=== PATIENT | female | born 1960 | race Caucasian/White ===

== ENCOUNTER 2020-07-05 08:21 | Outpatient (REF) | payer OTHER, SELFPAY | END 2020-07-05 08:22 | disposition home or self-care (01) | LOC: HO.LAB 08:21 | PROVIDERS: PCP Internal Medicine; Referring Provider Internal Medicine; Visit Provider Internal Medicine | DX: Z20.822 Contact with and (suspected) exposure to COVID-19 (principal) | CPT/HCPCS: 36415; C9803; U0003 ==

== ENCOUNTER 2021-08-27 16:41 | Inpatient (IN) | payer OTHER, SELFPAY ==
--- NOTE | ~2021-08-27 | XR_ITS ---
EXAMINATION: XR CHEST CLINICAL INFORMATION: Shortness of breath. COMPARISON: Chest radiograph done earlier today at 1:57 PM. TECHNIQUE: AP view of the chest was obtained. FINDINGS: Patient's rotation limits assessment of the left lower lobe where there are some questionable new patchy airspace opacities with a small left pleural effusion. There is also increased interstitial thickening in the right lower lobe. No pneumothorax. No acute osseous abnormalities. Unchanged cardiomegaly. XR/XR chest 1V IMPRESSION: Limited examination as above. However, accounting for these limitations, there appears to be increased interstitial thickening in the lower lungs with some questionable more focal patchy airspace opacities in the left lower lobe where there is also suggestion of a small left pleural effusion. Findings could be related with aspiration or developing infiltrates.
--- NOTE | ~2021-08-27 | CT_ITS ---
EXAMINATION: CT HEAD WITHOUT CONTRAST CLINICAL INFORMATION: Dizziness. Horizontal nystagmus. COMPARISON: None TECHNIQUE: Contiguous axial imaging was performed from the skull base to vertex without intravenous administration of contrast. This CT examination was performed using dose optimization techniques as appropriate, variously including the following: *Automated exposure control. *Adjustment of mA and/or kV according to patient size (this includes techniques or standardized protocols for targeted exams where dose is matched to indication/reason for exam; i.e. extremities or head). *Use of iterative reconstruction technique. DLP: 930 mGy-cm FINDINGS: There is no evidence of acute intracranial hemorrhage or territorial infarction. No abnormal mass effect or midline shift is seen. [id number] matter differentiation is well preserved. No extra-axial fluid collections are identified. The ventricles are normal in size. There is no abnormal attenuation within the brain parenchyma. The osseous structures and soft tissues are normal. Diffuse mucoperiosteal thickening throughout the maxillary sinuses and ethmoid air cells. CT/CT head/brain wo con IMPRESSION: No acute intracranial hemorrhage or mass effect.
--- NOTE | ~2021-08-27 | CT_ITS ---
EXAMINATION: CTA OF THE HEAD/NECK CLINICAL INFORMATION: Headache. Dizziness. Double vision. Hypertensive urgency. COMPARISON: Head CT from earlier today. TECHNIQUE: A routine non contrast head CT was performed earlier in the evening. This is followed by a 70 mL bolus of Omnipaque 350. Subsequent multidetector helical imaging was performed of the head and neck. Delayed post contrast imaging was also performed through the head. Multiplanar reformats and MIP were also obtained. Internal carotid artery stenoses are assessed in accordance with NASCET criteria unless otherwise indicated. This CT examination was performed using dose optimization techniques as appropriate, variously including the following: *Automated exposure control *Adjustment of mA and/or kV according to patient size (this includes techniques or standardized protocols for targeted exams where dose is matched to indication/reason for exam; i.e. extremities or head) *Use of iterative reconstruction technique DLP: 1770 mGy-cm. FINDINGS: CT HEAD: There is no evidence of acute intracranial hemorrhage or territorial infarction. No abnormal mass effect or midline shift is seen. Rodriguez to white matter differentiation is well preserved. No extra-axial fluid collections are identified. No suspicious leptomeningeal or parenchymal enhancement on the post-contrast images. No hydrocephalus. No significant volume loss. Patchy periventricular and deep white matter hypoattenuation is consistent with mild small vessel ischemic changes. Chronic appearing right periventricular frontal infarct. The osseous structures and soft tissues are normal. The mastoid air cells are well aerated. Moderate mucoperiosteal thickening throughout the paranasal sinuses. CTA NECK: The aortic arch is of normal caliber and the origins of the great vessels are patent without evidence of significant stenosis. The cervical portion of the vertebral arteries are patent bilaterally. No luminal irregularities in the common carotid arteries and the carotid bifurcations are patent bilaterally. The cervical portion of the internal carotid arteries are of normal caliber. The laryngeal structures and pharyngeal mucosal spaces are unremarkable. The oral cavity appears normal. The parotid and submandibular glands are normal. No pathologically enlarged lymph nodes. The thyroid gland is unremarkable. The lung apices are clear without evidence of pneumothorax. Spinal alignment is maintained. Mild cervical spondylosis is noted. CTA HEAD: The intradural portion of the vertebral arteries are of normal caliber. The basilar, superior cerebellar, and posterior communicating arteries are patent. The posterior, middle, and anterior cerebral arteries are of normal caliber without evidence of significant luminal irregularity. The left posterior cerebral artery is essentially supplied through the anterior circulation via the posterior communicating artery. No definite intracranial aneurysms. CT/CT angio head neck IMPRESSION: 1. No acute vascular abnormality. No large vessel occlusion or flow-limiting stenosis. 2. No acute intracranial finding.
--- NOTE | ~2021-08-27 | XR_ITS ---
EXAMINATION: XR CHEST CLINICAL INFORMATION: Aspiration COMPARISON: None TECHNIQUE: Frontal view of the chest was obtained. FINDINGS: The cardiac silhouette is enlarged. This appears increased in size from November 2008 exam. There is bilateral subsegmental atelectasis. No evidence of pneumonia is seen. There is no pleural effusion or pneumothorax. There are degenerative changes of the spine. XR/XR chest 1V IMPRESSION: Enlarged cardiac silhouette. This may be increased from prior chest x-ray. Bilateral subsegmental atelectasis. No evidence of pneumonia.
--- NOTE | ~2021-08-27 | XR_ITS ---
EXAMINATION: XR CHEST CLINICAL INFORMATION: Shortness of breath COMPARISON: Previous chest x-ray most recent from yesterday TECHNIQUE: Frontal view of the chest was obtained. FINDINGS: The cardiac silhouette is enlarged but stable. There may be pulmonary venous redistribution. The lungs are otherwise clear. There is no pleural effusion or pneumothorax. Bony structures are unremarkable. XR/XR chest 1V IMPRESSION: Stable enlargement of the cardiac silhouette. Question pulmonary venous redistribution.
--- NOTE | ~2021-08-27 | MR_ITS ---
EXAMINATION: MR BRAIN WITHOUT CONTRAST CLINICAL INFORMATION: Nystagmus, vertigo, and dysphagia. Rule out posterior CVA. COMPARISON: Head CT 08/27/2021. TECHNIQUE: Multiplanar, multisequence imaging of the brain was performed without intravenous contrast. FINDINGS: A small acute infarct is seen within the left lateral medulla best defined on diffusion series 3 image 6 and 01/07. No large or territorial infarction is seen. There is no hemorrhage, mass, or extra-axial fluid collection. Moderate T2/FLAIR hyperintensity is seen within the cerebral white matter and central velma compatible with chronic microangiopathy. The ventricles are normal in size without hydrocephalus. The major arterial flow voids are grossly preserved at the skull base. There is paranasal sinus mucosal thickening. MR/MR head/brain wo con IMPRESSION: Motion degraded exam. Small focus of acute infarction the left lateral medulla compatible with posterior inferior cerebellar artery territory ischemia. Background changes of moderate chronic microangiopathy.
--- NOTE | ~2021-08-27 | XR_ITS ---
EXAMINATION: XR CHEST CLINICAL INFORMATION: SOB COMPARISON: Chest 01/29/2022 TECHNIQUE: Frontal view of the chest was obtained. FINDINGS: The lungs are hypoexpanded with patchy opacity seen in the left upper lobe slightly more prominent than 08/29/2021 suspicious of delivery. There is left lower lobe retrocardiac consolidation as well. The right lung is relatively clear. Heart size is borderline enlarged. Pulmonary vascularity is normal. No gross bony abnormality seen XR/XR chest 1V IMPRESSION: New left upper lobe patchy opacity in left lower lobe consolidation consistent with infiltrates
--- NOTE | 2021-08-27 16:55 | ED.DIZZY ---
HPI - Dizziness General Chief Complaint: Dizziness Stated Complaint: dizzy Time Seen by Provider: 08/27/21 16:55 Source: patient, EMS and interpreter and translator Mode of arrival: EMS Limitations: no limitations History of Present Illness HPI Narrative: 61 y/o female with history of DM, HTN, obesity, asthma who presents to the ER with acute onset of dizziness that started about 4-5 hours ago when she got up out of bed to go use the bathroom. It has been constant since and she feels like the room is spinning. She felt like she was going to fall down when she tried to stand up. She denies history of similar episodes. She denies any chest pain, SOB, any numbness, weakness, difficultly speaking or confusion. She has been drinking less water lately. She does not check her glucose at home and is on metformin for her diabetes. She recently stopped taking her verapamil in the last month because the pharmacy will not fill it for her. She has been taking her lisinopril and HCTZ daily. She denies a headache at this time. MD elicited complaint: dizziness Onset (ago): hour(s) (4) Timing: sudden onset Severity: severe Description: room spinning Context: change in body position History of similar symptoms: No Exacerbating factors: movement/ambulation and change in body position Relieving factors: nothing Associated symptoms: denies other symptoms Related Data Home Medications Medication Instructions Recorded Confirmed albuterol sulfate 1 amp INHALATION Q4H PRN 08/27/21 albuterol sulfate 90 mcg/actuation 2 puff PO Q6H PRN 08/27/21 breath activated powder inhaler (ProAir RespiClick) Previous Rx's Medication Instructions Recorded acetaminophen 650 mg 650 mg PO Q8H PRN 30 Days #90 tab 08/07/21 tablet,extended release (Tylenol 8 Hour) aspirin 81 mg tablet,delayed 81 mg PO DAILY 90 Days #90 tab 08/07/21 release (Adult Aspirin Regimen) budesonide 0.5 mg/2 mL suspension 0.25 mg INHALATION BID 30 Days #60 08/07/21 for nebulization (Pulmicort) ml fluticasone propionate 50 1 spray INTRANASAL DAILY 30 Days 08/07/21 mcg/actuation nasal #16 g spray,suspension (Flonase Allergy Relief) hydrochlorothiazide 25 mg tablet 25 mg PO DAILY 90 Days #90 tab 08/07/21 lisinopril 10 mg tablet 10 mg PO DAILY 90 Days #90 tab 08/07/21 metformin 500 mg tablet 500 mg PO BID 90 Days #180 tab 08/07/21 verapamil 240 mg 24 hr 240 mg PO DAILY 90 Days #90 cap 08/07/21 capsule,extended release Allergies Allergy/AdvReac Type Severity Reaction Status Date / Time No Known Allergies Allergy Verified 08/07/21 16:33 Review of Systems Review of Systems: Constitutional: No Fever, No Chills ENT/Mouth: No sore throat, No Rhinorrhea, No Swallowing Difficulty Eyes: No Eye Pain, No Swelling, No Redness, No vision changes Cardiovascular: No Chest Pain, No SOB, No Orthopnea, No Edema Respiratory: No Cough, No Sputum, No Wheezing, No dyspnea Gastrointestinal: No Nausea, No Vomiting, No Diarrhea, No abdominal Pain, No Hematochezia, No Melena Genitourinary: No Dysuria, No Urinary Frequency, No Hematuria Musculoskeletal: No joint pain, No Myalgias Skin: No Skin Lesions, No rash Neuro: No Weakness, No Numbness, + Dizziness, No Headache Psych: + Anxiety/Panic, No Depression Heme/Lymph: No Bruising, No Lymphadenopathy Endocrine: No Polyuria, No Polydipsia PMFSH Past Medical History Medical History Diabetes mellitus Essential hypertension Moderate asthma Surgical History History of cholecystectomy History of cholecystectomy History of open reduction and internal fixation (ORIF) procedure History of open reduction and internal fixation (ORIF) procedure History of tubal ligation History of tubal ligation Family History Family History Father Medical history unknown Mother Diabetes Hypertension Father Medical history unknown Mother Hypertension Diabetes Social History Social History Housing: Unknown / Unable to assess Alcohol intake: never Patient Tobacco Use Status: Current everyday Tobacco user Tobacco use type: Cigarette Cigarettes Per Day: 2 Years Smoked: 31 years e-Cigarette/Vaping Use: Never Used Second Hand Smoke Exposure: Yes Advance Directives: No Advance Directives Information Provided: No service: No Current occupational status: other Physical Exam Vital Signs: Vital Signs: Last Vital Signs Temp 98.1 F 08/27/21 18:27 Pulse 74 08/27/21 18:27 Resp 16 08/27/21 18:27 BP 191/102 H 08/27/21 18:27 Pulse Ox 91 L 08/27/21 18:27 BMI result Body Mass Index 47.0 Appearance: Alert. Oriented X3. No acute distress. Eyes: Pupils equal, round and reactive to light. EOMI, +horizontal nystagmus ENT: Pharynx normal. Right TM with effusion, no erythema or bulging. Normal left TM. Neck: Normal inspection. Neck supple. CVS: Normal heart rate and rhythm. Pulses normal. Respiratory: No respiratory distress. Breath sounds normal. Abdomen: Obese, Soft and nontender. +BS x4 Skin: Skin warm and dry. Normal skin color. Normal skin turgor. No rashes. Extremities: No lower extremity edema. Neuro: Oriented X 3. No motor deficit. No sensory deficit. Strength equal and symmetrical throughout. normal speech. Nonfocal. CN II-XII intact. NIH Stroke Scale Internal: Initial- Upon Arrival Level of Consciousness: Alert Level of Consciousness Questions: Answers both questions correctly Level of Consciousness Commands: Performs both tasks correctly Best Gaze: Normal Visual: No visual loss Facial Palsy: Normal Motor Arm (Right): No drift Motor Arm (Left): No drift Motor Leg (Right): No drift Motor Leg (Left): No drift Limb Ataxia: Absent Sensory: Normal Best Language: No aphasia Dysarthia: Normal Extinction and Inattention: No abnormality Score: 0 Course Course Course Narrative: 61-year-old female presents to the ER with acute onset of dizziness this happened about 4-5 hours ago when she stood up quickly. On arrival she reports that she feels like the room is spinning. Initial BP 238/125. On examination hortizontal nystagmus which could be indicative of BPPV. Her neuro exam is otherwise non-focal. NIH 0. Not a tPA candidate at this time, BP significantly elevated, timeline somewhere between 4-5 hours unknown for sure. Will give dose of meclizine and re-evaluate. Will also give dose of IV Labetalol for HTN urgency. Will get CT head, EKG, orthostatics, and lab workup as well. Reevaluation(s) Reevaluation #1: BP improved to 180-190s systolic after IV labetalol. Utox + cocaine. She denies drugs or ETOH on arrival. She now admits to using cocaine yesterday. Prior to that it was about 1 month ago. She reports her dizziness persists, although might be a little bit better after meclizine. Reevaluation #2: CT head is negative. She reports dizziness persists and she now has a generalized headache. No vision changes or chest pain. BP 210/100 shortly after labetalol. Repeat 179/96 with larger BP cuff- po verapamil ordered. Asking for food, has not eaten all day. Reevaluation #3: Now c/o double vision and continued room spinning sensation. Horizontal nystagmus still present. Concern for possible posterior CVA. Will plan for admission for further workup and management. Will need MRI of the brain. Spoke with hospitalist who is requesting CTA head/neck, will admit. Patient and updated on plan of care. Consultations Consultation #1: hospitalist Dr. Alex [facility] - Dizziness Medical Records Attestation: I reviewed the patient's medical records. Lab Data Attestation: I reviewed the patient's lab results. Result diagrams: 08/27/21 17:20 08/27/21 17:20 Labs: Lab Results 08/27/21 08/27/21 08/27/21 Range/Units 17:20 17:20 17:20 WBC 8.6 (4.8-10.8) X10*3/uL RBC 4.81 (4.20-5.50) X10*6/uL Hgb 14.0 (12.0-16.0) g/dl Hct 42.7 (37.0-47.0) % MCV 88.8 (80.0-98.0) fL MCH 29.1 (27.0-33.0) pg MCHC 32.8 (31.0-35.0) g/dl RDW 12.9 (11.0-16.0) % Plt Count 396 (160-400) X10*3/uL MPV 9.0 L (9.4-12.3) fL Immature Gran % (Auto) 0.2 (0.0-0.4) % Neut % (Auto) 79.4 H (45-73) % Lymph % (Auto) 15.4 L (20-40) % [place] % (Auto) 3.9 (2-11) % Eos % (Auto) 0.9 (0-4) % Baso % (Auto) 0.2 (0-2) % Lymph # (Auto) 1.3 (1.2-4.9) X10*3/uL [place] # (Auto) 0.3 (0.1-1.2) X10*3/uL Eos # (Auto) 0.1 (0.0-0.4) X10*3/uL Baso # (Auto) 0.0 (0.0-0.2) X10*3/uL Abs Immat Gran (auto) 0.02 (0.00-0.03) X10*3/uL Absolute Neuts (auto) 6.8 (2.0-8.3) x10*3/uL Absolute Nucleated RBC 0.000 (0.0-0.012) X10*3/uL Nucleated RBC % (auto) 0.0 (0.0-0.2) /100WBC Sodium 138 (135-145) mmol/L Potassium 3.9 (3.3-5.1) mmol/L Chloride 98 (96-108) mmol/L Carbon Dioxide 29 (22-29) mmol/L Anion Gap 15 (12-20) BUN 8 L (9-16) mg/dL Creatinine 0.77 (0.5-1.4) mg/dL Estim Creat Clear Calc 90.6 Estimated GFR > 60 Random Glucose 179 H (60-115) mg/dL Calcium 9.2 (8.4-10.2) mg/dL Magnesium 1.8 (1.6-2.6) mg/dL Total Bilirubin 0.4 (0.0-1.0) mg/dL Direct Bilirubin 0.2 (0.0-0.5) mg/dL AST 13 (5-31) U/L ALT 12 (0-31) U/L Alkaline Phosphatase 73 (39-117) U/L Troponin I High Sens 7.9 (<3.5-17.0) ng/L Total Protein 7.1 (6.5-8.0) g/dL Albumin 4.1 (3.5-5.0) g/dL Urine Color Urine Appearance Urine pH (5.0-8.0) Ur Specific [place] (1.005-1.025) Urine Protein (NEG-TRACE) MG/DL Urine Glucose (UA) (NEG) MG/DL Urine Ketones (NEG) MG/DL Urine Blood (NEG) Urine Nitrite (NEG) Ur Leukocyte Esterase (NEG) Urine Opiates Screen (Not Detect) Urine Fentanyl Screen (Not Detect) Ur Barbiturates Screen (Not Detect) Ur Phencyclidine Scrn (Not Detect) Ur Amphetamines Screen (Not Detect) U Benzodiazepines Scrn (Not Detect) Urine Cocaine Screen (Not Detect) U Marijuana (THC) Screen (Not Detect) COVID-19 (MICHEL) (Negative) COVID-19 Clin Com 08/27/21 08/27/21 08/27/21 Range/Units 17:35 17:48 17:49 WBC (4.8-10.8) X10*3/uL RBC (4.20-5.50) X10*6/uL Hgb (12.0-16.0) g/dl Hct (37.0-47.0) % MCV (80.0-98.0) fL MCH (27.0-33.0) pg MCHC (31.0-35.0) g/dl RDW (11.0-16.0) % Plt Count (160-400) X10*3/uL MPV (9.4-12.3) fL Immature Gran % (Auto) (0.0-0.4) % Neut % (Auto) (45-73) % Lymph % (Auto) (20-40) % [place] % (Auto) (2-11) % Eos % (Auto) (0-4) % Baso % (Auto) (0-2) % Lymph # (Auto) (1.2-4.9) X10*3/uL [place] # (Auto) (0.1-1.2) X10*3/uL Eos # (Auto) (0.0-0.4) X10*3/uL Baso # (Auto) (0.0-0.2) X10*3/uL Abs Immat Gran (auto) (0.00-0.03) X10*3/uL Absolute Neuts (auto) (2.0-8.3) x10*3/uL Absolute Nucleated RBC (0.0-0.012) X10*3/uL Nucleated RBC % (auto) (0.0-0.2) /100WBC Sodium (135-145) mmol/L Potassium (3.3-5.1) mmol/L Chloride (96-108) mmol/L Carbon Dioxide (22-29) mmol/L Anion Gap (12-20) BUN (9-16) mg/dL Creatinine (0.5-1.4) mg/dL Estim Creat Clear Calc Estimated GFR Random Glucose (60-115) mg/dL Calcium (8.4-10.2) mg/dL Magnesium (1.6-2.6) mg/dL Total Bilirubin (0.0-1.0) mg/dL Direct Bilirubin (0.0-0.5) mg/dL AST (5-31) U/L ALT (0-31) U/L Alkaline Phosphatase (39-117) U/L Troponin I High Sens (<3.5-17.0) ng/L Total Protein (6.5-8.0) g/dL Albumin (3.5-5.0) g/dL Urine Color STRAW Urine Appearance CLEAR Urine pH 8.0 (5.0-8.0) Ur Specific [place] 1.015 (1.005-1.025) Urine Protein NEG (NEG-TRACE) MG/DL Urine Glucose (UA) NEG (NEG) MG/DL Urine Ketones NEG (NEG) MG/DL Urine Blood NEG (NEG) Urine Nitrite NEG (NEG) Ur Leukocyte Esterase NEG (NEG) Urine Opiates Screen Not Detected (Not Detect) Urine Fentanyl Screen Not Detected (Not Detect) Ur Barbiturates Screen Not Detected (Not Detect) Ur Phencyclidine Scrn Not Detected (Not Detect) Ur Amphetamines Screen Not Detected (Not Detect) U Benzodiazepines Scrn Not Detected (Not Detect) Urine Cocaine Screen POSITIVE H (Not Detect) U Marijuana (THC) Screen Not Detected (Not Detect) COVID-19 (MICHEL) Negative (Negative) COVID-19 Clin Com See Note ECG Data Attestation: I personally reviewed and interpreted this ECG as follows: ECG interpretation date: 08/27/21 Prior ECG tracings: not available for review Interpretation: Normal sinus rhythm with premature atrial complexes, heart rate 73 beats per minute, normal NC interval, no ST segment elevations or depressions. Critical Care Time Critical Care Time Critical Care Time: Yes Total Critical Care Time: 46 Attestation: I have personally provided critical care time exclusive of time spent on separately billable procedures. Time includes review of lab data, radiology results, frequent bedside reasessments, discussion with consultants, and monitoring for potential decompensation. Intervention performed as documented. Discharge Plan Discharge Clinical Impression: Hypertensive urgency, Dizziness Patient Disposition: Admitted As Inpatient
--- NOTE | 2021-08-27 16:56 | ECG_ITS ---
Test Reason : dizzyness Blood Pressure : / mmHG Vent. Rate : 073 BPM Atrial Rate : 073 BPM P-R Int : 114 ms QRS Dur : 086 ms QT Int : 434 ms P-R-T Axes : 057 011 056 degrees QTc Int : 478 ms Sinus rhythm with Premature atrial complexes Otherwise normal ECG When compared to the previous EKG of No significant changes seen Referred By: Estefany Kelley Electronically Signed By:Pawel Tasng
[2021-08-27 17:01] VITALS: BP 238/125; PULSE 80; RESP 18; TEMP 36.8; O2SAT 96; BMI 47.0
[2021-08-27] MEDS: Meclizine HCl 25 MG TABLET 50 MG PO (17:10)
[2021-08-27 17:36] LABS: MANUAL DIFF FLAG NO
[2021-08-27] MEDS: Labetalol HCL 100 MG/20 ML VIAL 20 MG IVPUSH (17:36)
[2021-08-27 17:38] LABS: Basophils Percent Auto 0.2 % (0-2); Eosinophils Absolute Auto 0.1 X10*3/uL (0.0-0.4); Eosinophils Percent Auto 0.9 % (0-4); Hematocrit 42.7 % (37.0-47.0); Imm Gran Abs Auto 0.02 X10*3/uL (0.00-0.03); Imm Gran Pct Auto 0.2 % (0.0-0.4); Lymphocytes Absolute Auto 1.3 X10*3/uL (1.2-4.9); Lymphocytes Percent Auto 15.4 % (20-40); Mean Corpuscular HGB Conc 32.8 g/dl (31.0-35.0); Mean Corpuscular Hemoglobin 29.1 pg (27.0-33.0); Mean Corpuscular Volume 88.8 fL (80.0-98.0); Monocytes Absolute Auto 0.3 X10*3/uL (0.1-1.2); Monocytes Percent Auto 3.9 % (2-11); Neutrophils Absolute Auto 6.8 x10*3/uL (2.0-8.3); Neutrophils Percent Auto 79.4 % (45-73); Platelet Count 396 X10*3/uL (160-400); Red Blood Count 4.81 X10*6/uL (4.20-5.50); Red Cell Distribution Width 12.9 % (11.0-16.0); White Blood Count 8.6 X10*3/uL (4.8-10.8)
[2021-08-27 17:55] LABS: Appearance Urine CLEAR; Color Urine STRAW; Glucose Urine UA NEG (NEG); Leukocyte Esterase Urine NEG (NEG); Nitrite Urine NEG (NEG); Specific Gravity - Urine 1.015 (1.005-1.025); Urine Blood NEG (NEG); Urine Ketones NEG (NEG); Urine Protein NEG (NEG-TRACE)
[2021-08-27 17:59] VITALS: BP 187/110; PULSE 79; RESP 17; TEMP 37.1; O2SAT 95
[2021-08-27 18:05] LABS: Alanine Aminotransferase 12 U/L (0-31); Albumin Level 4.1 g/dL (3.5-5.0); Alkaline Phosphatase 73 U/L (39-117); Anion Gap 15 (12-20); Aspartate Amino Transferase 13 U/L (5-31); Bilirubin Direct 0.2 mg/dL (0.0-0.5); Bilirubin Total 0.4 mg/dL (0.0-1.0); Blood Urea Nitrogen 8 mg/dL (9-16); Calcium 9.2 mg/dL (8.4-10.2); Carbon Dioxide 29 mmol/L (22-29); Chloride 98 mmol/L (96-108); Creatinine Clr Calc Pharmacy 90.6; Estimated Glomerular Filt Rate > 60; Glucose Random 179 mg/dL (60-115); Magnesium 1.8 mg/dL (1.6-2.6); Potassium 3.9 mmol/L (3.3-5.1); Sodium 138 mmol/L (135-145); Total Protein 7.1 g/dL (6.5-8.0); Troponin-I High Sensitivity 7.9 ng/L (<3.5-17.0)
[2021-08-27 18:08] LABS: Amphetamine Screen Urine Not Detected (Not Detect); Barbiturates, Urine Not Detected (Not Detect); Benzodiazepines Screen Urine Not Detected (Not Detect); Cannabinoid Screen Urine Not Detected (Not Detect); Cocaine Screen Urine POSITIVE (Not Detect); Fentanyl, urine Not Detected (Not Detect); Opiate Screen Urine Not Detected (Not Detect); Phencyclidine Screen Urine Not Detected (Not Detect)
[2021-08-27 18:18] LABS: IDNOW Serial# 55D5AD1C
[2021-08-27 18:19] LABS: COVID-19 Test Negative (Negative)
[2021-08-27 18:27] VITALS: BP 191/102; PULSE 74; RESP 16; TEMP 36.7; O2SAT 91
[2021-08-27 21:07] VITALS: BP 172/92; PULSE 68
--- NOTE | 2021-08-27 21:10 | PC.NURSE ---
Attempted Orthostatics at 21:10 - pt too unstable to sit or stand at this time.
--- NOTE | 2021-08-27 21:16 | PHA.MEDREC ---
Pharmacy Consult ? Medication Reconciliation Pharmacy has completed the medication reconciliation. No remarkable issues. Ana Espinoza, FantasmaD
[2021-08-27] MEDS: Acetaminophen 325 MG TABLET 975 MG PO (22:21)
[2021-08-27] MEDS: VerapamiL HCL SR 240 MG TABLET.ER PO (22:22)
[2021-08-27] MEDS: iohexoL 350 MG/ML 100 ML INFUS..BTL IV (22:43)
--- NOTE | 2021-08-27 22:53 | P.HPHOSP_ITS ---
History of Present Illness Date of Service: 08/27/21 Chief Complaint: dizziness 61-year-old female with a past medical history of hypertension, hyperlipidemia, diabetes, substance abuse presented to the hospital with a chief complaint of dizziness. patient reported that at 06:30 in the morning she went to the bed and she woke up around 03:00 o'clock; when she woke up she felt dizzy, felt like room spinning associated nausea; denied any chest pain or palpitations. mentioned that she was not able to get up; felt tired; denies any fever chills cough. denies any headaches or blurry visions. patient mentions that she has not been taking her verapamil; only taking lisinopril hydrochlorothiazide. denies any gi gu symptoms. review of all other systems is negative except mentioned above er course: per er team patient on presentation noted to have systolic blood pressure in 230s; ct head was done which showed no acute findings; exam was grossly nonfocal except for mild nystagmus horizontally; no focal deficits; patient was given iv labetalol; u tox was positive for cocaine; ct angio head and neck was done which showed no acute findings; patient continued to have dizziness/ room spinning; given dose of meclizine with no significant improvement. admitted to the hospital for further management [facility] Medical History Diabetes mellitus Essential hypertension Moderate asthma Family History Father Medical history unknown Mother Diabetes Hypertension Father Medical history unknown Mother Hypertension Diabetes Surgical History History of cholecystectomy History of cholecystectomy History of open reduction and internal fixation (ORIF) procedure History of open reduction and internal fixation (ORIF) procedure History of tubal ligation History of tubal ligation Social History Housing: Unknown / Unable to assess Alcohol intake: never Patient Tobacco Use Status: Current everyday Tobacco user Tobacco use type: Cigarette Cigarettes Per Day: 2 Years Smoked: 31 years e-Cigarette/Vaping Use: Never Used Second Hand Smoke Exposure: Yes Advance Directives: No Advance Directives Information Provided: No service: No Current occupational status: other Meds Allergies Allergy/AdvReac Type Severity Reaction Status Date / Time No Known Allergies Allergy Verified 08/07/21 16:33 Active Medications: Current Medications Acetaminophen (Acetaminophen 325 Mg Tablet) 650 mg PO Q6H PRN PRN Reason: Pain, Mild (Pain Scale 1-3) Dextrose (Dextrose 50 % 25 Gm/50 Ml Vial) 25 gm IVPUSH Q15M PRN; Protocol PRN Reason: per Hypoglycemia Standing Ord. Glucose (Glucose Gel 15 Gm Gel..Gram.) 15 gm PO Q15M PRN; Protocol PRN Reason: per Hypoglycemia Standing Ord. Heparin Sodium (Porcine) (Heparin Sodium,Porcine 5,000 Unit/Ml Vial) 5,000 unit SUBCUT Q8H EUGENIO Hydromorphone HCl (Hydromorphone Hcl 1 Mg/Ml Syringe) 0.5 mg IVPUSH Q4H PRN; Protocol PRN Reason: Pain, Severe (Pain Scale 7-10) Insulin Human Lispro (Insulin Lispro 100 Unit/Ml 3 Ml Vial) 0 unit SUBCUT QIDACHS [facility]; Protocol Melatonin (Melatonin 3 Mg Tablet) 6 mg PO BEDTIME PRN PRN Reason: Insomnia Pharmacy Consult (Consult Rx Perform Med Rec) 1 each MISCELLANE ONCE PRN PRN Reason: Consult order Senna (Sennosides 8.6 Mg Tablet) 17.2 mg PO BEDTIME PRN PRN Reason: Constipation Sodium Chloride (0.9 % Sodium Chloride Flush 3 Ml Syringe) [address] [facility] Home Medications Medication Instructions Recorded Confirmed Last Taken Type albuterol sulfate 1 amp INHALATION Q4H PRN 08/27/21 08/27/21 Unknown History albuterol sulfate 90 mcg/actuation 2 puff PO Q6H PRN 08/27/21 08/27/21 Unknown History breath activated powder inhaler (ProAir RespiClick) Physical Exam Vital Signs and Narrative: Vital Signs: Last Vital Signs Temp 98.1 F 08/27/21 18:27 Pulse 68 08/27/21 21:07 Resp 16 08/27/21 18:27 BP 172/92 H 08/27/21 21:07 Pulse Ox 91 L 08/27/21 18:27 BMI result Body Mass Index 47.0 GEN: APPEARS BE IN NO ACUTE DISTRESS HEENT: NCAT, MOIST [place]. PULMONARY: VESICULAR BREATH SOUNDS, FAIR AIR ENTRY CVS: NORMAL S1-S2 ABDOMEN: BS+, SOFT, NONTENDER EXTREMITIES: WARM WELL PERFUSED NEURO: ALERT AND AWAKE. grossly nonfocal Results Labs CBC and Chem 7: 08/27/21 17:20 08/27/21 17:20 Labs: Laboratory Results - last 24 hr 08/27/21 08/27/21 08/27/21 17:20 17:20 17:35 MCV 88.8 MCH 29.1 MCHC 32.8 RDW 12.9 Plt Count 396 MPV 9.0 L Immature Gran % (Auto) 0.2 Neut % (Auto) 79.4 H Lymph % (Auto) 15.4 L [place] % (Auto) 3.9 Eos % (Auto) 0.9 Baso % (Auto) 0.2 Lymph # (Auto) 1.3 [place] # (Auto) 0.3 Eos # (Auto) 0.1 Baso # (Auto) 0.0 Abs Immat Gran (auto) 0.02 Absolute Neuts (auto) 6.8 Absolute Nucleated RBC 0.000 Nucleated RBC % (auto) 0.0 Anion Gap 15 Estim Creat Clear Calc 90.6 Estimated GFR > 60 Random Glucose 179 H Calcium 9.2 Magnesium 1.8 Total Bilirubin 0.4 Direct Bilirubin 0.2 AST 13 ALT 12 Alkaline Phosphatase 73 Total Protein 7.1 Albumin 4.1 Urine Color Urine Appearance Urine pH Ur Specific [place] Urine Protein Urine Glucose (UA) Urine Ketones Urine Blood Urine Nitrite Ur Leukocyte Esterase Urine Opiates Screen Urine Fentanyl Screen Ur Barbiturates Screen Ur Phencyclidine Scrn Ur Amphetamines Screen U Benzodiazepines Scrn Urine Cocaine Screen U Marijuana (THC) Screen COVID-19 (MICHEL) Negative COVID-19 Clin Com See Note 08/27/21 08/27/21 17:48 17:49 MCV MCH MCHC RDW Plt Count MPV Immature Gran % (Auto) Neut % (Auto) Lymph % (Auto) [place] % (Auto) Eos % (Auto) Baso % (Auto) Lymph # (Auto) [place] # (Auto) Eos # (Auto) Baso # (Auto) Abs Immat Gran (auto) Absolute Neuts (auto) Absolute Nucleated RBC Nucleated RBC % (auto) Anion Gap Estim Creat Clear Calc Estimated GFR Random Glucose Calcium Magnesium Total Bilirubin Direct Bilirubin AST ALT Alkaline Phosphatase Total Protein Albumin Urine Color STRAW Urine Appearance CLEAR Urine pH 8.0 Ur Specific [place] 1.015 Urine Protein NEG Urine Glucose (UA) NEG Urine Ketones NEG Urine Blood NEG Urine Nitrite NEG Ur Leukocyte Esterase NEG Urine Opiates Screen Not Detected Urine Fentanyl Screen Not Detected Ur Barbiturates Screen Not Detected Ur Phencyclidine Scrn Not Detected Ur Amphetamines Screen Not Detected U Benzodiazepines Scrn Not Detected Urine Cocaine Screen POSITIVE H U Marijuana (THC) Screen Not Detected COVID-19 (MICHEL) COVID-19 Clin Com Imaging Radiologist's Impressions: Impressions Head CT 08/27/21 18:34 IMPRESSION: No acute intracranial hemorrhage or mass effect. Assessment and Plan (1) Hypertensive urgency: Status: Acute (2) Dizziness: Status: Acute Plan 61-year-old female with a past medical history of hypertension, hyperlipidemia, diabetes, substance abuse presented to the hospital with a chief complaint of dizziness. admitted for following hypertensive urgency: patient reported that she used cocaine the night before; denies any headaches or blurry visions. reports she has not been taking verapamil. continue patient on lisinopril, hydrochlorothiazide. will defer to the day hospitalist to confirm with the pcp if verapamil has been discontinued labetalol p.r.n. dizziness: patient reports dizziness as room spinning. ct head and ct angio head and neck showed no acute findings. ekg nonischemic troponin negative telemetry fall precautions pt/ot eventually neurology consult meclizine p.r.n. diabetes: insulin sliding scale dvt prophylaxis: subcu heparin code status: full code Quality Stroke Does the patient have a stroke diagnosis?: No VTE Prior VTE?: No VTE Risk Level:: Medical - moderate - high VTE Device Contraindication: Treatment Not Indicated VTE Drug Contraindication: N/A - Med Ordered
--- NOTE | 2021-08-27 23:07 | PC.NURSE ---
Pt repositioned, placed on bed side commode. may care completed and pt repositoined.
[2021-08-27 23:45] VITALS: BP 189/89; PULSE 84; RESP 16; O2SAT 95
[2021-08-28] VITALS (7 sets, daily range): BP systolic 135–203; BP diastolic 64–140; PULSE 75–97; RESP 13–20; TEMP 36.6; O2SAT 91–98
[2021-08-28] MEDS: Heparin Sodium,Porcine 5,000 UNIT/ML VIAL 5000 UNIT SUBCUT ×2 (01:13→07:46)
--- NOTE | 2021-08-28 01:28 | PC.NURSE ---
pt is able to speak in full sentence and responds to questions appropriately. pt continue to complain about dizziness provider into assess pt.
[2021-08-28] MEDS: Labetalol HCL 100 MG/20 ML VIAL 10 MG IVPUSH (03:51)
[2021-08-28 06:30] LABS: MANUAL DIFF FLAG NO
[2021-08-28 06:52] LABS: Basophils Percent Auto 0.2 % (0-2); Eosinophils Absolute Auto 0.1 X10*3/uL (0.0-0.4); Eosinophils Percent Auto 0.6 % (0-4); Hematocrit 43.4 % (37.0-47.0); Hemoglobin 14.2 g/dl (12.0-16.0); Imm Gran Abs Auto 0.11 X10*3/uL (0.00-0.03); Lymphocytes Absolute Auto 1.6 X10*3/uL (1.2-4.9); Lymphocytes Percent Auto 14.5 % (20-40); Mean Corpuscular HGB Conc 32.7 g/dl (31.0-35.0); Mean Corpuscular Hemoglobin 29.1 pg (27.0-33.0); Mean Corpuscular Volume 88.9 fL (80.0-98.0); Mean Platelet Volume 9.2 fL (9.4-12.3); Monocytes Absolute Auto 0.5 X10*3/uL (0.1-1.2); Monocytes Percent Auto 4.6 % (2-11); Neutrophils Absolute Auto 8.4 x10*3/uL (2.0-8.3); Neutrophils Percent Auto 79.1 % (45-73); Platelet Count 395 X10*3/uL (160-400); Red Blood Count 4.88 X10*6/uL (4.20-5.50); White Blood Count 10.7 X10*3/uL (4.8-10.8)
[2021-08-28 06:58] LABS: Troponin-I High Sensitivity 15.2 ng/L (<3.5-17.0)
[2021-08-28 06:59] LABS: Anion Gap 13 (12-20); Blood Urea Nitrogen 8 mg/dL (9-16); Carbon Dioxide 29 mmol/L (22-29); Chloride 98 mmol/L (96-108); Creatinine Clr Calc Pharmacy 89.4; Estimated Glomerular Filt Rate > 60; Glucose Random 141 mg/dL (60-115); Potassium 3.6 mmol/L (3.3-5.1); Sodium 136 mmol/L (135-145)
[2021-08-28] MEDS: 0.9 % Sodium Chloride Flush 3 ML SYRINGE IVFLUSH ×2 (07:46→17:04)
[2021-08-28] MEDS: Meclizine HCl 25 MG TABLET PO (07:53)
--- NOTE | 2021-08-28 07:55 | PC.NURSE ---
pt medicated with meclazine for dizziness, pt took one sip of water and started to coughing and spitting up,
--- NOTE | 2021-08-28 08:03 | PC.NURSE ---
pt sleepy but easily arousable, respirations even unlabored, pt reports feeling dizzy, denies pain at this time
--- NOTE | 2021-08-28 10:30 | P.CNNE_ITS ---
History of Present Illness Data of Consult Service Date: 08/28/21 Primary Care Provider: Unknown Physician HPI Reason for consult: Dizziness 61 years old woman with hypertension who woke up in the middle of night and felt severe dizziness like things were moving. When she tried to walk she was unsteady. When I saw her she was still feeling dizzy. There was no recent cold or flu-like illness or headache. There was no change in her speech or language pattern or any focal weakness. Review of Systems Review of Systems: No recent cold or flu-like illness per [facility] Past Medical History Medical History Diabetes mellitus Essential hypertension Moderate asthma Family History Family History Father Medical history unknown Mother Diabetes Hypertension Father Medical history unknown Mother Hypertension Diabetes Surgical History Surgical History History of cholecystectomy History of cholecystectomy History of open reduction and internal fixation (ORIF) procedure History of open reduction and internal fixation (ORIF) procedure History of tubal ligation History of tubal ligation Social History Social History Housing: Unknown / Unable to assess Alcohol intake: never Patient Tobacco Use Status: Current everyday Tobacco user Tobacco use type: Cigarette Cigarettes Per Day: 2 Years Smoked: 31 years e-Cigarette/Vaping Use: Never Used Second Hand Smoke Exposure: Yes Advance Directives: No Advance Directives Information Provided: No service: No Current occupational status: other Meds Allergies Allergy/AdvReac Type Severity Reaction Status Date / Time No Known Allergies Allergy Verified 08/07/21 16:33 Active Medications: Current Medications Acetaminophen (Acetaminophen 325 Mg Tablet) 650 mg PO Q6H PRN PRN Reason: Pain, Mild (Pain Scale 1-3) Albuterol Sulfate (Albuterol Sulfate (0.083%) 2.5 Mg/3 Ml Vial.Neb) 2.5 mg INHALE Q4H PRN PRN Reason: wheezing Aspirin (Aspirin Enteric Coated 81 Mg Tablet.) 81 mg PO DAILY EUGENIO Dextrose (Dextrose 50 % 25 Gm/50 Ml Vial) 25 gm IVPUSH Q15M PRN; Protocol PRN Reason: per Hypoglycemia Standing Ord. Fluticasone Propionate (Fluticasone Propionate Nasal 16 Gm [place]) 1 spray NOSTRIL-B DAILY [facility] Glucose (Glucose Gel 15 Gm Gel..Gram.) 15 gm PO Q15M PRN; Protocol PRN Reason: per Hypoglycemia Standing Ord. Heparin Sodium (Porcine) (Heparin Sodium,Porcine 5,000 Unit/Ml Vial) 5,000 unit SUBCUT Q8H [facility] Last Admin: 08/28/21 07:46 Dose: 5,000 unit Documented by: Hydrochlorothiazide (Hydrochlorothiazide 25 Mg Tablet) 25 mg PO DAILY [facility]; Protocol Hydromorphone HCl (Hydromorphone Hcl 1 Mg/Ml Syringe) 0.5 mg IVPUSH Q4H PRN; Protocol PRN Reason: Pain, Severe (Pain Scale 7-10) Insulin Human Lispro (Insulin Lispro 100 Unit/Ml 3 Ml Vial) 0 unit SUBCUT QIDACHS [facility]; Protocol Last Admin: 08/28/21 07:47 Dose: Not Given Documented by: Labetalol HCl (Labetalol Hcl 100 Mg/20 Ml Vial) 10 mg IVPUSH Q4H PRN PRN Reason: BP>160/90 Last Admin: 08/28/21 03:51 Dose: 10 mg Documented by: Lisinopril (Lisinopril 10 Mg Tablet) 10 mg PO DAILY [facility]; Protocol Meclizine HCl (Meclizine Hcl 25 Mg Tablet) 25 mg PO Q8H PRN PRN Reason: dizziness Last Admin: 08/28/21 07:53 Dose: 25 mg Documented by: Melatonin (Melatonin 3 Mg Tablet) 6 mg PO BEDTIME PRN PRN Reason: Insomnia Non-Formulary Medication (Budesonide [Pulmicort]) 0.25 mg INHALE BID [facility] Pharmacy Consult (Consult Rx Perform Med Rec) 1 each MISCELLANE ONCE PRN PRN Reason: Consult order Senna (Sennosides 8.6 Mg Tablet) 17.2 mg PO BEDTIME PRN PRN Reason: Constipation Sodium Chloride (0.9 % Sodium Chloride Flush 3 Ml Syringe) 3 ml IVFLUSH QSHIFT [facility] Last Admin: 08/28/21 07:46 Dose: 3 ml Documented by: Home Medications Medication Instructions Recorded Confirmed Last Taken Type albuterol sulfate 1 amp INHALATION Q4H PRN 08/27/21 08/27/21 Unknown History albuterol sulfate 90 mcg/actuation 2 puff PO Q6H PRN 08/27/21 08/27/21 Unknown History breath activated powder inhaler (ProAir RespiClick) Physical Exam Vital Signs: Vital Signs: Last Vital Signs Temp 97.8 F 08/28/21 04:09 Pulse 88 08/28/21 07:42 Resp 20 08/28/21 07:42 BP 168/94 H 08/28/21 07:42 Pulse Ox 97 08/28/21 07:42 BMI result Body Mass Index 47.0 Neuro: Other: She was alert and awake with normal spontaneity of speech fluency comprehension and affect. Into was performed with the help of an quantitative software engineer. Face was symmetrical. Tongue was midline. Pupils were equal and reactive to light. Extraocular muscles were intact. Visual claire are full to threat. There was mild left-sided drift. There was mild left [id number] ataxia and mild left- sided leg weakness. Plantars were flexors. Deep tendon reflexes were absent. Her initial blood pressure was 238/125. Results Labs CBC & Chem 7: 08/28/21 06:24 08/28/21 06:24 Labs: Short CBC 08/27/21 08/28/21 Range/Units 17:20 06:24 WBC 8.6 10.7 (4.8-10.8) X10*3/uL Hgb 14.0 14.2 (12.0-16.0) g/dl Hct 42.7 43.4 (37.0-47.0) % Plt Count 396 395 (160-400) X10*3/uL BMP 08/27/21 08/28/21 17:20 06:24 Sodium 138 136 Potassium 3.9 3.6 Chloride 98 98 Carbon Dioxide 29 29 BUN 8 L 8 L Creatinine 0.77 0.78 Calcium 9.2 9.0 Liver Function 08/27/21 Range/Units 17:20 Total Bilirubin 0.4 (0.0-1.0) mg/dL Direct Bilirubin 0.2 (0.0-0.5) mg/dL AST 13 (5-31) U/L ALT 12 (0-31) U/L Alkaline Phosphatase 73 (39-117) U/L Albumin 4.1 (3.5-5.0) g/dL Urine 08/27/21 Range/Units 17:49 Urine Color STRAW Urine Appearance CLEAR Urine pH 8.0 (5.0-8.0) Ur Specific [place] 1.015 (1.005-1.025) Urine Protein NEG (NEG-TRACE) MG/DL Urine Glucose (UA) NEG (NEG) MG/DL Noncontrast head CT did not reveal any acute abnormality though moderate microvascular ischemic changes were noted. CTA did not reveal any vascular lesion. Assessment and Plan (1) Dizziness: Status: Acute 61 years old woman with severe hypertension presented with acute onset of dizziness and unsteadiness. Her examination revealed mild left hemiparesis and imaging chronic microvascular ischemic changes. There is fair possibility of ischemic lesion or hypertension related encephalopathy. Blood pressure control and a noncontrast MRI of brain is recommended. Procedures Date of Service Date of Service: 08/28/21
[2021-08-28 11:27] LABS: HBc Num1 0.07 S/CO (0.00-0.79); HIV AB/AG Nonreactive (Nonreactive); HIV Num 1 0.03 S/CO (0.00-0.99); Hepatitis B Core Antibody Nonreactive (Nonreactive); Hepatitis B Surface Antigen Negative (Negative); ~HepC Num1 0.06 S/CO (0.00-0.79); ~Hepatitis B Surface Antibody NONREACTIVE (Nonreactive); ~Hepatitis C Antibody Nonreactive (Nonreactive)
--- NOTE | 2021-08-28 12:16 | PC.NURSE ---
report obtained from zan rubin being held npo due to swallow issues, [facility]- screening form done by staff prior to arrival of this nurse
--- NOTE | 2021-08-28 12:19 | MHC.CM.PN ---
CM MET WITH PT WITH THE ASSISTANCE OF A [facility] SPECIALIST PT REPORTS SHE LIVES AT HOME WITH HER AND IS INDEPENDENT WITH CARE PT DENIES USING HOME SERVICES AND STATES SHE HAS HOME OXYGEN THROUGH [facility] PT REPORTS ALFREDO MACKAY IS HER PCP PT COMPLETED A HCP TODAY NAMING HER S/O KASSY REYNOSO AND DAUGHTER, KAYLA PHILIP, HER PRIMARY AND ALTERNATE AGENTS RESPECTIVELY PT REPORTS HE RECEIVED THE M-Factor VACCINE AGAINST COVID-19, BUT NOT THE BOOSTER OBSERVATION NOTICE DELIVERED, COPY SENT TO [facility] CURRENT DC PLAN IS HOME VS HOME WITH [facility] FAMILY TO TRANSPORT
--- NOTE | 2021-08-28 12:25 | PC.NURSE ---
patient to MRI
--- NOTE | 2021-08-28 13:04 | MHC.SL.SWA ---
Speech Pathologist Impression: Oropharyngeal dysphagia Risk of Aspiration Due to: Lethargy Dysphasia Diet Status: Upgrade Liquid Consistency and Strategies for Safe Swallow: Liquid Intake Recommendation: [place] Thick Liquid Intake Strategies: Small Sips Solid Food Consistency: Dietary Recommendations: Regular Additional Modifications to Solid Foods: Patient displays overt s/s of aspiration when drinking thin liquid. Recommend REGULAR solids and NECTAR THICK liquid, pills WHOLE in PUREE. Patient is able to feed herself, but may require assistance with tray and would benefit from intermittent supervision to monitor tolerance and ensure aspiration precautions. Message sent to MD, RN, RD. BREAKFAST BAR ATTENDANT will continue to follow. Oral Medication Intake: Whole with Puree Please contact the pharmacy regarding appropriate crushable or liquid drug formulations that are available whenever modified delivery is recommended. Compensatory Strategies and Precautions to be Taken for Safe Swallow: Sitting Upright (90 deg) Small Bites and Sips Alternate Liquids/Solids Rate of Ingestion Change Supervision While Eating and Drinking for Safe Swallow: Intermittent Supervision Swallowing Recommended Treatments: Compens. Strategy Educat. Recommendation for Speech: Inpatient Speech Therapy Comment: BREAKFAST BAR ATTENDANT will f/u M-F Lever Operator Clinican/Clinical Fellow: No Supervisory Statement: I have reviewed and agree with the student/clinical fellow's documentation: N/A Speech Language Pathologist: Zelda De Santiago M.A., [facility]AK[facility]ST [facility] ATTENDANT
--- NOTE | 2021-08-28 13:27 | PC.NURSE ---
pt returned from mri
--- NOTE | 2021-08-28 13:54 | P.PNIM_ITS ---
Subjective Subjective Date of Service: 08/28/21 Interval History: This history was taken in Swedish from the patient. Pt c/o vertigo onset yesterday at 13:00. Last known well 6:30 yesterday. Having difficulty swallowing liquids- coughed this AM. Review of Systems Review of Systems: Yes all other systems are reviewed and are negative Physical Exam Vital Signs: Vital Signs: Last Vital Signs Temp 97.8 F 08/28/21 04:09 Pulse 91 08/28/21 10:47 Resp 20 08/28/21 10:47 BP 135/87 08/28/21 10:47 Pulse Ox 94 08/28/21 10:47 BMI result Body Mass Index 47.0 Gen: in no acute distress HEENT: sclera anicteric, moist mucus membranes Neck: supple Lungs: clear to auscultation bilaterally Heart: regular rate and rhythm, no murmurs Abd: soft, non-tender, non-distended, morbid obesity Ext: no edema Skin: warm/well-perfused Neuro: alert and oriented x3, horizontal nystagmus present, no pronator drift, no extremity weakness, no facial droop, L dysmetria present Psych: appropriate affect Objective Data Active Medications Acetaminophen (Acetaminophen 325 Mg Tablet) 650 mg PO Q6H PRN PRN Reason: Pain, Mild (Pain Scale 1-3) Albuterol Sulfate (Albuterol Sulfate (0.083%) 2.5 Mg/3 Ml Vial.Neb) 2.5 mg INHALE Q4H PRN PRN Reason: wheezing Aspirin (Aspirin Enteric Coated 81 Mg Tablet.) 81 mg PO DAILY [facility] Last Admin: 08/28/21 12:16 Dose: Not Given Documented by: DERRICK Non-Admin Reason: NPO Atorvastatin Calcium (Atorvastatin Calcium 80 Mg Tablet) 80 mg PO DAILY [facility] Dextrose (Dextrose 50 % 25 Gm/50 Ml Vial) 25 gm IVPUSH Q15M PRN; Protocol PRN Reason: per Hypoglycemia Standing Ord. Fluticasone Propionate (Fluticasone Propionate Nasal 16 Gm [place]) 1 spray NOSTRIL-B DAILY [facility] Last Admin: 08/28/21 12:17 Dose: Not Given Documented by: DERRICK Non-Admin Reason: See Note Glucose (Glucose Gel 15 Gm Gel..Gram.) 15 gm PO Q15M PRN; Protocol PRN Reason: per Hypoglycemia Standing Ord. Heparin Sodium (Porcine) (Heparin Sodium,Porcine 5,000 Unit/Ml Vial) 5,000 unit SUBCUT Q8H [facility] Last Admin: 08/28/21 07:46 Dose: 5,000 unit Documented by: WANDER Hydromorphone HCl (Hydromorphone Hcl 1 Mg/Ml Syringe) 0.5 mg IVPUSH Q4H PRN; Protocol PRN Reason: Pain, Severe (Pain Scale 7-10) Insulin Human Lispro (Insulin Lispro 100 Unit/Ml 3 Ml Vial) 0 unit SUBCUT QIDACHS [facility]; Protocol Last Admin: 08/28/21 13:42 Dose: Not Given Documented by: DERRICK Non-Admin Reason: No Insulin Coverage Meclizine HCl (Meclizine Hcl 25 Mg Tablet) 25 mg PO Q8H PRN PRN Reason: dizziness Last Admin: 08/28/21 07:53 Dose: 25 mg Documented by: WANDER Melatonin (Melatonin 3 Mg Tablet) 6 mg PO BEDTIME PRN PRN Reason: Insomnia Non-Formulary Medication (Budesonide [Pulmicort]) 0.25 mg INHALE BID [facility] Pharmacy Consult (Consult Rx Perform Med Rec) 1 each MISCELLANE ONCE PRN PRN Reason: Consult order Senna (Sennosides 8.6 Mg Tablet) 17.2 mg PO BEDTIME PRN PRN Reason: Constipation Sodium Chloride (0.9 % Sodium Chloride Flush 3 Ml Syringe) 3 ml IVFLUSH QSHIFT [facility] Last Admin: 08/28/21 07:46 Dose: 3 ml Documented by: WANDER Labs CBC & Chem 7: 08/28/21 06:24 08/28/21 06:24 Labs: Laboratory Results - last 24 hr 08/27/21 08/27/21 08/27/21 17:20 17:20 17:35 MCV 88.8 MCH 29.1 MCHC 32.8 RDW 12.9 Plt Count 396 MPV 9.0 L Immature Gran % (Auto) 0.2 Neut % (Auto) 79.4 H Lymph % (Auto) 15.4 L Canyon % (Auto) 3.9 Eos % (Auto) 0.9 Baso % (Auto) 0.2 Lymph # (Auto) 1.3 Canyon # (Auto) 0.3 Eos # (Auto) 0.1 Baso # (Auto) 0.0 Abs Immat Gran (auto) 0.02 Absolute Neuts (auto) 6.8 Absolute Nucleated RBC 0.000 Nucleated RBC % (auto) 0.0 Anion Gap 15 Estim Creat Clear Calc 90.6 Estimated GFR > 60 Random Glucose 179 H Calcium 9.2 Magnesium 1.8 Total Bilirubin 0.4 Direct Bilirubin 0.2 AST 13 ALT 12 Alkaline Phosphatase 73 Total Protein 7.1 Albumin 4.1 Urine Color Urine Appearance Urine pH Ur Specific Cameron Urine Protein Urine Glucose (UA) Urine Ketones Urine Blood Urine Nitrite Ur Leukocyte Esterase Urine Opiates Screen Urine Fentanyl Screen Ur Barbiturates Screen Ur Phencyclidine Scrn Ur Amphetamines Screen U Benzodiazepines Scrn Urine Cocaine Screen U Marijuana (THC) Screen COVID-19 (MICHEL) Negative COVID-19 Clin Com See Note Hep Bs Antigen Hep Bs Antibody Hep B Core Total Ab Hepatitis C Ab (EIA) HIV 1&2 Ab/P24 Ag 4thGn 08/27/21 08/27/21 08/28/21 17:48 17:49 06:24 MCV 88.9 MCH 29.1 MCHC 32.7 RDW 13.0 Plt Count 395 MPV 9.2 L Immature Gran % (Auto) 1.0 H Neut % (Auto) 79.1 H Lymph % (Auto) 14.5 L Canyon % (Auto) 4.6 Eos % (Auto) 0.6 Baso % (Auto) 0.2 Lymph # (Auto) 1.6 Canyon # (Auto) 0.5 Eos # (Auto) 0.1 Baso # (Auto) 0.0 Abs Immat Gran (auto) 0.11 H Absolute Neuts (auto) 8.4 H Absolute Nucleated RBC 0.000 Nucleated RBC % (auto) 0.0 Anion Gap Estim Creat Clear Calc Estimated GFR Random Glucose Calcium Magnesium Total Bilirubin Direct Bilirubin AST ALT Alkaline Phosphatase Total Protein Albumin Urine Color STRAW Urine Appearance CLEAR Urine pH 8.0 Ur Specific Cameron 1.015 Urine Protein NEG Urine Glucose (UA) NEG Urine Ketones NEG Urine Blood NEG Urine Nitrite NEG Ur Leukocyte Esterase NEG Urine Opiates Screen Not Detected Urine Fentanyl Screen Not Detected Ur Barbiturates Screen Not Detected Ur Phencyclidine Scrn Not Detected Ur Amphetamines Screen Not Detected U Benzodiazepines Scrn Not Detected Urine Cocaine Screen POSITIVE H U Marijuana (THC) Screen Not Detected COVID-19 (MICHEL) COVID-19 Clin Com Hep Bs Antigen Hep Bs Antibody Hep B Core Total Ab Hepatitis C Ab (EIA) HIV 1&2 Ab/P24 Ag 4thGn 08/28/21 08/28/21 08/28/21 06:24 06:24 Unknown MCV MCH MCHC RDW Plt Count MPV Immature Gran % (Auto) Neut % (Auto) Lymph % (Auto) Canyon % (Auto) Eos % (Auto) Baso % (Auto) Lymph # (Auto) Canyon # (Auto) Eos # (Auto) Baso # (Auto) Abs Immat Gran (auto) Absolute Neuts (auto) Absolute Nucleated RBC Nucleated RBC % (auto) Anion Gap 13 Estim Creat Clear Calc 89.4 Estimated GFR > 60 Random Glucose 141 H Calcium 9.0 Magnesium 2.0 Total Bilirubin Direct Bilirubin AST ALT Alkaline Phosphatase Total Protein Albumin Urine Color Urine Appearance Urine pH Ur Specific Cameron Urine Protein Urine Glucose (UA) Urine Ketones Urine Blood Urine Nitrite Ur Leukocyte Esterase Urine Opiates Screen Urine Fentanyl Screen Ur Barbiturates Screen Ur Phencyclidine Scrn Ur Amphetamines Screen U Benzodiazepines Scrn Urine Cocaine Screen U Marijuana (THC) Screen COVID-19 (MICHEL) COVID-19 Clin Com Hep Bs Antigen Negative Hep Bs Antibody NONREACTIVE Hep B Core Total Ab Nonreactive Hepatitis C Ab (EIA) Nonreactive HIV 1&2 Ab/P24 Ag 4thGn Nonreactive ITS Impressions Head CT 08/27/21 18:34 IMPRESSION: No acute intracranial hemorrhage or mass effect. Head/Neck CTA 08/27/21 22:20 IMPRESSION: 1. No acute vascular abnormality. No large vessel occlusion or flow-limiting stenosis. 2. No acute intracranial finding. Brain MRI 08/28/21 13:14 IMPRESSION: Motion degraded exam. Small focus of acute infarction the left lateral medulla compatible with posterior inferior cerebellar artery territory ischemia. Background changes of moderate chronic microangiopathy. Chest X-Ray 08/28/21 13:34 IMPRESSION: Enlarged cardiac silhouette. This may be increased from prior chest x-ray. Bilateral subsegmental atelectasis. No evidence of pneumonia. 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 ASA + statin. # cocaine abuse - CARE Team consult. counseled on adverse vascular effects of cocaine including CVA. HBV/HCV/HIV screen negative. # VTE ppx - LMWH # dispo - STR recommended Quality Stroke Does the patient have a stroke diagnosis?: No VTE Prior VTE?: No VTE Risk Level:: Medical - moderate - high VTE Device Contraindication: Treatment Not Indicated VTE Drug Contraindication: N/A - Med Ordered
--- NOTE | 2021-08-28 13:57 | PC.NURSE ---
pt a&ox3, vss - bp remains elevated, p on 2L O2, at bedside, drinking thickened liquids, cont'd thickened cough.
--- NOTE | 2021-08-28 14:54 | MHC.STROKE ---
Addendum entered by Donna Sherman RN 08/30/21 12:36: I DISCUSSED DYSPHAGIA WORSENING WITH DR PORTER. HE DID MENTION THAT SHE MAY NOT BE ABLE TO SWALLOW ADEQUATELY FOR ANOTHER WEEK AND IT MAY EVEN TAKE LONGER UNTIL SHE SEES IMPROVEMENT. IT MAY BE LONG A YEAR BEFORE HER BALANCE IS BETTER WELL. WE ARE STRESSING ASPIRATION PRECAUTIONS, SEE THE SPEECH NOTE, SHE IS NPO, SHE MAY NEED ADDITIONAL NUTRITIONAL SUPPORT. I WILL ALSO NOTIFY THE THERMAL CUTTER HELPER. I MET WITH THE PATIENT'S DAUGHTER AND SON TODAY AND REVIEWED THE PATIENT'S DIAGNOSIS AND LOCATION OF THE STROKE. I EXPLAINED THE PROGNOSIS WILL BE SLOW, I ANSWERED THEIR QUESTIONS AND I WILL CONTINUE TO FOLLOW HER. Addendum entered by Donna Sherman RN 08/28/21 15:48: SEEM BY SPEECH FOR SOME DELAY IN SWALLOWING, SEE HER RECOMMENDATIONS. THE ASPIRIN WAS NOT GIVEN, I SPOKE TO THE NURSE AND SHE WILL GET THE ASPIRIN ORDERED THAT CAN BE CRUSHED OR GET IT ORDERED NM. Original Note: 08/26/21 1633 EMS PRE-NOTIFIED FOR SOB, NO STROKE ALERT . ARRIVED AT 1641. OTHER THAN SOB, PATIENT C/O FEELING DIZZY. INITIAL NIHSS = 0, LAST KNOWN WELL FOR THIS EVENT08/26/21 AT 0630, SHE WENT BACK TO BED AND DISCOVERED SYMPTOMS AT 1300, THEREFORE OUT OF THE WINDOW FOR TPA-ALTEPLASE. I DID VERIFY THAT SHE PASSED THE SWALLOW SCREEN AT 1700. CTH AND CTA H/N DONE. SHE IS VERY HYPERTENSIVE, + FOR COCAINE ALSO. MRI DONE TODAY AND SHE IS + FOR ACUTE LEFT LATERAL MEDULLA INFARCT. DR. PORTER AND DR. OAKLEY NOTIFIED. SHE HAD A SWALLOW EVALUATION BY SPEECH AND SHE WILL REQUIRE A THICKENED DIET. MONITOR FOR ASPIRATION. KEEP HOB ELEVATED. I MET WITH THE PATIENT AND UTILIZED AN SWITCHBOARD CLERK. I REVIEWED HER DIAGNOSIS, THE PLAN OF CARE AND HER INDIVIDUAL RISK FACTORS. SHE ADMITS TO COCAINE USE, AND SAID I'M NOT GOING TO USE COCAINE AGAIN . I DID EXPLAIN WHAT COCAINE DOES TO THE BLOOD VESSELS. T2 FLAIR DOES REVEAL SIGNIFICANT MICROVASCULAR DISEASE. A CARE TEAM CONSULT HAS BEEN ENTERED. I ALSO REVIEWED THIS INFORMATION WITH HARRY. . SHE ALSO ADMITS TO SMOKING 1-2 CIGARETTES A WEEK, I ADVISED STOPPING COMPLETELY AND SHE DOES NOT WANT A PATCH AT THIS TIME. STROKE EDUCATION PROVIDED IN ROMANIAN AND ROMANIAN BOOKLET GIVEN. DR PORTER MENTIONED THAT SOME OF HER SYMPTOMS MAY WORSEN OVER THE NEXT FEW DAYS. HER OBESITY, HTN, DM, DRUG USE, SMOKING, ETC. WERE COVERED IN THE EDUCATION. A LIPID PANEL AND ECHO (NO BUBBLE NEEDED) WAS ADDED TO THE STROKE ORDERS. I WILL FOLLOW UP WITH HER TOMORROW.
[2021-08-28 15:06] LABS: Estimated Average Glucose 126 mg/dL; Hemoglobin A1C 148.7465 umol/L
[2021-08-28 15:20] LABS: Troponin-I High Sensitivity 11.4 ng/L (<3.5-17.0)
[2021-08-28] MEDS: Aspirin 81 MG TAB.CHEW PO (17:03)
[2021-08-28] MEDS: Enoxaparin Sodium 40 MG/0.4 ML SYRINGE SUBCUT (17:03)
--- NOTE | 2021-08-28 17:06 | PC.NURSE ---
pt a&o, color television console monitor intact, nsr 80s with pvcs, vss, pt medicated per order, poc obtained, call dumont within reach, will continue to monitor.
[2021-08-28 18:19] LABS: Glucose, Whole Blood 112 mg/dL (60-115)
[2021-08-28 18:19] LABS: Glucose, Whole Blood 131 mg/dL (60-115)
[2021-08-28 18:19] LABS: Glucose, Whole Blood 125 mg/dL (60-115)
[2021-08-28 18:38] LABS: Glucose, Whole Blood 133 mg/dL (60-115)
[2021-08-28 22:12] LABS: Glucose, Whole Blood 153 mg/dL (60-115)
[2021-08-28] MEDS: Insulin Lispro 100 UNIT/ML 3 ML VIAL SUBCUT (23:08)
[2021-08-28] MEDS: Atorvastatin Calcium 80 MG TABLET PO (23:08)
[2021-08-29] VITALS (13 sets, daily range): BP systolic 125–213; BP diastolic 75–142; PULSE 89–135; RESP 11–35; TEMP 37.1–37.5; O2SAT 74–100
--- NOTE | 2021-08-29 | ECG_ITS ---
Test Reason : CHEST PAIN Blood Pressure : / mmHG Vent. Rate : 082 BPM Atrial Rate : 082 BPM P-R Int : 116 ms QRS Dur : 084 ms QT Int : 380 ms P-R-T Axes : 050 004 102 degrees QTc Int : 443 ms Sinus rhythm with Premature atrial complexes Nonspecific ST and T wave abnormality Abnormal ECG When compared with ECG of 27-AUG-2021 17:10, Nonspecific T wave abnormality, worse in Anterolateral leads Referred By: Lukas Hackett Electronically Signed By:Pawel Tsang
[2021-08-29] MEDS: 0.9 % Sodium Chloride Flush 3 ML SYRINGE IVFLUSH ×3 (00:05→16:30)
[2021-08-29] MEDS: Labetalol HCL 100 MG/20 ML VIAL 10 MG IVPUSH (00:06)
--- NOTE | 2021-08-29 00:17 | PC.NURSE ---
UPON ARRIVAL TO ED OVERFLOW, PATIENT IS ALERT, ORIENTED, PERRLA, EOMI, HAS PHLEGMY VOICE, APPROPRIATE MENTATION, FOLLOWS COMMANDS, MOVES ALL EXTREMITIES, BUT HAS DYSMETRIA OF LEFT UPPER EXTREMITY AND HAS A LEFT-SIDED GAZE PREFERENCE, WELL SOME RESIDUAL DIZZINESS. MD NOTIFIED TO CURRENT STATUS. PATIENT ABLE TO PROTECT AIRWAY. PUREED DIET WITH NECTAR THICK LIQUIDS WELL TOLERATED. PATIENT DID HAVE ELEVATED BP AFTER 23:00, MD NOTIFIED, NEW ORDER FOR PRN LABETOLOL.
--- NOTE | 2021-08-29 01:03 | PC.NURSE ---
Addendum entered by Ghanshyam Cespedes RN 08/29/21 02:57: previous note written by this engineering writer...bp re-elevated 178/117...dr vazquez updated...labetolol previously d/c'd by ...per md richmond to notify md if sbp>200 and/or dbp> 120..current bp 189/114..asymptomatic..md ordered hctz po for am Original Note: CARE ASSUMED 23:15..AWAKE...ALERT..STATES DIZZYNESS IMPROVED FROM 24 HOURS AGO...REYES...STATES ONLY MILD DIZZYNESS...BP 203/140...RECHECKED 198/122..DR VAZQUEZ UPDATED...PRN LABETOLOL ORDERED/GIVEN....BP DECREASED TO 179/77...NSR OCASSIONAL PAC'S...RESTFUL..DOZING AT PRESENT
[2021-08-29] MEDS: HYDROmorphone HCl 1 MG/ML SYRINGE 0.5 MG IVPUSH (03:23)
[2021-08-29 07:40] LABS: Cholesterol 225 mg/dL; HDL Cholesterol 63 mg/dL; LDL Cholesterol Calculated 139 mg/dl; Triglycerides 117 mg/dL
--- NOTE | 2021-08-29 08:00 | CA_ITS ---
Transthoracic Echocardiogram Patient (Last, First, Middle): Ashleigh Keenan, Gender: Female Date of : 1960 Age: 61 Procedure Date: 08/29/2021 Procedure Type: Transthoracic Echocardiogram Location: ER Height: 154.94 cm Weight: 112.95 kg BSA: 2.07 m2 Heart Rate: bpm BP: 150 / 94 mmHg Account Manager B2B: VH/OT Referring MD: Lillian Kent MD Symptoms: posterior CVA< troponin eelevation Study Quality: Fair ECG Rhythm: Sinus with extra beats Conclusions: - Normal left ventricular size and systolic function. There is moderately increased left ventricular wall thickness. The visually estimated ejection fraction is between 55-60%. - Normal right ventricular cavity size and systolic function. Findings Left Ventricle Normal left ventricular size and systolic function. There is moderately increased left ventricular wall thickness. The visually estimated ejection fraction is between 55-60%. Abnormal diastolic function is noted. Spectral Doppler is indicative of an impaired relaxation filling pattern. E/E prime ratio is between 8 and 15 consistent with indeterminate filling pressures. Right Ventricle Normal right ventricular cavity size and systolic function. Atria The left atrium is mildly dilated. There is no evidence of interatrial shunt by contrast. Aortic Valve Normal aortic valve structure and function. There is no aortic valve stenosis. There is trace (trivial) aortic valve regurgitation. Mitral Valve Normal mitral valve structure and function. There is no mitral valve regurgitation. There is no mitral valve stenosis. Pulmonic Valve The pulmonic valve is likely normal. Tricuspid Valve Normal tricuspid valve structure. There is trace tricuspid valve regurgitation. Normal right atrial pressure. There is no evidence of pulmonary hypertension. Great Vessels There is mild dilatation of the ascending aorta measuring 3.40 cm. The visualized portions of the pulmonary artery and branches are normal. Venous The inferior vena cava is normal in size and collapses greater than 50% with inspiration. Pericardium/Pleural There is no evidence of pericardial effusion. Prior Study Comparison No prior study available for comparison. Measurements 2D Linear Measurements IVSd: 1.38 0.6-0.9/0.6-1.0 cm LVIDd: 4.71 3.9-5.3/4.2-5.9 cm LVIDd Index: 2.28 2.4-3.2/2.2-3.1 cm/m2 LVIDs: 3.34 2.0-3.6 cm LVPWd: 1.22 0.7-1.1 cm LA Diam: 4.10 2.7-3.8/3.0-4.0 cm LAIDs Index: 1.98 1.5-2.3 cm/m2 LV Mass: 297.58 67-162/88-224 g LV Mass Index: 143.76 43-95/49-115 g/m2 LVOT Diam: 2.10 3.0+(-)1.3 cm Mitral Valve MV Pk E: 0.81 MV PK A: 0.96 MV Decel Time: 223.00 E/A: 0.80 E'Lateral: 8.81 E'Medial: 6.31 E/E' Med: 12.90 E/E' Lat: 9.20 PHT: 65.00 MVA PHT: 3.38 Decel Cherry: 3.65 Aortic Valve AoV Pk Ruiz: 1.51 AoV Mn Ruiz: 1.06 AoV VTI: 0.28 AoV Pk Grad: 9.00 Aov Mn Grad: 5.00 KARINA Cont.VTI: 2.86 LVOT LVOT Pk Ruiz: 1.27 LVOT Mn Ruiz: 0.85 LVOT VTI: 0.23 LVOT Pk Grad: 6.00 LVOT Mn Grad: 3.00 LVOT Diam: 2.10 LVOT Area: 3.46 Diastolic Function MV Pk E: 0.81 MV Pk A: 0.96 E/A: 0.80 E'Medial: 6.31 E/E' Med: 12.90 E' Laterial: 8.81 E/E' Lat: 9.20 Tricuspid Valve TR Pk Ruiz: 1.55 TR Pk Grad: 10.00 RA Press: 3.00 RVSP: 15.00 Great Vessels Aorta Ao Asc: 3.40 2.1-3.4 cm Pulmonary Valve PV Pk Ruiz: 1.11 Peak PV Grad: 5.00 Updated in Other Vendor System with Status of Final Pawel Tsang MD electronically signed on 08/30/2021 2:43:41 PM with status of Final
[2021-08-29] MEDS: hydroCHLOROthiazide 25 MG TABLET PO (08:01)
[2021-08-29] MEDS: Aspirin 81 MG TAB.CHEW PO (08:02)
[2021-08-29 08:10] LABS: Glucose, Whole Blood 109 mg/dL (60-115)
[2021-08-29] MEDS: Budesonide 180 MCG AER.POW.BA 1 PUFF INHALE (09:35)
--- NOTE | 2021-08-29 10:54 | P.CDIC_ITS ---
CDI Concurrent Query Documentation Clarification: PHYSICIAN'S DOCUMENTATION REQUEST Date of Query: 08/29/21 1054 Patient Name: Ashleigh Keenan Admit Date: 08/27/21 Dear Doctor, A review of the medical record indicates additional documentation may be needed. Please review below and update the documentation accordingly. Clinical Indicators: Risk Factors/Clinical Indicators/Treatments BMI 47.2 5' 1 in height If possible, please provide an associated diagnosis related to the abnormal BMI, such as: For a BMI >= 40: * Overweight * Obesity * Due to excess calories * Drug induced * Due to other cause * Severe or Morbid Obesity * With alveolar hypoventilation * Without alveolar hypoventilation Or: * BMI is not significant * Other (please specify) * Unable to determine Use of terms such as suspected, likely, concern for, or probable (associated with a specific diagnosis that is being evaluated, monitored, or treated as if it exists) are acceptable and can be coded in the inpatient setting, when documented at the time of discharge. Thank you, Ashley Cabrera [facility], CDIS Extension: [phone] Please use your independent medical judgment in providing your response. THIS QUERY IS PART OF THE PERMANENT MEDICAL RECORD Provider Response: Other Other Diagnosis: Morbid obesity with alveolar hypoventilation
--- NOTE | 2021-08-29 10:54 | MHC.CDI.CONC ---
CDI Concurrent Query Documentation Clarification: PHYSICIAN'S DOCUMENTATION REQUEST Date of Query: 08/29/21 1054 Patient Name: Ashleigh Keenan Admit Date: 08/27/21 Dear Doctor, A review of the medical record indicates additional documentation may be needed. Please review below and update the documentation accordingly. Clinical Indicators: Risk Factors/Clinical Indicators/Treatments BMI 47.2 5' 1 in height If possible, please provide an associated diagnosis related to the abnormal BMI, such as: For a BMI >= 40: Overweight Obesity Due to excess calories Drug induced Due to other cause Severe or Morbid Obesity With alveolar hypoventilation Without alveolar hypoventilation Or: BMI is not significant Other (please specify) Unable to determine Use of terms such as suspected, likely, concern for, or probable (associated with a specific diagnosis that is being evaluated, monitored, or treated as if it exists) are acceptable and can be coded in the inpatient setting, when documented at the time of discharge. Thank you, Ashley Cabrera [facility], CDIS Extension: [phone] Please use your independent medical judgment in providing your response. THIS QUERY IS PART OF THE PERMANENT MEDICAL RECORD Provider Response: Other Other Diagnosis: Morbid obesity with alveolar hypoventilation
--- NOTE | 2021-08-29 11:03 | PC.NURSE ---
PT A&O WALLISIAN SPEAKING. DENIES PAIN. TOLERATING DIET WITH NECTAR THICK LIQUIDS. NO SIGN OF ASPIRATION. WORKED WITH PT AND OT. C/O WEAKNESS AND DIZZINESS WITH STANDING. LUNGS DIMINISHED. VOIDING WITHOUT DIFFICULTY. DECLINED OOB TO CHAIR.
[2021-08-29 13:11] LABS: Glucose, Whole Blood 113 mg/dL (60-115)
[2021-08-29] MEDS: Furosemide 20 MG/2 ML VIAL IVPUSH (14:05)
[2021-08-29] MEDS: hydrALAZINE HCl 20 MG/ML VIAL 10 MG IVPUSH (14:06)
[2021-08-29] MEDS: Morphine Sulfate 4 MG/ML CARTRIDGE IVPUSH ×2 (14:21→23:11)
--- NOTE | 2021-08-29 14:38 | MHC.SLORD ---
Speech Language Pathology Order Status: Attempted to see PT this p.m. Pt in the middle of procedure re: cardiac issue. Will re-attempt tomorrow.
[2021-08-29 15:08] LABS: B Type Natriuretic Peptide 217 pg/mL (<100); Troponin-I High Sensitivity 9.6 ng/L (<3.5-17.0)
--- NOTE | 2021-08-29 15:54 | PC.NURSE ---
AT APPROX 1400 PT C/O SEVERE HEADACHE. WITH DIFFICULTY BREATHING. DR MANCINI IN TO EVAL PT. BP WAS ELEVATED. (SEE VITAL SIGNS.) LUNGS FINE CRACKLES WET UPPER AIRWAY. PT GIVEN IV LASIX, IV HYDRALAZINE AND MORPHINE. REYES CATH PLACED. DRAINED 550. AT 1600 PT STILL C/O HEADACHE. .
--- NOTE | 2021-08-29 15:58 | MHC.CM.PN ---
Patient remains in ER overflow. Patient +CVA. Physical therapy and occupational therapy are recommending rehab. Acute rehab referrals made to facilities contracted with [facility]'s insurance: [facility] Both are following. Facility choice will have to be discussed with patient. Continue to monitor for d/c needs.
--- NOTE | 2021-08-29 16:11 | HO.PM.IMPN ---
Subjective Subjective Date of Service: 08/29/21 Interval History: episode of hypertension accompanied by shortness of breath this afternoon with pressures 220s over 120s. Responded to hydralazine, Lasix, morphine Review of Systems admits to chest pain Admit shortness of breath Denies nausea vomiting diarrhea Denies fever chills Physical Exam Vital Signs: Vital Signs: Last Vital Signs Temp 99.5 F 08/29/21 07:09 Pulse 120 H 08/29/21 14:35 Resp 18 08/29/21 09:35 BP 157/75 H 08/29/21 14:45 Pulse Ox 81 L 08/29/21 14:09 BMI result Body Mass Index 47.0 Const: Other: no acute distress Resp: Other: diminished bilaterally with faint crackles at both bases Cardio: Other: no S4; positive S1-S2; no S3 murmurs of gallops GI: Other: soft nontender nondistended with normoactive bowel sounds Extrem: Other: no edema Objective Data Active Medications Acetaminophen (Acetaminophen 325 Mg Tablet) 650 mg PO Q6H PRN PRN Reason: Pain, Mild (Pain Scale 1-3) Albuterol Sulfate (Albuterol Sulfate (0.083%) 2.5 Mg/3 Ml Vial.Neb) 2.5 mg INHALE Q4H PRN PRN Reason: wheezing Aspirin (Aspirin 81 Mg Tab.Chew) 81 mg PO DAILY [facility] Last Admin: 08/29/21 08:02 Dose: 81 mg Documented by: RODRIGUEZ Atorvastatin Calcium (Atorvastatin Calcium 80 Mg Tablet) 80 mg PO BEDTIME [facility] Last Admin: 08/28/21 23:08 Dose: 80 mg Documented by: MERLE Budesonide (Budesonide 180 Mcg Aer.Pow.Ba) 1 puff INHALE RBID [facility] Last Admin: 08/29/21 09:35 Dose: 1 puff Documented by: RUBA Dextrose (Dextrose 50 % 25 Gm/50 Ml Vial) 25 gm IVPUSH Q15M PRN; Protocol PRN Reason: per Hypoglycemia Standing Ord. Enoxaparin Sodium (Enoxaparin Sodium 40 Mg/0.4 Ml Syringe) 40 mg SUBCUT Q24H [facility] Last Admin: 08/28/21 17:03 Dose: 40 mg Documented by: DERRICK Fluticasone Propionate (Fluticasone Propionate Nasal 16 Gm [place]) 1 spray NOSTRIL-B DAILY [facility] Last Admin: 08/29/21 08:05 Dose: Not Given Documented by: RODRIGUEZ Non-Admin Reason: Med Not Available Glucose (Glucose Gel 15 Gm Gel..Gram.) 15 gm PO Q15M PRN; Protocol PRN Reason: per Hypoglycemia Standing Ord. Hydrochlorothiazide (Hydrochlorothiazide 25 Mg Tablet) 25 mg PO DAILY [facility]; Protocol Last Admin: 08/29/21 08:01 Dose: 25 mg Documented by: RODRIGUEZ Insulin Human Lispro (Insulin Lispro 100 Unit/Ml 3 Ml Vial) 0 unit SUBCUT QIDACHS [facility]; Protocol Last Admin: 08/29/21 13:49 Dose: Not Given Documented by: RODRIGUEZ Non-Admin Reason: No Insulin Coverage Meclizine HCl (Meclizine Hcl 25 Mg Tablet) 25 mg PO Q8H PRN PRN Reason: dizziness Last Admin: 08/28/21 07:53 Dose: 25 mg Documented by: WANDER Melatonin (Melatonin 3 Mg Tablet) 6 mg PO BEDTIME PRN PRN Reason: Insomnia Morphine Sulfate (Morphine Sulfate 4 Mg/Ml Cartridge) 4 mg IVPUSH ONCE PRN; Protocol PRN Reason: sob Last Admin: 08/29/21 14:21 Dose: 4 mg Documented by: RODRIGUEZ Pharmacy Consult (Consult Rx Perform Med Rec) 1 each MISCELLANE ONCE PRN PRN Reason: Consult order Senna (Sennosides 8.6 Mg Tablet) 17.2 mg PO BEDTIME PRN PRN Reason: Constipation Sodium Chloride (0.9 % Sodium Chloride Flush 3 Ml Syringe) 3 ml IVFLUSH QSHIFT [facility] Last Admin: 08/29/21 08:04 Dose: 3 ml Documented by: RODRIGUEZ Labs CBC & Chem 7: 08/28/21 06:24 08/28/21 06:24 Labs: Laboratory Results - last 24 hr 08/28/21 08/28/21 08/28/21 07:28 13:36 17:03 POC Glucose 131 H 125 H 112 B-Natriuretic Peptide Triglycerides Cholesterol LDL Cholesterol, Calc HDL Cholesterol 08/28/21 08/28/21 08/29/21 18:32 21:56 06:58 POC Glucose 133 H 153 H B-Natriuretic Peptide Triglycerides 117 Cholesterol 225 LDL Cholesterol, Calc 139 HDL Cholesterol 63 08/29/21 08/29/21 08/29/21 07:11 12:58 14:30 POC Glucose 109 113 B-Natriuretic Peptide 217 H Triglycerides Cholesterol LDL Cholesterol, Calc HDL Cholesterol Assessment and Plan (1) Cerebrovascular accident involving posterior circulation: Status: Acute (2) Cocaine abuse: Status: Acute (3) Hypertensive urgency: Status: Acute Plan 61yo with HTN, HLD, DM2 presenting with acute vertigo + nystagmus admitted for HTN urgency but 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 HTN w/?Acute systolic CHF -acceptable control - allow permissive hypertension up to 220/120 during acute phase of CVA, gradual reduction by resuming antihypertensives in stepwise fashion - good response to Lasix/hydralazine/morphine - troponin /BNP unremarkable 3.DM2 -acceptable control -correction-dose lispro LMWH Full Code will likely need 1-2 midnights going forward for stabilization of blood pressure and placement Quality Stroke Does the patient have a stroke diagnosis?: No VTE Prior VTE?: No VTE Risk Level:: Medical - moderate - high VTE Device Contraindication: Treatment Not Indicated VTE Drug Contraindication: N/A - Med Ordered
[2021-08-29] MEDS: Enoxaparin Sodium 40 MG/0.4 ML SYRINGE SUBCUT (16:29)
[2021-08-29 17:40] LABS: Glucose, Whole Blood 215 mg/dL (60-115)
[2021-08-29 19:48] LABS: Glucose, Whole Blood 241 mg/dL (60-115)
[2021-08-29] MEDS: Atorvastatin Calcium 80 MG TABLET PO (21:41)
[2021-08-29] MEDS: Insulin Lispro 100 UNIT/ML 3 ML VIAL SUBCUT (21:41)
[2021-08-29] MEDS: Furosemide 40 MG/4 ML VIAL IVPUSH (23:15)
[2021-08-30] VITALS (14 sets, daily range): BP systolic 93–200; BP diastolic 54–112; PULSE 78–142; RESP 12–22; TEMP 36.6–39.2; O2SAT 88–100
--- NOTE | 2021-08-30 | ECG_ITS ---
Test Reason : cp Blood Pressure : / mmHG Vent. Rate : 136 BPM Atrial Rate : 136 BPM P-R Int : 122 ms QRS Dur : 082 ms QT Int : 296 ms P-R-T Axes : 069 007 157 degrees QTc Int : 445 ms Sinus tachycardia with frequent Premature ventricular complexes ST & T wave abnormality, consider lateral ischemia Abnormal ECG When compared with ECG of 29-AUG-2021 15:03, Premature ventricular complexes are now Present Vent. rate has increased BY 54 BPM Nonspecific T wave abnormality no longer evident in Anterior leads Referred By: Sheron Correia Electronically Signed By:Pawel Tsang
--- NOTE | 2021-08-30 00:06 | PC.NURSE ---
Respratory distress, oxygen saturation 74% on 7 l oximask, rr35 , HR 135, BP 195/142, lungs congested crackles ,. Nonrebreather mask placed on pt, medicated with Morphine 4 mg Iv ,Lasix 40 mg IV, Cxray done : all orders from DR Chapa
[2021-08-30] MEDS: 0.9 % Sodium Chloride Flush 3 ML SYRINGE IVFLUSH ×4 (00:17→19:48)
--- NOTE | 2021-08-30 01:00 | MHC.PIE ---
P.CONGESTION,TACHYCARDIA I.PT REMAINS CONGESTED.HR 125-135,SINUS TACH,BP 164/92. NOTIFIED AND UPDATED REGARDING PREVIOUS CXR TAKEN AT 2300 AND RECTAL TEMP OF 102.6.ORDERS FOR STAT BLOOD CULTURES,LACTIC AND START IV ZOSYN.ALSO TO GIVE PO TYLENOL. E,CONT TO ASSESS
--- NOTE | 2021-08-30 01:22 | PM.EVENT ---
Event Note Date of Service: 08/30/21 Event Note: Patient developed significant hypoxia, tachycardia, and was febrile overnight. Chest x-ray showed possible infiltrate, versus volume overload, patient given Lasix x2 with significant urinary output, as well as started on IV antibiotics, blood cultures and lactic acid were drawn. Troponin slightly elevated but not significantly, BNP improved. Likely sepsis secondary to pneumonia Tachycardia appears to be sinus tachycardia secondary to fever Tylenol
[2021-08-30] MEDS: Acetaminophen 325 MG TABLET 650 MG PO (01:48)
[2021-08-30] MEDS: Piperacillin Sodium/Tazobactam 3.375 GM in 0.9 % Sodium Chloride 50 ML IV ×4 (01:53→19:47)
[2021-08-30 02:06] LABS: Lactic Acid 0.8 mmol/L (0.5-2.0)
--- NOTE | 2021-08-30 02:40 | MHC.PIE ---
P.REMAINS TACHY,DESAT I.PT REMAINS WITH ESHA COUGH,TACHYCARDIC,BP 200/112.PLACED ON HI HERLINDA 55L/95% BY RESP.DR SHANE NOTIFIED AND UP TO SEE PATIENT.ORDERS FOR STAT EKG,TROP,BNP AND TO GIVE LASIX 40 IV. E.LABS DRAWN,EKG DONE AND SENT TO .STAT LASIX GIVEN
[2021-08-30] MEDS: Furosemide 40 MG/4 ML VIAL IVPUSH (03:06)
[2021-08-30 03:21] LABS: Troponin-I High Sensitivity 21.8 ng/L (<3.5-17.0)
[2021-08-30 03:30] LABS: B Type Natriuretic Peptide 196 pg/mL (<100)
[2021-08-30] MEDS: Acetaminophen Supp 650 MG SUPP.RECT PR (03:46)
--- NOTE | 2021-08-30 05:00 | PC.NURSE ---
PT RESTING QUIETLY.PLACED ON 100% NRB BY RESP TO MAINT SATS PT MOUTH BREATHES.SATS 98%.REMAINS TACHYCARDIC BUT HR IMPROVED TO 110'S,BP REMAINS ELEVATED 184/110.OUTPUT FROM LASIX 300CC.TEMP DOWN TO 100.[address] SHANE UPDATED ON ALL.NEW ORDER FOR REPEAT TROPONIN STAT.
[2021-08-30 06:53] LABS: Basophils Percent Auto 0.1 % (0-2); Hematocrit 46.8 % (37.0-47.0); Hemoglobin 14.7 g/dl (12.0-16.0); Imm Gran Abs Auto 0.07 X10*3/uL (0.00-0.03); Imm Gran Pct Auto 0.4 % (0.0-0.4); Lymphocytes Absolute Auto 0.3 X10*3/uL (1.2-4.9); Lymphocytes Percent Auto 1.7 % (20-40); MANUAL DIFF FLAG SCAN; Mean Corpuscular HGB Conc 31.4 g/dl (31.0-35.0); Mean Corpuscular Hemoglobin 28.9 pg (27.0-33.0); Mean Corpuscular Volume 91.9 fL (80.0-98.0); Mean Platelet Volume 9.3 fL (9.4-12.3); Monocytes Absolute Auto 0.8 X10*3/uL (0.1-1.2); Monocytes Percent Auto 4.6 % (2-11); Neutrophils Absolute Auto 16.4 x10*3/uL (2.0-8.3); Neutrophils Percent Auto 93.2 % (45-73); Platelet Count 355 X10*3/uL (160-400); Red Blood Count 5.09 X10*6/uL (4.20-5.50); Red Cell Distribution Width 12.8 % (11.0-16.0); SCAN SMEAR FLAG 1; White Blood Count 17.6 X10*3/uL (4.8-10.8)
[2021-08-30 06:57] LABS: B Type Natriuretic Peptide 263 pg/mL (<100)
[2021-08-30 07:01] LABS: Alanine Aminotransferase 174 U/L (0-31); Alkaline Phosphatase 128 U/L (39-117); Anion Gap 14 (12-20); Aspartate Amino Transferase 118 U/L (5-31); Bilirubin Total 0.7 mg/dL (0.0-1.0); Blood Urea Nitrogen 21 mg/dL (9-16); Calcium 9.4 mg/dL (8.4-10.2); Carbon Dioxide 38 mmol/L (22-29); Chloride 94 mmol/L (96-108); Creatinine Clr Calc Pharmacy 55.3; Estimated Glomerular Filt Rate 43; Glucose Fasting 164 mg/dL (60-99); Potassium 3.7 mmol/L (3.3-5.1); Sodium 142 mmol/L (135-145); Total Protein 7.1 g/dL (6.5-8.0)
[2021-08-30 07:12] LABS: SLIDE REVIEW VERIFIED
[2021-08-30] MEDS: Budesonide 180 MCG AER.POW.BA 1 PUFF INHALE (07:15)
[2021-08-30 07:19] LABS: Troponin-I High Sensitivity 95.8 ng/L (<3.5-17.0)
[2021-08-30 07:37] LABS: Glucose, Whole Blood 167 mg/dL (60-115)
[2021-08-30] MEDS: Fluticasone Propionate Nasal 16 GM SPRAY 1 SPRAY NOSTRIL-B (08:27)
[2021-08-30 11:01] LABS: ABG Base Excess 12.5 mmol/L; ABG HCO3 42 mmol/L (22-26); ABG pCO2 80 mmHg (32-45); ABG pH 7.33 (7.35-7.45); ABG pO2 56 mmHg (83-108)
--- NOTE | 2021-08-30 11:12 | PM.CCN ---
Critical Care Event Note Summary Date of Service: 08/30/21 Code activated: No Narrative: On my evaluation, lethargic, but arousable to voice and follows commands. Blood pressure stable. Normoxemia on 4 L via nasal cannula. Nasotracheal suctioning performed with suctioning of moderate amount of secretions and gastric fluid. Patient with vigorous cough and able to protect airway at this time. Suggest rechecking toxicology screen. Consider discontinuation of opioids. Please notify for re-evaluation, if patient's condition changes. Critical Care Time (minutes): 0
[2021-08-30 11:14] LABS: Glucose, Whole Blood 169 mg/dL (60-115)
--- NOTE | 2021-08-30 11:26 | MHC.CM.PN ---
Per ROUNDS discussion, Patient is not yet medically cleared for dc (IV Zosyn, 100% NRB to maintain sats, Tachy, elevated BP); PT is recommending STR and CM will continue to follow.
[2021-08-30 11:55] LABS: ABG Refer to POC result
--- NOTE | 2021-08-30 12:05 | MHC.SL.SWA ---
Speech Pathologist Impression: Oropharyngeal dysphagia Risk of Aspiration Due to: Lethargy Dysphasia Diet Status: Patient displayed OVERT S/S OF ASPIRATION. Recommend DOWNGRADE to NPO. Notified MD, RN, RD via [facility] Message. Liquid Consistency and Strategies for Safe Swallow: Liquid Intake Recommendation: NPO Solid Food Consistency: Dietary Recommendations: NPO Oral Medication Intake: NPO Please contact the pharmacy regarding appropriate crushable or liquid drug formulations that are available whenever modified delivery is recommended. Supervision While Eating and Drinking for Safe Swallow: PO with OWNER PROFESSIONAL ENGINEER Swallowing Recommended Treatments: Compens. Strategy Educat. Recommendation for Speech: Inpatient Speech Therapy Plan to re-evaluate tomorrow. Machinery Mechanic Clinican/Clinical Fellow: No Supervisory Statement: I have reviewed and agree with the student/clinical fellow's documentation: N/A Speech Language Pathologist: Zelda De Santiago M.A., [facility]-OWNER PROFESSIONAL ENGINEER
[2021-08-30] MEDS: Insulin Lispro 100 UNIT/ML 3 ML VIAL SUBCUT (12:22)
[2021-08-30 12:55] LABS: ABG pH 7.33 (7.35-7.45)
[2021-08-30 12:56] LABS: ABG Base Excess 12.5 mmol/L; ABG HCO3 42 mmol/L (22-26); ABG pCO2 80 mmHg (32-45); ABG pO2 56 mmHg (83-108)
[2021-08-30 13:00] LABS: ABG Base Excess 12.5 mmol/L; ABG HCO3 42 mmol/L (22-26); ABG pCO2 80 mmHg (32-45); ABG pH 7.33 (7.35-7.45); ABG pO2 56 mmHg (83-108)
--- NOTE | 2021-08-30 15:27 | HO.PM.IMPN ---
Subjective Subjective Date of Service: 08/30/21 Interval History: Overnight events noted. Fever spike to 102 started on Zosyn. This a.m.. Of unresponsiveness question aspiration. Seen by planisher deep suction with good results. ABGs done demonstrate acute on chronic hypercapnia. Seen by speech; failed swallow. Will need PEG tube placement Review of Systems Unable secondary to unresponsiveness Physical Exam Vital Signs: Vital Signs: Last Vital Signs Temp 98.7 F 08/30/21 11:46 Pulse 82 08/30/21 11:46 Resp 16 08/30/21 11:46 BP 96/63 08/30/21 11:46 Pulse Ox 92 08/30/21 11:46 BMI result Body Mass Index 47.0 Const: Other: Somnolent but arousable Resp: Other: diminished bilaterally with scattered coarse rhonchi throughout Cardio: Other: no S4; positive S1-S2; no S3 murmurs of gallops GI: Other: soft nontender nondistended with normoactive bowel sounds Extrem: Other: no edema Objective Data Active Medications Acetaminophen (Acetaminophen 325 Mg Tablet) 650 mg PO Q6H PRN PRN Reason: Pain, Mild (Pain Scale 1-3) Last Admin: 08/30/21 01:48 Dose: 650 mg Documented by: SOMMER Albuterol Sulfate (Albuterol Sulfate (0.083%) 2.5 Mg/3 Ml Vial.Neb) 2.5 mg INHALE Q4H PRN PRN Reason: wheezing Aspirin (Aspirin 81 Mg Tab.Chew) 81 mg PO DAILY [facility] Last Admin: 08/30/21 10:12 Dose: Not Given Documented by: YNES Non-Admin Reason: Patient Condition Contraindication Atorvastatin Calcium (Atorvastatin Calcium 80 Mg Tablet) 80 mg PO BEDTIME [facility] Last Admin: 08/29/21 21:41 Dose: 80 mg Documented by: MERLE Budesonide (Budesonide 180 Mcg Aer.Pow.Ba) 1 puff INHALE RBID [facility] Last Admin: 08/30/21 07:15 Dose: 1 puff Documented by: MARGARET Dextrose (Dextrose 50 % 25 Gm/50 Ml Vial) 25 gm IVPUSH Q15M PRN; Protocol PRN Reason: per Hypoglycemia Standing Ord. Enoxaparin Sodium (Enoxaparin Sodium 40 Mg/0.4 Ml Syringe) 40 mg SUBCUT Q24H [facility] Last Admin: 08/29/21 16:29 Dose: 40 mg Documented by: HEIKE Fluticasone Propionate (Fluticasone Propionate Nasal 16 Gm [place]) 1 spray NOSTRIL-B DAILY [facility] Last Admin: 08/30/21 08:27 Dose: 1 spray Documented by: YNES Glucose (Glucose Gel 15 Gm Gel..Gram.) 15 gm PO Q15M PRN; Protocol PRN Reason: per Hypoglycemia Standing Ord. Hydrochlorothiazide (Hydrochlorothiazide 25 Mg Tablet) 25 mg PO DAILY [facility]; Protocol Last Admin: 08/30/21 10:12 Dose: Not Given Documented by: YNES Non-Admin Reason: Patient Condition Contraindication Piperacillin Sod/Tazobactam (Sod 3.375 gm/ Sodium Chloride) 50 mls @ 100 mls/hr IV Q6H [facility] Last Infusion: 08/30/21 13:12 Dose: 0 mls/hr Documented by: ADELA Insulin Human Lispro (Insulin Lispro 100 Unit/Ml 3 Ml Vial) 0 unit SUBCUT QIDACHS [facility]; Protocol Last Admin: 08/30/21 12:22 Dose: 2 unit Documented by: YNES Meclizine HCl (Meclizine Hcl 25 Mg Tablet) 25 mg PO Q8H PRN PRN Reason: dizziness Last Admin: 08/28/21 07:53 Dose: 25 mg Documented by: WANDER Melatonin (Melatonin 3 Mg Tablet) 6 mg PO BEDTIME PRN PRN Reason: Insomnia Morphine Sulfate (Morphine Sulfate 4 Mg/Ml Cartridge) 4 mg IVPUSH ONCE PRN; Protocol PRN Reason: sob Last Admin: 08/29/21 23:11 Dose: 4 mg Documented by: MERLE Oxycodone HCl (Oxycodone Hcl Immed Release 5 Mg Tablet) 10 mg PO Q4H PRN PRN Reason: Pain, Moderate (Pain Scale 4-6 Pharmacy Consult (Consult Rx Perform Med Rec) 1 each MISCELLANE ONCE PRN PRN Reason: Consult order Senna (Sennosides 8.6 Mg Tablet) 17.2 mg PO BEDTIME PRN PRN Reason: Constipation Sodium Chloride (0.9 % Sodium Chloride Flush 3 Ml Syringe) 3 ml IVFLUSH QSHIFT [facility] Last Admin: 08/30/21 08:26 Dose: 3 ml Documented by: YNES Labs CBC & Chem 7: 08/30/21 05:58 08/30/21 05:58 Labs: Laboratory Results - last 24 hr 08/29/21 08/29/21 08/30/21 17:33 19:15 01:45 MCV MCH MCHC RDW Plt Count MPV Immature Gran % (Auto) Neut % (Auto) Lymph % (Auto) Tillman % (Auto) Eos % (Auto) Baso % (Auto) Lymph # (Auto) Tillman # (Auto) Eos # (Auto) Baso # (Auto) Abs Immat Gran (auto) Absolute Neuts (auto) Absolute Nucleated RBC Nucleated RBC % (auto) Smear Tech's Comments O2 Saturation ABG pH at Pt Temp ABG pCO2 at Pt Temp ABG pO2 at Pt Temp ABG HCO3 ABG Base Excess (Actual) Anion Gap Estim Creat Clear Calc Estimated GFR POC Glucose 215 H 241 H Fasting Glucose Lactic Acid 0.8 Calcium Total Bilirubin AST ALT Alkaline Phosphatase B-Natriuretic Peptide Total Protein Albumin 08/30/21 08/30/21 08/30/21 02:53 05:58 05:58 MCV 91.9 MCH 28.9 MCHC 31.4 RDW 12.8 Plt Count 355 MPV 9.3 L Immature Gran % (Auto) 0.4 Neut % (Auto) 93.2 H Lymph % (Auto) 1.7 L Tillman % (Auto) 4.6 Eos % (Auto) 0.0 Baso % (Auto) 0.1 Lymph # (Auto) 0.3 L Tillman # (Auto) 0.8 Eos # (Auto) 0.0 Baso # (Auto) 0.0 Abs Immat Gran (auto) 0.07 H Absolute Neuts (auto) 16.4 H Absolute Nucleated RBC 0.000 Nucleated RBC % (auto) 0.0 Smear Tech's Comments VERIFIED O2 Saturation ABG pH at Pt Temp ABG pCO2 at Pt Temp ABG pO2 at Pt Temp ABG HCO3 ABG Base Excess (Actual) Anion Gap 14 Estim Creat Clear Calc 55.3 Estimated GFR 43 POC Glucose Fasting Glucose 164 H Lactic Acid Calcium 9.4 Total Bilirubin 0.7 AST 118 H ALT 174 H Alkaline Phosphatase 128 H D B-Natriuretic Peptide 196 H Total Protein 7.1 Albumin 4.0 08/30/21 08/30/21 08/30/21 05:58 07:08 10:54 MCV MCH MCHC RDW Plt Count MPV Immature Gran % (Auto) Neut % (Auto) Lymph % (Auto) Tillman % (Auto) Eos % (Auto) Baso % (Auto) Lymph # (Auto) Tillman # (Auto) Eos # (Auto) Baso # (Auto) Abs Immat Gran (auto) Absolute Neuts (auto) Absolute Nucleated RBC Nucleated RBC % (auto) Smear Tech's Comments O2 Saturation 83.0 ABG pH at Pt Temp 7.33 L ABG pCO2 at Pt Temp 80 H* ABG pO2 at Pt Temp 56 L ABG HCO3 42 H ABG Base Excess (Actual) 12.5 Anion Gap Estim Creat Clear Calc Estimated GFR POC Glucose 167 H Fasting Glucose Lactic Acid Calcium Total Bilirubin AST ALT Alkaline Phosphatase B-Natriuretic Peptide 263 H Total Protein Albumin 08/30/21 08/30/21 08/30/21 10:54 10:54 11:05 MCV MCH MCHC RDW Plt Count MPV Immature Gran % (Auto) Neut % (Auto) Lymph % (Auto) Tillman % (Auto) Eos % (Auto) Baso % (Auto) Lymph # (Auto) Tillman # (Auto) Eos # (Auto) Baso # (Auto) Abs Immat Gran (auto) Absolute Neuts (auto) Absolute Nucleated RBC Nucleated RBC % (auto) Smear Tech's Comments O2 Saturation 83.0 83.0 ABG pH at Pt Temp 7.33 L 7.33 L ABG pCO2 at Pt Temp 80 H* 80 H* ABG pO2 at Pt Temp 56 L 56 L ABG HCO3 42 H 42 H ABG Base Excess (Actual) 12.5 12.5 Anion Gap Estim Creat Clear Calc Estimated GFR POC Glucose 169 H Fasting Glucose Lactic Acid Calcium Total Bilirubin AST ALT Alkaline Phosphatase B-Natriuretic Peptide Total Protein Albumin Assessment and Plan (1) Cerebrovascular accident involving posterior circulation: Status: Acute (2) Essential hypertension: Status: Acute (3) Diabetes mellitus: Status: Acute Plan 61yo with HTN, HLD, DM2 presenting with acute vertigo + nystagmus admitted for HTN urgency but 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 Episode of unresponsiveness and choking overnight: Question aspiration. 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 HTN w/?Acute systolic CHF -acceptable control - good response to Lasix/hydralazine/morphine - troponin /BNP unremarkable 3.DM2 -acceptable control -correction-dose lispro LMWH Full Code will likely need 1-2 midnights going forward for stabilization of blood pressure and placement Quality Stroke Does the patient have a stroke diagnosis?: No VTE Prior VTE?: No VTE Risk Level:: Medical - moderate - high VTE Device Contraindication: Treatment Not Indicated VTE Drug Contraindication: N/A - Med Ordered
[2021-08-30 16:06] LABS: Glucose, Whole Blood 169 mg/dL (60-115)
--- NOTE | 2021-08-30 16:55 | PM.EVENT ---
Event Note Date of Service: 08/30/21 Event Note: GI Consult dictated Dysphagia s/p CVA Currently quite somnolent. Discussed EGD/PEG with daughter Haley She will discuss with family. It will be tentatively scheduled for tomorrow, pending consent and clinical course. The procedure could also be technically difficult due to body habitus.
--- NOTE | 2021-08-30 18:58 | MHC.RECOVSUP ---
Attempt to interview patient but patient was sleeping and did not wake up.
[2021-08-30 19:12] LABS: Amphetamine Screen Urine Not Detected (Not Detect); Barbiturates, Urine Not Detected (Not Detect); Benzodiazepines Screen Urine Not Detected (Not Detect); Cannabinoid Screen Urine Not Detected (Not Detect); Cocaine Screen Urine POSITIVE (Not Detect); Fentanyl, urine Not Detected (Not Detect); Opiate Screen Urine POSITIVE (Not Detect); Phencyclidine Screen Urine Not Detected (Not Detect)
--- NOTE | 2021-08-30 19:20 | PC.NURSE ---
Patient condition was contraindicated for PO meds. Pt was very lethargic and disoriented throughout the morning. Her family reported that she was slightly less disoriented when they arrived. Lovenox was not given per Dr. Asher due to possible PEG tube placement tomorrow.
[2021-08-30 20:18] LABS: Glucose, Whole Blood 121 mg/dL (60-115)
--- NOTE | 2021-08-30 22:18 | MHC.SHP ---
Pre-Procedural Eval Section A Date of Service: 08/30/21 The patient is an INPATIENT: Yes Changes since office visit: No Cold of Flu in the past 2 weeks, No New Medical Problems, No Changes in Medication and No Patient answered all questions The History & Physical has been completed within 30 days and I have reviewed it.: Yes Section B Chief Complaint: HTN urgency Allergies: Allergies Allergy/AdvReac Type Severity Reaction Status Date / Time No Known Allergies Allergy Verified 08/07/21 16:33 Plan I have reviewed the history and physical and performed a pertinent physical examination on my patient. No changes have occurred unless specified.
--- NOTE | 2021-08-31 | ECG_ITS ---
Test Reason : elevated trop Blood Pressure : / mmHG Vent. Rate : 114 BPM Atrial Rate : 114 BPM P-R Int : 120 ms QRS Dur : 082 ms QT Int : 318 ms P-R-T Axes : 064 000 210 degrees QTc Int : 438 ms Sinus tachycardia with Premature atrial complexes ST & T wave abnormality, consider lateral ischemia Abnormal ECG When compared with ECG of 30-AUG-2021 02:54, Premature ventricular complexes are no longer Present Premature atrial complexes are now Present Referred By: Lukas Hackett Electronically Signed By:VNO MARTINEZ MD
[2021-08-31] MEDS: Piperacillin Sodium/Tazobactam 3.375 GM in 0.9 % Sodium Chloride 50 ML IV ×4 (01:24→20:45)
--- NOTE | 2021-08-31 03:18 | CONS_ITS ---
DATE OF SERVICE: 08/30/2021 REFERRING PHYSICIAN: Lukas Hackett DO REASON FOR CONSULTATION: Dysphagia status post CVA. HISTORY OF PRESENT ILLNESS: The patient is a 61-year-old female who was admitted to the hospital on August 27 with dizziness and spinning sensation. She was found to have a posterior CVA and failed swallowing evaluation today with a question of aspiration. EGD with PEG tube placement has been requested. The patient is somnolent and provides no history. Her daughter is present, who indicates she has had no problems with swallowing prior to this acute event. PAST MEDICAL HISTORY: 1. Hypertension. 2. Hyperlipidemia. 3. Substance abuse. 4. Diabetes. 5. CVA as above. 6. Asthma. CURRENT MEDICATIONS: Her current medication list is reviewed in the chart. ALLERGIES: THERE ARE NONE REPORTED. FAMILY HISTORY: This is reviewed in the electronic medical record. SOCIAL HISTORY: There is history of substance abuse and tobacco use. PAST SURGICAL HISTORY: Includes cholecystectomy, tubal ligation, and an unnamed ORIF procedure. REVIEW OF SYSTEMS: This is not obtainable. PHYSICAL EXAMINATION: GENERAL: Shows an elderly female appearing older than her stated age. VITAL SIGNS: Reviewed in electronic medical record and are stable. T-max was 102.6 at 1:30 a.m. SKIN: Anicteric. HEENT: Shows no scleral icterus. NECK: Shows no lymphadenopathy. LUNGS: Clear. HEART: Shows a regular rate and rhythm. S1, S2. No murmur. ABDOMEN: Obese, soft, and does not appear to exhibit any tenderness. She does open her eyes to the examiner, but does not speak. EXTREMITIES: Without edema. LABORATORY DATA: Shows a white blood cell count of 17.6. Chemistries are reviewed. She does have an elevated troponin. IMPRESSION: Dysphagia, status post cerebrovascular accident. I have discussed upper endoscopy and PEG tube placement with the patient's daughter, Haley. She understands risks and benefits and will discuss this with the family. This can be arranged for tomorrow tentatively if they agree to proceed pending her clinical course as she is quite somnolent today. The procedure may be technically difficult due to her overall body habitus. Also, the daughter was unsure if she had any type of gastric surgery. Her abdominal exam does show an open cholecystectomy scar in the right upper quadrant, but no midline incision. Thanks for asking me to see her. I will follow her in the hospital with you. MD JANINE Fraga/STEVE / [phone]
[2021-08-31 03:22] VITALS: BP 125/75; PULSE 119; RESP 20; TEMP 37.3; O2SAT 97
[2021-08-31 06:48] LABS: MANUAL DIFF FLAG NO
[2021-08-31 06:56] LABS: Basophils Percent Auto 0.1 % (0-2); Eosinophils Percent Auto 0.1 % (0-4); Hematocrit 44.4 % (37.0-47.0); Hemoglobin 13.8 g/dl (12.0-16.0); Imm Gran Abs Auto 0.12 X10*3/uL (0.00-0.03); Imm Gran Pct Auto 0.6 % (0.0-0.4); Lymphocytes Absolute Auto 1.5 X10*3/uL (1.2-4.9); Lymphocytes Percent Auto 7.3 % (20-40); Mean Corpuscular HGB Conc 31.1 g/dl (31.0-35.0); Mean Corpuscular Hemoglobin 28.9 pg (27.0-33.0); Mean Corpuscular Volume 92.9 fL (80.0-98.0); Mean Platelet Volume 9.5 fL (9.4-12.3); Monocytes Absolute Auto 1.1 X10*3/uL (0.1-1.2); Monocytes Percent Auto 5.3 % (2-11); Neutrophils Absolute Auto 17.4 x10*3/uL (2.0-8.3); Neutrophils Percent Auto 86.6 % (45-73); Platelet Count 348 X10*3/uL (160-400); Red Blood Count 4.78 X10*6/uL (4.20-5.50); White Blood Count 20.1 X10*3/uL (4.8-10.8)
[2021-08-31 07:00] LABS: INTERNATIONAL NORM RATIO 1.2 (0.9-1.1); Prothrombin Time 13.5 SEC (9.9-13.0)
[2021-08-31 07:12] VITALS: BP 140/76; PULSE 90; RESP 18; TEMP 36.7; O2SAT 93
[2021-08-31 07:24] LABS: Glucose, Whole Blood 87 mg/dL (60-115)
[2021-08-31 07:57] LABS: Troponin-I High Sensitivity 918.5 ng/L (<3.5-17.0)
--- NOTE | 2021-08-31 09:13 | P.CDIC_ITS ---
CDI Concurrent Query Documentation Clarification: PHYSICIAN'S DOCUMENTATION REQUEST Date of Query: 08/31/21 0913 Patient Name: Ashleigh Keenan Admit Date: 08/27/21 Dear Doctor, A review of the medical record indicates additional documentation may be needed. Please review below and update the documentation accordingly. Clinical Indicators: Risk Factors/Clinical Indicators/Treatments Event note 08/30 - Hypoxia, tachycardia, febrile overnight. CXR possible infiltrate. ICU - Nasotracheal suctioning performed with moderate amount of secretions and gastric fluid - 4 liters oxygen NC. RR 35 HR 135 pulse ox 81 L Oxygen therapy/ABG's performed. ABG's done demonstrating acute on chronic hypercapnia. If possible, please further clarify the type and acuity of respiratory failure: Type: * Acute respiratory failure with hypoxia * Acute respiratory failure with hypercapnia * Acute on chronic respiratory failure with hypoxia and hypercapnia * Other (please specify) * Unable to determine Use of terms such as suspected, likely, concern for, or probable (associated with a specific diagnosis that is being evaluated, monitored, or treated as if it exists) are acceptable and can be coded in the inpatient setting, when documented at the time of discharge. Thank you, Ashley Cabrera [facility], CDIS Extension: [phone] Please use your independent medical judgment in providing your response. THIS QUERY IS PART OF THE PERMANENT MEDICAL RECORD Provider Response: Other Other Diagnosis: Acute on chronic respiratory failure with hypoxia and hypercapnia
[2021-08-31] MEDS: 0.9 % Sodium Chloride Flush 3 ML SYRINGE IVFLUSH ×3 (09:19→23:17)
[2021-08-31] MEDS: Fluticasone Propionate Nasal 16 GM SPRAY 1 SPRAY NOSTRIL-B (09:20)
[2021-08-31 10:02] LABS: Alanine Aminotransferase 96 U/L (0-31); Albumin Level 3.7 g/dL (3.5-5.0); Alkaline Phosphatase 101 U/L (39-117); Anion Gap 14 (12-20); Aspartate Amino Transferase 35 U/L (5-31); Bilirubin Total 0.6 mg/dL (0.0-1.0); Blood Urea Nitrogen 37 mg/dL (9-16); Calcium 9.2 mg/dL (8.4-10.2); Carbon Dioxide 40 mmol/L (22-29); Chloride 95 mmol/L (96-108); Creatinine Clr Calc Pharmacy 56.3; Estimated Glomerular Filt Rate 44; Glucose Fasting 94 mg/dL (60-99); Potassium 3.6 mmol/L (3.3-5.1); Sodium 145 mmol/L (135-145); Total Protein 6.6 g/dL (6.5-8.0)
[2021-08-31 11:09] VITALS: BP 133/83; PULSE 83; RESP 17; TEMP 36.4; O2SAT 94
[2021-08-31 11:14] LABS: Glucose, Whole Blood 161 mg/dL (60-115)
--- NOTE | 2021-08-31 11:32 | MHC.SL.SWA ---
Speech Pathologist Impression: Risk of Aspiration Due to: HX CVA (08/30/21) Dysphasia Diet Status: GROUND/MECH/ADV (NDD2) w/ HONEY THICK liquids to start, pills CRUSHED in PUREE. Liquid Consistency and Strategies for Safe Swallow: Liquid Intake Recommendation: Honey Thick Liquid Intake Strategies: Liquids by Teaspoon Only Solid Food Consistency: Dietary Recommendations: Grnd/Mech Altered (NDD2) Additional Modifications to Solid Foods: Oral Medication Intake: Crushed with Puree Please contact the pharmacy regarding appropriate crushable or liquid drug formulations that are available whenever modified delivery is recommended. Compensatory Strategies and Precautions to be Taken for Safe Swallow: Sitting Upright (90 deg) No Straw Liquids from Spoon Alternate Liquids/Solids Supervision While Eating and Drinking for Safe Swallow: Total Supervision (1:1) Foods to Avoid: Difficult to chew solids and mixed consistencies. Swallowing Recommended Treatments: Compens. Strategy Educat. Recommendation for Speech: Pt on nasal cannula, communicative and responsive this a.m. (when spoken to in Sinhala) and showing sense of humor. Two family members present (Brother and Sister in Law). Pt was respositioned toward head of bed w/ assist, was seated at 90 Degrees. On oral motor assessment, labial and lingual ROM and strength mildly reduced, able to follow all directions and make all movements. Pt given 1/4 tsp. of thin liquid (water), w/good oral transit, swallow trigger present, good elevation on swallow, but wet vocal quality, wet cough after presentations (X2). On juice @ Honey Thick by tsp, Pt had good oral containment, oral transit, swallow trigger, mildly reduced laryngeal elevation, no clinical s/s of aspiration. Pt given full container at this consistency by tsp presentation, no clinical s/s aspiration on repeat presentations, O2 Sats checked and @ 97 w/ no decrease. Pt given Puree consistency, Oral transit wnl, w/swallow trigger present, laryngeal transit mildly reduced, no clinical s/s aspiration on multiple tsp. presentations. Pt given ozzie cracker softened in puree, prolonged period of mastication during oral phase/ w good containment and transition to pharyngeal phase, +swallow trigger, and laryngeal elevation, no clinical s/s aspiration. Conservatively recommend UPGRADE diet to GROUND/MECH/ADV (NDD2) w/ HONEY THICK liquids to start, pills CRUSHED in PUREE. TEST DRILLER will continue to follow, re-assess, advance diet consistencies as warranted. Diet recommendations sent to [facility] by secure text, discussed w/ nursing in person. Inpatient Speech Therapy Comment: TEST DRILLER to continue to follow for toleration of diet, re-assessment, and uprgade if warranted. Frequency/Duration: Date Range for Service Req: Timeline to reassess: Bone Cooking Operator Clinican/Clinical Fellow: No Supervisory Statement: I have reviewed and agree with the student/clinical fellow's documentation: N/A Speech Language Pathologist: Oksana Wills M.A., [facility]-TEST DRILLER
[2021-08-31] MEDS: Insulin Lispro 100 UNIT/ML 3 ML VIAL SUBCUT ×2 (12:19→17:39)
--- NOTE | 2021-08-31 12:45 | HO.PM.IMPN ---
Subjective Subjective Date of Service: 08/31/21 Interval History: More alert this a.m.. Troponin reina to almost 1000 over night. Seen by speech and p.o. status upgraded to ground meat. Peg canceled Review of Systems Unable secondary to unresponsiveness Physical Exam Vital Signs: Vital Signs: Last Vital Signs Temp 97.6 F 08/31/21 11:09 Pulse 83 08/31/21 11:09 Resp 17 08/31/21 11:09 BP 133/83 08/31/21 11:09 Pulse Ox 94 08/31/21 11:09 BMI result Body Mass Index 47.0 Const: Other: Somnolent but arousable Resp: Other: diminished bilaterally with scattered coarse rhonchi throughout Cardio: Other: no S4; positive S1-S2; no S3 murmurs of gallops GI: Other: soft nontender nondistended with normoactive bowel sounds Extrem: Other: no edema Objective Data Active Medications Acetaminophen (Acetaminophen 325 Mg Tablet) 650 mg PO Q6H PRN PRN Reason: Pain, Mild (Pain Scale 1-3) Last Admin: 08/30/21 01:48 Dose: 650 mg Documented by: SOMMER Albuterol Sulfate (Albuterol Sulfate (0.083%) 2.5 Mg/3 Ml Vial.Neb) 2.5 mg INHALE Q4H PRN PRN Reason: wheezing Aspirin (Aspirin 81 Mg Tab.Chew) 81 mg PO DAILY [facility] Last Admin: 08/31/21 09:20 Dose: Not Given Documented by: ADELA Non-Admin Reason: NPO Atorvastatin Calcium (Atorvastatin Calcium 80 Mg Tablet) 80 mg PO BEDTIME [facility] Last Admin: 08/30/21 20:47 Dose: Not Given Documented by: KAMARI Non-Admin Reason: NPO Budesonide (Budesonide 180 Mcg Aer.Pow.Ba) 1 puff INHALE RBID [facility] Last Admin: 08/31/21 07:29 Dose: Not Given Documented by: MARGARET Non-Admin Reason: Med Not Available Dextrose (Dextrose 50 % 25 Gm/50 Ml Vial) 25 gm IVPUSH Q15M PRN; Protocol PRN Reason: per Hypoglycemia Standing Ord. Enoxaparin Sodium (Enoxaparin Sodium 40 Mg/0.4 Ml Syringe) 40 mg SUBCUT Q24H [facility] Last Admin: 08/30/21 16:59 Dose: Not Given Documented by: YNES Non-Admin Reason: Per Dr. Asher Fluticasone Propionate (Fluticasone Propionate Nasal 16 [place]) 1 spray NOSTRIL-B DAILY [facility] Last Admin: 08/31/21 09:20 Dose: 1 spray Documented by: ADELA Glucose (Glucose Gel 15 Gm Gel..Gram.) 15 gm PO Q15M PRN; Protocol PRN Reason: per Hypoglycemia Standing Ord. Hydrochlorothiazide (Hydrochlorothiazide 25 Mg Tablet) 25 mg PO DAILY [facility]; Protocol Last Admin: 08/31/21 09:20 Dose: Not Given Documented by: ADELA Non-Admin Reason: NPO Piperacillin Sod/Tazobactam (Sod 3.375 gm/ Sodium Chloride) 50 mls @ 100 mls/hr IV Q6H [facility] Last Infusion: 08/31/21 08:15 Dose: 0 mls/hr Documented by: ADELA Insulin Human Lispro (Insulin Lispro 100 Unit/Ml 3 Ml Vial) 0 unit SUBCUT QIDACHS [facility]; Protocol Last Admin: 08/31/21 12:19 Dose: 2 unit Documented by: ADELA Meclizine HCl (Meclizine Hcl 25 Mg Tablet) 25 mg PO Q8H PRN PRN Reason: dizziness Last Admin: 08/28/21 07:53 Dose: 25 mg Documented by: WANDER Melatonin (Melatonin 3 Mg Tablet) 6 mg PO BEDTIME PRN PRN Reason: Insomnia Morphine Sulfate (Morphine Sulfate 4 Mg/Ml Cartridge) 4 mg IVPUSH ONCE PRN; Protocol PRN Reason: sob Last Admin: 08/29/21 23:11 Dose: 4 mg Documented by: MERLE Oxycodone HCl (Oxycodone Hcl Immed Release 5 Mg Tablet) 10 mg PO Q4H PRN PRN Reason: Pain, Moderate (Pain Scale 4-6 Pharmacy Consult (Consult Rx Perform Med Rec) 1 each MISCELLANE ONCE PRN PRN Reason: Consult order Senna (Sennosides 8.6 Mg Tablet) 17.2 mg PO BEDTIME PRN PRN Reason: Constipation Sodium Chloride (0.9 % Sodium Chloride Flush 3 Ml Syringe) 3 ml IVFLUSH QSHIFT [facility] Last Admin: 08/31/21 09:19 Dose: 3 ml Documented by: ADELA Labs CBC & Chem 7: 08/31/21 06:20 08/31/21 06:20 Labs: Laboratory Results - last 24 hr 08/30/21 08/30/21 08/30/21 10:54 10:54 15:23 MCV MCH MCHC RDW Plt Count MPV Immature Gran % (Auto) Neut % (Auto) Lymph % (Auto) [place] % (Auto) Eos % (Auto) Baso % (Auto) Lymph # (Auto) [place] # (Auto) Eos # (Auto) Baso # (Auto) Abs Immat Gran (auto) Absolute Neuts (auto) Absolute Nucleated RBC Nucleated RBC % (auto) PT INR O2 Saturation 83.0 83.0 ABG pH at Pt Temp 7.33 L 7.33 L ABG pCO2 at Pt Temp 80 H* 80 H* ABG pO2 at Pt Temp 56 L 56 L ABG HCO3 42 H 42 H ABG Base Excess (Actual) 12.5 12.5 Anion Gap Estim Creat Clear Calc Estimated GFR POC Glucose 169 H Fasting Glucose Calcium Total Bilirubin AST ALT Alkaline Phosphatase Total Protein Albumin Urine Opiates Screen Urine Fentanyl Screen Ur Barbiturates Screen Ur Phencyclidine Scrn Ur Amphetamines Screen U Benzodiazepines Scrn Urine Cocaine Screen U Marijuana (THC) Screen 08/30/21 08/30/21 08/31/21 18:38 20:14 06:20 MCV 92.9 MCH 28.9 MCHC 31.1 RDW 13.0 Plt Count 348 MPV 9.5 Immature Gran % (Auto) 0.6 H Neut % (Auto) 86.6 H Lymph % (Auto) 7.3 L [place] % (Auto) 5.3 Eos % (Auto) 0.1 Baso % (Auto) 0.1 Lymph # (Auto) 1.5 [place] # (Auto) 1.1 Eos # (Auto) 0.0 Baso # (Auto) 0.0 Abs Immat Gran (auto) 0.12 H Absolute Neuts (auto) 17.4 H Absolute Nucleated RBC 0.000 Nucleated RBC % (auto) 0.0 PT INR O2 Saturation ABG pH at Pt Temp ABG pCO2 at Pt Temp ABG pO2 at Pt Temp ABG HCO3 ABG Base Excess (Actual) Anion Gap Estim Creat Clear Calc Estimated GFR POC Glucose 121 H Fasting Glucose Calcium Total Bilirubin AST ALT Alkaline Phosphatase Total Protein Albumin Urine Opiates Screen POSITIVE H Urine Fentanyl Screen Not Detected Ur Barbiturates Screen Not Detected Ur Phencyclidine Scrn Not Detected Ur Amphetamines Screen Not Detected U Benzodiazepines Scrn Not Detected Urine Cocaine Screen POSITIVE H U Marijuana (THC) Screen Not Detected 08/31/21 08/31/21 08/31/21 06:20 06:20 07:13 MCV MCH MCHC RDW Plt Count MPV Immature Gran % (Auto) Neut % (Auto) Lymph % (Auto) [place] % (Auto) Eos % (Auto) Baso % (Auto) Lymph # (Auto) [place] # (Auto) Eos # (Auto) Baso # (Auto) Abs Immat Gran (auto) Absolute Neuts (auto) Absolute Nucleated RBC Nucleated RBC % (auto) PT 13.5 H INR 1.2 H O2 Saturation ABG pH at Pt Temp ABG pCO2 at Pt Temp ABG pO2 at Pt Temp ABG HCO3 ABG Base Excess (Actual) Anion Gap 14 Estim Creat Clear Calc 56.3 Estimated GFR 44 POC Glucose 87 Fasting Glucose 94 Calcium 9.2 Total Bilirubin 0.6 AST 35 H D ALT 96 H Alkaline Phosphatase 101 D Total Protein 6.6 Albumin 3.7 Urine Opiates Screen Urine Fentanyl Screen Ur Barbiturates Screen Ur Phencyclidine Scrn Ur Amphetamines Screen U Benzodiazepines Scrn Urine Cocaine Screen U Marijuana (THC) Screen 08/31/21 11:10 MCV MCH MCHC RDW Plt Count MPV Immature Gran % (Auto) Neut % (Auto) Lymph % (Auto) [place] % (Auto) Eos % (Auto) Baso % (Auto) Lymph # (Auto) [place] # (Auto) Eos # (Auto) Baso # (Auto) Abs Immat Gran (auto) Absolute Neuts (auto) Absolute Nucleated RBC Nucleated RBC % (auto) PT INR O2 Saturation ABG pH at Pt Temp ABG pCO2 at Pt Temp ABG pO2 at Pt Temp ABG HCO3 ABG Base Excess (Actual) Anion Gap Estim Creat Clear Calc Estimated GFR POC Glucose 161 H Fasting Glucose Calcium Total Bilirubin AST ALT Alkaline Phosphatase Total Protein Albumin Urine Opiates Screen Urine Fentanyl Screen Ur Barbiturates Screen Ur Phencyclidine Scrn Ur Amphetamines Screen U Benzodiazepines Scrn Urine Cocaine Screen U Marijuana (THC) Screen Microbiology Microbiology Results: Microbiology 08/30/21 01:35 Blood Culture - Preliminary Blood - Venous No growth after 24 hours. 08/30/21 01:45 Blood Culture - Preliminary Blood - Venous No growth after 24 hours. 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 Episode of unresponsiveness and choking overnight: Question aspiration. 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 HTN w/?Acute systolic CHF -acceptable control - good response to Lasix/hydralazine/morphine - troponin /BNP elevated; EKG without acute ST-T changes -cardiology consult 3.DM2 -acceptable control -correction-dose lispro LMWH Full Code will likely need 1-2 midnights going forward for stabilization of blood pressure and placement Quality Stroke Does the patient have a stroke diagnosis?: No VTE Prior VTE?: No VTE Risk Level:: Medical - moderate - high VTE Device Contraindication: Treatment Not Indicated VTE Drug Contraindication: N/A - Med Ordered
[2021-08-31 14:58] VITALS: BP 134/61; PULSE 88; RESP 17; TEMP 36.2; O2SAT 96
[2021-08-31 17:08] LABS: Glucose, Whole Blood 163 mg/dL (60-115)
--- NOTE | 2021-08-31 19:31 | PC.NURSE ---
Pt gorman catheter removed at 1600. Pt dtv around [id number] Oncoming nurse made aware.
[2021-08-31 20:00] VITALS: BP 145/69; PULSE 89; RESP 20; TEMP 35.8; O2SAT 97
[2021-08-31] MEDS: Atorvastatin Calcium 80 MG TABLET PO (20:59)
--- NOTE | 2021-08-31 21:16 | PM.CNCAR ---
History of Present Illness History of Present Illness Date of Service: 08/31/21 Chief complaint: HTN urgency Narrative: 61-year-old here presenting with dizziness and hypertensive emergency in the setting of cocaine use. Some background of tobacco abuse and has lung disease. Also has hypertension and diabetes. She was noted to have elevated troponin levels. On discussing with her she is denying chest pain or shortness of breath right now. She is on supplemental oxygen. Blood pressure control is better now. [facility] Past Medical History Medical History Diabetes mellitus Essential hypertension Moderate asthma Family History Family History Father Medical history unknown Mother Diabetes Hypertension Father Medical history unknown Mother Hypertension Diabetes Surgical History Surgical History History of cholecystectomy History of cholecystectomy History of open reduction and internal fixation (ORIF) procedure History of open reduction and internal fixation (ORIF) procedure History of tubal ligation History of tubal ligation Social History Social History Household Members: Spouse Housing: Apartment Do you presently have visiting nurse or other home services: No Alcohol intake: never Patient Tobacco Use Status: Current everyday Tobacco user Tobacco use type: Cigarette Cigarette Packs Per Day: 0.75 Cigarettes Per Day: 15.0 Years Smoked: 31 years e-Cigarette/Vaping Use: Never Used Second Hand Smoke Exposure: Yes Advance Directives Date on File: 08/28/21 service: No Current occupational status: other Meds Allergies Allergy/AdvReac Type Severity Reaction Status Date / Time No Known Allergies Allergy Verified 08/07/21 16:33 Active Medications: Current Medications Acetaminophen (Acetaminophen 325 Mg Tablet) 650 mg PO Q6H PRN PRN Reason: Pain, Mild (Pain Scale 1-3) Last Admin: 08/30/21 01:48 Dose: 650 mg Documented by: Albuterol Sulfate (Albuterol Sulfate (0.083%) 2.5 Mg/3 Ml Vial.Neb) 2.5 mg INHALE Q4H PRN PRN Reason: wheezing Aspirin (Aspirin 81 Mg Tab.Chew) 81 mg PO DAILY [facility] Last Admin: 08/31/21 09:20 Dose: Not Given Documented by: Atorvastatin Calcium (Atorvastatin Calcium 80 Mg Tablet) 80 mg PO BEDTIME [facility] Last Admin: 08/31/21 20:59 Dose: 80 mg Documented by: Budesonide (Budesonide 180 Mcg Aer.Pow.Ba) 1 puff INHALE RBID [facility] Last Admin: 08/31/21 20:05 Dose: Not Given Documented by: Dextrose (Dextrose 50 % 25 Gm/50 Ml Vial) 25 gm IVPUSH Q15M PRN; Protocol PRN Reason: per Hypoglycemia Standing Ord. Enoxaparin Sodium (Enoxaparin Sodium 40 Mg/0.4 Ml Syringe) 40 mg SUBCUT Q24H [facility] Last Admin: 08/30/21 16:59 Dose: Not Given Documented by: Fluticasone Propionate (Fluticasone Propionate Nasal 16 Gm [place]) 1 spray NOSTRIL-B DAILY [facility] Last Admin: 08/31/21 09:20 Dose: 1 spray Documented by: Glucose (Glucose Gel 15 Gm Gel..Gram.) 15 gm PO Q15M PRN; Protocol PRN Reason: per Hypoglycemia Standing Ord. Hydrochlorothiazide (Hydrochlorothiazide 25 Mg Tablet) 25 mg PO DAILY [facility]; Protocol Last Admin: 08/31/21 09:20 Dose: Not Given Documented by: Piperacillin Sod/Tazobactam (Sod 3.375 gm/ Sodium Chloride) 50 mls @ 100 mls/hr IV Q6H [facility] Last Admin: 08/31/21 20:45 Dose: 100 mls/hr Documented by: Insulin Human Lispro (Insulin Lispro 100 Unit/Ml 3 Ml Vial) 0 unit SUBCUT QIDACHS [facility]; Protocol Last Admin: 08/31/21 17:39 Dose: 2 unit Documented by: Meclizine HCl (Meclizine Hcl 25 Mg Tablet) 25 mg PO Q8H PRN PRN Reason: dizziness Last Admin: 08/28/21 07:53 Dose: 25 mg Documented by: Melatonin (Melatonin 3 Mg Tablet) 6 mg PO BEDTIME PRN PRN Reason: Insomnia Morphine Sulfate (Morphine Sulfate 4 Mg/Ml Cartridge) 4 mg IVPUSH ONCE PRN; Protocol PRN Reason: sob Last Admin: 08/29/21 23:11 Dose: 4 mg Documented by: Oxycodone HCl (Oxycodone Hcl Immed Release 5 Mg Tablet) 10 mg PO Q4H PRN PRN Reason: Pain, Moderate (Pain Scale 4-6 Pharmacy Consult (Consult Rx Perform Med Rec) 1 each MISCELLANE ONCE PRN PRN Reason: Consult order Senna (Sennosides 8.6 Mg Tablet) 17.2 mg PO BEDTIME PRN PRN Reason: Constipation Sodium Chloride (0.9 % Sodium Chloride Flush 3 Ml Syringe) 3 ml IVFLUSH QSHIFT [facility] Last Admin: 08/31/21 17:49 Dose: 3 ml Documented by: Home Medications Medication Instructions Recorded Confirmed Last Taken Type albuterol sulfate 1 amp INHALATION Q4H PRN 08/27/21 08/27/21 Unknown History albuterol sulfate 90 mcg/actuation 2 puff PO Q6H PRN 08/27/21 08/27/21 Unknown History breath activated powder inhaler (ProAir RespiClick) Physical Exam Vital Signs: Vital Signs: Last Vital Signs Temp 97.2 F 08/31/21 14:58 Pulse 88 08/31/21 14:58 Resp 17 08/31/21 14:58 BP 134/61 08/31/21 14:58 Pulse Ox 96 08/31/21 14:58 BMI result Body Mass Index 47.0 GENERAL APPEARANCE: in no acute distress, pleasant. NECK: no carotid bruit, no jugular venous distention. SKIN: no suspicious lesions, warm and dry. HEART: no murmurs, regular rate and rhythm. LUNGS: clear to auscultation bilaterally. ABDOMEN: soft, nontender. EXTREMITIES: no edema. PERIPHERAL PULSES: equal. NEUROLOGIC: No gross deficits, AAO X 3 Objective Labs and Meds Result diagrams: 08/31/21 06:20 08/31/21 06:20 Lab results: Laboratory Results - last 24 hr 08/31/21 08/31/21 08/31/21 06:20 06:20 06:20 WBC 20.1 H RBC 4.78 Hgb 13.8 Hct 44.4 MCV 92.9 MCH 28.9 MCHC 31.1 RDW 13.0 Plt Count 348 MPV 9.5 Immature Gran % (Auto) 0.6 H Neut % (Auto) 86.6 H Lymph % (Auto) 7.3 L [place] % (Auto) 5.3 Eos % (Auto) 0.1 Baso % (Auto) 0.1 Lymph # (Auto) 1.5 [place] # (Auto) 1.1 Eos # (Auto) 0.0 Baso # (Auto) 0.0 Abs Immat Gran (auto) 0.12 H Absolute Neuts (auto) 17.4 H Absolute Nucleated RBC 0.000 Nucleated RBC % (auto) 0.0 PT INR Sodium 145 Potassium 3.6 Chloride 95 L Carbon Dioxide 40 H* Anion Gap 14 BUN 37 H D Creatinine 1.24 Estim Creat Clear Calc 56.3 Estimated GFR 44 POC Glucose Fasting Glucose 94 Calcium 9.2 Total Bilirubin 0.6 AST 35 H D ALT 96 H Alkaline Phosphatase 101 D Troponin I High Sens 918.5 H* D Total Protein 6.6 Albumin 3.7 08/31/21 08/31/21 08/31/21 06:20 07:13 11:10 WBC RBC Hgb Hct MCV MCH MCHC RDW Plt Count MPV Immature Gran % (Auto) Neut % (Auto) Lymph % (Auto) [place] % (Auto) Eos % (Auto) Baso % (Auto) Lymph # (Auto) [place] # (Auto) Eos # (Auto) Baso # (Auto) Abs Immat Gran (auto) Absolute Neuts (auto) Absolute Nucleated RBC Nucleated RBC % (auto) PT 13.5 H INR 1.2 H Sodium Potassium Chloride Carbon Dioxide Anion Gap BUN Creatinine Estim Creat Clear Calc Estimated GFR POC Glucose 87 161 H Fasting Glucose Calcium Total Bilirubin AST ALT Alkaline Phosphatase Troponin I High Sens Total Protein Albumin 08/31/21 16:25 WBC RBC Hgb Hct MCV MCH MCHC RDW Plt Count MPV Immature Gran % (Auto) Neut % (Auto) Lymph % (Auto) [place] % (Auto) Eos % (Auto) Baso % (Auto) Lymph # (Auto) [place] # (Auto) Eos # (Auto) Baso # (Auto) Abs Immat Gran (auto) Absolute Neuts (auto) Absolute Nucleated RBC Nucleated RBC % (auto) PT INR Sodium Potassium Chloride Carbon Dioxide Anion Gap BUN Creatinine Estim Creat Clear Calc Estimated GFR POC Glucose 163 H Fasting Glucose Calcium Total Bilirubin AST ALT Alkaline Phosphatase Troponin I High Sens Total Protein Albumin Assessment and Plan (1) Cocaine abuse: Status: Acute (2) Hypertensive urgency: Status: Acute (3) Elevated troponin I level: Status: Acute Plan 61-year-old female with cocaine abuse and hypertensive urgency. She has elevated troponin levels. These are likely due to elevated blood pressure and cocaine use. Type 2 CO. No further workup required. She should not be using drugs. Blood pressure control improved. Recommend her being on baby aspirin. Echocardiography has shown no wall motion abnormality. Thank you for allowing me to participate in the care of your patient. Please feel free to contact me if you have any questions. Procedures Date of Service Date of Service: 08/31/21
[2021-08-31 22:50] LABS: Glucose, Whole Blood 130 mg/dL (60-115)
[2021-09-01] VITALS (10 sets, daily range): BP systolic 138–160; BP diastolic 48–98; PULSE 50–154; RESP 16–20; TEMP 35.7–37; O2SAT 92–99
[2021-09-01] MEDS: Piperacillin Sodium/Tazobactam 3.375 GM in 0.9 % Sodium Chloride 50 ML IV ×2 (01:40→07:47)
[2021-09-01 07:18] LABS: Glucose, Whole Blood 164 mg/dL (60-115)
[2021-09-01 07:23] LABS: MANUAL DIFF FLAG NO
[2021-09-01 07:29] LABS: Basophils Percent Auto 0.2 % (0-2); Eosinophils Absolute Auto 0.1 X10*3/uL (0.0-0.4); Eosinophils Percent Auto 0.8 % (0-4); Hematocrit 45.9 % (37.0-47.0); Hemoglobin 14.2 g/dl (12.0-16.0); Imm Gran Abs Auto 0.07 X10*3/uL (0.00-0.03); Imm Gran Pct Auto 0.5 % (0.0-0.4); Lymphocytes Absolute Auto 1.8 X10*3/uL (1.2-4.9); Lymphocytes Percent Auto 11.8 % (20-40); Mean Corpuscular HGB Conc 30.9 g/dl (31.0-35.0); Mean Corpuscular Hemoglobin 29.3 pg (27.0-33.0); Mean Corpuscular Volume 94.6 fL (80.0-98.0); Mean Platelet Volume 10.1 fL (9.4-12.3); Monocytes Absolute Auto 1.1 X10*3/uL (0.1-1.2); Monocytes Percent Auto 7.4 % (2-11); Neutrophils Absolute Auto 11.9 x10*3/uL (2.0-8.3); Neutrophils Percent Auto 79.3 % (45-73); Platelet Count 421 X10*3/uL (160-400); Red Blood Count 4.85 X10*6/uL (4.20-5.50)
[2021-09-01] MEDS: hydroCHLOROthiazide 25 MG TABLET PO (07:46)
[2021-09-01] MEDS: Aspirin 81 MG TAB.CHEW PO (07:47)
[2021-09-01] MEDS: 0.9 % Sodium Chloride Flush 3 ML SYRINGE IVFLUSH ×3 (07:47→20:53)
[2021-09-01] MEDS: Insulin Lispro 100 UNIT/ML 3 ML VIAL SUBCUT ×3 (07:47→20:52)
[2021-09-01] MEDS: Fluticasone Propionate Nasal 16 GM SPRAY 1 SPRAY NOSTRIL-B (07:49)
[2021-09-01 07:58] LABS: Alanine Aminotransferase 64 U/L (0-31); Albumin Level 3.5 g/dL (3.5-5.0); Alkaline Phosphatase 89 U/L (39-117); Anion Gap 12 (12-20); Aspartate Amino Transferase 21 U/L (5-31); Bilirubin Total 0.6 mg/dL (0.0-1.0); Blood Urea Nitrogen 37 mg/dL (9-16); Calcium 9.4 mg/dL (8.4-10.2); Carbon Dioxide 42 mmol/L (22-29); Chloride 94 mmol/L (96-108); Estimated Glomerular Filt Rate > 60; Glucose Fasting 170 mg/dL (60-99); Sodium 144 mmol/L (135-145); Total Protein 6.5 g/dL (6.5-8.0)
[2021-09-01] MEDS: Budesonide 180 MCG AER.POW.BA 1 PUFF INHALE ×2 (08:58→19:21)
--- NOTE | 2021-09-01 11:13 | MHC.SL.SWA ---
Speech Pathologist Impression: Oropharyngeal dysphagia Risk of Aspiration Due to: Lethargy CVA Dysphasia Diet Status: Continue GROUND/MECH/ADV (NDD2) solids w/ HONEY THICK liquids, pills CRUSHED in PUREE. Recommend STRICT ASPIRATION PRECAUTIONS, close monitoring for any overt s/s of aspiration, 1:1 assistance. HOT CELL TECHNICIAN will continue to follow. Liquid Consistency and Strategies for Safe Swallow: Liquid Intake Recommendation: Honey Thick Liquid Intake Strategies: Liquids by Teaspoon Only Solid Food Consistency: Dietary Recommendations: Grnd/Mech Altered (NDD2) Oral Medication Intake: Crushed with Puree Please contact the pharmacy regarding appropriate crushable or liquid drug formulations that are available whenever modified delivery is recommended. Compensatory Strategies and Precautions to be Taken for Safe Swallow: Sitting Upright (90 deg) No Straw Liquids from Spoon Alternate Liquids/Solids Rate of Ingestion Change Oral Check Supervision While Eating and Drinking for Safe Swallow: Total Assistance (1:1) Foods to Avoid: Difficult to chew solids and mixed consistencies. Swallowing Recommended Treatments: Compens. Strategy Educat. Recommendation for Speech: Inpatient Speech Therapy HOT CELL TECHNICIAN will continue to follow, re-assess, advance diet consistencies as appropriate. Screw Supervisor Clinican/Clinical Fellow: No Supervisory Statement: I have reviewed and agree with the student/clinical fellow's documentation: N/A Speech Language Pathologist: Zelda De Santiago M.A., [facility]-HOT CELL TECHNICIAN
[2021-09-01 11:34] LABS: Glucose, Whole Blood 184 mg/dL (60-115)
--- NOTE | 2021-09-01 13:08 | MHC.CM.PN ---
willie got ins auth for pt dr guadarrama wants cardiology to see pt prior to dc dc not expected to happen today
--- NOTE | 2021-09-01 13:19 | MHC.CM.PN ---
new hcp completred with interpertaor pt accepted at [place] ins auth obtained wants cardiology to see pt prior to dc family aware
--- NOTE | 2021-09-01 14:03 | HO.PM.IMPN ---
Subjective Subjective Date of Service: 09/01/21 Interval History: More alert this a.m.. No acute issues overnight Review of Systems Unable secondary to unresponsiveness Physical Exam Vital Signs: Vital Signs: Last Vital Signs Temp 97.6 F 09/01/21 12:01 Pulse 96 09/01/21 12:01 Resp 16 09/01/21 12:01 BP 140/48 H 09/01/21 12:01 Pulse Ox 99 09/01/21 12:01 BMI result Body Mass Index 47.0 Const: Other: Somnolent but arousable Resp: Other: diminished bilaterally with scattered coarse rhonchi throughout Cardio: Other: no S4; positive S1-S2; no S3 murmurs of gallops GI: Other: soft nontender nondistended with normoactive bowel sounds Extrem: Other: no edema Objective Data Active Medications Acetaminophen (Acetaminophen 325 Mg Tablet) 650 mg PO Q6H PRN PRN Reason: Pain, Mild (Pain Scale 1-3) Last Admin: 08/30/21 01:48 Dose: 650 mg Documented by: SOMMER Albuterol Sulfate (Albuterol Sulfate (0.083%) 2.5 Mg/3 Ml Vial.Neb) 2.5 mg INHALE Q4H PRN PRN Reason: wheezing Aspirin (Aspirin 81 Mg Tab.Chew) 81 mg PO DAILY [facility] Last Admin: 09/01/21 07:47 Dose: 81 mg Documented by: ANITHA Atorvastatin Calcium (Atorvastatin Calcium 80 Mg Tablet) 80 mg PO BEDTIME [facility] Last Admin: 08/31/21 20:59 Dose: 80 mg Documented by: SUNNY Budesonide (Budesonide 180 Mcg Aer.Pow.Ba) 1 puff INHALE RBID [facility] Last Admin: 09/01/21 08:58 Dose: 1 puff Documented by: ELISEO Dextrose (Dextrose 50 % 25 Gm/50 Ml Vial) 25 gm IVPUSH Q15M PRN; Protocol PRN Reason: per Hypoglycemia Standing Ord. Enoxaparin Sodium (Enoxaparin Sodium 40 Mg/0.4 Ml Syringe) 40 mg SUBCUT Q24H [facility] Last Admin: 08/30/21 16:59 Dose: Not Given Documented by: YNES Non-Admin Reason: Per Dr. Asher Fluticasone Propionate (Fluticasone Propionate Nasal 16 Gm [place]) 1 spray NOSTRIL-B DAILY [facility] Last Admin: 09/01/21 07:49 Dose: 1 spray Documented by: ANITHA Glucose (Glucose Gel 15 Gm Gel..Gram.) 15 gm PO Q15M PRN; Protocol PRN Reason: per Hypoglycemia Standing Ord. Hydrochlorothiazide (Hydrochlorothiazide 25 Mg Tablet) 25 mg PO DAILY [facility]; Protocol Last Admin: 09/01/21 07:46 Dose: 25 mg Documented by: ANITHA Ampicillin Sodium/Sulbactam (Sodium 1.5 gm/ Sodium Chloride) 100 mls @ 200 mls/hr IV Q6H [facility] Insulin Human Lispro (Insulin Lispro 100 Unit/Ml 3 Ml Vial) 0 unit SUBCUT QIDACHS [facility]; Protocol Last Admin: 09/01/21 12:08 Dose: 2 unit Documented by: ANITHA Meclizine HCl (Meclizine Hcl 25 Mg Tablet) 25 mg PO Q8H PRN PRN Reason: dizziness Last Admin: 08/28/21 07:53 Dose: 25 mg Documented by: WANDER Melatonin (Melatonin 3 Mg Tablet) 6 mg PO BEDTIME PRN PRN Reason: Insomnia Morphine Sulfate (Morphine Sulfate 4 Mg/Ml Cartridge) 4 mg IVPUSH ONCE PRN; Protocol PRN Reason: sob Last Admin: 08/29/21 23:11 Dose: 4 mg Documented by: MERLE Oxycodone HCl (Oxycodone Hcl Immed Release 5 Mg Tablet) 10 mg PO Q4H PRN PRN Reason: Pain, Moderate (Pain Scale 4-6 Pharmacy Consult (Consult Rx Perform Med Rec) 1 each MISCELLANE ONCE PRN PRN Reason: Consult order Senna (Sennosides 8.6 Mg Tablet) 17.2 mg PO BEDTIME PRN PRN Reason: Constipation Sodium Chloride (0.9 % Sodium Chloride Flush 3 Ml Syringe) 3 ml IVFLUSH QSHIFT [facility] Last Admin: 09/01/21 07:47 Dose: 3 ml Documented by: ANITHA Labs CBC & Chem 7: 09/01/21 06:58 09/01/21 06:58 Labs: Laboratory Results - last 24 hr 08/31/21 08/31/21 09/01/21 16:25 21:33 06:58 MCV 94.6 MCH 29.3 MCHC 30.9 L RDW 13.0 Plt Count 421 H MPV 10.1 Immature Gran % (Auto) 0.5 H Neut % (Auto) 79.3 H Lymph % (Auto) 11.8 L [place] % (Auto) 7.4 Eos % (Auto) 0.8 Baso % (Auto) 0.2 Lymph # (Auto) 1.8 [place] # (Auto) 1.1 Eos # (Auto) 0.1 Baso # (Auto) 0.0 Abs Immat Gran (auto) 0.07 H Absolute Neuts (auto) 11.9 H Absolute Nucleated RBC 0.000 Nucleated RBC % (auto) 0.0 Anion Gap Estim Creat Clear Calc Estimated GFR POC Glucose 163 H 130 H Fasting Glucose Calcium Total Bilirubin AST ALT Alkaline Phosphatase Total Protein Albumin 09/01/21 09/01/21 09/01/21 06:58 07:11 11:30 MCV MCH MCHC RDW Plt Count MPV Immature Gran % (Auto) Neut % (Auto) Lymph % (Auto) [place] % (Auto) Eos % (Auto) Baso % (Auto) Lymph # (Auto) [place] # (Auto) Eos # (Auto) Baso # (Auto) Abs Immat Gran (auto) Absolute Neuts (auto) Absolute Nucleated RBC Nucleated RBC % (auto) Anion Gap 12 Estim Creat Clear Calc 83.0 Estimated GFR > 60 POC Glucose 164 H 184 H Fasting Glucose 170 H Calcium 9.4 Total Bilirubin 0.6 AST 21 ALT 64 H Alkaline Phosphatase 89 Total Protein 6.5 Albumin 3.5 Microbiology Microbiology Results: Microbiology 08/30/21 01:35 Blood Culture - Preliminary Blood - Venous No growth after 48 hours. 08/30/21 01:45 Blood Culture - Preliminary Blood - Venous No growth after 48 hours. 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 Episode of unresponsiveness and choking overnight: Question aspiration. Seen by speech recommend NPO status 1. Metabolic acidosis(mixed) -serum Bicarb 42 -discussed with Pulmonary; will try Diamox overnight -reassess labs in a.m. -will need outpatient study question BiPAP at night 2.Posterior CVA (PICA territory) - ASA, high-intensity statin - PT/OT/BENEFITS CONSULTING ANALYST -diet upgraded; peg canceled 3. HTN w/?Acute systolic CHF -acceptable control 4.DM2 -acceptable control -correction-dose lispro LMWH Full Code will likely need 1-2 midnights going forward for stabilization of blood pressure and placement Quality Stroke Does the patient have a stroke diagnosis?: No VTE Prior VTE?: No VTE Risk Level:: Medical - moderate - high VTE Device Contraindication: Treatment Not Indicated VTE Drug Contraindication: N/A - Med Ordered
--- NOTE | 2021-09-01 14:52 | MHC.CM.PN ---
per rounds pt will not be ready for dc this weekend
[2021-09-01] MEDS: Ampicillin Sodium/Sulbactam Na 1.5 GM in 0.9 % Sodium Chloride 100 ML IV ×2 (15:18→20:53)
[2021-09-01 16:24] LABS: Glucose, Whole Blood 107 mg/dL (60-115)
[2021-09-01] MEDS: Enoxaparin Sodium 40 MG/0.4 ML SYRINGE SUBCUT (16:52)
[2021-09-01 20:09] LABS: Glucose, Whole Blood 221 mg/dL (60-115)
[2021-09-01] MEDS: Atorvastatin Calcium 80 MG TABLET PO (20:52)
[2021-09-02] VITALS (7 sets, daily range): BP systolic 128–160; BP diastolic 73–95; PULSE 52–95; RESP 18–20; TEMP 36.3–37.2; O2SAT 93–100
[2021-09-02] MEDS: Ampicillin Sodium/Sulbactam Na 1.5 GM in 0.9 % Sodium Chloride 100 ML IV ×4 (02:55→22:09)
[2021-09-02] MEDS: oxyCODONE HCl Immed Release 5 MG TABLET 10 MG PO (03:04)
[2021-09-02 06:29] LABS: Troponin-I High Sensitivity 248.1 ng/L (<3.5-17.0)
[2021-09-02 07:29] LABS: Glucose, Whole Blood 145 mg/dL (60-115)
[2021-09-02] MEDS: Budesonide 180 MCG AER.POW.BA 1 PUFF INHALE (07:40)
[2021-09-02] MEDS: acetaZOLAMIDE sodium 500 MG VIAL 250 MG IVPUSH (09:32)
[2021-09-02] MEDS: Aspirin 81 MG TAB.CHEW PO (09:32)
[2021-09-02] MEDS: 0.9 % Sodium Chloride Flush 3 ML SYRINGE IVFLUSH ×3 (09:32→22:23)
[2021-09-02] MEDS: hydroCHLOROthiazide 25 MG TABLET PO (09:32)
[2021-09-02] MEDS: Fluticasone Propionate Nasal 16 GM SPRAY 1 SPRAY NOSTRIL-B (09:32)
[2021-09-02 09:36] LABS: Anion Gap 11 (12-20); Blood Urea Nitrogen 22 mg/dL (9-16); Carbon Dioxide 46 mmol/L (22-29); Chloride 91 mmol/L (96-108); Estimated Glomerular Filt Rate > 60; Glucose Random 172 mg/dL (60-115); Potassium 3.8 mmol/L (3.3-5.1); Sodium 144 mmol/L (135-145)
--- NOTE | 2021-09-02 09:53 | PM.PNCARD ---
Subjective Subjective Date of Service: 09/02/21 Interval history: Denying any chest pain. Blood pressure is elevated. Physical Exam Vital Signs: Last Vital Signs Temp 97.9 F 09/02/21 07:13 Pulse 86 09/02/21 07:41 Resp 18 09/02/21 07:41 BP 160/90 H 09/02/21 07:13 Pulse Ox 94 09/02/21 07:13 BMI result Body Mass Index 47.0 GENERAL APPEARANCE: in no acute distress, pleasant. NECK: no carotid bruit, no jugular venous distention. SKIN: no suspicious lesions, warm and dry. HEART: no murmurs, regular rate and rhythm. LUNGS: clear to auscultation bilaterally. ABDOMEN: soft, nontender. EXTREMITIES: no edema. PERIPHERAL PULSES: equal. NEUROLOGIC: No gross deficits, AAO X 3 Objective Labs and Meds Result diagrams: 09/01/21 06:58 09/02/21 05:46 Lab results: Laboratory Results - last 24 hr 09/01/21 09/01/21 09/01/21 11:30 16:20 19:59 Sodium Potassium Chloride Carbon Dioxide Anion Gap BUN Creatinine Estim Creat Clear Calc Estimated GFR POC Glucose 184 H 107 221 H Random Glucose Calcium Troponin I High Sens 09/02/21 09/02/21 09/02/21 05:46 05:46 07:15 Sodium 144 Potassium 3.8 Chloride 91 L Carbon Dioxide 46 H* Anion Gap 11 L BUN 22 H Creatinine 0.75 Estim Creat Clear Calc 93.0 Estimated GFR > 60 POC Glucose 145 H Random Glucose 172 H Calcium 9.0 Troponin I High Sens 248.1 H* D Progress Note: A&P Assessment and plan (1) Elevated troponin I level: Status: Acute (2) Cocaine abuse: Status: Acute (3) Essential hypertension: Status: Acute Plan 61-year-old female with hypertensive urgency visiting a cocaine use. She had elevated troponin levels. No chest pain or shortness of breath. Troponins likely secondary due to high blood pressure and cocaine use. Blood pressure continues to be elevated. Adding amlodipine 5 mg once a day. Closely monitor blood pressure. Thank you for allowing me to participate in the care of your patient. Please feel free to contact me if you have any questions. Fall Risk Details Current Medications: Current Medications Acetaminophen (Acetaminophen 325 Mg Tablet) 650 mg PO Q6H PRN PRN Reason: Pain, Mild (Pain Scale 1-3) Last Admin: 08/30/21 01:48 Dose: 650 mg Documented by: Albuterol Sulfate (Albuterol Sulfate (0.083%) 2.5 Mg/3 Ml Vial.Neb) 2.5 mg INHALE Q4H PRN PRN Reason: wheezing Aspirin (Aspirin 81 Mg Tab.Chew) 81 mg PO DAILY [facility] Last Admin: 09/02/21 09:32 Dose: 81 mg Documented by: Atorvastatin Calcium (Atorvastatin Calcium 80 Mg Tablet) 80 mg PO BEDTIME [facility] Last Admin: 09/01/21 20:52 Dose: 80 mg Documented by: Budesonide (Budesonide 180 Mcg Aer.Pow.Ba) 1 puff INHALE RBID [facility] Last Admin: 09/02/21 07:40 Dose: 1 puff Documented by: Dextrose (Dextrose 50 % 25 Gm/50 Ml Vial) 25 gm IVPUSH Q15M PRN; Protocol PRN Reason: per Hypoglycemia Standing Ord. Enoxaparin Sodium (Enoxaparin Sodium 40 Mg/0.4 Ml Syringe) 40 mg SUBCUT Q24H [facility] Last Admin: 09/01/21 16:52 Dose: 40 mg Documented by: Fluticasone Propionate (Fluticasone Propionate Nasal 16 Gm [place]) 1 spray NOSTRIL-B DAILY [facility] Last Admin: 09/02/21 09:32 Dose: 1 spray Documented by: Glucose (Glucose Gel 15 Gm Gel..Gram.) 15 gm PO Q15M PRN; Protocol PRN Reason: per Hypoglycemia Standing Ord. Hydrochlorothiazide (Hydrochlorothiazide 25 Mg Tablet) 25 mg PO DAILY [facility]; Protocol Last Admin: 09/02/21 09:32 Dose: 25 mg Documented by: Ampicillin Sodium/Sulbactam (Sodium 1.5 gm/ Sodium Chloride) 100 mls @ 200 mls/hr IV Q6H [facility] Last Infusion: 09/02/21 09:45 Dose: Infused Documented by: Insulin Human Lispro (Insulin Lispro 100 Unit/Ml 3 Ml Vial) 0 unit SUBCUT QIDACHS [facility]; Protocol Last Admin: 09/02/21 07:55 Dose: Not Given Documented by: Meclizine HCl (Meclizine Hcl 25 Mg Tablet) 25 mg PO Q8H PRN PRN Reason: dizziness Last Admin: 08/28/21 07:53 Dose: 25 mg Documented by: Melatonin (Melatonin 3 Mg Tablet) 6 mg PO BEDTIME PRN PRN Reason: Insomnia Morphine Sulfate (Morphine Sulfate 4 Mg/Ml Cartridge) 4 mg IVPUSH ONCE PRN; Protocol PRN Reason: sob Last Admin: 08/29/21 23:11 Dose: 4 mg Documented by: Oxycodone HCl (Oxycodone Hcl Immed Release 5 Mg Tablet) 10 mg PO Q4H PRN PRN Reason: Pain, Moderate (Pain Scale 4-6 Last Admin: 09/02/21 03:04 Dose: 10 mg Documented by: Pharmacy Consult (Consult Rx Perform Med Rec) 1 each MISCELLANE ONCE PRN PRN Reason: Consult order Senna (Sennosides 8.6 Mg Tablet) 17.2 mg PO BEDTIME PRN PRN Reason: Constipation Sodium Chloride (0.9 % Sodium Chloride Flush 3 Ml Syringe) 3 ml IVFLUSH QSHIFT [facility] Last Admin: 09/02/21 09:32 Dose: 3 ml Documented by: Time Spent With Patient Time: Total time spent is greater than 50% in coordination of care (as documented) at patient's floor/unit and/or counseling patient: Progress Note: Quality Stroke Does the patient have a stroke diagnosis?: No Procedures Date of Service Date of Service: 09/02/21
[2021-09-02 11:28] LABS: Glucose, Whole Blood 198 mg/dL (60-115)
--- NOTE | 2021-09-02 11:54 | P.PNIM_ITS ---
Subjective Subjective Date of Service: 09/02/21 Interval History: More alert this a.m.. No acute issues overnight Review of Systems Denies chest pain Denies shortness of breath Denies nausea vomiting diarrhea Physical Exam Vital Signs: Vital Signs: Last Vital Signs Temp 97.4 F 09/02/21 11:00 Pulse 95 09/02/21 11:00 Resp 18 09/02/21 11:00 BP 128/87 09/02/21 11:00 Pulse Ox 100 09/02/21 11:00 BMI result Body Mass Index 47.0 Const: Other: Somnolent but arousable Resp: Other: diminished bilaterally with scattered coarse rhonchi throughout Cardio: Other: no S4; positive S1-S2; no S3 murmurs of gallops GI: Other: soft nontender nondistended with normoactive bowel sounds Extrem: Other: no edema Objective Data Active Medications Acetaminophen (Acetaminophen 325 Mg Tablet) 650 mg PO Q6H PRN PRN Reason: Pain, Mild (Pain Scale 1-3) Last Admin: 08/30/21 01:48 Dose: 650 mg Documented by: SOMMER Albuterol Sulfate (Albuterol Sulfate (0.083%) 2.5 Mg/3 Ml Vial.Neb) 2.5 mg INHALE Q4H PRN PRN Reason: wheezing Amlodipine Besylate (Amlodipine Besylate 5 Mg Tablet) 5 mg PO DAILY [facility]; Protocol Aspirin (Aspirin 81 Mg Tab.Chew) 81 mg PO DAILY [facility] Last Admin: 09/02/21 09:32 Dose: 81 mg Documented by: ADELA Atorvastatin Calcium (Atorvastatin Calcium 80 Mg Tablet) 80 mg PO BEDTIME [facility] Last Admin: 09/01/21 20:52 Dose: 80 mg Documented by: BIRDIE Budesonide (Budesonide 180 Mcg Aer.Pow.Ba) 1 puff INHALE RBID [facility] Last Admin: 09/02/21 07:40 Dose: 1 puff Documented by: ELISEO Dextrose (Dextrose 50 % 25 Gm/50 Ml Vial) 25 gm IVPUSH Q15M PRN; Protocol PRN Reason: per Hypoglycemia Standing Ord. Enoxaparin Sodium (Enoxaparin Sodium 40 Mg/0.4 Ml Syringe) 40 mg SUBCUT Q24H [facility] Last Admin: 09/01/21 16:52 Dose: 40 mg Documented by: ANITHA Fluticasone Propionate (Fluticasone Propionate Nasal 16 Gm [place]) 1 spray NOSTRIL-B DAILY [facility] Last Admin: 09/02/21 09:32 Dose: 1 spray Documented by: ADELA Glucose (Glucose Gel 15 Gm Gel..Gram.) 15 gm PO Q15M PRN; Protocol PRN Reason: per Hypoglycemia Standing Ord. Hydrochlorothiazide (Hydrochlorothiazide 25 Mg Tablet) 25 mg PO DAILY [facility]; Protocol Last Admin: 09/02/21 09:32 Dose: 25 mg Documented by: ADELA Ampicillin Sodium/Sulbactam (Sodium 1.5 gm/ Sodium Chloride) 100 mls @ 200 mls/hr IV Q6H [facility] Last Infusion: 09/02/21 09:45 Dose: 0 mls/hr Documented by: ADELA Insulin Human Lispro (Insulin Lispro 100 Unit/Ml 3 Ml Vial) 0 unit SUBCUT QIDACHS [facility]; Protocol Last Admin: 09/02/21 07:55 Dose: Not Given Documented by: ADELA Non-Admin Reason: No Insulin Coverage Meclizine HCl (Meclizine Hcl 25 Mg Tablet) 25 mg PO Q8H PRN PRN Reason: dizziness Last Admin: 08/28/21 07:53 Dose: 25 mg Documented by: WANDER Melatonin (Melatonin 3 Mg Tablet) 6 mg PO BEDTIME PRN PRN Reason: Insomnia Morphine Sulfate (Morphine Sulfate 4 Mg/Ml Cartridge) 4 mg IVPUSH ONCE PRN; Protocol PRN Reason: sob Last Admin: 08/29/21 23:11 Dose: 4 mg Documented by: MERLE Oxycodone HCl (Oxycodone Hcl Immed Release 5 Mg Tablet) 10 mg PO Q4H PRN PRN Reason: Pain, Moderate (Pain Scale 4-6 Last Admin: 09/02/21 03:04 Dose: 10 mg Documented by: BIRDIE Pharmacy Consult (Consult Rx Perform Med Rec) 1 each MISCELLANE ONCE PRN PRN Reason: Consult order Senna (Sennosides 8.6 Mg Tablet) 17.2 mg PO BEDTIME PRN PRN Reason: Constipation Sodium Chloride (0.9 % Sodium Chloride Flush 3 Ml Syringe) 3 ml IVFLUSH QSHIFT [facility] Last Admin: 09/02/21 09:32 Dose: 3 ml Documented by: ADELA Labs CBC & Chem 7: 09/01/21 06:58 09/02/21 05:46 Labs: Laboratory Results - last 24 hr 08/27/21 08/28/21 08/30/21 17:20 06:24 05:58 Carbon Dioxide 29 29 38 H Anion Gap Estim Creat Clear Calc Estimated GFR POC Glucose Random Glucose Calcium 08/31/21 09/01/21 09/01/21 06:20 06:58 16:20 Carbon Dioxide 40 H* 42 H* Anion Gap Estim Creat Clear Calc Estimated GFR POC Glucose 107 Random Glucose Calcium 09/01/21 09/02/21 09/02/21 19:59 05:46 07:15 Carbon Dioxide 46 H* Anion Gap 11 L Estim Creat Clear Calc 93.0 Estimated GFR > 60 POC Glucose 221 H 145 H Random Glucose 172 H Calcium 9.0 09/02/21 11:02 Carbon Dioxide Anion Gap Estim Creat Clear Calc Estimated GFR POC Glucose 198 H Random Glucose Calcium Assessment and Plan (1) Metabolic acidosis: Status: Acute (2) Cerebrovascular accident involving posterior circulation: Status: Acute (3) Essential hypertension: Status: Acute (4) Diabetes mellitus: Status: Acute Plan 61yo with HTN, HLD, DM2 presenting with acute vertigo + nystagmus admitted for HTN urgency but 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 Episode of unresponsiveness and choking overnight: Question aspiration. Seen by speech recommend NPO status 1. Metabolic acidosis(mixed) -serum Bicarb 46 -Diamox 250 IV this a.m.; Diamox 500 at 18:00 tonight -reassess labs in a.m. -will need outpatient study question BiPAP at night 2.Posterior CVA (PICA territory) - ASA, high-intensity statin - PT/OT/[employer] -diet upgraded; peg canceled 3. HTN w/?Acute systolic CHF -acceptable control 4.DM2 -acceptable control -correction-dose lispro LMWH Full Code will likely need 1-2 midnights going forward for stabilization of blood pressure and placement Quality Stroke Does the patient have a stroke diagnosis?: No VTE Prior VTE?: No VTE Risk Level:: Medical - moderate - high VTE Device Contraindication: Treatment Not Indicated VTE Drug Contraindication: N/A - Med Ordered
[2021-09-02] MEDS: Insulin Lispro 100 UNIT/ML 3 ML VIAL SUBCUT ×2 (12:19→22:09)
[2021-09-02] MEDS: amLODIPine Besylate 5 MG TABLET PO (12:20)
[2021-09-02] MEDS: Enoxaparin Sodium 40 MG/0.4 ML SYRINGE SUBCUT (15:44)
[2021-09-02 15:50] LABS: Glucose, Whole Blood 112 mg/dL (60-115)
[2021-09-02] MEDS: acetaZOLAMIDE sodium 500 MG VIAL IVPUSH (18:29)
[2021-09-02 21:00] LABS: Glucose, Whole Blood 174 mg/dL (60-115)
[2021-09-02] MEDS: Atorvastatin Calcium 80 MG TABLET PO (22:09)
[2021-09-03] VITALS (8 sets, daily range): BP systolic 126–158; BP diastolic 71–92; PULSE 70–91; RESP 18–20; TEMP 35.5–36.7; O2SAT 90–100
[2021-09-03] MEDS: Ampicillin Sodium/Sulbactam Na 1.5 GM in 0.9 % Sodium Chloride 100 ML IV ×4 (03:22→21:59)
[2021-09-03] MEDS: Acetaminophen 325 MG TABLET 650 MG PO ×2 (03:34→17:37)
[2021-09-03] MEDS: Budesonide 180 MCG AER.POW.BA 1 PUFF INHALE ×2 (07:32→20:34)
[2021-09-03 07:35] LABS: Glucose, Whole Blood 146 mg/dL (60-115)
[2021-09-03] MEDS: hydroCHLOROthiazide 25 MG TABLET PO (08:00)
[2021-09-03] MEDS: Aspirin 81 MG TAB.CHEW PO (08:00)
[2021-09-03] MEDS: amLODIPine Besylate 5 MG TABLET PO (08:01)
[2021-09-03] MEDS: Fluticasone Propionate Nasal 16 GM SPRAY 1 SPRAY NOSTRIL-B (08:01)
[2021-09-03] MEDS: 0.9 % Sodium Chloride Flush 3 ML SYRINGE IVFLUSH ×3 (08:05→21:59)
[2021-09-03 08:32] LABS: MANUAL DIFF FLAG NO
[2021-09-03 08:37] LABS: Basophils Percent Auto 0.4 % (0-2); Eosinophils Absolute Auto 0.2 X10*3/uL (0.0-0.4); Eosinophils Percent Auto 1.9 % (0-4); Hematocrit 47.3 % (37.0-47.0); Hemoglobin 14.6 g/dl (12.0-16.0); Imm Gran Abs Auto 0.09 X10*3/uL (0.00-0.03); Imm Gran Pct Auto 0.8 % (0.0-0.4); Lymphocytes Absolute Auto 2.5 X10*3/uL (1.2-4.9); Lymphocytes Percent Auto 22.6 % (20-40); Mean Corpuscular HGB Conc 30.9 g/dl (31.0-35.0); Mean Platelet Volume 9.7 fL (9.4-12.3); Monocytes Percent Auto 9.2 % (2-11); Neutrophils Absolute Auto 7.3 x10*3/uL (2.0-8.3); Neutrophils Percent Auto 65.1 % (45-73); Platelet Count 404 X10*3/uL (160-400); Red Blood Count 5.03 X10*6/uL (4.20-5.50); Red Cell Distribution Width 12.5 % (11.0-16.0); White Blood Count 11.2 X10*3/uL (4.8-10.8)
[2021-09-03 08:52] LABS: Alanine Aminotransferase 49 U/L (0-31); Albumin Level 3.6 g/dL (3.5-5.0); Alkaline Phosphatase 84 U/L (39-117); Anion Gap 14 (12-20); Aspartate Amino Transferase 18 U/L (5-31); Bilirubin Total 0.5 mg/dL (0.0-1.0); Blood Urea Nitrogen 16 mg/dL (9-16); Calcium 9.3 mg/dL (8.4-10.2); Carbon Dioxide 36 mmol/L (22-29); Chloride 97 mmol/L (96-108); Creatinine Clr Calc Pharmacy 99.6; Estimated Glomerular Filt Rate > 60; Glucose Fasting 125 mg/dL (60-99); Potassium 4.5 mmol/L (3.3-5.1); Sodium 142 mmol/L (135-145); Total Protein 6.8 g/dL (6.5-8.0)
--- NOTE | 2021-09-03 11:06 | P.PNIM_ITS ---
Subjective Subjective Date of Service: 09/03/21 Interval History: More alert this a.m.. No acute issues overnight Review of Systems Denies chest pain Denies shortness of breath Denies nausea vomiting diarrhea Physical Exam Vital Signs: Vital Signs: Last Vital Signs Temp 96.9 F 09/03/21 07:34 Pulse 83 09/03/21 07:34 Resp 20 09/03/21 07:34 BP 138/92 H 09/03/21 07:34 Pulse Ox 100 09/03/21 07:34 BMI result Body Mass Index 47.0 Const: Other: Somnolent but arousable Resp: Other: diminished bilaterally with scattered coarse rhonchi throughout Cardio: Other: no S4; positive S1-S2; no S3 murmurs of gallops GI: Other: soft nontender nondistended with normoactive bowel sounds Extrem: Other: no edema Objective Data Active Medications Acetaminophen (Acetaminophen 325 Mg Tablet) 650 mg PO Q6H PRN PRN Reason: Pain, Mild (Pain Scale 1-3) Last Admin: 09/03/21 03:34 Dose: 650 mg Documented by: BIRDIE Acetazolamide (Acetazolamide 250 Mg Tablet) 250 mg PO BID [facility]PL[facility] BY [facility] Albuterol Sulfate (Albuterol Sulfate (0.083%) 2.5 Mg/3 Ml Vial.Neb) 2.5 mg INHALE Q4H PRN PRN Reason: wheezing Amlodipine Besylate (Amlodipine Besylate 5 Mg Tablet) 5 mg PO DAILY [facility]; Protocol Last Admin: 09/03/21 08:01 Dose: 5 mg Documented by: ADELA Aspirin (Aspirin 81 Mg Tab.Chew) 81 mg PO DAILY [facility] BY [facility] Last Admin: 09/03/21 08:00 Dose: 81 mg Documented by: ADELA Atorvastatin Calcium (Atorvastatin Calcium 80 Mg Tablet) 80 mg PO BEDTIME REPLACED BY [facility] Last Admin: 09/02/21 22:09 Dose: 80 mg Documented by: BIRDIE Budesonide (Budesonide 180 Mcg Aer.Pow.Ba) 1 puff INHALE RBID REPLACED BY [facility] Last Admin: 09/03/21 07:32 Dose: 1 puff Documented by: ELISEO Dextrose (Dextrose 50 % 25 Gm/50 Ml Vial) 25 gm IVPUSH Q15M PRN; Protocol PRN Reason: per Hypoglycemia Standing Ord. Enoxaparin Sodium (Enoxaparin Sodium 40 Mg/0.4 Ml Syringe) 40 mg SUBCUT Q24H [facility]PL[facility] BY [facility] Last Admin: 09/02/21 15:44 Dose: 40 mg Documented by: ADELA Fluticasone Propionate (Fluticasone Propionate Nasal 16 Gm [place]) 1 spray NOSTRIL-B DAILY [facility] Last Admin: 09/03/21 08:01 Dose: 1 spray Documented by: ADELA Glucose (Glucose Gel 15 Gm Gel..Gram.) 15 gm PO Q15M PRN; Protocol PRN Reason: per Hypoglycemia Standing Ord. Hydrochlorothiazide (Hydrochlorothiazide 25 Mg Tablet) 25 mg PO DAILY [facility]; Protocol Last Admin: 09/03/21 08:00 Dose: 25 mg Documented by: ADELA Ampicillin Sodium/Sulbactam (Sodium 1.5 gm/ Sodium Chloride) 100 mls @ 200 mls/ hr IV Q6H REPLACED BY [facility] Last Admin: 09/03/21 08:00 Dose: 200 mls/hr Documented by: ADELA Insulin Human Lispro (Insulin Lispro 100 Unit/Ml 3 Ml Vial) 0 unit SUBCUT QIDACHS REPLACED BY [facility]; Protocol Last Admin: 09/03/21 07:54 Dose: Not Given Documented by: ADELA Non-Admin Reason: No Insulin Coverage Meclizine HCl (Meclizine Hcl 25 Mg Tablet) 25 mg PO Q8H PRN PRN Reason: dizziness Last Admin: 08/28/21 07:53 Dose: 25 mg Documented by: WANDER Melatonin (Melatonin 3 Mg Tablet) 6 mg PO BEDTIME PRN PRN Reason: Insomnia Morphine Sulfate (Morphine Sulfate 4 Mg/Ml Cartridge) 4 mg IVPUSH ONCE PRN; Protocol PRN Reason: sob Last Admin: 08/29/21 23:11 Dose: 4 mg Documented by: MERLE Oxycodone HCl (Oxycodone Hcl Immed Release 5 Mg Tablet) 10 mg PO Q4H PRN PRN Reason: Pain, Moderate (Pain Scale 4-6 Last Admin: 09/02/21 03:04 Dose: 10 mg Documented by: BIRDIE Pharmacy Consult (Consult Rx Perform Med Rec) 1 each MISCELLANE ONCE PRN PRN Reason: Consult order Senna (Sennosides 8.6 Mg Tablet) 17.2 mg PO BEDTIME PRN PRN Reason: Constipation Sodium Chloride (0.9 % Sodium Chloride Flush 3 Ml Syringe) 3 ml IVFLUSH QSHIFT REPLACED BY [facility] Last Admin: 09/03/21 08:05 Dose: 3 ml Documented by: ADELA Labs CBC & Chem 7: 09/03/21 08:23 09/03/21 08:23 Labs: Laboratory Results - last 24 hr 09/02/21 09/02/21 09/02/21 11:02 15:45 20:56 MCV MCH MCHC RDW Plt Count MPV Immature Gran % (Auto) Neut % (Auto) Lymph % (Auto) [place] % (Auto) Eos % (Auto) Baso % (Auto) Lymph # (Auto) [place] # (Auto) Eos # (Auto) Baso # (Auto) Abs Immat Gran (auto) Absolute Neuts (auto) Absolute Nucleated RBC Nucleated RBC % (auto) Anion Gap Estim Creat Clear Calc Estimated GFR POC Glucose 198 H 112 174 H Fasting Glucose Calcium Total Bilirubin AST ALT Alkaline Phosphatase Total Protein Albumin 09/03/21 09/03/21 09/03/21 07:32 08:23 08:23 MCV 94.0 MCH 29.0 MCHC 30.9 L RDW 12.5 Plt Count 404 H MPV 9.7 Immature Gran % (Auto) 0.8 H Neut % (Auto) 65.1 Lymph % (Auto) 22.6 [place] % (Auto) 9.2 Eos % (Auto) 1.9 Baso % (Auto) 0.4 Lymph # (Auto) 2.5 [place] # (Auto) 1.0 Eos # (Auto) 0.2 Baso # (Auto) 0.0 Abs Immat Gran (auto) 0.09 H Absolute Neuts (auto) 7.3 Absolute Nucleated RBC 0.000 Nucleated RBC % (auto) 0.0 Anion Gap 14 Estim Creat Clear Calc 99.6 Estimated GFR > 60 POC Glucose 146 H Fasting Glucose 125 H Calcium 9.3 Total Bilirubin 0.5 AST 18 ALT 49 H Alkaline Phosphatase 84 Total Protein 6.8 Albumin 3.6 Assessment and Plan (1) Metabolic acidosis: Status: Acute (2) Cerebrovascular accident involving posterior circulation: Status: Acute (3) Essential hypertension: Status: Acute Plan 61yo with HTN, HLD, DM2 presenting with acute vertigo + nystagmus admitted for HTN urgency but 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 Episode of unresponsiveness and choking overnight: Question aspiration. Seen by speech recommend NPO status 1. Metabolic acidosis(mixed) -serum Bicarb 36 -Diamox 250 BID -reassess labs in a.m. 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 HTN w/?Acute systolic CHF -acceptable control 4.DM2 -acceptable control -correction-dose lispro LMWH Full Code will likely need 1-2 midnights going forward for stabilization of blood pressure and placement Quality Stroke Does the patient have a stroke diagnosis?: No VTE Prior VTE?: No VTE Risk Level:: Medical - moderate - high VTE Device Contraindication: Treatment Not Indicated VTE Drug Contraindication: N/A - Med Ordered
[2021-09-03 11:37] LABS: Glucose, Whole Blood 213 mg/dL (60-115)
[2021-09-03] MEDS: Insulin Lispro 100 UNIT/ML 3 ML VIAL SUBCUT (12:24)
[2021-09-03] MEDS: acetaZOLAMIDE 250 MG TABLET PO ×2 (12:24→21:59)
[2021-09-03 15:56] LABS: Glucose, Whole Blood 149 mg/dL (60-115)
[2021-09-03] MEDS: Enoxaparin Sodium 40 MG/0.4 ML SYRINGE SUBCUT (16:54)
--- NOTE | 2021-09-03 17:25 | MHC.RECOVSUP ---
? Reason for consult Recovery Support o Current location: 445 o Identified substance use concern: Cocaine / Opiate <del>-</del> <del>Overdose</del> <del>-</del> <del>Withdrawal</del> <del>-</del> <del>Seeking</del> <del>ATS</del> <del>(detox)</del> <del>-</del> <del>Support</del> <del>?</del> <del>Intervention:</del> <del>o</del> <del>ATS</del> <del>bed</del> <del>search</del> <del>started/completed/in</del> <del>process</del> <del>o</del> <del>MAT</del> <del>started</del> <del>or</del> <del>to</del> <del>be</del> <del>started</del> <del>o</del> <del>Community</del> <del>resources</del> <del>provided</del> <del>o</del> <del>Harm</del> <del>reduction</del> <del>discussion</del> <del>?</del> <del>Plan:</del> <del>o</del> <del>Referral</del> <del>to</del> <del>[facility]</del> <del>o</del> <del>Bed</del> <del>search</del> <del>in</del> <del>progress</del> <del>to</del> <del>o</del> <del>Follow</del> <del>up</del> <del>tomorrow</del> <del>o</del> <del>Patient</del> <del>awaiting</del> <del>crisis</del> <del>evaluation</del> <del>o</del> <del>Patient</del> <del>to</del> <del>follow</del> <del>up</del> <del>with</del> <del>[facility]</del> <del>after</del> <del>discharge</del> ? Additional information: Met with Patient and patient was confuse as of why I wanted to talk with her.. She stated that was fine..
[2021-09-03 19:54] LABS: Glucose, Whole Blood 143 mg/dL (60-115)
[2021-09-03] MEDS: Atorvastatin Calcium 80 MG TABLET PO (21:59)
[2021-09-04] VITALS (7 sets, daily range): BP systolic 123–166; BP diastolic 64–79; PULSE 59–95; RESP 17–20; TEMP 36.1–36.9; O2SAT 94–99
[2021-09-04] MEDS: Ampicillin Sodium/Sulbactam Na 1.5 GM in 0.9 % Sodium Chloride 100 ML IV ×3 (02:14→14:02)
[2021-09-04] MEDS: Acetaminophen 325 MG TABLET 650 MG PO (06:45)
[2021-09-04 07:23] LABS: Glucose, Whole Blood 128 mg/dL (60-115)
[2021-09-04] MEDS: Budesonide 180 MCG AER.POW.BA 1 PUFF INHALE (07:26)
[2021-09-04 07:59] LABS: MANUAL DIFF FLAG NO
[2021-09-04 08:08] LABS: Basophils Percent Auto 0.3 % (0-2); Eosinophils Absolute Auto 0.2 X10*3/uL (0.0-0.4); Eosinophils Percent Auto 1.7 % (0-4); Hematocrit 45.6 % (37.0-47.0); Hemoglobin 14.2 g/dl (12.0-16.0); Imm Gran Pct Auto 1.5 % (0.0-0.4); Lymphocytes Absolute Auto 2.8 X10*3/uL (1.2-4.9); Lymphocytes Percent Auto 20.9 % (20-40); Mean Corpuscular HGB Conc 31.1 g/dl (31.0-35.0); Mean Corpuscular Volume 93.1 fL (80.0-98.0); Mean Platelet Volume 9.8 fL (9.4-12.3); Monocytes Absolute Auto 0.9 X10*3/uL (0.1-1.2); Monocytes Percent Auto 6.6 % (2-11); Neutrophils Absolute Auto 9.2 x10*3/uL (2.0-8.3); Platelet Count 454 X10*3/uL (160-400); Red Cell Distribution Width 12.3 % (11.0-16.0); White Blood Count 13.3 X10*3/uL (4.8-10.8)
[2021-09-04 08:19] LABS: Alanine Aminotransferase 41 U/L (0-31); Albumin Level 3.6 g/dL (3.5-5.0); Alkaline Phosphatase 81 U/L (39-117); Anion Gap 11 (12-20); Aspartate Amino Transferase 14 U/L (5-31); Bilirubin Total 0.4 mg/dL (0.0-1.0); Blood Urea Nitrogen 17 mg/dL (9-16); Calcium 9.4 mg/dL (8.4-10.2); Carbon Dioxide 36 mmol/L (22-29); Chloride 99 mmol/L (96-108); Creatinine Clr Calc Pharmacy 99.6; Estimated Glomerular Filt Rate > 60; Glucose Fasting 126 mg/dL (60-99); Potassium 3.9 mmol/L (3.3-5.1); Sodium 142 mmol/L (135-145); Total Protein 6.6 g/dL (6.5-8.0)
[2021-09-04] MEDS: amLODIPine Besylate 5 MG TABLET PO (08:24)
[2021-09-04] MEDS: 0.9 % Sodium Chloride Flush 3 ML SYRINGE IVFLUSH ×2 (08:24→15:48)
[2021-09-04] MEDS: acetaZOLAMIDE 250 MG TABLET PO (08:24)
[2021-09-04] MEDS: hydroCHLOROthiazide 25 MG TABLET PO (08:24)
[2021-09-04] MEDS: Fluticasone Propionate Nasal 16 GM SPRAY 1 SPRAY NOSTRIL-B (08:25)
[2021-09-04] MEDS: Aspirin 81 MG TAB.CHEW PO (08:25)
[2021-09-04 11:39] LABS: Glucose, Whole Blood 148 mg/dL (60-115)
--- NOTE | 2021-09-04 12:08 | PM.DS ---
DS: Providers Provider Date of Service: 09/04/21 Date of admission: 08/27/21 22:50 Date of discharge: 09/04/21 Primary care physician: Dolores Dubois MD Consults: 08/27/21 22:50 Consult to Neurology Routine Consulting Provider: [facility] Reason for consultation: dizziness 08/28/21 08:04 Consult to Care Team Routine Comment: Reason for consultation: cocaine abuse 08/28/21 10:34 Consult to Care Team Routine Comment: Reason for consultation: cocaine 08/31/21 07:44 Consult to Gastroenterology Stat Consulting Provider: Juan Asher Reason for consultation: PEG Tube Has provider been notified: No 08/31/21 07:57 Consult to Cardiology Routine Consulting Provider: Pawel Tsang Reason for consultation: Abn Trop Has provider been notified: No DS: Diagnosis Discharge Diagnosis (1) Cerebrovascular accident involving posterior circulation: Status: Acute (2) Essential hypertension: Status: Acute (3) Diabetes mellitus: Status: Acute DS: Summary Hospital Course Hospital Course: 61-year-old female with a past medical history of hypertension, hyperlipidemia, diabetes, substance abuse presented to the hospital with a chief complaint of dizziness.? patient reported that at 06:30 in the morning she went to the bed and she woke up around 03:00 o'clock; when she woke up she felt dizzy, felt like room spinning associated nausea; denied any chest pain or palpitations.? mentioned that she was not able to get up; felt tired; denies any fever chills cough.? denies any headaches or blurry visions.? patient mentions that she has not been taking her? verapamil; only taking lisinopril hydrochlorothiazide. denies any gi gu symptoms.? Hospital Course Admitted to telemetry; seen by Neurology;MRI brain was reviewed.? There was faint area of hyper intensity on DWI left-side of medulla.? MRI was of poor quality because of motion and corresponding FLAIR imaging was not of good quality.? FLAIR imaging did reveal significant chronic microvascular disease including in basis pontis.? This type of pathology can come from hypertension but can also come from drug abuse especially cocaine and binge alcohol drinking.? Mainstay of management is staying away from drugs, blood pressure control, sugar control, and anti-platelet agents. Meds were adjusted and blood pressure was controlled. Aspirin and statin were added. Patient had 1 episode of uncontrolled hypertension and subsequently had a troponin spike greater than 900. Seen by Cardiology in consultation; echo without acute abnormalities thought to be related to hypertension. During the initial episode of uncontrolled hypertension while in house, is likely the patient aspirated. Subsequent chest x-ray demonstrated an infiltrate for which she was treated with Zosyn, she will be discharged to complete course of Augmentin. At this point in time she is medically acceptable for acute rehab Time Spent with Patient Time attestation: Total time spent providing and/or coordinating discharge services: Discharge coordination time: Greater than 30 minutes Quality: Stroke Does the patient have a stroke diagnosis?: Yes Reason for No Anti-thrombotic at DC: N/A - Med Ordered Reason for No Anticoagulant at DC: Drug treatment not indicated Reason Not Initiating IV-Tpa: Drug treatment not indicated Reason for No Anti-thrombotic by Day Two: Drug treatment not indicated Reason for No Statin at DC: N/A - Med Ordered Physical Exam Vital Signs: Vital Signs: Last Vital Signs Temp 97.8 F 09/04/21 11:15 Pulse 63 09/04/21 11:15 Resp 20 09/04/21 11:15 BP 123/64 09/04/21 11:15 Pulse Ox 96 09/04/21 11:15 BMI result Body Mass Index 47.0 Const: Other: Somnolent but arousable Resp: Other: diminished bilaterally with scattered coarse rhonchi throughout Cardio: Other: no S4; positive S1-S2; no S3 murmurs of gallops GI: Other: soft nontender nondistended with normoactive bowel sounds Neuro: Other: alert and awake with normal spontaneity of speech fluency comprehension and affect.? Into was performed with the help of an freelance interpreter/translator.? Face was symmetrical.? Tongue was midline.? Pupils were equal and reactive to light.? Extraocular muscles were intact.? Visual claire are full to threat.? There was mild left-sided drift.? There was mild left [id number] ataxia and mild left-sided leg weakness.? Plantars were flexors.? Deep tendon reflexes were absent. Extrem: Other: no edema DS: Data Data Completed and Pending Labs on day of discharge: Laboratory Results - last 24 hr 09/03/21 09/03/21 09/04/21 15:51 19:49 07:13 WBC RBC Hgb Hct MCV MCH MCHC RDW Plt Count MPV Immature Gran % (Auto) Neut % (Auto) Lymph % (Auto) [place] % (Auto) Eos % (Auto) Baso % (Auto) Lymph # (Auto) [place] # (Auto) Eos # (Auto) Baso # (Auto) Abs Immat Gran (auto) Absolute Neuts (auto) Absolute Nucleated RBC Nucleated RBC % (auto) Sodium Potassium Chloride Carbon Dioxide Anion Gap BUN Creatinine Estim Creat Clear Calc Estimated GFR POC Glucose 149 H 143 H 128 H Fasting Glucose Calcium Total Bilirubin AST ALT Alkaline Phosphatase Total Protein Albumin 09/04/21 09/04/21 09/04/21 07:45 07:45 11:13 WBC 13.3 H RBC 4.90 Hgb 14.2 Hct 45.6 MCV 93.1 MCH 29.0 MCHC 31.1 RDW 12.3 Plt Count 454 H MPV 9.8 Immature Gran % (Auto) 1.5 H Neut % (Auto) 69.0 Lymph % (Auto) 20.9 [place] % (Auto) 6.6 Eos % (Auto) 1.7 Baso % (Auto) 0.3 Lymph # (Auto) 2.8 [place] # (Auto) 0.9 Eos # (Auto) 0.2 Baso # (Auto) 0.0 Abs Immat Gran (auto) 0.20 H Absolute Neuts (auto) 9.2 H Absolute Nucleated RBC 0.000 Nucleated RBC % (auto) 0.0 Sodium 142 Potassium 3.9 Chloride 99 Carbon Dioxide 36 H Anion Gap 11 L BUN 17 H Creatinine 0.70 Estim Creat Clear Calc 99.6 Estimated GFR > 60 POC Glucose 148 H Fasting Glucose 126 H Calcium 9.4 Total Bilirubin 0.4 AST 14 ALT 41 H Alkaline Phosphatase 81 Total Protein 6.6 Albumin 3.6 Discharge Plan Discharge Patient Disposition: Xfer Inpatient Rehab Fac Discharge Diagnosis: CVA involving posterior circulation Referrals: Dolores Renteria MD [Primary Care Provider] - 1 Week Discharge Medications: New atorvastatin 80 mg Tablet 80 mg PO BEDTIME Qty: 30 0RF acetazolamide 250 mg Tablet 250 mg PO BID Qty: 60 0RF amlodipine 5 mg Tablet 5 mg PO DAILY Qty: 30 0RF Protocol: Hold for SBP< HOLD for SBP < : 90 aspirin 81 mg Tablet,Chewable 81 mg PO DAILY Qty: 30 0RF amoxicillin-pot clavulanate 875-125 mg tablet 1 tab PO BID Qty: 20 0RF Continued albuterol sulfate 2.5 mg /3 mL (0.083 %) solution for nebulization 1 amp inhalation Q4H PRN (Reason: wheezing) 0RF ProAir RespiClick 90 mcg/actuation aerosol powdr breath activated 2 puff PO Q6H PRN (Reason: dyspnea) 0RF verapamil 240 mg capsule,ext rel. pellets 24 hr 240 mg PO DAILY 90 Days Qty: 90 3RF metformin 500 mg tablet 500 mg PO BID 90 Days Qty: 180 3RF lisinopril 10 mg tablet 10 mg PO DAILY 90 Days Qty: 90 3RF hydrochlorothiazide 25 mg tablet 25 mg PO DAILY 90 Days Qty: 90 3RF fluticasone propionate [Flonase Allergy Relief] 50 mcg/actuation spray,suspension 1 spray intranasal DAILY 30 Days Qty: 16 6RF Rx Instructions: administer into each nostril budesonide [Pulmicort] 0.5 mg/2 mL suspension for nebulization 0.25 mg inhalation BID 30 Days Qty: 60 6RF aspirin [Adult Aspirin Regimen] 81 mg tablet,delayed release (DR/EC) 81 mg PO DAILY 90 Days Qty: 90 3RF acetaminophen [Tylenol 8 Hour] 650 mg tablet extended release 650 mg PO Q8H PRN (Reason: pain) 30 Days Qty: 90 11RF Discharge Orders: Discharge Order (Routine); Ordered 09/04/21 Ordered By: Lukas Hackett Diet: advance to usual diet Activity on Discharge: As tolerated Stand Alone Forms: Patient Portal Discharge page Care Plan Goals: Complete course of Augmentin Health Concerns: Avoid cocaine at all costs Plan of Treatment: Acute rehab Assessment: As per discharge summary
--- NOTE | 2021-09-04 12:41 | MHC.CM.PN ---
PT DCD TODAY TO [facility] AT 3;30 BY AMB
--- NOTE | 2021-09-04 12:48 | MHC.CM.PN ---
PTS DGTER /HCP NOTIFIED OF DC
[2021-09-04 14:06] LABS: COVID-19 Test Negative (Negative)
[2021-09-04 15:30] LABS: Glucose, Whole Blood 163 mg/dL (60-115)
[2021-09-04] MEDS: Enoxaparin Sodium 40 MG/0.4 ML SYRINGE SUBCUT (15:47)
--- NOTE | 2021-09-04 16:20 | MHC.SL.SWA ---
Speech Pathologist Impression: Oropharyngeal dysphagia Risk of Aspiration Due to: Lethargy Dysphasia Diet Status: No Change- Continue GROUND/MECH/ADV (NDD2) solids w/ HONEY THICK liquids, pills CRUSHED in PUREE. Recommend STRICT ASPIRATION PRECAUTIONS, close monitoring for any overt s/s of aspiration, 1:1 assistance. GREETER will continue to follow. Liquid Consistency and Strategies for Safe Swallow: Liquid Intake Recommendation: Honey Thick Liquid Intake Strategies: Liquids by Teaspoon Only Solid Food Consistency: Dietary Recommendations: Grnd/Mech Altered (NDD2) Oral Medication Intake: Crushed with Puree Please contact the pharmacy regarding appropriate crushable or liquid drug formulations that are available whenever modified delivery is recommended. Compensatory Strategies and Precautions to be Taken for Safe Swallow: Sitting Upright (90 deg) No Straw Liquids from Spoon Alternate Liquids/Solids Rate of Ingestion Change Oral Check Supervision While Eating and Drinking for Safe Swallow: Total Assistance (1:1) Foods to Avoid: Difficult to chew solids and mixed consistencies. Swallowing Recommended Treatments: Compens. Strategy Educat. Recommendation for Speech: Inpatient Speech Therapy Payroll Assistant Clinican/Clinical Fellow: No Supervisory Statement: I have reviewed and agree with the student/clinical fellow's documentation: N/A Speech Language Pathologist: Zelda De Santiago M.A., CCC-GREETER
== END 2021-09-04 16:50 | DRG 45 ==
LOC: HO.ED 20:48 → HO.EDOVER 08-28 07:07 → HO.IMC 08-29 16:22
PROVIDERS: Family Medicine; Internal Medicine; Internal Medicine Gastroenterology; Physician Assistant; Admitting Provider Hospitalist; Emergency Provider Emergency Medicine; PCP Internal Medicine; Visit Provider Hospitalist
DX: I63.89 Other cerebral infarction (principal); J96.21 Acute and chronic respiratory failure with hypoxia; I21.A1 Myocardial infarction type 2; I50.21 Acute systolic (congestive) heart failure; I67.4 Hypertensive encephalopathy; G81.94 Hemiplegia, unspecified affecting left nondominant side; I11.0 Hypertensive heart disease with heart failure; E11.9 Type 2 diabetes mellitus without complications; E78.5 Hyperlipidemia, unspecified; F17.210 Nicotine dependence, cigarettes, uncomplicated; R29.700 NIHSS score 0; I16.0 Hypertensive urgency; E66.3 Overweight; Z68.42 Body mass index [BMI] 45.0-49.9, adult; J96.22 Acute and chronic respiratory failure with hypercapnia; F14.10 Cocaine abuse, uncomplicated; E87.4 Mixed disorder of acid-base balance; R13.10 Dysphagia, unspecified; H55.00 Unspecified nystagmus; Z20.822 Contact with and (suspected) exposure to COVID-19; Z71.6 Tobacco abuse counseling; Z79.82 Long term (current) use of aspirin; Z79.84 Long term (current) use of oral hypoglycemic drugs; Z79.899 Other long term (current) drug therapy
CPT/HCPCS: 36415; 36600; 70450; 70496; 70498; 70551; 71045; 80048; 80053; 80061; 80076; 80307; 81003; 82803; 82947; 83036; 83605; 83735; 83880; 84484; 85025; 85610; 86704; 86706; 86803; 87040; 87340; 87389; 87635; 90686; 92526; 92610; 93005; 93306; 94640; 96374; 97110; 97162; 97165; 97530; 97535; 99285; 99291; J0295; J1170; J1650; J1940; J2270; J2543; Q9967

== ENCOUNTER 2021-10-11 07:10 | Inpatient (IN) | payer OTHER, SELFPAY ==
[2021-10-11] VITALS (13 sets, daily range): BP systolic 118–216; BP diastolic 70–150; PULSE 87–121; RESP 15–22; TEMP 36.3–38.1; O2SAT 80–96; BMI 48.6
--- NOTE | ~2021-10-11 | XR_ITS ---
EXAMINATION: XR CHEST CLINICAL INFORMATION: Dyspnea COMPARISON: October 30, 2021 and studies dating back to November 28, 2008 TECHNIQUE: AP portable view of the chest was obtained. FINDINGS: The cardiopericardial silhouette appears mildly enlarged. No definite airspace edema is appreciated. There is a region of discoid disease within the mid right lung as well as hazy density at the lung base and obscured medial aspect of the right hemidiaphragm. Findings may be related to atelectatic change and right pleural effusion. No pneumothorax. XR/XR chest 1V IMPRESSION: Right lung disease with probable pleural effusion.
--- NOTE | ~2021-10-11 | XR_ITS ---
EXAMINATION: XR FOOT, LEFT CLINICAL INFORMATION: Pain COMPARISON: None TECHNIQUE: AP, lateral, and oblique views of the left foot. FINDINGS: The bones and soft tissues are normal. No fracture. Alignment is anatomic. Joint spaces are maintained. There are small posterior and inferior calcaneal spurs. XR/XR foot LT 2V IMPRESSION: Small posterior and inferior calcaneal spurs. Exam otherwise normal, no fracture or dislocation.
--- NOTE | 2021-10-11 07:20 | ED_ITS ---
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 Family found her with blue lips this morning - EMS did not report she was on oxygen and the patient states she took it off around 6am this morning becasue I only wear it at night. EMS notes her O2 sats were in the 70s and put on NRB here she is low 90s on 6L with a very coarse junky cough. MD elicited complaint: shortness of breath and cough Pertinent past history: asthma and pneumonia Onset (ago): day(s) (3) Context: other (hx of asthma, O2 dependence, aspiration pneumonia) Timing: constant Severity: severe Exacerbating factors: lying flat, exertion and coughing Relieving factors: oxygen, rest and upright position Known history of: asthma and recurrent pneumonia Associated symptoms: cough and sputum production Treatment prior to arrival: oxygen Related Data Home Medications Medication Instructions Recorded Confirmed albuterol sulfate 1 amp INHALATION Q4H PRN 08/27/21 08/27/21 fluticasone propionate 44 2 puff INHALATION BID 09/28/21 mcg/actuation HFA aerosol inhaler (Flovent HFA) lidocaine 5 % topical patch 1 patch TOPICAL DAILY 09/28/21 sennosides 8.6 mg tablet (senna) 17.2 mg PO DAILY tab 09/28/21 thiamine HCl (vitamin B1) 100 mg 50 mg PO DAILY 09/28/21 tablet albuterol sulfate 90 mcg/actuation 2 puff PO Q6H PRN 10/11/21 aerosol inhaler (ProAir HFA) ipratropium 20 mcg-albuterol 100 1 puff INHALATION QID 10/11/21 mcg/actuation mist for inhalation (Combivent Respimat) lisinopril 10 mg tablet 1 tab PO DAILY 10/11/21 lisinopril 20 mg tablet 1 tab PO DAILY 10/11/21 Previous Rx's Medication Instructions Recorded acetaminophen 650 mg 650 mg PO Q8H PRN 30 Days #90 tab 08/07/21 tablet,extended release (Tylenol 8 Hour) budesonide 0.5 mg/2 mL suspension 0.25 mg INHALATION BID 30 Days #60 08/07/21 for nebulization (Pulmicort) ml fluticasone propionate 50 1 spray INTRANASAL DAILY 30 Days 08/07/21 mcg/actuation nasal #16 g spray,suspension (Flonase Allergy Relief) hydrochlorothiazide 25 mg tablet 25 mg PO DAILY 90 Days #90 tab 08/07/21 metformin 500 mg tablet 500 mg PO BID 90 Days #180 tab 08/07/21 verapamil 240 mg 24 hr 240 mg PO DAILY 90 Days #90 cap 08/07/21 capsule,extended release amoxicillin 875 mg-potassium 1 tab PO BID #20 tab 09/04/21 clavulanate 125 mg tablet atorvastatin 80 mg tablet 80 mg PO BEDTIME #30 tab 09/04/21 polymyxin B sulfate 10,000 1 drp OPHTHALMIC-LEFT QID 7 Days 09/28/21 unit-trimethoprim 1 mg/mL eye drops #10 ml Allergies Allergy/AdvReac Type Severity Reaction Status Date / Time No Known Allergies Allergy Verified 09/28/21 13:34 Review of Systems Review of Systems: Constitutional : No Fever, No Chills ENT/Mouth : No sore throat, No Rhinorrhea, No Swallowing Difficulty Eyes: No Eye Pain, No Swelling, No Redness Cardiovascular : No Chest Pain, positive SOB, No Orthopnea, no Edema Respiratory : pos Cough, pos Sputum, No Wheezing, positive dyspnea Gastrointestinal : No Nausea, No Vomiting, No Diarrhea, No abdominal Pain, No Hematochezia, No Melena Genitourinary : No Dysuria, No Urinary Frequency, No Hematuria Musculoskeletal : No joint pain, No Myalgias Skin : No Skin Lesions, No rash Neuro : No Weakness, No Numbness, No Dizziness, No Headache Psych : No Anxiety/Panic, No Depression Heme/Lymph: No Bruising, No Lymphadenopathy Endocrine : No Polyuria, No Polydipsia All other systems reviewed and are negative [facility] Past Medical History Attestation statement: The following information was validated with the patient. Medical History Diabetes mellitus Essential hypertension Moderate asthma Oxygen dependent Surgical History History of cholecystectomy History of cholecystectomy History of open reduction and internal fixation (ORIF) procedure History of open reduction and internal fixation (ORIF) procedure History of tubal ligation History of tubal ligation Family History Family History (Updated 09/28/21 @ 13:25 by NIA Dodson) Father Medical history unknown Mother Diabetes Hypertension Father Medical history unknown Mother Hypertension Diabetes Other Substance use disorder Social History Social History Household Members: Spouse Housing: Apartment Do you presently have visiting nurse or other home services: No Alcohol intake: never Patient Tobacco Use Status: Former Tobacco user Tobacco use type: Cigarette Cigarette Packs Per Day: 0.75 Cigarettes Per Day: 15.0 Years Smoked: 31 years e-Cigarette/Vaping Use: Never Used Second Hand Smoke Exposure: Yes Advance Directives: No Advance Directives Information Provided: No Advance Directives Date on File: 08/28/21 Patient : No service: No Current occupational status: other Cognitive needs: Yes (walker/wheelchair/cane) Hearing needs: No Vision needs: Yes Physical Exam Vital Signs: Vital Signs: Last Vital Signs Temp 99.6 F 10/11/21 08:00 Pulse 108 H 10/11/21 09:52 Resp 15 10/11/21 09:52 BP 147/107 H 10/11/21 09:52 Pulse Ox 94 10/11/21 09:52 Oxygen Flow Rate 6 10/11/21 07:27 BMI result Body Mass Index 48.6 Appearance: Alert. Oriented X3. Mild acute distress. Eyes: Pupils equal, round and reactive to light. ENT: Pharynx normal. mucous sounds heard Neck: Normal inspection. Neck supple. CVS: tachycardic heart rate and rhythm. Pulses normal. Respiratory: No respiratory distress. Breath sounds very diminished. Abdomen: Soft and nontender. Skin: Skin warm and dry. Normal skin color. Normal skin turgor. Extremities: No lower extremity edema. No calf ttp Neuro: Oriented X 3. L eye droop. L sided mild weakness Course Course Course Narrative: compensated ABG IV lasix ordered mentating well, Vs improved, responded to hydralazine, will admit for further care zosyn for suspected aspiration MDM - SOB/Dyspnea MDM Narrative Medical decision making narrative: 61 yo female with recent posterior stroke, HTN, asthma O2 dependent but doesn't know how much she is on, hx of aspiration pneumonia, DM who presents with hypoxia and very coarse junky cough. At this time will need labs, CXR, duoneb, O2 supplementation, IV steroids, cultures/lactic acid. Anticipate admission given she is requiring higher O2 levels suspect pneumonia vs asthma exacerbation. Lab Data Result diagrams: 10/11/21 07:51 10/11/21 07:51 Labs: Lab Results 10/11/21 10/11/21 10/11/21 Range/Units 07:50 07:50 07:51 WBC 10.2 (4.8-10.8) X10*3/uL RBC 4.05 L (4.20-5.50) X10*6/uL Hgb 11.6 L (12.0-16.0) g/dl Hct 38.7 (37.0-47.0) % MCV 95.6 (80.0-98.0) fL MCH 28.6 (27.0-33.0) pg MCHC 30.0 L (31.0-35.0) g/dl RDW 14.2 (11.0-16.0) % Plt Count 477 H (160-400) X10*3/uL MPV 9.2 L (9.4-12.3) fL Immature Gran % (Auto) 0.6 H (0.0-0.4) % Neut % (Auto) 77.2 H (45-73) % Lymph % (Auto) 14.2 L (20-40) % Hubbard % (Auto) 7.4 (2-11) % Eos % (Auto) 0.3 (0-4) % Baso % (Auto) 0.3 (0-2) % Lymph # (Auto) 1.4 (1.2-4.9) X10*3/uL Hubbard # (Auto) 0.8 (0.1-1.2) X10*3/uL Eos # (Auto) 0.0 (0.0-0.4) X10*3/uL Baso # (Auto) 0.0 (0.0-0.2) X10*3/uL Abs Immat Gran (auto) 0.06 H (0.00-0.03) X10*3/uL Absolute Neuts (auto) 7.9 (2.0-8.3) x10*3/uL Absolute Nucleated RBC 0.020 H (0.0-0.012) X10*3/uL Nucleated RBC % (auto) 0.2 (0.0-0.2) /100WBC PT 14.2 H (9.9-13.0) SEC INR 1.2 H (0.9-1.1) O2 Saturation % ABG pH at Pt Temp (7.35-7.45) ABG pCO2 at Pt Temp (32-45) mmHg ABG pO2 at Pt Temp (83-108) mmHg ABG HCO3 (22-26) mmol/L ABG Base Excess (Actual) mmol/L VBG pH (7.32-7.43) VBG pCO2 mmHg VBG pO2 mmHg VBG HCO3 (22-26) mmol/L VBG O2 Saturation % VBG Base Excess mmol/L Sodium (135-145) mmol/L Potassium (3.3-5.1) mmol/L Chloride (96-108) mmol/L Carbon Dioxide (22-29) mmol/L Anion Gap (12-20) BUN (9-16) mg/dL Creatinine (0.5-1.4) mg/dL Estim Creat Clear Calc Estimated GFR Random Glucose (60-115) mg/dL Lactic Acid (0.5-2.0) mmol/L Calcium (8.4-10.2) mg/dL Magnesium (1.6-2.6) mg/dL Total Bilirubin (0.0-1.0) mg/dL Direct Bilirubin (0.0-0.5) mg/dL AST (5-31) U/L ALT (0-31) U/L Alkaline Phosphatase (39-117) U/L Troponin I High Sens 39.7 H D (<3.5-17.0) ng/L B-Natriuretic Peptide 1054 H (<100) pg/mL Total Protein (6.5-8.0) g/dL Albumin (3.5-5.0) g/dL Lipase (8-78) U/L COVID-19 (MICHEL) (Negative) COVID-19 Clin Com Influenza Type A (ALISHA) (Negative) Influenza Type B (ALISHA) (Negative) Influenza A & B Note 10/11/21 10/11/21 10/11/21 Range/Units 07:51 07:51 07:51 WBC (4.8-10.8) X10*3/uL RBC (4.20-5.50) X10*6/uL Hgb (12.0-16.0) g/dl Hct (37.0-47.0) % MCV (80.0-98.0) fL MCH (27.0-33.0) pg MCHC (31.0-35.0) g/dl RDW (11.0-16.0) % Plt Count (160-400) X10*3/uL MPV (9.4-12.3) fL Immature Gran % (Auto) (0.0-0.4) % Neut % (Auto) (45-73) % Lymph % (Auto) (20-40) % Hubbard % (Auto) (2-11) % Eos % (Auto) (0-4) % Baso % (Auto) (0-2) % Lymph # (Auto) (1.2-4.9) X10*3/uL Hubbard # (Auto) (0.1-1.2) X10*3/uL Eos # (Auto) (0.0-0.4) X10*3/uL Baso # (Auto) (0.0-0.2) X10*3/uL Abs Immat Gran (auto) (0.00-0.03) X10*3/uL Absolute Neuts (auto) (2.0-8.3) x10*3/uL Absolute Nucleated RBC (0.0-0.012) X10*3/uL Nucleated RBC % (auto) (0.0-0.2) /100WBC PT (9.9-13.0) SEC INR (0.9-1.1) O2 Saturation % ABG pH at Pt Temp (7.35-7.45) ABG pCO2 at Pt Temp (32-45) mmHg ABG pO2 at Pt Temp (83-108) mmHg ABG HCO3 (22-26) mmol/L ABG Base Excess (Actual) mmol/L VBG pH (7.32-7.43) VBG pCO2 mmHg VBG pO2 mmHg VBG HCO3 (22-26) mmol/L VBG O2 Saturation % VBG Base Excess mmol/L Sodium 144 (135-145) mmol/L Potassium 4.8 D (3.3-5.1) mmol/L Chloride 97 (96-108) mmol/L Carbon Dioxide 41 H* (22-29) mmol/L Anion Gap 11 L (12-20) BUN 19 H (9-16) mg/dL Creatinine 0.69 (0.5-1.4) mg/dL Estim Creat Clear Calc 95.7 Estimated GFR > 60 Random Glucose 121 H (60-115) mg/dL Lactic Acid 0.6 (0.5-2.0) mmol/L Calcium 9.0 (8.4-10.2) mg/dL Magnesium 2.0 (1.6-2.6) mg/dL Total Bilirubin 0.4 (0.0-1.0) mg/dL Direct Bilirubin 0.2 (0.0-0.5) mg/dL AST 35 H D (5-31) U/L ALT 55 H (0-31) U/L Alkaline Phosphatase 114 D (39-117) U/L Troponin I High Sens (<3.5-17.0) ng/L B-Natriuretic Peptide Cancelled (<100) pg/mL Total Protein 7.1 (6.5-8.0) g/dL Albumin 3.8 (3.5-5.0) g/dL Lipase 51 (8-78) U/L COVID-19 (MICHEL) (Negative) COVID-19 Clin Com Influenza Type A (ALISHA) (Negative) Influenza Type B (ALISHA) (Negative) Influenza A & B Note 10/11/21 10/11/21 10/11/21 Range/Units 07:51 07:54 08:18 WBC (4.8-10.8) X10*3/uL RBC (4.20-5.50) X10*6/uL Hgb (12.0-16.0) g/dl Hct (37.0-47.0) % MCV (80.0-98.0) fL MCH (27.0-33.0) pg MCHC (31.0-35.0) g/dl RDW (11.0-16.0) % Plt Count (160-400) X10*3/uL MPV (9.4-12.3) fL Immature Gran % (Auto) (0.0-0.4) % Neut % (Auto) (45-73) % Lymph % (Auto) (20-40) % Hubbard % (Auto) (2-11) % Eos % (Auto) (0-4) % Baso % (Auto) (0-2) % Lymph # (Auto) (1.2-4.9) X10*3/uL Hubbard # (Auto) (0.1-1.2) X10*3/uL Eos # (Auto) (0.0-0.4) X10*3/uL Baso # (Auto) (0.0-0.2) X10*3/uL Abs Immat Gran (auto) (0.00-0.03) X10*3/uL Absolute Neuts (auto) (2.0-8.3) x10*3/uL Absolute Nucleated RBC (0.0-0.012) X10*3/uL Nucleated RBC % (auto) (0.0-0.2) /100WBC PT (9.9-13.0) SEC INR (0.9-1.1) O2 Saturation 89.0 % ABG pH at Pt Temp 7.36 (7.35-7.45) ABG pCO2 at Pt Temp 85 H* (32-45) mmHg ABG pO2 at Pt Temp 68 L (83-108) mmHg ABG HCO3 48 H (22-26) mmol/L ABG Base Excess (Actual) 19.1 mmol/L VBG pH 7.32 (7.32-7.43) VBG pCO2 86 mmHg VBG pO2 77 mmHg VBG HCO3 45 H (22-26) mmol/L VBG O2 Saturation 92.0 % VBG Base Excess 15.2 mmol/L Sodium (135-145) mmol/L Potassium (3.3-5.1) mmol/L Chloride (96-108) mmol/L Carbon Dioxide (22-29) mmol/L Anion Gap (12-20) BUN (9-16) mg/dL Creatinine (0.5-1.4) mg/dL Estim Creat Clear Calc Estimated GFR Random Glucose (60-115) mg/dL Lactic Acid (0.5-2.0) mmol/L Calcium (8.4-10.2) mg/dL Magnesium (1.6-2.6) mg/dL Total Bilirubin (0.0-1.0) mg/dL Direct Bilirubin (0.0-0.5) mg/dL AST (5-31) U/L ALT (0-31) U/L Alkaline Phosphatase (39-117) U/L Troponin I High Sens (<3.5-17.0) ng/L B-Natriuretic Peptide (<100) pg/mL Total Protein (6.5-8.0) g/dL Albumin (3.5-5.0) g/dL Lipase (8-78) U/L COVID-19 (MICHEL) Negative (Negative) COVID-19 Clin Com See Note Influenza Type A (ALISHA) (Negative) Influenza Type B (ALISHA) (Negative) Influenza A & B Note 10/11/21 Range/Units 09:24 WBC (4.8-10.8) X10*3/uL RBC (4.20-5.50) X10*6/uL Hgb (12.0-16.0) g/dl Hct (37.0-47.0) % MCV (80.0-98.0) fL MCH (27.0-33.0) pg MCHC (31.0-35.0) g/dl RDW (11.0-16.0) % Plt Count (160-400) X10*3/uL MPV (9.4-12.3) fL Immature Gran % (Auto) (0.0-0.4) % Neut % (Auto) (45-73) % Lymph % (Auto) (20-40) % Hubbard % (Auto) (2-11) % Eos % (Auto) (0-4) % Baso % (Auto) (0-2) % Lymph # (Auto) (1.2-4.9) X10*3/uL Hubbard # (Auto) (0.1-1.2) X10*3/uL Eos # (Auto) (0.0-0.4) X10*3/uL Baso # (Auto) (0.0-0.2) X10*3/uL Abs Immat Gran (auto) (0.00-0.03) X10*3/uL Absolute Neuts (auto) (2.0-8.3) x10*3/uL Absolute Nucleated RBC (0.0-0.012) X10*3/uL Nucleated RBC % (auto) (0.0-0.2) /100WBC PT (9.9-13.0) SEC INR (0.9-1.1) O2 Saturation % ABG pH at Pt Temp (7.35-7.45) ABG pCO2 at Pt Temp (32-45) mmHg ABG pO2 at Pt Temp (83-108) mmHg ABG HCO3 (22-26) mmol/L ABG Base Excess (Actual) mmol/L VBG pH (7.32-7.43) VBG pCO2 mmHg VBG pO2 mmHg VBG HCO3 (22-26) mmol/L VBG O2 Saturation % VBG Base Excess mmol/L Sodium (135-145) mmol/L Potassium (3.3-5.1) mmol/L Chloride (96-108) mmol/L Carbon Dioxide (22-29) mmol/L Anion Gap (12-20) BUN (9-16) mg/dL Creatinine (0.5-1.4) mg/dL Estim Creat Clear Calc Estimated GFR Random Glucose (60-115) mg/dL Lactic Acid (0.5-2.0) mmol/L Calcium (8.4-10.2) mg/dL Magnesium (1.6-2.6) mg/dL Total Bilirubin (0.0-1.0) mg/dL Direct Bilirubin (0.0-0.5) mg/dL AST (5-31) U/L ALT (0-31) U/L Alkaline Phosphatase (39-117) U/L Troponin I High Sens (<3.5-17.0) ng/L B-Natriuretic Peptide (<100) pg/mL Total Protein (6.5-8.0) g/dL Albumin (3.5-5.0) g/dL Lipase (8-78) U/L COVID-19 (MICHEL) (Negative) COVID-19 Clin Com Influenza Type A (ALISHA) Negative (Negative) Influenza Type B (ALISHA) Negative (Negative) Influenza A & B Note See Note ECG Data Attestation: I personally reviewed and interpreted this ECG as follows: ECG interpretation date: 10/11/21 ECG interpretation time: 07:42 Interpretation: Rate: 117 Rhythm: sinus tachycardia with PACs [place]: normal Normal P waves. Normal NOAH. Normal QRS complex. ST T wave : nonspecific, no ALLISON qTC: normal prior studies: no acute ischemia The study has been interpreted contemporaneously by me. Critical Care Time Critical Care Time Critical Care Time: Yes Total Critical Care Time: 60 Attestation: nebs, IV lasix, IV BP medications, treatment of hypoxia, repeat assessments, review of records I attest to this time spent taking care of the patient Discharge Plan Discharge Clinical Impression: Hypoxia, Aspiration pneumonia, Moderate asthma, Fever, Chronic hypercapnic respiratory failure, Congestive heart failure Patient Disposition: Admitted As Inpatient Prescriptions: No Action albuterol sulfate 2.5 mg /3 mL (0.083 %) solution for nebulization 1 amp inhalation Q4H PRN (Reason: wheezing) 0RF atorvastatin 80 mg Tablet 80 mg PO BEDTIME Qty: 30 0RF amoxicillin-pot clavulanate 875-125 mg tablet 1 tab PO BID Qty: 20 0RF lisinopril 20 mg tablet 1 tab PO DAILY 0RF lisinopril 10 mg tablet 1 tab PO DAILY 0RF albuterol sulfate [ProAir HFA] 90 mcg/actuation HFA aerosol inhaler 2 puff PO Q6H PRN (Reason: wheezing) 0RF Combivent Respimat 20-100 mcg/actuation mist 1 puff INHALATION QID 0RF verapamil 240 mg capsule,ext rel. pellets 24 hr 240 mg PO DAILY 90 Days Qty: 90 3RF metformin 500 mg tablet 500 mg PO BID 90 Days Qty: 180 3RF hydrochlorothiazide 25 mg tablet 25 mg PO DAILY 90 Days Qty: 90 3RF fluticasone propionate [Flonase Allergy Relief] 50 mcg/actuation spray,suspension 1 spray intranasal DAILY 30 Days Qty: 16 6RF Rx Instructions: administer into each nostril budesonide [Pulmicort] 0.5 mg/2 mL suspension for nebulization 0.25 mg inhalation BID 30 Days Qty: 60 6RF acetaminophen [Tylenol 8 Hour] 650 mg tablet extended release 650 mg PO Q8H PRN (Reason: pain) 30 Days Qty: 90 11RF polymyxin B sulf-trimethoprim 10,000 unit- 1 mg/mL drops 1 drp ophthalmic-Left QID 7 Days Qty: 10 0RF Flovent HFA 44 mcg/actuation HFA aerosol inhaler 2 puff inhalation BID 0RF Rx Instructions: administer with spacer lidocaine 5 % adhesive patch,medicated 1 patch topical DAILY 0RF Rx Instructions: leave on most painful area for up to 12 hrs thiamine HCl (vitamin B1) 100 mg tablet 50 mg PO DAILY 0RF sennosides [senna] 8.6 mg tablet 17.2 mg PO DAILY 0RF
--- NOTE | 2021-10-11 07:27 | ECG_ITS ---
Test Reason : sob Blood Pressure : / mmHG Vent. Rate : 117 BPM Atrial Rate : 117 BPM P-R Int : 130 ms QRS Dur : 072 ms QT Int : 314 ms P-R-T Axes : 063 000 029 degrees QTc Int : 438 ms Sinus tachycardia with Premature atrial complexes Nonspecific ST and T wave abnormality Abnormal ECG When compared with ECG of 31-AUG-2021 08:17, T wave inversion no longer evident in Lateral leads Referred By: Stephanie Clarke Electronically Signed By:VON MARTINEZ MD
[2021-10-11] MEDS: Albuterol/Iprat 2.5/0.5MG 3 ML AMPUL.NEB INHALE (07:43)
[2021-10-11] MEDS: Albuterol Sulfate (0.083%) 2.5 MG/3 ML VIAL.NEB INHALE (07:43)
[2021-10-11] MEDS: methylPREDNISolone Sod Succ 125 MG/2 ML VIAL IVPUSH (07:56)
[2021-10-11 07:59] LABS: MANUAL DIFF FLAG NO
[2021-10-11 08:01] LABS: VBG Base Excess 15.2 mmol/L; VBG HCO3 45 mmol/L (22-26); VBG pCO2 86 mmHg; VBG pH 7.32 (7.32-7.43); VBG pO2 77 mmHg
[2021-10-11 08:02] LABS: Venous Blood Gas Refer to POC result
[2021-10-11 08:04] LABS: INTERNATIONAL NORM RATIO 1.2 (0.9-1.1); Prothrombin Time 14.2 SEC (9.9-13.0)
[2021-10-11 08:05] LABS: Basophils Percent Auto 0.3 % (0-2); Eosinophils Percent Auto 0.3 % (0-4); Hematocrit 38.7 % (37.0-47.0); Hemoglobin 11.6 g/dl (12.0-16.0); Imm Gran Abs Auto 0.06 X10*3/uL (0.00-0.03); Imm Gran Pct Auto 0.6 % (0.0-0.4); Lymphocytes Absolute Auto 1.4 X10*3/uL (1.2-4.9); Lymphocytes Percent Auto 14.2 % (20-40); Mean Corpuscular Hemoglobin 28.6 pg (27.0-33.0); Mean Corpuscular Volume 95.6 fL (80.0-98.0); Mean Platelet Volume 9.2 fL (9.4-12.3); Monocytes Absolute Auto 0.8 X10*3/uL (0.1-1.2); Monocytes Percent Auto 7.4 % (2-11); NRBC Pct Auto 0.2 /100WBC (0.0-0.2); Neutrophils Absolute Auto 7.9 x10*3/uL (2.0-8.3); Neutrophils Percent Auto 77.2 % (45-73); Platelet Count 477 X10*3/uL (160-400); Red Blood Count 4.05 X10*6/uL (4.20-5.50); Red Cell Distribution Width 14.2 % (11.0-16.0); White Blood Count 10.2 X10*3/uL (4.8-10.8)
[2021-10-11 08:09] LABS: Lactic Acid 0.6 mmol/L (0.5-2.0)
[2021-10-11 08:21] LABS: Alanine Aminotransferase 55 U/L (0-31); Albumin Level 3.8 g/dL (3.5-5.0); Alkaline Phosphatase 114 U/L (39-117); Anion Gap 11 (12-20); Aspartate Amino Transferase 35 U/L (5-31); Bilirubin Direct 0.2 mg/dL (0.0-0.5); Bilirubin Total 0.4 mg/dL (0.0-1.0); Blood Urea Nitrogen 19 mg/dL (9-16); Carbon Dioxide 41 mmol/L (22-29); Chloride 97 mmol/L (96-108); Creatinine Clr Calc Pharmacy 95.7; Estimated Glomerular Filt Rate > 60; Glucose Random 121 mg/dL (60-115); Lipase 51 U/L (8-78); Potassium 4.8 mmol/L (3.3-5.1); Sodium 144 mmol/L (135-145); Total Protein 7.1 g/dL (6.5-8.0)
[2021-10-11 08:24] LABS: B Type Natriuretic Peptide 1054 pg/mL (<100); Troponin-I High Sensitivity 39.7 ng/L (<3.5-17.0)
[2021-10-11 08:27] LABS: ABG Base Excess 19.1 mmol/L; ABG HCO3 48 mmol/L (22-26); ABG pCO2 85 mmHg (32-45); ABG pH 7.36 (7.35-7.45); ABG pO2 68 mmHg (83-108)
[2021-10-11 08:39] LABS: COVID-19 Test Negative (Negative)
[2021-10-11] MEDS: Furosemide 40 MG/4 ML VIAL IVPUSH (08:42)
[2021-10-11] MEDS: Piperacillin Sodium/Tazobactam 3.375 GM in 0.9 % Sodium Chloride 50 ML IV (09:36)
[2021-10-11 09:37] LABS: ABG Refer to POC result
[2021-10-11] MEDS: hydrALAZINE HCl 20 MG/ML VIAL 10 MG IVPUSH (09:37)
[2021-10-11 09:43] LABS: Influenza A Negative (Negative); Influenza B2 Negative (Negative)
[2021-10-11] MEDS: Acetaminophen 325 MG TABLET 650 MG PO (09:52)
--- NOTE | 2021-10-11 11:04 | PHA.MEDREC ---
Pharmacy Consult ? Medication Reconciliation Pharmacy has completed the medication reconciliation. Pt very poor historian. Unsure of most medications I named, at bedside also unsure. She states she takes HCTZ 25mg BID but has not filled since April 2021. Unsure of which dose of lisinopril, pt just stated it's a tiny pill when I tried to clarify 10mg vs 20mg. Recent claim history suggests that she should have been taking 20mg as of September 2021, but she had leftovers from a 90 day supply earlier this year so I believe she may still be taking the 10mg. Updated medications based on most recent claim hsitory. Ana Espinoza, PharmD
[2021-10-11 14:56] LABS: Glucose, Whole Blood 169 mg/dL (60-115)
[2021-10-11] MEDS: Enoxaparin Sodium 40 MG/0.4 ML SYRINGE SUBCUT (15:28)
[2021-10-11] MEDS: Piperacillin Sodium/Tazobactam 4.5 GM in 0.9 % Sodium Chloride 100 ML IV ×2 (15:28→21:29)
--- NOTE | 2021-10-11 16:11 | PM.IMHP ---
History of Present Illness Date of Service: 10/11/21 Chief Complaint: Hypoxia respiratory failure 61 yo female with recent posterior stroke, HTN, asthma O2 dependent but doesn't know how much she is on, hx of aspiration pneumonia, DM, reports she has had a cough for a few days. Family found her with blue lips this morning - EMS did not report she was on oxygen and the patient states she took it off around 6am this morning becasue I only wear it at night. EMS notes her O2 sats were in the 70s and put on NRB here she is low 90s on 6L with a very coarse junky cough. MD elicited complaint: shortness of breath and cough ER [facility] Supplemental O2 with improvement in O2 saturation. Chronic CO2 retainer. Exam consistent with aspiration pneumonia. Will admit for treatment of same Review of Systems Review of Systems: Denies chest pain Admits to shortness of breath Denies nausea vomiting diarrhea Denies fever chills PMFSH Medical History Diabetes mellitus Essential hypertension Moderate asthma Oxygen dependent Family History Father Medical history unknown Mother Diabetes Hypertension Father Medical history unknown Mother Hypertension Diabetes Other Substance use disorder Surgical History History of cholecystectomy History of cholecystectomy History of open reduction and internal fixation (ORIF) procedure History of open reduction and internal fixation (ORIF) procedure History of tubal ligation History of tubal ligation Social History Household Members: Spouse Housing: Apartment Do you presently have visiting nurse or other home services: No Alcohol intake: former Patient Tobacco Use Status: Former Tobacco user Tobacco use type: Cigarette Cigarette Packs Per Day: 0.75 Cigarettes Per Day: 15.0 Years Smoked: 31 years e-Cigarette/Vaping Use: Never Used Second Hand Smoke Exposure: Yes Use of substances other than those prescribed or required for medical reasons: No Advance Directives: No Advance Directives Information Provided: No Advance Directives Date on File: 08/28/21 Patient : No service: No Current occupational status: other Cognitive needs: Yes (walker/wheelchair/cane) Hearing needs: No Vision needs: Yes Meds Allergies Allergy/AdvReac Type Severity Reaction Status Date / Time No Known Allergies Allergy Verified 09/28/21 13:34 Active Medications: Current Medications Acetaminophen (Acetaminophen 325 Mg Tablet) 650 mg PO Q8H PRN PRN Reason: pain Acetaminophen (Acetaminophen 325 Mg Tablet) 650 mg PO Q6H PRN PRN Reason: Pain, Mild (Pain Scale 1-3) Acetaminophen/Butalbital/Caffeine (Butalb/Acetamin/Caff 50/325/40 Tablet) 1 tab PO Q4H PRN PRN Reason: Headache Albuterol Sulfate (Albuterol Sulfate (0.083%) 2.5 Mg/3 Ml Vial.Neb) 2.5 mg INHALE Q4H PRN PRN Reason: wheezing Albuterol Sulfate (Albuterol Sulfate 90 Mcg 8 Gm Inhaler) 2 puff INHALE Q6H PRN PRN Reason: wheezing Aspirin (Aspirin Enteric Coated 81 Mg Tablet.) 81 mg PO DAILY [facility] Atorvastatin Calcium (Atorvastatin Calcium 80 Mg Tablet) 80 mg PO BEDTIME [facility] Enoxaparin Sodium (Enoxaparin Sodium 40 Mg/0.4 Ml Syringe) 40 mg SUBCUT Q24H [facility] Last Admin: 10/11/21 15:28 Dose: 40 mg Documented by: Fluticasone Propionate (Fluticasone Propionate Nasal 16 Gm [place]) 1 spray NOSTRIL-B DAILY [facility] Hydralazine HCl (Hydralazine Hcl 10 Mg Tablet) 10 mg PO TID [facility]; Protocol Piperacillin Sod/Tazobactam (Sod 4.5 gm/ Sodium Chloride) 100 mls @ 200 mls/hr IV Q6H [facility] Last Admin: 10/11/21 15:28 Dose: 200 mls/hr Documented by: Lidocaine (Lidocaine 4 % Patch Adh..Patch) 1 patch TRANSDERMA DAILY [facility] Lisinopril (Lisinopril 10 Mg Tablet) 10 mg PO DAILY [facility]; Protocol Metformin HCl (Metformin Hcl 500 Mg Tablet) 500 mg PO BID [facility] Patient Own Medication (Flovent 44mcg) 2 each INHALE BID [facility] Patient Own Medication ( Combivent 20mcg/100mcg) 1 each INHALE QID [facility] Patient Own Medication ( Polymixin B/Trimethoprim Opthalmic) 1 each EYE-LEFT QID [facility] Pharmacy Consult (Consult Rx Perform Med Rec) 1 each MISCELLANE ONCE PRN PRN Reason: Consult order Senna (Sennosides 8.6 Mg Tablet) 17.2 mg PO DAILY [facility] Sodium Chloride (0.9 % Sodium Chloride Flush 3 Ml Syringe) 3 ml IVFLUSH QSHIFT [facility] Thiamine HCl (Thiamine Hcl 100 Mg Tablet) 50 mg PO DAILY [facility] Verapamil HCl (Verapamil Hcl Sr 240 Mg Tablet.Er) 240 mg PO DAILY [facility]; Protocol Home Medications Medication Instructions Recorded Confirmed Last Taken Type albuterol sulfate 1 amp INHALATION Q4H PRN 08/27/21 10/11/21 Unknown History fluticasone propionate 44 2 puff INHALATION BID 09/28/21 10/11/21 10/10/21 History mcg/actuation HFA aerosol inhaler (Flovent HFA) lidocaine 5 % topical patch 1 patch TOPICAL DAILY 09/28/21 10/11/21 10/10/21 History sennosides 8.6 mg tablet (senna) 17.2 mg PO DAILY tab 09/28/21 10/11/21 10/10/21 History thiamine HCl (vitamin B1) 100 mg 50 mg PO DAILY 09/28/21 10/11/21 10/10/21 History tablet albuterol sulfate 90 mcg/actuation 2 puff PO Q6H PRN 10/11/21 10/11/21 Unknown History aerosol inhaler (ProAir HFA) aspirin 81 mg tablet,delayed 81 mg PO DAILY 10/11/21 10/11/21 10/10/21 History release ipratropium 20 mcg-albuterol 100 1 puff INHALATION QID 10/11/21 10/11/21 10/10/21 History mcg/actuation mist for inhalation (Combivent Respimat) lisinopril 10 mg tablet 1 tab PO DAILY 10/11/21 10/11/21 10/10/21 History Physical Exam Vital Signs and Narrative: Vital Signs: Last Vital Signs Temp 99.6 F 10/11/21 08:00 Pulse 97 10/11/21 14:53 Resp 16 10/11/21 14:53 BP 163/100 H 10/11/21 14:53 Pulse Ox 93 10/11/21 14:53 Oxygen Flow Rate 6 10/11/21 07:27 BMI result Body Mass Index 48.6 Const: Other: Awake alert no acute distress Resp: Other: Coarse rhonchi throughout with scattered wheezes Cardio: Other: No S4; positive S1-S2; no S3 murmurs rubs or gallops GI: Other: Soft nontender nondistended with normoactive bowel sounds Extrem: Other: No edema bilaterally Results Labs CBC and Chem 7: 10/11/21 07:51 10/11/21 07:51 Labs: Laboratory Results - last 24 hr 10/11/21 10/11/21 10/11/21 07:50 07:50 07:51 MCV 95.6 MCH 28.6 MCHC 30.0 L RDW 14.2 Plt Count 477 H MPV 9.2 L Immature Gran % (Auto) 0.6 H Neut % (Auto) 77.2 H Lymph % (Auto) 14.2 L [place] % (Auto) 7.4 Eos % (Auto) 0.3 Baso % (Auto) 0.3 Lymph # (Auto) 1.4 [place] # (Auto) 0.8 Eos # (Auto) 0.0 Baso # (Auto) 0.0 Abs Immat Gran (auto) 0.06 H Absolute Neuts (auto) 7.9 Absolute Nucleated RBC 0.020 H Nucleated RBC % (auto) 0.2 PT 14.2 H INR 1.2 H O2 Saturation ABG pH at Pt Temp ABG pCO2 at Pt Temp ABG pO2 at Pt Temp ABG HCO3 ABG Base Excess (Actual) VBG pH VBG pCO2 VBG pO2 VBG HCO3 VBG O2 Saturation VBG Base Excess Anion Gap Estim Creat Clear Calc Estimated GFR POC Glucose Random Glucose Lactic Acid Calcium Magnesium Total Bilirubin Direct Bilirubin AST ALT Alkaline Phosphatase Troponin I High Sens 39.7 H D B-Natriuretic Peptide 1054 H Total Protein Albumin Lipase COVID-19 (MICHEL) COVID-19 Clin Com Influenza Type A (ALISHA) Influenza Type B (ALISHA) Influenza A & B Note 10/11/21 10/11/21 10/11/21 07:51 07:51 07:51 MCV MCH MCHC RDW Plt Count MPV Immature Gran % (Auto) Neut % (Auto) Lymph % (Auto) [place] % (Auto) Eos % (Auto) Baso % (Auto) Lymph # (Auto) [place] # (Auto) Eos # (Auto) Baso # (Auto) Abs Immat Gran (auto) Absolute Neuts (auto) Absolute Nucleated RBC Nucleated RBC % (auto) PT INR O2 Saturation ABG pH at Pt Temp ABG pCO2 at Pt Temp ABG pO2 at Pt Temp ABG HCO3 ABG Base Excess (Actual) VBG pH VBG pCO2 VBG pO2 VBG HCO3 VBG O2 Saturation VBG Base Excess Anion Gap 11 L Estim Creat Clear Calc 95.7 Estimated GFR > 60 POC Glucose Random Glucose 121 H Lactic Acid 0.6 Calcium 9.0 Magnesium 2.0 Total Bilirubin 0.4 Direct Bilirubin 0.2 AST 35 H D ALT 55 H Alkaline Phosphatase 114 D Troponin I High Sens B-Natriuretic Peptide Cancelled Total Protein 7.1 Albumin 3.8 Lipase 51 COVID-19 (MICHEL) COVID-19 Clin Com Influenza Type A (ALISHA) Influenza Type B (ALISHA) Influenza A & B Note 10/11/21 10/11/21 10/11/21 07:51 07:54 08:18 MCV MCH MCHC RDW Plt Count MPV Immature Gran % (Auto) Neut % (Auto) Lymph % (Auto) [place] % (Auto) Eos % (Auto) Baso % (Auto) Lymph # (Auto) [place] # (Auto) Eos # (Auto) Baso # (Auto) Abs Immat Gran (auto) Absolute Neuts (auto) Absolute Nucleated RBC Nucleated RBC % (auto) PT INR O2 Saturation 89.0 ABG pH at Pt Temp 7.36 ABG pCO2 at Pt Temp 85 H* ABG pO2 at Pt Temp 68 L ABG HCO3 48 H ABG Base Excess (Actual) 19.1 VBG pH 7.32 VBG pCO2 86 VBG pO2 77 VBG HCO3 45 H VBG O2 Saturation 92.0 VBG Base Excess 15.2 Anion Gap Estim Creat Clear Calc Estimated GFR POC Glucose Random Glucose Lactic Acid Calcium Magnesium Total Bilirubin Direct Bilirubin AST ALT Alkaline Phosphatase Troponin I High Sens B-Natriuretic Peptide Total Protein Albumin Lipase COVID-19 (MICHEL) Negative COVID-19 Clin Com See Note Influenza Type A (ALISHA) Influenza Type B (ALISHA) Influenza A & B Note 10/11/21 10/11/21 09:24 14:53 MCV MCH MCHC RDW Plt Count MPV Immature Gran % (Auto) Neut % (Auto) Lymph % (Auto) [place] % (Auto) Eos % (Auto) Baso % (Auto) Lymph # (Auto) [place] # (Auto) Eos # (Auto) Baso # (Auto) Abs Immat Gran (auto) Absolute Neuts (auto) Absolute Nucleated RBC Nucleated RBC % (auto) PT INR O2 Saturation ABG pH at Pt Temp ABG pCO2 at Pt Temp ABG pO2 at Pt Temp ABG HCO3 ABG Base Excess (Actual) VBG pH VBG pCO2 VBG pO2 VBG HCO3 VBG O2 Saturation VBG Base Excess Anion Gap Estim Creat Clear Calc Estimated GFR POC Glucose 169 H Random Glucose Lactic Acid Calcium Magnesium Total Bilirubin Direct Bilirubin AST ALT Alkaline Phosphatase Troponin I High Sens B-Natriuretic Peptide Total Protein Albumin Lipase COVID-19 (MICHEL) COVID-19 Clin Com Influenza Type A (ALISHA) Negative Influenza Type B (ALISHA) Negative Influenza A & B Note See Note Imaging Radiologist's Impressions: Impressions Chest X-Ray 10/11/21 08:42 IMPRESSION: Right lung disease with probable pleural effusion. Assessment and Plan (1) Chronic hypercapnic respiratory failure: Status: Acute (2) Aspiration pneumonia: Qualifiers: Aspiration pneumonia type: unspecified Laterality: right Lung location: lower lobe of lung Qualified Code(s): J69.0 - Pneumonitis due to inhalation of food and vomit Status: Acute (3) Moderate asthma: Qualifiers: Asthma complication type: with acute exacerbation Asthma persistence: persistent Qualified Code(s): J45.41 - Moderate persistent asthma with (acute) exacerbation Status: Acute (4) Essential hypertension: Status: Acute (5) Diabetes mellitus: Qualifiers: Diabetes mellitus type: type 2 Diabetes mellitus broadcast operations manager insulin use: without broadcast operations manager use Diabetes mellitus complication status: without complication Qualified Code(s): E11.9 - Type 2 diabetes mellitus without complications Status: Acute Plan 61.-year-old female with known history of chronic hypercapnic respiratory failure and nocturnal hypoxemia presents today with respiratory failure and worsening of her hypercapnia. Patient's mentation improved with supplemental O2. Upon discharge last admission, patient was sent on nocturnal oxygen however sleep study was strongly recommended for utilization of BiPAP. Patient said she was discharged home and did fine for approximately 1 week and then started to become somnolent and weak. 1. Hypercapnic respiratory failure -BiPAP 10/5 overnight -VBGs and a.m. -add Diamox 250 b.i.d 2. Aspiration pneumonia and backdrop of mild persistent asthma -Zosyn -pulse dose steroids -DuoNebs q.4 hours while awake -supplemental O2 to maintain O2 sat greater than 88% 3. Essential hypertension -poorly control -add hydralazine 10 mg t.i.d.. . . Adjust as indicated -next step would be to increase lisinopril 4. Diabetes type 2 -continue outpatient therapies -lispro correctional scale -ADA diet Who require 1-2 midnights going forward for treatment of hypercapnic respiratory failure and aspiration pneumonia with IV antibiotics. This cannot be achieved in the lesser acute setting Quality Stroke Does the patient have a stroke diagnosis?: No VTE Prior VTE?: No VTE Risk Level:: Medical - moderate - high VTE Device Contraindication: Treatment Not Indicated VTE Drug Contraindication: N/A - Med Ordered
--- NOTE | 2021-10-11 17:00 | PC.NURSE ---
zosyn was finished being infused when this RN started his shift
[2021-10-11] MEDS: hydrALAZINE HCl 10 MG TABLET PO ×2 (17:30→21:25)
[2021-10-11] MEDS: 0.9 % Sodium Chloride Flush 3 ML SYRINGE IVFLUSH (19:02)
--- NOTE | 2021-10-11 20:09 | PC.NURSE ---
pharmacy contacted regarding meds that were verified but are not present in the ER. Rx states that the meds are still upstairs, and they were waiting until pt went to the floor, Rx informed pt is admitted down here and we need the meds as they are ordered. Rx will send meds down
--- NOTE | 2021-10-11 20:40 | MHC.CM.PN ---
Attempted to meet with patient for d/c planning with [employer] developer. Pt sleeping. Unable to wake. Record review completed. [place] [facility] [place] CVA. Discharged to [facility] for PT. Lives with . HCP/son Jesus Chowdhury ([phone]). HCP is on file. Pt is Oxygen dependent at home. Uses [facility]. Unsure of home services at this time. Pt has Pfizer, but no booster per records. Pt is admitted with aspiration pneumonia. No IMM necessary. CM will need to meet with patient when she is awake. CM to follow for d/c needs.
[2021-10-11 21:00] LABS: Glucose, Whole Blood 140 mg/dL (60-115)
[2021-10-11] MEDS: metFORMIN HCl 500 MG TABLET PO (21:24)
[2021-10-11] MEDS: Atorvastatin Calcium 80 MG TABLET PO (21:25)
--- NOTE | 2021-10-11 21:57 | PC.NURSE ---
pt compliant with med administration. pt able to swallow pills whole with water but after had a gurgly voice. pt upright at this time, SPO2 decreased to 90% on 3lpm, O2 increased to 4 lpm where pt is 93%
[2021-10-11 22:17] LABS: Venous Blood Gas Refer to POC result
[2021-10-11 22:17] LABS: VBG Base Excess 20.3 mmol/L; VBG HCO3 51 mmol/L (22-26); VBG pCO2 89 mmHg; VBG pH 7.36 (7.32-7.43); VBG pO2 112 mmHg
[2021-10-11] MEDS: acetaZOLAMIDE 250 MG TABLET PO (22:24)
[2021-10-12] VITALS (9 sets, daily range): BP systolic 102–126; BP diastolic 60–91; PULSE 74–106; RESP 10–21; TEMP 36.2–37.1; O2SAT 92–98
[2021-10-12] MEDS: 0.9 % Sodium Chloride Flush 3 ML SYRINGE IVFLUSH ×3 (00:45→22:04)
[2021-10-12] MEDS: Piperacillin Sodium/Tazobactam 4.5 GM in 0.9 % Sodium Chloride 100 ML IV ×4 (03:39→21:37)
[2021-10-12 06:55] LABS: MANUAL DIFF FLAG NO
[2021-10-12 06:59] LABS: Basophils Percent Auto 0.2 % (0-2); Eosinophils Percent Auto 0.1 % (0-4); Hematocrit 36.7 % (37.0-47.0); Imm Gran Abs Auto 0.08 X10*3/uL (0.00-0.03); Imm Gran Pct Auto 0.7 % (0.0-0.4); Lymphocytes Percent Auto 16.4 % (20-40); Mean Corpuscular Hemoglobin 28.7 pg (27.0-33.0); Mean Corpuscular Volume 95.8 fL (80.0-98.0); Mean Platelet Volume 9.5 fL (9.4-12.3); Monocytes Absolute Auto 1.1 X10*3/uL (0.1-1.2); Monocytes Percent Auto 8.9 % (2-11); NRBC Pct Auto 0.2 /100WBC (0.0-0.2); Neutrophils Percent Auto 73.7 % (45-73); Platelet Count 423 X10*3/uL (160-400); Red Blood Count 3.83 X10*6/uL (4.20-5.50); Red Cell Distribution Width 14.4 % (11.0-16.0); White Blood Count 12.2 X10*3/uL (4.8-10.8)
[2021-10-12 07:01] LABS: VBG Base Excess 21.3 mmol/L; VBG HCO3 51 mmol/L (22-26); VBG pCO2 88 mmHg; VBG pH 7.37 (7.32-7.43); VBG pO2 75 mmHg
[2021-10-12 07:04] LABS: Venous Blood Gas Refer to POC result
[2021-10-12 07:19] LABS: Alanine Aminotransferase 40 U/L (0-31); Albumin Level 3.5 g/dL (3.5-5.0); Alkaline Phosphatase 90 U/L (39-117); Anion Gap 10 (12-20); Aspartate Amino Transferase 17 U/L (5-31); Bilirubin Total 0.5 mg/dL (0.0-1.0); Blood Urea Nitrogen 22 mg/dL (9-16); Calcium 8.8 mg/dL (8.4-10.2); Carbon Dioxide 42 mmol/L (22-29); Chloride 96 mmol/L (96-108); Creatinine Clr Calc Pharmacy 87.7; Estimated Glomerular Filt Rate > 60; Glucose Fasting 88 mg/dL (60-99); Potassium 4.3 mmol/L (3.3-5.1); Sodium 144 mmol/L (135-145); Total Protein 6.4 g/dL (6.5-8.0)
[2021-10-12 07:21] LABS: Glucose, Whole Blood 92 mg/dL (60-115)
[2021-10-12] MEDS: VerapamiL HCL SR 240 MG TABLET.ER PO (09:35)
[2021-10-12] MEDS: acetaZOLAMIDE 250 MG TABLET PO ×2 (09:35→21:37)
[2021-10-12] MEDS: Thiamine HCL 100 MG TABLET 50 MG PO (09:35)
[2021-10-12] MEDS: lisinopriL 10 MG TABLET PO (09:35)
[2021-10-12] MEDS: hydrALAZINE HCl 10 MG TABLET PO ×2 (09:35→21:37)
[2021-10-12] MEDS: Sennosides 8.6 MG TABLET 17.2 MG PO (09:35)
[2021-10-12] MEDS: metFORMIN HCl 500 MG TABLET PO ×2 (09:35→21:37)
[2021-10-12] MEDS: Aspirin Enteric Coated 81 MG TABLET.DR PO (09:36)
--- NOTE | 2021-10-12 11:03 | PC.NURSE ---
Pt resting in hospital bed. VSS. Medicated per AUG. family at bedside. pt with no complaints of pain at this time. No chest pain or SOB. Pt on 4L NC. O2 sats 94%. Belongings and callbell within reach.
--- NOTE | 2021-10-12 12:44 | P.CDIC_ITS ---
CDI Concurrent Query Documentation Clarification: PHYSICIAN'S DOCUMENTATION REQUEST Date of Query: 10/12/21 1245 Patient Name: Ashleigh Keenan Admit Date: 10/11/21 Dear Doctor, A review of the medical record indicates additional documentation may be needed. Please review below and update the documentation accordingly. Clinical Indicators: Risk Factors/Clinical Indicators/Treatments H&P: chronic hypercapnic respiratory failure patient presents with respiratory failure with RR 21 pulse ox 88%/91% placed on 4 l nc. Supplemental O2 with improvement - O2 dependent at home. Nocturnal hypoxemia. Chronic Co2 retention. If possible, please further clarify the acuity of respiratory failure: Type: * Respiratory failure with hypoxia * Respiratory failure with hypercapnia * Respiratory failure with hypoxia and hypercapnia * Other (please specify) * Unable to determine Acuity: * Acute * Chronic * Acute on chronic * Unable to determine Use of terms such as suspected, likely, concern for, or probable (associated with a specific diagnosis that is being evaluated, monitored, or treated as if it exists) are acceptable and can be coded in the inpatient setting, when documented at the time of discharge. Thank you, Ashley Cabrera [facility], CDIS Extension: [phone] Please use your independent medical judgment in providing your response. THIS QUERY IS PART OF THE PERMANENT MEDICAL RECORD Provider Response: Other Other Diagnosis: Hypercapnic respiratory failure
--- NOTE | 2021-10-12 12:52 | P.CDIC_ITS ---
CDI Concurrent Query Documentation Clarification: PHYSICIAN'S DOCUMENTATION REQUEST Date of Query: 10/12/21 1252 Patient Name: Ashleigh Keenan Admit Date: 10/11/21 Dear Doctor, A review of the medical record indicates additional documentation may be needed. Please review below and update the documentation accordingly. Risk Factors/Clinical Indicators/Treatments Body mass index: 48.7 5' in height If possible, please provide an associated diagnosis related to the abnormal BMI, such as: For a BMI >= 40: * Overweight * Obesity * Due to excess calories * Drug induced * Due to other cause * Severe or Morbid Obesity * With alveolar hypoventilation * Without alveolar hypoventilation Or: * BMI is not significant * Other (please specify) * Unable to determine Use of terms such as suspected, likely, concern for, or probable (associated with a specific diagnosis that is being evaluated, monitored, or treated as if it exists) are acceptable and can be coded in the inpatient setting, when documented at the time of discharge. Thank you, Ashley Cabrera [facility], CDIS Extension: [phone] Please use your independent medical judgment in providing your response. THIS QUERY IS PART OF THE PERMANENT MEDICAL RECORD Provider Response: Other Other Diagnosis: Severe morbid obesity with alveolar hypoventilation
--- NOTE | 2021-10-12 12:52 | MHC.CDI.CONC ---
CDI Concurrent Query Documentation Clarification: PHYSICIAN'S DOCUMENTATION REQUEST Date of Query: 10/12/21 1252 Patient Name: Ashleigh Keenan Admit Date: 10/11/21 Dear Doctor, A review of the medical record indicates additional documentation may be needed. Please review below and update the documentation accordingly. Risk Factors/Clinical Indicators/Treatments Body mass index: 48.7 5' in height If possible, please provide an associated diagnosis related to the abnormal BMI, such as: For a BMI >= 40: Overweight Obesity Due to excess calories Drug induced Due to other cause Severe or Morbid Obesity With alveolar hypoventilation Without alveolar hypoventilation Or: BMI is not significant Other (please specify) Unable to determine Use of terms such as suspected, likely, concern for, or probable (associated with a specific diagnosis that is being evaluated, monitored, or treated as if it exists) are acceptable and can be coded in the inpatient setting, when documented at the time of discharge. Thank you, Ashley Cabrera [facility], CDIS Extension: [phone] Please use your independent medical judgment in providing your response. THIS QUERY IS PART OF THE PERMANENT MEDICAL RECORD Provider Response: Other Other Diagnosis: Severe morbid obesity with alveolar hypoventilation
[2021-10-12 12:57] LABS: Glucose, Whole Blood 113 mg/dL (60-115)
--- NOTE | 2021-10-12 13:40 | HO.PM.IMPN ---
Subjective Subjective Date of Service: 10/12/21 Interval History: Markedly improved overnight with BiPAP. More alert and interactive with family Review of Systems Denies chest pain Admits to shortness of breath Denies nausea vomiting diarrhea Denies fever chills Physical Exam Vital Signs: Vital Signs: Last Vital Signs Temp 97.3 F 10/11/21 22:32 Pulse 106 H 10/12/21 09:27 Resp 16 10/12/21 09:27 BP 102/73 10/12/21 09:27 Pulse Ox 94 10/12/21 09:27 Oxygen Flow Rate 6 10/11/21 07:27 BMI result Body Mass Index 48.6 Const: Other: Awake alert no acute distress Resp: Other: Coarse rhonchi throughout with scattered wheezes Cardio: Other: No S4; positive S1-S2; no S3 murmurs rubs or gallops GI: Other: Soft nontender nondistended with normoactive bowel sounds Extrem: Other: No edema bilaterally Objective Data Active Medications Acetaminophen (Acetaminophen 325 Mg Tablet) 650 mg PO Q8H PRN PRN Reason: pain Acetaminophen (Acetaminophen 325 Mg Tablet) 650 mg PO Q6H PRN PRN Reason: Pain, Mild (Pain Scale 1-3) Acetaminophen/Butalbital/Caffeine (Butalb/Acetamin/Caff 50/325/40 Tablet) 1 tab PO Q4H PRN PRN Reason: Headache Acetazolamide (Acetazolamide 250 Mg Tablet) 250 mg PO BID [facility] Last Admin: 10/12/21 09:35 Dose: 250 mg Documented by: ANUJ Albuterol Sulfate (Albuterol Sulfate (0.083%) 2.5 Mg/3 Ml Vial.Maryjane) 2.5 mg INHALE Q4H PRN PRN Reason: wheezing Albuterol Sulfate (Albuterol Sulfate 90 Mcg 8 Gm Inhaler) 2 puff INHALE Q6H PRN PRN Reason: wheezing Aspirin (Aspirin Enteric Coated 81 Mg Tablet.) 81 mg PO DAILY [facility] Last Admin: 10/12/21 09:36 Dose: 81 mg Documented by: ANUJ Atorvastatin Calcium (Atorvastatin Calcium 80 Mg Tablet) 80 mg PO BEDTIME [facility] Last Admin: 10/11/21 21:25 Dose: 80 mg Documented by: CHRIS Enoxaparin Sodium (Enoxaparin Sodium 40 Mg/0.4 Ml Syringe) 40 mg SUBCUT Q24H [facility] Last Admin: 10/11/21 15:28 Dose: 40 mg Documented by: TREY Fluticasone Propionate (Fluticasone Propionate Nasal 16 Gm [place]) 1 spray NOSTRIL-B DAILY [facility] Last Admin: 10/12/21 10:25 Dose: Not Given Documented by: ANUJ Non-Admin Reason: Med Not Available Hydralazine HCl (Hydralazine Hcl 10 Mg Tablet) 10 mg PO TID [facility]; Protocol Last Admin: 10/12/21 09:35 Dose: 10 mg Documented by: ANUJ Piperacillin Sod/Tazobactam (Sod 4.5 gm/ Sodium Chloride) 100 mls @ 200 mls/hr IV Q6H [facility] Last Infusion: 10/12/21 10:53 Dose: 0 mls/hr Documented by: ANUJ Lidocaine (Lidocaine 4 % Patch Adh..Patch) 1 patch TRANSDERMA DAILY [facility] Last Admin: 10/12/21 09:52 Dose: Not Given Documented by: ANUJ Non-Admin Reason: Med Not Available Lisinopril (Lisinopril 10 Mg Tablet) 10 mg PO DAILY [facility]; Protocol Last Admin: 10/12/21 09:35 Dose: 10 mg Documented by: ANUJ Metformin HCl (Metformin Hcl 500 Mg Tablet) 500 mg PO BID [facility] Last Admin: 10/12/21 09:35 Dose: 500 mg Documented by: ANUJ Patient Own Medication (Flovent 44mcg) 2 each INHALE BID [facility] Last Admin: 10/12/21 09:34 Dose: 2 each Documented by: ANUJ Patient Own Medication ( Combivent 20mcg/100mcg) 1 each INHALE QID [facility] Last Admin: 10/12/21 09:34 Dose: 1 each Documented by: ANUJ Patient Own Medication ( Polymixin B/Trimethoprim Opthalmic) 1 each EYE-LEFT QID [facility] Last Admin: 10/12/21 09:34 Dose: 1 each Documented by: ANUJ Pharmacy Consult (Consult Rx Perform Med Rec) 1 each MISCELLANE ONCE PRN PRN Reason: Consult order Senna (Sennosides 8.6 Mg Tablet) 17.2 mg PO DAILY [facility] Last Admin: 10/12/21 09:35 Dose: 17.2 mg Documented by: ANUJ Sodium Chloride (0.9 % Sodium Chloride Flush 3 Ml Syringe) 3 ml IVFLUSH QSHIFT [facility] Last Admin: 10/12/21 09:36 Dose: Not Given Documented by: ANUJ Non-Admin Reason: Med Not Available Thiamine HCl (Thiamine Hcl 100 Mg Tablet) 50 mg PO DAILY [facility] Last Admin: 10/12/21 09:35 Dose: 50 mg Documented by: ANUJ Verapamil HCl (Verapamil Hcl Sr 240 Mg Tablet.Er) 240 mg PO DAILY [facility]; Protocol Last Admin: 10/12/21 09:35 Dose: 240 mg Documented by: ANUJ Labs CBC & Chem 7: 10/12/21 06:50 10/12/21 06:49 Labs: Laboratory Results - last 24 hr 10/11/21 10/11/21 10/11/21 14:53 20:56 22:09 MCV MCH MCHC RDW Plt Count MPV Immature Gran % (Auto) Neut % (Auto) Lymph % (Auto) Henry % (Auto) Eos % (Auto) Baso % (Auto) Lymph # (Auto) Henry # (Auto) Eos # (Auto) Baso # (Auto) Abs Immat Gran (auto) Absolute Neuts (auto) Absolute Nucleated RBC Nucleated RBC % (auto) VBG pH Cancelled VBG pCO2 Cancelled VBG pO2 Cancelled VBG HCO3 Cancelled VBG O2 Saturation Cancelled VBG Base Excess Cancelled Anion Gap Estim Creat Clear Calc Estimated GFR POC Glucose 169 H 140 H Fasting Glucose Calcium Total Bilirubin AST ALT Alkaline Phosphatase Total Protein Albumin 10/11/21 10/12/21 10/12/21 22:10 06:49 06:50 MCV 95.8 MCH 28.7 MCHC 30.0 L RDW 14.4 Plt Count 423 H MPV 9.5 Immature Gran % (Auto) 0.7 H Neut % (Auto) 73.7 H Lymph % (Auto) 16.4 L Henry % (Auto) 8.9 Eos % (Auto) 0.1 Baso % (Auto) 0.2 Lymph # (Auto) 2.0 Henry # (Auto) 1.1 Eos # (Auto) 0.0 Baso # (Auto) 0.0 Abs Immat Gran (auto) 0.08 H Absolute Neuts (auto) 9.0 H Absolute Nucleated RBC 0.020 H Nucleated RBC % (auto) 0.2 VBG pH 7.36 VBG pCO2 89 VBG pO2 112 VBG HCO3 51 H VBG O2 Saturation 98.0 VBG Base Excess 20.3 Anion Gap 10 L Estim Creat Clear Calc 87.7 Estimated GFR > 60 POC Glucose Fasting Glucose 88 Calcium 8.8 Total Bilirubin 0.5 AST 17 D ALT 40 H Alkaline Phosphatase 90 D Total Protein 6.4 L Albumin 3.5 10/12/21 10/12/21 10/12/21 06:55 07:02 12:40 MCV MCH MCHC RDW Plt Count MPV Immature Gran % (Auto) Neut % (Auto) Lymph % (Auto) Henry % (Auto) Eos % (Auto) Baso % (Auto) Lymph # (Auto) Henry # (Auto) Eos # (Auto) Baso # (Auto) Abs Immat Gran (auto) Absolute Neuts (auto) Absolute Nucleated RBC Nucleated RBC % (auto) VBG pH 7.37 VBG pCO2 88 VBG pO2 75 VBG HCO3 51 H VBG O2 Saturation 93.0 VBG Base Excess 21.3 Anion Gap Estim Creat Clear Calc Estimated GFR POC Glucose 92 113 Fasting Glucose Calcium Total Bilirubin AST ALT Alkaline Phosphatase Total Protein Albumin Microbiology Microbiology Results: Microbiology 10/11/21 09:27 Blood Culture - Preliminary Blood - Venous No growth after 24 hours. 10/11/21 07:50 Blood Culture - Preliminary Blood - Venous No growth after 24 hours. Assessment and Plan (1) Chronic hypercapnic respiratory failure: Status: Acute (2) Aspiration pneumonia: Status: Acute (3) Moderate asthma: Status: Acute Plan 61.-year-old female with known history of chronic hypercapnic respiratory failure and nocturnal hypoxemia presents today with respiratory failure and worsening of her hypercapnia. Patient's mentation improved with supplemental O2. Upon discharge last admission, patient was sent on nocturnal oxygen however sleep study was strongly recommended for utilization of BiPAP. Patient said she was discharged home and did fine for approximately 1 week and then started to become somnolent and weak. 1. Hypercapnic respiratory failure -BiPAP 10/5 overnight.... Excellent results; clinically improved -VBGs this a.m.; well-compensated respiratory acidosis - Diamox 250 b.i.d... Bicarb stable -clinically benefits by BiPAP; both laboratory and clinical improvement indicate need for BiPAP 2. Aspiration pneumonia and backdrop of mild persistent asthma -Zosyn -pulse dose steroids -DuoNebs q.4 hours while awake -supplemental O2 to maintain O2 sat greater than 88% 3. Essential hypertension -acceptable control with hydralazine -next step would be to increase lisinopril 4. Diabetes type 2 -continue outpatient therapies -lispro correctional scale -ADA diet Will require ongoing hospitalization to fully document stabilization of mental status with BiPAP; Quality Stroke Does the patient have a stroke diagnosis?: No VTE Prior VTE?: No VTE Risk Level:: Medical - moderate - high VTE Device Contraindication: Treatment Not Indicated VTE Drug Contraindication: N/A - Med Ordered
[2021-10-12] MEDS: Enoxaparin Sodium 40 MG/0.4 ML SYRINGE SUBCUT (16:01)
[2021-10-12 16:16] LABS: Glucose, Whole Blood 115 mg/dL (60-115)
[2021-10-12 21:29] LABS: Glucose, Whole Blood 124 mg/dL (60-115)
[2021-10-12] MEDS: Atorvastatin Calcium 80 MG TABLET PO (21:37)
[2021-10-13] VITALS (13 sets, daily range): BP systolic 96–144; BP diastolic 64–87; PULSE 63–95; RESP 15–20; TEMP 36–37.5; O2SAT 84–98
[2021-10-13] MEDS: Piperacillin Sodium/Tazobactam 4.5 GM in 0.9 % Sodium Chloride 100 ML IV ×4 (03:21→21:24)
[2021-10-13 06:17] LABS: MANUAL DIFF FLAG NO
[2021-10-13 06:19] LABS: Basophils Percent Auto 0.3 % (0-2); Eosinophils Absolute Auto 0.1 X10*3/uL (0.0-0.4); Eosinophils Percent Auto 0.9 % (0-4); Imm Gran Abs Auto 0.06 X10*3/uL (0.00-0.03); Imm Gran Pct Auto 0.7 % (0.0-0.4); Lymphocytes Absolute Auto 1.9 X10*3/uL (1.2-4.9); Lymphocytes Percent Auto 21.1 % (20-40); Mean Corpuscular HGB Conc 28.9 g/dl (31.0-35.0); Mean Corpuscular Hemoglobin 28.4 pg (27.0-33.0); Mean Corpuscular Volume 98.2 fL (80.0-98.0); Mean Platelet Volume 9.2 fL (9.4-12.3); Monocytes Absolute Auto 0.8 X10*3/uL (0.1-1.2); Monocytes Percent Auto 8.5 % (2-11); Neutrophils Absolute Auto 6.3 x10*3/uL (2.0-8.3); Neutrophils Percent Auto 68.5 % (45-73); Platelet Count 417 X10*3/uL (160-400); Red Blood Count 3.87 X10*6/uL (4.20-5.50); Red Cell Distribution Width 14.6 % (11.0-16.0); White Blood Count 9.1 X10*3/uL (4.8-10.8)
[2021-10-13 06:51] LABS: Alanine Aminotransferase 33 U/L (0-31); Albumin Level 3.4 g/dL (3.5-5.0); Alkaline Phosphatase 83 U/L (39-117); Anion Gap 10 (12-20); Aspartate Amino Transferase 12 U/L (5-31); Bilirubin Total 0.4 mg/dL (0.0-1.0); Blood Urea Nitrogen 26 mg/dL (9-16); Calcium 8.8 mg/dL (8.4-10.2); Carbon Dioxide 38 mmol/L (22-29); Chloride 99 mmol/L (96-108); Creatinine Clr Calc Pharmacy 80.5; Estimated Glomerular Filt Rate > 60; Glucose Fasting 89 mg/dL (60-99); Potassium 4.4 mmol/L (3.3-5.1); Sodium 143 mmol/L (135-145); Total Protein 6.2 g/dL (6.5-8.0)
[2021-10-13 07:36] LABS: Glucose, Whole Blood 90 mg/dL (60-115)
[2021-10-13 10:20] LABS: ABG Base Excess 13.2 mmol/L; ABG HCO3 43 mmol/L (22-26); ABG pCO2 88 mmHg (32-45); ABG pH 7.29 (7.35-7.45); ABG pO2 120 mmHg (83-108)
[2021-10-13] MEDS: Thiamine HCL 100 MG TABLET 50 MG PO (10:33)
[2021-10-13] MEDS: acetaZOLAMIDE 250 MG TABLET PO ×2 (10:33→21:24)
[2021-10-13] MEDS: VerapamiL HCL SR 240 MG TABLET.ER PO (10:33)
[2021-10-13] MEDS: lisinopriL 10 MG TABLET PO (10:34)
[2021-10-13] MEDS: Sennosides 8.6 MG TABLET 17.2 MG PO (10:34)
[2021-10-13] MEDS: Aspirin Enteric Coated 81 MG TABLET.DR PO (10:34)
[2021-10-13] MEDS: hydrALAZINE HCl 10 MG TABLET PO ×3 (10:34→21:24)
[2021-10-13] MEDS: 0.9 % Sodium Chloride Flush 3 ML SYRINGE IVFLUSH ×3 (10:35→21:24)
[2021-10-13] MEDS: metFORMIN HCl 500 MG TABLET PO ×2 (10:36→21:24)
[2021-10-13 11:05] LABS: Glucose, Whole Blood 143 mg/dL (60-115)
--- NOTE | 2021-10-13 11:28 | P.PNIM_ITS ---
Subjective Subjective Date of Service: 10/13/21 Interval History: Markedly improved overnight with NIV. More alert and interactive with family Review of Systems Denies chest pain Admits to shortness of breath Denies nausea vomiting diarrhea Denies fever chills Physical Exam Vital Signs: Vital Signs: Last Vital Signs Temp 96.8 F 10/13/21 07:13 Pulse 77 10/13/21 07:13 Resp 20 10/13/21 07:42 BP 106/68 10/13/21 07:13 Pulse Ox 95 10/13/21 08:00 Oxygen Flow Rate 5 10/13/21 08:00 BMI result Body Mass Index 48.6 Const: Other: Awake alert no acute distress Resp: Other: Coarse rhonchi throughout with scattered wheezes Cardio: Other: No S4; positive S1-S2; no S3 murmurs rubs or gallops GI: Other: Soft nontender nondistended with normoactive bowel sounds Extrem: Other: No edema bilaterally Objective Data Active Medications Acetaminophen (Acetaminophen 325 Mg Tablet) 650 mg PO Q8H PRN PRN Reason: pain Acetaminophen (Acetaminophen 325 Mg Tablet) 650 mg PO Q6H PRN PRN Reason: Pain, Mild (Pain Scale 1-3) Acetaminophen/Butalbital/Caffeine (Butalb/Acetamin/Caff 50/325/40 Tablet) 1 tab PO Q4H PRN PRN Reason: Headache Acetazolamide (Acetazolamide 250 Mg Tablet) 250 mg PO BID [facility] Last Admin: 10/13/21 10:33 Dose: 250 mg Documented by: DANNI Albuterol Sulfate (Albuterol Sulfate (0.083%) 2.5 Mg/3 Ml Vial.Neb) 2.5 mg INHALE Q4H PRN PRN Reason: wheezing Albuterol Sulfate (Albuterol Sulfate 90 Mcg 8 Gm Inhaler) 2 puff INHALE Q6H PRN PRN Reason: wheezing Aspirin (Aspirin Enteric Coated 81 Mg Tablet.) 81 mg PO DAILY [facility] Last Admin: 10/13/21 10:34 Dose: 81 mg Documented by: DANNI Atorvastatin Calcium (Atorvastatin Calcium 80 Mg Tablet) 80 mg PO BEDTIME [facility] Last Admin: 10/12/21 21:37 Dose: 80 mg Documented by: JOHN Enoxaparin Sodium (Enoxaparin Sodium 40 Mg/0.4 Ml Syringe) 40 mg SUBCUT Q24H [facility] Last Admin: 10/12/21 16:01 Dose: 40 mg Documented by: DANNI Fluticasone Propionate (Fluticasone Propionate Nasal 16 Gm [place]) 1 spray NOSTRIL-B DAILY [facility] Last Admin: 10/13/21 10:41 Dose: Not Given Documented by: DANNI Non-Admin Reason: not available,will call pharmacy Hydralazine HCl (Hydralazine Hcl 10 Mg Tablet) 10 mg PO TID [facility]; Protocol Last Admin: 10/13/21 10:34 Dose: 10 mg Documented by: DANNI Piperacillin Sod/Tazobactam (Sod 4.5 gm/ Sodium Chloride) 100 mls @ 200 mls/hr IV Q6H [facility] Last Infusion: 10/13/21 11:11 Dose: 0 mls/hr Documented by: DANNI Insulin Human Lispro (Insulin Lispro 100 Unit/Ml 3 Ml Vial) 0 unit SUBCUT QIDACHS [facility]; Protocol Last Admin: 10/13/21 07:38 Dose: Not Given Documented by: DANNI Non-Admin Reason: No Insulin Coverage Lidocaine (Lidocaine 4 % Patch Adh..Patch) 1 patch TRANSDERMA DAILY [facility] Last Admin: 10/13/21 10:36 Dose: Not Given Documented by: DANNI Non-Admin Reason: Patient Refused Lisinopril (Lisinopril 10 Mg Tablet) 10 mg PO DAILY [facility]; Protocol Last Admin: 10/13/21 10:34 Dose: 10 mg Documented by: DANNI Metformin HCl (Metformin Hcl 500 Mg Tablet) 500 mg PO BID [facility] Last Admin: 10/13/21 10:36 Dose: 500 mg Documented by: DANNI Patient Own Medication (Flovent 44mcg) 2 each INHALE BID [facility] Last Admin: 10/13/21 10:37 Dose: 2 each Documented by: DANNI Patient Own Medication ( Combivent 20mcg/100mcg) 1 each INHALE QID [facility] Last Admin: 10/13/21 10:37 Dose: 1 each Documented by: DANNI Patient Own Medication ( Polymixin B/Trimethoprim Opthalmic) 1 each EYE-LEFT QID [facility] Last Admin: 10/13/21 10:37 Dose: 1 each Documented by: DANNI Pharmacy Consult (Consult Rx Perform Med Rec) 1 each MISCELLANE ONCE PRN PRN Reason: Consult order Senna (Sennosides 8.6 Mg Tablet) 17.2 mg PO DAILY [facility] Last Admin: 10/13/21 10:34 Dose: 17.2 mg Documented by: DANNI Sodium Chloride (0.9 % Sodium Chloride Flush 3 Ml Syringe) 3 ml IVFLUSH QSHIFT [facility] Last Admin: 10/13/21 10:35 Dose: 3 ml Documented by: DANNI Thiamine HCl (Thiamine Hcl 100 Mg Tablet) 50 mg PO DAILY [facility] Last Admin: 10/13/21 10:33 Dose: 50 mg Documented by: DANNI Verapamil HCl (Verapamil Hcl Sr 240 Mg Tablet.Er) 240 mg PO DAILY [facility]; Protocol Last Admin: 10/13/21 10:33 Dose: 240 mg Documented by: DANNI Labs CBC & Chem 7: 10/13/21 06:11 10/13/21 06:11 Labs: Laboratory Results - last 24 hr 10/12/21 10/12/21 10/12/21 12:40 16:05 21:09 MCV MCH MCHC RDW Plt Count MPV Immature Gran % (Auto) Neut % (Auto) Lymph % (Auto) [place] % (Auto) Eos % (Auto) Baso % (Auto) Lymph # (Auto) [place] # (Auto) Eos # (Auto) Baso # (Auto) Abs Immat Gran (auto) Absolute Neuts (auto) Absolute Nucleated RBC Nucleated RBC % (auto) O2 Saturation ABG pH at Pt Temp ABG pCO2 at Pt Temp ABG pO2 at Pt Temp ABG HCO3 ABG Base Excess (Actual) Anion Gap Estim Creat Clear Calc Estimated GFR POC Glucose 113 115 124 H Fasting Glucose Calcium Total Bilirubin AST ALT Alkaline Phosphatase Total Protein Albumin 10/13/21 10/13/21 10/13/21 06:11 06:11 07:11 MCV 98.2 H MCH 28.4 MCHC 28.9 L RDW 14.6 Plt Count 417 H MPV 9.2 L Immature Gran % (Auto) 0.7 H Neut % (Auto) 68.5 Lymph % (Auto) 21.1 [place] % (Auto) 8.5 Eos % (Auto) 0.9 Baso % (Auto) 0.3 Lymph # (Auto) 1.9 [place] # (Auto) 0.8 Eos # (Auto) 0.1 Baso # (Auto) 0.0 Abs Immat Gran (auto) 0.06 H Absolute Neuts (auto) 6.3 Absolute Nucleated RBC 0.000 Nucleated RBC % (auto) 0.0 O2 Saturation ABG pH at Pt Temp ABG pCO2 at Pt Temp ABG pO2 at Pt Temp ABG HCO3 ABG Base Excess (Actual) Anion Gap 10 L Estim Creat Clear Calc 80.5 Estimated GFR > 60 POC Glucose 90 Fasting Glucose 89 Calcium 8.8 Total Bilirubin 0.4 AST 12 ALT 33 H Alkaline Phosphatase 83 Total Protein 6.2 L Albumin 3.4 L 10/13/21 10/13/21 10:11 11:01 MCV MCH MCHC RDW Plt Count MPV Immature Gran % (Auto) Neut % (Auto) Lymph % (Auto) [place] % (Auto) Eos % (Auto) Baso % (Auto) Lymph # (Auto) [place] # (Auto) Eos # (Auto) Baso # (Auto) Abs Immat Gran (auto) Absolute Neuts (auto) Absolute Nucleated RBC Nucleated RBC % (auto) O2 Saturation 98.0 ABG pH at Pt Temp 7.29 L ABG pCO2 at Pt Temp 88 H* ABG pO2 at Pt Temp 120 H ABG HCO3 43 H ABG Base Excess (Actual) 13.2 Anion Gap Estim Creat Clear Calc Estimated GFR POC Glucose 143 H Fasting Glucose Calcium Total Bilirubin AST ALT Alkaline Phosphatase Total Protein Albumin Microbiology Microbiology Results: Microbiology 10/11/21 07:50 Blood Culture - Preliminary Blood - Venous No growth after 48 hours. 10/11/21 09:27 Blood Culture - Preliminary Blood - Venous No growth after 24 hours. Assessment and Plan (1) Acute and chronic respiratory failure with hypercapnia: Status: Acute (2) Hypoxia: Status: Acute (3) COPD (chronic obstructive pulmonary disease): Status: Acute (4) Aspiration pneumonia: Status: Acute (5) Essential hypertension: Status: Acute (6) Diabetes mellitus: Status: Acute Plan 61.-year-old female with known history of chronic hypercapnic respiratory failu re and nocturnal hypoxemia presents today with respiratory failure and worsening of her hypercapnia. Patient's mentation improved with supplemental O2. Upon discharge last admission, patient was sent on nocturnal oxygen however sleep study was strongly recommended for utilization of BiPAP. Patient said she was discharged home and did fine for approximately 1 week and then started to become somnolent and weak. 1.Acute on chronic Hypercapnic respiratory failure with hypoxia in backdrop of COPD -excellent results with noninvasive ventilator -Diamox 250 b.i.d... Bicarb stable -clinically benefits by NIV; both laboratory and clinical improvement indicate need for NIV as outpatient 2. Aspiration pneumonia and backdrop of mild persistent asthma -Zosyn -pulse dose steroids -DuoNebs q.4 hours while awake -supplemental O2 to maintain O2 sat greater than 88% 3. Essential hypertension -acceptable control with hydralazine -next step would be to increase lisinopril 4. Diabetes type 2 -continue outpatient therapies -lispro correctional scale -ADA diet Patient will require noninvasive ventilator at home to assist with gas exchange and thereby decreasing admissions with an improved quality of life. Quality Stroke Does the patient have a stroke diagnosis?: No VTE Prior VTE?: No VTE Risk Level:: Medical - moderate - high VTE Device Contraindication: Treatment Not Indicated VTE Drug Contraindication: N/A - Med Ordered
--- NOTE | 2021-10-13 13:38 | MHC.CM.PN ---
Addendum entered by Charla Kong 10/13/21 13:56: WITH FURTHER INVESTIGATION PATIENT S HCP KASSY PRIETO ON HCP PHONE LISTED [phone] AND ON EXPAMNSE CONTACT NUMBER LISTED [phone] AND HOME Addendum entered by Charla Kong 10/13/21 13:52: HCP found from last admission and uploaded to [employer] noting kassy prieto [phone] as her hcp and summer hong as her second agent [phone] Original Note: nurse behavioral health case manager note electronic medicl record reviewed case discussed [facility] staff nurse and hospitlaist and respirtory therapist supervisor policy change clerks , (he informed me they are working with then hospitlaist line care and her [facility] ins to get her qualified for home bipap and anticipate she bee here through the weekend, i wnet to see her with [facility] interperter she reported she had a stroke in the past was discharged to [facility] and than home she now lives with her hisband in first floor she has vna and battery filler but does nto recall the name , 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 but does not recal from where , she reported her hcp is a deyvi pulido and should be on file, she also confirmed pcp dr rand toro and she had 2 pfzier covid vacinations, she also has linecare for hoem continuous oxygen , she uses a walker and wheelchair for outside or convience she has weaknes on one side of her body and also has a commode , she gave me permission to call her daughter which i did she will try to get me the name of the vna agency or nurse and the battery filler agency and also obtaine copy of her hcp, she reported she will call me back later , discharge plan retunr back home with her identify what vna agency identify what battery filler services and frquency and hours linecare for her home o2 - [facility] resp therpist and [facility] working on getting her qualifie for home bipp pcp dr rand toro transportation to be further determined
[2021-10-13] MEDS: Enoxaparin Sodium 40 MG/0.4 ML SYRINGE SUBCUT (15:55)
[2021-10-13 16:33] LABS: Glucose, Whole Blood 142 mg/dL (60-115)
[2021-10-13] MEDS: Lidocaine 4 % Patch ADH..PATCH 1 PATCH TRANSDERMA (18:11)
[2021-10-13] MEDS: Acetaminophen 325 MG TABLET 650 MG PO (18:15)
[2021-10-13 19:19] LABS: ABG Refer to POC result
[2021-10-13 20:21] LABS: Glucose, Whole Blood 129 mg/dL (60-115)
[2021-10-13] MEDS: Atorvastatin Calcium 80 MG TABLET PO (21:24)
[2021-10-14] MEDS: Piperacillin Sodium/Tazobactam 4.5 GM in 0.9 % Sodium Chloride 100 ML IV ×2 (03:13→09:08)
[2021-10-14 03:52] VITALS: BP 117/59; PULSE 67; RESP 18; TEMP 36.4; O2SAT 93
[2021-10-14 06:06] LABS: MANUAL DIFF FLAG NO
[2021-10-14 06:08] LABS: Basophils Percent Auto 0.3 % (0-2); Eosinophils Absolute Auto 0.1 X10*3/uL (0.0-0.4); Eosinophils Percent Auto 1.4 % (0-4); Hematocrit 38.2 % (37.0-47.0); Hemoglobin 11.2 g/dl (12.0-16.0); Imm Gran Abs Auto 0.06 X10*3/uL (0.00-0.03); Imm Gran Pct Auto 0.6 % (0.0-0.4); Lymphocytes Absolute Auto 1.7 X10*3/uL (1.2-4.9); Lymphocytes Percent Auto 16.7 % (20-40); Mean Corpuscular HGB Conc 29.3 g/dl (31.0-35.0); Mean Corpuscular Hemoglobin 28.1 pg (27.0-33.0); Mean Corpuscular Volume 95.7 fL (80.0-98.0); Mean Platelet Volume 9.2 fL (9.4-12.3); Monocytes Absolute Auto 0.9 X10*3/uL (0.1-1.2); Monocytes Percent Auto 9.1 % (2-11); Neutrophils Absolute Auto 7.4 x10*3/uL (2.0-8.3); Neutrophils Percent Auto 71.9 % (45-73); Platelet Count 384 X10*3/uL (160-400); Red Blood Count 3.99 X10*6/uL (4.20-5.50); Red Cell Distribution Width 14.5 % (11.0-16.0); White Blood Count 10.3 X10*3/uL (4.8-10.8)
[2021-10-14 06:28] LABS: Alanine Aminotransferase 28 U/L (0-31); Albumin Level 3.3 g/dL (3.5-5.0); Alkaline Phosphatase 74 U/L (39-117); Anion Gap 9 (12-20); Aspartate Amino Transferase 13 U/L (5-31); Bilirubin Total 0.6 mg/dL (0.0-1.0); Blood Urea Nitrogen 21 mg/dL (9-16); Calcium 8.9 mg/dL (8.4-10.2); Carbon Dioxide 35 mmol/L (22-29); Chloride 102 mmol/L (96-108); Creatinine Clr Calc Pharmacy 88.9; Estimated Glomerular Filt Rate > 60; Glucose Fasting 91 mg/dL (60-99); Potassium 4.2 mmol/L (3.3-5.1); Sodium 142 mmol/L (135-145); Total Protein 6.1 g/dL (6.5-8.0)
[2021-10-14 07:13] VITALS: BP 116/69; PULSE 75; RESP 20; TEMP 36.7; O2SAT 94
[2021-10-14 07:26] LABS: Glucose, Whole Blood 83 mg/dL (60-115)
[2021-10-14 07:49] VITALS: PULSE 80; RESP 18; O2SAT 94
[2021-10-14 08:00] VITALS: O2SAT 96
[2021-10-14] MEDS: Aspirin Enteric Coated 81 MG TABLET.DR PO (09:03)
[2021-10-14] MEDS: Sennosides 8.6 MG TABLET 17.2 MG PO (09:03)
[2021-10-14] MEDS: 0.9 % Sodium Chloride Flush 3 ML SYRINGE IVFLUSH (09:03)
[2021-10-14] MEDS: lisinopriL 10 MG TABLET PO (09:03)
[2021-10-14] MEDS: metFORMIN HCl 500 MG TABLET PO (09:03)
[2021-10-14] MEDS: Thiamine HCL 100 MG TABLET 50 MG PO (09:04)
[2021-10-14] MEDS: VerapamiL HCL SR 240 MG TABLET.ER PO (09:04)
[2021-10-14] MEDS: hydrALAZINE HCl 10 MG TABLET PO ×2 (09:04→14:41)
[2021-10-14] MEDS: acetaZOLAMIDE 250 MG TABLET PO (09:04)
[2021-10-14] MEDS: Lidocaine 4 % Patch ADH..PATCH 1 PATCH TRANSDERMA (09:05)
[2021-10-14 11:33] VITALS: BP 114/79; PULSE 87; RESP 18; TEMP 36.4; O2SAT 93
[2021-10-14 11:54] LABS: Glucose, Whole Blood 139 mg/dL (60-115)
--- NOTE | 2021-10-14 13:38 | PM.DS ---
DS: Providers Provider Date of Service: 10/14/21 Date of admission: 10/11/21 13:26 Date of discharge: 10/14/21 Primary care physician: Dolores Dubois MD DS: Diagnosis Discharge Diagnosis (1) Acute and chronic respiratory failure with hypercapnia: Status: Acute (2) Hypoxia: Status: Acute (3) COPD (chronic obstructive pulmonary disease): Status: Acute (4) Aspiration pneumonia: Status: Acute (5) Essential hypertension: Status: Acute (6) Diabetes mellitus: Status: Acute DS: Summary Hospital Course Hospital Course: 61 yo female with recent posterior stroke, HTN, asthma O2 dependent but doesn't know how much she is on, hx of aspiration pneumonia, DM, reports she has had a cough for a few days. Family found her with blue lips this morning - EMS did not report she was on oxygen and the patient states she took it off around 6am this morning becasue I only wear it at night. EMS notes her O2 sats were in the 70s and put on NRB here she is low 90s on 6L with a very coarse junky cough. MD elicited complaint: shortness of breath and cough Hospital course Patient admitted to hospital and treated for aspiration pneumonia with Zosyn. Maintained on BiPAP at night with stabilization of electrolyte imbalance. Diamox added with appropriate response. Hydralazine added again with good response. Data submitted to pulmonary care company and home BiPAP machine obtained. Patient will be discharged home on nightly BiPAP in hopes that this will improve her quality of life and diminish or eliminate hospitalizations. She will follow-up with PCP in 1-2 weeks Time Spent with Patient Time attestation: Total time spent providing and/or coordinating discharge services: Discharge coordination time: Greater than 30 minutes Quality: Safe Use of Opioids Does Pt have an Active Cancer Diagnosis on the Problem List?: No Quality: Stroke Does the patient have a stroke diagnosis?: No Physical Exam Vital Signs: Vital Signs: Last Vital Signs Temp 97.6 F 10/14/21 11:33 Pulse 87 10/14/21 11:33 Resp 18 10/14/21 11:33 BP 114/79 10/14/21 11:33 Pulse Ox 93 10/14/21 11:33 Oxygen Flow Rate 1 10/13/21 16:00 BMI result Body Mass Index 48.6 Const: Other: Awake alert no acute distress Resp: Other: Coarse rhonchi throughout with scattered wheezes Cardio: Other: No S4; positive S1-S2; no S3 murmurs rubs or gallops GI: Other: Soft nontender nondistended with normoactive bowel sounds Extrem: Other: No edema bilaterally DS: Data Data Completed and Pending Labs on day of discharge: Laboratory Results - last 24 hr 10/13/21 10/13/21 10/14/21 16:30 19:40 05:57 WBC 10.3 RBC 3.99 L Hgb 11.2 L Hct 38.2 MCV 95.7 MCH 28.1 MCHC 29.3 L RDW 14.5 Plt Count 384 MPV 9.2 L Immature Gran % (Auto) 0.6 H Neut % (Auto) 71.9 Lymph % (Auto) 16.7 L [place] % (Auto) 9.1 Eos % (Auto) 1.4 Baso % (Auto) 0.3 Lymph # (Auto) 1.7 [place] # (Auto) 0.9 Eos # (Auto) 0.1 Baso # (Auto) 0.0 Abs Immat Gran (auto) 0.06 H Absolute Neuts (auto) 7.4 Absolute Nucleated RBC 0.000 Nucleated RBC % (auto) 0.0 Sodium Potassium Chloride Carbon Dioxide Anion Gap BUN Creatinine Estim Creat Clear Calc Estimated GFR POC Glucose 142 H 129 H Fasting Glucose Calcium Total Bilirubin AST ALT Alkaline Phosphatase Total Protein Albumin 10/14/21 10/14/21 10/14/21 05:57 07:17 11:36 WBC RBC Hgb Hct MCV MCH MCHC RDW Plt Count MPV Immature Gran % (Auto) Neut % (Auto) Lymph % (Auto) [place] % (Auto) Eos % (Auto) Baso % (Auto) Lymph # (Auto) [place] # (Auto) Eos # (Auto) Baso # (Auto) Abs Immat Gran (auto) Absolute Neuts (auto) Absolute Nucleated RBC Nucleated RBC % (auto) Sodium 142 Potassium 4.2 Chloride 102 Carbon Dioxide 35 H Anion Gap 9 L BUN 21 H Creatinine 0.77 Estim Creat Clear Calc 88.9 Estimated GFR > 60 POC Glucose 83 139 H Fasting Glucose 91 Calcium 8.9 Total Bilirubin 0.6 AST 13 ALT 28 Alkaline Phosphatase 74 Total Protein 6.1 L Albumin 3.3 L Preliminary micro results at discharge 10/11/21 09:27 Blood Culture - Preliminary Blood - Venous No growth after 48 hours. 10/11/21 07:50 Blood Culture - Preliminary Blood - Venous No growth after 48 hours. Discharge Plan Discharge Patient Disposition: Home Health Service Discharge Diagnosis: Acute on chronic hypercapnic respiratory failure Referrals: Dolores Renteria MD [Primary Care Provider] - 1 Week Discharge Medications: New hydralazine 10 mg Tablet 10 mg PO TID Qty: 90 0RF Protocol: Hold for SBP< HOLD for SBP < : 90 amoxicillin-pot clavulanate 875-125 mg tablet 1 tab PO BID Qty: 14 0RF acetazolamide 250 mg tablet 250 mg PO BID Qty: 60 0RF Continued albuterol sulfate 2.5 mg /3 mL (0.083 %) solution for nebulization 1 amp inhalation Q4H PRN (Reason: wheezing) 0RF atorvastatin 80 mg Tablet 80 mg PO BEDTIME Qty: 30 0RF lisinopril 10 mg tablet 1 tab PO DAILY 0RF albuterol sulfate [ProAir HFA] 90 mcg/actuation HFA aerosol inhaler 2 puff PO Q6H PRN (Reason: wheezing) 0RF Combivent Respimat 20-100 mcg/actuation mist 1 puff INHALATION QID 0RF aspirin 81 mg Tablet,Delayed Release (Dr/Ec) 81 mg PO DAILY 0RF verapamil 240 mg capsule,ext rel. pellets 24 hr 240 mg PO DAILY 90 Days Qty: 90 3RF metformin 500 mg tablet 500 mg PO BID 90 Days Qty: 180 3RF fluticasone propionate [Flonase Allergy Relief] 50 mcg/actuation spray,suspension 1 spray intranasal DAILY 30 Days Qty: 16 6RF Rx Instructions: administer into each nostril budesonide [Pulmicort] 0.5 mg/2 mL suspension for nebulization 0.25 mg inhalation BID 30 Days Qty: 60 6RF acetaminophen [Tylenol 8 Hour] 650 mg tablet extended release 650 mg PO Q8H PRN (Reason: pain) 30 Days Qty: 90 11RF polymyxin B sulf-trimethoprim 10,000 unit- 1 mg/mL drops 1 drp ophthalmic-Left QID 7 Days Qty: 10 0RF Flovent HFA 44 mcg/actuation HFA aerosol inhaler 2 puff inhalation BID 0RF Rx Instructions: administer with spacer lidocaine 5 % adhesive patch,medicated 1 patch topical DAILY 0RF Rx Instructions: leave on most painful area for up to 12 hrs thiamine HCl (vitamin B1) 100 mg tablet 50 mg PO DAILY 0RF sennosides [senna] 8.6 mg tablet 17.2 mg PO DAILY 0RF Discharge Orders: Discharge Order (Routine); Ordered 10/14/21 Ordered By: Lukas Hackett Diet: advance to usual diet Activity on Discharge: As tolerated Stand Alone Forms: Patient Portal Discharge page Care Plan Goals: For utilize BiPAP machine every night as instructed by respiratory therapy Health Concerns: Continue to take Augmentin until complete Plan of Treatment: Hydralazine 10 mg 3 times a day and Diamox 250 2 times a day until seen by your physician Assessment: As per discharge summary
--- NOTE | 2021-10-14 13:41 | P.F2F_ITS ---
Service Date Service Date: 10/14/21 Encounter Date of encounter: 10/14/21 Encounter: Hospitalization Reasons for Services Signs and symptoms assessed: Patient with acute on chronic hypercapnic respiratory failure with hypoxia. Excellent results with overnight BiPAP Reason for usp: medication treatment, teach disease management and other ([facility] to monitor response to nightly BiPAP use) Homebound: Leaving the home is medically contraindicated at this time without the asist of a device and/or another person due th the listed conditions above and below. Reason homebound: unsteady gait / fall risk, shortness of breath with minimal effort and shortness of breath at rest Certification: Based on the above findings, I certify that this patient is confined to the home and needs intermittent usp care, physical therapy and/or speech therapy, or continues to need occupational therapy. The patient is under my care, and I have initiated the establishment of the plan of care. The patient will be followed by a physician who will periodically review the plan of care.
--- NOTE | 2021-10-14 14:18 | MHC.CM.PN ---
PT MEDICALLY CLEARED FOR D/C HOME W/NEW VNA FOR ASSISTED, PT HAS NEW BIPAP AT BEDSIDE AND WILL TRANSPORT PT HOME AT 4PM.
[2021-10-14] MEDS: Enoxaparin Sodium 40 MG/0.4 ML SYRINGE SUBCUT (14:42)
[2021-10-14 16:00] VITALS: BP 119/64; PULSE 17; RESP 18; TEMP 36.4; O2SAT 96
[2021-10-14 16:32] LABS: Glucose, Whole Blood 112 mg/dL (60-115)
[2021-10-14 20:25] LABS: Glucose, Whole Blood 109 mg/dL (60-115)
--- NOTE | 2021-10-14 20:38 | PC.NURSE ---
Patient was unable to perform transfers, stated her left foot hurt so much she could not bear weight. Family was tired of waiting for ambulance transport that was supposed to arrive at 1730 and had not arrived. lifted patient to w/c and patient left.
--- NOTE | 2021-10-15 16:13 | MHC.CM.PN ---
POST D/C NOTE, CM HAS STILL NOT OBTAINED A VNA FOR PT, CM CONTACTED [facility], ONCALL NURSE ANSWERED PHONE AND VERIFIED THEY TAKE PT'S INSURANCE AND WILL PROCESS REFERRAL TOMORROW, THEY DID REPORT THEY ONLY HAVE INTAKE [facility], THIS CM CONTACT NUMBER PROVIDED FOR ANY QUESTIONS THAT MAY COME UP.
== END 2021-10-14 20:41 | disposition home health service (06) | DRG 137 ==
LOC: HO.ED 10:09 → HO.EDOVER 13:41 → HO.S3 10-12 13:03
PROVIDERS: Admitting Provider Hospitalist; Emergency Provider Emergency Medicine; PCP Internal Medicine; Visit Provider Hospitalist
DX: J69.0 Pneumonitis due to inhalation of food and vomit (principal); J96.21 Acute and chronic respiratory failure with hypoxia; I11.0 Hypertensive heart disease with heart failure; J96.22 Acute and chronic respiratory failure with hypercapnia; Z99.81 Dependence on supplemental oxygen; E66.2 Morbid (severe) obesity with alveolar hypoventilation; J45.41 Moderate persistent asthma with (acute) exacerbation; Z68.42 Body mass index [BMI] 45.0-49.9, adult; E11.9 Type 2 diabetes mellitus without complications; Z20.822 Contact with and (suspected) exposure to COVID-19; Z79.51 Long term (current) use of inhaled steroids; Z79.82 Long term (current) use of aspirin; Z87.891 Personal history of nicotine dependence; Z79.84 Long term (current) use of oral hypoglycemic drugs; Z79.899 Other long term (current) drug therapy
CPT/HCPCS: 36415; 36600; 71045; 73620; 80048; 80053; 80076; 82803; 82947; 83605; 83690; 83735; 83880; 84484; 85025; 85610; 87040; 87502; 87635; 93005; 94640; 94644; 94660; 96365; 96375; 99285; 99291; J1650; J1940; J2543; J2930

== ENCOUNTER 2021-11-18 10:28 | Inpatient (IN) | payer OTHER, SELFPAY ==
[2021-11-18] VITALS (20 sets, daily range): BP systolic 113–188; BP diastolic 71–149; PULSE 104–130; RESP 11–28; TEMP 37.3; O2SAT 88–97; BMI 41.4
--- NOTE | ~2021-11-18 | CT_ITS ---
EXAMINATION: CT HEAD WITHOUT CONTRAST (STROKE PROTOCOL) CLINICAL INFORMATION: Stroke protocol. Acute mental status change COMPARISON: Previous head CT and brain MRI August 2021 TECHNIQUE: Contiguous axial imaging was performed from the skull base to vertex without intravenous administration of contrast. This CT examination was performed using dose optimization techniques as appropriate, variously including the following: *Automated exposure control *Adjustment of mA and/or kV according to patient size (this includes techniques or standardized protocols for targeted exams where dose is matched to indication/reason for exam; i.e. extremities or head) *Use of iterative reconstruction technique DLP: 85 mGy-cm FINDINGS: There is no evidence of an extra-axial collection. There is no evidence of intra-axial or extra-axial hemorrhage. The ventricles and extra-axial CSF spaces are appropriate. There is nonspecific periventricular white matter disease that appears unchanged. No mass mass effect or infarct is seen. Review of bone windows is normal. No inflammatory changes in the left frontal and ethmoid sinuses. CT/CT head for stroke IMPRESSION: No acute findings. Nonspecific periventricular white matter disease similar to previous exam. This critical result was discussed with Dr. Borrero at 1108 hours on 11/18/2021. It was ascertained that the content and urgency of the report was understood at the time of direct communication.
--- NOTE | ~2021-11-18 | XR_ITS ---
EXAMINATION: XR CHEST CLINICAL INFORMATION: Shortness of breath COMPARISON: Previous chest x-ray most recent October 2021 TECHNIQUE: Frontal view of the chest was obtained. FINDINGS: The cardiac silhouette is enlarged but stable. Hilar and mediastinal contours are unremarkable. The lungs are clear. There is no pleural effusion or pneumothorax. No acute bone abnormality. XR/XR chest 1V IMPRESSION: Stable enlargement of the cardiac silhouette.
--- NOTE | 2021-11-18 10:36 | ECG_ITS ---
Test Reason : CODE/DIFF BREATHING Blood Pressure : / mmHG Vent. Rate : 124 BPM Atrial Rate : 124 BPM P-R Int : 124 ms QRS Dur : 082 ms QT Int : 312 ms P-R-T Axes : 063 025 073 degrees QTc Int : 448 ms Sinus tachycardia with Premature atrial complexes Otherwise normal ECG When compared with ECG of 11-OCT-2021 07:28, No significant change was found Referred By: Bessie Borrero Electronically Signed By:STEPHANIE HERRERA
[2021-11-18 10:55] LABS: ABG Base Excess 9.3 mmol/L; ABG HCO3 40 mmol/L (22-26); ABG pCO2 88 mmHg (32-45); ABG pH 7.26 (7.35-7.45); ABG pO2 64 mmHg (83-108)
[2021-11-18 11:05] LABS: Prothrombin Time Whole Bld POC 12.8 sec (11.1-13.5); ~PT, ~INR - Anti Coag Clinic 1.1 (0.9-1.1)
--- NOTE | 2021-11-18 11:12 | ED_ITS ---
HPI - Altered Mental Status General Chief Complaint: Altered Mental Status Stated Complaint: resp distress Time Seen by Provider: 11/18/21 10:34 Source: patient, family (( Sean Chowdhury) and daughter Clive Leone over the phone), EMS, old records reviewed and freelance interpreter/translator Mode of arrival: EMS Limitations: altered mental status History of Present Illness HPI narrative: 61 years old female came in for evaluation for change mental status. A 61-year-old female with history of COPD and chronic hypercarbic respiratory failure came in by EMS for change mental status and hypoxia of 66% on room air. Patient was transported by EMS with BMV patient showed improvement in route patient now is more awake but still disoriented incoherent, patient was very poor historian and disoriented and coherent noted to have asymmetric face with weakness on the left side and weakness on the left side of her body due to pat ient mental status unable to determine if patient having speech problems, and daughter both confirm that patient had stroke left her with left- sided weakness and difficulty ambulating and face asymmetry hold for 3 months since her last stroke. Old record showed patient was positive for opiate and cocaine in the past. Related Data Home Medications Medication Instructions Recorded Confirmed albuterol sulfate 1 amp inhalation Q4H PRN wheezing 08/27/21 11/02/21 sennosides 8.6 mg tablet (senna) 17.2 mg PO DAILY 09/28/21 11/02/21 thiamine HCl (vitamin B1) 100 mg 50 mg PO DAILY 09/28/21 11/02/21 tablet Previous Rx's Medication Instructions Recorded acetaminophen 650 mg 650 mg PO Q8H PRN pain 30 days #90 08/07/21 tablet,extended release (Tylenol 8 tabs Hour) budesonide 0.5 mg/2 mL suspension 0.25 mg inhalation BID 30 days #60 08/07/21 for nebulization (Pulmicort) mL fluticasone propionate 50 1 spray intranasal DAILY 30 days 08/07/21 mcg/actuation nasal #16 grams spray,suspension (Flonase Allergy Relief) verapamil 240 mg 24 hr 240 mg PO DAILY 90 days #90 caps 08/07/21 capsule,extended release acetazolamide 250 mg tablet 250 mg PO BID #60 tabs 11/01/21 atorvastatin 80 mg tablet 80 mg PO BEDTIME #30 tabs 11/01/21 hydralazine 10 mg tablet 10 mg PO TID #90 tabs 11/01/21 lisinopril 10 mg tablet 10 mg PO DAILY #30 tabs 11/01/21 metformin 500 mg tablet 500 mg PO BID 90 days #180 tabs 11/01/21 albuterol sulfate 90 mcg/actuation 2 puff PO Q6H PRN wheezing #8.5 11/03/21 aerosol inhaler (ProAir HFA) grams aspirin 81 mg tablet,delayed 81 mg PO DAILY 90 days #90 tabs 11/03/21 release fluticasone propionate 44 2 puff inhalation BID #10.6 grams 11/03/21 mcg/actuation HFA aerosol inhaler (Flovent HFA) ipratropium 20 mcg-albuterol 100 1 puff inhalation QID #4 grams 11/03/21 mcg/actuation mist for inhalation (Combivent Respimat) lidocaine 5 % topical patch 1 patch topical DAILY 30 days #30 11/03/21 ea Allergies Allergy/AdvReac Type Severity Reaction Status Date / Time No Known Allergies Allergy Verified 11/02/21 13:24 Review of Systems Review of Systems: Yes Unobtainable due to mental status [facility] Past Medical History Medical History (Updated 11/18/21 @ 12:56 by Bessie Borrero MD) Congestive heart failure Diabetes mellitus Essential hypertension Moderate asthma Oxygen dependent Surgical History History of cholecystectomy History of cholecystectomy History of open reduction and internal fixation (ORIF) procedure History of open reduction and internal fixation (ORIF) procedure History of tubal ligation History of tubal ligation Family History Family History Father Medical history unknown Mother Diabetes Hypertension Father Medical history unknown Mother Hypertension Diabetes Other Substance use disorder Social History Social History Household Members: Spouse Housing: Apartment Do you presently have visiting nurse or other home services: Yes Alcohol intake: former Patient Tobacco Use Status: Former Tobacco user Tobacco use type: Cigarette Cigarette Packs Per Day: 0.75 Cigarettes Per Day: 15.0 Years Smoked: 31 years e-Cigarette/Vaping Use: Never Used Second Hand Smoke Exposure: Yes Advance Directives: Yes Advance Directives on File: Yes Advance Directives Date on File: 08/28/21 service: No Current occupational status: other Cognitive needs: Yes (walker/wheelchair/cane) Hearing needs: No Vision needs: Yes Physical Exam ED Vital Signs: Vital Signs - 24 hr 11/18/21 11:05 11/18/21 11:23 11/18/21 11:49 Pulse Rate 122 H 116 H Respiratory Rate 28 H 20 16 Blood Pressure 173/116 H 179/100 H Pulse Oximetry 97 89 L Oxygen Delivery Method Nasal Cannula BiPAP BMI result Body Mass Index 41.4 Vital signs have been reviewed as appeared to be correct. Blood pressure normal. Heart rate normal. Respiration rate normal. Temperature normal. Oxygen saturation normal. Appearance: Alert. Oriented to person, overall patient is somnolent regarding examiner, answer some question via freelance interpreter/translator incoherently. Head: Normal external exam. Normocephalic. Atraumatic. No Street signs noted. No raccoon eyes noted Eyes: PERRLA. EOMI. Conjunctiva and sclera normal. Eyelids normal. ENT: TM's Normal. Pharynx normal. Uvula midline. Moist mucous membranes. No trismus noted. No drooling noted. No muffled voice noted. Neck: Normal inspection. Neck supple. FROM. No adenopathy. Thyroid Normal. No meningeal signs. No neck mass noted. CVS: Normal heart rate and rhythm. Heart sound normal. No murmurs noted. Pulses normal throughout. Respiratory: Acute respiratory distress, prolonged expiration with diffuse bilateral expiratory wheezing, crackles bilateral lung claire, basilar rales bilateral lungs. Abdomen: Soft and nontender. Bowel sounds normal in all 4 quadrants. No distention noted. No organomegaly noted. No visible injury noted. Back: No CVA tenderness. Full range of motion noted. Skin: Skin warm and dry. Normal skin color. Normal skin turgor. No ra shes/lesions/lacerations noted. Extremities: No lower extremity edema. Extremities exhibit normal range of motion. Extremities nontender. Neuro: Disoriented to time and place and event Cranial nerve exam: Mild left facial weakness Mild left hemiparesis with left upper extremities pronator drift able to hold it against gravity for 10 seconds, No sensory deficit. Reflexes normal. Course Course Course Narrative: Assessment and plan. 1. Acute on chronic respiratory failure with hypercarbia, patient showed excellent response to BiPAP machine in the ED will admit to ICU continue with BiPAP machine. 2. Questionable stroke initially patient had difficult exam due to be changed mental status secondary to hypercarbia, now at the bedside confirmed that patient look the same and able to answer most of his question patient is more coherent now able to move [address] is unremarkable. 3. Consider empirical treatment of antibiotic patient do not meet severe sepsis criteria for septic shock. MDM - Altered Mental Status Medical Records Attestation: I reviewed the patient's medical records. Lab Data Attestation: I reviewed the patient's lab results. Result diagrams: 11/18/21 11:54 11/18/21 11:54 Labs: Lab Results 11/18/21 11/18/21 11/18/21 Range/Units 10:46 10:51 11:04 WBC (4.8-10.8) X10*3/uL RBC (4.20-5.50) X10*6/uL Hgb (12.0-16.0) g/dl Hct (37.0-47.0) % MCV (80.0-98.0) fL MCH (27.0-33.0) pg MCHC (31.0-35.0) g/dl RDW (11.0-16.0) % Plt Count (160-400) X10*3/uL MPV (9.4-12.3) fL Immature Gran % (Auto) (0.0-0.4) % Neut % (Auto) (45-73) % Lymph % (Auto) (20-40) % [place] % (Auto) (2-11) % Eos % (Auto) (0-4) % Baso % (Auto) (0-2) % Lymph # (Auto) (1.2-4.9) X10*3/uL [place] # (Auto) (0.1-1.2) X10*3/uL Eos # (Auto) (0.0-0.4) X10*3/uL Baso # (Auto) (0.0-0.2) X10*3/uL Abs Immat Gran (auto) (0.00-0.03) X10*3/uL Absolute Neuts (auto) (2.0-8.3) x10*3/uL Absolute Nucleated RBC (0.0-0.012) X10*3/uL Nucleated RBC % (auto) (0.0-0.2) /100WBC Whole Blood PT 12.8 (11.1-13.5) sec Whole Blood INR 1.1 (0.9-1.1) O2 Saturation 86.0 % ABG pH at Pt Temp 7.26 L (7.35-7.45) ABG pCO2 at Pt Temp 88 H* (32-45) mmHg ABG pO2 at Pt Temp 64 L (83-108) mmHg ABG HCO3 40 H (22-26) mmol/L ABG Base Excess (Actual) 9.3 mmol/L Sodium (135-145) mmol/L Potassium (3.3-5.1) mmol/L Chloride (96-108) mmol/L Carbon Dioxide (22-29) mmol/L Anion Gap (12-20) BUN (9-16) mg/dL Creatinine (0.5-1.4) mg/dL Estim Creat Clear Calc Estimated GFR Random Glucose (60-115) mg/dL Lactic Acid 1.0 (0.5-2.0) mmol/L Calcium (8.4-10.2) mg/dL Total Bilirubin (0.0-1.0) mg/dL Direct Bilirubin (0.0-0.5) mg/dL AST (5-31) U/L ALT (0-31) U/L Alkaline Phosphatase (39-117) U/L Troponin I High Sens (<3.5-17.0) ng/L B-Natriuretic Peptide (<100) pg/mL Total Protein (6.5-8.0) g/dL Albumin (3.5-5.0) g/dL Lipase (8-78) U/L Urine Color Urine Appearance Urine pH (5.0-8.0) Ur Specific [place] (1.005-1.025) Urine Protein (NEG-TRACE) MG/DL Urine Glucose (UA) (NEG) MG/DL Urine Ketones (NEG) MG/DL Urine Blood (NEG) Urine Nitrite (NEG) Ur Leukocyte Esterase (NEG) Urine RBC (0) /HPF Urine WBC (0-4) /HPF Ur Squamous Epith Cells /LPF Calcium Oxalate Crystal /LPF Urine Bacteria /LPF Urine Opiates Screen (Not Detect) Urine Fentanyl Screen (Not Detect) Ur Barbiturates Screen (Not Detect) Ur Phencyclidine Scrn (Not Detect) Ur Amphetamines Screen (Not Detect) U Benzodiazepines Scrn (Not Detect) Urine Cocaine Screen (Not Detect) U Marijuana (THC) Screen (Not Detect) 11/18/21 11/18/21 11/18/21 Range/Units 11:27 11:27 11:54 WBC 11.0 H (4.8-10.8) X10*3/uL RBC 4.19 L (4.20-5.50) X10*6/uL Hgb 11.7 L (12.0-16.0) g/dl Hct 39.8 (37.0-47.0) % MCV 95.0 (80.0-98.0) fL MCH 27.9 (27.0-33.0) pg MCHC 29.4 L (31.0-35.0) g/dl RDW 15.7 (11.0-16.0) % Plt Count 300 (160-400) X10*3/uL MPV 10.0 (9.4-12.3) fL Immature Gran % (Auto) 0.5 H (0.0-0.4) % Neut % (Auto) 84.2 H (45-73) % Lymph % (Auto) 9.6 L (20-40) % [place] % (Auto) 5.4 (2-11) % Eos % (Auto) 0.1 (0-4) % Baso % (Auto) 0.2 (0-2) % Lymph # (Auto) 1.1 L (1.2-4.9) X10*3/uL [place] # (Auto) 0.6 (0.1-1.2) X10*3/uL Eos # (Auto) 0.0 (0.0-0.4) X10*3/uL Baso # (Auto) 0.0 (0.0-0.2) X10*3/uL Abs Immat Gran (auto) 0.05 H (0.00-0.03) X10*3/uL Absolute Neuts (auto) 9.3 H (2.0-8.3) x10*3/uL Absolute Nucleated RBC 0.000 (0.0-0.012) X10*3/uL Nucleated RBC % (auto) 0.0 (0.0-0.2) /100WBC Whole Blood PT (11.1-13.5) sec Whole Blood INR (0.9-1.1) O2 Saturation % ABG pH at Pt Temp (7.35-7.45) ABG pCO2 at Pt Temp (32-45) mmHg ABG pO2 at Pt Temp (83-108) mmHg ABG HCO3 (22-26) mmol/L ABG Base Excess (Actual) mmol/L Sodium (135-145) mmol/L Potassium (3.3-5.1) mmol/L Chloride (96-108) mmol/L Carbon Dioxide (22-29) mmol/L Anion Gap (12-20) BUN (9-16) mg/dL Creatinine (0.5-1.4) mg/dL Estim Creat Clear Calc Estimated GFR Random Glucose (60-115) mg/dL Lactic Acid (0.5-2.0) mmol/L Calcium (8.4-10.2) mg/dL Total Bilirubin (0.0-1.0) mg/dL Direct Bilirubin (0.0-0.5) mg/dL AST (5-31) U/L ALT (0-31) U/L Alkaline Phosphatase (39-117) U/L Troponin I High Sens (<3.5-17.0) ng/L B-Natriuretic Peptide (<100) pg/mL Total Protein (6.5-8.0) g/dL Albumin (3.5-5.0) g/dL Lipase (8-78) U/L Urine Color YELLOW Urine Appearance HAZY Urine pH 6.0 (5.0-8.0) Ur Specific [place] >= 1.030 H (1.005-1.025) Urine Protein 1+ H (NEG-TRACE) MG/DL Urine Glucose (UA) NEG (NEG) MG/DL Urine Ketones NEG (NEG) MG/DL Urine Blood NEG (NEG) Urine Nitrite NEG (NEG) Ur Leukocyte Esterase NEG (NEG) Urine RBC 0-2 (0) /HPF Urine WBC 1-4 (0-4) /HPF Ur Squamous Epith Cells 4+ /LPF Calcium Oxalate Crystal TRACE /LPF Urine Bacteria TRACE /LPF Urine Opiates Screen Not Detected (Not Detect) Urine Fentanyl Screen Not Detected (Not Detect) Ur Barbiturates Screen Not Detected (Not Detect) Ur Phencyclidine Scrn Not Detected (Not Detect) Ur Amphetamines Screen Not Detected (Not Detect) U Benzodiazepines Scrn Not Detected (Not Detect) Urine Cocaine Screen Not Detected (Not Detect) U Marijuana (THC) Screen Not Detected (Not Detect) 11/18/21 11/18/21 11/18/21 Range/Units 11:54 11:54 11:54 WBC (4.8-10.8) X10*3/uL RBC (4.20-5.50) X10*6/uL Hgb (12.0-16.0) g/dl Hct (37.0-47.0) % MCV (80.0-98.0) fL MCH (27.0-33.0) pg MCHC (31.0-35.0) g/dl RDW (11.0-16.0) % Plt Count (160-400) X10*3/uL MPV (9.4-12.3) fL Immature Gran % (Auto) (0.0-0.4) % Neut % (Auto) (45-73) % Lymph % (Auto) (20-40) % [place] % (Auto) (2-11) % Eos % (Auto) (0-4) % Baso % (Auto) (0-2) % Lymph # (Auto) (1.2-4.9) X10*3/uL [place] # (Auto) (0.1-1.2) X10*3/uL Eos # (Auto) (0.0-0.4) X10*3/uL Baso # (Auto) (0.0-0.2) X10*3/uL Abs Immat Gran (auto) (0.00-0.03) X10*3/uL Absolute Neuts (auto) (2.0-8.3) x10*3/uL Absolute Nucleated RBC (0.0-0.012) X10*3/uL Nucleated RBC % (auto) (0.0-0.2) /100WBC Whole Blood PT (11.1-13.5) sec Whole Blood INR (0.9-1.1) O2 Saturation % ABG pH at Pt Temp (7.35-7.45) ABG pCO2 at Pt Temp (32-45) mmHg ABG pO2 at Pt Temp (83-108) mmHg ABG HCO3 (22-26) mmol/L ABG Base Excess (Actual) mmol/L Sodium 145 (135-145) mmol/L Potassium 4.7 (3.3-5.1) mmol/L Chloride 102 (96-108) mmol/L Carbon Dioxide 36 H (22-29) mmol/L Anion Gap 12 (12-20) BUN 16 (9-16) mg/dL Creatinine 0.69 (0.5-1.4) mg/dL Estim Creat Clear Calc 112.4 Estimated GFR > 60 Random Glucose 135 H (60-115) mg/dL Lactic Acid (0.5-2.0) mmol/L Calcium 8.8 (8.4-10.2) mg/dL Total Bilirubin 0.3 (0.0-1.0) mg/dL Direct Bilirubin 0.2 (0.0-0.5) mg/dL AST 34 H D (5-31) U/L ALT 46 H (0-31) U/L Alkaline Phosphatase 121 H D (39-117) U/L Troponin I High Sens 59.9 H* D (<3.5-17.0) ng/L B-Natriuretic Peptide 1028 H (<100) pg/mL Total Protein 7.1 (6.5-8.0) g/dL Albumin 4.0 D (3.5-5.0) g/dL Lipase 10 (8-78) U/L Urine Color Urine Appearance Urine pH (5.0-8.0) Ur Specific [place] (1.005-1.025) Urine Protein (NEG-TRACE) MG/DL Urine Glucose (UA) (NEG) MG/DL Urine Ketones (NEG) MG/DL Urine Blood (NEG) Urine Nitrite (NEG) Ur Leukocyte Esterase (NEG) Urine RBC (0) /HPF Urine WBC (0-4) /HPF Ur Squamous Epith Cells /LPF Calcium Oxalate Crystal /LPF Urine Bacteria /LPF Urine Opiates Screen (Not Detect) Urine Fentanyl Screen (Not Detect) Ur Barbiturates Screen (Not Detect) Ur Phencyclidine Scrn (Not Detect) Ur Amphetamines Screen (Not Detect) U Benzodiazepines Scrn (Not Detect) Urine Cocaine Screen (Not Detect) U Marijuana (THC) Screen (Not Detect) Imaging Data Chest x-ray: Attestation: I personally reviewed and interpreted this imaging study as follows: Radiologist's impression: Stable enlargement of cardiac silhouette. Head CT: Attestation: I personally reviewed and interpreted this imaging study as follows: Radiologist's impression: No acute findings. Nonspecific periventricular white matter disease similar to previous exam. ECG Data ECG #1: Attestation: I personally reviewed and interpreted this ECG as follows: Interpretation: Sinus tachycardia with PACs, rate of 124, normal intervals, nonspecific ST-T changes. Critical Care Time Critical Care Time Critical Care Time: Yes Total Critical Care Time: 60 Attestation: I spent 60 minutes providing critical care service to the patient, this i ncluding time spent at the bedside to evaluate the patient, reassess the patient, monitoring vital signs, review labs, and radiographic studies, counseling the patient/family, discussing the case with consultants, disposition the patient. Discharge Plan Discharge Clinical Impression: Acute and chronic respiratory failure with hypercapnia Patient Disposition: Admitted As Inpatient
[2021-11-18 11:42] LABS: Appearance Urine HAZY; Color Urine YELLOW; Glucose Urine UA NEG (NEG); Leukocyte Esterase Urine NEG (NEG); Nitrite Urine NEG (NEG); Specific Gravity - Urine >= 1.030 (1.005-1.025); UACC Culture Trigger NO; Urine Blood NEG (NEG); Urine Ketones NEG (NEG); Urine Protein 1+ MG/DL (NEG-TRACE)
--- NOTE | 2021-11-18 11:48 | PC.NURSE ---
Sabinean held until urine results are back per Dr. Borrero.
[2021-11-18 11:50] LABS: ABG Refer to POC result
[2021-11-18 11:51] LABS: Amphetamine Screen Urine Not Detected (Not Detect); Barbiturates, Urine Not Detected (Not Detect); Benzodiazepines Screen Urine Not Detected (Not Detect); Cannabinoid Screen Urine Not Detected (Not Detect); Cocaine Screen Urine Not Detected (Not Detect); Fentanyl, urine Not Detected (Not Detect); Opiate Screen Urine Not Detected (Not Detect); Phencyclidine Screen Urine Not Detected (Not Detect)
--- NOTE | 2021-11-18 11:59 | PC.NURSE ---
Kiersten held due to no substances being detected in patient.
[2021-11-18 12:00] LABS: MANUAL DIFF FLAG NO
[2021-11-18 12:02] LABS: Basophils Percent Auto 0.2 % (0-2); Eosinophils Percent Auto 0.1 % (0-4); Hematocrit 39.8 % (37.0-47.0); Hemoglobin 11.7 g/dl (12.0-16.0); Imm Gran Abs Auto 0.05 X10*3/uL (0.00-0.03); Imm Gran Pct Auto 0.5 % (0.0-0.4); Lymphocytes Absolute Auto 1.1 X10*3/uL (1.2-4.9); Lymphocytes Percent Auto 9.6 % (20-40); Mean Corpuscular HGB Conc 29.4 g/dl (31.0-35.0); Mean Corpuscular Hemoglobin 27.9 pg (27.0-33.0); Monocytes Absolute Auto 0.6 X10*3/uL (0.1-1.2); Monocytes Percent Auto 5.4 % (2-11); Neutrophils Absolute Auto 9.3 x10*3/uL (2.0-8.3); Neutrophils Percent Auto 84.2 % (45-73); Platelet Count 300 X10*3/uL (160-400); Red Blood Count 4.19 X10*6/uL (4.20-5.50); Red Cell Distribution Width 15.7 % (11.0-16.0)
[2021-11-18 12:17] LABS: Bacteria Urine TRACE /LPF; Calcium Oxalate Crystals Urine TRACE /LPF; RBC Urine 0-2 /HPF (0); Squamous Epithelial Cell Urine 4+ /LPF
[2021-11-18 12:21] LABS: B Type Natriuretic Peptide 1028 pg/mL (<100)
[2021-11-18 12:29] LABS: Alanine Aminotransferase 46 U/L (0-31); Alkaline Phosphatase 121 U/L (39-117); Anion Gap 12 (12-20); Aspartate Amino Transferase 34 U/L (5-31); Bilirubin Direct 0.2 mg/dL (0.0-0.5); Bilirubin Total 0.3 mg/dL (0.0-1.0); Blood Urea Nitrogen 16 mg/dL (9-16); Calcium 8.8 mg/dL (8.4-10.2); Carbon Dioxide 36 mmol/L (22-29); Chloride 102 mmol/L (96-108); Creatinine Clr Calc Pharmacy 112.4; Estimated Glomerular Filt Rate > 60; Glucose Random 135 mg/dL (60-115); Lipase 10 U/L (8-78); Potassium 4.7 mmol/L (3.3-5.1); Sodium 145 mmol/L (135-145); Total Protein 7.1 g/dL (6.5-8.0)
--- NOTE | 2021-11-18 12:30 | PM.CCHP ---
History of Present Illness Date of Service: 11/18/21 Chief Complaint: Alteration of mental status and shortness of breath 61-year-old lady with underlying history of substance abuse prior CVA with residual left-sided deficits, obesity with obesity hyperventilation syndrome, COPD on supplemental oxygen admitted on 11/18/2021 with worsening shortness of breath over several days and confusion. On ER evaluation patient noted to be in acute hypercapnic and hypoxic respiratory failure requiring initiation of BiPAP support with significant improvement. Patient has been started on acetazolamide and admitted to the intensive care unit. Review of Systems Review of Systems: Yes Unobtainable due to mental status PMFSH Past Medical History Medical History (Updated 11/18/21 @ 12:34 by Tadeo Orantes MD) Congestive heart failure Diabetes mellitus Essential hypertension Moderate asthma Oxygen dependent Family History Family History Father Medical history unknown Mother Diabetes Hypertension Father Medical history unknown Mother Hypertension Diabetes Other Substance use disorder Surgical History Surgical History History of cholecystectomy History of cholecystectomy History of open reduction and internal fixation (ORIF) procedure History of open reduction and internal fixation (ORIF) procedure History of tubal ligation History of tubal ligation Social History Social History Household Members: Spouse Housing: Apartment Do you presently have visiting nurse or other home services: Yes Alcohol intake: former Patient Tobacco Use Status: Former Tobacco user Tobacco use type: Cigarette Cigarette Packs Per Day: 0.75 Cigarettes Per Day: 15.0 Years Smoked: 31 years e-Cigarette/Vaping Use: Never Used Second Hand Smoke Exposure: Yes Advance Directives: Yes Advance Directives on File: Yes Advance Directives Date on File: 08/28/21 service: No Current occupational status: other Cognitive needs: Yes (walker/wheelchair/cane) Hearing needs: No Vision needs: Yes Meds Allergies Allergy/AdvReac Type Severity Reaction Status Date / Time No Known Allergies Allergy Verified 11/02/21 13:24 Active Medications: Current Medications Acetazolamide (Acetazolamide Sodium 500 Mg Vial) 250 mg IVPUSH Q8H EUGENIO Heparin Sodium (Porcine) (Heparin Sodium,Porcine 5,000 Unit/Ml Vial) 5,000 unit SUBCUT Q8H EUGENIO Insulin Human Lispro (Insulin Lispro 100 Unit/Ml 3 Ml Vial) 0 unit SUBCUT Q6H EUGENIO; Protocol Pharmacy Consult (Consult Rx Perform Med Rec) 1 each MISCELLANE ONCE PRN PRN Reason: Consult order Home Medications Medication Instructions Recorded Confirmed Last Taken Type albuterol sulfate 1 amp inhalation Q4H PRN wheezing 08/27/21 11/02/21 Unknown History sennosides 8.6 mg tablet (senna) 17.2 mg PO DAILY 09/28/21 11/02/21 10/10/21 History thiamine HCl (vitamin B1) 100 mg 50 mg PO DAILY 09/28/21 11/02/21 10/10/21 History tablet Physical Exam Vital Signs: Vital Signs: Last Vital Signs Pulse 116 H 11/18/21 11:49 Resp 16 11/18/21 11:49 BP 179/100 H 11/18/21 11:49 Pulse Ox 89 L 11/18/21 11:49 O2 Del Method 11/18/21 11:49 Oxygen Flow Rate 10 11/18/21 11:05 BMI result Body Mass Index 41.4 Const: General: no acute distress and lethargic (Arousable, confused) Nutritional Appearance: obese Orientation/consciousness: lethargic (Arousable, confused) Eyes: Sclerae: sclerae normal EOM: EOMs intact bilaterally Neck: Neck: Yes no lymphadenopathy, Yes trachea midline and Yes supple Resp: Effort & Inspection: normal respiratory effort (On BiPAP) and no respiratory distress Auscultation: crackles (Diffuse bilateral) Cardio: Rate: tachycardic Rhythm: regular rhythm Heart sounds: no gallops, no murmurs and no rubs GI: Palpation (GI): Soft to palpation and Other GI palpation findings present ( Nontender) Auscultation: normal bowel sounds Extrem: General: No clubbing, No cyanosis and Yes edema (1+ bilateral) Results Labs CBC and Chem 7: 11/18/21 11:54 11/18/21 11:54 Labs: Laboratory Results - last 24 hr 11/18/21 11/18/21 11/18/21 10:46 10:51 11:04 MCV MCH MCHC RDW Plt Count MPV Immature Gran % (Auto) Neut % (Auto) Lymph % (Auto) [place] % (Auto) Eos % (Auto) Baso % (Auto) Lymph # (Auto) [place] # (Auto) Eos # (Auto) Baso # (Auto) Abs Immat Gran (auto) Absolute Neuts (auto) Absolute Nucleated RBC Nucleated RBC % (auto) Whole Blood PT 12.8 Whole Blood INR 1.1 O2 Saturation 86.0 ABG pH at Pt Temp 7.26 L ABG pCO2 at Pt Temp 88 H* ABG pO2 at Pt Temp 64 L ABG HCO3 40 H ABG Base Excess (Actual) 9.3 Anion Gap Estim Creat Clear Calc Estimated GFR Random Glucose Lactic Acid 1.0 Calcium Total Bilirubin Direct Bilirubin AST ALT Alkaline Phosphatase B-Natriuretic Peptide Total Protein Albumin Lipase Urine Color Urine Appearance Urine pH Ur Specific [place] Urine Protein Urine Glucose (UA) Urine Ketones Urine Blood Urine Nitrite Ur Leukocyte Esterase Urine RBC Urine WBC Ur Squamous Epith Cells Calcium Oxalate Crystal Urine Bacteria Urine Opiates Screen Urine Fentanyl Screen Ur Barbiturates Screen Ur Phencyclidine Scrn Ur Amphetamines Screen U Benzodiazepines Scrn Urine Cocaine Screen U Marijuana (THC) Screen 11/18/21 11/18/21 11/18/21 11:27 11:27 11:54 MCV 95.0 MCH 27.9 MCHC 29.4 L RDW 15.7 Plt Count 300 MPV 10.0 Immature Gran % (Auto) 0.5 H Neut % (Auto) 84.2 H Lymph % (Auto) 9.6 L [place] % (Auto) 5.4 Eos % (Auto) 0.1 Baso % (Auto) 0.2 Lymph # (Auto) 1.1 L [place] # (Auto) 0.6 Eos # (Auto) 0.0 Baso # (Auto) 0.0 Abs Immat Gran (auto) 0.05 H Absolute Neuts (auto) 9.3 H Absolute Nucleated RBC 0.000 Nucleated RBC % (auto) 0.0 Whole Blood PT Whole Blood INR O2 Saturation ABG pH at Pt Temp ABG pCO2 at Pt Temp ABG pO2 at Pt Temp ABG HCO3 ABG Base Excess (Actual) Anion Gap Estim Creat Clear Calc Estimated GFR Random Glucose Lactic Acid Calcium Total Bilirubin Direct Bilirubin AST ALT Alkaline Phosphatase B-Natriuretic Peptide Total Protein Albumin Lipase Urine Color YELLOW Urine Appearance HAZY Urine pH 6.0 Ur Specific [place] >= 1.030 H Urine Protein 1+ H Urine Glucose (UA) NEG Urine Ketones NEG Urine Blood NEG Urine Nitrite NEG Ur Leukocyte Esterase NEG Urine RBC 0-2 Urine WBC 1-4 Ur Squamous Epith Cells 4+ Calcium Oxalate Crystal TRACE Urine Bacteria TRACE Urine Opiates Screen Not Detected Urine Fentanyl Screen Not Detected Ur Barbiturates Screen Not Detected Ur Phencyclidine Scrn Not Detected Ur Amphetamines Screen Not Detected U Benzodiazepines Scrn Not Detected Urine Cocaine Screen Not Detected U Marijuana (THC) Screen Not Detected 11/18/21 11/18/21 11:54 11:54 MCV MCH MCHC RDW Plt Count MPV Immature Gran % (Auto) Neut % (Auto) Lymph % (Auto) [place] % (Auto) Eos % (Auto) Baso % (Auto) Lymph # (Auto) [place] # (Auto) Eos # (Auto) Baso # (Auto) Abs Immat Gran (auto) Absolute Neuts (auto) Absolute Nucleated RBC Nucleated RBC % (auto) Whole Blood PT Whole Blood INR O2 Saturation ABG pH at Pt Temp ABG pCO2 at Pt Temp ABG pO2 at Pt Temp ABG HCO3 ABG Base Excess (Actual) Anion Gap 12 Estim Creat Clear Calc 112.4 Estimated GFR > 60 Random Glucose 135 H Lactic Acid Calcium 8.8 Total Bilirubin 0.3 Direct Bilirubin 0.2 AST 34 H D ALT 46 H Alkaline Phosphatase 121 H D B-Natriuretic Peptide 1028 H Total Protein 7.1 Albumin 4.0 D Lipase 10 Urine Color Urine Appearance Urine pH Ur Specific [place] Urine Protein Urine Glucose (UA) Urine Ketones Urine Blood Urine Nitrite Ur Leukocyte Esterase Urine RBC Urine WBC Ur Squamous Epith Cells Calcium Oxalate Crystal Urine Bacteria Urine Opiates Screen Urine Fentanyl Screen Ur Barbiturates Screen Ur Phencyclidine Scrn Ur Amphetamines Screen U Benzodiazepines Scrn Urine Cocaine Screen U Marijuana (THC) Screen Imaging Radiologist's Impressions: Impressions Head CT 11/18/21 11:01 IMPRESSION: No acute findings. Nonspecific periventricular white matter disease similar to previous exam. This critical result was discussed with Dr. Borrero at 1108 hours on 11/18/2021. It was ascertained that the content and urgency of the report was understood at the time of direct communication. Chest X-Ray 11/18/21 11:30 IMPRESSION: Stable enlargement of the cardiac silhouette. Assessment and Plan (1) Acute and chronic respiratory failure with hypercapnia: Status: Acute (2) COPD (chronic obstructive pulmonary disease): Status: Acute (3) Left-sided sensory deficit present: Status: Acute (4) Congestive heart failure: Qualifiers: Heart failure chronicity: acute on chronic Heart failure type: unspecified Qualified Code(s): I50.9 - Heart failure, unspecified Status: Acute (5) Diabetes mellitus: Qualifiers: Diabetes mellitus type: type 2 Diabetes mellitus custodial insulin use: without extermination inspector use Diabetes mellitus complication status: without complication Qualified Code(s): E11.9 - Type 2 diabetes mellitus without complications Status: Acute (6) Obesity: Status: Acute (7) Obesity hypoventilation syndrome: Status: Acute Plan Assessment: 61-year-old lady with underlying history of substance abuse, obesity/obesity hypoventilation syndrome, COPD, diabetes mellitus, and congestive heart failure admitted with worsening dyspnea and acute on chronic hypoxic and hypercapnic respiratory failure secondary to exacerbation of her underlying congestive heart failure. Plan: Neuro: No acute issues. Cardiac: Exacerbation of underlying congestive heart failure. 2D echocardiogram is ordered. Continue with diuresis. Pulmonary: Acute on chronic hypoxic and hypercapnic respiratory failure now requiring BiPAP support, continue to titrate off as tolerated. Renal: No acute issues. Endo: No acute issues. Underlying diabetes mellitus. GI: No acute issues. ID: No acute issues Heme/Onc: No acute issues. Psych: No acute issues. Miscellaneous: No acute issues. Prophylaxis: Heparin Diet: NPO while on BiPAP Critical care time spent: 45 minutes
[2021-11-18 12:33] LABS: Troponin-I High Sensitivity 59.9 ng/L (<3.5-17.0)
--- NOTE | 2021-11-18 12:48 | PC.NURSE ---
DR. Borrero aware of patient blood pressure.
[2021-11-18 12:59] LABS: Influenza A PCR NEGATIVE (Negative); Influenza B PCR NEGATIVE (Negative); Resp Syncy Virus RNA Qual PCR NEGATIVE (Negative); SARS COV2 PCR INHOUSE NEGATIVE (Negative)
[2021-11-18 13:11] LABS: ABG Base Excess 10.5 mmol/L; ABG HCO3 40 mmol/L (22-26); ABG pCO2 82 mmHg (32-45); ABG pO2 56 mmHg (83-108)
[2021-11-18] MEDS: Heparin Sodium,Porcine 5,000 UNIT/ML VIAL 5000 UNIT SUBCUT ×2 (13:20→22:09)
[2021-11-18] MEDS: acetaZOLAMIDE sodium 500 MG VIAL 250 MG IVPUSH ×2 (13:20→22:09)
[2021-11-18] MEDS: levoFLOXacin/D5W 750 MG/150 ML PIGGYBACK 100 MG IV (13:20)
[2021-11-18 13:28] LABS: ABG Refer to POC result
--- NOTE | 2021-11-18 14:03 | PHA.MEDREC ---
Pharmacy Consult ? Medication Reconciliation Pharmacy has completed the medication reconciliation. Pt's daughter at bedside, tried to contact vulcanized fiber unit operator for med list who is also in the hospital. Later, pt's significant other came in with bag of home medications, cross checked with claim history.
[2021-11-18 14:54] LABS: Glucose, Whole Blood 113 mg/dL (60-115)
[2021-11-18 17:15] LABS: Glucose, Whole Blood 93 mg/dL (60-115)
[2021-11-18 17:57] LABS: VBG Base Excess 5.3 mmol/L; VBG HCO3 31 mmol/L (22-26); VBG pCO2 51 mmHg; VBG pH 7.39 (7.32-7.43); VBG pO2 53 mmHg
[2021-11-18 17:58] LABS: Venous Blood Gas Refer to POC result
[2021-11-18 18:07] LABS: Anion Gap 10 (12-20); Blood Urea Nitrogen 16 mg/dL (9-16); Calcium 8.7 mg/dL (8.4-10.2); Carbon Dioxide 37 mmol/L (22-29); Chloride 102 mmol/L (96-108); Creatinine Clr Calc Pharmacy 119.3; Estimated Glomerular Filt Rate > 60; Glucose Random 97 mg/dL (60-115); Potassium 4.3 mmol/L (3.3-5.1); Sodium 145 mmol/L (135-145)
[2021-11-18] MEDS: Furosemide 40 MG/4 ML VIAL IVPUSH (18:53)
[2021-11-19] VITALS (20 sets, daily range): BP systolic 121–165; BP diastolic 81–109; PULSE 81–124; RESP 9–22; TEMP 36.4–37.1; O2SAT 90–99; BMI 40.1
[2021-11-19 00:03] LABS: Glucose, Whole Blood 96 mg/dL (60-115)
[2021-11-19 05:35] LABS: VBG Base Excess 14.2 mmol/L; VBG HCO3 41 mmol/L (22-26); VBG pCO2 62 mmHg; VBG pH 7.42 (7.32-7.43); VBG pO2 47 mmHg
[2021-11-19 05:39] LABS: MANUAL DIFF FLAG NO
[2021-11-19 05:43] LABS: Venous Blood Gas Refer to POC result
[2021-11-19 05:44] LABS: Basophils Percent Auto 0.3 % (0-2); Eosinophils Absolute Auto 0.1 X10*3/uL (0.0-0.4); Eosinophils Percent Auto 0.9 % (0-4); Hematocrit 39.4 % (37.0-47.0); Hemoglobin 11.6 g/dl (12.0-16.0); Imm Gran Abs Auto 0.02 X10*3/uL (0.00-0.03); Imm Gran Pct Auto 0.3 % (0.0-0.4); Mean Corpuscular HGB Conc 29.4 g/dl (31.0-35.0); Mean Corpuscular Hemoglobin 27.2 pg (27.0-33.0); Mean Corpuscular Volume 92.5 fL (80.0-98.0); Mean Platelet Volume 9.9 fL (9.4-12.3); Monocytes Absolute Auto 0.7 X10*3/uL (0.1-1.2); Monocytes Percent Auto 8.5 % (2-11); Neutrophils Absolute Auto 5.1 x10*3/uL (2.0-8.3); Platelet Count 298 X10*3/uL (160-400); Red Blood Count 4.26 X10*6/uL (4.20-5.50); Red Cell Distribution Width 15.5 % (11.0-16.0); White Blood Count 7.8 X10*3/uL (4.8-10.8)
[2021-11-19 05:58] LABS: Glucose, Whole Blood 87 mg/dL (60-115)
[2021-11-19] MEDS: acetaZOLAMIDE sodium 500 MG VIAL 250 MG IVPUSH ×3 (05:58→19:43)
[2021-11-19] MEDS: Heparin Sodium,Porcine 5,000 UNIT/ML VIAL 5000 UNIT SUBCUT ×3 (05:58→19:43)
[2021-11-19 06:03] LABS: Albumin Level 3.8 g/dL (3.5-5.0); Anion Gap 12 (12-20); Blood Urea Nitrogen 18 mg/dL (9-16); Calcium 8.9 mg/dL (8.4-10.2); Carbon Dioxide 38 mmol/L (22-29); Chloride 100 mmol/L (96-108); Estimated Glomerular Filt Rate > 60; Glucose Random 91 mg/dL (60-115); Magnesium 1.8 mg/dL (1.6-2.6); Phosphorus 3.1 mg/dL (2.7-4.5); Potassium 4.1 mmol/L (3.3-5.1); Sodium 146 mmol/L (135-145)
[2021-11-19] MEDS: Acetaminophen 325 MG TABLET 650 MG PO ×2 (08:42→19:42)
[2021-11-19] MEDS: Metoprolol Succinate ER 50 MG TAB.ER.24H PO (08:42)
--- NOTE | 2021-11-19 09:50 | PC.NURSE ---
diplomatic interpreter/translator at bedside for assessment and medp ass. pt informed that she is to be transferred out of the ICU. md spoke with pt and family member at bedside. pt bathed this shift. pt taken off of bipap this am by RT, on n/c tolerating well. pt c/o headache and req food. md informed, tyl administered as ordered and food was ordered for pt post md placing diet order. safety and fall precautions in place. call [facility]ont within reach. pt repo'ed q2. purewick in place.
--- NOTE | 2021-11-19 10:48 | P.PNCC_ITS ---
Subjective Subjective Date of Service: 11/19/21 Interval History: 61-year-old lady with underlying history of substance abuse prior CVA with residual left-sided deficits, obesity with obesity hyperventilation syndrome, COPD on supplemental oxygen admitted on 11/18/2021 with worsening shortness of breath over several days and confusion. On ER evaluation patient noted to be in acute hypercapnic and hypoxic respiratory failure requiring initiation of BiPAP support with significant improvement. Patient has been started on acetazolamide and admitted to the intensive care unit. No events overnight. Titrated off BiPAP. Critical Care Time (minutes): 0 Physical Exam Vital Signs: Vital Signs: Last Vital Signs Temp 98.2 F 11/19/21 08:00 Pulse 102 H 11/19/21 10:00 Resp 12 11/19/21 10:00 BP 143/89 H 11/19/21 10:00 Pulse Ox 94 11/19/21 10:00 O2 Del Method 11/19/21 10:00 O2 Flow Rate 2 11/19/21 10:00 FiO2 24 11/19/21 07:00 Oxygen Flow Rate 10 11/18/21 11:05 BMI result Body Mass Index 40.1 Const: General: no acute distress, alert and awake Nutritional Appearance: obese Eyes: Sclerae: sclerae normal EOM: EOMs intact bilaterally Neck: Neck: Yes no lymphadenopathy, Yes trachea midline and Yes supple Resp: Effort & Inspection: normal respiratory effort and no respiratory distress Auscultation: clear to auscultation bilaterally Cardio: Rate: tachycardic Rhythm: regular rhythm Heart sounds: no gallops, no murmurs and no rubs GI: Palpation (GI): Soft to palpation and Other GI palpation findings present ( Nontender) Auscultation: normal bowel sounds Extrem: General: No clubbing, No cyanosis and Yes edema ( Trace bilateral) Objective Data Labs CBC & Chem 7: 11/19/21 05:30 11/19/21 05:30 Labs: Laboratory Results - last 24 hr 11/18/21 11/18/21 11/18/21 10:46 10:51 11:04 WBC RBC Hgb Hct MCV MCH MCHC RDW Plt Count MPV Immature Gran % (Auto) Neut % (Auto) Lymph % (Auto) [place] % (Auto) Eos % (Auto) Baso % (Auto) Lymph # (Auto) [place] # (Auto) Eos # (Auto) Baso # (Auto) Abs Immat Gran (auto) Absolute Neuts (auto) Absolute Nucleated RBC Nucleated RBC % (auto) Whole Blood PT 12.8 Whole Blood INR 1.1 O2 Saturation 86.0 ABG pH at Pt Temp 7.26 L ABG pCO2 at Pt Temp 88 H* ABG pO2 at Pt Temp 64 L ABG HCO3 40 H ABG Base Excess (Actual) 9.3 VBG pH VBG pCO2 VBG pO2 VBG HCO3 VBG O2 Saturation VBG Base Excess Sodium Potassium Chloride Carbon Dioxide Anion Gap BUN Creatinine Estim Creat Clear Calc Estimated GFR POC Glucose Random Glucose Lactic Acid 1.0 Calcium Phosphorus Magnesium Total Bilirubin Direct Bilirubin AST ALT Alkaline Phosphatase Troponin I High Sens B-Natriuretic Peptide Total Protein Albumin Lipase Urine Color Urine Appearance Urine pH Ur Specific [place] Urine Protein Urine Glucose (UA) Urine Ketones Urine Blood Urine Nitrite Ur Leukocyte Esterase Urine RBC Urine WBC Ur Squamous Epith Cells Calcium Oxalate Crystal Urine Bacteria Urine Opiates Screen Urine Fentanyl Screen Ur Barbiturates Screen Ur Phencyclidine Scrn Ur Amphetamines Screen U Benzodiazepines Scrn Urine Cocaine Screen U Marijuana (THC) Screen Influenza Type A (PCR) Influenza Type B (PCR) RSV RNA Qual (PCR) SARS-CoV-2 RNA (RT-PCR) 11/18/21 11/18/21 11/18/21 11:27 11:27 11:54 WBC 11.0 H RBC 4.19 L Hgb 11.7 L Hct 39.8 MCV 95.0 MCH 27.9 MCHC 29.4 L RDW 15.7 Plt Count 300 MPV 10.0 Immature Gran % (Auto) 0.5 H Neut % (Auto) 84.2 H Lymph % (Auto) 9.6 L [place] % (Auto) 5.4 Eos % (Auto) 0.1 Baso % (Auto) 0.2 Lymph # (Auto) 1.1 L [place] # (Auto) 0.6 Eos # (Auto) 0.0 Baso # (Auto) 0.0 Abs Immat Gran (auto) 0.05 H Absolute Neuts (auto) 9.3 H Absolute Nucleated RBC 0.000 Nucleated RBC % (auto) 0.0 Whole Blood PT Whole Blood INR O2 Saturation ABG pH at Pt Temp ABG pCO2 at Pt Temp ABG pO2 at Pt Temp ABG HCO3 ABG Base Excess (Actual) VBG pH VBG pCO2 VBG pO2 VBG HCO3 VBG O2 Saturation VBG Base Excess Sodium Potassium Chloride Carbon Dioxide Anion Gap BUN Creatinine Estim Creat Clear Calc Estimated GFR POC Glucose Random Glucose Lactic Acid Calcium Phosphorus Magnesium Total Bilirubin Direct Bilirubin AST ALT Alkaline Phosphatase Troponin I High Sens B-Natriuretic Peptide Total Protein Albumin Lipase Urine Color YELLOW Urine Appearance HAZY Urine pH 6.0 Ur Specific [place] >= 1.030 H Urine Protein 1+ H Urine Glucose (UA) NEG Urine Ketones NEG Urine Blood NEG Urine Nitrite NEG Ur Leukocyte Esterase NEG Urine RBC 0-2 Urine WBC 1-4 Ur Squamous Epith Cells 4+ Calcium Oxalate Crystal TRACE Urine Bacteria TRACE Urine Opiates Screen Not Detected Urine Fentanyl Screen Not Detected Ur Barbiturates Screen Not Detected Ur Phencyclidine Scrn Not Detected Ur Amphetamines Screen Not Detected U Benzodiazepines Scrn Not Detected Urine Cocaine Screen Not Detected U Marijuana (THC) Screen Not Detected Influenza Type A (PCR) Influenza Type B (PCR) RSV RNA Qual (PCR) SARS-CoV-2 RNA (RT-PCR) 11/18/21 11/18/21 11/18/21 11:54 11:54 11:54 WBC RBC Hgb Hct MCV MCH MCHC RDW Plt Count MPV Immature Gran % (Auto) Neut % (Auto) Lymph % (Auto) [place] % (Auto) Eos % (Auto) Baso % (Auto) Lymph # (Auto) [place] # (Auto) Eos # (Auto) Baso # (Auto) Abs Immat Gran (auto) Absolute Neuts (auto) Absolute Nucleated RBC Nucleated RBC % (auto) Whole Blood PT Whole Blood INR O2 Saturation ABG pH at Pt Temp ABG pCO2 at Pt Temp ABG pO2 at Pt Temp ABG HCO3 ABG Base Excess (Actual) VBG pH VBG pCO2 VBG pO2 VBG HCO3 VBG O2 Saturation VBG Base Excess Sodium 145 Potassium 4.7 Chloride 102 Carbon Dioxide 36 H Anion Gap 12 BUN 16 Creatinine 0.69 Estim Creat Clear Calc 112.4 Estimated GFR > 60 POC Glucose Random Glucose 135 H Lactic Acid Calcium 8.8 Phosphorus Magnesium Total Bilirubin 0.3 Direct Bilirubin 0.2 AST 34 H D ALT 46 H Alkaline Phosphatase 121 H D Troponin I High Sens 59.9 H* D B-Natriuretic Peptide 1028 H Total Protein 7.1 Albumin 4.0 D Lipase 10 Urine Color Urine Appearance Urine pH Ur Specific [place] Urine Protein Urine Glucose (UA) Urine Ketones Urine Blood Urine Nitrite Ur Leukocyte Esterase Urine RBC Urine WBC Ur Squamous Epith Cells Calcium Oxalate Crystal Urine Bacteria Urine Opiates Screen Urine Fentanyl Screen Ur Barbiturates Screen Ur Phencyclidine Scrn Ur Amphetamines Screen U Benzodiazepines Scrn Urine Cocaine Screen U Marijuana (THC) Screen Influenza Type A (PCR) Influenza Type B (PCR) RSV RNA Qual (PCR) SARS-CoV-2 RNA (RT-PCR) 11/18/21 11/18/21 11/18/21 11:54 12:58 13:03 WBC RBC Hgb Hct MCV MCH MCHC RDW Plt Count MPV Immature Gran % (Auto) Neut % (Auto) Lymph % (Auto) [place] % (Auto) Eos % (Auto) Baso % (Auto) Lymph # (Auto) [place] # (Auto) Eos # (Auto) Baso # (Auto) Abs Immat Gran (auto) Absolute Neuts (auto) Absolute Nucleated RBC Nucleated RBC % (auto) Whole Blood PT Whole Blood INR O2 Saturation 81.0 ABG pH at Pt Temp 7.30 L ABG pCO2 at Pt Temp 82 H* ABG pO2 at Pt Temp 56 L ABG HCO3 40 H ABG Base Excess (Actual) 10.5 VBG pH VBG pCO2 VBG pO2 VBG HCO3 VBG O2 Saturation VBG Base Excess Sodium Potassium Chloride Carbon Dioxide Anion Gap BUN Creatinine Estim Creat Clear Calc Estimated GFR POC Glucose 113 Random Glucose Lactic Acid Calcium Phosphorus Magnesium Total Bilirubin Direct Bilirubin AST ALT Alkaline Phosphatase Troponin I High Sens B-Natriuretic Peptide Total Protein Albumin Lipase Urine Color Urine Appearance Urine pH Ur Specific [place] Urine Protein Urine Glucose (UA) Urine Ketones Urine Blood Urine Nitrite Ur Leukocyte Esterase Urine RBC Urine WBC Ur Squamous Epith Cells Calcium Oxalate Crystal Urine Bacteria Urine Opiates Screen Urine Fentanyl Screen Ur Barbiturates Screen Ur Phencyclidine Scrn Ur Amphetamines Screen U Benzodiazepines Scrn Urine Cocaine Screen U Marijuana (THC) Screen Influenza Type A (PCR) NEGATIVE Influenza Type B (PCR) NEGATIVE RSV RNA Qual (PCR) NEGATIVE SARS-CoV-2 RNA (RT-PCR) NEGATIVE 11/18/21 11/18/21 11/18/21 17:11 17:44 17:52 WBC RBC Hgb Hct MCV MCH MCHC RDW Plt Count MPV Immature Gran % (Auto) Neut % (Auto) Lymph % (Auto) [place] % (Auto) Eos % (Auto) Baso % (Auto) Lymph # (Auto) [place] # (Auto) Eos # (Auto) Baso # (Auto) Abs Immat Gran (auto) Absolute Neuts (auto) Absolute Nucleated RBC Nucleated RBC % (auto) Whole Blood PT Whole Blood INR O2 Saturation ABG pH at Pt Temp ABG pCO2 at Pt Temp ABG pO2 at Pt Temp ABG HCO3 ABG Base Excess (Actual) VBG pH 7.39 VBG pCO2 51 VBG pO2 53 VBG HCO3 31 H VBG O2 Saturation 83.0 VBG Base Excess 5.3 Sodium 145 Potassium 4.3 Chloride 102 Carbon Dioxide 37 H Anion Gap 10 L BUN 16 Creatinine 0.65 Estim Creat Clear Calc 119.3 Estimated GFR > 60 POC Glucose 93 Random Glucose 97 Lactic Acid Calcium 8.7 Phosphorus Magnesium Total Bilirubin Direct Bilirubin AST ALT Alkaline Phosphatase Troponin I High Sens B-Natriuretic Peptide Total Protein Albumin Lipase Urine Color Urine Appearance Urine pH Ur Specific [place] Urine Protein Urine Glucose (UA) Urine Ketones Urine Blood Urine Nitrite Ur Leukocyte Esterase Urine RBC Urine WBC Ur Squamous Epith Cells Calcium Oxalate Crystal Urine Bacteria Urine Opiates Screen Urine Fentanyl Screen Ur Barbiturates Screen Ur Phencyclidine Scrn Ur Amphetamines Screen U Benzodiazepines Scrn Urine Cocaine Screen U Marijuana (THC) Screen Influenza Type A (PCR) Influenza Type B (PCR) RSV RNA Qual (PCR) SARS-CoV-2 RNA (RT-PCR) 11/18/21 11/19/21 11/19/21 23:53 05:30 05:30 WBC 7.8 RBC 4.26 Hgb 11.6 L Hct 39.4 MCV 92.5 MCH 27.2 MCHC 29.4 L RDW 15.5 Plt Count 298 MPV 9.9 Immature Gran % (Auto) 0.3 Neut % (Auto) 65.0 Lymph % (Auto) 25.0 [place] % (Auto) 8.5 Eos % (Auto) 0.9 Baso % (Auto) 0.3 Lymph # (Auto) 2.0 [place] # (Auto) 0.7 Eos # (Auto) 0.1 Baso # (Auto) 0.0 Abs Immat Gran (auto) 0.02 Absolute Neuts (auto) 5.1 Absolute Nucleated RBC 0.000 Nucleated RBC % (auto) 0.0 Whole Blood PT Whole Blood INR O2 Saturation ABG pH at Pt Temp ABG pCO2 at Pt Temp ABG pO2 at Pt Temp ABG HCO3 ABG Base Excess (Actual) VBG pH VBG pCO2 VBG pO2 VBG HCO3 VBG O2 Saturation VBG Base Excess Sodium 146 H Potassium 4.1 Chloride 100 Carbon Dioxide 38 H Anion Gap 12 BUN 18 H Creatinine 0.76 Estim Creat Clear Calc 102.0 Estimated GFR > 60 POC Glucose 96 Random Glucose 91 Lactic Acid Calcium 8.9 Phosphorus 3.1 Magnesium 1.8 Total Bilirubin Direct Bilirubin AST ALT Alkaline Phosphatase Troponin I High Sens B-Natriuretic Peptide Total Protein Albumin 3.8 Lipase Urine Color Urine Appearance Urine pH Ur Specific [place] Urine Protein Urine Glucose (UA) Urine Ketones Urine Blood Urine Nitrite Ur Leukocyte Esterase Urine RBC Urine WBC Ur Squamous Epith Cells Calcium Oxalate Crystal Urine Bacteria Urine Opiates Screen Urine Fentanyl Screen Ur Barbiturates Screen Ur Phencyclidine Scrn Ur Amphetamines Screen U Benzodiazepines Scrn Urine Cocaine Screen U Marijuana (THC) Screen Influenza Type A (PCR) Influenza Type B (PCR) RSV RNA Qual (PCR) SARS-CoV-2 RNA (RT-PCR) 11/19/21 11/19/21 05:31 05:55 WBC RBC Hgb Hct MCV MCH MCHC RDW Plt Count MPV Immature Gran % (Auto) Neut % (Auto) Lymph % (Auto) [place] % (Auto) Eos % (Auto) Baso % (Auto) Lymph # (Auto) [place] # (Auto) Eos # (Auto) Baso # (Auto) Abs Immat Gran (auto) Absolute Neuts (auto) Absolute Nucleated RBC Nucleated RBC % (auto) Whole Blood PT Whole Blood INR O2 Saturation ABG pH at Pt Temp ABG pCO2 at Pt Temp ABG pO2 at Pt Temp ABG HCO3 ABG Base Excess (Actual) VBG pH 7.42 VBG pCO2 62 VBG pO2 47 VBG HCO3 41 H VBG O2 Saturation 77.0 VBG Base Excess 14.2 Sodium Potassium Chloride Carbon Dioxide Anion Gap BUN Creatinine Estim Creat Clear Calc Estimated GFR POC Glucose 87 Random Glucose Lactic Acid Calcium Phosphorus Magnesium Total Bilirubin Direct Bilirubin AST ALT Alkaline Phosphatase Troponin I High Sens B-Natriuretic Peptide Total Protein Albumin Lipase Urine Color Urine Appearance Urine pH Ur Specific [place] Urine Protein Urine Glucose (UA) Urine Ketones Urine Blood Urine Nitrite Ur Leukocyte Esterase Urine RBC Urine WBC Ur Squamous Epith Cells Calcium Oxalate Crystal Urine Bacteria Urine Opiates Screen Urine Fentanyl Screen Ur Barbiturates Screen Ur Phencyclidine Scrn Ur Amphetamines Screen U Benzodiazepines Scrn Urine Cocaine Screen U Marijuana (THC) Screen Influenza Type A (PCR) Influenza Type B (PCR) RSV RNA Qual (PCR) SARS-CoV-2 RNA (RT-PCR) Progress Note: A&P Assessment and plan (1) Obesity hypoventilation syndrome: Status: Acute (2) Obesity: Status: Acute (3) Congestive heart failure: Status: Acute (4) Diabetes mellitus: Status: Acute (5) Acute and chronic respiratory failure with hypercapnia: Status: Acute (6) Oxygen dependent: Status: Acute (7) Left-sided sensory deficit present: Status: Acute Plan Assessment: 61-year-old lady with underlying history of substance abuse, obesity/obesity hypoventilation syndrome, COPD, diabetes mellitus, and congestive heart failure admitted with worsening dyspnea and acute on chronic hypoxic and hypercapnic respiratory failure secondary to exacerbation of her underlying congestive heart failure. Plan: Neuro: No acute issues. Cardiac: Exacerbation of underlying congestive heart failure. 2D echocardiogram is ordered. Continue with diuresis. Pulmonary: Acute on chronic hypoxic and hypercapnic respiratory failure initially requiring BiPAP support, now titrated off. supplemental oxygen dependent at baseline. Renal: No acute issues. Endo: No acute issues. Underlying diabetes mellitus. GI: No acute issues. ID: No acute issues Heme/Onc: No acute issues. Psych: No acute issues. Miscellaneous: No acute issues. Prophylaxis: Heparin Diet: diabetic Quality Stroke Does the patient have a stroke diagnosis?: No Reason for No Anti-thrombotic by Day Two: N/A - Med Ordered VTE Prior VTE?: No VTE Risk Level:: Medical - moderate - high VTE Device Contraindication: Treatment Not Indicated VTE Drug Contraindication: N/A - Med Ordered
[2021-11-19 11:45] LABS: Glucose, Whole Blood 94 mg/dL (60-115)
[2021-11-19 19:32] LABS: Glucose, Whole Blood 109 mg/dL (60-115)
[2021-11-20 03:29] VITALS: BP 131/92; PULSE 93; RESP 18; TEMP 36.8; O2SAT 91
[2021-11-20] MEDS: acetaZOLAMIDE sodium 500 MG VIAL 250 MG IVPUSH (05:34)
[2021-11-20] MEDS: Heparin Sodium,Porcine 5,000 UNIT/ML VIAL 5000 UNIT SUBCUT (05:36)
[2021-11-20 05:43] VITALS: BMI 40.1
[2021-11-20 06:22] LABS: MANUAL DIFF FLAG NO
[2021-11-20 06:28] LABS: VBG Base Excess 0.2 mmol/L; VBG HCO3 24 mmol/L (22-26); VBG pCO2 37 mmHg; VBG pH 7.41 (7.32-7.43); VBG pO2 70 mmHg
[2021-11-20 06:29] LABS: Basophils Percent Auto 0.3 % (0-2); Eosinophils Absolute Auto 0.3 X10*3/uL (0.0-0.4); Eosinophils Percent Auto 3.4 % (0-4); Hematocrit 38.9 % (37.0-47.0); Imm Gran Abs Auto 0.01 X10*3/uL (0.00-0.03); Imm Gran Pct Auto 0.1 % (0.0-0.4); Lymphocytes Absolute Auto 1.8 X10*3/uL (1.2-4.9); Lymphocytes Percent Auto 24.1 % (20-40); Mean Corpuscular HGB Conc 30.8 g/dl (31.0-35.0); Mean Corpuscular Hemoglobin 28.4 pg (27.0-33.0); Mean Platelet Volume 9.9 fL (9.4-12.3); Monocytes Absolute Auto 0.6 X10*3/uL (0.1-1.2); Monocytes Percent Auto 8.3 % (2-11); Neutrophils Absolute Auto 4.9 x10*3/uL (2.0-8.3); Neutrophils Percent Auto 63.8 % (45-73); Platelet Count 307 X10*3/uL (160-400); Red Blood Count 4.23 X10*6/uL (4.20-5.50); Red Cell Distribution Width 15.4 % (11.0-16.0); White Blood Count 7.6 X10*3/uL (4.8-10.8)
[2021-11-20 06:33] LABS: Venous Blood Gas Refer to POC result
[2021-11-20 06:47] LABS: Albumin Level 3.6 g/dL (3.5-5.0); Anion Gap 10 (12-20); Blood Urea Nitrogen 21 mg/dL (9-16); Carbon Dioxide 37 mmol/L (22-29); Chloride 101 mmol/L (96-108); Estimated Glomerular Filt Rate > 60; Glucose Random 123 mg/dL (60-115); Magnesium 1.9 mg/dL (1.6-2.6); Phosphorus 3.7 mg/dL (2.7-4.5); Potassium 3.8 mmol/L (3.3-5.1); Sodium 144 mmol/L (135-145)
[2021-11-20 07:36] VITALS: BP 143/94; PULSE 88; RESP 20; TEMP 36.8; O2SAT 95
[2021-11-20] MEDS: Metoprolol Succinate ER 50 MG TAB.ER.24H PO (07:48)
[2021-11-20 08:06] LABS: Glucose, Whole Blood 106 mg/dL (60-115)
--- NOTE | 2021-11-20 08:53 | MHC.CM.PN ---
CM met with Patient and her at bedside. Patient lives in an apartment with her and uses a walker to assist with mobility. Patient has received a [facility] 2 1/2 hours/day in the past but is now only active with PT (unsure from which agency). A referral has been made to [facility] and home with services is the goal. CM has initiated an will follow for dc planning. Patient has received [facility] vax X2 and her PCP is Dr. Mandy Guy.
--- NOTE | 2021-11-20 11:15 | PM.DS ---
DS: Providers Provider Date of Service: 11/20/21 Date of admission: 11/18/21 12:22 Date of discharge: 11/20/21 Primary care physician: Dolores Dubois MD DS: Diagnosis Discharge Diagnosis (1) Acute and chronic respiratory failure with hypercapnia: Status: Acute (2) Obesity hypoventilation syndrome: Status: Acute (3) Obesity: Status: Acute (4) Congestive heart failure: Status: Acute (5) Diabetes mellitus: Status: Acute (6) Oxygen dependent: Status: Acute (7) Left-sided sensory deficit present: Status: Acute DS: Summary Hospital Course Hospital Course: 61-year-old female presents to [facility] with hypercapnic hypoxic respiratory failure similar to last episodes. She states she got conflicting advice from caregivers that she should using oxygen more than her BiPAP so over the last several days prior to admission she became more confused and lethargic as previous episodes. Patient has BiPAP at home however night utilizing. in emergency room she responded extremely well to BiPAP was admitted to ICU overnight without issue. On the day of discharge she had normal venous blood gas and she will be discharged home and encouraged to use her BiPAP any time she sleeps. Time Spent with Patient Time attestation: Total time spent providing and/or coordinating discharge services: Discharge coordination time: Greater than 30 minutes Quality: Safe Use of Opioids Does Pt have an Active Cancer Diagnosis on the Problem List?: No Quality: Stroke Does the patient have a stroke diagnosis?: No Physical Exam Vital Signs: Vital Signs: Last Vital Signs Temp 98.2 F 11/20/21 07:36 Pulse 88 11/20/21 07:36 Resp 20 11/20/21 07:36 BP 143/94 H 11/20/21 07:36 Pulse Ox 95 11/20/21 07:36 O2 Del Method 11/20/21 07:36 O2 Flow Rate 2 11/20/21 07:36 FiO2 24 11/19/21 07:00 Oxygen Flow Rate 10 11/18/21 11:05 BMI result Body Mass Index 40.1 Const: Other: Awake alert oriented x3 no acute distress Resp: Other: clear to auscultation bilaterally no rales rhonchi or wheezes Cardio: Other: no S4; positive S1-S2; no S3 murmurs rubs gallops Neuro: Other: cranial nerves 2-12 grossly intact as tested. Motor 5/5 all extremities sensation intact. Cognition appropriate via interprete Extrem: Other: no edema bilaterally DS: Data Data Completed and Pending Completed studies during hospitalization [Text1]: Procedures Assistance with Respiratory Ventilation, Less than 24 Consecutive Hours, Continuous Positive Airway Pressure (10/11/21) Labs on day of discharge: Laboratory Results - last 24 hr 11/19/21 11/19/21 11/20/21 11:41 19:25 06:17 WBC 7.6 RBC 4.23 Hgb 12.0 Hct 38.9 MCV 92.0 MCH 28.4 MCHC 30.8 L RDW 15.4 Plt Count 307 MPV 9.9 Immature Gran % (Auto) 0.1 Neut % (Auto) 63.8 Lymph % (Auto) 24.1 [place] % (Auto) 8.3 Eos % (Auto) 3.4 Baso % (Auto) 0.3 Lymph # (Auto) 1.8 [place] # (Auto) 0.6 Eos # (Auto) 0.3 Baso # (Auto) 0.0 Abs Immat Gran (auto) 0.01 Absolute Neuts (auto) 4.9 Absolute Nucleated RBC 0.000 Nucleated RBC % (auto) 0.0 VBG pH VBG pCO2 VBG pO2 VBG HCO3 VBG O2 Saturation VBG Base Excess Sodium Potassium Chloride Carbon Dioxide Anion Gap BUN Creatinine Estim Creat Clear Calc Estimated GFR POC Glucose 94 109 Random Glucose Calcium Phosphorus Magnesium Albumin 11/20/21 11/20/21 11/20/21 06:17 06:23 07:15 WBC RBC Hgb Hct MCV MCH MCHC RDW Plt Count MPV Immature Gran % (Auto) Neut % (Auto) Lymph % (Auto) [place] % (Auto) Eos % (Auto) Baso % (Auto) Lymph # (Auto) [place] # (Auto) Eos # (Auto) Baso # (Auto) Abs Immat Gran (auto) Absolute Neuts (auto) Absolute Nucleated RBC Nucleated RBC % (auto) VBG pH 7.41 VBG pCO2 37 VBG pO2 70 VBG HCO3 24 VBG O2 Saturation 93.0 VBG Base Excess 0.2 Sodium 144 Potassium 3.8 Chloride 101 Carbon Dioxide 37 H Anion Gap 10 L BUN 21 H Creatinine 0.74 Estim Creat Clear Calc 103.0 Estimated GFR > 60 POC Glucose 106 Random Glucose 123 H Calcium 9.0 Phosphorus 3.7 Magnesium 1.9 Albumin 3.6 Preliminary micro results at discharge 11/18/21 11:54 Blood Culture - Preliminary Blood - Venous No growth after 24 hours. 11/18/21 11:54 Blood Culture - Preliminary Blood - Venous No growth after 24 hours. Discharge Plan Discharge Patient Disposition: Home Health Service Discharge Diagnosis: acute on chronic respiratory failure with hypercapnia Referrals: Dolores Renteria MD [Primary Care Provider] - 1 Week Discharge Medications: No Action acetazolamide 250 mg tablet 250 mg PO BID Qty: 60 0RF atorvastatin 80 mg tablet 80 mg PO BEDTIME Qty: 30 0RF hydralazine 10 mg tablet 10 mg PO TID Qty: 90 0RF Protocol: Hold for SBP< HOLD for SBP < : 90 lisinopril 10 mg tablet 10 mg PO DAILY Qty: 30 0RF metformin 500 mg tablet 500 mg PO BID 90 Days Qty: 180 3RF albuterol sulfate [ProAir HFA] 90 mcg/actuation HFA aerosol inhaler 2 puff PO Q6H PRN (Reason: wheezing) Qty: 8.5 1RF aspirin 81 mg tablet,delayed release (DR/EC) 81 mg PO DAILY 90 Days Qty: 90 0RF Combivent Respimat 20-100 mcg/actuation mist 1 puff INHALATION QID Qty: 4 1RF lidocaine 5 % adhesive patch,medicated 1 patch topical DAILY 30 Days Qty: 30 0RF Rx Instructions: leave on most painful area for up to 12 hrs albuterol sulfate 2.5 mg /3 mL (0.083 %) solution for nebulization 1 amp inhalation Q4H PRN (Reason: wheezing) fluticasone propionate [Flovent] 110 mcg/actuation Hfa Aerosol Inhaler 1 puff INHALATION BID budesonide [Pulmicort] 0.5 mg/2 mL suspension for nebulization 0.25 mg inhalation BID 30 Days Qty: 60 6RF acetaminophen [Tylenol 8 Hour] 650 mg tablet extended release 650 mg PO Q8H PRN (Reason: pain) 30 Days Qty: 90 11RF Discharge Orders: Discharge Order (Routine); Ordered 11/20/21 Ordered By: Lukas Hackett Diet: advance to usual diet Activity on Discharge: As tolerated Stand Alone Forms: Patient Portal Discharge page Care Plan Goals: resume all pre-hospital medicine Health Concerns: continue BiPAP at bedti Plan of Treatment: continue to use BiPAP at night or any time you sleep. Do not substitute oxygen for BiPAP Assessment: see discharge summary
--- NOTE | 2021-11-20 11:25 | MHC.CM.PN ---
Patient has been medically cleared for dc to home today, with services. Patient is active with a [facility], who has been notified of today's dc.
[2021-11-20 11:37] LABS: Glucose, Whole Blood 124 mg/dL (60-115)
== END 2021-11-20 13:59 | disposition home health service (06) | DRG 194 ==
LOC: HO.ED 11:04 → HO.EDOVER 12:31 → HO.ICU 14:07 → HO.IMC 11-19 15:03
PROVIDERS: Admitting Provider Internal Medicine Pulmonary Disease; Emergency Provider Emergency Medicine; PCP Internal Medicine; Visit Provider Hospitalist
DX: I11.0 Hypertensive heart disease with heart failure (principal); J96.22 Acute and chronic respiratory failure with hypercapnia; E66.2 Morbid (severe) obesity with alveolar hypoventilation; E11.9 Type 2 diabetes mellitus without complications; I50.9 Heart failure, unspecified; Z68.41 Body mass index [BMI] 40.0-44.9, adult; I69.854 Hemiplegia and hemiparesis following other cerebrovascular disease affecting left non-dominant side; Z20.822 Contact with and (suspected) exposure to COVID-19; Z79.51 Long term (current) use of inhaled steroids; Z79.84 Long term (current) use of oral hypoglycemic drugs; Z79.82 Long term (current) use of aspirin; Z79.899 Other long term (current) drug therapy
CPT/HCPCS: 0241U; 36415; 36600; 70450; 71045; 80048; 80076; 80307; 81001; 82040; 82803; 82947; 83605; 83690; 83735; 83880; 84100; 84484; 85025; 85610; 87040; 93005; 94660; 96365; 96375; 99285; J1940; J1956

== ENCOUNTER 2021-12-27 08:24 | Outpatient (REF) | payer OTHER, SELFPAY ==
[2021-12-27 08:38] LABS: MANUAL DIFF FLAG NO
[2021-12-27 08:54] LABS: Basophils Percent Auto 0.4 % (0-2); Eosinophils Absolute Auto 0.1 X10*3/uL (0.0-0.4); Eosinophils Percent Auto 1.7 % (0-4); Hematocrit 38.9 % (37.0-47.0); Hemoglobin 12.1 g/dl (12.0-16.0); Imm Gran Abs Auto 0.04 X10*3/uL (0.00-0.03); Imm Gran Pct Auto 0.6 % (0.0-0.4); Lymphocytes Percent Auto 27.9 % (20-40); Mean Corpuscular HGB Conc 31.1 g/dl (31.0-35.0); Mean Corpuscular Hemoglobin 27.6 pg (27.0-33.0); Mean Corpuscular Volume 88.6 fL (80.0-98.0); Mean Platelet Volume 9.5 fL (9.4-12.3); Monocytes Absolute Auto 0.4 X10*3/uL (0.1-1.2); Monocytes Percent Auto 5.1 % (2-11); Neutrophils Absolute Auto 4.6 x10*3/uL (2.0-8.3); Neutrophils Percent Auto 64.3 % (45-73); Platelet Count 340 X10*3/uL (160-400); Red Blood Count 4.39 X10*6/uL (4.20-5.50); Red Cell Distribution Width 14.8 % (11.0-16.0); White Blood Count 7.2 X10*3/uL (4.8-10.8)
[2021-12-27 09:25] LABS: Alanine Aminotransferase 22 U/L (0-31); Alkaline Phosphatase 93 U/L (39-117); Anion Gap 13 (12-20); Aspartate Amino Transferase 13 U/L (5-31); Bilirubin Total 0.3 mg/dL (0.0-1.0); Blood Urea Nitrogen 21 mg/dL (9-16); Calcium 9.3 mg/dL (8.4-10.2); Carbon Dioxide 28 mmol/L (22-29); Chloride 104 mmol/L (96-108); Cholesterol 238 mg/dL; Estimated Glomerular Filt Rate > 60; Glucose Fasting 129 mg/dL (60-99); HDL Cholesterol 71 mg/dL; LDL Cholesterol Calculated 136 mg/dl; Potassium 4.4 mmol/L (3.3-5.1); Sodium 141 mmol/L (135-145); Triglycerides 155 mg/dL
[2021-12-27 09:44] LABS: Creatinine Urine 45.79 mg/dL; Microalbum/Creatinine Ratio Ur 15.2 ug/mg cr
[2022-01-01 11:32] LABS: NT-proBNP 121 pg/mL
[2022-01-02 13:51] LABS: Vitamin D 25-OH, D2 <4 ng/mL; Vitamin D 25-OH, D3 11 ng/mL; Vitamin D 25-OH, Total 11 ng/mL (30-100)
== END 2021-12-27 08:25 | disposition home or self-care (01) ==
LOC: HO.LAB 08:24
PROVIDERS: PCP Internal Medicine; Visit Provider Internal Medicine
DX: E11.9 Type 2 diabetes mellitus without complications (principal); E78.5 Hyperlipidemia, unspecified; E55.9 Vitamin D deficiency, unspecified; R06.09 Other forms of dyspnea; J45.909 Unspecified asthma, uncomplicated; I50.9 Heart failure, unspecified; G47.33 Obstructive sleep apnea (adult) (pediatric)
CPT/HCPCS: 36415; 80053; 80061; 82043; 82306; 83880; 85025; 99212

== ENCOUNTER 2022-01-29 09:39 | Outpatient (REF) | payer OTHER, SELFPAY ==
--- NOTE | 2022-01-29 15:26 | PFT_ITS ---
Forced vital capacity 44%, FEV1 36%, FEV1/FVC ratio is 64. [id number] 20% and MVV 32%. Postbronchodilator therapy, minimal but significant improvement is noted in FEV1 and [id number]. Total lung capacity 64%. Residual volume 84%. Diffusion capacity is 46% CONCLUSION: Severe obstructive airway disorder. There may be a mild restrictive pulmonary component as well. There is minimal improvement after bronchodilator therapy. Clinical correlation is recommended. Compared to the results of PFT on 07/21/2018, there is further decline in the lung volumes and in flow volumes as well as in diffusion capacity. MD MELLISA Swanson/MODL / [id number]
== END 2022-01-29 09:40 | disposition home or self-care (01) ==
LOC: HO.RESP 09:39
PROVIDERS: PCP Internal Medicine; Visit Provider Internal Medicine Pulmonary Disease
DX: R06.09 Other forms of dyspnea (principal)
CPT/HCPCS: 94060; 94727; 94729

== ENCOUNTER 2022-04-06 13:29 | Inpatient (IN) | payer OTHER, SELFPAY ==
[2022-04-06] VITALS (24 sets, daily range): BP systolic 108–198; BP diastolic 57–104; PULSE 90–122; RESP 11–28; TEMP 32–36.8; O2SAT 82–118; BMI 43.4; BMI 57.9
--- NOTE | ~2022-04-06 | XR_ITS ---
EXAMINATION: XR CHEST CLINICAL INFORMATION: Endotracheal tube. COMPARISON: 04/06/2022 TECHNIQUE: Frontal view of the chest was obtained. FINDINGS: The endotracheal tube terminates approximately 3 cm above the fernando. The enteric tube extends into the stomach. Right internal jugular central venous catheter terminates near the cavoatrial junction. Lung volumes are low. No dense consolidation. No edema or effusion. No pneumothorax. The cardiomediastinal silhouette is unchanged. XR/XR chest 1V IMPRESSION: 1. Endotracheal tube terminating 3 cm above the fernando. 2. Low lung volumes. No acute pulmonary finding.
--- NOTE | ~2022-04-06 | CT_ITS ---
EXAMINATION: CT CHEST WITHOUT CONTRAST CLINICAL INFORMATION: Difficulty breathing. Status asthmaticus COMPARISON: Chest radiograph 02/05/2022 TECHNIQUE: Multidetector volumetric CT imaging of the chest was done. Axial MIP volume rendering provided. Sagittal and coronal reformatted images were obtained. This CT examination was performed using dose optimization techniques as appropriate, variously including the following: *Automated exposure control *Adjustment of mA and/or kV according to patient size (this includes techniques or standardized protocols for targeted exams where dose is matched to indication/reason for exam; i.e. extremities or head) *Use of iterative reconstruction technique DLP: 370 mGy-cm FINDINGS: TELECOMMUNICATIONS SWITCH TECHNICIAN: Unremarkable LUNGS: Linear atelectatic change and scarring at the lung bases with the mild consolidative process, medial left lower lobe and medial posterior left upper lung adjacent to the left hilum and aortic arch. Bilateral bronchiectatic change observed. Underlying COPD. MEDIASTINUM: Study is performed without contrast. Heart mildly enlarged. Thoracic inlet unremarkable. No significant adenopathy. Right-sided central line observed with its tip at the cavoatrial junction. No pericardial effusion. CORONARY ARTERY CALCIFICATION: None visualized on this study. PLEURA: Minimal bibasilar pleural thickening. AXILLA: No lymphadenopathy. UPPER ABDOMEN: Hepatic steatosis. Surgical clips in the gallbladder fossa. Scarring left kidney. OSSEOUS STRUCTURES: There is multilevel spondylitic change and kyphosis in the thoracic spine. No fracture. CT/CT chest wo IV con IMPRESSION: Bibasilar atelectatic change. Medial left lower lung and posterior left upper lung consolidative process could reflect pneumonia.
--- NOTE | ~2022-04-06 | XR_ITS ---
EXAMINATION: XR CHEST CLINICAL INFORMATION: Shortness of breath COMPARISON: Previous chest x-ray most recent November 2021 TECHNIQUE: Frontal view of the chest was obtained. FINDINGS: The cardiac silhouette is enlarged but stable. Hilar and mediastinal contours are unremarkable. There may be peribronchial cuffing. The lungs are otherwise clear. There is no pleural effusion or pneumothorax. There are degenerative changes of the spine and shoulders. XR/XR chest 1V IMPRESSION: Stable enlargement of the cardiac silhouette. Question peribronchial cuffing. This could be related to pulmonary venous redistribution or airways disease.
--- NOTE | 2022-04-06 13:34 | ECG_ITS ---
Test Reason : SOB Blood Pressure : / mmHG Vent. Rate : 118 BPM Atrial Rate : 118 BPM P-R Int : 120 ms QRS Dur : 080 ms QT Int : 322 ms P-R-T Axes : 051 012 072 degrees QTc Int : 451 ms Sinus tachycardia Nonspecific ST abnormality Inferior leads Abnormal ECG When compared with ECG of 18-NOV-2021 10:30, Premature atrial complexes are no longer Present Referred By: Billie Post Electronically Signed By:MCKAYLA BAIRD MD
[2022-04-06 13:53] LABS: MANUAL DIFF FLAG NO
[2022-04-06 13:55] LABS: Basophils Absolute Auto 0.1 X10*3/uL (0.0-0.2); Basophils Percent Auto 0.3 % (0-2); Eosinophils Absolute Auto 0.6 X10*3/uL (0.0-0.4); Eosinophils Percent Auto 3.8 % (0-4); Hematocrit 43.5 % (37.0-47.0); Hemoglobin 12.8 g/dl (12.0-16.0); Imm Gran Abs Auto 0.09 X10*3/uL (0.00-0.03); Imm Gran Pct Auto 0.6 % (0.0-0.4); Lymphocytes Absolute Auto 2.9 X10*3/uL (1.2-4.9); Lymphocytes Percent Auto 19.4 % (20-40); Mean Corpuscular HGB Conc 29.4 g/dl (31.0-35.0); Mean Corpuscular Hemoglobin 26.9 pg (27.0-33.0); Mean Corpuscular Volume 91.4 fL (80.0-98.0); Mean Platelet Volume 9.8 fL (9.4-12.3); Monocytes Absolute Auto 0.9 X10*3/uL (0.1-1.2); Neutrophils Absolute Auto 10.4 x10*3/uL (2.0-8.3); Neutrophils Percent Auto 69.9 % (45-73); Platelet Count 376 X10*3/uL (160-400); Red Blood Count 4.76 X10*6/uL (4.20-5.50); Red Cell Distribution Width 14.6 % (11.0-16.0); White Blood Count 14.9 X10*3/uL (4.8-10.8)
[2022-04-06 13:59] LABS: Prothrombin Time 10.9 SEC (10.0-13.1)
--- NOTE | 2022-04-06 14:03 | ED.SOB ---
HPI - SOB/Dyspnea General Chief Complaint: Dyspnea Stated Complaint: RESP DISTRESS Time Seen by Provider: 04/06/22 13:33 Source: patient and EMS Mode of arrival: EMS Limitations: other (respiratory distress) History of Present Illness HPI Narrative: 61 yo female with hx of TAURUS on home cpap, CHF, COPD, DM, obesity, prior posterior stroke, prior cocaine abuse reports no recent illness but asthma exacerbation this AM that didn't resolve to INH. EMS was called for resp distress placed patient on CPAP and noted sats in 50s. Patient was diaphoretic denies fevers denies chest pain. Finger probe with nail central african was 60s - moved to ear and sats were 94% unsure what true level was given nailpolish. MD elicited complaint: shortness of breath Pertinent past history: COPD, asthma, congestive heart failure and diabetes Onset (ago): day(s) (this AM) Context: other (denies any exposures or causes to me) Timing: constant Severity: moderate Exacerbating factors: exertion, movement and coughing Relieving factors: oxygen, rest and bronchodilators Known history of: COPD, asthma, congestive heart failure and diabetes Associated symptoms: cough and wheezing Treatment prior to arrival: oxygen and bronchodilator Related Data Home Medications Medication Instructions Recorded Confirmed hydralazine 10 mg tablet 10 mg PO BID 12/27/21 04/06/22 albuterol sulfate 2.5 mg/3 mL 1 amp inhalation Q4-6H PRN wheezing 04/06/22 04/06/22 (0.083 %) solution for nebulization amlodipine 10 mg tablet 1 tab PO DAILY 04/06/22 04/06/22 fluticasone 500 mcg-salmeterol 50 1 puff inhalation BID 04/06/22 04/06/22 mcg/dose blistr powdr for inhalation (Advair Diskus) furosemide 20 mg tablet (Lasix) 20 mg PO DAILY 04/06/22 04/06/22 hydrochlorothiazide 25 mg tablet 1 tab PO DAILY 04/06/22 04/06/22 Previous Rx's Medication Instructions Recorded acetaminophen 650 mg 650 mg PO Q8H PRN pain 30 days #90 08/07/21 tablet,extended release (Tylenol 8 tabs Hour) lidocaine 5 % topical patch 1 patch topical DAILY 30 days #30 11/20/21 ea lisinopril 20 mg tablet 20 mg PO DAILY for blood pressure 11/20/21 90 days #90 tabs metformin 500 mg tablet 500 mg PO BID 90 days #180 tabs 11/20/21 sennosides 8.6 mg tablet (Senna 8.6 mg PO BID PRN constipation 90 11/20/21 Lax) days #180 tabs thiamine HCl (vitamin B1) 100 mg 100 mg PO DAILY 90 days #90 tabs 11/20/21 tablet cholecalciferol (vitamin D3) 50 50 mcg PO DAILY 90 days #90 caps 01/02/22 mcg (2,000 unit) capsule ipratropium 20 mcg-albuterol 100 1 puff inhalation QID #4 grams 01/02/22 mcg/actuation mist for inhalation (Combivent Respimat) atorvastatin 80 mg tablet 80 mg PO BEDTIME #30 tabs 01/12/22 adult diapers pull-ups #200 ea 01/23/22 underpads (Bed Underpads) #40 ea 01/23/22 wipes #200 ea 01/23/22 aspirin 81 mg tablet,delayed 81 mg PO DAILY 90 days #90 tabs 01/30/22 release nebulizers (AeroEclipse II #1 ea 02/01/22 Nebulizer) fluticasone propionate 50 1 spray intranasal DAILY 30 days 02/21/22 mcg/actuation nasal #16 grams spray,suspension (Flonase Allergy Relief) verapamil 240 mg 24 hr 240 mg PO DAILY 90 days #90 caps 03/04/22 capsule,extended release albuterol sulfate 90 mcg/actuation 2 puff PO Q6H PRN wheezing #8.5 03/05/22 aerosol inhaler (ProAir HFA) grams Allergies Allergy/AdvReac Type Severity Reaction Status Date / Time No Known Allergies Allergy Verified 12/27/21 14:13 Review of Systems Review of Systems: Constitutional : No Fever, No Chills ENT/Mouth : No Hoarseness, No sore throat, No Rhinorrhea Eyes: No Redness, No Discharge, No Vision Changes Cardiovascular : No Chest Pain, positive SOB, positive Dyspnea on Exertion, No Edema Respiratory : positive Cough, No Sputum, positive Wheezing, Gastrointestinal : No Nausea, No Vomiting, No Diarrhea, No abdominal Pain Genitourinary : No Dysuria, No Hematuria Musculoskeletal : No joint pain, No Myalgias Skin : No rash Neuro : No Weakness, No Numbness, No Headache Psych : No anxiety, depression Heme/Lymph: No Bruising, No Bleeding Endocrine : No Polyuria, No Polydipsia All other systems reviewed and are negative [facility] Past Medical History Attestation statement: The following information was validated with the patient. Medical History Cerebrovascular accident involving posterior circulation Cocaine use disorder, mild, in sustained remission COPD (chronic obstructive pulmonary disease) Diabetes mellitus Essential hypertension Moderate asthma Obesity TAURUS (obstructive sleep apnea) Oxygen dependent Surgical History History of cholecystectomy History of cholecystectomy History of open reduction and internal fixation (ORIF) procedure History of open reduction and internal fixation (ORIF) procedure History of tubal ligation History of tubal ligation Family History Family History Father Medical history unknown Mother Diabetes Hypertension Father Medical history unknown Mother Hypertension Diabetes Other Substance use disorder Social History Social History Household Members: Spouse Housing: Apartment Do you presently have visiting nurse or other home services: No Alcohol intake: former Patient Tobacco Use Status: Former Tobacco user Tobacco use type: Cigarette Cigarette Packs Per Day: 0.75 Cigarettes Per Day: 15.0 Years Smoked: 31 years e-Cigarette/Vaping Use: Never Used Second Hand Smoke Exposure: Yes Substance Use Type: Crack/Cocaine Advance Directives: Yes Advance Directives on File: Yes Advance Directives Date on File: 08/28/21 service: No Current occupational status: disabled Cognitive needs: Yes (walker/wheelchair/cane) Hearing needs: No Vision needs: Yes Physical Exam Vital Signs: Vital Signs: Last Vital Signs Pulse 116 H 04/06/22 15:56 Resp 28 H 04/06/22 15:57 BMI result Body Mass Index 43.4 Appearance: Alert. Oriented X3. Moderate acute distress. Eyes: Pupils equal, round and reactive to light. ENT: Pharynx normal. Neck: Normal inspection. Neck supple. CVS: tachycardic heart rate and rhythm. Pulses normal. Respiratory: moderate respiratory distress - single words, retractions, tachypnea. Breath sounds very diminished throughout, wheezes faintly heard Abdomen: Soft and nontender. Skin: Skin warm and diaphoretic Normal skin color. Normal skin turgor. Extremities: No lower extremity edema. No calf ttp Neuro: Oriented X 3. No motor deficit. No sensory deficit. Course Course Course Narrative: lactic acidosis due to nebs, hypoxia and not infection or severe sepsis fluids held at this time patient is retaining alert and oriented x 3, mentating on bipap will continue to keep on bipap and attempt to wean off - repeat ABG at 4pm repeat neb ordered doubt patient will come off bipap - repeat ABG ordered ABG improved but patient still requires Bipap - ICU to admit Dr. Cadena MDM - SOB/Dyspnea MDM Narrative Medical decision making narrative: 61 yo female with hx of TAURUS on home cpap, CHF, COPD, DM, obesity, prior posterior stroke, prior cocaine abuse here with respiratory distress requiring NIPPV at this time will obtain labs, cultures, hour long 10mg neb, IV steroids, IV magnesium, ABG, drug screen. Likely admit - dispo per results and whether or not patient can come off of bipap ICU vs floor. Lab Data Result diagrams: 04/06/22 13:44 04/06/22 13:44 Labs: Lab Results 04/06/22 04/06/22 04/06/22 Range/Units 13:44 13:44 13:44 WBC 14.9 H (4.8-10.8) X10*3/uL RBC 4.76 (4.20-5.50) X10*6/uL Hgb 12.8 (12.0-16.0) g/dl Hct 43.5 (37.0-47.0) % MCV 91.4 (80.0-98.0) fL MCH 26.9 L (27.0-33.0) pg MCHC 29.4 L (31.0-35.0) g/dl RDW 14.6 (11.0-16.0) % Plt Count 376 (160-400) X10*3/uL MPV 9.8 (9.4-12.3) fL Immature Gran % (Auto) 0.6 H (0.0-0.4) % Neut % (Auto) 69.9 (45-73) % Lymph % (Auto) 19.4 L (20-40) % [place] % (Auto) 6.0 (2-11) % Eos % (Auto) 3.8 (0-4) % Baso % (Auto) 0.3 (0-2) % Lymph # (Auto) 2.9 (1.2-4.9) X10*3/uL [place] # (Auto) 0.9 (0.1-1.2) X10*3/uL Eos # (Auto) 0.6 H (0.0-0.4) X10*3/uL Baso # (Auto) 0.1 (0.0-0.2) X10*3/uL Abs Immat Gran (auto) 0.09 H (0.00-0.03) X10*3/uL Absolute Neuts (auto) 10.4 H (2.0-8.3) x10*3/uL Absolute Nucleated RBC 0.000 (0.0-0.012) X10*3/uL Nucleated RBC % (auto) 0.0 (0.0-0.2) /100WBC PT 10.9 (10.0-13.1) SEC INR 1.0 (0.9-1.1) O2 Saturation % ABG pH at Pt Temp (7.35-7.45) ABG pCO2 at Pt Temp (32-45) mmHg ABG pO2 at Pt Temp (83-108) mmHg ABG HCO3 (22-26) mmol/L ABG Base Excess (Actual) mmol/L VBG pH (7.32-7.43) VBG pCO2 mmHg VBG pO2 mmHg VBG HCO3 (22-26) mmol/L VBG O2 Saturation % VBG Base Excess mmol/L Sodium 140 (135-145) mmol/L Potassium 5.0 (3.3-5.1) mmol/L Chloride 90 L (96-108) mmol/L Carbon Dioxide 33 H (22-29) mmol/L Anion Gap 22 H (12-20) BUN 19 H (9-16) mg/dL Creatinine 0.77 (0.5-1.4) mg/dL Estim Creat Clear Calc TNP Estimated GFR > 60 Random Glucose 270 H (60-115) mg/dL Lactic Acid (0.5-2.0) mmol/L Calcium 8.9 (8.4-10.2) mg/dL Magnesium 2.0 (1.6-2.6) mg/dL Total Bilirubin 0.3 (0.0-1.0) mg/dL Direct Bilirubin < 0.2 (0.0-0.5) mg/dL AST 26 D (5-31) U/L ALT 22 (0-31) U/L Alkaline Phosphatase 110 (39-117) U/L Troponin I High Sens (<3.5-17.0) ng/L B-Natriuretic Peptide (<100) pg/mL Total Protein 8.2 H (6.5-8.0) g/dL Albumin 4.4 (3.5-5.0) g/dL Influenza Type A (PCR) (Negative) Influenza Type B (PCR) (Negative) RSV RNA Qual (PCR) (Negative) SARS-CoV-2 RNA (RT-PCR) (Negative) 04/06/22 04/06/22 04/06/22 Range/Units 13:44 13:44 14:15 WBC (4.8-10.8) X10*3/uL RBC (4.20-5.50) X10*6/uL Hgb (12.0-16.0) g/dl Hct (37.0-47.0) % MCV (80.0-98.0) fL MCH (27.0-33.0) pg MCHC (31.0-35.0) g/dl RDW (11.0-16.0) % Plt Count (160-400) X10*3/uL MPV (9.4-12.3) fL Immature Gran % (Auto) (0.0-0.4) % Neut % (Auto) (45-73) % Lymph % (Auto) (20-40) % [place] % (Auto) (2-11) % Eos % (Auto) (0-4) % Baso % (Auto) (0-2) % Lymph # (Auto) (1.2-4.9) X10*3/uL [place] # (Auto) (0.1-1.2) X10*3/uL Eos # (Auto) (0.0-0.4) X10*3/uL Baso # (Auto) (0.0-0.2) X10*3/uL Abs Immat Gran (auto) (0.00-0.03) X10*3/uL Absolute Neuts (auto) (2.0-8.3) x10*3/uL Absolute Nucleated RBC (0.0-0.012) X10*3/uL Nucleated RBC % (auto) (0.0-0.2) /100WBC PT (10.0-13.1) SEC INR (0.9-1.1) O2 Saturation % ABG pH at Pt Temp (7.35-7.45) ABG pCO2 at Pt Temp (32-45) mmHg ABG pO2 at Pt Temp (83-108) mmHg ABG HCO3 (22-26) mmol/L ABG Base Excess (Actual) mmol/L VBG pH 7.29 L (7.32-7.43) VBG pCO2 85 mmHg VBG pO2 115 mmHg VBG HCO3 41 H (22-26) mmol/L VBG O2 Saturation 99.0 % VBG Base Excess 11.3 mmol/L Sodium (135-145) mmol/L Potassium (3.3-5.1) mmol/L Chloride (96-108) mmol/L Carbon Dioxide (22-29) mmol/L Anion Gap (12-20) BUN (9-16) mg/dL Creatinine (0.5-1.4) mg/dL Estim Creat Clear Calc Estimated GFR Random Glucose (60-115) mg/dL Lactic Acid 3.0 H* (0.5-2.0) mmol/L Calcium (8.4-10.2) mg/dL Magnesium (1.6-2.6) mg/dL Total Bilirubin (0.0-1.0) mg/dL Direct Bilirubin (0.0-0.5) mg/dL AST (5-31) U/L ALT (0-31) U/L Alkaline Phosphatase (39-117) U/L Troponin I High Sens 7.1 D (<3.5-17.0) ng/L B-Natriuretic Peptide 65 (<100) pg/mL Total Protein (6.5-8.0) g/dL Albumin (3.5-5.0) g/dL Influenza Type A (PCR) (Negative) Influenza Type B (PCR) (Negative) RSV RNA Qual (PCR) (Negative) SARS-CoV-2 RNA (RT-PCR) (Negative) 04/06/22 04/06/22 04/06/22 Range/Units 14:16 14:16 16:12 WBC (4.8-10.8) X10*3/uL RBC (4.20-5.50) X10*6/uL Hgb (12.0-16.0) g/dl Hct (37.0-47.0) % MCV (80.0-98.0) fL MCH (27.0-33.0) pg MCHC (31.0-35.0) g/dl RDW (11.0-16.0) % Plt Count (160-400) X10*3/uL MPV (9.4-12.3) fL Immature Gran % (Auto) (0.0-0.4) % Neut % (Auto) (45-73) % Lymph % (Auto) (20-40) % [place] % (Auto) (2-11) % Eos % (Auto) (0-4) % Baso % (Auto) (0-2) % Lymph # (Auto) (1.2-4.9) X10*3/uL [place] # (Auto) (0.1-1.2) X10*3/uL Eos # (Auto) (0.0-0.4) X10*3/uL Baso # (Auto) (0.0-0.2) X10*3/uL Abs Immat Gran (auto) (0.00-0.03) X10*3/uL Absolute Neuts (auto) (2.0-8.3) x10*3/uL Absolute Nucleated RBC (0.0-0.012) X10*3/uL Nucleated RBC % (auto) (0.0-0.2) /100WBC PT (10.0-13.1) SEC INR (0.9-1.1) O2 Saturation 86.0 87.0 % ABG pH at Pt Temp 7.25 L 7.29 L (7.35-7.45) ABG pCO2 at Pt Temp 106 H* 91 H* (32-45) mmHg ABG pO2 at Pt Temp 69 L 63 L (83-108) mmHg ABG HCO3 47 H 44 H (22-26) mmol/L ABG Base Excess (Actual) 15.1 13.2 mmol/L VBG pH (7.32-7.43) VBG pCO2 mmHg VBG pO2 mmHg VBG HCO3 (22-26) mmol/L VBG O2 Saturation % VBG Base Excess mmol/L Sodium (135-145) mmol/L Potassium (3.3-5.1) mmol/L Chloride (96-108) mmol/L Carbon Dioxide (22-29) mmol/L Anion Gap (12-20) BUN (9-16) mg/dL Creatinine (0.5-1.4) mg/dL Estim Creat Clear Calc Estimated GFR Random Glucose (60-115) mg/dL Lactic Acid (0.5-2.0) mmol/L Calcium (8.4-10.2) mg/dL Magnesium (1.6-2.6) mg/dL Total Bilirubin (0.0-1.0) mg/dL Direct Bilirubin (0.0-0.5) mg/dL AST (5-31) U/L ALT (0-31) U/L Alkaline Phosphatase (39-117) U/L Troponin I High Sens (<3.5-17.0) ng/L B-Natriuretic Peptide (<100) pg/mL Total Protein (6.5-8.0) g/dL Albumin (3.5-5.0) g/dL Influenza Type A (PCR) NEGATIVE (Negative) Influenza Type B (PCR) NEGATIVE (Negative) RSV RNA Qual (PCR) NEGATIVE (Negative) SARS-CoV-2 RNA (RT-PCR) NEGATIVE (Negative) ECG Data Attestation: I personally reviewed and interpreted this ECG as follows: ECG interpretation date: 04/06/22 ECG interpretation time: 14:12 Interpretation: Rate: 118 Rhythm: sinus tachycardia [place]: normal Normal P waves. Normal NOAH. Normal QRS complex. ST T wave : nonspecific I and aVL, no ALLISON qTC: normal prior studies: no acute ischemia The study has been interpreted contemporaneously by me. . Critical Care Time Critical Care Time Critical Care Time: Yes Total Critical Care Time: 60 Attestation: NIPPV, repeat nebs, admission, review of records Discharge Plan Discharge Clinical Impression: Respiratory failure, Acidosis, lactic, Leukocytosis, Hypoxia Patient Disposition: Admitted As Inpatient
[2022-04-06 14:14] LABS: Alanine Aminotransferase 22 U/L (0-31); Albumin Level 4.4 g/dL (3.5-5.0); Alkaline Phosphatase 110 U/L (39-117); Anion Gap 22 (12-20); Aspartate Amino Transferase 26 U/L (5-31); Bilirubin Direct < 0.2 mg/dL (0.0-0.5); Bilirubin Total 0.3 mg/dL (0.0-1.0); Blood Urea Nitrogen 19 mg/dL (9-16); Calcium 8.9 mg/dL (8.4-10.2); Carbon Dioxide 33 mmol/L (22-29); Chloride 90 mmol/L (96-108); Estimated Glomerular Filt Rate > 60; Glucose Random 270 mg/dL (60-115); Sodium 140 mmol/L (135-145); Total Protein 8.2 g/dL (6.5-8.0)
[2022-04-06 14:19] LABS: B Type Natriuretic Peptide 65 pg/mL (<100); Troponin-I High Sensitivity 7.1 ng/L (<3.5-17.0)
[2022-04-06 14:19] LABS: ABG Refer to POC result
[2022-04-06 14:21] LABS: VBG Base Excess 11.3 mmol/L; VBG HCO3 41 mmol/L (22-26); VBG pCO2 85 mmHg; VBG pH 7.29 (7.32-7.43); VBG pO2 115 mmHg
[2022-04-06 14:21] LABS: Venous Blood Gas Refer to POC result
[2022-04-06] MEDS: Magnesium Sulfate/H2O 2 GM/50 ML PIGGYBACK IV (14:23)
[2022-04-06] MEDS: methylPREDNISolone Sod Succ 125 MG/2 ML VIAL 60 MG IVPUSH ×2 (14:23→22:42)
[2022-04-06 14:24] LABS: ABG Base Excess 15.1 mmol/L; ABG HCO3 47 mmol/L (22-26); ABG pCO2 106 mmHg (32-45); ABG pH 7.25 (7.35-7.45); ABG pO2 69 mmHg (83-108)
[2022-04-06] MEDS: Furosemide 40 MG/4 ML VIAL IVPUSH (14:51)
[2022-04-06 15:00] LABS: Influenza A PCR NEGATIVE (Negative); Influenza B PCR NEGATIVE (Negative); Resp Syncy Virus RNA Qual PCR NEGATIVE (Negative); SARS COV2 PCR INHOUSE NEGATIVE (Negative)
[2022-04-06] MEDS: cefTRIAXone sodium 1 GM in 0.9 % Sodium Chloride 50 ML IV (15:20)
[2022-04-06 15:51] LABS: Reflex Lactate? Lactic Acid Added
[2022-04-06] MEDS: Albuterol Sulfate 2.5 MG, Albuterol Sulfate (0.083%) 2.5 MG 5 MG INHALE (15:55)
--- NOTE | 2022-04-06 16:02 | PHA.MEDREC ---
Pharmacy Consult ? Medication Reconciliation Pharmacy has completed the medication reconciliation. 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 Patient was unsure of medications she takes. She has not filled hydralazine and amlodipine since november.
[2022-04-06 16:18] LABS: ABG Refer to POC result
[2022-04-06 16:19] LABS: ABG Base Excess 13.2 mmol/L; ABG HCO3 44 mmol/L (22-26); ABG pCO2 91 mmHg (32-45); ABG pH 7.29 (7.35-7.45); ABG pO2 63 mmHg (83-108)
[2022-04-06] MEDS: Doxycycline Hyclate 100 MG in 0.9 % Sodium Chloride 250 ML 166.67 MG IV (16:38)
[2022-04-06 17:34] LABS: ~Lactic Acid-LAB USE ONLY 2.3 mmol/L (0.5-2.0)
[2022-04-06 17:54] LABS: Cancel Lactic Acid Canceled
[2022-04-06] MEDS: 0.9 % Sodium Chloride 500 ML 250 ML IVCONT (19:00)
[2022-04-06 19:15] LABS: Amphetamine Screen Urine Not Detected (Not Detect); Barbiturates, Urine Not Detected (Not Detect); Benzodiazepines Screen Urine Not Detected (Not Detect); Cannabinoid Screen Urine Not Detected (Not Detect); Cocaine Screen Urine Not Detected (Not Detect); Fentanyl, urine Not Detected (Not Detect); Opiate Screen Urine Not Detected (Not Detect); Phencyclidine Screen Urine Not Detected (Not Detect)
[2022-04-06] MEDS: HYDROmorphone HCl 0.5 MG/0.5 ML SYRINGE IVPUSH ×2 (19:35→21:13)
[2022-04-06] MEDS: Metoprolol Tartrate 5 MG/5 ML VIAL IVPUSH (19:45)
[2022-04-06] MEDS: fentaNYL citrate/PF 100 MCG/2 ML VIAL 50 MCG IVPUSH (21:15)
--- NOTE | 2022-04-06 21:28 | PM.CCHP ---
History of Present Illness Date of Service: 04/06/22 Attending physician on admission: Kiet Cadena Chief Complaint: Hypoxic respiratory failure with hypercapnia HPI: ?61-year-old female who speaks Faroese only, who has underlying history of obstructive sleep apnea on CPAP, CHF, COPD not O2 dependent, diabetes, obesity, prior stroke with residual left lower extremity hemiparesis and slight left eye visual deficits, ex-smoker with a 100-120 pack-year history who quit 6 months ago, prior cocaine abuse, recent diagnosis of asthma among others presented to emergency room via ambulance with complaints of having difficulty breathing.? Reportedly EMS noted the patient was on CPAP and noted her sats in the 50s, patient was diaphoretic, however upon checking her O2 sat on her earlobe it was 94%, it was believed that the initial O2 sat was wrong due to the nail Peruvian present.? The patient did get bronchodilators in the ER. ? Her workup reveal white count 14.9, H&H of 12.8 in 43.5 respectively, platelets 376 with a left shift. ?Sodium 140, potassium 5.0, chloride 90, carbon dioxide 33, anion gap 22, BUN 19, creatinine 0.77, random glucose 270, lactic acid 3.0 which went down to 2.3.? COVID negative.? U tox negative. ?Initial chest x-ray showed stable enlargement of the cardiac silhouette.? Question peribronchial cuffing.? This could be related to pulmonary venous redistribution or airway disease.? Her initial ABG showed pH of 7.25, pCO2 of 1 6, PO2 of 69, HC03 of 40.? Patient was placed on BiPAP and we were asked to admit the patient to the ICU. ? There my evaluation, the patient did admit to me that she had some minor cough without sputum production, has had some chills but no actual fever, has posterior of breath for the past 24 hours, she does have a history of asthma has been using her albuterol nebulizers.? She has no trouble recently, there is no history of PE or DVT.? She has not be intubated in past. ? ROS:? Unable to obtain patient respiratory distress on BiPAP ? Past Medical History:? As above ? Past Surgical History: Cholecystectomy Bilateral ankle ORIF Tubal ligation ? Family history: ?Mother was a diabetic and had hypertension. ? Social History: ?Lives at home with her , uses a walker.? Used to smoke 3 packs per day for over 40 years, quit about a month ago.? Does have a history of cocaine abuse but quit several years ago, denies alcohol intake. ? CODE STATUS: FULL CODE ? Allergies: NKDA ? Home Medications: See Med Rec ? PHYSICAL EXAM: VS: ?Blood pressure 193/97, 118, 17, 94% on BiPAP at 22 over 5 with FiO2 of 60% General:? Alert oriented , following commands, appears to be in respiratory distress, using accessory muscles. ?Speaking full sentences.? Skin: ?All surgical scar in the bilateral ankles, otherwise intact.? Is slightly diaphoretic HEENT:? Head is normocephalic, atraumatic, pupils equal round reactive to light accommodation bilaterally.? Extraocular movements appear intact.? Buccal mucosa is moist, Neck is supple without lymphadenopathy. Cardiac:? Clear S1-S2, no murmurs rubs or gallops. Pulmonary:? Diminished lung sounds bilaterally with minimal expiratory wheezing particularly in the left anterior lobe.? No crackles or rales, no rhonchi. Abdomen:? Protuberant, positive bowel sounds in all 4 quadrants.? Soft, nontender, no rebound or guarding.? Musculoskeletal:? Moving all 4 extremities upon request a major joints, there is no crepitus or tenderness.? The strength is 5/5 bilaterally and throughout all 4 extremities.? There is no leg edema , no calf tenderness , no leg asymmetry.? Neurologic:? As above, cranial nerves 2-12 are grossly intact.? No focal deficits noted. Motor strength as above.? Vascular:? 2+ pulses upper and lower extremities distally. ? SIGNIFICANT LABORATORY DATA:? As above ? REVIEW OF IMAGES: ?As above ? EKG REVIEW: ?To my view this shows sinus tachycardia ventricular rate 118 beats per minute.? No ST elevations, there is questionable ST abnormalities in the inferior leads although this appears to be partial change in the ER early process of the lead. ?QTC 322. ? ASSESSMENT : 1. Acute hypoxic/hypercapnic respiratory failure 2. COPD/asthma exacerbation (mild) 3. Reactive leukocytosis 4. Acute kidney injury with BUN to creatinine ratio greater than 20 5. Clinical dehydration likely insensible losses in the setting of respiratory distress 6. Reactive lactic acidosis without evidence of infection 7. Uncontrolled History of diabetes mellitus type 2 8. Uncontrolled hypertension but likely due to respiratory distress; however I do not see any evidence of flash pulmonary edema. ? PLAN OF CARE: Admit to ICU, monitor vital signs, I's and O's, rescue BiPAP and monitor her closely, I am concerned about her work of breathing for which opiate will be given, will repeat blood gas.? Insulin sliding scale, repeat labs later on and discontinue any type of nephrotoxins. I do believe she will benefit from Solu-Medrol which will be started along DuoNebs scheduled and albuterol p.r.n..? Will order sputum culture and Gram stain.? Empirically I will start her on Zithromax IV.? Given that she is also quite hypertensive and tachycardic I will give her a single dose of Lopressor hoping that this will not cause any further bronchoconstriction. ? 1045 pm on 04/06/2022 Patient appears to be worse, I repeated a blood gas and this shows pH of 7.24, pCO2 113, PO2 74, HC03 of 48.? Clinically speaking although the patient appears to be responsive, she appears more fatigue, using more accessory muscles am concerned that she will quickly deteriorate.? While she understands me I indicated the possibility that she may need to be intubated and she agrees.? I also talked to the patient's daughter over the phone to my informed of all the above and she also agrees that we should do everything that needs to be done, the same time I obtained a verbal consent over the phone for the possibility of placing a central line if this was the case. ? 1100 as suspected, the patient quickly deteriorated, all the equipment has been ready for intubation and we will proceed with RSI given the significant decline, the patient will be intubated will place a central line.? Please see separate notes about the above-mentioned procedures.? This was successful without complications. ? ? Clinical update at 02:05 on 04/07/2022, repeat ABG on the following vent settings AC VC plus 28, 300, 10, FiO2 50% reveal a new pH of 7.49, pCO2 57, PO2 80, HC03 43, base excess 17.2. Overall the patient appears much better, will decrease her rate to 22 breaths per minute, increase the tidal volume to 350, titrate the FiO2 to goal of 92%.? Will discuss with Dr. Vaughn the possibility of administering Diamox although if anything I believe the patient needs some IV fluids at this point, will start her on lactated Ringer's at 100 cc an hour due to ELIZABETH, dehydration in the setting of insensible losses. ? GI PROPHYLAXIS: ?IV ppi DVT PROPHYLAXIS: ?SubQ Lovenox ? Critical care time used for critical evaluation of this patient, diagnosis, treatment and coordination of care, review her records and documentation TOTAL CRITICAL CARE TIME? 120? MIN . discussion and coordination with consultants, completely separate from any procedures performed. Patient's care was discussed in detail with Dr. Cadena.? He is aware of all the above as well as the plan of care for this patient. [facility] Past Medical History Medical History Cerebrovascular accident involving posterior circulation Cocaine use disorder, mild, in sustained remission COPD (chronic obstructive pulmonary disease) Diabetes mellitus Essential hypertension Moderate asthma Obesity TAURUS (obstructive sleep apnea) Oxygen dependent Family History Family History Father Medical history unknown Mother Diabetes Hypertension Father Medical history unknown Mother Hypertension Diabetes Other Substance use disorder Surgical History Surgical History History of cholecystectomy History of cholecystectomy History of open reduction and internal fixation (ORIF) procedure History of open reduction and internal fixation (ORIF) procedure History of tubal ligation History of tubal ligation Social History Social History Household Members: Spouse Housing: Apartment Do you presently have visiting nurse or other home services: Yes Alcohol intake: former Patient Tobacco Use Status: Former Tobacco user Tobacco use type: Cigarette Cigarette Packs Per Day: 0.75 Cigarettes Per Day: 15.0 Years Smoked: 31 years e-Cigarette/Vaping Use: Never Used Second Hand Smoke Exposure: Yes Use of substances other than those prescribed or required for medical reasons: No Substance Use Type: Crack/Cocaine Currently Displaying Signs/Symptoms of Drug Intoxication Withdrawal: No Have you been hit, kicked, punched, or otherwise hurt by someone within the past year? If so, by whom?: No Do you feel safe in your current relationship?: Yes Is there a partner from a previous relationship who is making you feel unsafe now?: No Are you made to feel afraid or neglected: No Advance Directives: Yes Advance Directives on File: Yes Advance Directives Date on File: 08/28/21 Do you have thoughts of harming others: None Recently lost weight without trying: No Nutrition Risks: No Nutritional Risk Patient : No : No Poor oral hygiene: No service: No Current occupational status: disabled Cognitive needs: Yes (walker/wheelchair/cane) Hearing needs: No Vision needs: Yes Meds Allergies Allergy/AdvReac Type Severity Reaction Status Date / Time No Known Allergies Allergy Verified 12/27/21 14:13 Active Medications: Current Medications Albuterol Sulfate (Albuterol Sulfate (0.083%) 2.5 Mg/3 Ml Vial.Neb) 2.5 mg INHALE Q4H PRN PRN Reason: Wheezing Albuterol/Ipratropium (Albuterol/Iprat 2.5/0.5mg 3 Ml Ampul.Neb) 3 ml INHALE Q6H [facility] Hydromorphone HCl (Hydromorphone Hcl 0.5 Mg/0.5 Ml Syringe) 0.5 mg IVPUSH Q2H PRN; Protocol PRN Reason: WOB Last Admin: 04/06/22 21:13 Dose: 0.5 mg Methylprednisolone Sodium Succinate (Methylprednisolone Sod Succ 125 Mg/2 Ml Vial) 60 mg IVPUSH Q8H [facility] Pharmacy Consult (Consult Rx Perform Med Rec) 1 each MISCELLANE ONCE PRN PRN Reason: Consult order Home Medications Medication Instructions Recorded Confirmed Last Taken Type hydralazine 10 mg tablet 10 mg PO BID 12/27/21 04/06/22 Unknown History amlodipine 10 mg tablet 1 tab PO DAILY 04/06/22 04/06/22 Unknown History fluticasone 500 mcg-salmeterol 50 1 puff inhalation BID 04/06/22 04/06/22 04/06/22 History mcg/dose blistr powdr for inhalation (Advair Diskus) furosemide 20 mg tablet (Lasix) 20 mg PO DAILY 04/06/22 04/06/22 04/06/22 History hydrochlorothiazide 25 mg tablet 1 tab PO DAILY 04/06/22 04/06/22 04/06/22 History Physical Exam Vital Signs: Vital Signs: Last Vital Signs Temp 97.5 F 04/06/22 19:06 Pulse 114 H 04/06/22 21:00 Resp 22 H 04/06/22 21:13 BP 159/99 H 04/06/22 21:00 Pulse Ox 92 04/06/22 21:00 O2 Del Method 04/06/22 21:00 FiO2 40 04/06/22 21:00 BMI result Body Mass Index 57.9 Results Labs CBC and Chem 7: 04/07/22 05:30 04/07/22 05:30 Labs: Laboratory Results - last 24 hr 04/06/22 04/06/22 04/06/22 13:44 13:44 13:44 MCV 91.4 MCH 26.9 L MCHC 29.4 L RDW 14.6 Plt Count 376 MPV 9.8 Immature Gran % (Auto) 0.6 H Neut % (Auto) 69.9 Lymph % (Auto) 19.4 L [place] % (Auto) 6.0 Eos % (Auto) 3.8 Baso % (Auto) 0.3 Lymph # (Auto) 2.9 [place] # (Auto) 0.9 Eos # (Auto) 0.6 H Baso # (Auto) 0.1 Abs Immat Gran (auto) 0.09 H Absolute Neuts (auto) 10.4 H Absolute Nucleated RBC 0.000 Nucleated RBC % (auto) 0.0 PT 10.9 INR 1.0 O2 Saturation ABG pH at Pt Temp ABG pCO2 at Pt Temp ABG pO2 at Pt Temp ABG HCO3 ABG Base Excess (Actual) VBG pH VBG pCO2 VBG pO2 VBG HCO3 VBG O2 Saturation VBG Base Excess Anion Gap 22 H Estim Creat Clear Calc TNP Estimated GFR > 60 Random Glucose 270 H Lactic Acid Lactic Acid F/U @ 2Hr Calcium 8.9 Magnesium 2.0 Total Bilirubin 0.3 Direct Bilirubin < 0.2 AST 26 D ALT 22 Alkaline Phosphatase 110 Troponin I High Sens B-Natriuretic Peptide Total Protein 8.2 H Albumin 4.4 Urine Opiates Screen Urine Fentanyl Screen Ur Barbiturates Screen Ur Phencyclidine Scrn Ur Amphetamines Screen U Benzodiazepines Scrn Urine Cocaine Screen U Marijuana (THC) Screen Influenza Type A (PCR) Influenza Type B (PCR) RSV RNA Qual (PCR) SARS-CoV-2 RNA (RT-PCR) 04/06/22 04/06/22 04/06/22 13:44 13:44 14:15 MCV MCH MCHC RDW Plt Count MPV Immature Gran % (Auto) Neut % (Auto) Lymph % (Auto) [place] % (Auto) Eos % (Auto) Baso % (Auto) Lymph # (Auto) [place] # (Auto) Eos # (Auto) Baso # (Auto) Abs Immat Gran (auto) Absolute Neuts (auto) Absolute Nucleated RBC Nucleated RBC % (auto) PT INR O2 Saturation ABG pH at Pt Temp ABG pCO2 at Pt Temp ABG pO2 at Pt Temp ABG HCO3 ABG Base Excess (Actual) VBG pH 7.29 L VBG pCO2 85 VBG pO2 115 VBG HCO3 41 H VBG O2 Saturation 99.0 VBG Base Excess 11.3 Anion Gap Estim Creat Clear Calc Estimated GFR Random Glucose Lactic Acid 3.0 H* Lactic Acid F/U @ 2Hr Calcium Magnesium Total Bilirubin Direct Bilirubin AST ALT Alkaline Phosphatase Troponin I High Sens 7.1 D B-Natriuretic Peptide 65 Total Protein Albumin Urine Opiates Screen Urine Fentanyl Screen Ur Barbiturates Screen Ur Phencyclidine Scrn Ur Amphetamines Screen U Benzodiazepines Scrn Urine Cocaine Screen U Marijuana (THC) Screen Influenza Type A (PCR) Influenza Type B (PCR) RSV RNA Qual (PCR) SARS-CoV-2 RNA (RT-PCR) 04/06/22 04/06/22 04/06/22 14:16 14:16 16:12 MCV MCH MCHC RDW Plt Count MPV Immature Gran % (Auto) Neut % (Auto) Lymph % (Auto) [place] % (Auto) Eos % (Auto) Baso % (Auto) Lymph # (Auto) [place] # (Auto) Eos # (Auto) Baso # (Auto) Abs Immat Gran (auto) Absolute Neuts (auto) Absolute Nucleated RBC Nucleated RBC % (auto) PT INR O2 Saturation 86.0 87.0 ABG pH at Pt Temp 7.25 L 7.29 L ABG pCO2 at Pt Temp 106 H* 91 H* ABG pO2 at Pt Temp 69 L 63 L ABG HCO3 47 H 44 H ABG Base Excess (Actual) 15.1 13.2 VBG pH VBG pCO2 VBG pO2 VBG HCO3 VBG O2 Saturation VBG Base Excess Anion Gap Estim Creat Clear Calc Estimated GFR Random Glucose Lactic Acid Lactic Acid F/U @ 2Hr Calcium Magnesium Total Bilirubin Direct Bilirubin AST ALT Alkaline Phosphatase Troponin I High Sens B-Natriuretic Peptide Total Protein Albumin Urine Opiates Screen Urine Fentanyl Screen Ur Barbiturates Screen Ur Phencyclidine Scrn Ur Amphetamines Screen U Benzodiazepines Scrn Urine Cocaine Screen U Marijuana (THC) Screen Influenza Type A (PCR) NEGATIVE Influenza Type B (PCR) NEGATIVE RSV RNA Qual (PCR) NEGATIVE SARS-CoV-2 RNA (RT-PCR) NEGATIVE 04/06/22 04/06/22 17:05 18:35 MCV MCH MCHC RDW Plt Count MPV Immature Gran % (Auto) Neut % (Auto) Lymph % (Auto) [place] % (Auto) Eos % (Auto) Baso % (Auto) Lymph # (Auto) [place] # (Auto) Eos # (Auto) Baso # (Auto) Abs Immat Gran (auto) Absolute Neuts (auto) Absolute Nucleated RBC Nucleated RBC % (auto) PT INR O2 Saturation ABG pH at Pt Temp ABG pCO2 at Pt Temp ABG pO2 at Pt Temp ABG HCO3 ABG Base Excess (Actual) VBG pH VBG pCO2 VBG pO2 VBG HCO3 VBG O2 Saturation VBG Base Excess Anion Gap Estim Creat Clear Calc Estimated GFR Random Glucose Lactic Acid Lactic Acid F/U @ 2Hr 2.3 H* Calcium Magnesium Total Bilirubin Direct Bilirubin AST ALT Alkaline Phosphatase Troponin I High Sens B-Natriuretic Peptide Total Protein Albumin Urine Opiates Screen Not Detected Urine Fentanyl Screen Not Detected Ur Barbiturates Screen Not Detected Ur Phencyclidine Scrn Not Detected Ur Amphetamines Screen Not Detected U Benzodiazepines Scrn Not Detected Urine Cocaine Screen Not Detected U Marijuana (THC) Screen Not Detected Influenza Type A (PCR) Influenza Type B (PCR) RSV RNA Qual (PCR) SARS-CoV-2 RNA (RT-PCR) Imaging Radiologist's Impressions: Impressions Chest X-Ray 04/06/22 14:25 IMPRESSION: Stable enlargement of the cardiac silhouette. Question peribronchial cuffing. This could be related to pulmonary venous redistribution or airways disease.
[2022-04-06] MEDS: Albuterol/Iprat 2.5/0.5MG 3 ML AMPUL.NEB INHALE (21:31)
[2022-04-06 22:26] LABS: ABG Base Excess 15.6 mmol/L; ABG HCO3 48 mmol/L (22-26); ABG pCO2 113 mmHg (32-45); ABG pH 7.24 (7.35-7.45); ABG pO2 74 mmHg (83-108)
[2022-04-06] MEDS: HYDROmorphone HCl 1 MG/ML SYRINGE IVPUSH (22:40)
[2022-04-06] MEDS: Azithromycin 500 MG in 0.9 % Sodium Chloride 250 ML 125 MG IV (22:41)
[2022-04-06] MEDS: Enoxaparin Sodium 40 MG/0.4 ML SYRINGE SUBCUT (22:41)
--- NOTE | 2022-04-06 23:10 | P.PCNCC_ITS ---
Procedures Date of Service Date of Service: 04/06/22 Intubation Intubation Comments: Given that the patient developed progressive respiratory fatigue, somnolence and hypoxia despite BiPAP, RSI was followed, patient was preoxygenated, the above- mentioned medications were used for sedation and paralysis. Using the GlideScope, the close was identified and using a 4.0 Blade, an ETT tube 7.5 was inserted via direct vision in a nontraumatic way. Post intubation, breath sounds were equal and bilateral, CO2 test in show positive color change to yellow, SpO2 maintained. The tube was secured at 23 cm at the upper lip. Patient tolerated the procedure well without complications. Postop x-ray showed endotracheal tube approximately 3 cm above the fernando. Case was discussed in detail with Dr. Cadena. He is aware of all the above as well as the plan of care for this patient. Consent for Procedure: Elective - informed consent obtained (From the patient as well as the patient's daughter, the patient quickly deteriorated.) Time out performed: Yes Sedative: propofol Mg given: 100 Paralytic: rocuronium Mg given: 50 Laryngoscope: fiber optic video scope ET tube size: 7.5 ET tube uncuffed: Yes Tube secured depth (cm): 23 Tube secured location: lips Tube placement confirmation: visualized tube passing through cords Patient tolerated procedure: well and no complications Intubation complications: none
[2022-04-06] MEDS: propofoL 200 MG/20 ML VIAL 100 MG IVPUSH (23:11)
[2022-04-06] MEDS: Rocuronium Bromide 50 MG/5 ML VIAL IVPUSH (23:11)
[2022-04-06] MEDS: propofoL 1,000 MG/100 ML VIAL 24.23 MG IVCONT (23:12)
--- NOTE | 2022-04-06 23:48 | P.PCNCC_ITS ---
Procedures Date of Service Date of Service: 04/06/22 Central Line Placement A quick time-out was made for clarification and proper patient identification, patient was positioned, landmarks were identified, US used to locate a large compressible IJ. The right neck was widely prepped and draped in a full sterile fashion. Ultrasound was used to locate again the right IJ, the vein was cannulated on the 1st pass with an 18 gauge thin needle, dark nonpulsatile blood return was obtained. The wire was threaded, a small incision was made at its base and dilator inserted. A triple-lumen central venous catheter was advanced into the vein up to the hub without problems, wired was removed. Ports had good blood return and flushed x3. The catheter was secured with 3 sutures at 3 sites, a Biopatch and dry sterile dressing were applied.Post procedure chest x- ray showed the line to be in good position without pneumothorax. No bleeding or complications noted.: Time out performed: Yes Sterile Technique Used: Yes Patient placed on monitor/pulse ox: Yes MD prep: mask, gown and gloves Central line prep: Chlorhexidine scrub Ultrasound used for placement: Yes Central line lumen inserted: triple Post procedure: sutured in place, good blood return, all ports aspirated, flushed, capped and sterile dressing applied Post procedure x-ray: tip of catheter in good position and no pneumothorax seen Patient tolerated procedure: well, no complications and other Complications: none
[2022-04-07] VITALS (35 sets, daily range): BP systolic 105–167; BP diastolic 48–82; PULSE 82–126; RESP 16–28; TEMP 32–37.8; O2SAT 88–96; BMI 57.6
[2022-04-07] MEDS: propofoL 1,000 MG/100 ML VIAL 32.3 MG IVCONT ×2 (02:10→05:04)
[2022-04-07 02:15] LABS: ABG Base Excess 17.2 mmol/L; ABG HCO3 43 mmol/L (22-26); ABG pCO2 57 mmHg (32-45); ABG pH 7.49 (7.35-7.45); ABG pO2 80 mmHg (83-108)
--- NOTE | 2022-04-07 02:19 | PC.NURSE ---
assumed care of pt at 1900, pt on bipap , increased work of breathing noted, , S tach on tele 120s, bp 170's over 100's, sats 88-91%, pt very tearful and anxious, made aware new order Prn dilaudid 0.5mg q2hr admin with good effect, new order for lopressor 5mg IV given with good effect on bp and rate, pt pulling at bipap mask, anxious, tearful. provider Damián at bedside frequently to asses pt. ABGs drawn CO2 113. decision made to intubate. just prior to intubatation pt became unresponsive. 100 of propofol and 50 of selina given, ETT 7.5 23 at the lip, Ac/VC +25 300 peep 10 fio2 60%. OG tube placed. placement confirmed with chest xr. pt placed on prop drip at 20, bp dcreased, placed on levo drip see aug. Mo placed clear yellow urine. Repeat ABGs 2 hours after being on vent CO2 57.
[2022-04-07 02:28] LABS: ABG Refer to POC result
[2022-04-07 02:41] LABS: ABG Refer to POC result
[2022-04-07 02:53] LABS: Glucose, Whole Blood 255 mg/dL (60-115)
[2022-04-07] MEDS: Lactated Ringers 1,000 ML 100 ML IVCONT (03:08)
[2022-04-07] MEDS: Insulin Lispro 100 UNIT/ML 3 ML VIAL SUBCUT ×3 (03:08→17:41)
[2022-04-07] MEDS: Albuterol/Iprat 2.5/0.5MG 3 ML AMPUL.NEB INHALE ×4 (04:12→19:13)
[2022-04-07 05:42] LABS: Basophils Percent Auto 0.1 % (0-2); Hematocrit 37.4 % (37.0-47.0); Hemoglobin 11.1 g/dl (12.0-16.0); Imm Gran Abs Auto 0.06 X10*3/uL (0.00-0.03); Imm Gran Pct Auto 0.4 % (0.0-0.4); Lymphocytes Absolute Auto 0.7 X10*3/uL (1.2-4.9); Lymphocytes Percent Auto 4.9 % (20-40); MANUAL DIFF FLAG SCAN; Mean Corpuscular HGB Conc 29.7 g/dl (31.0-35.0); Mean Corpuscular Volume 87.6 fL (80.0-98.0); Mean Platelet Volume 9.8 fL (9.4-12.3); Monocytes Absolute Auto 0.1 X10*3/uL (0.1-1.2); Monocytes Percent Auto 0.8 % (2-11); Neutrophils Absolute Auto 13.4 x10*3/uL (2.0-8.3); Neutrophils Percent Auto 93.8 % (45-73); Platelet Count 320 X10*3/uL (160-400); Red Blood Count 4.27 X10*6/uL (4.20-5.50); Red Cell Distribution Width 14.7 % (11.0-16.0); SCAN SMEAR FLAG 1; White Blood Count 14.3 X10*3/uL (4.8-10.8)
[2022-04-07 05:43] LABS: VBG Base Excess 18.7 mmol/L; VBG HCO3 45 mmol/L (22-26); VBG pCO2 60 mmHg; VBG pH 7.48 (7.32-7.43); VBG pO2 51 mmHg
[2022-04-07 05:44] LABS: Venous Blood Gas Refer to POC result
[2022-04-07] MEDS: Pantoprazole Sodium 40 MG/10 ML VIAL IVPUSH (05:44)
[2022-04-07 05:45] LABS: Glucose, Whole Blood 291 mg/dL (60-115)
[2022-04-07] MEDS: methylPREDNISolone Sod Succ 125 MG/2 ML VIAL 60 MG IVPUSH ×3 (05:45→21:17)
[2022-04-07 05:46] LABS: SLIDE REVIEW VERIFIED
[2022-04-07 05:59] LABS: Alanine Aminotransferase 33 U/L (0-31); Albumin Level 3.9 g/dL (3.5-5.0); Alkaline Phosphatase 99 U/L (39-117); Anion Gap 17 (12-20); Aspartate Amino Transferase 22 U/L (5-31); Bilirubin Total 0.3 mg/dL (0.0-1.0); Blood Urea Nitrogen 25 mg/dL (9-16); Calcium 8.9 mg/dL (8.4-10.2); Carbon Dioxide 40 mmol/L (22-29); Chloride 89 mmol/L (96-108); Creatinine Clr Calc Pharmacy 94.6; Estimated Glomerular Filt Rate > 60; Glucose Random 307 mg/dL (60-115); Phosphorus 1.9 mg/dL (2.7-4.5); Potassium 4.3 mmol/L (3.3-5.1); Sodium 142 mmol/L (135-145)
[2022-04-07] MEDS: Potassium Phosphate/NS 15 MMOL/250 ML PLAST..BAG 62.5 MMOL IV (06:48)
[2022-04-07] MEDS: propofoL 1,000 MG/100 ML VIAL 40.38 MG IVCONT ×8 (07:30→22:40)
--- NOTE | 2022-04-07 12:51 | P.PNCC_ITS ---
Subjective Subjective Date of Service: 04/07/22 Interval History: Mrs. Keenan was admitted to ICU yesterday with acute respiratory failure 2? COPD exacerbation. The patient is a 61 yo F with PMHx of supermorbid obesity (5?, 134kg, BMI 58), TAURUS on CPAP, COPD 2? smoking quit 6mo ago, recent dx asthma, wears oxygen 31/12, DM, HTN, CHF, stroke this past August w resid LLE hemiparesis.? told me that the patient was hospitalized at [facility] 3-4 months ago for CO2 retention. She takes amlodipine, Lasix 20 mg, hydrochlorothiazide, verapamil 240 mg, hydralazine 10 mg bid, lisinopril 20 mg daily, aspirin, atorvastatin, and metformin 500 mg bid. The patient lives with her .? I spoke with him at length this morning.? She does not work.? Leaves their apartment only to go to doctors? appointments.? Ambulates with a walker.? Gets SOB walking 10 feet.? She does no cooking or cleaning.? Needs help with all her ADLs.? They have a CYBER DEFENSE INCIDENT RESPONDER for 3 hrs/day.? He works in maintenance at the [email or web address].? He told me that the patient has never been in the ICU before, never been intubated. The patient was BIBA to the ED yesterday b/o resp distress.? The patient reported some minor cough without sputum production and chills with no fever, and shortness of breath for the prior 24 hours. ?At the scene, the patient was on her CPAP, diaphoretic, w Sat 94%. On arrivl to the ED, she was mildly tachypneic and tachycardic and markedly hypertensive,? She was put on BiPAP right away.? On 40%, sat was 90%.? Breath sounds were very diminished, with faint wheezes. ?She was given bronchodilators and steroids.? Initial VBG showed 7.29/85/+11.? WBC was 14.9, bicarb 33, BUN/creat 19/0.7, lactic acid 3.0 which went down to 2.3.? COVID negative.? U tox negative.? CXR showed stable marked cardiac enlargement with mild chronic lung dz.? No gross infiltrates, small blunting at the right angle. The patient was admitted to ICU.? On BiPAP, it was difficult to get her tidal vol consistently > 300 cc.? Required Ipap of 22cm, Epap of 10cm.? She was given BDs and steroids, Zithromax, and Lopressor for her HTN.? Despite our best efforts, we could not keep her tidal vol up and her pCO2 reina and she became less responsive.? She required tracheal intubation before midnite.? A CVL was placed.? Repeat ABG on the ventilator showed her pCO2 down to 57, base excess 17. This morning?s CVBG showed 7.48/60/+18 on ACVC+ 20/300.? I dropped the rate to 16, incr VT to 360cc.? On ACVC+ 16/360/50%/+10, RR was 17, Vt 350cc Ve 5.9L, PIP 28cm, ETCO2 49, Sat 91%.? CVBG on that setting showed 7.46/63/+18.? HR is 109, SR w PACs.? BP 138/81.? She?s afebrile.? Lightly sedated on propofol 45ug.? No JVD at 30?.? Chest has a mild expiratory wheeze with minimally prolonged expiratory phase. ?Auto PEEP was 1.5 cm.? Soft heart tones, I heard no murmur or gallops.? The abdomen is obese and benign.? She has mild peripheral and possibly central edema. LABORATORY DATA:? Low.? Notably, BUN/creatinine up slightly to 25/0.8, bicarb 40, random glucose 307, phosphorus 1.9. My bedside ECHOCARDIOGRAM:? Image quality fair.? At least mild LVH. ?LV function looks normal, although inadequate endocardial definition precludes an exact number.? No RWMA noted.? RV looks normal sized.? AV not adequately visualized.? No MR.? Trace TR.? CWD envelope measured 1.8 m/s.? IVC measured 1.9 cm with minimal inspiratory collapse. IMPRESSION: 1. Underlying supermorbid obesity. 2. Obesity hypoventilation syndrome 3. Chronic hypoxemic and hypercapnic respiratory failure.? She?s a CO2 retainer. 4. COPD 5. Acute COPD exacerbation.? Rx BDs, steroids, Zithromax. 6. Acute hypoxemic and hypercarbic respiratory failure.? 2? above.? No gross evidence of CHF. 7. ELIZABETH. ?Prerenal numbers suggest hypovolemia vs cardiorenal syndrome.? At this point, I?ll hold further fluids, hold diuresis. 8. DM.? On SS Lispro.? I?ll add Lantus. 9. Metabolic alkalosis.? Diamox. 10. Nutrition.? She?s getting a lot of calories via propofol.? Add small dose Promote. 11. No evidence of sepsis. 12. DVT prophylaxis:? Lovenox 40mg bid. Critical care time:? 80+ min. Critical Care Time (minutes): 80 Physical Exam Vital Signs: Vital Signs: Last Vital Signs Temp 99.3 F 04/07/22 12:00 Pulse 108 H 04/07/22 12:00 Resp 16 04/07/22 12:00 BP 138/81 04/07/22 12:00 Pulse Ox 91 L 04/07/22 12:00 O2 Del Method 04/07/22 12:00 FiO2 50 04/07/22 12:00 BMI result Body Mass Index 57.6 Objective Data Labs CBC & Chem 7: 04/07/22 05:30 04/07/22 05:30 Labs: Laboratory Results - last 24 hr 04/06/22 04/06/22 04/06/22 13:44 13:44 13:44 WBC 14.9 H RBC 4.76 Hgb 12.8 Hct 43.5 MCV 91.4 MCH 26.9 L MCHC 29.4 L RDW 14.6 Plt Count 376 MPV 9.8 Immature Gran % (Auto) 0.6 H Neut % (Auto) 69.9 Lymph % (Auto) 19.4 L [place] % (Auto) 6.0 Eos % (Auto) 3.8 Baso % (Auto) 0.3 Lymph # (Auto) 2.9 [place] # (Auto) 0.9 Eos # (Auto) 0.6 H Baso # (Auto) 0.1 Abs Immat Gran (auto) 0.09 H Absolute Neuts (auto) 10.4 H Absolute Nucleated RBC 0.000 Nucleated RBC % (auto) 0.0 Smear Tech's Comments PT 10.9 INR 1.0 O2 Saturation ABG pH at Pt Temp ABG pCO2 at Pt Temp ABG pO2 at Pt Temp ABG HCO3 ABG Base Excess (Actual) VBG pH VBG pCO2 VBG pO2 VBG HCO3 VBG O2 Saturation VBG Base Excess Sodium 140 Potassium 5.0 Chloride 90 L Carbon Dioxide 33 H Anion Gap 22 H BUN 19 H Creatinine 0.77 Estim Creat Clear Calc TNP Estimated GFR > 60 POC Glucose Random Glucose 270 H Lactic Acid Lactic Acid F/U @ 2Hr Calcium 8.9 Phosphorus Magnesium 2.0 Total Bilirubin 0.3 Direct Bilirubin < 0.2 AST 26 D ALT 22 Alkaline Phosphatase 110 Troponin I High Sens B-Natriuretic Peptide Total Protein 8.2 H Albumin 4.4 Urine Opiates Screen Urine Fentanyl Screen Ur Barbiturates Screen Ur Phencyclidine Scrn Ur Amphetamines Screen U Benzodiazepines Scrn Urine Cocaine Screen U Marijuana (THC) Screen Influenza Type A (PCR) Influenza Type B (PCR) RSV RNA Qual (PCR) SARS-CoV-2 RNA (RT-PCR) 04/06/22 04/06/22 04/06/22 13:44 13:44 14:15 WBC RBC Hgb Hct MCV MCH MCHC RDW Plt Count MPV Immature Gran % (Auto) Neut % (Auto) Lymph % (Auto) [place] % (Auto) Eos % (Auto) Baso % (Auto) Lymph # (Auto) [place] # (Auto) Eos # (Auto) Baso # (Auto) Abs Immat Gran (auto) Absolute Neuts (auto) Absolute Nucleated RBC Nucleated RBC % (auto) Smear Tech's Comments PT INR O2 Saturation ABG pH at Pt Temp ABG pCO2 at Pt Temp ABG pO2 at Pt Temp ABG HCO3 ABG Base Excess (Actual) VBG pH 7.29 L VBG pCO2 85 VBG pO2 115 VBG HCO3 41 H VBG O2 Saturation 99.0 VBG Base Excess 11.3 Sodium Potassium Chloride Carbon Dioxide Anion Gap BUN Creatinine Estim Creat Clear Calc Estimated GFR POC Glucose Random Glucose Lactic Acid 3.0 H* Lactic Acid F/U @ 2Hr Calcium Phosphorus Magnesium Total Bilirubin Direct Bilirubin AST ALT Alkaline Phosphatase Troponin I High Sens 7.1 D B-Natriuretic Peptide 65 Total Protein Albumin Urine Opiates Screen Urine Fentanyl Screen Ur Barbiturates Screen Ur Phencyclidine Scrn Ur Amphetamines Screen U Benzodiazepines Scrn Urine Cocaine Screen U Marijuana (THC) Screen Influenza Type A (PCR) Influenza Type B (PCR) RSV RNA Qual (PCR) SARS-CoV-2 RNA (RT-PCR) 04/06/22 04/06/22 04/06/22 14:16 14:16 16:12 WBC RBC Hgb Hct MCV MCH MCHC RDW Plt Count MPV Immature Gran % (Auto) Neut % (Auto) Lymph % (Auto) [place] % (Auto) Eos % (Auto) Baso % (Auto) Lymph # (Auto) [place] # (Auto) Eos # (Auto) Baso # (Auto) Abs Immat Gran (auto) Absolute Neuts (auto) Absolute Nucleated RBC Nucleated RBC % (auto) Smear Tech's Comments PT INR O2 Saturation 86.0 87.0 ABG pH at Pt Temp 7.25 L 7.29 L ABG pCO2 at Pt Temp 106 H* 91 H* ABG pO2 at Pt Temp 69 L 63 L ABG HCO3 47 H 44 H ABG Base Excess (Actual) 15.1 13.2 VBG pH VBG pCO2 VBG pO2 VBG HCO3 VBG O2 Saturation VBG Base Excess Sodium Potassium Chloride Carbon Dioxide Anion Gap BUN Creatinine Estim Creat Clear Calc Estimated GFR POC Glucose Random Glucose Lactic Acid Lactic Acid F/U @ 2Hr Calcium Phosphorus Magnesium Total Bilirubin Direct Bilirubin AST ALT Alkaline Phosphatase Troponin I High Sens B-Natriuretic Peptide Total Protein Albumin Urine Opiates Screen Urine Fentanyl Screen Ur Barbiturates Screen Ur Phencyclidine Scrn Ur Amphetamines Screen U Benzodiazepines Scrn Urine Cocaine Screen U Marijuana (THC) Screen Influenza Type A (PCR) NEGATIVE Influenza Type B (PCR) NEGATIVE RSV RNA Qual (PCR) NEGATIVE SARS-CoV-2 RNA (RT-PCR) NEGATIVE 04/06/22 04/06/22 04/06/22 17:05 18:35 22:19 WBC RBC Hgb Hct MCV MCH MCHC RDW Plt Count MPV Immature Gran % (Auto) Neut % (Auto) Lymph % (Auto) [place] % (Auto) Eos % (Auto) Baso % (Auto) Lymph # (Auto) [place] # (Auto) Eos # (Auto) Baso # (Auto) Abs Immat Gran (auto) Absolute Neuts (auto) Absolute Nucleated RBC Nucleated RBC % (auto) Smear Tech's Comments PT INR O2 Saturation 90.0 ABG pH at Pt Temp 7.24 L ABG pCO2 at Pt Temp 113 H* ABG pO2 at Pt Temp 74 L ABG HCO3 48 H ABG Base Excess (Actual) 15.6 VBG pH VBG pCO2 VBG pO2 VBG HCO3 VBG O2 Saturation VBG Base Excess Sodium Potassium Chloride Carbon Dioxide Anion Gap BUN Creatinine Estim Creat Clear Calc Estimated GFR POC Glucose Random Glucose Lactic Acid Lactic Acid F/U @ 2Hr 2.3 H* Calcium Phosphorus Magnesium Total Bilirubin Direct Bilirubin AST ALT Alkaline Phosphatase Troponin I High Sens B-Natriuretic Peptide Total Protein Albumin Urine Opiates Screen Not Detected Urine Fentanyl Screen Not Detected Ur Barbiturates Screen Not Detected Ur Phencyclidine Scrn Not Detected Ur Amphetamines Screen Not Detected U Benzodiazepines Scrn Not Detected Urine Cocaine Screen Not Detected U Marijuana (THC) Screen Not Detected Influenza Type A (PCR) Influenza Type B (PCR) RSV RNA Qual (PCR) SARS-CoV-2 RNA (RT-PCR) 04/07/22 04/07/22 04/07/22 02:09 02:49 05:30 WBC 14.3 H RBC 4.27 Hgb 11.1 L Hct 37.4 MCV 87.6 MCH 26.0 L MCHC 29.7 L RDW 14.7 Plt Count 320 MPV 9.8 Immature Gran % (Auto) 0.4 Neut % (Auto) 93.8 H Lymph % (Auto) 4.9 L [place] % (Auto) 0.8 L Eos % (Auto) 0.0 Baso % (Auto) 0.1 Lymph # (Auto) 0.7 L [place] # (Auto) 0.1 Eos # (Auto) 0.0 Baso # (Auto) 0.0 Abs Immat Gran (auto) 0.06 H Absolute Neuts (auto) 13.4 H Absolute Nucleated RBC 0.000 Nucleated RBC % (auto) 0.0 Smear Tech's Comments VERIFIED PT INR O2 Saturation 97.0 ABG pH at Pt Temp 7.49 H ABG pCO2 at Pt Temp 57 H ABG pO2 at Pt Temp 80 L ABG HCO3 43 H ABG Base Excess (Actual) 17.2 VBG pH VBG pCO2 VBG pO2 VBG HCO3 VBG O2 Saturation VBG Base Excess Sodium Potassium Chloride Carbon Dioxide Anion Gap BUN Creatinine Estim Creat Clear Calc Estimated GFR POC Glucose 255 H Random Glucose Lactic Acid Lactic Acid F/U @ 2Hr Calcium Phosphorus Magnesium Total Bilirubin Direct Bilirubin AST ALT Alkaline Phosphatase Troponin I High Sens B-Natriuretic Peptide Total Protein Albumin Urine Opiates Screen Urine Fentanyl Screen Ur Barbiturates Screen Ur Phencyclidine Scrn Ur Amphetamines Screen U Benzodiazepines Scrn Urine Cocaine Screen U Marijuana (THC) Screen Influenza Type A (PCR) Influenza Type B (PCR) RSV RNA Qual (PCR) SARS-CoV-2 RNA (RT-PCR) 04/07/22 04/07/22 04/07/22 05:30 05:37 05:39 WBC RBC Hgb Hct MCV MCH MCHC RDW Plt Count MPV Immature Gran % (Auto) Neut % (Auto) Lymph % (Auto) [place] % (Auto) Eos % (Auto) Baso % (Auto) Lymph # (Auto) [place] # (Auto) Eos # (Auto) Baso # (Auto) Abs Immat Gran (auto) Absolute Neuts (auto) Absolute Nucleated RBC Nucleated RBC % (auto) Smear Tech's Comments PT INR O2 Saturation ABG pH at Pt Temp ABG pCO2 at Pt Temp ABG pO2 at Pt Temp ABG HCO3 ABG Base Excess (Actual) VBG pH 7.48 H VBG pCO2 60 VBG pO2 51 VBG HCO3 45 H VBG O2 Saturation 81.0 VBG Base Excess 18.7 Sodium 142 Potassium 4.3 Chloride 89 L Carbon Dioxide 40 H* D Anion Gap 17 BUN 25 H Creatinine 0.81 Estim Creat Clear Calc 94.6 Estimated GFR > 60 POC Glucose 291 H Random Glucose 307 H Lactic Acid Lactic Acid F/U @ 2Hr Calcium 8.9 Phosphorus 1.9 L Magnesium Total Bilirubin 0.3 Direct Bilirubin AST 22 ALT 33 H Alkaline Phosphatase 99 Troponin I High Sens B-Natriuretic Peptide Total Protein 7.0 Albumin 3.9 Urine Opiates Screen Urine Fentanyl Screen Ur Barbiturates Screen Ur Phencyclidine Scrn Ur Amphetamines Screen U Benzodiazepines Scrn Urine Cocaine Screen U Marijuana (THC) Screen Influenza Type A (PCR) Influenza Type B (PCR) RSV RNA Qual (PCR) SARS-CoV-2 RNA (RT-PCR) Microbiology Microbiology Results: Microbiology 04/06/22 14:07 Blood - Venous Blood Culture - Preliminary Prelim: GPC Gram Stain only Quality Stroke Does the patient have a stroke diagnosis?: No VTE Prior VTE?: No VTE Risk Level:: Medical - moderate - high VTE Device Contraindication: N/A - Device Ordered VTE Drug Contraindication: N/A - Med Ordered Critical Care Time Critical Care Time (minutes): 90
[2022-04-07 13:05] LABS: VBG Base Excess 18.5 mmol/L; VBG HCO3 45 mmol/L (22-26); VBG pCO2 63 mmHg; VBG pH 7.46 (7.32-7.43); VBG pO2 51 mmHg
[2022-04-07 13:18] LABS: Lactic Acid 1.1 mmol/L (0.5-2.0)
[2022-04-07 13:28] LABS: Venous Blood Gas Refer to POC result
[2022-04-07 14:15] LABS: Glucose, Whole Blood 241 mg/dL (60-115)
[2022-04-07] MEDS: VerapamiL HCL 120 MG TABLET G-TUBE ×2 (15:11→20:23)
[2022-04-07 17:31] LABS: Glucose, Whole Blood 261 mg/dL (60-115)
[2022-04-07] MEDS: acetaZOLAMIDE sodium 500 MG VIAL IVPUSH (17:41)
[2022-04-07] MEDS: Enoxaparin Sodium 40 MG/0.4 ML SYRINGE SUBCUT (20:22)
[2022-04-07] MEDS: Azithromycin 500 MG in 0.9 % Sodium Chloride 250 ML 125 MG IV (21:16)
[2022-04-08] VITALS (34 sets, daily range): BP systolic 114–145; BP diastolic 65–94; PULSE 89–116; RESP 10–95; TEMP 34.9–37.7; O2SAT 40–97; BMI 58.3
[2022-04-08] MEDS: propofoL 1,000 MG/100 ML VIAL 40.38 MG IVCONT ×3 (01:07→05:42)
[2022-04-08] MEDS: acetaZOLAMIDE sodium 500 MG VIAL IVPUSH ×3 (01:09→16:35)
[2022-04-08] MEDS: Insulin Lispro 100 UNIT/ML 3 ML VIAL SUBCUT ×5 (01:31→20:05)
[2022-04-08 01:32] LABS: Glucose, Whole Blood 290 mg/dL (60-115)
[2022-04-08] MEDS: Albuterol/Iprat 2.5/0.5MG 3 ML AMPUL.NEB INHALE ×4 (04:53→19:48)
[2022-04-08 05:19] LABS: VBG HCO3 35 mmol/L (22-26); VBG pCO2 52 mmHg; VBG pH 7.43 (7.32-7.43); VBG pO2 54 mmHg
[2022-04-08 05:20] LABS: MANUAL DIFF FLAG NO
[2022-04-08 05:21] LABS: Hematocrit 36.5 % (37.0-47.0); Hemoglobin 11.2 g/dl (12.0-16.0); Imm Gran Abs Auto 0.03 X10*3/uL (0.00-0.03); Imm Gran Pct Auto 0.3 % (0.0-0.4); Lymphocytes Absolute Auto 0.8 X10*3/uL (1.2-4.9); Lymphocytes Percent Auto 7.6 % (20-40); Mean Corpuscular HGB Conc 30.7 g/dl (31.0-35.0); Mean Corpuscular Hemoglobin 26.5 pg (27.0-33.0); Mean Corpuscular Volume 86.3 fL (80.0-98.0); Mean Platelet Volume 9.9 fL (9.4-12.3); Monocytes Absolute Auto 0.4 X10*3/uL (0.1-1.2); Monocytes Percent Auto 3.9 % (2-11); Neutrophils Absolute Auto 9.2 x10*3/uL (2.0-8.3); Neutrophils Percent Auto 88.2 % (45-73); Platelet Count 289 X10*3/uL (160-400); Red Blood Count 4.23 X10*6/uL (4.20-5.50); White Blood Count 10.5 X10*3/uL (4.8-10.8)
[2022-04-08] MEDS: methylPREDNISolone Sod Succ 125 MG/2 ML VIAL 60 MG IVPUSH ×3 (05:26→20:03)
[2022-04-08] MEDS: Pantoprazole Sodium 40 MG/10 ML VIAL IVPUSH (05:30)
[2022-04-08 05:40] LABS: Anion Gap 16 (12-20); Blood Urea Nitrogen 29 mg/dL (9-16); Calcium 8.8 mg/dL (8.4-10.2); Carbon Dioxide 33 mmol/L (22-29); Chloride 96 mmol/L (96-108); Creatinine Clr Calc Pharmacy 98.6; Estimated Glomerular Filt Rate > 60; Glucose Random 287 mg/dL (60-115); Magnesium 2.3 mg/dL (1.6-2.6); Phosphorus 3.9 mg/dL (2.7-4.5); Potassium 3.4 mmol/L (3.3-5.1); Sodium 142 mmol/L (135-145); Venous Blood Gas Refer to POC result
[2022-04-08 05:50] LABS: Glucose, Whole Blood 251 mg/dL (60-115)
[2022-04-08] MEDS: Chlorhexidine Gluc Oral Rinse 15 ML MOUTHWASH BUCCAL (07:07)
[2022-04-08] MEDS: Enoxaparin Sodium 40 MG/0.4 ML SYRINGE SUBCUT ×2 (07:08→20:05)
[2022-04-08] MEDS: VerapamiL HCL 120 MG TABLET G-TUBE (07:08)
[2022-04-08] MEDS: HYDROmorphone HCl 1 MG/ML SYRINGE IVPUSH (07:08)
[2022-04-08] MEDS: fentaNYL citrate/PF 100 MCG/2 ML VIAL IVPUSH (09:10)
[2022-04-08] MEDS: propofoL 1,000 MG/100 ML VIAL 8.08 MG IVCONT (09:22)
[2022-04-08 11:24] LABS: Glucose, Whole Blood 250 mg/dL (60-115)
--- NOTE | 2022-04-08 11:44 | PM.CCPN ---
Subjective Subjective Date of Service: 04/08/22 Interval History: Mrs. Keenan was admitted to ICU on Apr 06 with acute respiratory failure 2? COPD exacerbation. The patient is a 61 yo F with PMHx of supermorbid obesity (5?, 134kg, BMI 58), TAURUS on CPAP, COPD 2? smoking quit 6mo ago, recent dx asthma, wears oxygen 31/12, DM, HTN, CHF (BNP 1000 this past November), stroke this past August w resid LLE hemiparesis.? told me that the patient was hospitalized at [facility] 3-4 months ago for CO2 retention. She takes amlodipine, Lasix 20 mg, hydrochlorothiazide, verapamil 240 mg, hydralazine 10 mg bid, lisinopril 20 mg daily, aspirin, atorvastatin, and metformin 500 mg bid. The patient lives with her .? She does not work.? Leaves their apartment only to go to doctors? appointments.? Ambulates with a walker.? Gets SOB walking 10 feet.? She does no cooking or cleaning.? Needs help with all her ADLs.? They have a ASSOCIATE DENTIST for 3 hrs/day.? He works in maintenance at the [employer]? He told me that the patient has never been in the ICU before, never been intubated. The patient was BIBA to the ED on 04/06 b/o resp distress.? The patient reported some minor cough without sputum production and chills with no fever, and shortness of breath for the prior 24 hours.? At the scene, the patient was on her CPAP, diaphoretic, w Sat 94%. On arrivl to the ED, she was mildly tachypneic and tachycardic and markedly hypertensive,? She was put on BiPAP right away.? On 40%, sat was 90%.? Breath sounds were very diminished, with faint wheezes.? She was given bronchodilators and steroids.? Initial VBG showed 7.29/85/+11.? WBC was 14.9, bicarb 33, BUN/creat 19/0.7, lactic acid 3.0 which went down to 2.3.? COVID negative.? U tox negative.? CXR showed stable marked cardiac enlargement with mild chronic lung dz.? No gross infiltrates, small blunting at the right angle. The patient was admitted to ICU.? On BiPAP, it was difficult to get her tidal vols consistently > 300 cc.? Required Ipap of 22cm, Epap of 10cm.? She was given BDs and steroids, Zithromax, and Lopressor for her HTN.? Despite our best efforts, we could not keep her tidal vol up and her pCO2 reina and she became less responsive.? She required tracheal intubation before midnite.? A CVL was placed.? Repeat ABG on the ventilator showed her pCO2 down to 57, base excess 17.? She was put on Diamox Yest morning?s CVBG showed 7.48/60/+18.? She was easily arousable from propofol sedation.? She still had wheezes and a prolonged exp phase.? We continued BDs and steroids. This morning she easily awoke from sedation and easily went onto PSV.? She?s calm and appropriately responsive.? She?s afebrile.? On PSV 10/40%/+8, RR is 8, Vt 800cc, Ve 5.5L, PIP 18cm, ETCO2 55mm, Sat 94%.? CVBG on that showed 7.41/52/+8 (on Diamox).? HR is 99, SR w PACs.? BP 116/70.? No JVD at 30?.? Chest has a mild expiratory wheeze with minimally prolonged expiratory phase.? Auto PEEP was 0.9 cm.? Soft heart tones, I heard no murmur or gallops.? The abdomen is obese and benign.? She has mild peripheral and possibly central edema. Extubated onto CPAP without incident.? Fully awake and smiling.? On CPAP 10/40%, RR is 15, Vt 500-900s, Sat 95%.? Breathing easy, no access musc use. LABORATORY DATA:? Below.? Notably, BUN/creatinine up slightly to 29/0.7, bicarb down to 33, random glucose 287, phosphorus 3.9 after repletion yesterday. My bedside ECHOCARDIOGRAM yesterday:? Image quality fair.? At least mild LVH.? LV function looks normal, although inadequate endocardial definition precludes an exact EF number.? No RWMA noted.? RV looks normal sized.? AV not adequately visualized.? No MR.? Trace TR.? CWD envelope measured 1.8 m/s.? IVC measured 1.9 cm with minimal inspiratory collapse. IMPRESSION: 1. Underlying supermorbid obesity. 2. Obesity hypoventilation syndrome 3. Chronic hypoxemic and hypercapnic respiratory failure.? She?s a CO2 retainer. 4. COPD 5. Acute COPD exacerbation.? Rx BDs, steroids, Zithromax.? Still wheezing slightly, but much better air movement today. 6. Acute hypoxemic and hypercarbic respiratory failure.? 2? above.? No gross evidence of CHF. 7. ELIZABETH.? Prerenal numbers suggest hypovolemia vs cardiorenal syndrome.? At this point, I?m not giving her any fluids, nor diuresing her. ?Her urine in the Mo back is clear light yellow. 8. DM.? On SS Lispro.? I?ll add Lantus. 9. Metabolic alkalosis.? Diamox. 10. Hypophosphatemia.? Repleted. 11. DVT prophylaxis:? Lovenox 40mg bid. I spoke to the patient and her at some length, via halal butcher, about the importance of losing weight to prevent this from happening again.? Emphasized the importance of cutting out soda, fruit juices, other fruit drinks as half the fisher. Critical care time:? 70+ min. Critical Care Time (minutes): 70 Physical Exam Vital Signs: Vital Signs: Last Vital Signs Temp 99.7 F 04/08/22 11:00 Pulse 95 04/08/22 11:00 Resp 16 04/08/22 11:00 BP 114/65 04/08/22 11:00 Pulse Ox 90 L 04/08/22 11:00 O2 Del Method 04/08/22 11:00 FiO2 50 04/08/22 11:27 BMI result Body Mass Index 58.3 Objective Data Labs CBC & Chem 7: 04/08/22 05:13 04/08/22 05:13 Labs: Laboratory Results - last 24 hr 04/07/22 04/07/22 04/07/22 12:58 12:59 14:11 WBC RBC Hgb Hct MCV MCH MCHC RDW Plt Count MPV Immature Gran % (Auto) Neut % (Auto) Lymph % (Auto) [place] % (Auto) Eos % (Auto) Baso % (Auto) Lymph # (Auto) [place] # (Auto) Eos # (Auto) Baso # (Auto) Abs Immat Gran (auto) Absolute Neuts (auto) Absolute Nucleated RBC Nucleated RBC % (auto) VBG pH 7.46 H VBG pCO2 63 VBG pO2 51 VBG HCO3 45 H VBG O2 Saturation 80.0 VBG Base Excess 18.5 Sodium Potassium Chloride Carbon Dioxide Anion Gap BUN Creatinine Estim Creat Clear Calc Estimated GFR POC Glucose 241 H Random Glucose Lactic Acid 1.1 Calcium Phosphorus Magnesium 04/07/22 04/08/22 04/08/22 17:28 01:28 05:13 WBC RBC Hgb Hct MCV MCH MCHC RDW Plt Count MPV Immature Gran % (Auto) Neut % (Auto) Lymph % (Auto) [place] % (Auto) Eos % (Auto) Baso % (Auto) Lymph # (Auto) [place] # (Auto) Eos # (Auto) Baso # (Auto) Abs Immat Gran (auto) Absolute Neuts (auto) Absolute Nucleated RBC Nucleated RBC % (auto) VBG pH VBG pCO2 VBG pO2 VBG HCO3 VBG O2 Saturation VBG Base Excess Sodium 142 Potassium 3.4 D Chloride 96 Carbon Dioxide 33 H Anion Gap 16 BUN 29 H Creatinine 0.78 Estim Creat Clear Calc 98.6 Estimated GFR > 60 POC Glucose 261 H 290 H Random Glucose 287 H Lactic Acid Calcium 8.8 Phosphorus 3.9 Magnesium 2.3 04/08/22 04/08/22 04/08/22 05:13 05:13 05:38 WBC 10.5 RBC 4.23 Hgb 11.2 L Hct 36.5 L MCV 86.3 MCH 26.5 L MCHC 30.7 L RDW 15.0 Plt Count 289 MPV 9.9 Immature Gran % (Auto) 0.3 Neut % (Auto) 88.2 H Lymph % (Auto) 7.6 L [place] % (Auto) 3.9 Eos % (Auto) 0.0 Baso % (Auto) 0.0 Lymph # (Auto) 0.8 L [place] # (Auto) 0.4 Eos # (Auto) 0.0 Baso # (Auto) 0.0 Abs Immat Gran (auto) 0.03 Absolute Neuts (auto) 9.2 H Absolute Nucleated RBC 0.000 Nucleated RBC % (auto) 0.0 VBG pH 7.43 VBG pCO2 52 VBG pO2 54 VBG HCO3 35 H VBG O2 Saturation 81.0 VBG Base Excess 10.0 Sodium Potassium Chloride Carbon Dioxide Anion Gap BUN Creatinine Estim Creat Clear Calc Estimated GFR POC Glucose 251 H Random Glucose Lactic Acid Calcium Phosphorus Magnesium 04/08/22 11:20 WBC RBC Hgb Hct MCV MCH MCHC RDW Plt Count MPV Immature Gran % (Auto) Neut % (Auto) Lymph % (Auto) [place] % (Auto) Eos % (Auto) Baso % (Auto) Lymph # (Auto) [place] # (Auto) Eos # (Auto) Baso # (Auto) Abs Immat Gran (auto) Absolute Neuts (auto) Absolute Nucleated RBC Nucleated RBC % (auto) VBG pH VBG pCO2 VBG pO2 VBG HCO3 VBG O2 Saturation VBG Base Excess Sodium Potassium Chloride Carbon Dioxide Anion Gap BUN Creatinine Estim Creat Clear Calc Estimated GFR POC Glucose 250 H Random Glucose Lactic Acid Calcium Phosphorus Magnesium Microbiology Microbiology Results: Microbiology 04/06/22 14:07 Blood - Venous Blood Culture - Final Coag negative Staphylococcus 04/06/22 14:15 Blood - Venous Blood Culture - Preliminary No growth after 24 hours. 04/07/22 Unknown Sputum - Suctioned Gram Stain - Final Quality Stroke Does the patient have a stroke diagnosis?: No VTE Prior VTE?: No VTE Risk Level:: Medical - moderate - high VTE Device Contraindication: N/A - Device Ordered VTE Drug Contraindication: N/A - Med Ordered Critical Care Time Critical Care Time (minutes): 60
[2022-04-08 11:46] LABS: VBG Base Excess 8.1 mmol/L; VBG HCO3 34 mmol/L (22-26); VBG pCO2 53 mmHg; VBG pH 7.41 (7.32-7.43); VBG pO2 58 mmHg
[2022-04-08 12:24] LABS: Venous Blood Gas Refer to POC result
[2022-04-08 16:29] LABS: Glucose, Whole Blood 256 mg/dL (60-115)
[2022-04-08 19:57] LABS: Glucose, Whole Blood 249 mg/dL (60-115)
[2022-04-08] MEDS: VerapamiL HCL 120 MG TABLET PO (19:59)
[2022-04-08] MEDS: Azithromycin 500 MG in 0.9 % Sodium Chloride 250 ML 125 MG IV (20:02)
[2022-04-08] MEDS: Insulin Glargine,Hum.rec.anlog 100 UNIT/ML 10 ML VIAL 15 UNIT SUBCUT (20:05)
[2022-04-08 20:09] LABS: Venous Blood Gas Refer to POC result
[2022-04-08 20:10] LABS: VBG Base Excess 5.9 mmol/L; VBG HCO3 31 mmol/L (22-26); VBG pCO2 48 mmHg; VBG pH 7.41 (7.32-7.43); VBG pO2 65 mmHg
[2022-04-09] VITALS (31 sets, daily range): BP systolic 112–152; BP diastolic 69–98; PULSE 82–111; RESP 7–29; TEMP 36.1–37.4; O2SAT 91–98; BMI 58.1
[2022-04-09] MEDS: acetaZOLAMIDE sodium 500 MG VIAL IVPUSH ×2 (01:08→08:32)
[2022-04-09] MEDS: Albuterol/Iprat 2.5/0.5MG 3 ML AMPUL.NEB INHALE ×4 (01:37→20:44)
[2022-04-09] MEDS: methylPREDNISolone Sod Succ 125 MG/2 ML VIAL 60 MG IVPUSH (04:57)
[2022-04-09 04:59] LABS: Basophils Percent Auto 0.1 % (0-2); Hematocrit 36.3 % (37.0-47.0); Hemoglobin 11.3 g/dl (12.0-16.0); Imm Gran Abs Auto 0.05 X10*3/uL (0.00-0.03); Imm Gran Pct Auto 0.5 % (0.0-0.4); Lymphocytes Absolute Auto 0.4 X10*3/uL (1.2-4.9); Lymphocytes Percent Auto 3.9 % (20-40); MANUAL DIFF FLAG SCAN; Mean Corpuscular HGB Conc 31.1 g/dl (31.0-35.0); Mean Corpuscular Volume 86.6 fL (80.0-98.0); Mean Platelet Volume 9.7 fL (9.4-12.3); Monocytes Absolute Auto 0.4 X10*3/uL (0.1-1.2); Monocytes Percent Auto 3.5 % (2-11); Neutrophils Absolute Auto 9.3 x10*3/uL (2.0-8.3); Platelet Count 282 X10*3/uL (160-400); Red Blood Count 4.19 X10*6/uL (4.20-5.50); Red Cell Distribution Width 15.1 % (11.0-16.0); SCAN SMEAR FLAG 1; White Blood Count 10.1 X10*3/uL (4.8-10.8)
[2022-04-09 05:00] LABS: Venous Blood Gas Refer to POC result
[2022-04-09 05:01] LABS: VBG Base Excess 2.2 mmol/L; VBG HCO3 27 mmol/L (22-26); VBG pCO2 45 mmHg; VBG pH 7.38 (7.32-7.43); VBG pO2 70 mmHg
[2022-04-09 05:16] LABS: SLIDE REVIEW VERIFIED
[2022-04-09 05:23] LABS: Albumin Level 3.8 g/dL (3.5-5.0); Anion Gap 16 (12-20); Blood Urea Nitrogen 35 mg/dL (9-16); Calcium 8.7 mg/dL (8.4-10.2); Carbon Dioxide 27 mmol/L (22-29); Chloride 103 mmol/L (96-108); Estimated Glomerular Filt Rate > 60; Glucose Random 303 mg/dL (60-115); Magnesium 2.3 mg/dL (1.6-2.6); Potassium 3.8 mmol/L (3.3-5.1); Sodium 142 mmol/L (135-145)
[2022-04-09 07:32] LABS: Glucose, Whole Blood 252 mg/dL (60-115)
[2022-04-09] MEDS: Insulin Lispro 100 UNIT/ML 3 ML VIAL SUBCUT ×4 (08:31→20:18)
[2022-04-09] MEDS: Enoxaparin Sodium 40 MG/0.4 ML SYRINGE SUBCUT ×2 (08:32→20:18)
[2022-04-09] MEDS: VerapamiL HCL 120 MG TABLET PO ×2 (08:32→20:18)
[2022-04-09] MEDS: Insulin Glargine,Hum.rec.anlog 100 UNIT/ML 10 ML VIAL 15 UNIT SUBCUT ×2 (08:32→20:19)
[2022-04-09] MEDS: acetaZOLAMIDE 250 MG TABLET PO (09:34)
[2022-04-09] MEDS: metFORMIN HCl 500 MG TABLET PO ×2 (09:34→16:53)
[2022-04-09] MEDS: lisinopriL 10 MG TABLET PO (09:34)
[2022-04-09] MEDS: Spironolactone 25 MG TABLET PO (09:34)
[2022-04-09] MEDS: predniSONE 20 MG TABLET 40 MG PO (09:34)
[2022-04-09] MEDS: Docusate Sodium 100 MG CAPSULE PO ×2 (09:35→20:18)
[2022-04-09 11:37] LABS: Glucose, Whole Blood 345 mg/dL (60-115)
--- NOTE | 2022-04-09 12:35 | PM.CCPN ---
Subjective Subjective Date of Service: 04/09/22 Interval History: 61-year-old obese female with acute on chronic hypercapnic and hypoxic respiratory failure with underlying COPD as well as obesity / hypoventilation and obstructive sleep apnea in even here was noted upon falling asleep to become apneic with oxygen saturations dropping into the low 70s requiring p.r.n. use of BiPAP the no for sleep at least at this point and no longer a rescue issue as she has gotten over the status asthmaticus that she presented with because of aggressive bronchodilator and steroid therapy no apparent signs of infection but she has been empirically on Zithromax only and today we are really adding not just systemic steroid but inhaled steroid along with continued inhaler therapy and p.r.n. use of of BiPAP this time around as opposed to previous occasions she did not have a BNP or troponin rise previous occasion she had which could indicate that she might have underlying coronary disease but no manifestations of acute ischemia nor diastolic CHF on this occasion chest x-ray definitely shows no evidence of infiltrate nor in the interstitial edema and ECGs have been negative along with negative troponins for ischemia Critical Care Time (minutes): 35 Physical Exam Vital Signs: Vital Signs: Last Vital Signs Temp 97.9 F 04/09/22 08:00 Pulse 105 H 04/09/22 11:00 Resp 29 H 04/09/22 11:00 BP 150/92 H 04/09/22 11:00 Pulse Ox 96 04/09/22 11:00 O2 Del Method 04/09/22 11:00 O2 Flow Rate 2 04/09/22 09:00 FiO2 40 04/09/22 11:00 BMI result Body Mass Index 58.1 no acute distress and alert an oriented and nonfocal abdomen benign no again a megaly bedside echo with concentric left ventricular hypertrophy normal LV systolic function and no primary valve or pericardial disease lungs without accessory muscle use no adventitious sounds Objective Data Labs CBC & Chem 7: 04/09/22 04:50 04/09/22 04:51 Labs: Laboratory Results - last 24 hr 04/08/22 04/08/22 04/08/22 16:26 19:53 20:05 WBC RBC Hgb Hct MCV MCH MCHC RDW Plt Count MPV Immature Gran % (Auto) Neut % (Auto) Lymph % (Auto) [place] % (Auto) Eos % (Auto) Baso % (Auto) Lymph # (Auto) [place] # (Auto) Eos # (Auto) Baso # (Auto) Abs Immat Gran (auto) Absolute Neuts (auto) Absolute Nucleated RBC Nucleated RBC % (auto) Smear Tech's Comments VBG pH 7.41 VBG pCO2 48 VBG pO2 65 VBG HCO3 31 H VBG O2 Saturation 90.0 VBG Base Excess 5.9 Sodium Potassium Chloride Carbon Dioxide Anion Gap BUN Creatinine Estim Creat Clear Calc Estimated GFR POC Glucose 256 H 249 H Random Glucose Calcium Phosphorus Magnesium Albumin 04/09/22 04/09/22 04/09/22 04:50 04:51 04:56 WBC 10.1 RBC 4.19 L Hgb 11.3 L Hct 36.3 L MCV 86.6 MCH 27.0 MCHC 31.1 RDW 15.1 Plt Count 282 MPV 9.7 Immature Gran % (Auto) 0.5 H Neut % (Auto) 92.0 H Lymph % (Auto) 3.9 L [place] % (Auto) 3.5 Eos % (Auto) 0.0 Baso % (Auto) 0.1 Lymph # (Auto) 0.4 L [place] # (Auto) 0.4 Eos # (Auto) 0.0 Baso # (Auto) 0.0 Abs Immat Gran (auto) 0.05 H Absolute Neuts (auto) 9.3 H Absolute Nucleated RBC 0.000 Nucleated RBC % (auto) 0.0 Smear Tech's Comments VERIFIED VBG pH 7.38 VBG pCO2 45 VBG pO2 70 VBG HCO3 27 H VBG O2 Saturation 93.0 VBG Base Excess 2.2 Sodium 142 Potassium 3.8 Chloride 103 Carbon Dioxide 27 Anion Gap 16 BUN 35 H Creatinine 0.76 Estim Creat Clear Calc 101.0 Estimated GFR > 60 POC Glucose Random Glucose 303 H Calcium 8.7 Phosphorus 4.0 Magnesium 2.3 Albumin 3.8 04/09/22 04/09/22 07:21 11:33 WBC RBC Hgb Hct MCV MCH MCHC RDW Plt Count MPV Immature Gran % (Auto) Neut % (Auto) Lymph % (Auto) [place] % (Auto) Eos % (Auto) Baso % (Auto) Lymph # (Auto) [place] # (Auto) Eos # (Auto) Baso # (Auto) Abs Immat Gran (auto) Absolute Neuts (auto) Absolute Nucleated RBC Nucleated RBC % (auto) Smear Tech's Comments VBG pH VBG pCO2 VBG pO2 VBG HCO3 VBG O2 Saturation VBG Base Excess Sodium Potassium Chloride Carbon Dioxide Anion Gap BUN Creatinine Estim Creat Clear Calc Estimated GFR POC Glucose 252 H 345 H Random Glucose Calcium Phosphorus Magnesium Albumin Microbiology Microbiology Results: Microbiology 04/07/22 Unknown Sputum - Suctioned Gram Stain - Final 04/07/22 Unknown Sputum - Suctioned Sputum Culture - Final 04/06/22 14:15 Blood - Venous Blood Culture - Preliminary No growth after 48 hours. 04/06/22 14:07 Blood - Venous Blood Culture - Final Coag negative Staphylococcus Progress Note: A&P Assessment and plan (1) Respiratory failure: Status: Acute (2) Acidosis, lactic: Status: Acute (3) Leukocytosis: Status: Acute (4) Hypoxia: Status: Acute (5) Dyspnea on exertion: Status: Acute (6) Mixed incontinence urge and stress: Status: Acute (7) Morbid obesity: Status: Acute (8) Hospital discharge follow-up: Status: Acute (9) Congestive heart failure: Status: Acute (10) Obesity hypoventilation syndrome: Status: Acute (11) Hospital discharge follow-up: Status: Acute (12) Essential hypertension: Status: Acute (13) Chronic hypercapnic respiratory failure: Status: Acute (14) Oxygen dependent: Status: Acute (15) Redness of left eye: Status: Acute Plan 61-year-old obese female with obstructive sleep apnea and COPD and obesity hypoventilation now no longer requiring around the clock BiPAP as she is over the status asthmaticus and she is well compensated with comfortable end-tidal CO2 is which for her normally are in the mid 60s and utilizing the BiPAP went for sleep whether it is a nap during the day or or sleep at night and if this represents a stable issue will consider transfer to [facility] Quality Stroke Does the patient have a stroke diagnosis?: No VTE Prior VTE?: No VTE Risk Level:: Medical - moderate - high VTE Device Contraindication: N/A - Device Ordered VTE Drug Contraindication: N/A - Med Ordered
--- NOTE | 2022-04-09 14:16 | MHC.CM.PN ---
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 BARBADIAN SPEAKING. LIVES IN AN APARTMENT WITH HER SPOUSE. 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 USED TO HAVE VNA BUT NO LONGER, UNABLE TO RECALL AGENCY. USES 02 AND BI PAP AT HOME, [employer] IS THE VENDOR. USES A WALKER. NO HCP ON FILE, DECLINES TO DO ONE AT THIS TIME. COVID VAX X2 .PCP DR. ALFREDO MACKAY AT [facility] [place]. DP: SPOUSE WILL TRANSPORT AT DC. CM WILL CONTINUE TO FOLLOW FOR DC NEEDS.
[2022-04-09 16:42] LABS: Glucose, Whole Blood 298 mg/dL (60-115)
[2022-04-09 20:15] LABS: Glucose, Whole Blood 248 mg/dL (60-115)
[2022-04-09] MEDS: Azithromycin 500 MG in 0.9 % Sodium Chloride 250 ML 125 MG IV (20:19)
[2022-04-09] MEDS: Fluticasone Propionate 250 MCG BLST.W.DEV 1 PUFF INHALE (20:44)
[2022-04-10] VITALS (30 sets, daily range): BP systolic 110–141; BP diastolic 45–90; PULSE 82–105; RESP 10–22; TEMP 35.9–37.2; O2SAT 88–97; BMI 58.3
[2022-04-10] MEDS: Albuterol/Iprat 2.5/0.5MG 3 ML AMPUL.NEB INHALE (03:30)
[2022-04-10 05:29] LABS: VBG Base Excess 6.3 mmol/L; VBG HCO3 33 mmol/L (22-26); VBG pCO2 63 mmHg; VBG pH 7.33 (7.32-7.43); VBG pO2 50 mmHg
[2022-04-10 05:37] LABS: MANUAL DIFF FLAG NO
[2022-04-10 05:58] LABS: Basophils Percent Auto 0.1 % (0-2); Hemoglobin 11.1 g/dl (12.0-16.0); Imm Gran Abs Auto 0.03 X10*3/uL (0.00-0.03); Imm Gran Pct Auto 0.3 % (0.0-0.4); Lymphocytes Absolute Auto 1.4 X10*3/uL (1.2-4.9); Lymphocytes Percent Auto 14.5 % (20-40); Mean Corpuscular HGB Conc 30.8 g/dl (31.0-35.0); Mean Corpuscular Hemoglobin 27.1 pg (27.0-33.0); Mean Corpuscular Volume 87.8 fL (80.0-98.0); Mean Platelet Volume 10.3 fL (9.4-12.3); Monocytes Absolute Auto 0.9 X10*3/uL (0.1-1.2); Monocytes Percent Auto 9.7 % (2-11); Neutrophils Absolute Auto 7.3 x10*3/uL (2.0-8.3); Neutrophils Percent Auto 75.4 % (45-73); Platelet Count 288 X10*3/uL (160-400); Red Cell Distribution Width 14.8 % (11.0-16.0); White Blood Count 9.6 X10*3/uL (4.8-10.8)
[2022-04-10 05:59] LABS: Alanine Aminotransferase 29 U/L (0-31); Albumin Level 3.5 g/dL (3.5-5.0); Alkaline Phosphatase 61 U/L (39-117); Anion Gap 13 (12-20); Aspartate Amino Transferase 16 U/L (5-31); Bilirubin Total < 0.2 mg/dL (0.0-1.0); Blood Urea Nitrogen 36 mg/dL (9-16); Carbon Dioxide 31 mmol/L (22-29); Chloride 105 mmol/L (96-108); Creatinine Clr Calc Pharmacy 113.1; Estimated Glomerular Filt Rate > 60; Glucose Random 149 mg/dL (60-115); Magnesium 2.2 mg/dL (1.6-2.6); Phosphorus 3.2 mg/dL (2.7-4.5); Potassium 3.8 mmol/L (3.3-5.1); Sodium 145 mmol/L (135-145); Total Protein 6.2 g/dL (6.5-8.0)
[2022-04-10 07:26] LABS: Glucose, Whole Blood 127 mg/dL (60-115)
--- NOTE | 2022-04-10 08:21 | MHC.CDI.CONC ---
CDI Concurrent Query Documentation Clarification: PHYSICIAN'S DOCUMENTATION REQUEST Date of Query: 04/10/22 0821 Patient Name: Ashleigh Keenan Admit Date: 04/06/22 Dear Doctor, A review of the medical record indicates additional documentation may be needed. Please review below and update the documentation accordingly. Clinical Indicators: Risk Factors/Clinical Indicators/Treatments PN ICU 04/09 - She did not have a BNP or troponin rise previous occasion, which could indicate she might have coronary disease but no manifestations of acute ischemia nor diastolic CHF on this occasion. Please provide further specificity regarding the most likely type and acuity of CHF you are evaluating, treating, or monitoring. Examples include: Clarity of documentation within the medical record: Type: Systolic Diastolic Combined Systolic/Diastolic Other ? please specify Unable to determine Acuity: Chronic Acute on chronic Unable to determine Use of terms such as suspected, likely, concern for, or probable (associated with a specific diagnosis that is being evaluated, monitored, or treated as if it exists) are acceptable and can be coded in the inpatient setting, when documented at the time of discharge. Thank you, Ashley Cabrera [facility], CDIS Extension: [phone] Please use your independent medical judgment in providing your response. THIS QUERY IS PART OF THE PERMANENT MEDICAL RECORD Provider Response: Other Other Diagnosis: chronic diastolic chf
[2022-04-10] MEDS: Enoxaparin Sodium 40 MG/0.4 ML SYRINGE SUBCUT ×2 (08:23→20:16)
[2022-04-10] MEDS: Insulin Glargine,Hum.rec.anlog 100 UNIT/ML 10 ML VIAL 15 UNIT SUBCUT ×2 (08:23→20:16)
[2022-04-10] MEDS: Fluticasone Propionate 250 MCG BLST.W.DEV 1 PUFF INHALE ×2 (08:23→19:58)
[2022-04-10] MEDS: Docusate Sodium 100 MG CAPSULE PO ×2 (08:24→20:16)
[2022-04-10] MEDS: predniSONE 20 MG TABLET 40 MG PO (08:24)
[2022-04-10] MEDS: VerapamiL HCL 120 MG TABLET PO ×2 (08:24→20:16)
[2022-04-10] MEDS: metFORMIN HCl 500 MG TABLET PO ×2 (08:24→16:47)
[2022-04-10] MEDS: lisinopriL 10 MG TABLET PO (08:24)
[2022-04-10] MEDS: Spironolactone 25 MG TABLET PO (08:24)
[2022-04-10] MEDS: acetaZOLAMIDE 250 MG TABLET PO (08:25)
[2022-04-10 08:32] LABS: Venous Blood Gas Refer to POC result
[2022-04-10] MEDS: Albuterol Sulfate (0.083%) 2.5 MG/3 ML VIAL.NEB INHALE (09:36)
[2022-04-10 11:24] LABS: Glucose, Whole Blood 230 mg/dL (60-115)
[2022-04-10] MEDS: Insulin Lispro 100 UNIT/ML 3 ML VIAL SUBCUT ×3 (11:42→20:17)
[2022-04-10 12:21] LABS: Venous Blood Gas Refer to POC result
[2022-04-10 12:21] LABS: VBG Base Excess 3.2 mmol/L; VBG HCO3 32 mmol/L (22-26); VBG pCO2 68 mmHg; VBG pH 7.27 (7.32-7.43); VBG pO2 71 mmHg
[2022-04-10 16:32] LABS: Glucose, Whole Blood 293 mg/dL (60-115)
--- NOTE | 2022-04-10 18:22 | P.PNCC_ITS ---
Subjective Subjective Date of Service: 04/10/22 Interval History: 61-year-old obese female with COPD and clear-cut obstructive sleep apnea with marked oxygen desaturation and prolonged apneic periods when sleeping as well as obesity hypoventilation presenting with acute on chronic hypercarbic and hypoxic respiratory failure without infectious etiology not by physical exam lab work and not by CT scan which showed no evidence of infiltrate Content continued bronchospasm but no longer in status asthmaticus definitely much less respiratory effort without accessory muscle use and without diaphragmatic expiratory effort After several hours of nasal cannula today she only peak her pCO2 at 68 which is pretty much her chronic state of affairs but pH was 7.27 because her secondary metabolic alkalosis was washed out by CT Pramod might She remains just on symptomatic treatment with bronchodilators long and short- acting as well as inhaled steroids and systemic steroids Critical Care Time (minutes): 45 Physical Exam Vital Signs: Vital Signs: Last Vital Signs Temp 98.9 F 04/10/22 12:00 Pulse 103 H 04/10/22 18:18 Resp 10 L 04/10/22 18:18 BP 126/77 04/10/22 18:18 Pulse Ox 95 04/10/22 18:18 O2 Del Method 04/10/22 18:18 O2 Flow Rate 3 04/10/22 18:18 FiO2 28 04/10/22 08:00 BMI result Body Mass Index 58.3 Stable without accessory muscle use or respiratory distress Bedside echo with preserved LV function Abdomen benign with no again a megaly No peripheral edema Awake alert nonfocal neurologically Objective Data Labs CBC & Chem 7: 04/10/22 05:16 04/10/22 05:16 Labs: Laboratory Results - last 24 hr 04/09/22 04/10/22 04/10/22 20:12 05:16 05:16 WBC 9.6 RBC 4.10 L Hgb 11.1 L Hct 36.0 L MCV 87.8 MCH 27.1 MCHC 30.8 L RDW 14.8 Plt Count 288 MPV 10.3 Immature Gran % (Auto) 0.3 Neut % (Auto) 75.4 H Lymph % (Auto) 14.5 L [place] % (Auto) 9.7 Eos % (Auto) 0.0 Baso % (Auto) 0.1 Lymph # (Auto) 1.4 [place] # (Auto) 0.9 Eos # (Auto) 0.0 Baso # (Auto) 0.0 Abs Immat Gran (auto) 0.03 Absolute Neuts (auto) 7.3 Absolute Nucleated RBC 0.000 Nucleated RBC % (auto) 0.0 VBG pH VBG pCO2 VBG pO2 VBG HCO3 VBG O2 Saturation VBG Base Excess Sodium 145 Potassium 3.8 Chloride 105 Carbon Dioxide 31 H Anion Gap 13 BUN 36 H Creatinine 0.68 Estim Creat Clear Calc 113.1 Estimated GFR > 60 POC Glucose 248 H Random Glucose 149 H Calcium 9.0 Phosphorus 3.2 Magnesium 2.2 Total Bilirubin < 0.2 AST 16 ALT 29 Alkaline Phosphatase 61 D Total Protein 6.2 L Albumin 3.5 04/10/22 04/10/22 04/10/22 05:22 07:20 11:14 WBC RBC Hgb Hct MCV MCH MCHC RDW Plt Count MPV Immature Gran % (Auto) Neut % (Auto) Lymph % (Auto) [place] % (Auto) Eos % (Auto) Baso % (Auto) Lymph # (Auto) [place] # (Auto) Eos # (Auto) Baso # (Auto) Abs Immat Gran (auto) Absolute Neuts (auto) Absolute Nucleated RBC Nucleated RBC % (auto) VBG pH 7.33 VBG pCO2 63 VBG pO2 50 VBG HCO3 33 H VBG O2 Saturation 76.0 VBG Base Excess 6.3 Sodium Potassium Chloride Carbon Dioxide Anion Gap BUN Creatinine Estim Creat Clear Calc Estimated GFR POC Glucose 127 H 230 H Random Glucose Calcium Phosphorus Magnesium Total Bilirubin AST ALT Alkaline Phosphatase Total Protein Albumin 04/10/22 04/10/22 12:13 16:28 WBC RBC Hgb Hct MCV MCH MCHC RDW Plt Count MPV Immature Gran % (Auto) Neut % (Auto) Lymph % (Auto) [place] % (Auto) Eos % (Auto) Baso % (Auto) Lymph # (Auto) [place] # (Auto) Eos # (Auto) Baso # (Auto) Abs Immat Gran (auto) Absolute Neuts (auto) Absolute Nucleated RBC Nucleated RBC % (auto) VBG pH 7.27 L VBG pCO2 68 VBG pO2 71 VBG HCO3 32 H VBG O2 Saturation 90.0 VBG Base Excess 3.2 Sodium Potassium Chloride Carbon Dioxide Anion Gap BUN Creatinine Estim Creat Clear Calc Estimated GFR POC Glucose 293 H Random Glucose Calcium Phosphorus Magnesium Total Bilirubin AST ALT Alkaline Phosphatase Total Protein Albumin Microbiology Microbiology Results: Microbiology 04/07/22 Unknown Sputum - Suctioned Gram Stain - Final 04/07/22 Unknown Sputum - Suctioned Sputum Culture - Final 04/06/22 14:15 Blood - Venous Blood Culture - Preliminary No growth after 48 hours. 04/06/22 14:07 Blood - Venous Blood Culture - Final Coag negative Staphylococcus Progress Note: A&P Assessment and plan (1) Respiratory failure: Status: Acute (2) Acidosis, lactic: Status: Acute (3) Leukocytosis: Status: Acute (4) Hypoxia: Status: Acute (5) Mixed incontinence urge and stress: Status: Acute (6) Morbid obesity: Status: Acute (7) Congestive heart failure: Status: Acute (8) Obesity hypoventilation syndrome: Status: Acute (9) Oxygen dependent: Status: Acute (10) Chronic hypercapnic respiratory failure: Status: Acute (11) Essential hypertension: Status: Acute (12) Obstructive sleep apnea: Status: Acute Plan Continue BiPAP support when sleeping but daytime use of nasal cannula and would continue with both inhaled steroid and long-acting bronchodilator as well as p.r.n. short-acting bronchodilator and will assess for step-down qualification sin the morning Quality Stroke Does the patient have a stroke diagnosis?: No VTE Prior VTE?: No VTE Risk Level:: Medical - moderate - high VTE Device Contraindication: N/A - Device Ordered VTE Drug Contraindication: N/A - Med Ordered
[2022-04-10] MEDS: Salmeterol Xinafoate 50 MCG BLST.W.DEV 1 PUFF INHALE (19:58)
[2022-04-10 20:05] LABS: Glucose, Whole Blood 251 mg/dL (60-115)
[2022-04-10] MEDS: Azithromycin 500 MG in 0.9 % Sodium Chloride 250 ML 125 MG IV (21:09)
[2022-04-11] VITALS (31 sets, daily range): BP systolic 102–135; BP diastolic 61–93; PULSE 78–101; RESP 8–21; TEMP 36.2–37; O2SAT 89–99; BMI 58.0
[2022-04-11 04:08] LABS: VBG Base Excess 8.2 mmol/L; VBG HCO3 36 mmol/L (22-26); VBG pCO2 74 mmHg; VBG pO2 57 mmHg
[2022-04-11 04:11] LABS: MANUAL DIFF FLAG NO
[2022-04-11 04:19] LABS: Basophils Percent Auto 0.1 % (0-2); Eosinophils Percent Auto 0.1 % (0-4); Hematocrit 35.9 % (37.0-47.0); Hemoglobin 10.6 g/dl (12.0-16.0); Imm Gran Abs Auto 0.03 X10*3/uL (0.00-0.03); Imm Gran Pct Auto 0.3 % (0.0-0.4); Lymphocytes Absolute Auto 1.9 X10*3/uL (1.2-4.9); Mean Corpuscular HGB Conc 29.5 g/dl (31.0-35.0); Mean Corpuscular Hemoglobin 26.3 pg (27.0-33.0); Mean Corpuscular Volume 89.1 fL (80.0-98.0); Monocytes Absolute Auto 0.8 X10*3/uL (0.1-1.2); Monocytes Percent Auto 8.7 % (2-11); Neutrophils Absolute Auto 6.7 x10*3/uL (2.0-8.3); Neutrophils Percent Auto 70.8 % (45-73); Platelet Count 257 X10*3/uL (160-400); Red Blood Count 4.03 X10*6/uL (4.20-5.50); Red Cell Distribution Width 14.6 % (11.0-16.0); White Blood Count 9.4 X10*3/uL (4.8-10.8)
[2022-04-11 04:40] LABS: Alanine Aminotransferase 30 U/L (0-31); Albumin Level 3.3 g/dL (3.5-5.0); Alkaline Phosphatase 68 U/L (39-117); Anion Gap 13 (12-20); Aspartate Amino Transferase 14 U/L (5-31); Bilirubin Total < 0.2 mg/dL (0.0-1.0); Blood Urea Nitrogen 25 mg/dL (9-16); Calcium 8.6 mg/dL (8.4-10.2); Carbon Dioxide 32 mmol/L (22-29); Chloride 105 mmol/L (96-108); Estimated Glomerular Filt Rate > 60; Glucose Random 161 mg/dL (60-115); Potassium 3.9 mmol/L (3.3-5.1); Sodium 146 mmol/L (135-145); Total Protein 5.7 g/dL (6.5-8.0)
--- NOTE | 2022-04-11 06:03 | PC.NURSE ---
[id number]: PATIENT ON 3L NC AND TOLERATING WELL, PLACED ON BIPAP RATE 12 15/8 ON 28% AT 2100 AND CURRENTLY STILL ON IT WHILE SLEEPING INCONTINENT OF SMALL, PASTY BM THIS AM BATH GIVEN, BARRIER CREAM APPLIED, Q2HR REPO WITH PREVALON SYSTEM, PILLOWS, WEDGES AND TURNING BED UTILIZED
[2022-04-11 06:18] LABS: Venous Blood Gas Refer to POC result
[2022-04-11 07:18] LABS: Glucose, Whole Blood 109 mg/dL (60-115)
[2022-04-11] MEDS: predniSONE 20 MG TABLET 40 MG PO (07:47)
[2022-04-11] MEDS: Enoxaparin Sodium 40 MG/0.4 ML SYRINGE SUBCUT ×2 (07:47→21:11)
[2022-04-11] MEDS: Insulin Glargine,Hum.rec.anlog 100 UNIT/ML 10 ML VIAL 15 UNIT SUBCUT ×2 (07:47→21:10)
[2022-04-11] MEDS: metFORMIN HCl 500 MG TABLET PO ×2 (07:48→16:20)
[2022-04-11] MEDS: acetaZOLAMIDE 250 MG TABLET PO (07:48)
[2022-04-11] MEDS: lisinopriL 10 MG TABLET PO (07:48)
[2022-04-11] MEDS: Docusate Sodium 100 MG CAPSULE PO ×2 (07:48→21:12)
[2022-04-11] MEDS: Spironolactone 25 MG TABLET PO (07:48)
[2022-04-11] MEDS: VerapamiL HCL 120 MG TABLET PO ×2 (07:48→21:12)
[2022-04-11] MEDS: Fluticasone Propionate 250 MCG BLST.W.DEV 1 PUFF INHALE ×2 (08:11→19:17)
[2022-04-11] MEDS: Salmeterol Xinafoate 50 MCG BLST.W.DEV 1 PUFF INHALE ×2 (08:11→19:17)
[2022-04-11 10:08] LABS: VBG Base Excess 9.5 mmol/L; VBG HCO3 39 mmol/L (22-26); VBG pCO2 79 mmHg; VBG pH 7.29 (7.32-7.43); VBG pO2 61 mmHg
[2022-04-11 10:15] LABS: Venous Blood Gas Refer to POC result
[2022-04-11 11:20] LABS: Glucose, Whole Blood 206 mg/dL (60-115)
--- NOTE | 2022-04-11 12:00 | MHC.CM.PN ---
EMR REVIEWED, NO CHANGE TO CM PLAN AT THIS TIME. WILL CONTINUE TO FOLLOW FOR D/C PLANNING NEEDS APPROPRIATE.
[2022-04-11] MEDS: Insulin Lispro 100 UNIT/ML 3 ML VIAL SUBCUT ×2 (12:49→16:20)
[2022-04-11 13:11] LABS: Venous Blood Gas Refer to POC result
[2022-04-11 13:11] LABS: VBG Base Excess 9.3 mmol/L; VBG HCO3 38 mmol/L (22-26); VBG pCO2 76 mmHg; VBG pO2 74 mmHg
[2022-04-11 14:26] LABS: VBG Base Excess 6.2 mmol/L; VBG HCO3 34 mmol/L (22-26); VBG pCO2 66 mmHg; VBG pH 7.31 (7.32-7.43); VBG pO2 72 mmHg
[2022-04-11 14:26] LABS: Venous Blood Gas Refer to POC result
--- NOTE | 2022-04-11 14:48 | PM.CCPN ---
Subjective Subjective Date of Service: 04/11/22 Interval History: 61-year-old massively obese female with obesity/hypoventilation and obstructive sleep apnea witnessed periods of apnea while on nasal cannula oxygen with drops in oxygen saturation to the low 70s but currently utilizes BiPAP mechanism at modest pressures for in nocturnal use and p.r.n. but right now daytime maintenance has a good working mechanism with nasal high-flow at about 50 liters/minute currently and with that she has got respiratory comfort with no accessory muscle use B and pCO2 trended significantly downward from where she had been on the nasal cannula which was in the high end creeping higher 70s currently down to a pCO2 of 66 with significant comfort able to eat 3 meals a day with comfort talks with long sentences and paragraphs all day on the telephone when she is awake so this is much improved over her admission status when she had status asthmaticus related to asthmatic bronchitis She is a obese type 2 diabetic and hypertensive currently on oral prednisone at 40 mg probably a very slow taper over the next 2 weeks and never had evidence [address] scan of her chest of infiltrate or lower respiratory tract disease She may or may not have had an element of diastolic CHF very subtle issue but she is on maintenance diuretics consisting of small dose oral a seated Solu might with oral spironolactone with very well maintained electrolytes as well as even intake and output so clinically euvolemic Critical Care Time (minutes): 45 Physical Exam Vital Signs: Vital Signs: Last Vital Signs Temp 98.6 F 04/11/22 12:00 Pulse 96 04/11/22 14:00 Resp 12 04/11/22 14:00 BP 127/78 04/11/22 14:00 Pulse Ox 93 04/11/22 14:00 O2 Del Method 04/11/22 14:00 O2 Flow Rate 50 04/11/22 14:00 FiO2 30 04/11/22 14:00 Oxygen Flow Rate 28 04/11/22 08:00 BMI result Body Mass Index 58.0 No distress comfortable respiratory rate no accessory muscle or diaphragmatic effort Neurologically intact Cardiac exam by bedside echo with class 1 LV function Abdomen without organomegaly Chest with bilaterally diminished breath sounds no adventitious sounds Objective Data Labs CBC & Chem 7: 04/11/22 03:59 04/11/22 03:59 Labs: Laboratory Results - last 24 hr 04/10/22 04/10/22 04/11/22 16:28 20:03 03:59 WBC 9.4 RBC 4.03 L Hgb 10.6 L Hct 35.9 L MCV 89.1 MCH 26.3 L MCHC 29.5 L RDW 14.6 Plt Count 257 MPV 10.0 Immature Gran % (Auto) 0.3 Neut % (Auto) 70.8 Lymph % (Auto) 20.0 [place] % (Auto) 8.7 Eos % (Auto) 0.1 Baso % (Auto) 0.1 Lymph # (Auto) 1.9 [place] # (Auto) 0.8 Eos # (Auto) 0.0 Baso # (Auto) 0.0 Abs Immat Gran (auto) 0.03 Absolute Neuts (auto) 6.7 Absolute Nucleated RBC 0.000 Nucleated RBC % (auto) 0.0 VBG pH VBG pCO2 VBG pO2 VBG HCO3 VBG O2 Saturation VBG Base Excess Sodium Potassium Chloride Carbon Dioxide Anion Gap BUN Creatinine Estim Creat Clear Calc Estimated GFR POC Glucose 293 H 251 H Random Glucose Calcium Phosphorus Magnesium Total Bilirubin AST ALT Alkaline Phosphatase Total Protein Albumin 04/11/22 04/11/22 04/11/22 03:59 04:03 07:13 WBC RBC Hgb Hct MCV MCH MCHC RDW Plt Count MPV Immature Gran % (Auto) Neut % (Auto) Lymph % (Auto) [place] % (Auto) Eos % (Auto) Baso % (Auto) Lymph # (Auto) [place] # (Auto) Eos # (Auto) Baso # (Auto) Abs Immat Gran (auto) Absolute Neuts (auto) Absolute Nucleated RBC Nucleated RBC % (auto) VBG pH 7.30 L VBG pCO2 74 VBG pO2 57 VBG HCO3 36 H VBG O2 Saturation 83.0 VBG Base Excess 8.2 Sodium 146 H Potassium 3.9 Chloride 105 Carbon Dioxide 32 H Anion Gap 13 BUN 25 H Creatinine 0.62 Estim Creat Clear Calc 124.0 Estimated GFR > 60 POC Glucose 109 Random Glucose 161 H Calcium 8.6 Phosphorus 4.0 Magnesium 2.0 Total Bilirubin < 0.2 AST 14 ALT 30 Alkaline Phosphatase 68 Total Protein 5.7 L Albumin 3.3 L 04/11/22 04/11/22 04/11/22 10:02 11:14 13:04 WBC RBC Hgb Hct MCV MCH MCHC RDW Plt Count MPV Immature Gran % (Auto) Neut % (Auto) Lymph % (Auto) [place] % (Auto) Eos % (Auto) Baso % (Auto) Lymph # (Auto) [place] # (Auto) Eos # (Auto) Baso # (Auto) Abs Immat Gran (auto) Absolute Neuts (auto) Absolute Nucleated RBC Nucleated RBC % (auto) VBG pH 7.29 L 7.30 L VBG pCO2 79 76 VBG pO2 61 74 VBG HCO3 39 H 38 H VBG O2 Saturation 86.0 94.0 VBG Base Excess 9.5 9.3 Sodium Potassium Chloride Carbon Dioxide Anion Gap BUN Creatinine Estim Creat Clear Calc Estimated GFR POC Glucose 206 H Random Glucose Calcium Phosphorus Magnesium Total Bilirubin AST ALT Alkaline Phosphatase Total Protein Albumin 04/11/22 14:19 WBC RBC Hgb Hct MCV MCH MCHC RDW Plt Count MPV Immature Gran % (Auto) Neut % (Auto) Lymph % (Auto) [place] % (Auto) Eos % (Auto) Baso % (Auto) Lymph # (Auto) [place] # (Auto) Eos # (Auto) Baso # (Auto) Abs Immat Gran (auto) Absolute Neuts (auto) Absolute Nucleated RBC Nucleated RBC % (auto) VBG pH 7.31 L VBG pCO2 66 VBG pO2 72 VBG HCO3 34 H VBG O2 Saturation 93.0 VBG Base Excess 6.2 Sodium Potassium Chloride Carbon Dioxide Anion Gap BUN Creatinine Estim Creat Clear Calc Estimated GFR POC Glucose Random Glucose Calcium Phosphorus Magnesium Total Bilirubin AST ALT Alkaline Phosphatase Total Protein Albumin Microbiology Microbiology Results: Microbiology 04/07/22 Unknown Sputum - Suctioned Gram Stain - Final 04/07/22 Unknown Sputum - Suctioned Sputum Culture - Final 04/06/22 14:15 Blood - Venous Blood Culture - Preliminary No growth after 48 hours. 04/06/22 14:07 Blood - Venous Blood Culture - Final Coag negative Staphylococcus Progress Note: A&P Assessment and plan (1) Obstructive sleep apnea: Status: Acute (2) Respiratory failure: Status: Acute (3) Acidosis, lactic: Status: Acute (4) Leukocytosis: Status: Acute (5) Hypoxia: Status: Acute (6) Dyspnea on exertion: Status: Acute (7) Morbid obesity: Status: Acute (8) Diastolic CHF: Status: Acute (9) Oxygen dependent: Status: Acute (10) Chronic hypercapnic respiratory failure: Status: Acute (11) Essential hypertension: Status: Acute (12) Obesity hypoventilation syndrome: Status: Acute Plan So the plan is nasal high-flow beginning at 50 liters/minute for her daytime maintenance of she can eat her 3 meals with p.r.n. and nocturnal use of BiPAP at nominal settings very stable just needs slow weaning of a prednisone as well as potentially even slow weaning of the nasal high-flow probably needs arrangement for nocturnal device and possibly a pulmonary physician for a follow-up to help make outpatient arrangements for positive-pressure device Quality Stroke Does the patient have a stroke diagnosis?: No VTE Prior VTE?: No VTE Risk Level:: Medical - moderate - high VTE Device Contraindication: N/A - Device Ordered VTE Drug Contraindication: N/A - Med Ordered
--- NOTE | 2022-04-11 15:48 | PM.EVENT ---
Event Note Date of Service: 04/11/22 Event Note: Discussed with Dr. Day. Transfer from ICU from for acute on chronic hypoxic resp failure, asthmatic bronchitis steroids (should be 3 weeks taper), nebs, bipap at night and prn, high flow during the day (60% pco2) COPD TAURUS hypercapneic resp failure obesity hypoventilation
[2022-04-11 16:15] LABS: Glucose, Whole Blood 209 mg/dL (60-115)
[2022-04-11 20:52] LABS: Glucose, Whole Blood 117 mg/dL (60-115)
[2022-04-11] MEDS: Azithromycin 500 MG in 0.9 % Sodium Chloride 250 ML 125 MG IV (21:05)
[2022-04-12] VITALS (9 sets, daily range): BP systolic 116–181; BP diastolic 67–95; PULSE 79–98; RESP 14–20; TEMP 36.1–36.9; O2SAT 95–99; BMI 60.2; BMI 587.6
[2022-04-12 07:21] LABS: Glucose, Whole Blood 103 mg/dL (60-115)
[2022-04-12] MEDS: Enoxaparin Sodium 40 MG/0.4 ML SYRINGE SUBCUT ×2 (08:19→20:00)
[2022-04-12] MEDS: Insulin Glargine,Hum.rec.anlog 100 UNIT/ML 10 ML VIAL 15 UNIT SUBCUT ×2 (08:19→19:56)
[2022-04-12] MEDS: acetaZOLAMIDE 250 MG TABLET PO (08:21)
[2022-04-12] MEDS: Docusate Sodium 100 MG CAPSULE PO ×2 (08:21→19:55)
[2022-04-12] MEDS: metFORMIN HCl 500 MG TABLET PO ×2 (08:22→17:09)
[2022-04-12] MEDS: lisinopriL 10 MG TABLET PO (08:22)
[2022-04-12] MEDS: VerapamiL HCL 120 MG TABLET PO ×2 (08:22→19:55)
[2022-04-12] MEDS: Spironolactone 25 MG TABLET PO (08:22)
[2022-04-12] MEDS: predniSONE 20 MG TABLET 40 MG PO (08:22)
[2022-04-12] MEDS: Salmeterol Xinafoate 50 MCG BLST.W.DEV 1 PUFF INHALE ×2 (09:34→19:14)
[2022-04-12] MEDS: Fluticasone Propionate 250 MCG BLST.W.DEV 1 PUFF INHALE ×2 (09:34→19:14)
--- NOTE | 2022-04-12 09:56 | P.CONPL_ITS ---
History of Present Illness History of Present Illness Consult date: 04/12/22 Chief complaint: Acute Respiratory Failure Narrative: This is an inpatient pulmonary consultation. The patient is a 61-year-old female who speaks German only, who has underlying history of obstructive sleep apnea on CPAP, CHF, COPD not O2 dependent, diabetes, obesity, prior stroke with residual left lower extremity hemiparesis and slight left eye visual deficits, ex-smoker with a 100-120 pack-year history who quit 6 months ago, prior cocaine abuse, recent diagnosis of asthma among others presented to emergency room via ambulance with complaints of having difficulty breathing.? Reportedly EMS noted the patient was on CPAP and noted her sats in the 50s, patient was diaphoretic, however upon checking her O2 sat on her earlobe it was 94%, it was believed that the initial O2 sat was wrong due to the nail [place]ian present.? The patient did get bronchodilators in the ER. COVID negative.? U tox negative. ?Initial chest x-ray showed stable enlargement of the cardiac silhouette.? Question peribronchial cuffing.? This could be related to pulmonary venous redistribution or airway disease.? Her initial ABG showed pH of 7.25, pCO2 of 1 6, PO2 of 69, HC03 of 40.? Patient was placed on BiPAP and we were asked to admit the patient to the ICU. The patient was transferred to the floor. She is currently on HF 30% and BIPAP 15/8 at night. The patient pace that she does have a BiPAP at home. I did request that she can bring it in. The patient also is complaining about her Mo catheter. . She would like to taken out. She feels better she is on a chair and she states that her respiratory status is a lot better. The patient overall feels better although her repeat ABG still so is mild acute on chronic acidosis. Review of Systems Review of Systems: Constitutional : No Fever, No Chills ENT/Mouth : No Hoarseness, No sore throat, No Rhinorrhea Eyes: No Redness, No Discharge, No Vision Changes Cardiovascular : No Chest Pain, Respiratory : positive Cough, No Sputum, - Wheezing, Gastrointestinal : No Nausea, No Vomiting, No Diarrhea, No abdominal Pain Genitourinary : + a Dysuria, No Hematuria Musculoskeletal : No joint pain, No Myalgias Skin : No rash Neuro : No Weakness, No Numbness, No Headache Psych : No anxiety, depression Heme/Lymph: No Bruising, No Bleeding Endocrine : No Polyuria, No Polydipsia All other systems reviewed and are negative [facility] Past Medical History Medical History (Updated 04/12/22 @ 10:05 by Francisco Malone MD) Cerebrovascular accident involving posterior circulation Cocaine use disorder, mild, in sustained remission COPD (chronic obstructive pulmonary disease) Diabetes mellitus Diastolic CHF Essential hypertension Moderate asthma Obesity Obstructive sleep apnea TAURUS (obstructive sleep apnea) Oxygen dependent Family History Family History Father Medical history unknown Mother Diabetes Hypertension Father Medical history unknown Mother Hypertension Diabetes Other Substance use disorder Surgical History Surgical History History of cholecystectomy History of cholecystectomy History of open reduction and internal fixation (ORIF) procedure History of open reduction and internal fixation (ORIF) procedure History of tubal ligation History of tubal ligation Social History Social History Household Members: Spouse Housing: Apartment Do you presently have visiting nurse or other home services: Yes Alcohol intake: former Patient Tobacco Use Status: Former Tobacco user Tobacco use type: Cigarette Cigarette Packs Per Day: 0.75 Cigarettes Per Day: 15.0 Years Smoked: 31 years e-Cigarette/Vaping Use: Never Used Second Hand Smoke Exposure: Yes Use of substances other than those prescribed or required for medical reasons: No Substance Use Type: Crack/Cocaine Currently Displaying Signs/Symptoms of Drug Intoxication Withdrawal: No Have you been hit, kicked, punched, or otherwise hurt by someone within the past year? If so, by whom?: No Do you feel safe in your current relationship?: Yes Is there a partner from a previous relationship who is making you feel unsafe now?: No Are you made to feel afraid or neglected: No Advance Directives: Yes Advance Directives on File: Yes Advance Directives Date on File: 08/28/21 Do you have thoughts of harming others: None Recently lost weight without trying: No Nutrition Risks: No Nutritional Risk Patient : No : No Poor oral hygiene: No service: No Current occupational status: disabled Cognitive needs: Yes (walker/wheelchair/cane) Hearing needs: No Vision needs: Yes Meds Allergies Allergy/AdvReac Type Severity Reaction Status Date / Time No Known Allergies Allergy Verified 12/27/21 14:13 Active Medications: Current Medications Acetazolamide (Acetazolamide 250 Mg Tablet) 250 mg PO DAILY [facility] Last Admin: 04/12/22 08:21 Dose: 250 mg Albuterol Sulfate (Albuterol Sulfate (0.083%) 2.5 Mg/3 Ml Vial.Neb) 2.5 mg INHALE Q4H PRN PRN Reason: Wheezing Last Admin: 04/10/22 09:36 Dose: 2.5 mg Docusate Sodium (Docusate Sodium 100 Mg Capsule) 100 mg PO BID [facility] Last Admin: 04/12/22 08:21 Dose: 100 mg Enoxaparin Sodium (Enoxaparin Sodium 40 Mg/0.4 Ml Syringe) 40 mg SUBCUT BID [facility] Last Admin: 04/12/22 08:19 Dose: 40 mg Fluticasone Propionate (Fluticasone Propionate 250 Mcg Blst.W.Dev) 1 puff INHALE RBID [facility] Last Admin: 04/12/22 09:34 Dose: 1 puff Azithromycin 500 mg/ Sodium (Chloride) 250 mls @ 125 mls/hr IV Q24H [facility] Last Infusion: 04/11/22 23:07 Dose: Infused Insulin Glargine (Insulin Glargine,Hum.Rec.Anlog 100 Unit/Ml 10 Ml Vial) 15 unit SUBCUT BID [facility] Last Admin: 04/12/22 08:19 Dose: 15 unit Insulin Human Lispro (Insulin Lispro 100 Unit/Ml 3 Ml Vial) 0 unit SUBCUT QIDACHS [facility]; Protocol Last Admin: 04/12/22 07:46 Dose: Not Given Lisinopril (Lisinopril 10 Mg Tablet) 10 mg PO DAILY [facility]; Protocol Last Admin: 04/12/22 08:22 Dose: 10 mg Metformin HCl (Metformin Hcl 500 Mg Tablet) 500 mg PO BIDWM [facility] Last Admin: 04/12/22 08:22 Dose: 500 mg Pharmacy Consult (Consult Rx Perform Med Rec) 1 each MISCELLANE ONCE PRN PRN Reason: Consult order Prednisone (Prednisone 20 Mg Tablet) 40 mg PO DAILY [facility] Last Admin: 04/12/22 08:22 Dose: 40 mg Salmeterol Xinafoate (Salmeterol Xinafoate 50 Mcg Blst.W.Dev) 1 puff INHALE RBID [facility] Last Admin: 04/12/22 09:34 Dose: 1 puff Spironolactone (Spironolactone 25 Mg Tablet) 25 mg PO DAILY [facility]; Protocol Last Admin: 04/12/22 08:22 Dose: 25 mg Verapamil HCl (Verapamil Hcl 120 Mg Tablet) 120 mg PO BID [facility]; Protocol Last Admin: 04/12/22 08:22 Dose: 120 mg Home Medications Medication Instructions Recorded Confirmed Last Taken Type hydralazine 10 mg tablet 10 mg PO BID 12/27/21 04/06/22 Unknown History amlodipine 10 mg tablet 1 tab PO DAILY 04/06/22 04/06/22 Unknown History fluticasone 500 mcg-salmeterol 50 1 puff inhalation BID 04/06/22 04/06/22 04/06/22 History mcg/dose blistr powdr for inhalation (Advair Diskus) furosemide 20 mg tablet (Lasix) 20 mg PO DAILY 04/06/22 04/06/22 04/06/22 History hydrochlorothiazide 25 mg tablet 1 tab PO DAILY 04/06/22 04/06/22 04/06/22 History Physical Exam Vital Signs: Vital Signs: Last Vital Signs Temp 98.5 F 04/12/22 07:09 Pulse 89 04/12/22 09:34 Resp 16 04/12/22 09:34 BP 134/78 04/12/22 09:15 Pulse Ox 97 04/12/22 09:15 O2 Del Method 04/12/22 07:09 O2 Flow Rate 15 04/12/22 03:36 FiO2 28 04/12/22 04:00 Oxygen Flow Rate 28 04/11/22 08:00 BMI result Body Mass Index 587.6 Const: General: no acute distress and alert Nutritional Appearance: obese HEENT: Head: Yes atraumatic Mouth: no other ( thrush) Throat: No postnasal drainage Eyes: General: appearance normal, both eyes and all related structures Sclerae: sclerae normal EOM: EOMs intact bilaterally Neck: Neck: Yes supple Lymphatic: no lymphadenopathy noted Resp: Effort & Inspection: normal respiratory effort and no use of accessory muscles Auscultation: diminished lung sounds Cardio: Rate: regular rate Rhythm: regular rhythm Heart sounds: no gallops, no murmurs and no rubs GI: Palpation (GI): Soft to palpation and Other GI palpation findings present ( nontender) Skin: General skin exam: other ( warm) Rashes: no rashes Extrem: General: No clubbing, No cyanosis and Yes edema (2+ bilateral) Results Laboratory Findings CBC and BMP: 04/11/22 03:59 04/11/22 03:59 ABG, PT/INR, D-dimer: PT/INR, D-dimer PT 10.9 SEC (10.0-13.1) 04/06/22 13:44 INR 1.0 (0.9-1.1) 04/06/22 13:44 Abnormal lab findings: Abnormal Labs 04/06/22 04/06/22 04/06/22 13:44 13:44 13:44 WBC 14.9 H RBC Hgb Hct MCH 26.9 L MCHC 29.4 L Immature Gran % (Auto) 0.6 H Neut % (Auto) Lymph % (Auto) 19.4 L [place] % (Auto) Lymph # (Auto) Eos # (Auto) 0.6 H Abs Immat Gran (auto) 0.09 H Absolute Neuts (auto) 10.4 H ABG pH at Pt Temp ABG pCO2 at Pt Temp ABG pO2 at Pt Temp ABG HCO3 VBG pH VBG HCO3 Sodium Chloride 90 L Carbon Dioxide 33 H Anion Gap 22 H BUN 19 H POC Glucose Random Glucose 270 H Lactic Acid 3.0 H* Lactic Acid F/U @ 2Hr Phosphorus ALT Total Protein 8.2 H Albumin 04/06/22 04/06/22 04/06/22 14:15 14:16 16:12 WBC RBC Hgb Hct MCH MCHC Immature Gran % (Auto) Neut % (Auto) Lymph % (Auto) [place] % (Auto) Lymph # (Auto) Eos # (Auto) Abs Immat Gran (auto) Absolute Neuts (auto) ABG pH at Pt Temp 7.25 L 7.29 L ABG pCO2 at Pt Temp 106 H* 91 H* ABG pO2 at Pt Temp 69 L 63 L ABG HCO3 47 H 44 H VBG pH 7.29 L VBG HCO3 41 H Sodium Chloride Carbon Dioxide Anion Gap BUN POC Glucose Random Glucose Lactic Acid Lactic Acid F/U @ 2Hr Phosphorus ALT Total Protein Albumin 04/06/22 04/06/22 04/07/22 17:05 22:19 02:09 WBC RBC Hgb Hct MCH MCHC Immature Gran % (Auto) Neut % (Auto) Lymph % (Auto) [place] % (Auto) Lymph # (Auto) Eos # (Auto) Abs Immat Gran (auto) Absolute Neuts (auto) ABG pH at Pt Temp 7.24 L 7.49 H ABG pCO2 at Pt Temp 113 H* 57 H ABG pO2 at Pt Temp 74 L 80 L ABG HCO3 48 H 43 H VBG pH VBG HCO3 Sodium Chloride Carbon Dioxide Anion Gap BUN POC Glucose Random Glucose Lactic Acid Lactic Acid F/U @ 2Hr 2.3 H* Phosphorus ALT Total Protein Albumin 04/07/22 04/07/22 04/07/22 02:49 05:30 05:30 WBC 14.3 H RBC Hgb 11.1 L Hct MCH 26.0 L MCHC 29.7 L Immature Gran % (Auto) Neut % (Auto) 93.8 H Lymph % (Auto) 4.9 L [place] % (Auto) 0.8 L Lymph # (Auto) 0.7 L Eos # (Auto) Abs Immat Gran (auto) 0.06 H Absolute Neuts (auto) 13.4 H ABG pH at Pt Temp ABG pCO2 at Pt Temp ABG pO2 at Pt Temp ABG HCO3 VBG pH VBG HCO3 Sodium Chloride 89 L Carbon Dioxide 40 H* D Anion Gap BUN 25 H POC Glucose 255 H Random Glucose 307 H Lactic Acid Lactic Acid F/U @ 2Hr Phosphorus 1.9 L ALT 33 H Total Protein Albumin 04/07/22 04/07/22 04/07/22 05:37 05:39 12:59 WBC RBC Hgb Hct MCH MCHC Immature Gran % (Auto) Neut % (Auto) Lymph % (Auto) [place] % (Auto) Lymph # (Auto) Eos # (Auto) Abs Immat Gran (auto) Absolute Neuts (auto) ABG pH at Pt Temp ABG pCO2 at Pt Temp ABG pO2 at Pt Temp ABG HCO3 VBG pH 7.48 H 7.46 H VBG HCO3 45 H 45 H Sodium Chloride Carbon Dioxide Anion Gap BUN POC Glucose 291 H Random Glucose Lactic Acid Lactic Acid F/U @ 2Hr Phosphorus ALT Total Protein Albumin 04/07/22 04/07/22 04/08/22 14:11 17:28 01:28 WBC RBC Hgb Hct MCH MCHC Immature Gran % (Auto) Neut % (Auto) Lymph % (Auto) [place] % (Auto) Lymph # (Auto) Eos # (Auto) Abs Immat Gran (auto) Absolute Neuts (auto) ABG pH at Pt Temp ABG pCO2 at Pt Temp ABG pO2 at Pt Temp ABG HCO3 VBG pH VBG HCO3 Sodium Chloride Carbon Dioxide Anion Gap BUN POC Glucose 241 H 261 H 290 H Random Glucose Lactic Acid Lactic Acid F/U @ 2Hr Phosphorus ALT Total Protein Albumin 04/08/22 04/08/22 04/08/22 05:13 05:13 05:13 WBC RBC Hgb 11.2 L Hct 36.5 L MCH 26.5 L MCHC 30.7 L Immature Gran % (Auto) Neut % (Auto) 88.2 H Lymph % (Auto) 7.6 L [place] % (Auto) Lymph # (Auto) 0.8 L Eos # (Auto) Abs Immat Gran (auto) Absolute Neuts (auto) 9.2 H ABG pH at Pt Temp ABG pCO2 at Pt Temp ABG pO2 at Pt Temp ABG HCO3 VBG pH VBG HCO3 35 H Sodium Chloride Carbon Dioxide 33 H Anion Gap BUN 29 H POC Glucose Random Glucose 287 H Lactic Acid Lactic Acid F/U @ 2Hr Phosphorus ALT Total Protein Albumin 04/08/22 04/08/22 04/08/22 05:38 11:20 11:40 WBC RBC Hgb Hct MCH MCHC Immature Gran % (Auto) Neut % (Auto) Lymph % (Auto) [place] % (Auto) Lymph # (Auto) Eos # (Auto) Abs Immat Gran (auto) Absolute Neuts (auto) ABG pH at Pt Temp ABG pCO2 at Pt Temp ABG pO2 at Pt Temp ABG HCO3 VBG pH VBG HCO3 34 H Sodium Chloride Carbon Dioxide Anion Gap BUN POC Glucose 251 H 250 H Random Glucose Lactic Acid Lactic Acid F/U @ 2Hr Phosphorus ALT Total Protein Albumin 04/08/22 04/08/22 04/08/22 16:26 19:53 20:05 WBC RBC Hgb Hct MCH MCHC Immature Gran % (Auto) Neut % (Auto) Lymph % (Auto) [place] % (Auto) Lymph # (Auto) Eos # (Auto) Abs Immat Gran (auto) Absolute Neuts (auto) ABG pH at Pt Temp ABG pCO2 at Pt Temp ABG pO2 at Pt Temp ABG HCO3 VBG pH VBG HCO3 31 H Sodium Chloride Carbon Dioxide Anion Gap BUN POC Glucose 256 H 249 H Random Glucose Lactic Acid Lactic Acid F/U @ 2Hr Phosphorus ALT Total Protein Albumin 04/09/22 04/09/22 04/09/22 04:50 04:51 04:56 WBC RBC 4.19 L Hgb 11.3 L Hct 36.3 L MCH MCHC Immature Gran % (Auto) 0.5 H Neut % (Auto) 92.0 H Lymph % (Auto) 3.9 L [place] % (Auto) Lymph # (Auto) 0.4 L Eos # (Auto) Abs Immat Gran (auto) 0.05 H Absolute Neuts (auto) 9.3 H ABG pH at Pt Temp ABG pCO2 at Pt Temp ABG pO2 at Pt Temp ABG HCO3 VBG pH VBG HCO3 27 H Sodium Chloride Carbon Dioxide Anion Gap BUN 35 H POC Glucose Random Glucose 303 H Lactic Acid Lactic Acid F/U @ 2Hr Phosphorus ALT Total Protein Albumin 04/09/22 04/09/22 04/09/22 07:21 11:33 16:39 WBC RBC Hgb Hct MCH MCHC Immature Gran % (Auto) Neut % (Auto) Lymph % (Auto) [place] % (Auto) Lymph # (Auto) Eos # (Auto) Abs Immat Gran (auto) Absolute Neuts (auto) ABG pH at Pt Temp ABG pCO2 at Pt Temp ABG pO2 at Pt Temp ABG HCO3 VBG pH VBG HCO3 Sodium Chloride Carbon Dioxide Anion Gap BUN POC Glucose 252 H 345 H 298 H Random Glucose Lactic Acid Lactic Acid F/U @ 2Hr Phosphorus ALT Total Protein Albumin 04/09/22 04/10/22 04/10/22 20:12 05:16 05:16 WBC RBC 4.10 L Hgb 11.1 L Hct 36.0 L MCH MCHC 30.8 L Immature Gran % (Auto) Neut % (Auto) 75.4 H Lymph % (Auto) 14.5 L [place] % (Auto) Lymph # (Auto) Eos # (Auto) Abs Immat Gran (auto) Absolute Neuts (auto) ABG pH at Pt Temp ABG pCO2 at Pt Temp ABG pO2 at Pt Temp ABG HCO3 VBG pH VBG HCO3 Sodium Chloride Carbon Dioxide 31 H Anion Gap BUN 36 H POC Glucose 248 H Random Glucose 149 H Lactic Acid Lactic Acid F/U @ 2Hr Phosphorus ALT Total Protein 6.2 L Albumin 04/10/22 04/10/22 04/10/22 05:22 07:20 11:14 WBC RBC Hgb Hct MCH MCHC Immature Gran % (Auto) Neut % (Auto) Lymph % (Auto) [place] % (Auto) Lymph # (Auto) Eos # (Auto) Abs Immat Gran (auto) Absolute Neuts (auto) ABG pH at Pt Temp ABG pCO2 at Pt Temp ABG pO2 at Pt Temp ABG HCO3 VBG pH VBG HCO3 33 H Sodium Chloride Carbon Dioxide Anion Gap BUN POC Glucose 127 H 230 H Random Glucose Lactic Acid Lactic Acid F/U @ 2Hr Phosphorus ALT Total Protein Albumin 04/10/22 04/10/22 04/10/22 12:13 16:28 20:03 WBC RBC Hgb Hct MCH MCHC Immature Gran % (Auto) Neut % (Auto) Lymph % (Auto) [place] % (Auto) Lymph # (Auto) Eos # (Auto) Abs Immat Gran (auto) Absolute Neuts (auto) ABG pH at Pt Temp ABG pCO2 at Pt Temp ABG pO2 at Pt Temp ABG HCO3 VBG pH 7.27 L VBG HCO3 32 H Sodium Chloride Carbon Dioxide Anion Gap BUN POC Glucose 293 H 251 H Random Glucose Lactic Acid Lactic Acid F/U @ 2Hr Phosphorus ALT Total Protein Albumin 04/11/22 04/11/22 04/11/22 03:59 03:59 04:03 WBC RBC 4.03 L Hgb 10.6 L Hct 35.9 L MCH 26.3 L MCHC 29.5 L Immature Gran % (Auto) Neut % (Auto) Lymph % (Auto) [place] % (Auto) Lymph # (Auto) Eos # (Auto) Abs Immat Gran (auto) Absolute Neuts (auto) ABG pH at Pt Temp ABG pCO2 at Pt Temp ABG pO2 at Pt Temp ABG HCO3 VBG pH 7.30 L VBG HCO3 36 H Sodium 146 H Chloride Carbon Dioxide 32 H Anion Gap BUN 25 H POC Glucose Random Glucose 161 H Lactic Acid Lactic Acid F/U @ 2Hr Phosphorus ALT Total Protein 5.7 L Albumin 3.3 L 04/11/22 04/11/22 04/11/22 10:02 11:14 13:04 WBC RBC Hgb Hct MCH MCHC Immature Gran % (Auto) Neut % (Auto) Lymph % (Auto) [place] % (Auto) Lymph # (Auto) Eos # (Auto) Abs Immat Gran (auto) Absolute Neuts (auto) ABG pH at Pt Temp ABG pCO2 at Pt Temp ABG pO2 at Pt Temp ABG HCO3 VBG pH 7.29 L 7.30 L VBG HCO3 39 H 38 H Sodium Chloride Carbon Dioxide Anion Gap BUN POC Glucose 206 H Random Glucose Lactic Acid Lactic Acid F/U @ 2Hr Phosphorus ALT Total Protein Albumin 04/11/22 04/11/22 04/11/22 14:19 16:11 20:49 WBC RBC Hgb Hct MCH MCHC Immature Gran % (Auto) Neut % (Auto) Lymph % (Auto) [place] % (Auto) Lymph # (Auto) Eos # (Auto) Abs Immat Gran (auto) Absolute Neuts (auto) ABG pH at Pt Temp ABG pCO2 at Pt Temp ABG pO2 at Pt Temp ABG HCO3 VBG pH 7.31 L VBG HCO3 34 H Sodium Chloride Carbon Dioxide Anion Gap BUN POC Glucose 209 H 117 H Random Glucose Lactic Acid Lactic Acid F/U @ 2Hr Phosphorus ALT Total Protein Albumin Microbiology: Microbiology 04/06/22 14:15 Blood - Venous Blood Culture - Final No growth after 5 days. 04/07/22 Unknown Sputum - Suctioned Gram Stain - Final 04/07/22 Unknown Sputum - Suctioned Sputum Culture - Final 04/06/22 14:07 Blood - Venous Blood Culture - Final Coag negative Staphylococcus Assessment and Plan (1) Obstructive sleep apnea: Status: Acute (2) Acute on chronic respiratory failure with hypoxia and hypercapnia: Status: Acute (3) Asthma exacerbation: Status: Acute (4) Diastolic CHF: Status: Acute Plan Diuresis as tolerated wean off HF Increase BIPAP 25/01 continue prednisone taper continue azithromycin diuresis as tolerated Procedures Date of Service Date of Service: 04/12/22
[2022-04-12 11:47] LABS: Glucose, Whole Blood 179 mg/dL (60-115)
[2022-04-12] MEDS: Insulin Lispro 100 UNIT/ML 3 ML VIAL SUBCUT ×3 (12:10→19:56)
[2022-04-12 16:16] LABS: Glucose, Whole Blood 213 mg/dL (60-115)
--- NOTE | 2022-04-12 16:16 | HO.PM.IMPN ---
Subjective Subjective Date of Service: 04/12/22 Interval History: Seen and examined this morning Follow-up for respiratory failure History obtained with the use of a senior credit analyst Primary issue this morning is that her Mo catheter is bothering her and she is requesting to have it removed She reports improvement in her breathing. Review of Systems Review of Systems: Yes all other systems are reviewed and are negative Constitutional Constitutional: Denies chills and Denies fever(s) Cardiovascular Cardiovascular: Denies chest pain, Denies palpitations and Denies dyspnea Respiratory Respiratory: Denies cough and Denies dyspnea Gastrointestinal Gastrointestinal: Denies abdominal pain, Denies nausea and Denies vomiting Endocrine Endocrine: Denies palpitations Physical Exam Vital Signs: Vital Signs: Last Vital Signs Temp 96.9 F 04/12/22 15:28 Pulse 98 04/12/22 15:28 Resp 18 04/12/22 15:28 BP 181/95 H 04/12/22 15:28 Pulse Ox 96 04/12/22 15:28 O2 Del Method 04/12/22 15:28 O2 Flow Rate 3 04/12/22 15:28 FiO2 28 04/12/22 04:00 Oxygen Flow Rate 28 04/11/22 08:00 BMI result Body Mass Index 587.6 Const: General: comfortable, no acute distress, alert and awake Nutritional Appearance: obese Orientation/consciousness: patient oriented x3 Resp: Other: diminished breath sounds Effort & Inspection: normal respiratory effort Cardio: Rate: regular rate Heart sounds: S1 normal heart sound present and S2 normal heart sound present GI: Inspection: No distended Palpation (GI): Soft to palpation and nontender Neuro: General: patient oriented x3 and CN's II-XI intact bilaterally Extrem: Other: able to move all extremities spontaneously General: Yes no pedal edema Objective Data Active Medications Acetazolamide (Acetazolamide 250 Mg Tablet) 250 mg PO DAILY [facility] Last Admin: 04/12/22 08:21 Dose: 250 mg Documented By: RENETTA Albuterol Sulfate (Albuterol Sulfate (0.083%) 2.5 Mg/3 Ml Vial.Neb) 2.5 mg INHALE Q4H PRN PRN Reason: Wheezing Last Admin: 04/10/22 09:36 Dose: 2.5 mg Documented By: NATALI Docusate Sodium (Docusate Sodium 100 Mg Capsule) 100 mg PO BID [facility] Last Admin: 04/12/22 08:21 Dose: 100 mg Documented By: RENETTA Enoxaparin Sodium (Enoxaparin Sodium 40 Mg/0.4 Ml Syringe) 40 mg SUBCUT BID [facility] Last Admin: 04/12/22 08:19 Dose: 40 mg Documented By: RENETTA Fluticasone Propionate (Fluticasone Propionate 250 Mcg Blst.W.Dev) 1 puff INHALE RBID [facility] Last Admin: 04/12/22 09:34 Dose: 1 puff Documented By: ANYA Azithromycin 500 mg/ Sodium (Chloride) 250 mls @ 125 mls/hr IV Q24H [facility] Last Infusion: 04/11/22 23:07 Dose: 0 mls/hr Documented By: SUNNY Insulin Glargine (Insulin Glargine,Hum.Rec.Anlog 100 Unit/Ml 10 Ml Vial) 15 unit SUBCUT BID [facility] Last Admin: 04/12/22 08:19 Dose: 15 unit Documented By: RENETTA Insulin Human Lispro (Insulin Lispro 100 Unit/Ml 3 Ml Vial) 0 unit SUBCUT QIDACHS [facility]; Protocol Last Admin: 04/12/22 12:10 Dose: 2 unit Documented By: RENETTA Lisinopril (Lisinopril 10 Mg Tablet) 10 mg PO DAILY [facility]; Protocol Last Admin: 04/12/22 08:22 Dose: 10 mg Documented By: RENETTA Metformin HCl (Metformin Hcl 500 Mg Tablet) 500 mg PO BIDWM [facility] Last Admin: 04/12/22 08:22 Dose: 500 mg Documented By: RENETTA Pharmacy Consult (Consult Rx Perform Med Rec) 1 each MISCELLANE ONCE PRN PRN Reason: Consult order Prednisone (Prednisone 20 Mg Tablet) 40 mg PO DAILY [facility] Last Admin: 04/12/22 08:22 Dose: 40 mg Documented By: RENETTA Salmeterol Xinafoate (Salmeterol Xinafoate 50 Mcg Blst.W.Dev) 1 puff INHALE RBID [facility] Last Admin: 04/12/22 09:34 Dose: 1 puff Documented By: ANYA Spironolactone (Spironolactone 25 Mg Tablet) 25 mg PO DAILY [facility]; Protocol Last Admin: 04/12/22 08:22 Dose: 25 mg Documented By: RENETTA Verapamil HCl (Verapamil Hcl 120 Mg Tablet) 120 mg PO BID [facility]; Protocol Last Admin: 04/12/22 08:22 Dose: 120 mg Documented By: RENETTA Labs CBC & Chem 7: 04/11/22 03:59 04/11/22 03:59 Labs: Laboratory Results - last 24 hr 04/11/22 04/11/22 04/12/22 16:11 20:49 07:12 POC Glucose 209 H 117 H 103 04/12/22 11:35 POC Glucose 179 H Microbiology Microbiology Results: Microbiology 04/06/22 14:15 Blood Culture - Final Blood - Venous No growth after 5 days. Assessment and Plan (1) Acute on chronic respiratory failure with hypoxia and hypercapnia: Status: Acute Plan This is a 61-year-old Frisian-speaking female with history of chronic respiratory failure on 3 L of home O2 at baseline, morbid obesity, obstructive sleep apnea, asthma initially admitted to the ICU for hypercarbic/hypoxic respiratory failure initially requiring ICU level of care and intubation, extubated 04/08 and downgraded from the ICU on April 11 Acute on chronic respiratory failure with hypercarbia/hypoxia Multifactorial r/t CHF, TAURUS, asthma, obesity hypoventilation seen by pulmonology - adjust bipap settings per pulm rec Wean high-flow oxygen continue prednisone taper continue azithromycin acute on chronic diastolic CHF on lasix and HCTZ at baseline changed to aldactone in ICU Hypertension Continue verapamil, lisinopril, Aldactone -resume hydralazine -lisinopril dose decreased in ICU -verapamil dose decreased in ICU -dose of norvasc placed on hold in ICU -monitor blood pressure closely, may need to resume/up titrate meds if remains elevated TAURUS bipap as above DM continue metformin, Lantus (not on lantus at baseline) SSI, POCs check hba1c Morbid obesity BMI elevated, directly contributing to acute respiratory failure Weight loss encouraged HLD continue statin dvt ppx - lovenox code status - full code Attending-Dr. Lynne Requires ongoing inpatient hospitalization for management of acute respiratory failure requiring supplemental oxygen Quality Stroke Does the patient have a stroke diagnosis?: No VTE Prior VTE?: No VTE Risk Level:: Medical - moderate - high VTE Device Contraindication: N/A - Device Ordered VTE Drug Contraindication: N/A - Med Ordered
--- NOTE | 2022-04-12 19:29 | PC.NURSE ---
Mo cath removed today at 11:45am. Pt voided 800ml during the voiding trial period.
[2022-04-12 19:54] LABS: Glucose, Whole Blood 184 mg/dL (60-115)
[2022-04-12] MEDS: Atorvastatin Calcium 80 MG TABLET PO (19:55)
[2022-04-12] MEDS: hydrALAZINE HCl 10 MG TABLET PO (19:55)
[2022-04-12] MEDS: Azithromycin 500 MG in 0.9 % Sodium Chloride 250 ML 125 MG IV (21:13)
[2022-04-13] VITALS (8 sets, daily range): BP systolic 113–153; BP diastolic 60–86; PULSE 73–101; RESP 15–20; TEMP 36.6–37.1; O2SAT 93–99; BMI 57.9
[2022-04-13 07:31] LABS: Glucose, Whole Blood 87 mg/dL (60-115)
[2022-04-13 08:09] LABS: VBG Base Excess 18.8 mmol/L; VBG HCO3 48 mmol/L (22-26); VBG pCO2 83 mmHg; VBG pH 7.37 (7.32-7.43); VBG pO2 69 mmHg
[2022-04-13 08:09] LABS: Venous Blood Gas Refer to POC result
[2022-04-13] MEDS: Fluticasone Propionate 250 MCG BLST.W.DEV 1 PUFF INHALE ×2 (08:11→20:02)
[2022-04-13] MEDS: Salmeterol Xinafoate 50 MCG BLST.W.DEV 1 PUFF INHALE ×2 (08:11→20:02)
[2022-04-13 08:23] LABS: Anion Gap 15 (12-20); Blood Urea Nitrogen 22 mg/dL (9-16); Calcium 8.6 mg/dL (8.4-10.2); Carbon Dioxide 33 mmol/L (22-29); Chloride 101 mmol/L (96-108); Creatinine Clr Calc Pharmacy 902.4; Estimated Glomerular Filt Rate > 60; Glucose Random 88 mg/dL (60-115); Sodium 145 mmol/L (135-145)
[2022-04-13 08:28] LABS: Estimated Average Glucose 174 mg/dL; Hemoglobin A1c % 7.7 %
--- NOTE | 2022-04-13 09:23 | P.PNPL_ITS ---
Subjective Subjective Date of Service: 04/13/22 Interval history: The patient was seen and examined. The patient is doing better, ABG is overall better. She used her own ivap last night. but apperantly was infested with cockroaches. [employer] is disinfecting it. She needs the machine to be able to go home. Objective Data Labs CBC & Chem 7: 04/11/22 03:59 04/13/22 07:50 Labs: Laboratory Results - last 24 hr 04/12/22 04/12/22 04/12/22 11:35 15:57 19:47 VBG pH VBG pCO2 VBG pO2 VBG HCO3 VBG O2 Saturation VBG Base Excess Sodium Potassium Chloride Carbon Dioxide Anion Gap BUN Creatinine Estim Creat Clear Calc Estimated GFR POC Glucose 179 H 213 H 184 H Random Glucose Estimat Average Glucose Hemoglobin A1c % Calcium 04/13/22 04/13/22 04/13/22 07:15 07:50 07:50 VBG pH VBG pCO2 VBG pO2 VBG HCO3 VBG O2 Saturation VBG Base Excess Sodium 145 Potassium 4.0 Chloride 101 Carbon Dioxide 33 H Anion Gap 15 BUN 22 H Creatinine 0.60 Estim Creat Clear Calc 902.4 Estimated GFR > 60 POC Glucose 87 Random Glucose 88 Estimat Average Glucose 174 Hemoglobin A1c % 7.7 Calcium 8.6 04/13/22 07:59 VBG pH 7.37 VBG pCO2 83 VBG pO2 69 VBG HCO3 48 H VBG O2 Saturation 92.0 VBG Base Excess 18.8 Sodium Potassium Chloride Carbon Dioxide Anion Gap BUN Creatinine Estim Creat Clear Calc Estimated GFR POC Glucose Random Glucose Estimat Average Glucose Hemoglobin A1c % Calcium Microbiology Microbiology Results: Microbiology 04/06/22 14:15 Blood - Venous Blood Culture - Final No growth after 5 days. 04/07/22 Unknown Sputum - Suctioned Gram Stain - Final 04/07/22 Unknown Sputum - Suctioned Sputum Culture - Final 04/06/22 14:07 Blood - Venous Blood Culture - Final Coag negative Staphylococcus Review of Systems Review of Systems Constitutional : No Fever, No Chills ENT/Mouth : No Hoarseness, No sore throat, No Rhinorrhea Eyes: No Redness, No Discharge, No Vision Changes Cardiovascular : No Chest Pain, Respiratory : - Cough, No Sputum, - Wheezing, Gastrointestinal : No Nausea, No Vomiting, No Diarrhea, No abdominal Pain Genitourinary : No Hematuria Musculoskeletal : No joint pain, No Myalgias Skin : No rash Neuro : No Weakness, No Numbness, No Headache Psych : No anxiety, depression Heme/Lymph: No Bruising, No Bleeding Endocrine : No Polyuria, No Polydipsia All other systems reviewed and are negative Physical Exam Vital Signs: Vital Signs: Last Vital Signs Temp 97.8 F 04/13/22 03:05 Pulse 85 04/13/22 08:13 Resp 17 04/13/22 08:13 BP 153/86 H 04/13/22 03:05 Pulse Ox 93 04/13/22 03:05 O2 Del Method 04/13/22 03:05 O2 Flow Rate 3 04/12/22 19:20 FiO2 35 04/13/22 03:05 Oxygen Flow Rate 28 04/11/22 08:00 BMI result Body Mass Index 57.9 Const: General: comfortable, no acute distress, alert and awake Nutritional Appearance: obese Orientation/consciousness: patient oriented x3 Resp: Other: diminished breath sounds Effort & Inspection: normal respiratory effort Cardio: Rate: regular rate Heart sounds: S1 normal heart sound present and S2 normal heart sound present GI: Inspection: No distended Palpation (GI): Soft to palpation and nontender Neuro: General: patient oriented x3 and CN's II-XI intact bilaterally Extrem: Other: able to move all extremities spontaneously General: Yes no pedal edema Procedures Date of Service Date of Service: 04/13/22 Assessment and Plan Assessment and plan (1) Acute on chronic respiratory failure with hypoxia and hypercapnia: Status: Acute (2) Asthma exacerbation: Status: Acute (3) Diastolic CHF: Status: Acute Plan continue iVAPS (astral resmed) every night continue respiratory therapy prednisone taper for 14 days oxygen 3L to keep pox 90-96% Hospital f/u with her delivery helper Time Spent With Patient Time: Total time spent is greater than 50% in coordination of care (as documented) at patient's floor/unit and/or counseling patient: Progress Note: Quality Stroke Does the patient have a stroke diagnosis?: No
[2022-04-13] MEDS: Lidocaine 4 % Patch ADH..PATCH 1 PATCH TRANSDERMA (10:48)
[2022-04-13] MEDS: hydrALAZINE HCl 10 MG TABLET PO ×2 (10:49→20:53)
[2022-04-13] MEDS: Aspirin Enteric Coated 81 MG TABLET.DR PO (10:49)
[2022-04-13] MEDS: metFORMIN HCl 500 MG TABLET PO ×2 (10:49→16:40)
[2022-04-13] MEDS: predniSONE 20 MG TABLET 40 MG PO (10:50)
[2022-04-13] MEDS: lisinopriL 10 MG TABLET PO (10:50)
[2022-04-13] MEDS: acetaZOLAMIDE 250 MG TABLET PO (10:50)
[2022-04-13] MEDS: VerapamiL HCL 120 MG TABLET PO ×2 (10:50→20:52)
[2022-04-13] MEDS: Spironolactone 25 MG TABLET PO (10:50)
[2022-04-13] MEDS: Enoxaparin Sodium 40 MG/0.4 ML SYRINGE SUBCUT ×2 (10:51→20:54)
[2022-04-13] MEDS: Insulin Glargine,Hum.rec.anlog 100 UNIT/ML 10 ML VIAL 15 UNIT SUBCUT ×2 (10:51→20:54)
[2022-04-13 11:32] LABS: Glucose, Whole Blood 138 mg/dL (60-115)
--- NOTE | 2022-04-13 14:37 | MHC.CM.PN ---
EMR REVIEWED. PT WILL NEED A NEW BI PAP AND HOME FUMAGATED BEFORE RETURNING HOME. CM SPOKE WITH SON MELISSA ([phone]) HE IS SEEING TO THE CLEAN UP OF HER HOME. PT AND SON DECLINING REHAB. PT/SON AWARE CAN'T GO HOME UNTIL HAS A BIPAP MACHINE. ALL PARTIES AWARE OF THIS BARRIER. RESPIRATORY IS WORKING WITH [facility] TO OBTAIN ANOTHER MACHINE.
--- NOTE | 2022-04-13 15:05 | HO.PM.IMPN ---
Subjective Subjective Date of Service: 04/13/22 Interval History: seen and examined this morning. history obtained with assistance of ordnance officer Follow-up for respiratory failure Back down to baseline supplemental oxygen. Brought iVAPS machine from home but not able to use as it was noted to have bugs in it denies SOB, cough Review of Systems Review of Systems: Yes all other systems are reviewed and are negative Constitutional Constitutional: Denies chills and Denies fever(s) Cardiovascular Cardiovascular: Denies chest pain, Denies palpitations and Denies dyspnea Respiratory Respiratory: Denies cough and Denies dyspnea Gastrointestinal Gastrointestinal: Denies abdominal pain, Denies nausea and Denies vomiting Endocrine Endocrine: Denies palpitations Physical Exam Vital Signs: Vital Signs: Last Vital Signs Temp 97.8 F 04/13/22 03:05 Pulse 85 04/13/22 10:06 Resp 17 04/13/22 08:13 BP 153/86 H 04/13/22 03:05 Pulse Ox 93 04/13/22 03:05 O2 Del Method 04/13/22 03:05 O2 Flow Rate 3 04/12/22 19:20 FiO2 35 04/13/22 03:05 Oxygen Flow Rate 28 04/11/22 08:00 BMI result Body Mass Index 57.9 Const: General: cooperative, comfortable, alert and awake Nutritional Appearance: obese Orientation/consciousness: patient oriented x3 Resp: Effort & Inspection: normal respiratory effort and able to speak in complete sentences Auscultation: clear to auscultation bilaterally Cardio: Rate: regular rate Heart sounds: S1 normal heart sound present and S2 normal heart sound present GI: Inspection: No distended and Yes obesity Palpation (GI): Soft to palpation Neuro: General: patient oriented x3 and CN's II-XI intact bilaterally Extrem: Other: able to move all 4 extremities spontaneously General: Yes no pedal edema Objective Data Active Medications Acetazolamide (Acetazolamide 250 Mg Tablet) 250 mg PO DAILY [facility] Last Admin: 04/13/22 10:50 Dose: 250 mg Documented By: ANNABELLA Albuterol Sulfate (Albuterol Sulfate (0.083%) 2.5 Mg/3 Ml Vial.Neb) 2.5 mg INHALE Q4H PRN PRN Reason: Wheezing Last Admin: 04/10/22 09:36 Dose: 2.5 mg Documented By: NATALI Aspirin (Aspirin Enteric Coated 81 Mg Tablet.) 81 mg PO DAILY [facility] Last Admin: 04/13/22 10:49 Dose: 81 mg Documented By: ANNABELLA Atorvastatin Calcium (Atorvastatin Calcium 80 Mg Tablet) 80 mg PO BEDTIME [facility] Last Admin: 04/12/22 19:55 Dose: 80 mg Documented By: RADHA Docusate Sodium (Docusate Sodium 100 Mg Capsule) 100 mg PO BID [facility] Last Admin: 04/13/22 10:51 Dose: Not Given Documented By: ANNABELLA Non-Admin Reason: Patient Condition Contraindication Enoxaparin Sodium (Enoxaparin Sodium 40 Mg/0.4 Ml Syringe) 40 mg SUBCUT BID [facility] Last Admin: 04/13/22 10:51 Dose: 40 mg Documented By: ANNABELLA Fluticasone Propionate (Fluticasone Propionate 250 Mcg Blst.W.Dev) 1 puff INHALE RBID [facility] Last Admin: 04/13/22 08:11 Dose: 1 puff Documented By: ANYA Hydralazine HCl (Hydralazine Hcl 10 Mg Tablet) 10 mg PO BID [facility]; Protocol Last Admin: 04/13/22 10:49 Dose: 10 mg Documented By: ANNABELLA Azithromycin 500 mg/ Sodium (Chloride) 250 mls @ 125 mls/hr IV Q24H [facility] Last Infusion: 04/12/22 23:45 Dose: 0 mls/hr Documented By: RADHA Insulin Glargine (Insulin Glargine,Hum.Rec.Anlog 100 Unit/Ml 10 Ml Vial) 15 unit SUBCUT BID [facility] Last Admin: 04/13/22 10:51 Dose: 15 unit Documented By: ANNABELLA Insulin Human Lispro (Insulin Lispro 100 Unit/Ml 3 Ml Vial) 0 unit SUBCUT QIDACHS [facility]; Protocol Last Admin: 04/13/22 11:45 Dose: Not Given Documented By: ANNABELLA Non-Admin Reason: No Insulin Coverage Lidocaine (Lidocaine 4 % Patch Adh..Patch) 1 patch TRANSDERMA DAILY [facility] Last Admin: 04/13/22 10:48 Dose: 1 patch Documented By: ANNABELLA Lisinopril (Lisinopril 10 Mg Tablet) 10 mg PO DAILY [facility]; Protocol Last Admin: 04/13/22 10:50 Dose: 10 mg Documented By: ANNABELLA Metformin HCl (Metformin Hcl 500 Mg Tablet) 500 mg PO BIDWM [facility] Last Admin: 04/13/22 10:49 Dose: 500 mg Documented By: ANNABELLA Pharmacy Consult (Consult Rx Perform Med Rec) 1 each MISCELLANE ONCE PRN PRN Reason: Consult order Prednisone (Prednisone 20 Mg Tablet) 40 mg PO DAILY [facility] Last Admin: 04/13/22 10:50 Dose: 40 mg Documented By: ANNABELLA Salmeterol Xinafoate (Salmeterol Xinafoate 50 Mcg Blst.W.Dev) 1 puff INHALE RBID [facility] Last Admin: 04/13/22 08:11 Dose: 1 puff Documented By: ANYA Senna (Sennosides 8.6 Mg Tablet) 8.6 mg PO BID PRN PRN Reason: constipation Spironolactone (Spironolactone 25 Mg Tablet) 25 mg PO DAILY [facility]; Protocol Last Admin: 04/13/22 10:50 Dose: 25 mg Documented By: ANNABELLA Verapamil HCl (Verapamil Hcl 120 Mg Tablet) 120 mg PO BID [facility]; Protocol Last Admin: 04/13/22 10:50 Dose: 120 mg Documented By: ANNABELLA Labs CBC & Chem 7: 04/11/22 03:59 04/13/22 07:50 Labs: Laboratory Results - last 24 hr 04/12/22 04/12/22 04/13/22 15:57 19:47 07:15 VBG pH VBG pCO2 VBG pO2 VBG HCO3 VBG O2 Saturation VBG Base Excess Anion Gap Estim Creat Clear Calc Estimated GFR POC Glucose 213 H 184 H 87 Random Glucose Estimat Average Glucose Hemoglobin A1c % Calcium 04/13/22 04/13/22 04/13/22 07:50 07:50 07:59 VBG pH 7.37 VBG pCO2 83 VBG pO2 69 VBG HCO3 48 H VBG O2 Saturation 92.0 VBG Base Excess 18.8 Anion Gap 15 Estim Creat Clear Calc 902.4 Estimated GFR > 60 POC Glucose Random Glucose 88 Estimat Average Glucose 174 Hemoglobin A1c % 7.7 Calcium 8.6 04/13/22 11:13 VBG pH VBG pCO2 VBG pO2 VBG HCO3 VBG O2 Saturation VBG Base Excess Anion Gap Estim Creat Clear Calc Estimated GFR POC Glucose 138 H Random Glucose Estimat Average Glucose Hemoglobin A1c % Calcium Assessment and Plan (1) Acute on chronic respiratory failure with hypoxia and hypercapnia: Status: Acute Plan This is a 61-year-old Estonian-speaking female with history of chronic respiratory failure on 3 L of home O2 at baseline, morbid obesity, obstructive sleep apnea, asthma initially admitted to the ICU for hypercarbic/hypoxic respiratory failure initially requiring ICU level of care and intubation, extubated 04/08 and downgraded from the ICU on April 11 Acute on chronic respiratory failure with hypercarbia/hypoxia Multifactorial r/t CHF, TAURUS, asthma, obesity hypoventilation seen by pulmonology - adjust bipap settings per pulm rec Weaned off of high-flow oxygen, back on baseline 3L. Goal o2 90-96% continue prednisone taper - pulm rec 14 day taper completed 7 day course of abx *needs new/loaner ivaps machine before discharge acute on chronic diastolic CHF euvolemic on lasix and HCTZ at baseline on aldactone and Diamox in ICU -d/c diamox -resume low dose lasix Hypertension. BP controlled Continue verapamil, lisinopril, Aldactone -resume hydralazine -lisinopril dose decreased in ICU -verapamil dose decreased -dose of norvasc placed on hold -monitor blood pressure closely, may need to resume/up titrate meds if remains elevated TAURUS ivaps as above DM hba1c 7.7 continue metformin, Lantus (not on lantus at baseline) SSI, POCs Morbid obesity BMI elevated, directly contributing to acute respiratory failure Weight loss encouraged HLD continue statin dvt ppx - lovenox code status - full code Attending-Dr. Lynne dispo - pt rec STR, patient has declined and wishes to return home with services. apartment reportedly needs to be fumigated before returning home Requires ongoing inpatient hospitalization for management of acute respiratory failure requiring supplemental oxygen Quality Stroke Does the patient have a stroke diagnosis?: No VTE Prior VTE?: No VTE Risk Level:: Medical - moderate - high VTE Device Contraindication: N/A - Device Ordered VTE Drug Contraindication: N/A - Med Ordered
[2022-04-13 16:24] LABS: Glucose, Whole Blood 223 mg/dL (60-115)
[2022-04-13] MEDS: Insulin Lispro 100 UNIT/ML 3 ML VIAL SUBCUT ×2 (16:40→20:53)
[2022-04-13 19:55] LABS: Glucose, Whole Blood 249 mg/dL (60-115)
[2022-04-13] MEDS: Atorvastatin Calcium 80 MG TABLET PO (20:53)
[2022-04-13] MEDS: Docusate Sodium 100 MG CAPSULE PO (20:53)
[2022-04-14] VITALS (11 sets, daily range): BP systolic 116–164; BP diastolic 61–84; PULSE 76–96; RESP 13–20; TEMP 36.3–37.7; O2SAT 98–100
[2022-04-14 06:29] LABS: Anion Gap 13 (12-20); Blood Urea Nitrogen 20 mg/dL (9-16); Calcium 8.8 mg/dL (8.4-10.2); Carbon Dioxide 33 mmol/L (22-29); Chloride 102 mmol/L (96-108); Creatinine Clr Calc Pharmacy 131.9; Estimated Glomerular Filt Rate > 60; Glucose Random 101 mg/dL (60-115); Potassium 4.2 mmol/L (3.3-5.1); Sodium 144 mmol/L (135-145)
[2022-04-14 07:47] LABS: Glucose, Whole Blood 96 mg/dL (60-115)
[2022-04-14] MEDS: Salmeterol Xinafoate 50 MCG BLST.W.DEV 1 PUFF INHALE ×2 (08:23→19:58)
[2022-04-14] MEDS: Fluticasone Propionate 250 MCG BLST.W.DEV 1 PUFF INHALE ×2 (08:23→19:58)
[2022-04-14] MEDS: Lidocaine 4 % Patch ADH..PATCH 1 PATCH TRANSDERMA (09:35)
[2022-04-14] MEDS: metFORMIN HCl 500 MG TABLET PO ×2 (09:36→17:32)
[2022-04-14] MEDS: Furosemide 20 MG TABLET PO (09:36)
[2022-04-14] MEDS: Enoxaparin Sodium 40 MG/0.4 ML SYRINGE SUBCUT ×2 (09:36→21:42)
[2022-04-14] MEDS: lisinopriL 10 MG TABLET PO (09:36)
[2022-04-14] MEDS: Aspirin Enteric Coated 81 MG TABLET.DR PO (09:36)
[2022-04-14] MEDS: predniSONE 20 MG TABLET 40 MG PO (09:36)
[2022-04-14] MEDS: hydrALAZINE HCl 10 MG TABLET PO ×2 (09:36→21:43)
[2022-04-14] MEDS: Docusate Sodium 100 MG CAPSULE PO ×2 (09:36→21:43)
[2022-04-14] MEDS: Spironolactone 25 MG TABLET PO (09:36)
[2022-04-14] MEDS: VerapamiL HCL 120 MG TABLET PO ×2 (09:36→21:43)
[2022-04-14 11:34] LABS: Glucose, Whole Blood 146 mg/dL (60-115)
--- NOTE | 2022-04-14 12:18 | MHC.CM.PN ---
Per PA, Patient prefers to go home but is willing to consider STR. At this time, [facility] is the only SNF even considering. KIRAN has asked [facility] [place] to initiate insurance auth on Saturday, if they are able to offer a bed. CM will follow.
--- NOTE | 2022-04-14 12:37 | P.PNIM_ITS ---
Subjective Subjective Date of Service: 04/14/22 Interval History: seen and examined this morning history obtained with assistance of floor coverings installer denies sob, cough reports apartment is being cleaned/fumigated Review of Systems Review of Systems: Yes all other systems are reviewed and are negative Constitutional Constitutional: Denies chills and Denies fever(s) Cardiovascular Cardiovascular: Denies chest pain, Denies palpitations and Denies dyspnea Respiratory Respiratory: Denies cough and Denies dyspnea Gastrointestinal Gastrointestinal: Denies abdominal pain, Denies nausea and Denies vomiting Endocrine Endocrine: Denies palpitations Physical Exam Vital Signs: Vital Signs: Last Vital Signs Temp 97.6 F 04/14/22 09:00 Pulse 89 04/14/22 09:00 Resp 16 04/14/22 09:00 BP 116/69 04/14/22 09:00 Pulse Ox 99 04/14/22 09:00 O2 Del Method 04/14/22 09:00 O2 Flow Rate 3 04/14/22 09:00 FiO2 35 04/13/22 03:05 Oxygen Flow Rate 28 04/11/22 08:00 BMI result Body Mass Index 57.9 Const: General: cooperative, comfortable, no acute distress, alert and awake Nutritional Appearance: obese Orientation/consciousness: patient oriented x3 Resp: Other: diminished breath sounds Effort & Inspection: normal respiratory effort and ab le to speak in complete sentences Auscultation: clear to auscultation gianni aterally Cardio: Rate: regular rate Heart sounds: S1 normal heart sound present and S2 normal heart sound present GI: Inspection: No distended and Yes obesity Palpation (GI): Soft to palpation and nontender Neuro: General: patient oriented x3 and CN's II-XI intact bilaterally Extrem: Other: able to move all 4 extremities spontaneously General: Yes no pedal edema Objective Data Active Medications Albuterol Sulfate (Albuterol Sulfate (0.083%) 2.5 Mg/3 Ml Vial.Neb) 2.5 mg INHALE Q4H PRN PRN Reason: Wheezing Last Admin: 04/10/22 09:36 Dose: 2.5 mg Documented By: NATALI Aspirin (Aspirin Enteric Coated 81 Mg Tablet.) 81 mg PO DAILY [facility] Last Admin: 04/14/22 09:36 Dose: 81 mg Documented By: ADAMS Atorvastatin Calcium (Atorvastatin Calcium 80 Mg Tablet) 80 mg PO BEDTIME [facility] Last Admin: 04/13/22 20:53 Dose: 80 mg Documented By: IDALIA Docusate Sodium (Docusate Sodium 100 Mg Capsule) 100 mg PO BID [facility] Last Admin: 04/14/22 09:36 Dose: 100 mg Documented By: ADAMS Enoxaparin Sodium (Enoxaparin Sodium 40 Mg/0.4 Ml Syringe) 40 mg SUBCUT BID [facility] Last Admin: 04/14/22 09:36 Dose: 40 mg Documented By: ADAMS Fluticasone Propionate (Fluticasone Propionate 250 Mcg Blst.W.Dev) 1 puff INHALE RBID [facility] Last Admin: 04/14/22 08:23 Dose: 1 puff Documented By: NATALI Furosemide (Furosemide 20 Mg Tablet) 20 mg PO DAILY [facility]; Protocol Last Admin: 04/14/22 09:36 Dose: 20 mg Documented By: ADAMS Hydralazine HCl (Hydralazine Hcl 10 Mg Tablet) 10 mg PO BID [facility]; Protocol Last Admin: 04/14/22 09:36 Dose: 10 mg Documented By: ADAMS Insulin Glargine (Insulin Glargine,Hum.Rec.Anlog 100 Unit/Ml 10 Ml Vial) 15 unit SUBCUT BID [facility] Last Admin: 04/14/22 09:37 Dose: Not Given Documented By: ADAMS Non-Admin Reason: decrease blood glucose Insulin Human Lispro (Insulin Lispro 100 Unit/Ml 3 Ml Vial) 0 unit SUBCUT QIDACHS [facility]; Protocol Last Admin: 04/14/22 11:57 Dose: Not Given Documented By: ADAMS Non-Admin Reason: No Insulin Coverage Lidocaine (Lidocaine 4 % Patch Adh..Patch) 1 patch TRANSDERMA DAILY [facility] Last Admin: 04/14/22 09:35 Dose: 1 patch Documented By: ADAMS Lisinopril (Lisinopril 10 Mg Tablet) 10 mg PO DAILY [facility]; Protocol Last Admin: 04/14/22 09:36 Dose: 10 mg Documented By: ADAMS Metformin HCl (Metformin Hcl 500 Mg Tablet) 500 mg PO BIDWM [facility] Last Admin: 04/14/22 09:36 Dose: 500 mg Documented By: ADAMS Pharmacy Consult (Consult Rx Perform Med Rec) 1 each MISCELLANE ONCE PRN PRN Reason: Consult order Prednisone (Prednisone 20 Mg Tablet) 40 mg PO DAILY [facility] Last Admin: 04/14/22 09:36 Dose: 40 mg Documented By: ADAMS Salmeterol Xinafoate (Salmeterol Xinafoate 50 Mcg Blst.W.Dev) 1 puff INHALE RBID [facility] Last Admin: 04/14/22 08:23 Dose: 1 puff Documented By: NATALI Senna (Sennosides 8.6 Mg Tablet) 8.6 mg PO BID PRN PRN Reason: constipation Spironolactone (Spironolactone 25 Mg Tablet) 25 mg PO DAILY [facility]; Protocol Last Admin: 04/14/22 09:36 Dose: 25 mg Documented By: ADAMS Verapamil HCl (Verapamil Hcl 120 Mg Tablet) 120 mg PO BID [facility]; Protocol Last Admin: 04/14/22 09:36 Dose: 120 mg Documented By: ADAMS Labs CBC & Chem 7: 04/11/22 03:59 04/14/22 06:05 Labs: Laboratory Results - last 24 hr 04/13/22 04/13/22 04/14/22 16:12 19:47 06:05 Anion Gap 13 Estim Creat Clear Calc 131.9 Estimated GFR > 60 POC Glucose 223 H 249 H Random Glucose 101 Calcium 8.8 04/14/22 04/14/22 07:21 11:30 Anion Gap Estim Creat Clear Calc Estimated GFR POC Glucose 96 146 H Random Glucose Calcium Assessment and Plan (1) Acute on chronic respiratory failure with hypoxia and hypercapnia: Status: Acute Plan This is a 61-year-old Romanian-speaking female with history of chronic respiratory failure on 3 L of home O2 at baseline, morbid obesity, obstructive sleep apnea, asthma initially admitted to the ICU for hypercarbic/hypoxic respiratory failure initially requiring ICU level of care and intubation, extubated 04/08 and downgraded from the ICU on April 11 Acute on chronic respiratory failure with hypercarbia/hypoxia Multifactorial r/t CHF, TAURUS, asthma, obesity hypoventilation seen by pulmonology - adjust bipap settings per pulm rec Weaned off of high-flow oxygen, back on baseline 3L. Goal o2 90-96% continue prednisone taper - pulm rec 14 day taper, on 40 mg x 6 days, will decrease to 30mg starting tomorrow completed 7 day course of abx *needs new/loaner ivaps machine before discharge acute on chronic diastolic CHF euvolemic on lasix and HCTZ at baseline on aldactone and Diamox in ICU d/c diamox resume low dose lasix metabolic acidosis bicarb chronically elevated diamox d/c Hypertension. BP controlled Continue verapamil, lisinopril, Aldactone, hydralazine -lisinopril, verapamil doses decreased in ICU -norvasc remains on hold -monitor blood pressure closely TAURUS continue ivaps as above DM hba1c 7.7 continue metformin, Lantus (not on lantus at baseline) SSI, POCs Morbid obesity BMI elevated, directly contributing to acute respiratory failure Weight loss encouraged HLD continue statin dvt ppx - lovenox code status - full code Attending-Dr. Harris dispo - pt rec STR, patient has declined and wishes to return home with services. apartment reportedly needs to be fumigated before returning home Requires ongoing inpatient hospitalization for management of acute respiratory failure requiring supplemental oxygen/ivaps- needs new machine before she can be discharged Quality Stroke Does the patient have a stroke diagnosis?: No VTE Prior VTE?: No VTE Risk Level:: Medical - moderate - high VTE Device Contraindication: N/A - Device Ordered VTE Drug Contraindication: N/A - Med Ordered
[2022-04-14 16:14] LABS: Glucose, Whole Blood 245 mg/dL (60-115)
[2022-04-14] MEDS: Insulin Lispro 100 UNIT/ML 3 ML VIAL SUBCUT ×2 (17:34→21:42)
[2022-04-14 19:56] LABS: Glucose, Whole Blood 223 mg/dL (60-115)
[2022-04-14] MEDS: Atorvastatin Calcium 80 MG TABLET PO (21:43)
[2022-04-14] MEDS: Insulin Glargine,Hum.rec.anlog 100 UNIT/ML 10 ML VIAL 15 UNIT SUBCUT (21:43)
[2022-04-15] VITALS (8 sets, daily range): BP systolic 109–155; BP diastolic 57–89; PULSE 78–102; RESP 15–18; TEMP 35.7–36.6; O2SAT 94–98; BMI 56.6
[2022-04-15 06:36] LABS: Anion Gap 16 (12-20); Blood Urea Nitrogen 17 mg/dL (9-16); Calcium 8.8 mg/dL (8.4-10.2); Carbon Dioxide 36 mmol/L (22-29); Chloride 98 mmol/L (96-108); Creatinine Clr Calc Pharmacy 127.6; Estimated Glomerular Filt Rate > 60; Glucose Random 102 mg/dL (60-115); Potassium 4.1 mmol/L (3.3-5.1); Sodium 146 mmol/L (135-145)
[2022-04-15 07:45] LABS: Glucose, Whole Blood 104 mg/dL (60-115)
[2022-04-15] MEDS: Salmeterol Xinafoate 50 MCG BLST.W.DEV 1 PUFF INHALE ×3 (07:59→19:36)
[2022-04-15] MEDS: Fluticasone Propionate 250 MCG BLST.W.DEV 1 PUFF INHALE ×2 (07:59→19:35)
[2022-04-15] MEDS: Aspirin Enteric Coated 81 MG TABLET.DR PO (08:50)
[2022-04-15] MEDS: Lidocaine 4 % Patch ADH..PATCH 1 PATCH TRANSDERMA (08:50)
[2022-04-15] MEDS: lisinopriL 10 MG TABLET PO (08:50)
[2022-04-15] MEDS: metFORMIN HCl 500 MG TABLET PO ×2 (08:50→17:01)
[2022-04-15] MEDS: Furosemide 20 MG TABLET PO (08:51)
[2022-04-15] MEDS: hydrALAZINE HCl 10 MG TABLET PO ×2 (08:51→21:10)
[2022-04-15] MEDS: Spironolactone 25 MG TABLET PO (08:51)
[2022-04-15] MEDS: predniSONE 10 MG TABLET 30 MG PO (08:51)
[2022-04-15] MEDS: Insulin Glargine,Hum.rec.anlog 100 UNIT/ML 10 ML VIAL 15 UNIT SUBCUT ×2 (08:52→21:09)
[2022-04-15] MEDS: VerapamiL HCL 120 MG TABLET PO ×2 (08:53→21:09)
[2022-04-15] MEDS: Enoxaparin Sodium 40 MG/0.4 ML SYRINGE SUBCUT ×2 (08:53→21:10)
--- NOTE | 2022-04-15 09:35 | MHC.CM.PN ---
Per PA/Jacquie, Patient now refusing SNF/STR. RT/Tr indicated yesterday that he is working with [facility] to obtain a new IVAP for Patient. CM has asked PA to reach out to Tr via [employer] (Tr is not working today but gave permission to reach out to him today for status update on getting new machine for Patient). CM will follow.
--- NOTE | 2022-04-15 10:23 | MHC.CM.PN ---
KIRAN spoke with Patient's Son/Anup @ [phone], who indicated that he has been working on cleaning up his Mother's house and getting rid of things that are not needed. Anup indicated that after the first extermination, there are still s few cockroaches remaining and that he plans to exterminate again today or tomorrow. KIRAN has relayed this information to CHANTALE/Jacquie and will continue to follow.
[2022-04-15 11:20] LABS: Glucose, Whole Blood 165 mg/dL (60-115)
[2022-04-15] MEDS: Insulin Lispro 100 UNIT/ML 3 ML VIAL SUBCUT ×3 (12:11→21:09)
--- NOTE | 2022-04-15 12:52 | HO.PM.IMPN ---
Subjective Subjective Date of Service: 04/15/22 Interval History: seen and examined this morning follow up for respiratory failure no sob, no cough feels well. adamantly refusing to go to rehab Review of Systems Review of Systems: Yes all other systems are reviewed and are negative Constitutional Constitutional: Denies chills and Denies fever(s) ENT Ears, Nose, Mouth, and Throat: Denies dizziness Cardiovascular Cardiovascular: Denies chest pain, Denies palpitations and Denies dyspnea Respiratory Respiratory: Denies cough and Denies dyspnea Gastrointestinal Gastrointestinal: Denies abdominal pain, Denies nausea and Denies vomiting Neurologic Neurologic: Denies dizziness Endocrine Endocrine: Denies palpitations Physical Exam Vital Signs: Vital Signs: Last Vital Signs Temp 96.3 F L 04/15/22 10:54 Pulse 93 04/15/22 10:54 Resp 18 04/15/22 10:54 BP 109/57 L 04/15/22 10:54 Pulse Ox 98 04/15/22 10:54 O2 Del Method 04/15/22 10:54 O2 Flow Rate 3 04/15/22 10:54 FiO2 98 04/14/22 20:02 Oxygen Flow Rate 28 04/11/22 08:00 BMI result Body Mass Index 56.6 Const: General: cooperative, comfortable, no acute distress, alert and awake Nutritional Appearance: obese Orientation/consciousness: patient oriented x3 Resp: Other: diminished breath sounds Effort & Inspection: normal respiratory effort and able to speak in complete sentences Auscultation: clear to auscultation bilaterally Cardio: Rate: regular rate Heart sounds: S1 normal heart sound present and S2 normal heart sound present GI: Inspection: No distended and Yes obesity Palpation (GI): Soft to palpation and nontender Neuro: General: patient oriented x3 and CN's II-XI intact bilaterally Extrem: Other: able to move all 4 extremities spontaneously General: Yes no pedal edema Objective Data Active Medications Albuterol Sulfate (Albuterol Sulfate (0.083%) 2.5 Mg/3 Ml Vial.Neb) 2.5 mg INHALE Q4H PRN PRN Reason: Wheezing Last Admin: 04/10/22 09:36 Dose: 2.5 mg Documented By: NATALI Aspirin (Aspirin Enteric Coated 81 Mg Tablet.) 81 mg PO DAILY [facility] Last Admin: 04/15/22 08:50 Dose: 81 mg Documented By: ADAMS Atorvastatin Calcium (Atorvastatin Calcium 80 Mg Tablet) 80 mg PO BEDTIME [facility] Last Admin: 04/14/22 21:43 Dose: 80 mg Documented By: TRAMAINE Docusate Sodium (Docusate Sodium 100 Mg Capsule) 100 mg PO BID [facility] Last Admin: 04/15/22 08:52 Dose: Not Given Documented By: ADAMS Non-Admin Reason: Patient Refused Enoxaparin Sodium (Enoxaparin Sodium 40 Mg/0.4 Ml Syringe) 40 mg SUBCUT BID [facility] Last Admin: 04/15/22 08:53 Dose: 40 mg Documented By: ADAMS Fluticasone Propionate (Fluticasone Propionate 250 Mcg Blst.W.Dev) 1 puff INHALE RBID [facility] Last Admin: 04/15/22 07:59 Dose: 1 puff Documented By: NATALI Furosemide (Furosemide 20 Mg Tablet) 20 mg PO DAILY [facility]; Protocol Last Admin: 04/15/22 08:51 Dose: 20 mg Documented By: ADAMS Hydralazine HCl (Hydralazine Hcl 10 Mg Tablet) 10 mg PO BID [facility]; Protocol Last Admin: 04/15/22 08:51 Dose: 10 mg Documented By: ADAMS Insulin Glargine (Insulin Glargine,Hum.Rec.Anlog 100 Unit/Ml 10 Ml Vial) 15 unit SUBCUT BID [facility] Last Admin: 04/15/22 08:52 Dose: 15 unit Documented By: ADAMS Insulin Human Lispro (Insulin Lispro 100 Unit/Ml 3 Ml Vial) 0 unit SUBCUT QIDACHS [facility]; Protocol Last Admin: 04/15/22 12:11 Dose: 2 unit Documented By: YOKO Lidocaine (Lidocaine 4 % Patch Adh..Patch) 1 patch TRANSDERMA DAILY [facility] Last Admin: 04/15/22 08:50 Dose: 1 patch Documented By: ADAMS Lisinopril (Lisinopril 10 Mg Tablet) 10 mg PO DAILY [facility]; Protocol Last Admin: 04/15/22 08:50 Dose: 10 mg Documented By: ADAMS Metformin HCl (Metformin Hcl 500 Mg Tablet) 500 mg PO BIDWM [facility] Last Admin: 04/15/22 08:50 Dose: 500 mg Documented By: ADAMS Pharmacy Consult (Consult Rx Perform Med Rec) 1 each MISCELLANE ONCE PRN PRN Reason: Consult order Prednisone (Prednisone 10 Mg Tablet) 30 mg PO DAILY [facility] Last Admin: 04/15/22 08:51 Dose: 30 mg Documented By: ADAMS Salmeterol Xinafoate (Salmeterol Xinafoate 50 Mcg Blst.W.Dev) 1 puff INHALE RBID [facility] Last Admin: 04/15/22 07:59 Dose: 1 puff Documented By: NATALI Senna (Sennosides 8.6 Mg Tablet) 8.6 mg PO BID PRN PRN Reason: constipation Spironolactone (Spironolactone 25 Mg Tablet) 25 mg PO DAILY [facility]; Protocol Last Admin: 04/15/22 08:51 Dose: 25 mg Documented By: ADAMS Verapamil HCl (Verapamil Hcl 120 Mg Tablet) 120 mg PO BID [facility]; Protocol Last Admin: 04/15/22 08:53 Dose: 120 mg Documented By: ADAMS Labs CBC & Chem 7: 04/11/22 03:59 04/15/22 05:52 Labs: Laboratory Results - last 24 hr 04/14/22 04/14/22 04/15/22 16:08 19:53 05:52 Anion Gap 16 Estim Creat Clear Calc 127.6 Estimated GFR > 60 POC Glucose 245 H 223 H Random Glucose 102 Calcium 8.8 04/15/22 04/15/22 07:38 10:50 Anion Gap Estim Creat Clear Calc Estimated GFR POC Glucose 104 165 H Random Glucose Calcium Assessment and Plan (1) Acute on chronic respiratory failure with hypoxia and hypercapnia: Status: Acute Plan This is a 61-year-old Occitan-speaking female with history of chronic respiratory failure on 3 L of home O2 at baseline, morbid obesity, obstructive sleep apnea, asthma initially admitted to the ICU for hypercarbic/hypoxic respiratory failure initially requiring ICU level of care and intubation, extubated 04/08 and downgraded from the ICU on April 11 Acute on chronic respiratory failure with hypercarbia/hypoxia Multifactorial r/t CHF, TAURUS, asthma, obesity hypoventilation seen by pulmonology - adjust bipap settings per pulm rec Weaned off of high-flow oxygen, back on baseline 3L. Goal o2 90-96% continue prednisone taper - pulm rec 14 day taper, on 40 mg x 6 days, decreased to 30 mg today completed 7 day course of abx *needs new/loaner ivaps machine before discharge acute on chronic diastolic CHF euvolemic on lasix and HCTZ at baseline on aldactone and Diamox in ICU d/c diamox resume low dose lasix metabolic acidosis bicarb chronically elevated diamox d/c Hypertension. BP controlled Continue verapamil, lisinopril, Aldactone, hydralazine -lisinopril, verapamil doses decreased in ICU -norvasc remains on hold -monitor blood pressure closely TAURUS continue ivaps as above DM hba1c 7.7 continue metformin, Lantus (not on lantus at baseline) SSI, POCs Morbid obesity BMI elevated, directly contributing to acute respiratory failure Weight loss encouraged HLD continue statin dvt ppx - lovenox code status - full code Attending-Dr. Harris dispo - pt rec STR, patient has declined and wishes to return home with services. apartment reportedly needs to be fumigated again before returning home, happening today or tomorrow. [facility] will provide new ivaps machine when apartment clean Requires ongoing inpatient hospitalization for management of acute respiratory failure requiring supplemental oxygen/ivaps- needs new machine before she can be discharged Quality Stroke Does the patient have a stroke diagnosis?: No VTE Prior VTE?: No VTE Risk Level:: Medical - moderate - high VTE Device Contraindication: N/A - Device Ordered VTE Drug Contraindication: N/A - Med Ordered
[2022-04-15 16:43] LABS: Glucose, Whole Blood 205 mg/dL (60-115)
[2022-04-15 20:05] LABS: Glucose, Whole Blood 221 mg/dL (60-115)
[2022-04-15] MEDS: Atorvastatin Calcium 80 MG TABLET PO (21:09)
[2022-04-16 00:35] VITALS: BP 118/72; PULSE 84; RESP 18; TEMP 36.3; O2SAT 99
[2022-04-16 01:14] VITALS: PULSE 84; RESP 18; O2SAT 100
[2022-04-16 04:00] VITALS: BP 139/71; PULSE 89; RESP 18; TEMP 36.5; O2SAT 89
[2022-04-16 04:44] VITALS: PULSE 87; RESP 18; O2SAT 97
[2022-04-16 06:00] VITALS: BMI 57.4
[2022-04-16] MEDS: Fluticasone Propionate 250 MCG BLST.W.DEV 1 PUFF INHALE (07:51)
[2022-04-16 08:00] VITALS: BP 104/59; PULSE 95; RESP 19; TEMP 36.2; O2SAT 96
[2022-04-16 08:05] LABS: Glucose, Whole Blood 111 mg/dL (60-115)
[2022-04-16] MEDS: predniSONE 10 MG TABLET 30 MG PO (08:15)
[2022-04-16] MEDS: Spironolactone 25 MG TABLET PO (08:15)
[2022-04-16] MEDS: Furosemide 20 MG TABLET PO (08:15)
[2022-04-16] MEDS: Aspirin Enteric Coated 81 MG TABLET.DR PO (08:15)
[2022-04-16] MEDS: lisinopriL 10 MG TABLET PO (08:16)
[2022-04-16] MEDS: Lidocaine 4 % Patch ADH..PATCH 1 PATCH TRANSDERMA (08:16)
[2022-04-16] MEDS: metFORMIN HCl 500 MG TABLET PO (08:16)
[2022-04-16] MEDS: hydrALAZINE HCl 10 MG TABLET PO (08:16)
[2022-04-16] MEDS: Insulin Glargine,Hum.rec.anlog 100 UNIT/ML 10 ML VIAL 15 UNIT SUBCUT (08:17)
[2022-04-16] MEDS: Enoxaparin Sodium 40 MG/0.4 ML SYRINGE SUBCUT (08:18)
[2022-04-16] MEDS: VerapamiL HCL 120 MG TABLET PO (08:20)
--- NOTE | 2022-04-16 10:57 | P.DS_ITS ---
DS: Providers Provider Date of Service: 04/16/22 Date of admission: 04/06/22 17:35 Primary care physician: Dolores Dubois MD Consults: 04/12/22 10:13 Consult to Pulmonology Routine Consulting Provider: Francisco Malone Reason for consultation: respiratory failure Has provider been notified: Yes Attending physician on discharge: Seun Lynne Discharging clinician: Joselyn Malone DS: Diagnosis Discharge Diagnosis (1) Acute on chronic respiratory failure with hypoxia and hypercapnia: Status: Acute DS: Summary Hospital Course Hospital Course: History physical as per admitting provider 61-year-old female who speaks Croatian only, who has underlying history of obstructive sleep apnea on CPAP, CHF, COPD not O2 dependent, diabetes, obesity, prior stroke with residual left lower extremity hemiparesis and slight left eye visual deficits, ex-smoker with a 100-120 pack-year history who quit 6 months ago, prior cocaine abuse, recent diagnosis of asthma among others presented to emergency room via ambulance with complaints of having difficulty breathing.? Reportedly EMS noted the patient was on CPAP and noted her sats in the 50s, patient was diaphoretic, however upon checking her O2 sat on her earlobe it was 94%, it was believed that the initial O2 sat was wrong due to the nail Czech present.? The patient did get bronchodilators in the ER. Her workup reveal white count 14.9, H&H of 12.8 in 43.5 respectively, platelets 376 with a left shift. ?Sodium 140, potassium 5.0, chloride 90, carbon dioxide 33, anion gap 22, BUN 19, creatinine 0.77, random glucose 270, lactic acid 3.0 which went down to 2.3.? COVID negative.? U tox negative. ?Initial chest x-ray showed stable enlargement of the cardiac silhouette.? Question peribronchial cuffing.? This could be related to pulmonary venous redistribution or airway disease.? Her initial ABG showed pH of 7.25, pCO2 of 1 6, PO2 of 69, HC03 of 40.? Patient was placed on BiPAP and we were asked to admit the patient to the ICU. There my evaluation, the patient did admit to me that she had some minor cough without sputum production, has had some chills but no actual fever, has posterior of breath for the past 24 hours, she does have a history of asthma has been using her albuterol nebulizers.? She has no trouble recently, there is no history of PE or DVT.? She has not be intubated in past . Acute on chronic respiratory failure with hypercarbia/hypoxia Multifactorial r/t CHF, TAURUS, asthma, obesity hypoventilation seen by pulmonology - adjust bipap settings per pulm rec Weaned off of high-flow oxygen, back on baseline 3L. Goal o2 90-96% continue prednisone taper, 9 more days completed 7 day course of abx Respiratory therapy was able to secure an Ivaps machine and will be delivered to her home acute on chronic diastolic CHF euvolemic on lasix and HCTZ at baseline on aldactone and Diamox in ICU d/c diamox resume low dose lasix and sprionolactone metabolic acidosis bicarb chronically elevated diamox d/c Hypertension. BP controlled Continue verapamil, lisinopril, Aldactone, hydralazine -lisinopril, verapamil doses decreased in ICU -norvasc remains on hold -monitor blood pressure closely TAURUS continue ivaps as above DM hba1c 7.7 continue metformin, Lantus (not on lantus at baseline) SSI, POCs Morbid obesity BMI elevated, directly contributing to acute respiratory failure Weight loss encouraged HLD continue statin ? Time Spent with Patient Time attestation: Total time spent providing and/or coordinating discharge services: Discharge coordination time: Greater than 30 minutes Quality: Safe Use of Opioids Does Pt have an Active Cancer Diagnosis on the Problem List?: No Quality: Stroke Does the patient have a stroke diagnosis?: No Physical Exam Vital Signs: Vital Signs: Last Vital Signs Temp 97.1 F 04/16/22 08:00 Pulse 95 04/16/22 08:00 Resp 19 04/16/22 08:00 BP 104/59 L 04/16/22 08:00 Pulse Ox 96 04/16/22 08:00 O2 Del Method 04/16/22 08:00 O2 Flow Rate 3.0 04/16/22 08:00 FiO2 98 04/14/22 20:02 Oxygen Flow Rate 28 04/11/22 08:00 BMI result Body Mass Index 57.4 Appearing in no acute distress head is normocephalic atraumatic eyes pupils are PERRLA sclera is anicteric mouth throat mucous membranes are intact and moist neck is supple no lymphadenopathy, no JVD noted lung sounds are clear to auscultation heart regular rate rhythm, clear S1, S2 positive bowel sounds, abdomen is soft, nontender neuro patient is alert x3, no focal deficits DS: Data Data Completed and Pending Completed studies during hospitalization [Text1]: Procedures Assistance with Respiratory Ventilation, Less than 24 Consecutive Hours, Continuous Positive Airway Pressure (10/11/21) Labs on day of discharge: Laboratory Results - last 24 hr 04/15/22 04/15/22 04/15/22 10:50 16:32 20:02 POC Glucose 165 H 205 H 221 H 04/16/22 07:42 POC Glucose 111 Discharge Plan Discharge Anticipated Discharge Date/Time: 04/16/22 10:30 Patient Disposition: Home Health Service Discharge Diagnosis: Acute on chronic respiratory failure with hypercarbia and hypoxia Acute on chronic diastolic congestive heart failure Metabolic acidosis Referrals: Dolores Renteria MD [Primary Care Provider] - 1 Week (Call office to schedule follow up appointment) Discharge Medications: New prednisone 10 mg Tablet See Taper PO DAILY Qty: 18 0RF Taper: Prednisone 30 mg daily for 3 Days and 0 Hour 20 mg daily for 3 Days and 0 Hour 10 mg daily for 3 Days and 0 Hour spironolactone 25 mg Tablet 25 mg PO DAILY Qty: 30 0RF Protocol: Hold for SBP< HOLD for SBP < : 90 verapamil 120 mg Tablet 120 mg PO BID Qty: 30 0RF Protocol: Hold for SBP/HR < HOLD for SBP < : 90 HOLD for HR < : 60 lisinopril 10 mg Tablet 10 mg PO DAILY Qty: 30 0RF Protocol: Hold for SBP< HOLD for SBP < : 90 Continued lidocaine 5 % adhesive patch,medicated 1 patch topical DAILY 30 Days Qty: 30 0RF Rx Instructions: leave on most painful area for up to 12 hrs metformin 500 mg tablet 500 mg PO BID 90 Days Qty: 180 3RF thiamine HCl (vitamin B1) 100 mg tablet 100 mg PO DAILY 90 Days Qty: 90 1RF sennosides [Senna Lax] 8.6 mg tablet 8.6 mg PO BID PRN (Reason: constipation) 90 Days Qty: 180 1RF Combivent Respimat 20-100 mcg/actuation mist 1 puff INHALATION QID Qty: 4 1RF cholecalciferol (vitamin D3) 50 mcg (2,000 unit) capsule 50 mcg PO DAILY 90 Days Qty: 90 1RF atorvastatin 80 mg tablet 80 mg PO BEDTIME Qty: 30 6RF (DME) adult diapers pull-ups XXL See Rx Instructions .Route .MEDSUPPLY Qty: 200 11RF Rx Instructions: As directed (DME) underpads [Bed Underpads] Pad See Rx Instructions .Route Qty: 40 6RF Rx Instructions: As directed (DME) wipes standard See Rx Instructions .Route .MEDSUPPLY Qty: 200 11RF Rx Instructions: As directed aspirin 81 mg tablet,delayed release (DR/EC) 81 mg PO DAILY 90 Days Qty: 90 0RF (DME) AeroEclipse II Nebulizer Misc See Rx Instructions .Route Qty: 1 0RF Rx Instructions: As directed fluticasone propionate [Flonase Allergy Relief] 50 mcg/actuation spray,suspension 1 spray intranasal DAILY 30 Days Qty: 16 2RF Rx Instructions: administer into each nostril albuterol sulfate [ProAir HFA] 90 mcg/actuation HFA aerosol inhaler 2 puff PO Q6H PRN (Reason: wheezing) Qty: 8.5 1RF albuterol sulfate 2.5 mg /3 mL (0.083 %) solution for nebulization 2.5 mg inhalation Q4-6H PRN (Reason: for wheezing) 30 Days Qty: 75 3RF fluticasone propion-salmeterol [Advair Diskus] 500-50 mcg/dose blister with device 1 puff INHALATION BID hydrochlorothiazide 25 mg tablet 1 tab PO DAILY furosemide [Lasix] 20 mg tablet 20 mg PO DAILY amlodipine 10 mg tablet 1 tab PO DAILY acetaminophen [Tylenol 8 Hour] 650 mg tablet extended release 650 mg PO Q8H PRN (Reason: pain) 30 Days Qty: 90 11RF hydralazine 10 mg tablet 10 mg PO BID Protocol: Hold for SBP< HOLD for SBP < : 90 Discontinued lisinopril 20 mg tablet 20 mg PO DAILY 90 Days Qty: 90 1RF verapamil 240 mg capsule,ext rel. pellets 24 hr 240 mg PO DAILY 90 Days Qty: 90 1RF Discharge Orders: Discharge Order (Routine); Ordered 04/16/22 Ordered By: Joselyn Malone Diet: Advance to usual diet Activity on Discharge: As tolerated Stand Alone Forms: Patient Portal Discharge page Care Plan Goals: Complete resolution of symptoms Health Concerns: Acute on chronic respiratory failure with hypercarbia and hypoxia Acute on chronic diastolic congestive heart failure Metabolic acidosis Plan of Treatment: Follow-up with primary care provider as needed Take all medications as prescribed Your new CPAP machine will be delivered to your home this afternoon, please use as instructed Assessment: See discharge summary
[2022-04-16 11:25] LABS: Glucose, Whole Blood 140 mg/dL (60-115)
--- NOTE | 2022-04-16 11:40 | MHC.CM.PN ---
DP: PT MEDICALLY CLEARED FOR DC HOME WITH NEW [facility]. PER RESPIRATORY, [facility] WILL BE DELIVERING NEW BI PAP AT 1:30 PM. SON MELISSA MADE AWARE. RN/ [facility] NOTIFIED OF DC. BLS TRANSPORT BOOKED WITH [facility] FOR 3 PM.
--- NOTE | 2022-04-16 11:45 | W.MHC.F2F ---
Service Date Service Date: 04/16/22 Encounter Date of encounter: 04/16/22 Reasons for Services Signs and symptoms assessed: Acute hypoxic respiratory failure Reason for intermediate: CV/CP assess and/or care and teach disease management Homebound: Leaving the home is medically contraindicated at this time without the asist of a device and/or another person due th the listed conditions above and below. Reason homebound: unsteady gait / fall risk Certification: Based on the above findings, I certify that this patient is confined to the home and needs intermittent intermediate care, physical therapy and/or speech therapy, or continues to need occupational therapy. The patient is under my care, and I have initiated the establishment of the plan of care. The patient will be followed by a physician who will periodically review the plan of care.
[2022-04-16 11:57] VITALS: BP 118/63; PULSE 108; RESP 20; TEMP 36; O2SAT 92
== END 2022-04-16 15:27 | disposition home health service (06) | DRG 140 ==
LOC: HO.ED 14:35 → HO.EDOVER 17:42 → HO.ICU 17:51 → HO.IMC 04-11 19:12
PROVIDERS: Anesthesiology; Hospitalist; Internal Medicine Cardiovascular Disease; Physician Assistant; Physician Assistant Medical; Admitting Provider Nurse Practitioner Family; Emergency Provider Emergency Medicine; PCP Internal Medicine; Visit Provider Nurse Practitioner Acute Care
DX: J44.1 Chronic obstructive pulmonary disease with (acute) exacerbation (principal); J96.21 Acute and chronic respiratory failure with hypoxia; I50.33 Acute on chronic diastolic (congestive) heart failure; N17.9 Acute kidney failure, unspecified; I69.354 Hemiplegia and hemiparesis following cerebral infarction affecting left non-dominant side; E66.2 Morbid (severe) obesity with alveolar hypoventilation; E87.4 Mixed disorder of acid-base balance; J45.901 Unspecified asthma with (acute) exacerbation; I11.0 Hypertensive heart disease with heart failure; E86.0 Dehydration; Z68.43 Body mass index [BMI] 50.0-59.9, adult; J96.22 Acute and chronic respiratory failure with hypercapnia; Z20.822 Contact with and (suspected) exposure to COVID-19; Z23 Encounter for immunization; Z79.51 Long term (current) use of inhaled steroids; Z87.891 Personal history of nicotine dependence; Z79.82 Long term (current) use of aspirin; Z79.84 Long term (current) use of oral hypoglycemic drugs; Z79.899 Other long term (current) drug therapy
CPT/HCPCS: 0241U; 36415; 36600; 71045; 71250; 80048; 80053; 80076; 80307; 82040; 82803; 82947; 83036; 83605; 83735; 83880; 84100; 84484; 85025; 85610; 87040; 87070; 87205; 90686; 93005; 94002; 94003; 94640; 94660; 94799; 97116; 97162; 97530; 99285; C1758; J0456; J0696; J1170; J1650; J1940; J2930; J3010; J3475

== ENCOUNTER 2022-06-29 17:46 | Emergency (ER) | payer OTHER, SELFPAY ==
--- NOTE | ~2022-06-29 | US_ITS ---
EXAMINATION: US VENOUS ULTRASOUND WITH DOPPLER LOWER EXTREMITY, RIGHT CLINICAL INFORMATION: Swelling and pain COMPARISON: None TECHNIQUE: Ultrasound of the deep veins is performed from the hip to the calf with compression sonography and color and pulse Doppler assessment. Spectral analysis with color-flow imaging is performed. FINDINGS: There is normal venous compression and respiratory variation and augmented flow. The visualized common femoral vein, superficial femoral vein, profunda femoral vein, popliteal vein, and the trifurcation region shows no evidence of deep venous thrombosis. There is no significant popliteal fossa cyst. If the patient's symptoms persist, followup ultrasound in 5 days 7 days might be of value to exclude proximal propagation from a non-visualized calf vein. US/US venous duplex LE RT IMPRESSION: No DVT demonstrated in the right lower extremity.
[2022-06-29 18:10] VITALS: BP 129/81; BP 148/78; PULSE 109; PULSE 90; RESP 20; TEMP 36.8; O2SAT 96; O2SAT 97; BMI 62.1
--- NOTE | 2022-06-29 18:29 | ED_ITS ---
HPI - Extremity Problem General Chief complaint: Extremity Problem Stated complaint: R leg pain/swelling x 5 days per EMS Time Seen by Provider: 06/29/22 18:19 Source: patient Mode of arrival: ambulatory Limitations: no limitations History of Present Illness HPI Narrative: Patient comes to the emergency room complaining of right lower extremity pain, swelling, and erythema that was noted this morning. Patient is here chills. Patient denies being on blood thinners. Related Data Home Medications Medication Instructions Recorded Confirmed fluticasone 500 mcg-salmeterol 50 1 puff inhalation BID 04/06/22 04/06/22 mcg/dose blistr powdr for inhalation (Advair Diskus) hydrochlorothiazide 25 mg tablet 1 tab PO DAILY 04/06/22 04/06/22 Previous Rx's Medication Instructions Recorded acetaminophen 650 mg 650 mg PO Q8H PRN pain 30 days #90 08/07/21 tablet,extended release (Tylenol 8 tabs Hour) lidocaine 5 % topical patch 1 patch topical DAILY 30 days #30 11/20/21 ea metformin 500 mg tablet 500 mg PO BID 90 days #180 tabs 11/20/21 sennosides 8.6 mg tablet (Senna 8.6 mg PO BID PRN constipation 90 11/20/21 Lax) days #180 tabs thiamine HCl (vitamin B1) 100 mg 100 mg PO DAILY 90 days #90 tabs 11/20/21 tablet ipratropium 20 mcg-albuterol 100 1 puff inhalation QID #4 grams 01/02/22 mcg/actuation mist for inhalation (Combivent Respimat) adult diapers pull-ups #200 ea 01/23/22 underpads (Bed Underpads) #40 ea 01/23/22 wipes #200 ea 01/23/22 nebulizers (AeroEclipse II #1 ea 02/01/22 Nebulizer) fluticasone propionate 50 1 spray intranasal DAILY 30 days 02/21/22 mcg/actuation nasal #16 grams spray,suspension (Flonase Allergy Relief) albuterol sulfate 90 mcg/actuation 2 puff PO Q6H PRN wheezing #8.5 03/05/22 aerosol inhaler (ProAir HFA) grams albuterol sulfate 2.5 mg/3 mL 2.5 mg (3 mL) inhalation Q4-6H PRN 04/06/22 (0.083 %) solution for nebulization for wheezing 30 days #75 mL lisinopril 10 mg tablet 10 mg PO DAILY #30 tabs 04/16/22 prednisone 10 mg tablet See Taper PO DAILY #18 tabs 04/16/22 spironolactone 25 mg tablet 25 mg PO DAILY #30 tabs 04/16/22 amlodipine 10 mg tablet 10 mg PO DAILY 90 days #90 tabs 04/19/22 hydralazine 10 mg tablet 10 mg PO BID 90 days #180 tabs 04/19/22 atorvastatin 80 mg tablet 80 mg PO BEDTIME 90 days #90 tabs 05/18/22 aspirin 81 mg tablet,delayed 81 mg PO DAILY 90 days #90 tabs 05/19/22 release verapamil 120 mg tablet 120 mg PO BID #180 tabs 05/24/22 cholecalciferol (vitamin D3) 50 50 mcg PO DAILY 90 days #90 caps 06/13/22 mcg (2,000 unit) capsule furosemide 20 mg tablet 20 mg PO QAM #90 tabs 06/27/22 cephalexin 500 mg capsule 500 mg PO BID #14 caps 06/29/22 doxycycline hyclate 100 mg tablet 100 mg PO BID #14 tabs 06/29/22 Allergies Allergy/AdvReac Type Severity Reaction Status Date / Time No Known Allergies Allergy Verified 12/27/21 14:13 Review of Systems Review of Systems: Constitutional : No Weight loss, No Fever, No Chills, No N ight Sweats, No Fatigue, No Malaise ENT/Mouth : No Hearing loss, No Ear Pain, No Nasal Congestion, No Sinus Pain, No Hoarseness, No sore throat, No Rhinorrhea, No Swallowing Difficulty Eyes: No Eye Pain, No Swelling, No Redness, No Foreign Body, No Discharge, No Vision Changes Cardiovascular : No Chest Pain, No SOB, No Dyspnea on Exertion, No Orthopnea, No Edema, No Palpitations Respiratory : No Cough, No Sputum, No Wheezing, No Smoke Exposure, No Dyspnea Gastrointestinal : No Nausea, No Vomiting, No Diarrhea, No Constipation, No abdominal Pain, No Hematochezia, No Melena Genitourinary : no irregular bleeding, No Dysuria, No Urinary Frequency, No Hematuria, No Urinary Incontinence, No Urgency, No Flank Pain, No Urinary Flow Changes, No Hesitancy Musculoskeletal : No joint pain, No Myalgias, No Joint Swelling Skin : Complaining of right lower extremity mild erythema, swelling and pain Neuro : No Weakness, No Numbness, No Paresthesias, No Loss of Consciousness, No Dizziness, No Headache Psych : No Anxiety/Panic, No Depression, No SI/HI/AH/VH, No Social Issues, Heme/Lymph: No Bruising, No Bleeding,No Lymphadenopathy Endocrine : No Polyuria, No Polydipsia, No Temperature Intolerance [facility] Past Medical History Medical History Cerebrovascular accident involving posterior circulation Cocaine use disorder, mild, in sustained remission Congestive heart failure COPD (chronic obstructive pulmonary disease) Diabetes mellitus Diastolic CHF Essential hypertension Mixed incontinence urge and stress Moderate asthma Morbid obesity Obesity Obesity hypoventilation syndrome Obstructive sleep apnea TAURUS (obstructive sleep apnea) Oxygen dependent Redness of left eye Surgical History History of cholecystectomy History of cholecystectomy History of open reduction and internal fixation (ORIF) procedure History of open reduction and internal fixation (ORIF) procedure History of tubal ligation History of tubal ligation Family History Family History Father Medical history unknown Mother Diabetes Hypertension Father Medical history unknown Mother Hypertension Diabetes Other Substance use disorder Social History Social History Household Members: Spouse Housing: Apartment Do you presently have visiting nurse or other home services: Yes Alcohol intake: never Patient Tobacco Use Status: Former Tobacco user Tobacco use type: Cigarette Cigarette Packs Per Day: 0.75 Cigarettes Per Day: 15.0 Years Smoked: 31 years Smoked in Last 30 Days: No e-Cigarette/Vaping Use: Never Used Second Hand Smoke Exposure: Yes Use of substances other than those prescribed or required for medical reasons: No Substance Use Type: Crack/Cocaine Advance Directives: Yes Advance Directives on File: Yes Advance Directives Date on File: 08/28/21 Patient : No service: No Current occupational status: disabled Cognitive needs: Yes (walker/wheelchair/cane) Hearing needs: No Vision needs: Yes Physical Exam Vital Signs: Vital Signs: Last Vital Signs Temp 98.1 F 06/29/22 19: Pulse 92 06/29/22 19:22 Resp 16 01/20/23 19:22 BP 129/78 06/29/22 19:22 Pulse Ox 98 06/29/22 19:22 O2 Del Method 06/29/22 19:22 Oxygen Flow Rate 2 06/29/22 18:10 BMI result Body Mass Index 62.1 Const: Other: Appearance: Alert. Oriented X3. No acute distress. Eyes: Pupils equal, round and reactive to light. ENT: Pharynx normal. Neck: Normal inspection. Neck supple. No lymph nodes noted. No crepitus CVS: Normal heart rate and rhythm. Pulses normal. Normal S1 and S2 Respiratory: No respiratory distress. Breath sounds normal. No Wheezing. No rales Abdomen: Soft and nontender. No rigidity. No distention. Skin: Skin warm and dry. Normal skin color. Normal skin turgor. Extremities: Both extremities look around in size, no pitting edema, legs are voluminous due to patient's body habitus, there is mild erythema present in the dorsum of the right foot extending to below the right knee, no calf tenderness Neuro: Oriented X 3. No motor deficit. No sensory deficit. Moving all extremities. No slurred speech. CN 2 through 12 grossly intact Psych: calm, cooperative, normal affect Course Course Course Narrative: -patient complaining of new onset right lower extremity pain, swelling -patient is not on blood thinners -this is likely cellulitis versus DVT -labs and ultrasound pending Medical Decision Making Medical Decision Making [facility] Narrative: White blood cell count within normal limits Ultrasound does not show DVTs Patient will start Keflex and cephalexin for cellulitis. Differential Diagnosis Differential Diagnoses: The differential diagnosis associated with the presentation includes (Lower extremities his eyes, DVT) Lab Data [facility] Lab Attestation statement: I reviewed the patient's lab results. 06/29/22 19:28 06/29/22 19:28 Labs: Lab Results 06/29/22 06/29/22 06/29/22 Range/Units 19:28 19: 19:28 WBC 8.6 (4.8-10.8) X10*3/uL RBC 4.27 (4.20-5.50) X10*6/uL Hgb 11.5 L (12.0-16.0) g/dl Hct 36.7 L (37.0-47.0) % MCV 85.9 (80.0-98.0) fL MCH 26.9 L (27.0-33.0) pg MCHC 31.3 (31.0-35.0) g/dl RDW 14.5 (11.0-16.0) % Plt Count 285 (160-400) X10*3/uL MPV 9.3 L (9.4-12.3) fL Immature Gran % (Auto) 0.2 (0.0-0.4) % Neut % (Auto) 66.3 (45-73) % Lymph % (Auto) 20.7 (20-40) % [place] % (Auto) 8.1 (2-11) % Eos % (Auto) 4.2 H (0-4) % Baso % (Auto) 0.5 (0-2) % Lymph # (Auto) 1.8 (1.2-4.9) X10*3/uL [place] # (Auto) 0.7 (0.1-1.2) X10*3/uL Eos # (Auto) 0.4 (0.0-0.4) X10*3/uL Baso # (Auto) 0.0 (0.0-0.2) X10*3/uL Abs Immat Gran (auto) 0.02 (0.00-0.03) X10*3/uL Absolute Neuts (auto) 5.7 (2.0-8.3) x10*3/uL Absolute Nucleated RBC 0.000 (0.0-0.012) X10*3/uL Nucleated RBC % (auto) 0.0 (0.0-0.2) /100WBC Sodium 142 (135-145) mmol/L Potassium 3.9 (3.3-5.1) mmol/L Chloride 92 L (96-108) mmol/L Carbon Dioxide 41 H* (22-29) mmol/L Anion Gap 13 (12-20) BUN 21 H (9-16) mg/dL Creatinine 0.94 (0.5-1.4) mg/dL Estim Creat Clear Calc 84.4 Estimated GFR > 60 Random Glucose 248 H (60-115) mg/dL Calcium 9.2 (8.4-10.2) mg/dL B-Natriuretic Peptide 23 (<100) pg/mL Radiology Impression Discussion of test interpretation with radiology: I have reviewed the radiologist's reading. Radiologist Impression: FINDINGS: There is normal venous compression and respiratory variation and augmented flow. The visualized common femoral vein, superficial femoral vein, profunda femoral vein, popliteal vein, and the trifurcation region shows no evidence of deep venous thrombosis. ? There is no significant popliteal fossa cyst. If the patient's symptoms persist, followup ultrasound in 5 days 7 days might be of value to exclude proximal propagation from a non-visualized calf vein. US/US venous duplex LE RT IMPRESSION: No DVT demonstrated in the right lower extremity. Discharge Plan Discharge Clinical Impression: Cellulitis of lower leg Patient Disposition: Home, Self-Care Instructions: Cellulitis (ED) Additional Instructions: Please follow-up with your primary care physician tomorrow. If you have any worsening or new symptoms, please return to the emergency room or call 911 Prescriptions: New cephalexin 500 mg capsule 500 mg PO BID Qty: 14 0RF doxycycline hyclate 100 mg tablet 100 mg PO BID Qty: 14 0RF No Action lidocaine 5 % adhesive patch,medicated 1 patch topical DAILY 30 Days Qty: 30 0RF Rx Instructions: leave on most painful area for up to 12 hrs metformin 500 mg tablet 500 mg PO BID 90 Days Qty: 180 3RF thiamine HCl (vitamin B1) 100 mg tablet 100 mg PO DAILY 90 Days Qty: 90 1RF sennosides [Senna Lax] 8.6 mg tablet 8.6 mg PO BID PRN (Reason: constipation) 90 Days Qty: 180 1RF Combivent Respimat 20-100 mcg/actuation mist 1 puff INHALATION QID Qty: 4 1RF (DME) adult diapers pull-ups XXL See Rx Instructions .Route .MEDSUPPLY Qty: 200 11RF Rx Instructions: As directed (DME) underpads [Bed Underpads] Pad See Rx Instructions .Route Qty: 40 6RF Rx Instructions: As directed (DME) wipes standard See Rx Instructions .Route .MEDSUPPLY Qty: 200 11RF Rx Instructions: As directed (DME) AeroEclipse II Nebulizer Misc See Rx Instructions .Route Qty: 1 0RF Rx Instructions: As directed fluticasone propionate [Flonase Allergy Relief] 50 mcg/actuation spray,suspension 1 spray intranasal DAILY 30 Days Qty: 16 2RF Rx Instructions: administer into each nostril albuterol sulfate [ProAir HFA] 90 mcg/actuation HFA aerosol inhaler 2 puff PO Q6H PRN (Reason: wheezing) Qty: 8.5 1RF albuterol sulfate 2.5 mg /3 mL (0.083 %) solution for nebulization 2.5 mg inhalation Q4-6H PRN (Reason: for wheezing) 30 Days Qty: 75 3RF amlodipine 10 mg tablet 10 mg PO DAILY 90 Days Qty: 90 1RF hydralazine 10 mg tablet 10 mg PO BID 90 Days Qty: 180 1RF Protocol: Hold for SBP< HOLD for SBP < : 90 atorvastatin 80 mg tablet 80 mg PO BEDTIME 90 Days Qty: 90 2RF aspirin 81 mg tablet,delayed release (DR/EC) 81 mg PO DAILY 90 Days Qty: 90 0RF verapamil 120 mg tablet 120 mg PO BID Qty: 180 1RF Protocol: Hold for SBP/HR < HOLD for SBP < : 90 HOLD for HR < : 60 cholecalciferol (vitamin D3) 50 mcg (2,000 unit) capsule 50 mcg PO DAILY 90 Days Qty: 90 1RF furosemide 20 mg tablet 20 mg PO QAM Qty: 90 2RF fluticasone propion-salmeterol [Advair Diskus] 500-50 mcg/dose blister with device 1 puff INHALATION BID hydrochlorothiazide 25 mg tablet 1 tab PO DAILY prednisone 10 mg Tablet See Taper PO DAILY Qty: 18 0RF Taper: Prednisone 30 mg daily for 3 Days and 0 Hour 20 mg daily for 3 Days and 0 Hour 10 mg daily for 3 Days and 0 Hour spironolactone 25 mg Tablet 25 mg PO DAILY Qty: 30 0RF Protocol: Hold for SBP< HOLD for SBP < : 90 lisinopril 10 mg Tablet 10 mg PO DAILY Qty: 30 0RF Protocol: Hold for SBP< HOLD for SBP < : 90 acetaminophen [Tylenol 8 Hour] 650 mg tablet extended release 650 mg PO Q8H PRN (Reason: pain) 30 Days Qty: 90 11RF
[2022-06-29 19:22] VITALS: BP 129/78; PULSE 92; RESP 16; TEMP 36.7; O2SAT 98
[2022-06-29 19:33] LABS: MANUAL DIFF FLAG NO
[2022-06-29 19:34] LABS: Basophils Percent Auto 0.5 % (0-2); Eosinophils Absolute Auto 0.4 X10*3/uL (0.0-0.4); Eosinophils Percent Auto 4.2 % (0-4); Hematocrit 36.7 % (37.0-47.0); Hemoglobin 11.5 g/dl (12.0-16.0); Imm Gran Abs Auto 0.02 X10*3/uL (0.00-0.03); Imm Gran Pct Auto 0.2 % (0.0-0.4); Lymphocytes Absolute Auto 1.8 X10*3/uL (1.2-4.9); Lymphocytes Percent Auto 20.7 % (20-40); Mean Corpuscular HGB Conc 31.3 g/dl (31.0-35.0); Mean Corpuscular Hemoglobin 26.9 pg (27.0-33.0); Mean Corpuscular Volume 85.9 fL (80.0-98.0); Mean Platelet Volume 9.3 fL (9.4-12.3); Monocytes Absolute Auto 0.7 X10*3/uL (0.1-1.2); Monocytes Percent Auto 8.1 % (2-11); Neutrophils Absolute Auto 5.7 x10*3/uL (2.0-8.3); Neutrophils Percent Auto 66.3 % (45-73); Platelet Count 285 X10*3/uL (160-400); Red Blood Count 4.27 X10*6/uL (4.20-5.50); Red Cell Distribution Width 14.5 % (11.0-16.0); White Blood Count 8.6 X10*3/uL (4.8-10.8)
--- NOTE | 2022-06-29 19:48 | PC.NURSE ---
Pt has limted bed mobility. c/o increased swelling BLEs. On 3L NC at baseline and remains so in ED. plus 3 pitting edema to shins gianni. LS CTA. unlabored at rest in bed. Palable pedal pulses. No warmth/reddness noted. good skin integrity on BLE.
[2022-06-29 19:51] LABS: Anion Gap 13 (12-20); Blood Urea Nitrogen 21 mg/dL (9-16); Calcium 9.2 mg/dL (8.4-10.2); Carbon Dioxide 41 mmol/L (22-29); Chloride 92 mmol/L (96-108); Creatinine Clr Calc Pharmacy 84.4; Estimated Glomerular Filt Rate > 60; Glucose Random 248 mg/dL (60-115); Potassium 3.9 mmol/L (3.3-5.1); Sodium 142 mmol/L (135-145)
[2022-06-29 19:55] LABS: B Type Natriuretic Peptide 23 pg/mL (<100)
--- NOTE | 2022-06-29 19:55 | MHC.EDTECH ---
2000 rounding done ,patient blood draw done and send to lab ,vitals sign taken ,patient in room .
== END 2022-06-29 22:14 | disposition home or self-care (01) ==
PROVIDERS: Emergency Provider Emergency Medicine; PCP Internal Medicine
DX: L03.115 Cellulitis of right lower limb (principal); M79.89 Other specified soft tissue disorders
CPT/HCPCS: 36415; 80048; 83880; 85025; 93971; 99284

== ENCOUNTER → 2022-07-24 08:23 | Outpatient (BNVA) | payer OTHER, SELFPAY | PROVIDERS: PCP Internal Medicine; Visit Provider Internal Medicine Pulmonary Disease | DX: J44.9 Chronic obstructive pulmonary disease, unspecified (principal); E66.2 Morbid (severe) obesity with alveolar hypoventilation; Z68.44 Body mass index [BMI] 60.0-69.9, adult; Z79.899 Other long term (current) drug therapy; Z99.81 Dependence on supplemental oxygen | CPT/HCPCS: 99212 ==

== ENCOUNTER → 2022-09-13 19:30 | Outpatient (REF) | payer OTHER, SELFPAY | LOC: HO.SL 19:30 | PROVIDERS: Visit Provider Internal Medicine Pulmonary Disease | DX: G47.33 Obstructive sleep apnea (adult) (pediatric) (principal) | CPT/HCPCS: 95811 ==

== ENCOUNTER 2022-10-07 00:24 | Inpatient (IN) | payer OTHER, SELFPAY ==
[2022-10-07] VITALS (13 sets, daily range): BP systolic 103–150; BP diastolic 67–86; PULSE 93–125; RESP 14–20; TEMP 36.4–37.2; O2SAT 77–100; BMI 65.0; BMI 64.1
--- NOTE | ~2022-10-07 | XR_ITS ---
EXAMINATION: XR CHEST CLINICAL INFORMATION: Short of breath. History of COPD. COMPARISON: 04/07/2022 TECHNIQUE: Frontal view of the chest was obtained. FINDINGS: Cardiac leads overlie the chest. The lungs are well expanded. Bronchial wall thickening. This is increased from prior. No pleural effusion or pneumothorax. No dense consolidation. The cardiomediastinal silhouette is unchanged. XR/XR chest 1V IMPRESSION: No dense consolidation. Bronchial wall thickening can be seen with a small airways process such as asthma or atypical/viral infection.
--- NOTE | 2022-10-07 00:37 | ECG_ITS ---
Test Reason : SOB Blood Pressure : / mmHG Vent. Rate : 100 BPM Atrial Rate : 100 BPM P-R Int : 122 ms QRS Dur : 088 ms QT Int : 376 ms P-R-T Axes : 055 020 076 degrees QTc Int : 485 ms Sinus rhythm with Premature atrial complexes Low voltage QRS Borderline ECG When compared with ECG of 06-APR-2022 13:54, Premature atrial complexes are now Present Non-specific change in ST segment in Inferior leads Referred By: Stephanie Serrano Electronically Signed By:Pawel Tsang
--- NOTE | 2022-10-07 00:39 | ED.SOB ---
HPI - SOB/Dyspnea General Chief Complaint: Dyspnea Stated Complaint: Difficulty Breathing Time Seen by Provider: 10/07/22 00:27 Source: patient and EMS Mode of arrival: EMS Limitations: no limitations History of Present Illness HPI Narrative: Patient comes to the emergency room complaining of shortness of breath. Patient states that she was sleeping with her oxygen on, patient states she uses 2 L at all times. Patient was feeling very short of breath. Patient gave herself to nebulization treatments and increase her oxygen to 3 L. 911 was called. When EMS arrived, they found the patient tachypneic, saturating in the high 70s on 3 L of oxygen. Patient received an additional DuoNeb and was switched to a non-rebreather. On arrival to the emergency room, patient feeling better. Related Data Home Medications Medication Instructions Recorded Confirmed fluticasone 500 mcg-salmeterol 50 1 puff inhalation BID 04/06/22 07/24/22 mcg/dose blistr powdr for inhalation (Advair Diskus) Previous Rx's Medication Instructions Recorded lidocaine 5 % topical patch 1 patch topical DAILY 30 days #30 11/20/21 ea sennosides 8.6 mg tablet (Senna 8.6 mg PO BID PRN constipation 90 11/20/21 Lax) days #180 tabs thiamine HCl (vitamin B1) 100 mg 100 mg PO DAILY 90 days #90 tabs 11/20/21 tablet ipratropium 20 mcg-albuterol 100 1 puff inhalation QID #4 grams 01/02/22 mcg/actuation mist for inhalation (Combivent Respimat) adult diapers pull-ups #200 ea 01/23/22 underpads (Bed Underpads) #40 ea 01/23/22 wipes #200 ea 01/23/22 nebulizers (AeroEclipse II #1 ea 02/01/22 Nebulizer) fluticasone propionate 50 1 spray intranasal DAILY 30 days 02/21/22 mcg/actuation nasal #16 grams spray,suspension (Flonase Allergy Relief) lisinopril 10 mg tablet 10 mg PO DAILY #30 tabs 04/16/22 spironolactone 25 mg tablet 25 mg PO DAILY #30 tabs 04/16/22 hydralazine 10 mg tablet 10 mg PO BID 90 days #180 tabs 04/19/22 atorvastatin 80 mg tablet 80 mg PO BEDTIME 90 days #90 tabs 05/18/22 aspirin 81 mg tablet,delayed 81 mg PO DAILY 90 days #90 tabs 05/19/22 release verapamil 120 mg tablet 120 mg PO BID #180 tabs 05/24/22 cholecalciferol (vitamin D3) 50 50 mcg PO DAILY 90 days #90 caps 06/13/22 mcg (2,000 unit) capsule furosemide 20 mg tablet 20 mg PO QAM #90 tabs 06/27/22 albuterol sulfate 90 mcg/actuation 2 puff PO Q6H PRN wheezing #8.5 07/01/22 aerosol inhaler (ProAir HFA) grams doxycycline hyclate 100 mg tablet 100 mg PO BID 10 days #20 tabs 07/24/22 metformin 1,000 mg tablet 1,000 mg PO BID #180 tabs 07/24/22 albuterol sulfate 2.5 mg/3 mL 2.5 mg (3 mL) inhalation Q4-6H PRN 08/13/22 (0.083 %) solution for nebulization for wheezing 30 days #75 mL acetaminophen 650 mg 650 mg PO Q8H PRN pain 30 days #90 08/19/22 tablet,extended release (Tylenol 8 tabs Hour) dulaglutide 0.75 mg/0.5 mL 0.75 mg (0.5 mL) subcut QWEEK 90 08/28/22 subcutaneous pen injector days #6.5 mL (Trulicity) hydrochlorothiazide 25 mg tablet 25 mg PO DAILY 90 days #90 tabs 09/26/22 amlodipine 10 mg tablet 10 mg PO DAILY 90 days #90 tabs 09/27/22 Allergies Allergy/AdvReac Type Severity Reaction Status Date / Time No Known Allergies Allergy Verified 07/24/22 10:08 Review of Systems Review of Systems: Constitutional : No Weight loss, No Fever, No Chills, No Night Sweats, No Fatigue, No Malaise ENT/Mouth : No Hearing loss, No Ear Pain, No Nasal Congestion, No Sinus Pain, No Hoarseness, No sore throat, No Rhinorrhea, No Swallowing Difficulty Eyes: No Eye Pain, No Swelling, No Redness, No Foreign Body, No Discharge, No Vision Changes Cardiovascular : No Chest Pain, No SOB, No Dyspnea on Exertion, No Orthopnea, No Edema, No Palpitations Respiratory : Complaining of increased coughing, wheezing, severe shortness of breath prior to arrival Gastrointestinal : No Nausea, No Vomiting, No Diarrhea, No Constipation, No abdominal Pain, No Hematochezia, No Melena Genitourinary : no irregular bleeding, No Dysuria, No Urinary Frequency, No Hematuria, No Urinary Incontinence, No Urgency, No Flank Pain, No Urinary Flow Changes, No Hesitancy Musculoskeletal : No joint pain, No Myalgias, No Joint Swelling Skin : No Skin Lesions, No rash Neuro : No Weakness, No Numbness, No Paresthesias, No Loss of Consciousness, No Dizziness, No Headache Psych : No Anxiety/Panic, No Depression, No SI/HI/AH/VH, No Social Issues, Heme/Lymph: No Bruising, No Bleeding,No Lymphadenopathy Endocrine : No Polyuria, No Polydipsia, No Temperature Intolerance [facility] Past Medical History Medical History Cerebrovascular accident involving posterior circulation Cocaine use disorder, mild, in sustained remission Congestive heart failure COPD (chronic obstructive pulmonary disease) Diabetes mellitus Diastolic CHF Essential hypertension Mixed incontinence urge and stress Moderate asthma Morbid obesity Obesity Obesity hypoventilation syndrome Obstructive sleep apnea TAURUS (obstructive sleep apnea) Oxygen dependent Redness of left eye Surgical History History of cholecystectomy History of cholecystectomy History of open reduction and internal fixation (ORIF) procedure History of open reduction and internal fixation (ORIF) procedure History of tubal ligation History of tubal ligation Family History Family History Father Medical history unknown Mother Diabetes Hypertension Father Medical history unknown Mother Hypertension Diabetes Other Substance use disorder Social History Social History Household Members: Spouse Housing: Apartment Do you presently have visiting nurse or other home services: Yes Alcohol intake: never Patient Tobacco Use Status: Former Tobacco user Tobacco use type: Cigarette Cigarette Packs Per Day: 0.75 Cigarettes Per Day: 15.0 Years Smoked: 31 years e-Cigarette/Vaping Use: Never Used Second Hand Smoke Exposure: Yes Substance Use Type: Crack/Cocaine Advance Directives: Yes Advance Directives on File: Yes Advance Directives Date on File: 03/21/22 service: No Current occupational status: disabled Cognitive needs: Yes (walker/wheelchair/cane) Hearing needs: No Vision needs: Yes Physical Exam Vital Signs: Vital Signs: Last Vital Signs Temp 98.2 F 10/07/22 00:30 Pulse 93 10/07/22 02:33 Resp 19 10/07/22 02:33 BP 138/83 10/07/22 02:33 Pulse Ox 91 L 10/07/22 02:33 O2 Del Method Nasal Cannula 10/07/22 02:33 O2 Flow Rate 3 10/07/22 02:33 BMI result Body Mass Index 65.0 Const: Other: Appearance: Alert. Oriented X3. No acute distress. Eyes: Pupils equal, round and reactive to light. ENT: Pharynx normal. Neck: Normal inspection. Neck supple. No lymph nodes noted. No crepitus CVS: Normal heart rate and rhythm. Pulses normal. Normal S1 and S2 Respiratory: Moderate respiratory distress, diffuse wheezing Abdomen: Soft and nontender. No rigidity. No distention. Skin: Skin warm and dry. Normal skin color. Normal skin turgor. Extremities: No lower extremity edema. No Lacerations. No Rash Neuro: Oriented X 3. No motor deficit. No sensory deficit. Moving all extremities. No slurred speech. CN 2 through 12 grossly intact Psych: calm, cooperative, normal affect Course Course Course Narrative: -on the patient's labs and imaging pending. Medications Administered Discontinued Medications Generic Name Dose Route Start Last Admin Trade Name Freq PRN Reason Stop Dose Admin Albuterol Sulfate 10 mg 10/07/22 00:41 10/07/22 01:07 Albuterol Sulfate (0.083%) 2.5 Mg/3 Ml Vial.Neb INHALE 10/07/22 00:42 10 mg ONCE ONE Administration Magnesium Sulfate 2 gm in 50 mls @ 25 mls/hr 10/07/22 00:41 10/07/22 02:30 Magnesium Sulfate/H2o IV 10/07/22 02:40 25 mls/hr ONCE ONE Administration Methylprednisolone Sodium Succinate 125 mg 10/07/22 00:41 10/07/22 02:27 Methylprednisolone Sod Succ 125 Mg/2 Ml Vial IVPUSH 10/07/22 00:42 125 mg ONCE ONE Administration Medical Decision Making Medical Decision Making MDM Narrative: -patient's white blood cell count is elevated, patient did have a dose of steroids before blood was drawn. -like acid 2.3, likely secondary to multiple nebulization treatments. -patient's blood pressure stable, no fever, sepsis is not suspected. -patient giving IV ceftriaxone and azithromycin. -discussed the patient with Dr. Diaz, patient being admitted Differential Diagnosis Differential Diagnoses: The differential diagnosis associated with the presentation includes (COPD, asthma) Admission/Observation Consideration of admission/observation: Escalation of care including admission/observation considered Consult Healthcare Provider Management of the patient was discussed with: Hospitalist Lab Data [facility] Lab Attestation statement: I reviewed the patient's lab results. 10/07/22 02:22 10/07/22 01:27 Labs: Lab Results 10/07/22 10/07/22 10/07/22 Range/Units 01:26 01:26 01:27 WBC (4.8-10.8) X10*3/uL RBC (4.20-5.50) X10*6/uL Hgb (12.0-16.0) g/dl Hct (37.0-47.0) % MCV (80.0-98.0) fL MCH (27.0-33.0) pg MCHC (31.0-35.0) g/dl RDW (11.0-16.0) % Plt Count (160-400) X10*3/uL MPV (9.4-12.3) fL Immature Gran % (Auto) (0.0-0.4) % Neut % (Auto) (45-73) % Lymph % (Auto) (20-40) % [place] % (Auto) (2-11) % Eos % (Auto) (0-4) % Baso % (Auto) (0-2) % Lymph # (Auto) (1.2-4.9) X10*3/uL [place] # (Auto) (0.1-1.2) X10*3/uL Eos # (Auto) (0.0-0.4) X10*3/uL Baso # (Auto) (0.0-0.2) X10*3/uL Abs Immat Gran (auto) (0.00-0.03) X10*3/uL Absolute Neuts (auto) (2.0-8.3) x10*3/uL Absolute Nucleated RBC (0.0-0.012) X10*3/uL Nucleated RBC % (auto) (0.0-0.2) /100WBC PT 10.3 (10.0-13.1) SEC INR 0.9 (0.9-1.1) VBG pH (7.32-7.43) VBG pCO2 mmHg VBG pO2 mmHg VBG HCO3 (22-26) mmol/L VBG O2 Saturation % VBG Base Excess mmol/L Lactic Acid 2.3 H* (0.5-2.0) mmol/L Troponin I High Sens (<3.5-17.0) ng/L B-Natriuretic Peptide (<100) pg/mL COVID-19 (MICHEL) Negative (Negative) COVID-19 Clin Com See Note 10/07/22 10/07/22 10/07/22 Range/Units 01:27 01:33 02:18 WBC (4.8-10.8) X10*3/uL RBC (4.20-5.50) X10*6/uL Hgb (12.0-16.0) g/dl Hct (37.0-47.0) % MCV (80.0-98.0) fL MCH (27.0-33.0) pg MCHC (31.0-35.0) g/dl RDW (11.0-16.0) % Plt Count (160-400) X10*3/uL MPV (9.4-12.3) fL Immature Gran % (Auto) (0.0-0.4) % Neut % (Auto) (45-73) % Lymph % (Auto) (20-40) % [place] % (Auto) (2-11) % Eos % (Auto) (0-4) % Baso % (Auto) (0-2) % Lymph # (Auto) (1.2-4.9) X10*3/uL [place] # (Auto) (0.1-1.2) X10*3/uL Eos # (Auto) (0.0-0.4) X10*3/uL Baso # (Auto) (0.0-0.2) X10*3/uL Abs Immat Gran (auto) (0.00-0.03) X10*3/uL Absolute Neuts (auto) (2.0-8.3) x10*3/uL Absolute Nucleated RBC (0.0-0.012) X10*3/uL Nucleated RBC % (auto) (0.0-0.2) /100WBC PT (10.0-13.1) SEC INR (0.9-1.1) VBG pH 7.40 (7.32-7.43) VBG pCO2 78 mmHg VBG pO2 171 mmHg VBG HCO3 49 H (22-26) mmol/L VBG O2 Saturation 100.0 % VBG Base Excess 20.0 mmol/L Lactic Acid (0.5-2.0) mmol/L Troponin I High Sens 10.7 (<3.5-17.0) ng/L B-Natriuretic Peptide 41 (<100) pg/mL COVID-19 (MICHEL) (Negative) COVID-19 Clin Com 10/07/22 Range/Units 02:22 WBC 12.0 H (4.8-10.8) X10*3/uL RBC 4.07 L (4.20-5.50) X10*6/uL Hgb 10.4 L (12.0-16.0) g/dl Hct 35.6 L (37.0-47.0) % MCV 87.5 (80.0-98.0) fL MCH 25.6 L (27.0-33.0) pg MCHC 29.2 L (31.0-35.0) g/dl RDW 14.9 (11.0-16.0) % Plt Count 317 (160-400) X10*3/uL MPV 9.2 L (9.4-12.3) fL Immature Gran % (Auto) 0.8 H (0.0-0.4) % Neut % (Auto) 79.0 H (45-73) % Lymph % (Auto) 12.5 L (20-40) % [place] % (Auto) 4.7 (2-11) % Eos % (Auto) 2.8 (0-4) % Baso % (Auto) 0.2 (0-2) % Lymph # (Auto) 1.5 (1.2-4.9) X10*3/uL [place] # (Auto) 0.6 (0.1-1.2) X10*3/uL Eos # (Auto) 0.3 (0.0-0.4) X10*3/uL Baso # (Auto) 0.0 (0.0-0.2) X10*3/uL Abs Immat Gran (auto) 0.10 H (0.00-0.03) X10*3/uL Absolute Neuts (auto) 9.5 H (2.0-8.3) x10*3/uL Absolute Nucleated RBC 0.020 H (0.0-0.012) X10*3/uL Nucleated RBC % (auto) 0.2 (0.0-0.2) /100WBC PT (10.0-13.1) SEC INR (0.9-1.1) VBG pH (7.32-7.43) VBG pCO2 mmHg VBG pO2 mmHg VBG HCO3 (22-26) mmol/L VBG O2 Saturation % VBG Base Excess mmol/L Lactic Acid (0.5-2.0) mmol/L Troponin I High Sens (<3.5-17.0) ng/L B-Natriuretic Peptide (<100) pg/mL COVID-19 (MICHEL) (Negative) COVID-19 Clin Com Independent Interpretation I performed an independent interpretation of an: Plain X-Ray Interpretation: Interpretation of chest x-ray: No pneumonia Radiology Impression Discussion of test interpretation with radiology: I have reviewed the radiologist's reading. Radiologist Impression: Cardiac leads overlie the chest. The lungs are well expanded. Bronchial wall thickening. This is increased from prior. No pleural effusion or pneumothorax. No dense consolidation. The cardiomediastinal silhouette is unchanged. XR/XR chest 1V IMPRESSION: No dense consolidation. Bronchial wall thickening can be seen with a small airways process such as asthma or atypical/viral infection. Critical Care Time Critical Care Time Critical Care Time: Yes Total Critical Care Time: 60 Attestation: I have personally provided critical care time. Time includes review of lab data, radiology results, discussion with consultants, and monitoring for potential decompensation. Intervention performed as documented. Discharge Plan Discharge Clinical Impression: COPD (chronic obstructive pulmonary disease) Patient Disposition: Admitted As Inpatient Prescriptions: No Action lidocaine 5 % adhesive patch,medicated 1 patch topical DAILY 30 Days Qty: 30 0RF Rx Instructions: leave on most painful area for up to 12 hrs thiamine HCl (vitamin B1) 100 mg tablet 100 mg PO DAILY 90 Days Qty: 90 1RF sennosides [Senna Lax] 8.6 mg tablet 8.6 mg PO BID PRN (Reason: constipation) 90 Days Qty: 180 1RF Combivent Respimat 20-100 mcg/actuation mist 1 puff INHALATION QID Qty: 4 1RF (DME) adult diapers pull-ups XXL See Rx Instructions .Route .MEDSUPPLY Qty: 200 11RF Rx Instructions: As directed (DME) underpads [Bed Underpads] Pad See Rx Instructions .Route Qty: 40 6RF Rx Instructions: As directed (DME) wipes standard See Rx Instructions .Route .MEDSUPPLY Qty: 200 11RF Rx Instructions: As directed (DME) AeroEclipse II Nebulizer Misc See Rx Instructions .Route Qty: 1 0RF Rx Instructions: As directed fluticasone propionate [Flonase Allergy Relief] 50 mcg/actuation spray,suspension 1 spray intranasal DAILY 30 Days Qty: 16 2RF Rx Instructions: administer into each nostril hydralazine 10 mg tablet 10 mg PO BID 90 Days Qty: 180 1RF Protocol: Hold for SBP< HOLD for SBP < : 90 atorvastatin 80 mg tablet 80 mg PO BEDTIME 90 Days Qty: 90 2RF aspirin 81 mg tablet,delayed release (DR/EC) 81 mg PO DAILY 90 Days Qty: 90 0RF verapamil 120 mg tablet 120 mg PO BID Qty: 180 1RF Protocol: Hold for SBP/HR < HOLD for SBP < : 90 HOLD for HR < : 60 cholecalciferol (vitamin D3) 50 mcg (2,000 unit) capsule 50 mcg PO DAILY 90 Days Qty: 90 1RF furosemide 20 mg tablet 20 mg PO QAM Qty: 90 2RF albuterol sulfate [ProAir HFA] 90 mcg/actuation HFA aerosol inhaler 2 puff PO Q6H PRN (Reason: wheezing) Qty: 8.5 1RF albuterol sulfate 2.5 mg /3 mL (0.083 %) solution for nebulization 2.5 mg inhalation Q4-6H PRN (Reason: for wheezing) 30 Days Qty: 75 3RF acetaminophen [Tylenol 8 Hour] 650 mg tablet extended release 650 mg PO Q8H PRN (Reason: pain) 30 Days Qty: 90 11RF Trulicity 0.75 mg/0.5 mL pen injector 0.75 mg subcut QWEEK 90 Days Qty: 6.5 1RF hydrochlorothiazide 25 mg tablet 25 mg PO DAILY 90 Days Qty: 90 1RF amlodipine 10 mg tablet 10 mg PO DAILY 90 Days Qty: 90 1RF fluticasone propion-salmeterol [Advair Diskus] 500-50 mcg/dose blister with device 1 puff INHALATION BID spironolactone 25 mg Tablet 25 mg PO DAILY Qty: 30 0RF Protocol: Hold for SBP< HOLD for SBP < : 90 lisinopril 10 mg Tablet 10 mg PO DAILY Qty: 30 0RF Protocol: Hold for SBP< HOLD for SBP < : 90 doxycycline hyclate 100 mg tablet 100 mg PO BID 10 Days Qty: 20 0RF metformin 1,000 mg tablet 1,000 mg PO BID Qty: 180 0RF
--- NOTE | 2022-10-07 01:00 | PC.NURSE ---
Pt A&Ox3, [place] speaking, reports increase SOB after waking up and no relief with two home tx. EMS placed Pt on non-rebreather mask O2 sat 99%, RR 19, lung sounds clear with little wheezing. Pt placed on bedside monitor. Pt denies any pain, CP or palpitation. Skin warm and intact, Pt incontinent of urine, incontinent care provided.
[2022-10-07] MEDS: Albuterol Sulfate (0.083%) 2.5 MG/3 ML VIAL.NEB 10 MG INHALE (01:07)
[2022-10-07 01:42] LABS: Venous Blood Gas Refer to POC result
[2022-10-07 01:42] LABS: VBG HCO3 49 mmol/L (22-26); VBG pCO2 78 mmHg; VBG pO2 171 mmHg
[2022-10-07 01:44] LABS: INTERNATIONAL NORM RATIO 0.9 (0.9-1.1); Prothrombin Time 10.3 SEC (10.0-13.1)
[2022-10-07 01:54] LABS: COVID-19 Test Negative (Negative); IDNOW Serial# 9DB6401D
[2022-10-07 02:02] LABS: B Type Natriuretic Peptide 41 pg/mL (<100)
[2022-10-07 02:07] LABS: Lactic Acid 2.3 mmol/L (0.5-2.0)
[2022-10-07] MEDS: methylPREDNISolone Sod Succ 125 MG/2 ML VIAL IVPUSH (02:27)
[2022-10-07] MEDS: Magnesium Sulfate/H2O 2 GM/50 ML PIGGYBACK IV (02:30)
[2022-10-07 02:33] LABS: Basophils Percent Auto 0.2 % (0-2); Eosinophils Absolute Auto 0.3 X10*3/uL (0.0-0.4); Eosinophils Percent Auto 2.8 % (0-4); Hematocrit 35.6 % (37.0-47.0); Hemoglobin 10.4 g/dl (12.0-16.0); Imm Gran Pct Auto 0.8 % (0.0-0.4); Lymphocytes Absolute Auto 1.5 X10*3/uL (1.2-4.9); Lymphocytes Percent Auto 12.5 % (20-40); Mean Corpuscular HGB Conc 29.2 g/dl (31.0-35.0); Mean Corpuscular Hemoglobin 25.6 pg (27.0-33.0); Mean Corpuscular Volume 87.5 fL (80.0-98.0); Mean Platelet Volume 9.2 fL (9.4-12.3); Monocytes Absolute Auto 0.6 X10*3/uL (0.1-1.2); Monocytes Percent Auto 4.7 % (2-11); NRBC Pct Auto 0.2 /100WBC (0.0-0.2); Neutrophils Absolute Auto 9.5 x10*3/uL (2.0-8.3); Platelet Count 317 X10*3/uL (160-400); Red Blood Count 4.07 X10*6/uL (4.20-5.50); Red Cell Distribution Width 14.9 % (11.0-16.0)
[2022-10-07 02:39] LABS: MANUAL DIFF FLAG NO
[2022-10-07 02:43] LABS: Troponin-I High Sensitivity 10.7 ng/L (<3.5-17.0)
[2022-10-07 02:56] LABS: Alanine Aminotransferase 12 U/L (0-31); Albumin Level 3.9 g/dL (3.5-5.0); Alkaline Phosphatase 86 U/L (39-117); Anion Gap 10 (12-20); Aspartate Amino Transferase 10 U/L (5-31); Bilirubin Direct 0.2 mg/dL (0.0-0.5); Bilirubin Total 0.4 mg/dL (0.0-1.0); Blood Urea Nitrogen 26 mg/dL (9-16); Calcium 9.4 mg/dL (8.4-10.2); Carbon Dioxide 49 mmol/L (22-29); Chloride 89 mmol/L (96-108); Creatinine Clr Calc Pharmacy 107.6; Estimated Glomerular Filt Rate > 60; Glucose Random 201 mg/dL (60-115); Sodium 144 mmol/L (135-145); Total Protein 6.9 g/dL (6.5-8.0)
--- NOTE | 2022-10-07 03:02 | PM.IMHP ---
History of Present Illness Date of Service: 10/07/22 Chief Complaint: Dyspnea This is a 62-year-old female with pertinent history of chronic hypercapnic hypoxemic respiratory failure due to COPD, morbid obesity, TAURUS, diastolic congestive heart failure, essential hypertension, ghu-mffpmhg-rsrnyhknf diabetes mellitus, mixed hyperlipidemia who presents to the emergency department for evaluation of dyspnea. Patient states it started on the day of presentation. She used uses baseline 2 L home oxygen. It was associated with wheezing and dry cough. Patient without symptom relief with her home inhaler use. When EMS arrived, patient was found to be hypoxemic in the 70s. She denies fever, chills, chest discomfort, palpitations, abdominal pain, nausea, vomiting, changes in urinary or bowel habits. In the emergency department, patient requiring 3 L supplemental oxygen Review of Systems Constitutional: Constitutional: Reports fatigue and Reports malaise Cardiovascular: Cardiovascular: Reports dyspnea on exertion Respiratory: Respiratory: Reports cough, Reports dyspnea on exertion and Reports wheezing Gastrointestinal: Gastrointestinal: Reports no additional gastrointestinal complaints Genitourinary: Genitourinary: Reports no additional female genitourinary complaints Endocrine: Endocrine: Reports fatigue Allergic/Immunologic: Allergic/Immunologic: Reports wheezing [facility] Medical History Cerebrovascular accident involving posterior circulation Cocaine use disorder, mild, in sustained remission Congestive heart failure COPD (chronic obstructive pulmonary disease) Diabetes mellitus Diastolic CHF Essential hypertension Mixed incontinence urge and stress Moderate asthma Morbid obesity Obesity Obesity hypoventilation syndrome Obstructive sleep apnea TAURUS (obstructive sleep apnea) Oxygen dependent Redness of left eye Family History Father Medical history unknown Mother Diabetes Hypertension Father Medical history unknown Mother Hypertension Diabetes Other Substance use disorder Surgical History History of cholecystectomy History of cholecystectomy History of open reduction and internal fixation (ORIF) procedure History of open reduction and internal fixation (ORIF) procedure History of tubal ligation History of tubal ligation Social History Household Members: Spouse Housing: Apartment Do you presently have visiting nurse or other home services: Yes Alcohol intake: never Patient Tobacco Use Status: Former Tobacco user Tobacco use type: Cigarette Cigarette Packs Per Day: 0.75 Cigarettes Per Day: 15.0 Years Smoked: 31 years e-Cigarette/Vaping Use: Never Used Second Hand Smoke Exposure: Yes Substance Use Type: Crack/Cocaine Advance Directives: Yes Advance Directives on File: Yes Advance Directives Date on File: 08/28/21 service: No Current occupational status: disabled Cognitive needs: Yes (walker/wheelchair/cane) Hearing needs: No Vision needs: Yes Meds Allergies Allergy/AdvReac Type Severity Reaction Status Date / Time No Known Allergies Allergy Verified 07/24/22 10:08 Active Medications: Current Medications Azithromycin 500 mg/ Sodium (Chloride) 250 mls @ 125 mls/hr IV ONCE ONE Stop: 10/07/22 04:43 Ceftriaxone Sodium 1 gm/ (Sodium Chloride) 50 mls @ 100 mls/hr IV ONCE ONE Stop: 10/07/22 03:13 Home Medications Medication Instructions Recorded Confirmed Last Taken Type fluticasone 500 mcg-salmeterol 50 1 puff inhalation BID 04/06/22 07/24/22 04/06/22 History mcg/dose blistr powdr for inhalation (Advair Diskus) Physical Exam Vital Signs and Narrative: Vital Signs: Last Vital Signs Temp 98.2 F 10/07/22 00:30 Pulse 93 10/07/22 02:33 Resp 19 10/07/22 02:33 BP 138/83 10/07/22 02:33 Pulse Ox 91 L 10/07/22 02:33 O2 Del Method Nasal Cannula 10/07/22 02:33 O2 Flow Rate 3 10/07/22 02:33 BMI result Body Mass Index 65.0 Morbidly obese middle aged female lying in bed in mild distress on supplemental oxygen Neck supple Regular rate and rhythm, S1-S2 heard Decrease breath sounds due to body habitus, bilateral wheezing appreciated Abdomen soft nontender, no guarding, no rigidity Patient is awake, alert and oriented to self, place, time and person ; no focal motor deficit Psych: Normal mood Results Labs 10/07/22 02:22 10/07/22 02:23 Labs: Laboratory Results - last 24 hr 10/07/22 10/07/22 10/07/22 01:26 01:26 01:27 MCV MCH MCHC RDW Plt Count MPV Immature Gran % (Auto) Neut % (Auto) Lymph % (Auto) [place] % (Auto) Eos % (Auto) Baso % (Auto) Lymph # (Auto) [place] # (Auto) Eos # (Auto) Baso # (Auto) Abs Immat Gran (auto) Absolute Neuts (auto) Absolute Nucleated RBC Nucleated RBC % (auto) PT 10.3 INR 0.9 VBG pH VBG pCO2 VBG pO2 VBG HCO3 VBG O2 Saturation VBG Base Excess Anion Gap Estim Creat Clear Calc Estimated GFR Random Glucose Lactic Acid 2.3 H* Calcium Total Bilirubin Direct Bilirubin AST ALT Alkaline Phosphatase Troponin I High Sens B-Natriuretic Peptide Total Protein Albumin COVID-19 (MICHEL) Negative COVID-[employer] [facility] Com See Note 10/07/22 10/07/22 10/07/22 01:27 01:33 02:18 MCV MCH MCHC RDW Plt Count MPV Immature Gran % (Auto) Neut % (Auto) Lymph % (Auto) [place] % (Auto) Eos % (Auto) Baso % (Auto) Lymph # (Auto) [place] # (Auto) Eos # (Auto) Baso # (Auto) Abs Immat Gran (auto) Absolute Neuts (auto) Absolute Nucleated RBC Nucleated RBC % (auto) PT INR VBG pH 7.40 VBG pCO2 78 VBG pO2 171 VBG HCO3 49 H VBG O2 Saturation 100.0 VBG Base Excess 20.0 Anion Gap Estim Creat Clear Calc Estimated GFR Random Glucose Lactic Acid Calcium Total Bilirubin Direct Bilirubin AST ALT Alkaline Phosphatase Troponin I High Sens 10.7 B-Natriuretic Peptide 41 Total Protein Albumin COVID-19 (MICHEL) COVID-[employer] 10/07/22 10/07/22 02:22 02:23 MCV 87.5 MCH 25.6 L MCHC 29.2 L RDW 14.9 Plt Count 317 MPV 9.2 L Immature Gran % (Auto) 0.8 H Neut % (Auto) 79.0 H Lymph % (Auto) 12.5 L [place] % (Auto) 4.7 Eos % (Auto) 2.8 Baso % (Auto) 0.2 Lymph # (Auto) 1.5 [place] # (Auto) 0.6 Eos # (Auto) 0.3 Baso # (Auto) 0.0 Abs Immat Gran (auto) 0.10 H Absolute Neuts (auto) 9.5 H Absolute Nucleated RBC 0.020 H Nucleated RBC % (auto) 0.2 PT INR VBG pH VBG pCO2 VBG pO2 VBG HCO3 VBG O2 Saturation VBG Base Excess Anion Gap 10 L Estim Creat Clear Calc 107.6 Estimated GFR > 60 Random Glucose 201 H Lactic Acid Calcium 9.4 Total Bilirubin 0.4 Direct Bilirubin 0.2 AST 10 ALT 12 Alkaline Phosphatase 86 Troponin I High Sens B-Natriuretic Peptide Total Protein 6.9 Albumin 3.9 COVID-19 (MICHEL) COVID-19 Clin Com Imaging Radiologist's Impressions: Impressions Chest X-Ray 10/07/22 00:50 IMPRESSION: No dense consolidation. Bronchial wall thickening can be seen with a small airways process such as asthma or atypical/viral infection. Assessment and Plan (1) COPD (chronic obstructive pulmonary disease): Status: Acute Plan This is a 62-year-old female with pertinent history of chronic hypercapnic hypoxemic respiratory failure due to COPD, morbid obesity, TAURUS, diastolic congestive heart failure, essential hypertension, pyb-btqvgbu-gjvjkrwrw diabetes mellitus, mixed hyperlipidemia who presents to the emergency department for evaluation of dyspnea. #. Acute on chronic hypoxemic hypercarbic respiratory failure, due to COPD exacerbation: Will admit patient and continue supplemental oxygen. Initiating systemic steroids. Schedule and p.r.n. DuoNebs. Continue home inhaler. Monitor oxygen and wean as tolerated, maintain oxygen saturation greater than 88%. Consulting automobile locator, appreciate assistance. Initiating empiric IV azithromycin #. Acute lactic acidosis: Due to hypoxemia, not due to sepsis #. Chronic congestive heart failure with preserved ejection fraction: Continue home diuretics #. Yeb-iavufei-pdwtoonmz diabetes mellitus with hyperglycemia: Initiating Accu-Cheks with sliding scale insulin #. TAURUS: Continue NIV at night #. Morbid obesity: Counseled regarding diet and exercise #. Essential hypertension: Continue home antihypertensives #. Mixed hyperlipidemia: On statin #. Normocytic anemia Med rec pending DVT prophylaxis: Lovenox Full Code Cardiac diet Admit as inpatient and will require two night minimum hospital stay for supplemental oxygen close monitoring of respiratory status in this patient with obesity and multiple comorbidities Time Spent With Patient Time: Total time managing care of this patient today ____ minutes. Quality Stroke Does the patient have a stroke diagnosis?: No VTE Prior VTE?: No VTE Risk Level:: Medical - moderate - high VTE Device Contraindication: Treatment Not Indicated VTE Drug Contraindication: N/A - Med Ordered
--- NOTE | 2022-10-07 03:09 | PC.NURSE ---
per lab 49 bicarb results Stephanie Serrano MD aware RIGOBERTO Luna aware
[2022-10-07] MEDS: cefTRIAXone sodium 1 GM in 0.9 % Sodium Chloride 50 ML IV (03:26)
[2022-10-07 03:33] LABS: Reflex Lactate? Lactic Acid Added
--- NOTE | 2022-10-07 03:44 | PC.NURSE ---
Per Dr. Diaz keep O2 sat above 87%.
[2022-10-07] MEDS: Azithromycin 500 MG in 0.9 % Sodium Chloride 250 ML 125 MG IV (03:56)
--- NOTE | 2022-10-07 04:05 | PC.NURSE ---
RN to RN report given to Oksana. Pt will be transported to room 363, Pt aware of plan.
[2022-10-07 05:10] LABS: MANUAL DIFF FLAG NO
[2022-10-07 05:12] LABS: Basophils Percent Auto 0.2 % (0-2); Eosinophils Absolute Auto 0.2 X10*3/uL (0.0-0.4); Eosinophils Percent Auto 1.7 % (0-4); Hematocrit 40.7 % (37.0-47.0); Hemoglobin 11.8 g/dl (12.0-16.0); Imm Gran Abs Auto 0.09 X10*3/uL (0.00-0.03); Imm Gran Pct Auto 0.7 % (0.0-0.4); Lymphocytes Absolute Auto 1.1 X10*3/uL (1.2-4.9); Lymphocytes Percent Auto 8.6 % (20-40); Mean Corpuscular Hemoglobin 25.2 pg (27.0-33.0); Mean Platelet Volume 9.8 fL (9.4-12.3); Monocytes Absolute Auto 0.3 X10*3/uL (0.1-1.2); Monocytes Percent Auto 2.4 % (2-11); NRBC Pct Auto 0.2 /100WBC (0.0-0.2); Neutrophils Absolute Auto 10.9 x10*3/uL (2.0-8.3); Neutrophils Percent Auto 86.4 % (45-73); Platelet Count 350 X10*3/uL (160-400); Red Blood Count 4.68 X10*6/uL (4.20-5.50); White Blood Count 12.7 X10*3/uL (4.8-10.8)
[2022-10-07 05:23] LABS: ~Lactic Acid-LAB USE ONLY 1.7 mmol/L (0.5-2.0)
[2022-10-07 05:32] LABS: Anion Gap 18 (12-20); Blood Urea Nitrogen 24 mg/dL (9-16); Calcium 9.7 mg/dL (8.4-10.2); Carbon Dioxide 41 mmol/L (22-29); Chloride 89 mmol/L (96-108); Estimated Glomerular Filt Rate > 60; Glucose Random 201 mg/dL (60-115); Potassium 4.8 mmol/L (3.3-5.1); Sodium 143 mmol/L (135-145)
[2022-10-07] MEDS: Insulin Lispro 100 UNIT/ML 3 ML VIAL SUBCUT ×4 (07:39→21:28)
[2022-10-07] MEDS: Enoxaparin Sodium 40 MG/0.4 ML SYRINGE SUBCUT ×2 (07:39→19:58)
[2022-10-07] MEDS: 0.9 % Sodium Chloride Flush 3 ML SYRINGE IVFLUSH ×2 (07:40→13:25)
[2022-10-07 07:51] LABS: Glucose, Whole Blood 277 mg/dL (60-115)
[2022-10-07] MEDS: Albuterol/Iprat 2.5/0.5MG 3 ML AMPUL.NEB INHALE ×4 (08:07→20:19)
--- NOTE | 2022-10-07 09:54 | P.EN_ITS ---
Event Note Date of Service: 10/07/22 Event Note: 62-year-old female with pertinent history of chronic hypercapnic hypoxemic respiratory failure due to COPD, morbid obesity, TAURUS, diastolic congestive heart failure, essential hypertension, hxf-nejevnw-vsswltzwm diabetes mellitus, mixed hyperlipidemia who presents to the emergency department for evaluation of dyspnea. Acute on chronic hypoxemic hypercarbic respiratory failure, due to COPD exacerbation systemic steroids.? Schedule and p.r.n. DuoNebs.? Continue home inhaler and home oxygen Monitor oxygen and wean as tolerated, maintain oxygen saturation greater than 88%.? Consult printer assistant Initiating empiric IV azithromycin Acute lactic acidosis. Due to hypoxemia not due to sepsis Chronic congestive heart failure with preserved ejection fraction Continue home diuretics Bwh-bwriofy-dpkekwzct diabetes mellitus with hyperglycemia Initiating Accu-Cheks with sliding scale insulin TAURUS Continue NIV at night Morbid obesity. BMI 64.2 Counseled regarding diet and exercise Essential hypertension Continue home antihypertensives Mixed hyperlipidemia On statin Normocytic anemia DVT prophylaxis:? Lovenox Full Code Attending Dr. Harris continued hospital stay for supplemental oxygen close monitoring of respiratory status in this patient with obesity and multiple comorbidities Time Spent With Patient Time: Total time managing care of this patient today ____ minutes.
[2022-10-07 11:35] LABS: Glucose, Whole Blood 359 mg/dL (60-115)
--- NOTE | 2022-10-07 11:43 | MHC.CM.PN ---
PATIENT LIVES WITH HER SPOUSE/MEDICAL RECORDS CLERK SHE HAS DAILY [employer]PER[employer] SERVICES (4 HOURS EACH DAY) TO ASSIST WITH MOST ADLS WALKER FOR AMBULATION, ALTHOUGH SHE REPORTS MINIMAL AMBULATION PCP IS MILO JIMENEZ AND UPDATE TO BE SENT THROUGH [facility] PATIENT IS ON CONTINUOS O2 (2L) THROUGH [facility] PATIENT ABOUT TO RECEIVE RT TREATMENT PATIENT IS AWARE THAT CASE MANAGEMENT CAN RETURN AT ANYTIME DURING HER STAY IF SHE HAS MORE TO ADD
--- NOTE | 2022-10-07 12:53 | P.CONPL_ITS ---
History of Present Illness History of Present Illness Consult date: 10/07/22 Requesting physician: Yadira Diaz Chief complaint: Dyspnea Narrative: 62-year-old lady with underlying morbid obesity, diastolic congestive heart failure, obstructive sleep apnea with obesity hypoventilation syndrome and CO2 retention, COPD admitted on 10/07/2022 with progressive dyspnea and hypoxia. Patient was deemed to have exacerbation of underlying COPD with possible commun ity-acquired pneumonia and admitted to general medical soares. Review of Systems Constitutional: Constitutional: Denies daytime sleepiness, Denies excessive sweating, Denies fatigue, Denies fever(s), Denies lethargy, Denies malaise, Denies night sweats, Denies snoring and Denies weight loss Eyes: Eyes: Denies blurry vision and Denies itchy eyes ENT: Denies nasal congestion, Denies post nasal drip, Denies sinus pain, Denies sinus pressure and Denies other ( Thrush) Cardiovascular: Cardiovascular: Denies chest pain, Reports pedal edema, Denies dyspnea, Reports dyspnea on exertion, Reports orthopnea and Denies paroxysmal nocturnal dyspnea Respiratory: Respiratory: Denies cough, Denies hemoptysis, Denies excessive phlegm production, Denies dyspnea, Reports dyspnea on exertion, Denies snoring and Denies wheezing Gastrointestinal: Gastrointestinal: Denies abdominal pain and Denies heartburn Musculoskeletal: Musculoskeletal: Denies myalgias, Denies arthralgias and Denies joint swelling Integumentary/Breasts: Skin/Breast: Denies rash Neurologic: Denies memory loss and Denies seizure-like activity Psychiatric: Psychiatric: Denies abnormal sleep pattern, Denies anxiety and Denies memory loss Endocrine: Endocrine: Denies excessive sweating, Denies fatigue and Denies heat intolerance Hematologic/Lymphatic: Hematologic/Lymphatic: Denies easy bruising Allergic/Immunologic: Allergic/Immunologic: Denies itchy eyes, Denies seasonal rhinorrhea and Denies wheezing PMFSH Past Medical History Medical History Cerebrovascular accident involving posterior circulation Cocaine use disorder, mild, in sustained remission Congestive heart failure COPD (chronic obstructive pulmonary disease) Diabetes mellitus Diastolic CHF Essential hypertension Mixed incontinence urge and stress Moderate asthma Morbid obesity Obesity Obesity hypoventilation syndrome Obstructive sleep apnea TAURUS (obstructive sleep apnea) Oxygen dependent Redness of left eye Family History Family History Father Medical history unknown Mother Diabetes Hypertension Father Medical history unknown Mother Hypertension Diabetes Other Substance use disorder Surgical History Surgical History History of cholecystectomy History of cholecystectomy History of open reduction and internal fixation (ORIF) procedure History of open reduction and internal fixation (ORIF) procedure History of tubal ligation History of tubal ligation Social History Social History Household Members: Spouse Housing: Apartment Do you presently have visiting nurse or other home services: Yes Alcohol intake: never Patient Tobacco Use Status: Former Tobacco user Tobacco use type: Cigarette Cigarette Packs Per Day: 0.75 Cigarettes Per Day: 15.0 Years Smoked: 31 years e-Cigarette/Vaping Use: Never Used Second Hand Smoke Exposure: Yes Substance Use Type: Crack/Cocaine Advance Directives Date on File: 08/28/21 service: No Current occupational status: disabled Cognitive needs: Yes (walker/wheelchair/cane) Hearing needs: No Vision needs: Yes Meds Allergies Allergy/AdvReac Type Severity Reaction Status Date / Time No Known Allergies Allergy Verified 10/07/22 03:47 Active Medications: Current Medications Acetaminophen (Acetaminophen 325 Mg Tablet) 650 mg PO Q6H PRN PRN Reason: Pain, Mild (Pain Scale 1-3) Acetazolamide (Acetazolamide Sodium 500 Mg Vial) 500 mg IVPUSH BID [facility] Albuterol/Ipratropium (Albuterol/Iprat 2.5/0.5mg 3 Ml Ampul.Neb) 3 ml INHALE RQ4H WHILE AWAKE [facility] Last Admin: 10/07/22 11:36 Dose: 3 ml Albuterol/Ipratropium (Albuterol/Iprat 2.5/0.5mg 3 Ml Ampul.Neb) 3 ml INHALE Q4H PRN PRN Reason: Wheezing Benzonatate (Benzonatate 100 Mg Capsule) 200 mg PO TID PRN PRN Reason: Cough Enoxaparin Sodium (Enoxaparin Sodium 40 Mg/0.4 Ml Syringe) 40 mg SUBCUT Q12H [facility] Last Admin: 10/07/22 07:39 Dose: 40 mg Glucose (Glucose Gel 15 Gm Gel..Gram.) 15 gm PO Q15M PRN; Protocol PRN Reason: per Hypoglycemia Standing Ord. Azithromycin 500 mg/ Sodium (Chloride) 250 mls @ 125 mls/hr IV Q24H EUGENIO Dextrose (D10) 250 mls @ 750 mls/hr IV Q15M PRN; Protocol PRN Reason: per Hypoglycemia Standing Ord. Insulin Human Lispro (Insulin Lispro 100 Unit/Ml 3 Ml Vial) 0 unit SUBCUT QIDACHS [facility]; Protocol Last Admin: 10/07/22 11:29 Dose: 10 unit Melatonin (Melatonin 3 Mg Tablet) 6 mg PO BEDTIME PRN PRN Reason: Insomnia Methylprednisolone Sodium Succinate (Methylprednisolone Sod Succ 40 Mg/Ml Vial) 40 mg IVPUSH Q12H EUGENIO Ondansetron HCl (Ondansetron Hcl 4 Mg/2 Ml Vial) 4 mg IVPUSH Q8H PRN PRN Reason: Nausea and Vomiting Pharmacy Consult (Consult Rx Perform Med Rec) 1 each MISCELLANE ONCE PRN PRN Reason: Consult order Sodium Chloride (0.9 % Sodium Chloride Flush 3 Ml Sy[facility]) [facility] Admin: 10/07/22 07:40 Dose: 3 ml Home Medications Medication Instructions Recorded Confirmed Last Taken Type fluticasone 500 mcg-salmeterol 50 1 puff inhalation BID 04/06/22 10/07/22 04/06/22 History mcg/dose blistr powdr for inhalation (Advair Diskus) Physical Exam Vital Signs: Vital Signs: Last Vital Signs Temp 97.8 F 10/07/22 08:45 Pulse 112 H 10/07/22 11:38 Resp 20 10/07/22 11:38 BP 140/84 H 10/07/22 08:45 Pulse Ox 89 L 10/07/22 08:45 O2 Del Method Nasal Cannula 10/07/22 08:45 O2 Flow Rate 3 10/07/22 08:45 BMI result Body Mass Index 64.1 Const: General: no acute distress and alert Nutritional Appearance: obese Orientation/consciousness: Other orientation findings ( oriented) HEENT: Head: Yes atraumatic Eyes: General: appearance normal, both eyes and all related structures Sclerae: sclerae normal EOM: EOMs intact bilaterally Neck: Neck: Yes supple Lymphatic: no lymphadenopathy noted Resp: Effort & Inspection: normal respiratory effort and no use of accessory muscles Auscultation: crackles (Bilateral) Cardio: Rate: regular rate Rhythm: regular rhythm Heart sounds: no gallops, no murmurs and no rubs GI: Palpation (GI): Soft to palpation and Other GI palpation findings present ( nontender) Skin: General skin exam: other ( warm) Rashes: no rashes Extrem: General: No clubbing, No cyanosis and Yes edema (1+ bilateral) Results Laboratory Findings 10/07/22 04:46 10/07/22 04:46 ABG, PT/INR, D-dimer: PT/INR, D-dimer PT 10.3 SEC (10.0-13.1) 10/07/22 01:27 INR 0.9 (0.9-1.1) 10/07/22 01:27 Abnormal lab findings: Abnormal Labs 10/07/22 10/07/22 10/07/22 01:26 01:33 02:22 WBC 12.0 H RBC 4.07 L Hgb 10.4 L Hct 35.6 L MCH 25.6 L MCHC 29.2 L MPV 9.2 L Immature Gran % (Auto) 0.8 H Neut % (Auto) 79.0 H Lymph % (Auto) 12.5 L Lymph # (Auto) Abs Immat Gran (auto) 0.10 H Absolute Neuts (auto) 9.5 H Absolute Nucleated RBC 0.020 H VBG HCO3 49 H Chloride Carbon Dioxide Anion Gap BUN POC Glucose Random Glucose Lactic Acid 2.3 H* 10/07/22 10/07/22 10/07/22 02:23 04:46 04:46 WBC 12.7 H RBC Hgb 11.8 L Hct MCH 25.2 L MCHC 29.0 L MPV Immature Gran % (Auto) 0.7 H Neut % (Auto) 86.4 H Lymph % (Auto) 8.6 L Lymph # (Auto) 1.1 L Abs Immat Gran (auto) 0.09 H Absolute Neuts (auto) 10.9 H Absolute Nucleated RBC 0.030 H VBG HCO3 Chloride 89 L 89 L Carbon Dioxide 49 H* 41 H* Anion Gap 10 L BUN 26 H 24 H POC Glucose Random Glucose 201 H 201 H Lactic Acid 10/07/22 10/07/22 07:35 11:23 WBC RBC Hgb Hct MCH MCHC MPV Immature Gran % (Auto) Neut % (Auto) Lymph % (Auto) Lymph # (Auto) Abs Immat Gran (auto) Absolute Neuts (auto) Absolute Nucleated RBC VBG HCO3 Chloride Carbon Dioxide Anion Gap BUN POC Glucose 277 H 359 H* Random Glucose Lactic Acid Assessment and Plan (1) Acute and chronic respiratory failure: Status: Acute (2) Congestive heart failure: Qualifiers: Heart failure chronicity: acute on chronic Heart failure type: unspecified Qualified Code(s): I50.9 - Heart failure, unspecified Status: Acute (3) COPD (chronic obstructive pulmonary disease): Status: Acute Plan Impression: 62-year-old with underlying obesity, hypoventilation syndrome diastolic heart failure and COPD admitted with acute on chronic hypoxic respiratory failure. Her blood gas shows now acute hypercapnia but instead compensated chronic respiratory acidosis. She appears to be an exacerbation of underlying congestive heart failure. Recommendations: Consider discontinuation of antibiotics and systemic glucocorticoids. Consider diuresis with acetazolamide +/- loop diuretic. Time Spent With Patient Time: Total time managing care of this patient today ____ minutes. Procedures Date of Service Date of Service: 10/07/22
[2022-10-07] MEDS: acetaZOLAMIDE sodium 500 MG VIAL IVPUSH ×2 (13:25→19:58)
--- NOTE | 2022-10-07 16:40 | PHA.MEDREC ---
Pharmacy Consult ? Medication Reconciliation Pharmacy has completed the medication reconciliation.
[2022-10-07 16:51] LABS: Glucose, Whole Blood 378 mg/dL (60-115)
[2022-10-07] MEDS: hydrALAZINE HCl 10 MG TABLET PO (19:59)
[2022-10-07] MEDS: Atorvastatin Calcium 80 MG TABLET PO (19:59)
[2022-10-07] MEDS: VerapamiL HCL 120 MG TABLET PO (19:59)
[2022-10-07 21:11] LABS: Glucose, Whole Blood 328 mg/dL (60-115)
[2022-10-08] VITALS (10 sets, daily range): BP systolic 117–149; BP diastolic 62–82; PULSE 87–102; RESP 16–20; TEMP 36–36.1; O2SAT 92–99
[2022-10-08] MEDS: Acetaminophen 325 MG TABLET 650 MG PO ×2 (00:34→08:32)
--- NOTE | 2022-10-08 07:00 | CA_ITS ---
Transthoracic Echocardiogram Patient (Last, First, Middle): Ashleigh Keenan, Gender: Female Date of : 1960 Age: 62 Procedure Date: 10/08/2022 Procedure Type: Transthoracic Echocardiogram Location: S3E Height: 152.4 cm Weight: 148.78 kg BSA: 2.30 m2 Heart Rate: 60 bpm BP: 149 / 80 mmHg Television Schedule Coordinator: SHAYNE Referring MD: Joselyn Malone NP Weight And Balance Control Agent: Rey Edmonds MD Symptoms: ? CHF Study Quality: Technically Difficult ECG Rhythm: Sinus Conclusions: - 1. Technically limited study despite use of contrast agent 2. LV ejection fraction of greater than 60% Findings Procedure Information Contrast agent, definity, is being given per protocol without apparent complications. The quality of the study was despite the use of contrast and endocardial definition remains poor. The study quality is limited by patients body habitus. Left Ventricle The left ventricle was not well visualized. Regional wall motion abnormalities can not be excluded due to suboptimal endocardial definition. Diastolic function is indeterminate on the basis of available data. On multiple off axis views LV systolic function appears normal with LVEF of greater than 60% Right Ventricle The right ventricle was not well visualized. Atria The left atrium was not well visualized. Interatrial shunt cannot be excluded. The right atrium was not well visualized. Aortic Valve The aortic valve structure and function is likely normal. There is no aortic valve stenosis. Mitral Valve The mitral valve was not well visualized. There is no mitral valve regurgitation. Pulmonic Valve The pulmonic valve was not well visualized. Tricuspid Valve The tricuspid valve was not well visualized. Great Vessels The aorta was not well visualized. The pulmonary artery was not well visualized. Venous The inferior vena cava was not well visualized. Pericardium/Pleural The pericardium was not well visualized. Prior Study Comparison No significant change compared to prior study dated: 08/29/2021. study is suboptimal, LV systolic function appears similar Measurements 2D Linear Measurements IVSd: 1.25 0.6-0.9/0.6-1.0 cm LVIDd: 5.03 3.9-5.3/4.2-5.9 cm LVIDd Index: 2.19 2.4-3.2/2.2-3.1 cm/m2 LVIDs: 3.54 2.0-3.6 cm LVPWd: 1.10 0.7-1.1 cm LA Diam: 4.10 2.7-3.8/3.0-4.0 cm LAIDs Index: 1.78 1.5-2.3 cm/m2 LV Mass: 285.67 67-162/88-224 g LV Mass Index: 124.20 43-95/49-115 g/m2 LVOT Diam: 2.30 3.0+(-)1.3 cm 2D Systolic Function EF 4C: 61.90 >55% EF 2C: 73.90 >55% EF BiP: 67.50 >55% Mitral Valve MV Pk E: 0.93 MV PK A: 0.81 MV Decel Time: 253.00 E/A: 1.10 E'Lateral: 7.83 E'Medial: 5.33 E/E' Med: 17.40 E/E' Lat: 11.90 PHT: 74.00 MVA PHT: 2.97 Decel [place]: 3.67 Aortic Valve AoV Pk Ruiz: 1.32 AoV Mn Ruiz: 0.94 AoV VTI: 0.25 AoV Pk Grad: 7.00 Aov Mn Grad: 4.00 KARINA Cont.VTI: 3.19 LVOT LVOT Pk Ruiz: 1.05 LVOT Mn Ruiz: 0.68 LVOT VTI: 0.19 LVOT Pk Grad: 4.00 LVOT Mn Grad: 2.00 LVOT Diam: 2.30 LVOT Area: 4.15 Diastolic Function MV Pk E: 0.93 MV Pk A: 0.81 E/A: 1.10 E'Medial: 5.33 E/E' Med: 17.40 E' Laterial: 7.83 E/E' Lat: 11.90 Great Vessels Aorta Sinus of Valsalva: 2.80 2.0-3.5 cm Ao Asc: 3.10 2.1-3.4 cm Pulmonary Valve PV Pk Ruiz: 1.22 Peak PV Grad: 6.00 Updated in Other Vendor System with Status of Final Rey Edmonds MD electronically signed on 10/08/2022 4:25:09 PM with status of Final
[2022-10-08 07:31] LABS: Glucose, Whole Blood 198 mg/dL (60-115)
[2022-10-08] MEDS: Enoxaparin Sodium 40 MG/0.4 ML SYRINGE SUBCUT ×2 (08:24→20:12)
[2022-10-08] MEDS: Insulin Lispro 100 UNIT/ML 3 ML VIAL SUBCUT ×6 (08:24→21:27)
[2022-10-08] MEDS: Furosemide 20 MG TABLET PO (08:25)
[2022-10-08] MEDS: acetaZOLAMIDE sodium 500 MG VIAL IVPUSH ×2 (08:25→20:11)
[2022-10-08] MEDS: hydroCHLOROthiazide 25 MG TABLET PO (08:25)
[2022-10-08] MEDS: Aspirin Enteric Coated 81 MG TABLET.DR PO (08:25)
[2022-10-08] MEDS: amLODIPine Besylate 10 MG TABLET PO (08:25)
[2022-10-08] MEDS: Thiamine HCL 100 MG TABLET PO (08:25)
[2022-10-08] MEDS: lisinopriL 10 MG TABLET PO (08:25)
[2022-10-08] MEDS: VerapamiL HCL 120 MG TABLET PO ×2 (08:25→20:12)
[2022-10-08] MEDS: 0.9 % Sodium Chloride Flush 3 ML SYRINGE IVFLUSH ×3 (08:27→20:12)
[2022-10-08] MEDS: hydrALAZINE HCl 10 MG TABLET PO ×2 (08:32→20:12)
--- NOTE | 2022-10-08 11:26 | HO.PM.IMPN ---
Subjective Subjective Date of Service: 10/08/22 Interval History: Follow up COPD, ATURUS Feeling better, but still with episodes of SOB and hypoxia Review of Systems Review of Systems: Yes all other systems are reviewed and are negative Constitutional Constitutional: Denies chills and Denies fever(s) ENT Ears, Nose, Mouth, and Throat: Denies dizziness Cardiovascular Cardiovascular: Denies chest pain, Denies palpitations and Denies dyspnea Respiratory Respiratory: Denies cough and Denies dyspnea Gastrointestinal Gastrointestinal: Denies abdominal pain, Denies nausea and Denies vomiting Neurologic Neurologic: Denies dizziness Endocrine Endocrine: Denies palpitations Physical Exam Vital Signs: Vital Signs: Last Vital Signs Temp 96.9 F 10/08/22 07:07 Pulse 102 H 10/08/22 07:07 Resp 20 10/08/22 07:07 BP 149/80 H 10/08/22 07:07 Pulse Ox 99 10/08/22 07:07 O2 Del Method CPAP 10/08/22 07:07 O2 Flow Rate 8 10/08/22 07:07 BMI result Body Mass Index 64.1 Appearing in no acute distress lung sounds are clear to auscultation heart regular rate rhythm, clear S1, S2 positive bowel sounds, abdomen is soft, nontender, obese neuro patient is alert x3, no focal deficits Objective Data Active Medications Acetaminophen (Acetaminophen 325 Mg Tablet) 650 mg PO Q6H PRN PRN Reason: Pain, Mild (Pain Scale 1-3) Last Admin: 10/08/22 08:32 Dose: 650 mg Documented By: JUDY Acetazolamide (Acetazolamide Sodium 500 Mg Vial) 500 mg IVPUSH BID [facility] Last Admin: 10/08/22 08:25 Dose: 500 mg Documented By: JUDY Albuterol/Ipratropium (Albuterol/Iprat 2.5/0.5mg 3 Ml Ampul.Neb) 3 ml INHALE RQ4H WHILE AWAKE [facility] Last Admin: 10/07/22 20:19 Dose: 3 ml Documented By: HUY Albuterol/Ipratropium (Albuterol/Iprat 2.5/0.5mg 3 Ml Ampul.Neb) 3 ml INHALE Q4H PRN PRN Reason: Wheezing Amlodipine Besylate (Amlodipine Besylate 10 Mg Tablet) 10 mg PO DAILY [facility]; Protocol Last Admin: 10/08/22 08:25 Dose: 10 mg Documented By: JUDY Aspirin (Aspirin Enteric Coated 81 Mg Tablet.) 81 mg PO DAILY [facility] Last Admin: 10/08/22 08:25 Dose: 81 mg Documented By: JUDY Atorvastatin Calcium (Atorvastatin Calcium 80 Mg Tablet) 80 mg PO BEDTIME [facility] Last Admin: 10/07/22 19:59 Dose: 80 mg Documented By: N-PIERM Benzonatate (Benzonatate 100 Mg Capsule) 200 mg PO TID PRN PRN Reason: Cough Enoxaparin Sodium (Enoxaparin Sodium 40 Mg/0.4 Ml Syringe) 40 mg SUBCUT Q12H [facility] Last Admin: 10/08/22 08:24 Dose: 40 mg Documented By: JUDY Furosemide (Furosemide 20 Mg Tablet) 20 mg PO DAILY [facility]; Protocol Last Admin: 10/08/22 08:25 Dose: 20 mg Documented By: JUDY Glucose (Glucose Gel 15 Gm Gel..Gram.) 15 gm PO Q15M PRN; Protocol PRN Reason: per Hypoglycemia Standing Ord. Hydralazine HCl (Hydralazine Hcl 10 Mg Tablet) 10 mg PO BID [facility]; Protocol Last Admin: 10/08/22 08:32 Dose: 10 mg Documented By: JUDY Hydrochlorothiazide (Hydrochlorothiazide 25 Mg Tablet) 25 mg PO DAILY [facility]; Protocol Last Admin: 10/08/22 08:25 Dose: 25 mg Documented By: JUDY Dextrose (D10) 250 mls @ 750 mls/hr IV Q15M PRN; Protocol PRN Reason: per Hypoglycemia Standing Ord. Insulin Human Lispro (Insulin Lispro 100 Unit/Ml 3 Ml Vial) 0 unit SUBCUT QIDAS [facility]; Protocol Last Admin: 10/08/22 08:24 Dose: 2 unit Documented By: JUDY Insulin Human Lispro (Insulin Lispro 100 Unit/Ml 3 Ml Vial) 5 unit SUBCUT QIDAS [facility] Last Admin: 10/08/22 08:24 Dose: 5 unit Documented By: JUDY Lidocaine (Lidocaine 4 % Patch Adh..Patch) 1 patch TRANSDERMA DAILY [facility] Last Admin: 10/08/22 08:26 Dose: Not Given Documented By: JUDY Non-Admin Reason: Patient Refused Lisinopril (Lisinopril 10 Mg Tablet) 10 mg PO DAILY [facility]; Protocol Last Admin: 10/08/22 08:25 Dose: 10 mg Documented By: JUDY Melatonin (Melatonin 3 Mg Tablet) 6 mg PO BEDTIME PRN PRN Reason: Insomnia Ondansetron HCl (Ondansetron Hcl 4 Mg/2 Ml Vial) 4 mg IVPUSH Q8H PRN PRN Reason: Nausea and Vomiting Pharmacy Consult (Consult Rx Perform Med Rec) 1 each MISCELLANE ONCE PRN PRN Reason: Consult order Senna (Sennosides 8.6 Mg Tablet) 8.6 mg PO BID PRN PRN Reason: constipation Sodium Chloride (0.9 % Sodium Chloride Flush 3 Ml Syringe) 3 ml IVFLUSH QSHIFT [facility] Last Admin: 10/08/22 08:27 Dose: 3 ml Documented By: JUDY Thiamine HCl (Thiamine Hcl 100 Mg Tablet) 100 mg PO DAILY [facility] Last Admin: 10/08/22 08:25 Dose: 100 mg Documented By: JUDY Verapamil HCl (Verapamil Hcl 120 Mg Tablet) 120 mg PO BID [facility]; Protocol Last Admin: 10/08/22 08:25 Dose: 120 mg Documented By: JUDY Labs 10/07/22 04:46 10/07/22 04:46 Labs: Laboratory Results - last 24 hr 10/07/22 10/07/22 10/07/22 11:23 16:47 20:57 POC Glucose 359 H* 378 H* 328 H 10/08/22 07:18 POC Glucose 198 H Microbiology Microbiology Results: Microbiology 10/07/22 01:27 Blood Culture - Preliminary Blood - Venous No growth after 24 hours. 10/07/22 01:27 Blood Culture - Preliminary Blood - Venous No growth after 24 hours. Assessment and Plan (1) Acute and chronic respiratory failure: Status: Acute Plan 62-year-old female with pertinent history of chronic hypercapnic hypoxemic respiratory failure due to COPD, morbid obesity, TAURUS, diastolic congestive heart failure, essential hypertension, sgv-xkdjxuy-mhhdpgijp diabetes mellitus, mixed hyperlipidemia who presents to the emergency department for evaluation of dyspnea. Acute on chronic hypoxemic hypercarbic respiratory failure, due to COPD exacerbation systemic steroids.? Schedule and p.r.n. DuoNebs.? Continue home inhaler and home oxygen Monitor oxygen and wean as tolerated, maintain oxygen saturation greater than 88%.? Pulm following Chronic congestive heart failure with preserved ejection fraction Continue home diuretics seen and evaluated by pulmonology rec>tx for CHF, will obtain echo and BNP Acute lactic acidosis. Due to hypoxemia not due to sepsis Gum-iqwkiqt-clqivlvoc diabetes mellitus with hyperglycemia sliding scale insulin added mealtime insulin TAURUS Continue NIV at night Morbid obesity. BMI 64.2 Counseled regarding diet and exercise Essential hypertension Continue home antihypertensives Mixed hyperlipidemia On statin Normocytic anemia DVT prophylaxis:? Lovenox Full Code Attending Dr. Lynne continued hospital stay for supplemental oxygen close monitoring of respiratory status in this patient with obesity and multiple comorbidities Time Spent With Patient Time: Total time managing care of this patient today ____ minutes. Quality Stroke Does the patient have a stroke diagnosis?: No VTE Prior VTE?: No VTE Risk Level:: Medical - moderate - high VTE Device Contraindication: Treatment Not Indicated VTE Drug Contraindication: N/A - Med Ordered
[2022-10-08 11:29] LABS: Glucose, Whole Blood 196 mg/dL (60-115)
[2022-10-08] MEDS: Albuterol/Iprat 2.5/0.5MG 3 ML AMPUL.NEB INHALE ×2 (11:50→20:14)
[2022-10-08 13:03] LABS: Anion Gap 11 (12-20); Blood Urea Nitrogen 23 mg/dL (9-16); Calcium 9.4 mg/dL (8.4-10.2); Carbon Dioxide 39 mmol/L (22-29); Chloride 97 mmol/L (96-108); Estimated Glomerular Filt Rate > 60; Glucose Random 182 mg/dL (60-115); Potassium 3.9 mmol/L (3.3-5.1); Sodium 143 mmol/L (135-145)
[2022-10-08 13:06] LABS: B Type Natriuretic Peptide 125 pg/mL (<100)
--- NOTE | 2022-10-08 13:16 | MHC.CM.PN ---
per rounds pt does not have an anrtiapated dc date at this time
--- NOTE | 2022-10-08 14:31 | PC.RT ---
RT called to bedside this am, pt noted to be desaturating. Oxygen tubing found disconnected from cpap inlet. Pt hyperoxygenated without issue and returned to normal flow. RN aware.
[2022-10-08 16:43] LABS: Glucose, Whole Blood 224 mg/dL (60-115)
[2022-10-08] MEDS: Atorvastatin Calcium 80 MG TABLET PO (20:11)
[2022-10-08 20:57] LABS: Glucose, Whole Blood 164 mg/dL (60-115)
[2022-10-09] VITALS (19 sets, daily range): BP systolic 114–130; BP diastolic 75–85; PULSE 79–111; RESP 16–20; TEMP 36–36.7; O2SAT 87–99
[2022-10-09] MEDS: Acetaminophen 325 MG TABLET 650 MG PO (03:43)
[2022-10-09 07:20] LABS: Glucose, Whole Blood 139 mg/dL (60-115)
[2022-10-09] MEDS: Albuterol/Iprat 2.5/0.5MG 3 ML AMPUL.NEB INHALE ×4 (07:47→19:18)
[2022-10-09] MEDS: acetaZOLAMIDE sodium 500 MG VIAL IVPUSH ×2 (08:28→21:37)
[2022-10-09] MEDS: lisinopriL 10 MG TABLET PO (08:28)
[2022-10-09] MEDS: VerapamiL HCL 120 MG TABLET PO ×2 (08:28→21:13)
[2022-10-09] MEDS: Enoxaparin Sodium 40 MG/0.4 ML SYRINGE SUBCUT ×2 (08:28→21:14)
[2022-10-09] MEDS: Thiamine HCL 100 MG TABLET PO (08:28)
[2022-10-09] MEDS: hydrALAZINE HCl 10 MG TABLET PO ×2 (08:29→21:13)
[2022-10-09] MEDS: Aspirin Enteric Coated 81 MG TABLET.DR PO (08:29)
[2022-10-09] MEDS: amLODIPine Besylate 10 MG TABLET PO (08:29)
[2022-10-09] MEDS: hydroCHLOROthiazide 25 MG TABLET PO (08:29)
[2022-10-09] MEDS: Furosemide 20 MG TABLET PO (08:29)
[2022-10-09] MEDS: Lidocaine 4 % Patch ADH..PATCH 1 PATCH TRANSDERMA (08:30)
[2022-10-09] MEDS: 0.9 % Sodium Chloride Flush 3 ML SYRINGE IVFLUSH ×3 (08:40→21:15)
--- NOTE | 2022-10-09 09:21 | P.PNIM_ITS ---
Subjective Subjective Date of Service: 10/09/22 Interval History: Follow up COPD, TAURUS Feeling better, but still with episodes of SOB and hypoxia Review of Systems Review of Systems: Yes all other systems are reviewed and are negative Constitutional Constitutional: Denies chills and Denies fever(s) ENT Ears, Nose, Mouth, and Throat: Denies dizziness Cardiovascular Cardiovascular: Denies chest pain, Denies palpitations and Denies dyspnea Respiratory Respiratory: Denies cough and Denies dyspnea Gastrointestinal Gastrointestinal: Denies abdominal pain, Denies nausea and Denies vomiting Neurologic Neurologic: Denies dizziness Endocrine Endocrine: Denies palpitations Physical Exam Vital Signs: Vital Signs: Last Vital Signs Temp 96.8 F 10/09/22 04:00 Pulse 97 10/09/22 07:47 Resp 20 10/09/22 07:47 BP 115/75 10/09/22 07:40 Pulse Ox 99 10/09/22 07:40 O2 Del Method CPAP 10/09/22 07:40 O2 Flow Rate 4 10/09/22 04:00 Oxygen Flow Rate 4 10/09/22 03:52 BMI result Body Mass Index 64.1 Appearing in no acute distress lung sounds are clear to auscultation heart regular rate rhythm, clear S1, S2 positive bowel sounds, abdomen is soft, nontender neuro patient is alert x3, no focal deficits Objective Data Active Medications Acetaminophen (Acetaminophen 325 Mg Tablet) 650 mg PO Q6H PRN PRN Reason: Pain, Mild (Pain Scale 1-3) Last Admin: 10/09/22 03:43 Dose: 650 mg Documented By: ROWENA Acetazolamide (Acetazolamide Sodium 500 Mg Vial) 500 mg IVPUSH BID [facility] Last Admin: 10/09/22 08:28 Dose: 500 mg Documented By: FADI Albuterol/Ipratropium (Albuterol/Iprat 2.5/0.5mg 3 Ml Ampul.Neb) 3 ml INHALE RQ4H WHILE AWAKE [facility] Last Admin: 10/09/22 07:47 Dose: 3 ml Documented By: GWENDOLYN Albuterol/Ipratropium (Albuterol/Iprat 2.5/0.5mg 3 Ml Ampul.Neb) 3 ml INHALE Q4H PRN PRN Reason: Wheezing Amlodipine Besylate (Amlodipine Besylate 10 Mg Tablet) 10 mg PO DAILY [facility]; Protocol Last Admin: 10/09/22 08:29 Dose: 10 mg Documented By: FADI Aspirin (Aspirin Enteric Coated 81 Mg Tablet.Dr) 81 mg PO DAILY [facility] Last Admin: 10/09/22 08:29 Dose: 81 mg Documented By: FADI Atorvastatin Calcium (Atorvastatin Calcium 80 Mg Tablet) 80 mg PO BEDTIME [facility] Last Admin: 10/08/22 20:11 Dose: 80 mg Documented By: GENEORALIsaiah Benzonatate (Benzonatate 100 Mg Capsule) 200 mg PO TID PRN PRN Reason: Cough Enoxaparin Sodium (Enoxaparin Sodium 40 Mg/0.4 Ml Syringe) 40 mg SUBCUT Q12H S Last Admin: 10/09/22 08:28 Dose: 40 mg Documented By: FADI Furosemide (Furosemide 20 Mg Tablet) 20 mg PO DAILY [facility]; Protocol Last Admin: 10/09/22 08:29 Dose: 20 mg Documented By: FADI Glucose (Glucose Gel 15 Gm Gel..Gram.) 15 gm PO Q15M PRN; Protocol PRN Reason: per Hypoglycemia Standing Ord. Hydralazine HCl (Hydralazine Hcl 10 Mg Tablet) 10 mg PO BID [facility]; Protocol Last Admin: 10/09/22 08:29 Dose: 10 mg Documented By: FADI Hydrochlorothiazide (Hydrochlorothiazide 25 Mg Tablet) 25 mg PO DAILY [facility]; Protocol Last Admin: 10/09/22 08:29 Dose: 25 mg Documented By: FADI Dextrose (D10) 250 mls @ 750 mls/hr IV Q15M PRN; Protocol PRN Reason: per Hypoglycemia Standing Ord. Insulin Human Lispro (Insulin Lispro 100 Unit/Ml 3 Ml Vial) 0 unit SUBCUT QIDACHS [facility]; Protocol Last Admin: 10/09/22 08:19 Dose: Not Given Documented By: FADI Non-Admin Reason: No Insulin Coverage Insulin Human Lispro (Insulin Lispro 100 Unit/Ml 3 Ml Vial) 5 unit SUBCUT QIDACHS [facility] Last Admin: 10/09/22 08:39 Dose: Not Given Documented By: FADI Non-Admin Reason: blood sugar 139 Lidocaine (Lidocaine 4 % Patch Adh..Patch) 1 patch TRANSDERMA DAILY [facility] Last Admin: 10/09/22 08:30 Dose: 1 patch Documented By: FADI Lisinopril (Lisinopril 10 Mg Tablet) 10 mg PO DAILY [facility]; Protocol Last Admin: 10/09/22 08:28 Dose: 10 mg Documented By: FADI Melatonin (Melatonin 3 Mg Tablet) 6 mg PO BEDTIME PRN PRN Reason: Insomnia Ondansetron HCl (Ondansetron Hcl 4 Mg/2 Ml Vial) 4 mg IVPUSH Q8H PRN PRN Reason: Nausea and Vomiting Pharmacy Consult (Consult Rx Perform Med Rec) 1 each MISCELLANE ONCE PRN PRN Reason: Consult order Senna (Sennosides 8.6 Mg Tablet) 8.6 mg PO BID PRN PRN Reason: constipation Sodium Chloride (0.9 % Sodium Chloride Flush 3 Ml Syringe) 3 ml IVFLUSH QSHIFT [facility] Last Admin: 10/09/22 08:40 Dose: 3 ml Documented By: FADI Thiamine HCl (Thiamine Hcl 100 Mg Tablet) 100 mg PO DAILY [facility] Last Admin: 10/09/22 08:28 Dose: 100 mg Documented By: FADI Verapamil HCl (Verapamil Hcl 120 Mg Tablet) 120 mg PO BID [facility]; Protocol Last Admin: 10/09/22 08:28 Dose: 120 mg Documented By: FADI Labs 10/07/22 04:46 10/08/22 12:38 Labs: Laboratory Results - last 24 hr 10/08/22 10/08/22 10/08/22 11:11 12:38 12:38 Anion Gap 11 L Estim Creat Clear Calc 111.0 Estimated GFR > 60 POC Glucose 196 H Random Glucose 182 H Calcium 9.4 B-Natriuretic Peptide 125 H 10/08/22 10/08/22 10/09/22 16:38 20:49 07:07 Anion Gap Estim Creat Clear Calc Estimated GFR POC Glucose 224 H 164 H 139 H Random Glucose Calcium B-Natriuretic Peptide Microbiology Microbiology Results: Microbiology 10/07/22 01:27 Blood Culture - Preliminary Blood - Venous No growth after 48 hours. 10/07/22 01:27 Blood Culture - Preliminary Blood - Venous No growth after 48 hours. Assessment and Plan (1) Acute and chronic respiratory failure: Status: Acute Plan 62-year-old female with pertinent history of chronic hypercapnic hypoxemic respiratory failure due to COPD, morbid obesity, TAURUS, diastolic congestive heart failure, essential hypertension, rkv-gfnknae-qnoisnxvd diabetes mellitus, mixed hyperlipidemia who presents to the emergency department for evaluation of dyspnea. Acute on chronic hypoxemic hypercarbic respiratory failure, due to COPD exacerbation systemic steroids.? Schedule and p.r.n. DuoNebs.? Continue home inhaler and home oxygen Monitor oxygen and wean as tolerated, maintain oxygen saturation greater than 88%.? Pulm following CPap at night PT eval Chronic congestive heart failure with preserved ejection fraction Continue home diuretics seen and evaluated by pulmonology rec>tx for CHF. Echo with normal EF, low normal BNP Acute lactic acidosis. Due to hypoxemia not due to sepsis Aga-tzegypd-vaeuwcebv diabetes mellitus with hyperglycemia. Improving sliding scale insulin added mealtime insulin TAURUS Continue NIV at night Morbid obesity. BMI 64.2 Counseled regarding diet and exercise Essential hypertension Continue home antihypertensives Mixed hyperlipidemia On statin Normocytic anemia DVT prophylaxis:? Lovenox Full Code Attending Dr. Lynne continued hospital stay for supplemental oxygen close monitoring of respiratory status in this patient with obesity and multiple comorbidities Time Spent With Patient Time: Total time managing care of this patient today ____ minutes. Quality Stroke Does the patient have a stroke diagnosis?: No VTE Prior VTE?: No VTE Risk Level:: Medical - moderate - high VTE Device Contraindication: Treatment Not Indicated VTE Drug Contraindication: N/A - Med Ordered
[2022-10-09] MEDS: methylPREDNISolone Sod Succ 40 MG/ML VIAL IVPUSH ×2 (10:55→21:13)
[2022-10-09 11:26] LABS: Glucose, Whole Blood 177 mg/dL (60-115)
[2022-10-09] MEDS: Insulin Lispro 100 UNIT/ML 3 ML VIAL SUBCUT ×6 (12:14→21:38)
[2022-10-09 17:33] LABS: Glucose, Whole Blood 252 mg/dL (60-115)
[2022-10-09 20:14] LABS: Glucose, Whole Blood 320 mg/dL (60-115)
[2022-10-09] MEDS: Atorvastatin Calcium 80 MG TABLET PO (21:13)
[2022-10-10 03:35] VITALS: BP 125/76; PULSE 84; RESP 19; TEMP 36.1; O2SAT 97
[2022-10-10 04:45] VITALS: PULSE 102; O2SAT 94
[2022-10-10 07:03] VITALS: BP 123/78; PULSE 90; RESP 18; TEMP 36.2
[2022-10-10 07:19] LABS: Glucose, Whole Blood 222 mg/dL (60-115)
[2022-10-10] MEDS: Lidocaine 4 % Patch ADH..PATCH 1 PATCH TRANSDERMA (07:40)
[2022-10-10] MEDS: Insulin Lispro 100 UNIT/ML 3 ML VIAL SUBCUT ×2 (07:42)
[2022-10-10] MEDS: acetaZOLAMIDE sodium 500 MG VIAL IVPUSH (07:44)
[2022-10-10] MEDS: Enoxaparin Sodium 40 MG/0.4 ML SYRINGE SUBCUT (07:45)
[2022-10-10] MEDS: hydrALAZINE HCl 10 MG TABLET PO (07:48)
[2022-10-10] MEDS: VerapamiL HCL 120 MG TABLET PO (07:48)
[2022-10-10] MEDS: lisinopriL 10 MG TABLET PO (07:49)
[2022-10-10] MEDS: Aspirin Enteric Coated 81 MG TABLET.DR PO (07:49)
[2022-10-10] MEDS: Furosemide 20 MG TABLET PO (07:49)
[2022-10-10] MEDS: Thiamine HCL 100 MG TABLET PO (07:49)
[2022-10-10] MEDS: hydroCHLOROthiazide 25 MG TABLET PO (07:49)
[2022-10-10] MEDS: amLODIPine Besylate 10 MG TABLET PO (07:49)
[2022-10-10] MEDS: 0.9 % Sodium Chloride Flush 3 ML SYRINGE IVFLUSH (07:51)
[2022-10-10 08:00] VITALS: O2SAT 95
--- NOTE | 2022-10-10 08:31 | W.MHC.F2F ---
Service Date Service Date: 10/10/22 Encounter Date of encounter: 10/10/22 Reasons for Services Signs and symptoms assessed: COPD/Asthma exacerbation Reason for detention: CV/CP assess and/or care Homebound: Leaving the home is medically contraindicated at this time without the asist of a device and/or another person due th the listed conditions above and below. Reason homebound: unsteady gait / fall risk and shortness of breath at rest Certification: Based on the above findings, I certify that this patient is confined to the home and needs intermittent detention care, physical therapy and/or speech therapy, or continues to need occupational therapy. The patient is under my care, and I have initiated the establishment of the plan of care. The patient will be followed by a physician who will periodically review the plan of care. Time Spent With Patient Time: Total time managing care of this patient today ____ minutes.
--- NOTE | 2022-10-10 08:32 | PM.DS ---
DS: Providers Provider Date of Service: 10/10/22 Date of admission: 10/07/22 03:00 Primary care physician: DESTINEE Saldana Consults: 10/07/22 03:16 Consult to Pulmonology Routine Consulting Provider: Tadeo Orantes Reason for consultation: COPD exacerbation DS: Diagnosis Discharge Diagnosis (1) Acute and chronic respiratory failure: Status: Acute DS: Summary Hospital Course Hospital Course: HP as per admitting provider This is a 62-year-old female with pertinent history of chronic hypercapnic hypoxemic respiratory failure due to COPD, morbid obesity, TAURUS, diastolic congestive heart failure, essential hypertension, spy-rfayavh-isbrmfgol diabetes mellitus, mixed hyperlipidemia who presents to the emergency department for evaluation of dyspnea.? Patient states it started on the day of presentation.? She used uses baseline 2 L home oxygen.? It was associated with wheezing and dry cough.? Patient without symptom relief with her home inhaler use.? When EMS arrived, patient was found to be hypoxemic in the 70s.? She denies fever, chills, chest discomfort, palpitations, abdominal pain, nausea, vomiting, changes in urinary or bowel habits. In the emergency department, patient requiring 3 L supplemental oxygen . Acute on chronic hypoxemic hypercarbic respiratory failure, due to COPD exacerbation. Treated with IV Solu-Medrol and scheduled DuoNebs. CPAP at night. Seen and evaluated by pulmonology. Symptoms have improved. Physical therapy recommended short-term rehab but patient's goal was to go home she does have support systems for that. Continue home oxygen and CPAP at night. Chronic congestive heart failure with preserved ejection fraction. No acute exacerbation. Continue home medications Echo with normal EF, low normal BNP Acute lactic acidosis. Due to hypoxemia Oip-kuqztnd-roimcvalk diabetes mellitus with hyperglycemia. Continue medications TAURUS. Continue NIV at night Morbid obesity. BMI 64.2. Counseled regarding diet and exercise Essential hypertension. Continue home antihypertensives Mixed hyperlipidemia. On statin Normocytic anemia Time Spent with Patient Time attestation: Total time managing care of this patient today ____ minutes. Discharge coordination time: Greater than 30 minutes Quality: Safe Use of Opioids Does Pt have an Active Cancer Diagnosis on the Problem List?: No Quality: Stroke Does the patient have a stroke diagnosis?: No Physical Exam Vital Signs: Vital Signs: Last Vital Signs Temp 97.2 F 10/10/22 07:03 Pulse 90 10/10/22 07:03 Resp 18 10/10/22 07:03 BP 123/78 10/10/22 07:03 Pulse Ox 97 10/10/22 03:35 O2 Del Method CPAP 10/10/22 03:35 O2 Flow Rate 4 10/10/22 03:35 Oxygen Flow Rate 4 10/10/22 03:35 BMI result Body Mass Index 64.1 Appearing in no acute distress head is normocephalic atraumatic eyes pupils are PERRLA sclera is anicteric mouth throat mucous membranes are intact and moist neck is supple no lymphadenopathy, no JVD noted lung sounds are clear to auscultation heart regular rate rhythm, clear S1, S2 positive bowel sounds, abdomen is soft, nontender. obese neuro patient is alert x3, no focal deficits DS: Data Data Completed and Pending Completed studies during hospitalization [Text1]: Procedures Assistance with Respiratory Ventilation, Less than 24 Consecutive Hours, Continuous Positive Airway Pressure (04/06/22) Insertion of Endotracheal Airway into Trachea, Via Natural or Artificial Opening (04/06/22) Insertion of Infusion Device into Superior Vena Cava, Percutaneous Approach (04/06/22) Introduction of Vasopressor into Central Vein, Percutaneous Approach (04/06/22) Respiratory Ventilation, 24-96 Consecutive Hours (04/06/22) Ultrasonography of Superior Vena Cava, Guidance (04/06/22) Labs on day of discharge: Laboratory Results - last 24 hr 10/09/22 10/09/22 10/09/22 11:20 17:15 20:03 POC Glucose 177 H 252 H 320 H 10/10/22 07:09 POC Glucose 222 H Preliminary micro results at discharge 10/07/22 01:27 Blood Culture - Preliminary Blood - Venous No growth after 48 hours. 10/07/22 01:27 Blood Culture - Preliminary Blood - Venous No growth after 48 hours. Discharge Plan Discharge Anticipated Discharge Date/Time: 10/10/22 08:12 Patient Disposition: Home Health Service Discharge Diagnosis: COPD/Asthma exacerbation TAURUS Referrals: Adriana Dietz FNP [Primary Care Provider] - 1 Week Discharge Medications: New prednisone 10 mg tablet See Taper PO DIRECTED Qty: 30 0RF Taper: Prednisone 40 mg daily for 3 Days and 0 Hour 30 mg daily for 3 Days and 0 Hour 20 mg daily for 3 Days and 0 Hour 10 mg daily for 3 Days and 0 Hour Rx Instructions: see taper instructions benzonatate 100 mg Capsule 200 mg PO TID PRN (Reason: Cough) Qty: 18 0RF Continued lidocaine 5 % adhesive patch,medicated 1 patch topical DAILY 30 Days Qty: 30 0RF Rx Instructions: leave on most painful area for up to 12 hrs thiamine HCl (vitamin B1) 100 mg tablet 100 mg PO DAILY 90 Days Qty: 90 1RF sennosides [Senna Lax] 8.6 mg tablet 8.6 mg PO BID PRN (Reason: constipation) 90 Days Qty: 180 1RF (DME) adult diapers pull-ups XXL See Rx Instructions .Route .MEDSUPPLY Qty: 200 11RF Rx Instructions: As directed (DME) underpads [Bed Underpads] Pad See Rx Instructions .Route Qty: 40 6RF Rx Instructions: As directed (DME) wipes standard See Rx Instructions .Route .MEDSUPPLY Qty: 200 11RF Rx Instructions: As directed (DME) AeroEclipse II Nebulizer Misc See Rx Instructions .Route Qty: 1 0RF Rx Instructions: As directed fluticasone propionate [Flonase Allergy Relief] 50 mcg/actuation spray,suspension 1 spray intranasal DAILY 30 Days Qty: 16 2RF Rx Instructions: administer into each nostril hydralazine 10 mg tablet 10 mg PO BID 90 Days Qty: 180 1RF Protocol: Hold for SBP< HOLD for SBP < : 90 atorvastatin 80 mg tablet 80 mg PO BEDTIME 90 Days Qty: 90 2RF aspirin 81 mg tablet,delayed release (DR/EC) 81 mg PO DAILY 90 Days Qty: 90 0RF verapamil 120 mg tablet 120 mg PO BID Qty: 180 1RF Protocol: Hold for SBP/HR < HOLD for SBP < : 90 HOLD for HR < : 60 cholecalciferol (vitamin D3) 50 mcg (2,000 unit) capsule 50 mcg PO DAILY 90 Days Qty: 90 1RF furosemide 20 mg tablet 20 mg PO QAM Qty: 90 2RF albuterol sulfate [ProAir HFA] 90 mcg/actuation HFA aerosol inhaler 2 puff PO Q6H PRN (Reason: wheezing) Qty: 8.5 1RF albuterol sulfate 2.5 mg /3 mL (0.083 %) solution for nebulization 2.5 mg inhalation Q4-6H PRN (Reason: for wheezing) 30 Days Qty: 75 3RF acetaminophen [Tylenol 8 Hour] 650 mg tablet extended release 650 mg PO Q8H PRN (Reason: pain) 30 Days Qty: 90 11RF hydrochlorothiazide 25 mg tablet 25 mg PO DAILY 90 Days Qty: 90 1RF amlodipine 10 mg tablet 10 mg PO DAILY 90 Days Qty: 90 1RF fluticasone propion-salmeterol [Advair Diskus] 500-50 mcg/dose blister with device 1 puff INHALATION BID lisinopril 10 mg Tablet 10 mg PO DAILY Qty: 30 0RF Protocol: Hold for SBP< HOLD for SBP < : 90 metformin 1,000 mg tablet 1,000 mg PO BID Qty: 180 0RF Discharge Orders: Discharge Order (Routine); Ordered 10/10/22 Ordered By: Joselyn Malone Diet: Advance to usual diet Activity on Discharge: As tolerated Stand Alone Forms: Patient Portal Discharge page Care Plan Goals: continue using your CPAP machine at nightime. Health Concerns: COPD/Asthma exacerbation TAURUS Plan of Treatment: Foillow up with primary care provider as needed Take all medications as prescribed Assessment: see discharge summary
--- NOTE | 2022-10-10 10:32 | MHC.CM.PN ---
Patient discharged to home today. VNA services ordered. Multiple referrals sent; but no accepting facility. [facility] was notified that another agency could not be found to accept the patient. [facility] had declined the patient when referred; but they instructed this magnetic tape typewriter operator to notify the agency if another agency could not be obtained. Request sent to follow the pt discharged to home. Patient provided a ride home.
== END 2022-10-10 09:57 | disposition home health service (06) | DRG 140 ==
LOC: HO.ED 02:59 → HO.EDOVER 03:06 → HO.S3 03:26
PROVIDERS: Admitting Provider Student in an Organized Health Care Education/Training Program; Emergency Provider Emergency Medicine; PCP Nurse Practitioner Family; Visit Provider Nurse Practitioner Acute Care
DX: J44.1 Chronic obstructive pulmonary disease with (acute) exacerbation (principal); J96.21 Acute and chronic respiratory failure with hypoxia; E87.21 Acute metabolic acidosis; Z68.44 Body mass index [BMI] 60.0-69.9, adult; E11.65 Type 2 diabetes mellitus with hyperglycemia; D64.9 Anemia, unspecified; I50.32 Chronic diastolic (congestive) heart failure; Z99.81 Dependence on supplemental oxygen; E66.01 Morbid (severe) obesity due to excess calories; I11.0 Hypertensive heart disease with heart failure; J96.22 Acute and chronic respiratory failure with hypercapnia; E78.2 Mixed hyperlipidemia; G47.33 Obstructive sleep apnea (adult) (pediatric); Z20.822 Contact with and (suspected) exposure to COVID-19; Z87.891 Personal history of nicotine dependence; Z79.51 Long term (current) use of inhaled steroids; Z79.82 Long term (current) use of aspirin; Z79.84 Long term (current) use of oral hypoglycemic drugs; Z79.899 Other long term (current) drug therapy
CPT/HCPCS: 36415; 71045; 80048; 80076; 82803; 82947; 83605; 83880; 84484; 85025; 85610; 87040; 87635; 93005; 93306; 94640; 94660; 97162; 99285; J0456; J0696; J1650; J2920; J2930; J3475; Q9957

== ENCOUNTER 2022-10-23 10:59 | Outpatient (REF) | payer OTHER, SELFPAY ==
--- NOTE | ~2022-10-23 | MM_ITS ---
EXAMINATION: MM SCREENING DIGITAL BREAST TOMOSYNTHESIS, BILATERAL CLINICAL INFORMATION: Screening. Asymptomatic. The lifetime risk of breast cancer based on the Tyrer-Cuzick Model is 4%. COMPARISON: Mammography: 07/26/2005 TECHNIQUE: Digital breast tomosynthesis is performed in both the craniocaudal and mediolateral oblique views along with computer-aided detection (CAD). Synthesized 2D images are generated from the tomosynthesis. Additional views are obtained: Bilateral CC, bilateral MLO. FINDINGS: The breasts are almost entirely fatty (ACR BI-RADS breast composition Category a). There are no significant masses, abnormal calcifications, or other abnormalities. Background stromal and fibroglandular densities are normal. There are scattered bilateral benign round and rim calcifications. No developing density or architectural abnormality. The axilla and skin contours are unremarkable. MM/MM tomosynthesis screening BI IMPRESSION: No mammographic evidence of malignancy. ASSESSMENT: BI-RADS 1: Negative RECOMMENDATION: Routine annual mammography screening. This patient's information was entered into a reminder system with a target due date for their next mammogram.
== END 2022-10-23 11:00 | disposition home or self-care (01) ==
LOC: HO.MAMMO 10:59
PROVIDERS: PCP Nurse Practitioner Family; Visit Provider Nurse Practitioner Family
DX: Z12.31 Encounter for screening mammogram for malignant neoplasm of breast (principal)
CPT/HCPCS: 77063; 77067

== ENCOUNTER 2022-11-04 18:17 | Emergency (ER) | payer OTHER, SELFPAY ==
--- NOTE | ~2022-11-04 | XR_ITS ---
EXAMINATION: XR CHEST CLINICAL INFORMATION: Shortness of breath COMPARISON: 10/07/2022 TECHNIQUE: Frontal view of the chest was obtained. FINDINGS: The heart is enlarged. There is some minimal central pulmonary vascular congestion but no edema. No infiltrates or pleural effusions are seen. Degenerative changes again noted in the both shoulders, right greater than left. XR/XR chest 1V IMPRESSION: Cardiomegaly with mild pulmonary vascular congestion.
--- NOTE | ~2022-11-04 | US_ITS ---
EXAMINATION: US VENOUS ULTRASOUND WITH DOPPLER LOWER EXTREMITY, BILATERAL CLINICAL INFORMATION: Bilateral lower extremity edema pain COMPARISON: None available. TECHNIQUE: Ultrasound of the deep veins is performed from the hip to the calf with compression sonography and color and pulse Doppler assessment. Spectral analysis with color-flow imaging is performed. FINDINGS: RIGHT: There is normal venous compression and respiratory variation and augmented flow. The visualized common femoral vein, superficial femoral vein, profunda femoral vein, popliteal vein, and the trifurcation region shows no evidence of deep venous thrombosis. There is a popliteal cyst measuring 3.1 x 0.9 x 2.0 cm. LEFT: There is normal venous compression and respiratory variation and augmented flow. The visualized common femoral vein, superficial femoral vein, profunda femoral vein, popliteal vein, and the trifurcation region shows no evidence of deep venous thrombosis. There is no significant popliteal fossa cyst. If the patient's symptoms persist, followup ultrasound in 5 days 7 days might be of value to exclude proximal propagation from a non-visualized calf vein. US/US venous duplex LE BI IMPRESSION: No DVT demonstrated in either lower extremity.
[2022-11-04 18:26] VITALS: BP 118/80; PULSE 109; O2SAT 95
[2022-11-04 18:27] VITALS: BP 106/58; PULSE 92; RESP 16; TEMP 37.2; O2SAT 96
[2022-11-04 18:48] VITALS: BP 105/54; PULSE 82; RESP 18; TEMP 37.2; O2SAT 96; BMI 55.8
--- NOTE | 2022-11-04 18:59 | ECG_ITS ---
Test Reason : SOB Blood Pressure : / mmHG Vent. Rate : 079 BPM Atrial Rate : 079 BPM P-R Int : 124 ms QRS Dur : 076 ms QT Int : 374 ms P-R-T Axes : 067 012 016 degrees QTc Int : 428 ms Sinus rhythm with sinus arrhythmia with occasional Premature ventricular complexes Low voltage QRS Borderline ECG When compared with ECG of 07-OCT-2022 00:38, Premature ventricular complexes are now Present Premature atrial complexes are no longer Present Nonspecific T wave abnormality now evident in Inferior leads Nonspecific T wave abnormality no longer evident in Lateral leads QT has shortened Referred By: Won Carroll Electronically Signed By:VON MARTINEZ MD
--- NOTE | 2022-11-04 19:01 | ED_ITS ---
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 She states that she actually has no trouble breathing and her breathing feels her baseline. She reports ?above the legs I am good. ? She denies any fevers, chills. Denies any injuries to the legs Denies any recent travel She does not believe she is on any blood thinners Related Data Home Medications Medication Instructions Recorded Confirmed fluticasone 500 mcg-salmeterol 50 1 puff inhalation BID 04/06/22 10/07/22 mcg/dose blistr powdr for inhalation (Advair Diskus) Previous Rx's Medication Instructions Recorded lidocaine 5 % topical patch 1 patch topical DAILY 30 days #30 11/20/21 ea sennosides 8.6 mg tablet (Senna 8.6 mg PO BID PRN constipation 90 11/20/21 Lax) days #180 tabs thiamine HCl (vitamin B1) 100 mg 100 mg PO DAILY 90 days #90 tabs 11/20/21 tablet adult diapers pull-ups #200 ea 01/23/22 underpads (Bed Underpads) #40 ea 01/23/22 wipes #200 ea 01/23/22 nebulizers (AeroEclipse II #1 ea 02/01/22 Nebulizer) atorvastatin 80 mg tablet 80 mg PO BEDTIME 90 days #90 tabs 05/18/22 cholecalciferol (vitamin D3) 50 50 mcg PO DAILY 90 days #90 caps 06/13/22 mcg (2,000 unit) capsule furosemide 20 mg tablet 20 mg PO QAM #90 tabs 06/27/22 albuterol sulfate 90 mcg/actuation 2 puff PO Q6H PRN wheezing #8.5 07/01/22 aerosol inhaler (ProAir HFA) grams albuterol sulfate 2.5 mg/3 mL 2.5 mg (3 mL) inhalation Q4-6H PRN 08/13/22 (0.083 %) solution for nebulization for wheezing 30 days #75 mL acetaminophen 650 mg 650 mg PO Q8H PRN pain 30 days #90 08/19/22 tablet,extended release (Tylenol 8 tabs Hour) hydrochlorothiazide 25 mg tablet 25 mg PO DAILY 90 days #90 tabs 09/26/22 amlodipine 10 mg tablet 10 mg PO DAILY 90 days #90 tabs 09/27/22 benzonatate 100 mg capsule 200 mg PO TID PRN Cough #18 caps 10/10/22 prednisone 10 mg tablet See Taper PO DIRECTED #30 tabs 10/10/22 hydralazine 10 mg tablet 10 mg PO BID 90 days #180 tabs 10/15/22 aspirin 81 mg tablet,delayed 81 mg PO DAILY 90 days #90 tabs 10/29/22 release fluticasone propionate 50 1 spray intranasal DAILY 30 days 10/29/22 mcg/actuation nasal #16 grams spray,suspension (Flonase Allergy Relief) metformin 1,000 mg tablet 1,000 mg PO BID #180 tabs 10/29/22 verapamil 120 mg tablet 120 mg PO BID #180 tabs 10/29/22 lisinopril 10 mg tablet 10 mg PO DAILY #90 tabs 10/30/22 furosemide 20 mg tablet 20 mg PO DAILY #5 tabs 11/04/22 Allergies Allergy/AdvReac Type Severity Reaction Status Date / Time No Known Allergies Allergy Verified 10/07/22 03:47 Review of Systems Constitutional: Constitutional: Denies body ache(s), Denies chills, Denies fatigue and Denies fever(s) Cardiovascular: Cardiovascular: Denies chest pain, Denies chest pain at rest, Denies chest pain with activity, Reports pedal edema, Reports leg edema and Denies dyspnea Respiratory: Respiratory: Denies cough and Denies dyspnea Gastrointestinal: Gastrointestinal: Denies abdominal pain, Denies nausea and Denies vomiting Musculoskeletal: Comments: Bilateral leg pain Integumentary/Breasts: Skin/Breast: Denies rash Endocrine: Endocrine: Denies fatigue PMFSH Past Medical History Medical History Cerebrovascular accident involving posterior circulation Cocaine use disorder, mild, in sustained remission Congestive heart failure COPD (chronic obstructive pulmonary disease) Diabetes mellitus Diastolic CHF Essential hypertension Mixed incontinence urge and stress Moderate asthma Morbid obesity Obesity Obesity hypoventilation syndrome Obstructive sleep apnea TAURUS (obstructive sleep apnea) Oxygen dependent Redness of left eye Surgical History History of cholecystectomy History of cholecystectomy History of open reduction and internal fixation (ORIF) procedure History of open reduction and internal fixation (ORIF) procedure History of tubal ligation History of tubal ligation Family History Family History Father Medical history unknown Mother Diabetes Hypertension Father Medical history unknown Mother Hypertension Diabetes Other Substance use disorder Social History Social History Household Members: Spouse Housing: Apartment Do you presently have visiting nurse or other home services: Yes Alcohol intake: never Patient Tobacco Use Status: Former Tobacco user Tobacco use type: Cigarette Cigarette Packs Per Day: 0.75 Cigarettes Per Day: 15.0 Years Smoked: 31 years e-Cigarette/Vaping Use: Never Used Second Hand Smoke Exposure: Yes Substance Use Type: Crack/Cocaine Advance Directives: Yes Advance Directives Information Provided: No Advance Directives on File: No Advance Directives Date on File: 08/28/21 service: No Current occupational status: disabled Cognitive needs: Yes (walker/wheelchair/cane) Hearing needs: No Vision needs: Yes Physical Exam ED Vital Signs: Vital Signs - 24 hr 11/04/22 18:27 11/04/22 18:48 11/04/22 20:18 Temperature 98.9 F 98.9 F Pulse Rate 92 82 79 Respiratory Rate 16 18 17 Blood Pressure 106/58 L 105/54 L 95/62 Pulse Oximetry 96 96 97 Oxygen Delivery Method Nasal Cannula Nasal Cannula Nasal Cannula Oxygen Flow Rate 3 4 BMI result Body Mass Index 55.8 Const General: healthy appearing, comfortable, no acute distress, alert and awake Nutritional Appearance: well nourished and obese morbidly obese Orientation/consciousness: patient oriented x3 HENMT Head: Yes normocephalic and Yes atraumatic Eyes Eyelids: Yes eyelids normal Conjunctivae: conjunctivae normal Sclerae: sclerae normal Corneas: corneas normal Pupils: Equal, round and reactive pupils present EOM: EOMs intact bilaterally Neck Neck: Yes full ROM Resp Effort & Inspection: normal respiratory effort, able to speak in complete sentences and not labored Cardio Rate: regular rate Rhythm: regular rhythm GI Inspection: No distended Palpation (GI): Soft to palpation, not firm, nontender, no guarding and not rigid Auscultation: normoactive bowel sounds Skin Other: There is very faint erythema to the right lower extremity medial aspect. General skin exam: no rashes or lesions noted and elasticity normal Neuro General: patient oriented x3 Cranial nerves: Yes Equal, round and reactive pupils present and Yes Bilaterally intact EOM present Cognition (Neuro): normal cognition Extrem Other: Bilateral lower extremity edema to about the level of knees. Calf tenderness bilaterally. Course Reevaluation(s) Reevaluation #1: Patient's workup largely unremarkable. Ultrasound is negative for DVT, BNP is actually quite low. Chest x-ray does show mild pulmonary vascular congestion. We will have the patient increase her Lasix for the next 5 days to 40 mg daily. I discussed this with her using the botanical technical officer. Patient has no white count, no fevers, low suspicion for cellulitis. Time: 21:38 Medical Decision Making Medical Decision Making MDM Narrative: 62-year-old female intubated using a botanical technical officer presents for evaluation of leg pain and swelling. She states that this started 3 days ago. She has a history of CHF. Given her body habitus that she is morbidly obese, it is somewhat difficult to determine the actual level of edema. She does appear to have approximately 2+ pitting edema to the lower extremities. There is trace erythema on the right which could be chronic changes, there is no significant warmth or be 3 erythema. Will check labs. She also denies any fevers or chills. We ultrasound of lower extremities to rule out DVTs. Will get chest x- ray and BNP to evaluate for disc heart failure with the patient has no shortness of breath at and is not in respiratory distress Differential Diagnosis Dependent edema Leg swelling Cellulitis DVT Lab Data 11/04/22 19:19 11/04/22 19:19 Labs: Lab Results 11/04/22 11/04/22 11/04/22 Range/Units 19:19 19:19 19:19 WBC 7.7 (4.8-10.8) X10*3/uL RBC 4.13 L (4.20-5.50) X10*6/uL Hgb 10.6 L (12.0-16.0) g/dl Hct 35.4 L (37.0-47.0) % MCV 85.7 (80.0-98.0) fL MCH 25.7 L (27.0-33.0) pg MCHC 29.9 L (31.0-35.0) g/dl RDW 15.8 (11.0-16.0) % Plt Count 289 (160-400) X10*3/uL MPV 10.2 (9.4-12.3) fL Immature Gran % (Auto) 0.3 (0.0-0.4) % Neut % (Auto) 68.8 (45-73) % Lymph % (Auto) 21.6 (20-40) % [place] % (Auto) 5.6 (2-11) % Eos % (Auto) 3.4 (0-4) % Baso % (Auto) 0.3 (0-2) % Lymph # (Auto) 1.7 (1.2-4.9) X10*3/uL [place] # (Auto) 0.4 (0.1-1.2) X10*3/uL Eos # (Auto) 0.3 (0.0-0.4) X10*3/uL Baso # (Auto) 0.0 (0.0-0.2) X10*3/uL Abs Immat Gran (auto) 0.02 (0.00-0.03) X10*3/uL Absolute Neuts (auto) 5.3 (2.0-8.3) x10*3/uL Absolute Nucleated RBC 0.000 (0.0-0.012) X10*3/uL Nucleated RBC % (auto) 0.0 (0.0-0.2) /100WBC Sodium 143 (135-145) mmol/L Potassium 4.1 (3.3-5.1) mmol/L Chloride 95 L (96-108) mmol/L Carbon Dioxide 36 H (22-29) mmol/L Anion Gap 16 (12-20) BUN 25 H (9-16) mg/dL Creatinine 0.81 (0.5-1.4) mg/dL Estim Creat Clear Calc 109.3 Estimated GFR > 60 Random Glucose 237 H (60-115) mg/dL Calcium 8.9 (8.4-10.2) mg/dL Total Bilirubin 0.3 (0.0-1.0) mg/dL AST 9 (5-31) U/L ALT 15 (0-31) U/L Alkaline Phosphatase 93 (39-117) U/L B-Natriuretic Peptide 15 (<100) pg/mL Total Protein 6.3 L (6.5-8.0) g/dL Albumin 3.7 (3.5-5.0) g/dL Lipase 89 H (8-78) U/L Discharge Plan Discharge Clinical Impression: Leg edema Patient Disposition: Home, Self-Care Instructions: Leg Edema (ED) Additional Instructions: Your ultrasound showed no evidence of blood clots. Your blood work was consistent with her baseline Take an extra dose of Lasix, so a total of 40 mg daily for the next 5 days and then go back to your regular does Return for new or worsening symptoms, especially if you develop fevers, redness to the legs Follow-up with your primary doctor Prescriptions: New furosemide 20 mg tablet 20 mg PO DAILY Qty: 5 0RF No Action lidocaine 5 % adhesive patch,medicated 1 patch topical DAILY 30 Days Qty: 30 0RF Rx Instructions: leave on most painful area for up to 12 hrs thiamine HCl (vitamin B1) 100 mg tablet 100 mg PO DAILY 90 Days Qty: 90 1RF sennosides [Senna Lax] 8.6 mg tablet 8.6 mg PO BID PRN (Reason: constipation) 90 Days Qty: 180 1RF (DME) adult diapers pull-ups XXL See Rx Instructions .Route .MEDSUPPLY Qty: 200 11RF Rx Instructions: As directed (DME) underpads [Bed Underpads] Pad See Rx Instructions .Route Qty: 40 6RF Rx Instructions: As directed (DME) wipes standard See Rx Instructions .Route .MEDSUPPLY Qty: 200 11RF Rx Instructions: As directed (DME) AeroEclipse II Nebulizer Misc See Rx Instructions .Route Qty: 1 0RF Rx Instructions: As directed atorvastatin 80 mg tablet 80 mg PO BEDTIME 90 Days Qty: 90 2RF cholecalciferol (vitamin D3) 50 mcg (2,000 unit) capsule 50 mcg PO DAILY 90 Days Qty: 90 1RF furosemide 20 mg tablet 20 mg PO QAM Qty: 90 2RF albuterol sulfate [ProAir HFA] 90 mcg/actuation HFA aerosol inhaler 2 puff PO Q6H PRN (Reason: wheezing) Qty: 8.5 1RF albuterol sulfate 2.5 mg /3 mL (0.083 %) solution for nebulization 2.5 mg inhalation Q4-6H PRN (Reason: for wheezing) 30 Days Qty: 75 3RF acetaminophen [Tylenol 8 Hour] 650 mg tablet extended release 650 mg PO Q8H PRN (Reason: pain) 30 Days Qty: 90 11RF hydrochlorothiazide 25 mg tablet 25 mg PO DAILY 90 Days Qty: 90 1RF amlodipine 10 mg tablet 10 mg PO DAILY 90 Days Qty: 90 1RF hydralazine 10 mg tablet 10 mg PO BID 90 Days Qty: 180 1RF Protocol: Hold for SBP< HOLD for SBP < : 90 aspirin 81 mg tablet,delayed release (DR/EC) 81 mg PO DAILY 90 Days Qty: 90 0RF fluticasone propionate [Flonase Allergy Relief] 50 mcg/actuation spray,suspension 1 spray intranasal DAILY 30 Days Qty: 16 2RF Rx Instructions: administer into each nostril verapamil 120 mg tablet 120 mg PO BID Qty: 180 1RF Protocol: Hold for SBP/HR < HOLD for SBP < : 90 HOLD for HR < : 60 metformin 1,000 mg tablet 1,000 mg PO BID Qty: 180 0RF lisinopril 10 mg tablet 10 mg PO DAILY Qty: 90 1RF Protocol: Hold for SBP< HOLD for SBP < : 90 fluticasone propion-salmeterol [Advair Diskus] 500-50 mcg/dose blister with device 1 puff INHALATION BID prednisone 10 mg tablet See Taper PO DIRECTED Qty: 30 0RF Taper: Prednisone 40 mg daily for 3 Days and 0 Hour 30 mg daily for 3 Days and 0 Hour 20 mg daily for 3 Days and 0 Hour 10 mg daily for 3 Days and 0 Hour Rx Instructions: see taper instructions benzonatate 100 mg Capsule 200 mg PO TID PRN (Reason: Cough) Qty: 18 0RF
[2022-11-04 19:23] LABS: MANUAL DIFF FLAG NO
[2022-11-04 19:25] LABS: Basophils Percent Auto 0.3 % (0-2); Eosinophils Absolute Auto 0.3 X10*3/uL (0.0-0.4); Eosinophils Percent Auto 3.4 % (0-4); Hematocrit 35.4 % (37.0-47.0); Hemoglobin 10.6 g/dl (12.0-16.0); Imm Gran Abs Auto 0.02 X10*3/uL (0.00-0.03); Imm Gran Pct Auto 0.3 % (0.0-0.4); Lymphocytes Absolute Auto 1.7 X10*3/uL (1.2-4.9); Lymphocytes Percent Auto 21.6 % (20-40); Mean Corpuscular HGB Conc 29.9 g/dl (31.0-35.0); Mean Corpuscular Hemoglobin 25.7 pg (27.0-33.0); Mean Corpuscular Volume 85.7 fL (80.0-98.0); Mean Platelet Volume 10.2 fL (9.4-12.3); Monocytes Absolute Auto 0.4 X10*3/uL (0.1-1.2); Monocytes Percent Auto 5.6 % (2-11); Neutrophils Absolute Auto 5.3 x10*3/uL (2.0-8.3); Neutrophils Percent Auto 68.8 % (45-73); Platelet Count 289 X10*3/uL (160-400); Red Blood Count 4.13 X10*6/uL (4.20-5.50); Red Cell Distribution Width 15.8 % (11.0-16.0); White Blood Count 7.7 X10*3/uL (4.8-10.8)
--- NOTE | 2022-11-04 19:27 | MHC.EDTECH ---
This Tech assumed care of this Patient @[id number]. PAtient EKG done and placed PT on secured entrance monitor. Bloodwork done and sent to lab for processing. at bedside
[2022-11-04 19:44] LABS: Alanine Aminotransferase 15 U/L (0-31); Albumin Level 3.7 g/dL (3.5-5.0); Alkaline Phosphatase 93 U/L (39-117); Anion Gap 16 (12-20); Aspartate Amino Transferase 9 U/L (5-31); Bilirubin Total 0.3 mg/dL (0.0-1.0); Blood Urea Nitrogen 25 mg/dL (9-16); Calcium 8.9 mg/dL (8.4-10.2); Carbon Dioxide 36 mmol/L (22-29); Chloride 95 mmol/L (96-108); Creatinine Clr Calc Pharmacy 109.3; Estimated Glomerular Filt Rate > 60; Glucose Random 237 mg/dL (60-115); Lipase 89 U/L (8-78); Potassium 4.1 mmol/L (3.3-5.1); Sodium 143 mmol/L (135-145); Total Protein 6.3 g/dL (6.5-8.0)
[2022-11-04 19:45] LABS: B Type Natriuretic Peptide 15 pg/mL (<100)
[2022-11-04 20:18] VITALS: BP 95/62; PULSE 79; RESP 17; O2SAT 97
== END 2022-11-04 22:16 | disposition home or self-care (01) ==
PROVIDERS: Physician Assistant; Emergency Provider Emergency Medicine; PCP Internal Medicine
DX: R06.02 Shortness of breath (principal); I49.8 Other specified cardiac arrhythmias; R60.0 Localized edema; Z87.891 Personal history of nicotine dependence; Z79.899 Other long term (current) drug therapy
CPT/HCPCS: 36415; 71045; 80053; 83690; 83880; 85025; 93005; 93970; 99284

== ENCOUNTER 2022-11-21 11:51 | Outpatient (REF) | payer OTHER, SELFPAY ==
--- NOTE | ~2022-11-21 | XR_ITS ---
EXAMINATION: XR CHEST CLINICAL INFORMATION: Wheezing COMPARISON: Previous chest x-ray most recent October 2022 TECHNIQUE: 2 views of the chest were obtained. FINDINGS: Limited exam due to body habitus. The cardiac silhouette is enlarged but stable. There are increased central bronchovascular markings. Differential would include airways disease and mild pulmonary edema. The lungs are otherwise clear. No pleural effusion or pneumothorax. Degenerative changes of the spine. XR/XR chest 2V IMPRESSION: Limited exam due to body habitus. Stable enlargement of the cardiac silhouette. Increased central bronchovascular markings questionable for airways disease versus mild pulmonary edema.
[2022-11-21 13:06] LABS: Anion Gap 16 (12-20); Blood Urea Nitrogen 18 mg/dL (9-16); Calcium 9.5 mg/dL (8.4-10.2); Carbon Dioxide 38 mmol/L (22-29); Chloride 93 mmol/L (96-108); Estimated Glomerular Filt Rate > 60; Glucose Random 175 mg/dL (60-115); Sodium 143 mmol/L (135-145)
[2022-11-21 13:13] LABS: B Type Natriuretic Peptide 38 pg/mL (<100)
[2022-11-21 14:00] LABS: TSH reflex Free T4 2.45 uIU/mL (0.32-4.0); Vitamin D 25-OH Total 37.1 ng/mL (>30)
== END 2022-11-21 11:52 | disposition home or self-care (01) ==
LOC: HO.LAB 11:51
PROVIDERS: Nurse Practitioner Family; Visit Provider Physician Assistant
DX: R06.2 Wheezing (principal); R60.0 Localized edema; I50.30 Unspecified diastolic (congestive) heart failure; E11.9 Type 2 diabetes mellitus without complications
CPT/HCPCS: 36415; 71046; 80048; 82306; 83880; 84443

== ENCOUNTER 2022-12-19 11:08 | Outpatient (AMB) | payer OTHER, SELFPAY ==
--- NOTE | 2022-12-19 11:38 | MHC.OFFVIS ---
Intake Vital Signs 12/19/22 11:39 Height 5 ft 5 in Weight 317 lb 14.505 oz BMI 52.9 BP 130/72 Blood Pressure Location Lt brachial Position Sitting Pulse 85 Pulse Source Pulse Oximeter Intake Visit Reasons: OVERDUE 6 MON FUP Intake Note: Overdue 6 month follow up. 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 Required: Yes 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 Language: Network Liaison Name: Flakita [id number] [employer] Accompanied by: Employee Allergies No Known Allergies Allergy (Verified 12/19/22 11:43) Medication List - Last Reconciled 12/19/22 by Pawel Tsang MD acetaminophen ER (Tylenol 8 Hour) 650 mg PO Q8H PRN 30 days [adult diapers pull-ups As directed] albuterol sulfate 2.5 mg (3 mL) inhalation Q4-6H PRN 30 days albuterol sulfate 90 mcg/actuation (ProAir HFA) 2 puffs PO Q6H PRN amlodipine 10 mg PO DAILY 90 days aspirin 81 mg PO DAILY 90 days atorvastatin 80 mg PO BEDTIME 90 days benzonatate 200 mg (2 x 100 mg) PO TID PRN dulaglutide (Trulicity) 0.75 mg subcut QWEEK fluticasone propion-salmeterol 500-50 mcg/dose (Advair Diskus) 1 puff inhalation BID fluticasone propionate 50 mcg/actuation (Flonase Allergy Relief) 1 spray intranasal DAILY 30 days furosemide 40 mg PO DAILY hydralazine 10 mg See Protocol PO BID 90 days hydrochlorothiazide 25 mg PO DAILY 90 days lidocaine 5% 1 patch topical DAILY 30 days lisinopril 10 mg See Protocol PO DAILY metformin 1,000 mg PO BID nebulizers (AeroEclipse II Nebulizer) As directed prednisone See Taper mg PO DIRECTED prednisone 40 mg (2 x 20 mg) PO DAILY sennosides (Senna Lax) 8.6 mg PO BID PRN 90 days underpads (Bed Underpads) As directed Ventolin HFA 90 mcg/actuation (albuterol sulfate) 2 puffs inhalation Q6H PRN 30 days NS verapamil 120 mg See Protocol PO BID [wipes As directed] HPI HPI Comments History of Present Illness Details 62-year-old female who is here for follow-up. She has background history of cocaine abuse and hypertensive emergency. She is morbidly obese and is on supplemental oxygen at baseline. Does not appear to be very functional. She is denying any significant symptoms. 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 She is in a wheelchair. [facility] Medical History (Updated 11/21/22 @ 15:11 by CHANTALE Nieves) Cerebrovascular accident involving posterior circulation Cocaine use disorder, mild, in sustained remission Congestive heart failure COPD (chronic obstructive pulmonary disease) COPD (chronic obstructive pulmonary disease) Diabetes mellitus Diastolic CHF Essential hypertension Mixed incontinence urge and stress Moderate asthma Morbid obesity Obesity Obesity hypoventilation syndrome Obstructive sleep apnea TAURUS (obstructive sleep apnea) Oxygen dependent Redness of left eye Surgical History History of cholecystectomy History of cholecystectomy History of open reduction and internal fixation (ORIF) procedure History of open reduction and internal fixation (ORIF) procedure History of tubal ligation History of tubal ligation Family History Father Medical history unknown Mother Diabetes Hypertension Father Medical history unknown Mother Hypertension Diabetes Other Substance use disorder Social History Household Members: Spouse Housing: Apartment Do you presently have visiting nurse or other home services: Yes Alcohol intake: never Patient Tobacco Use Status: Former Tobacco user Tobacco use type: Cigarette Cigarette Packs Per Day: 0.75 Cigarettes Per Day: 15.0 Years Smoked: 31 years e-Cigarette/Vaping Use: Never Used Second Hand Smoke Exposure: Yes Substance Use Type: Crack/Cocaine Advance Directives Date on File: 08/28/21 service: No Current occupational status: disabled Cognitive needs: Yes (walker/wheelchair/cane) Hearing needs: No Vision needs: Yes Review of Systems Const Denies weakness ENT Denies dizziness Card Denies chest pain, Denies chest pain with activity, Denies syncope, Denies rapid heart rate, Denies pedal edema, Denies edema, Denies leg edema, Denies lightheadedness, Denies palpitations, Denies dyspnea, Denies dyspnea on exertion and Denies orthopnea Resp Denies cough, Denies dyspnea and Denies dyspnea on exertion GI Denies hematochezia and Denies change in stool character Musc Denies abnormal gait, Denies muscle cramps, Denies muscle weakness, Denies numbness, Denies radiating pain into limb and Denies tingling Neuro Denies abnormal gait, Denies dizziness, Denies syncope, Denies numbness, Denies tingling and Denies weakness Endo Denies palpitations Physical Exam Vital Signs: Last Vital Signs Pulse 85 12/19/22 11:39 BP 130/72 12/19/22 11:39 BMI result Body Mass Index 52.9 GENERAL APPEARANCE: in no acute distress, pleasant. Morbidly obese. On supplemental oxygen. She was found NECK: no carotid bruit, no jugular venous distention. SKIN: no suspicious lesions, warm and dry. HEART: no murmurs, regular rate and rhythm. LUNGS: clear to auscultation bilaterally. ABDOMEN: soft, nontender. EXTREMITIES: no edema. PERIPHERAL PULSES: equal. NEUROLOGIC: No gross deficits, AAO X 3 Assessment & Plan Assessment & Plan (1) Essential hypertension: Code(s): I10 - Essential (primary) hypertension Plan 62-year-old female who is here for follow-up. She has no chest discomfort shortness of breath. She has morbid obesity and is currently on supplemental oxygen and is in a wheelchair. Blood pressure control is good. She is denying any symptoms. She should continue same medications for now. Thank you for allowing me to participate in the care of your patient. Please feel free to contact me if you have any questions. Coding Level of Care Code Est Pt Level 3 (31319) Diagnoses Essential hypertension I10
[2022-12-19 11:39] VITALS: BP 130/72; PULSE 85; BMI 52.9
== END 2022-12-19 12:40 | disposition home or self-care (01) ==
PROVIDERS: PCP Internal Medicine; Visit Provider Internal Medicine Cardiovascular Disease
DX: I10 Essential (primary) hypertension (principal)
CPT/HCPCS: 99213

== ENCOUNTER → 2022-12-19 11:08 | Outpatient (BNVA) | payer OTHER, SELFPAY | PROVIDERS: PCP Internal Medicine; Visit Provider Internal Medicine Cardiovascular Disease | DX: I16.1 Hypertensive emergency (principal); I10 Essential (primary) hypertension; E66.01 Morbid (severe) obesity due to excess calories; F14.11 Cocaine abuse, in remission; Z68.43 Body mass index [BMI] 50.0-59.9, adult; Z99.81 Dependence on supplemental oxygen; Z79.2 Long term (current) use of antibiotics; Z79.82 Long term (current) use of aspirin; Z79.4 Long term (current) use of insulin; Z79.52 Long term (current) use of systemic steroids; Z79.899 Other long term (current) drug therapy | CPT/HCPCS: 99212 ==

== ENCOUNTER 2023-01-07 13:54 | Inpatient (IN) | payer OTHER, SELFPAY ==
[2023-01-07] VITALS (12 sets, daily range): BP systolic 125–190; BP diastolic 70–96; PULSE 80–115; RESP 15–24; TEMP 36.9–37.9; O2SAT 88–96; BMI 64.5; BMI 63.7
--- NOTE | ~2023-01-07 | CT_ITS ---
EXAMINATION: CT CHEST WITHOUT CONTRAST CLINICAL INFORMATION: hypoxemia. COMPARISON: Chest x-ray this evening. TECHNIQUE: Multidetector volumetric imaging was performed from the thoracic inlet through the lung bases without contrast. Sagittal and coronal reformatted images were obtained on the technologist workstation. Soft tissue and lung algorithms evaluated. Thick slab MIP images were performed to increase nodule conspicuity. This CT examination was performed using dose optimization techniques as appropriate, variously including the following: *Automated exposure control *Adjustment of mA and/or kV according to patient size (this includes techniques or standardized protocols for targeted exams where dose is matched to indication/reason for exam; i.e. extremities or head) *Use of iterative reconstruction technique DLP: 646 mGy-cm. FINDINGS: LUNG: Lungs are hypoexpanded with bibasilar consolidation/atelectasis or some of the medial aspect of the left lower lobe and dependent right lower lobe. Mild patchy hazy airspace disease otherwise in the nondependent lung. Central airways are grossly unremarkable MEDIASTINUM: Shotty mediastinal lymph nodes but no bulky adenopathy. Small hiatal hernia CORONARY ARTERY CALCIFICATION: Absent PERICARDIUM/PLEURA: Likely tiny bilateral pleural effusions. No pericardial effusion. No pleural mass or thickening. THYROID/VISUALIZED LOWER NECK: Unremarkable. CHEST WALL/AXILLA: Unremarkable. VISUALIZED UPPER ABDOMEN: Gallbladder surgically absent BONES: Multilevel degenerative changes in the mid spine CT/CT chest wo IV con IMPRESSION: Lungs are hypoexpanded with bibasilar consolidation/atelectasis. Mild patchy hazy airspace disease otherwise. Likely tiny bilateral pleural effusions.
--- NOTE | ~2023-01-07 | XR_ITS ---
EXAMINATION: XR PORTABLE CHEST CLINICAL INFORMATION: Shortness of breath COMPARISON: 11/21/2022 TECHNIQUE: AP portable upright view of the chest FINDINGS: Cardiac silhouette is borderline enlarged. There is pulmonary venous congestion. Residual opacities are noted, consistent with pulmonary interstitial edema. Atelectasis is suspected in the lung bases. No focal consolidation. No appreciable effusion no pneumothorax. No acute osseous findings. XR/XR chest 1V IMPRESSION: Cardiomegaly with pulmonary venous congestion and mild interstitial edema, most consistent with CHF.
--- NOTE | 2023-01-07 14:02 | ECG_ITS ---
Test Reason : sob Blood Pressure : / mmHG Vent. Rate : 103 BPM Atrial Rate : 103 BPM P-R Int : 114 ms QRS Dur : 082 ms QT Int : 340 ms P-R-T Axes : 047 022 108 degrees QTc Int : 445 ms Sinus tachycardia with Premature atrial complexes Nonspecific ST and T wave abnormality Abnormal ECG When compared with ECG of 04-NOV-2022 19:08, Premature ventricular complexes are no longer Present Premature atrial complexes are now Present Nonspecific T wave abnormality now evident in Lateral leads Referred By: Rosemarie Salomon Electronically Signed By:STEPHANIE HERRERA
[2023-01-07] MEDS: Albuterol Sulfate 7.5 MG, Albuterol/Iprat 2.5/0.5MG 3 ML 3 ML INHALE ×2 (14:20→17:35)
--- NOTE | 2023-01-07 14:23 | ED.SOB ---
HPI - SOB/Dyspnea General Chief Complaint: Dyspnea Stated Complaint: SOB 60% PER EMS Time Seen by Provider: 01/07/23 14:01 Source: patient and EMS Mode of arrival: EMS History of Present Illness HPI Narrative: 62-year-old female who presents via EMS with progressively worsening shortness of breath and found to be 60% on room air at home by EMS but denies any fevers or chills. Related Data Home Medications Medication Instructions Recorded Confirmed fluticasone propionate 50 1 spray intranasal DAILY PRN 01/07/23 01/07/23 mcg/actuation nasal Allergy Symptoms spray,suspension (Flonase Allergy Relief) lidocaine 5 % topical patch 1 patch topical DAILY PRN Pain 01/07/23 01/07/23 sennosides 8.6 mg tablet (Senna 17.2 mg PO BID PRN constipation 01/07/23 01/07/23 Lax) Previous Rx's Medication Instructions Recorded underpads (Bed Underpads) #40 ea 01/23/22 wipes #200 ea 01/23/22 nebulizers (AeroEclipse II #1 ea 02/01/22 Nebulizer) atorvastatin 80 mg tablet 80 mg PO BEDTIME 90 days #90 tabs 05/18/22 albuterol sulfate 2.5 mg/3 mL 2.5 mg (3 mL) inhalation Q4-6H PRN 08/13/22 (0.083 %) solution for nebulization for wheezing 30 days #75 mL acetaminophen 650 mg 650 mg PO Q8H PRN pain 30 days #90 08/19/22 tablet,extended release (Tylenol 8 tabs Hour) hydrochlorothiazide 25 mg tablet 25 mg PO DAILY 90 days #90 tabs 09/26/22 amlodipine 10 mg tablet 10 mg PO DAILY 90 days #90 tabs 09/27/22 hydralazine 10 mg tablet 10 mg PO BID 90 days #180 tabs 10/15/22 aspirin 81 mg tablet,delayed 81 mg PO DAILY 90 days #90 tabs 10/29/22 release metformin 1,000 mg tablet 1,000 mg PO BID #180 tabs 10/29/22 verapamil 120 mg tablet 120 mg PO BID #180 tabs 10/29/22 albuterol sulfate 90 mcg/actuation 2 puff PO Q6H PRN wheezing #8.5 12/03/22 aerosol inhaler (ProAir HFA) grams furosemide 40 mg tablet 40 mg PO DAILY #30 tabs 01/01/23 adult diapers pull-ups #200 ea 01/04/23 Allergies Allergy/AdvReac Type Severity Reaction Status Date / Time No Known Allergies Allergy Verified 12/19/22 11:43 Review of Systems Review of Systems: Pertinent positives and negatives as stated in HPI [facility] Past Medical History Source: nursing notes reviewed Medical History Cerebrovascular accident involving posterior circulation Cocaine use disorder, mild, in sustained remission Congestive heart failure COPD (chronic obstructive pulmonary disease) COPD (chronic obstructive pulmonary disease) Diabetes mellitus Diastolic CHF Essential hypertension Mixed incontinence urge and stress Moderate asthma Morbid obesity Obesity Obesity hypoventilation syndrome Obstructive sleep apnea TAURUS (obstructive sleep apnea) Oxygen dependent Redness of left eye Surgical History History of cholecystectomy History of cholecystectomy History of open reduction and internal fixation (ORIF) procedure History of open reduction and internal fixation (ORIF) procedure History of tubal ligation History of tubal ligation Family History Family History Father Medical history unknown Mother Diabetes Hypertension Father Medical history unknown Mother Hypertension Diabetes Other Substance use disorder Social History Social History Household Members: Spouse Housing: Apartment Do you presently have visiting nurse or other home services: Yes Alcohol intake: never Patient Tobacco Use Status: Former Tobacco user Tobacco use type: Cigarette Cigarette Packs Per Day: 0.75 Cigarettes Per Day: 15.0 Years Smoked: 31 years Smoked in Last 30 Days: No e-Cigarette/Vaping Use: Never Used Second Hand Smoke Exposure: Yes Use of substances other than those prescribed or required for medical reasons: No Substance Use Type: Crack/Cocaine Advance Directives: Yes Advance Directives on File: Yes Advance Directives Date on File: 08/28/21 Patient : No service: No Current occupational status: disabled Cognitive needs: Yes (walker/wheelchair/cane) Hearing needs: No Vision needs: Yes Physical Exam Vital Signs: Vital Signs: Last Vital Signs Temp 99 F 01/07/23 14:04 Pulse 110 H 01/07/23 17:47 Resp 15 01/07/23 17:47 BP 149/70 H 01/07/23 17:47 Pulse Ox 92 01/07/23 17:47 O2 Del Method BiPAP 01/07/23 17:47 FiO2 50 01/07/23 17:47 Oxygen Flow Rate 15 01/07/23 14:04 BMI result Body Mass Index 64.5 VITAL SIGNS: Reviewed. GENERAL: Elevated BMI, Well developed, well nourished, in no acute distress. HEAD: Normocephalic/atraumatic EYES: PERRLA, EOMI EARS: Ext canals without abnormality NOSE: Nares patent bilateral OROPHARYNX: no oral lesions noted, posterior pharynx clear NECK: Supple, no adenopathy LUNGS: Decreased breath sounds with bibasilar rales minimal expiratory wheeze appreciated. SpO2<100> on 100% non-rebreather CARDIOVASCULAR: Regular rate and rhythm without noted murmurs, no JVD bilateral lower extremity pitting edema ABDOMEN: Soft, non-tender, non-distended with bowel sounds. MUSCULOSKELETAL: No tenderness, deformities, or effusions noted on gross inspection. EXTREMITIES: No cyanosis, clubbing or edema. SKIN: Inspection of the skin reveals no rashes NEUROLOGIC: Alert and oriented x 4. Strength and sensation to light touch were grossly intact x 4. Medications Administered Discontinued Medications Generic Name Dose Route Start Last Admin Trade Name Freq PRN Reason Stop Dose Admin Albuterol Sulfate 7.5 mg/ 0 mg 01/07/23 14:01 01/07/23 14:20 Albuterol/Ipratropium 3 ml INHALE 01/07/23 14:02 2.5 each ONCE ONE Administration Albuterol Sulfate 7.5 mg/ 0 mg 01/07/23 17:32 01/07/23 17:35 Albuterol/Ipratropium 3 ml INHALE 01/07/23 17:33 1 each ONCE ONE Administration Furosemide 80 mg 01/07/23 14:37 01/07/23 15:10 Furosemide 100 Mg/10 Ml Vial IVPUSH 01/07/23 14:38 80 mg ONCE ONE Administration Protocol Piperacillin Sod/Tazobactam 50 mls @ 100 mls/hr 01/07/23 17:33 01/07/23 18:13 Sod 3.375 gm/ Sodium Chloride IV 01/07/23 18:02 100 mls/hr ONCE ONE Administration Methylprednisolone Sodium Succinate 125 mg 01/07/23 14:01 01/07/23 15:10 Methylprednisolone Sod Succ 125 Mg/2 Ml Vial IVPUSH 01/07/23 14:02 125 mg ONCE ONE Administration Medical Decision Making Medical Decision Making [facility] Narrative: 1415: Patient placed immediately on BiPAP, 12 x 6, 40% FiO2. 62-year-old female with history and clinical presentation, DDX: Acute respiratory failure secondary to CHF/chronic lung disease, possible infection. INTERVENTION: BIPAP, Steroids, DuoNeb, 80 mg of Lasix 1556: I reviewed all investigations and I suspect acute COPD exacerbation after review of VBG which demonstrate pCO2 of 102 with pH-7.34. Hematologic indices demonstrated chronically stable normocytic anemia with mild leukocytosis with left shift which may be secondary to steroid administration prior to obtaining lab work. Patient has remained afebrile, but antibiotics will be administered. Violation studies are grossly within normal limits. Chemistry indices demonstrate bicarb of 41 without ELIZABETH and otherwise there are no electrolyte derangements. Patient has no chest pain and troponin is chronically stable at 6.9 without acute EKG changes. And although BNP is 56 both clinical exam as well as chest x-ray findings are consistent with CHF and is why patient received 80 mg of Lasix. Urinalysis is negative for evidence of UTI or hematuria Patient continues to require titration of BiPAP settings and will need to be admitted to the ICU. Current BiPAP settings are 12/8 with FiO2 45%. 1743: I consulted with Dr. Day, category manager. Differential Diagnosis Differential Diagnoses: The differential diagnosis associated with the presentation includes Please see the discussion above Admission/Observation Consideration of admission/observation: Escalation of care including admission/observation considered Please see the discussion above Consult Healthcare Provider Management of the patient was discussed with: Clinical Quality Assurance Specialist Please see the discussion above Lab Data [facility] Lab Attestation statement: I reviewed the patient's lab results. Please see the discussion above 01/07/23 15:45 01/07/23 15:44 Labs: Lab Results 01/07/23 01/07/23 01/07/23 Range/Units 15:43 15:44 15:44 WBC (4.8-10.8) X10*3/uL RBC (4.20-5.50) X10*6/uL Hgb (12.0-16.0) g/dl Hct (37.0-47.0) % MCV (80.0-98.0) fL MCH (27.0-33.0) pg MCHC (31.0-35.0) g/dl RDW (11.0-16.0) % Plt Count (160-400) X10*3/uL MPV (9.4-12.3) fL Immature Gran % (Auto) (0.0-0.4) % Neut % (Auto) (45-73) % Lymph % (Auto) (20-40) % [place] % (Auto) (2-11) % Eos % (Auto) (0-4) % Baso % (Auto) (0-2) % Lymph # (Auto) (1.2-4.9) X10*3/uL [place] # (Auto) (0.1-1.2) X10*3/uL Eos # (Auto) (0.0-0.4) X10*3/uL Baso # (Auto) (0.0-0.2) X10*3/uL Abs Immat Gran (auto) (0.00-0.03) X10*3/uL Absolute Neuts (auto) (2.0-8.3) x10*3/uL Absolute Nucleated RBC (0.0-0.012) X10*3/uL Nucleated RBC % (auto) (0.0-0.2) /100WBC PT (11.1-13.3) SEC INR (0.9-1.1) O2 Saturation % ABG pH at Pt Temp (7.35-7.45) ABG pCO2 at Pt Temp (32-45) mmHg ABG pO2 at Pt Temp (83-108) mmHg ABG HCO3 (22-26) mmol/L ABG Base Excess (Actual) mmol/L VBG pH (7.32-7.43) VBG pCO2 mmHg VBG pO2 mmHg VBG HCO3 (22-26) mmol/L VBG O2 Saturation % VBG Base Excess mmol/L Sodium 145 (135-145) mmol/L Potassium 3.6 (3.3-5.1) mmol/L Chloride 84 L (96-108) mmol/L Carbon Dioxide 41 H* (22-29) mmol/L Anion Gap 24 H (12-20) BUN 21 H (9-16) mg/dL Creatinine 0.74 (0.5-1.4) mg/dL Estim Creat Clear Calc 109.9 Estimated GFR > 60 Random Glucose 195 H (60-115) mg/dL Lactic Acid 3.5 H* (0.5-2.0) mmol/L Calcium 9.5 (8.4-10.2) mg/dL Total Bilirubin 0.5 (0.0-1.0) mg/dL AST 13 (5-31) U/L ALT 14 (0-31) U/L Alkaline Phosphatase 95 (39-117) U/L Troponin I High Sens 6.9 (<3.5-17.0) ng/L B-Natriuretic Peptide (<100) pg/mL Total Protein 7.5 (6.5-8.0) g/dL Albumin 4.1 (3.5-5.0) g/dL Urine Color Urine Appearance Urine pH (5.0-9.0) Ur Specific [place] (1.005-1.025) Urine Protein (Neg-Trace) mg/dL Urine Glucose (UA) (Negative) mg/dL Urine Ketones (Negative) mg/dL Urine Blood (Negative) Urine Nitrite (Negative) Ur Leukocyte Esterase (Negative) 01/07/23 01/07/23 01/07/23 Range/Units 15:45 15:45 15:45 WBC 13.7 H (4.8-10.8) X10*3/uL RBC 3.91 L (4.20-5.50) X10*6/uL Hgb 10.3 L (12.0-16.0) g/dl Hct 36.0 L (37.0-47.0) % MCV 92.1 (80.0-98.0) fL MCH 26.3 L (27.0-33.0) pg MCHC 28.6 L (31.0-35.0) g/dl RDW 15.9 (11.0-16.0) % Plt Count 376 D (160-400) X10*3/uL MPV 9.7 (9.4-12.3) fL Immature Gran % (Auto) 0.9 H (0.0-0.4) % Neut % (Auto) 78.0 H (45-73) % Lymph % (Auto) 13.6 L (20-40) % [place] % (Auto) 4.9 (2-11) % Eos % (Auto) 2.3 (0-4) % Baso % (Auto) 0.3 (0-2) % Lymph # (Auto) 1.9 (1.2-4.9) X10*3/uL [place] # (Auto) 0.7 (0.1-1.2) X10*3/uL Eos # (Auto) 0.3 (0.0-0.4) X10*3/uL Baso # (Auto) 0.0 (0.0-0.2) X10*3/uL Abs Immat Gran (auto) 0.12 H (0.00-0.03) X10*3/uL Absolute Neuts (auto) 10.7 H (2.0-8.3) x10*3/uL Absolute Nucleated RBC 0.020 H (0.0-0.012) X10*3/uL Nucleated RBC % (auto) 0.1 (0.0-0.2) /100WBC PT 11.6 (11.1-13.3) SEC INR 1.0 (0.9-1.1) O2 Saturation % ABG pH at Pt Temp (7.35-7.45) ABG pCO2 at Pt Temp (32-45) mmHg ABG pO2 at Pt Temp (83-108) mmHg ABG HCO3 (22-26) mmol/L ABG Base Excess (Actual) mmol/L VBG pH (7.32-7.43) VBG pCO2 mmHg VBG pO2 mmHg VBG HCO3 (22-26) mmol/L VBG O2 Saturation % VBG Base Excess mmol/L Sodium (135-145) mmol/L Potassium (3.3-5.1) mmol/L Chloride (96-108) mmol/L Carbon Dioxide (22-29) mmol/L Anion Gap (12-20) BUN (9-16) mg/dL Creatinine (0.5-1.4) mg/dL Estim Creat Clear Calc Estimated GFR Random Glucose (60-115) mg/dL Lactic Acid (0.5-2.0) mmol/L Calcium (8.4-10.2) mg/dL Total Bilirubin (0.0-1.0) mg/dL AST (5-31) U/L ALT (0-31) U/L Alkaline Phosphatase (39-117) U/L Troponin I High Sens (<3.5-17.0) ng/L B-Natriuretic Peptide 56 (<100) pg/mL Total Protein (6.5-8.0) g/dL Albumin (3.5-5.0) g/dL Urine Color Urine Appearance Urine pH (5.0-9.0) Ur Specific [place] (1.005-1.025) Urine Protein (Neg-Trace) mg/dL Urine Glucose (UA) (Negative) mg/dL Urine Ketones (Negative) mg/dL Urine Blood (Negative) Urine Nitrite (Negative) Ur Leukocyte Esterase (Negative) 01/07/23 01/07/23 01/07/23 Range/Units 15:56 16:15 17:07 WBC (4.8-10.8) X10*3/uL RBC (4.20-5.50) X10*6/uL Hgb (12.0-16.0) g/dl Hct (37.0-47.0) % MCV (80.0-98.0) fL MCH (27.0-33.0) pg MCHC (31.0-35.0) g/dl RDW (11.0-16.0) % Plt Count (160-400) X10*3/uL MPV (9.4-12.3) fL Immature Gran % (Auto) (0.0-0.4) % Neut % (Auto) (45-73) % Lymph % (Auto) (20-40) % [place] % (Auto) (2-11) % Eos % (Auto) (0-4) % Baso % (Auto) (0-2) % Lymph # (Auto) (1.2-4.9) X10*3/uL [place] # (Auto) (0.1-1.2) X10*3/uL Eos # (Auto) (0.0-0.4) X10*3/uL Baso # (Auto) (0.0-0.2) X10*3/uL Abs Immat Gran (auto) (0.00-0.03) X10*3/uL Absolute Neuts (auto) (2.0-8.3) x10*3/uL Absolute Nucleated RBC (0.0-0.012) X10*3/uL Nucleated RBC % (auto) (0.0-0.2) /100WBC PT (11.1-13.3) SEC INR (0.9-1.1) O2 Saturation 86.0 % ABG pH at Pt Temp 7.40 (7.35-7.45) ABG pCO2 at Pt Temp 103 H* (32-45) mmHg ABG pO2 at Pt Temp 63 L (83-108) mmHg ABG HCO3 64 H (22-26) mmol/L ABG Base Excess (Actual) 32.1 mmol/L VBG pH 7.34 (7.32-7.43) VBG pCO2 102 mmHg VBG pO2 63 mmHg VBG HCO3 56 H (22-26) mmol/L VBG O2 Saturation 86.0 % VBG Base Excess 24.7 mmol/L Sodium (135-145) mmol/L Potassium (3.3-5.1) mmol/L Chloride (96-108) mmol/L Carbon Dioxide (22-29) mmol/L Anion Gap (12-20) BUN (9-16) mg/dL Creatinine (0.5-1.4) mg/dL Estim Creat Clear Calc Estimated GFR Random Glucose (60-115) mg/dL Lactic Acid (0.5-2.0) mmol/L Calcium (8.4-10.2) mg/dL Total Bilirubin (0.0-1.0) mg/dL AST (5-31) U/L ALT (0-31) U/L Alkaline Phosphatase (39-117) U/L Troponin I High Sens (<3.5-17.0) ng/L B-Natriuretic Peptide (<100) pg/mL Total Protein (6.5-8.0) g/dL Albumin (3.5-5.0) g/dL Urine Color Yellow Urine Appearance Clear Urine pH 5.5 (5.0-9.0) Ur Specific [place] 1.010 (1.005-1.025) Urine Protein Negative (Neg-Trace) mg/dL Urine Glucose (UA) Negative (Negative) mg/dL Urine Ketones Negative (Negative) mg/dL Urine Blood Negative (Negative) Urine Nitrite Negative (Negative) Ur Leukocyte Esterase Negative (Negative) Independent Interpretation I performed an independent interpretation of an: EKG Interpretation: Sinus tachycardia with PACs, HR-103, no STEMI, TN/QRS/QTC is within normal limits. Radiology Impression Radiologist Impression: No pneumonia but there is evidence to support CHF otherwise my interpretation is in agreement with radiology's impression. External Record Review External record reviewed: Outpatient record and Prior outpatient labs Chronic Conditions Patient?s care impacted by: Hypertension COPD, CHF Critical Care Time Critical Care Time Critical Care Time: Yes Total Critical Care Time: 60 Attestation: I personally attest to this time spent taking care of the patient. Discharge Plan Discharge Clinical Impression: Acute on chronic respiratory failure with hypoxemia, Hypercapnia, COPD exacerbation, CHF exacerbation Patient Disposition: Admitted As Inpatient
[2023-01-07] MEDS: methylPREDNISolone Sod Succ 125 MG/2 ML VIAL IVPUSH (15:10)
[2023-01-07] MEDS: Furosemide 100 MG/10 ML VIAL 80 MG IVPUSH (15:10)
[2023-01-07 15:59] LABS: MANUAL DIFF FLAG NO
[2023-01-07 16:02] LABS: Basophils Percent Auto 0.3 % (0-2); Eosinophils Absolute Auto 0.3 X10*3/uL (0.0-0.4); Eosinophils Percent Auto 2.3 % (0-4); Hemoglobin 10.3 g/dl (12.0-16.0); Imm Gran Abs Auto 0.12 X10*3/uL (0.00-0.03); Imm Gran Pct Auto 0.9 % (0.0-0.4); Lymphocytes Absolute Auto 1.9 X10*3/uL (1.2-4.9); Lymphocytes Percent Auto 13.6 % (20-40); Mean Corpuscular HGB Conc 28.6 g/dl (31.0-35.0); Mean Corpuscular Hemoglobin 26.3 pg (27.0-33.0); Mean Corpuscular Volume 92.1 fL (80.0-98.0); Mean Platelet Volume 9.7 fL (9.4-12.3); Monocytes Absolute Auto 0.7 X10*3/uL (0.1-1.2); Monocytes Percent Auto 4.9 % (2-11); NRBC Pct Auto 0.1 /100WBC (0.0-0.2); Neutrophils Absolute Auto 10.7 x10*3/uL (2.0-8.3); Platelet Count 376 X10*3/uL (160-400); Red Blood Count 3.91 X10*6/uL (4.20-5.50); Red Cell Distribution Width 15.9 % (11.0-16.0); White Blood Count 13.7 X10*3/uL (4.8-10.8)
[2023-01-07 16:05] LABS: VBG Base Excess 24.7 mmol/L; VBG HCO3 56 mmol/L (22-26); VBG pCO2 102 mmHg; VBG pH 7.34 (7.32-7.43); VBG pO2 63 mmHg
[2023-01-07 16:05] LABS: Venous Blood Gas Refer to POC result
--- NOTE | 2023-01-07 16:06 | MHC.EDTECH ---
pt changed into hospital karin macdonald applied per pt and rn
[2023-01-07 16:14] LABS: Prothrombin Time 11.6 SEC (11.1-13.3)
[2023-01-07 16:20] LABS: Lactic Acid 3.5 mmol/L (0.5-2.0)
[2023-01-07 16:22] LABS: B Type Natriuretic Peptide 56 pg/mL (<100)
[2023-01-07 16:22] LABS: Alanine Aminotransferase 14 U/L (0-31); Albumin Level 4.1 g/dL (3.5-5.0); Alkaline Phosphatase 95 U/L (39-117); Anion Gap 24 (12-20); Aspartate Amino Transferase 13 U/L (5-31); Bilirubin Total 0.5 mg/dL (0.0-1.0); Blood Urea Nitrogen 21 mg/dL (9-16); Calcium 9.5 mg/dL (8.4-10.2); Carbon Dioxide 41 mmol/L (22-29); Chloride 84 mmol/L (96-108); Creatinine Clr Calc Pharmacy 109.9; Estimated Glomerular Filt Rate > 60; Glucose Random 195 mg/dL (60-115); Potassium 3.6 mmol/L (3.3-5.1); Sodium 145 mmol/L (135-145); Total Protein 7.5 g/dL (6.5-8.0)
[2023-01-07 16:23] LABS: Troponin-I High Sensitivity 6.9 ng/L (<3.5-17.0)
[2023-01-07 16:26] LABS: Appearance Urine Clear; Color Urine Yellow; Glucose Urine UA Negative (Negative); Leukocyte Esterase Urine Negative (Negative); Nitrite Urine Negative (Negative); PH 5.5 (5.0-9.0); Urine Blood Negative (Negative); Urine Ketones Negative (Negative); Urine Protein Negative (Neg-Trace)
--- NOTE | 2023-01-07 16:47 | MHC.EDTECH ---
300 ml urine emptied from purewick. ua sent to lab.
[2023-01-07 17:23] LABS: ABG Refer to POC result
[2023-01-07 17:24] LABS: ABG Base Excess 32.1 mmol/L; ABG HCO3 64 mmol/L (22-26); ABG pCO2 103 mmHg (32-45); ABG pO2 63 mmHg (83-108)
[2023-01-07 17:55] LABS: Reflex Lactate? Lactic Acid Added
[2023-01-07] MEDS: Piperacillin Sodium/Tazobactam 3.375 GM in 0.9 % Sodium Chloride 50 ML IV ×2 (18:13→23:37)
--- NOTE | 2023-01-07 18:16 | PHA.MEDREC ---
Pharmacy Consult ? Medication Reconciliation Pharmacy has completed the medication reconciliation. Utilized analytical statistician to speak with patient & . Patient brought in RX bottles. Reports her lisinopril was stop. Reports have not had a maintenance inhaler since last admission. reported they ran out of her water pill so she has not had it today. Unsure how long patient has been out of lasix. Minerva Rawls, PharmD
[2023-01-07 18:40] LABS: ~Lactic Acid-LAB USE ONLY 2.5 mmol/L (0.5-2.0)
--- NOTE | 2023-01-07 19:30 | MHC.EDTECH ---
700 ml urine drained from purewick
[2023-01-07 20:19] LABS: Reflex Lactate? 2 Y
--- OUTSIDE RECORDS SUMMARY | 2023-01-07 20:36 | XMS_ITS | Continuity of Care Document ---
Author Name Unknown Organization [facility] ter Address [address] [place] [phone]- Care Team Providers Care Walnut Dehydrator Operator Name Role Phone Constantin Dubois MD, Dolores Arevalo Primary Care Physician [phone] [place] [facility] [id number] Date(s): 11/25/21 - 12/02/[address] [address] Discharge Disposition: A-D/C Home Attending Physician: Andrew Marshall MD Admitting Physician: Thad Langley MD Referring Physician: Not on Staff, Referring MD Allergies, Adverse Reactions, Alerts No Known Allergies Immunizations Given and Recorded Vaccine Date Status Refusal Reason SARS-CoV-2 (COVID-19) mRNA BNT-162b2 vac 01/17/21 Recorded SARS-CoV-2 (COVID-19) mRNA BNT-162b2 vac 12/28/20 Recorded Medications acetaminophen 650 mg oral tablet, extended release TAKE 1 TABLET BY MOUTH EVERY 8 HOURS NEEDED FOR PAIN Start Date: 11/26/21 Status: Ordered acetaZOLAMIDE 250 mg oral tablet 250 mg, 1, tablet, By Mouth, 2 times a day, # 120 tablet, Refills 5, Maintenance, 11/26/21 1:29:00 EDT, Partial fill upon patient request if the prescription is for a schedule II opioid drug. Start Date: 11/26/21 Status: Ordered Advair Diskus 500 mcg-50 mcg inhalation powder 1, inhalation, Inhalation, 2 times a day, rinse mouth and throat after use, # 1 each, Refills 0, Tot. Refills 0, Maintenance, 12/02/21 8:46:00 EDT, Powder, Route to Pharmacy Electronically, [id number], [facility]... Start Date: 12/02/21 Stop Date: 01/01/22 Status: Ordered amLODIPine 10 mg oral tablet 10 mg, 1, tablet, By Mouth, Daily, # 30 tablet, Refills 0, Tot. Refills 0, Maintenance, 12/02/21 8:42:00 EDT, Route to Pharmacy Electronically, [facility], Partial fill upon patient request if the prescription is for a schedule II opioid... Start Date: 12/02/21 Stop Date: 01/01/22 Status: Ordered amLODIPine 10 mg oral tablet 10 mg, Tablet, By Mouth, 12/02/21 9:00:00 EDT Start Date: 12/02/21 Stop Date: 12/02/21 Status: Completed Aspirin Low Dose 81 mg oral delayed release tablet 1 tablet = 81 mg, By Mouth, Daily, # 30 tablet, 0 Refills, Maintenance, 11/26/21 0:42:00 EDT, EC Tablet, Partial fill upon patient request if the prescription is for a schedule II opioid drug. Start Date: 11/26/21 Status: Ordered atorvastatin 80 mg oral tablet 1 tablet = 80 mg, By Mouth, Daily, # 90 tablet, 0 Refills, Maintenance, 11/26/21 0:43:00 EDT, Tablet, Partial fill upon patient request if the prescription is for a schedule II opioid drug. Start Date: 11/26/21 Status: Ordered Combivent Respimat 20 mcg-100 mcg/inh inhalation aerosol 1 puffs, Inhalation, 4 times a day, # 4 Gm, 0 Refills, Maintenance, 11/26/21 0:42:00 EDT, Aerosol, Partial fill upon patient request if the prescription is for a schedule II opioid drug. Start Date: 11/26/21 Status: Ordered hydrALAZINE 10 mg oral tablet 10 mg, 1, tablet, By Mouth, 3 times a day, # 90 tablet, Refills 0, Maintenance, 11/26/21 0:43:00 EDT, Partial fill upon patient request if the prescription is for a schedule II opioid drug. Start Date: 11/26/21 Status: Ordered hydrALAZINE 25 mg oral tablet 50 mg, Tablet, By Mouth, Hold for: SBP <110, 12/02/21 9:00:00 EDT Start Date: 12/02/21 Stop Date: 12/02/21 Status: Completed lidocaine 5% topical film 1 patch, Topically, Daily, PRN Pain , Mild, remove after 12 hours, # 13 each, 0 Refills, Maintenance, 11/26/21 0:42:00 EDT, Film, Partial fill upon patient request if the prescription is for a schedule II opioid drug. Start Date: 11/26/21 Status: Ordered lisinopril 10 mg oral tablet 10 mg, 1, tablet, By Mouth, Daily, # 30 tablet, Refills 0, Maintenance, 11/26/21 0:43:00 EDT, Partial fill upon patient request if the prescription is for a schedule II opioid drug. Start Date: 11/26/21 Status: Ordered metFORMIN 500 mg oral tablet 1 tablet = 500 mg, By Mouth, 2 times a day, # 180 tablet, 0 Refills, Maintenance, 11/26/21 0:43:00 EDT, Tablet, Partial fill upon patient request if the prescription is for a schedule II opioid drug. Start Date: 11/26/21 Status: Ordered Polymyxin B-Trimethoprim Ophthalmic 3 times a day, 0 Refills, Maintenance, 12/01/21 20:25:00 EDT, Partial fill upon patient request if the prescription is for a schedule II opioid drug. Start Date: 12/01/21 Status: Ordered predniSONE 10 mg oral tablet See Instructions, 5 tablet By Mouth Daily X 3days 4 tablet By Mouth Daily X 3days 3 tablet By MouthDaily X 3days 2 tablet By Mouth Daily X 3days 1 tablet By Mouth Daily X 3days, # 45 tablet, 0 Refills, Maintenance, 12/02/21 8:40:00 EDT, Tablet, B... Start Date: 12/02/21 Status: Ordered ProAir HFA 90 mcg/inh inhalation aerosol with adapter INHALE 2 PUFFS BY MOUTH EVERY 6 HOURS NEEDED FOR WHEEZE Start Date: 11/26/21 Status: Ordered Problem List Condition Effective Dates Status Health Status Inform ant Severe obesity(Confirmed) Active Results Orders for Microbiology Reports Name Date Urine Culture 11/30/21 Blood Culture 11/25/21 Blood Culture #2 11/25/21 Microbiology Reports TEST:Urine Culture STATUS:Auth (Verified) BODY SITE: SOURCE:URINE COLLECTED DATE/TIME:11/30/21 1:40 PM Urine Culture SPECIMEN DESCRIPTION : URINE STRAIGHT CATH. SPECIAL REQUESTS : NONE CULTURE : 50-100,000 COL/ML STAPHYLOCOCCUS HAEMOLYTICUS Formerly reported as Staph species not Staph aureus. This isolate was identified using Maldi-TOF system 50-100,000 COL/ML ENTEROCOCCUS FAECIUM, VANCOMYCIN RESISTANT. These AST results were performed on the [employer] ID and AST system REPORT STATUS : FINAL 12/02/2021 ORGANISM 50-100,000 COL/ML STAPHYLOCOCCUS HAEMOLYTICUS Formerly reported as Staph species not Staphaureus. This isolate was identified using Maldi-TOF system METHOD MIN. INHIB. CONC. (MCG/ML) CIPROFLOXACIN RESISTANT LEVOFLOXACIN RESISTANT NITROFURANTOIN SUSCEPTIBLE RIFAMPIN RESISTANT TRIMETH/SULFAMETHOX RESISTANT VANCOMYCIN SUSCEPTIBLE ORGANISM 50-100,000 COL/ML ENTEROCOCCUS FAECIUM, VANCOMYCIN RESISTANT. METHOD MIN. INHIB. CONC. (MCG/ML) AMPICILLIN RESISTANT CIPROFLOXACIN RESISTANT NITROFURANTOIN SUSCEPTIBLE LEVOFLOXACIN RESISTANT LINEZOLID SUSCEPTIBLE VANCOMYCIN RESISTANT TETRACYCLINE RESISTANT GENTAMICIN SYNERGY ACTIVE IN SYNERGY STREPTOMYCIN SYNERGY NOT ACTIVE IN SYNERGY TEST:Blood Culture, Second Order STATUS:Auth (Verified) BODY SITE: SOURCE:Blood COLLECTED DATE/TIME:11/25/21 6:50 PM Blood Culture, Second Order SPECIMEN DESCRIPTION : BLOOD RAC SPECIAL REQUESTS : NONE CULTURE : NO GROWTH 5 DAYS. REPORT STATUS : FINAL 11/30/2021 TEST:Blood Culture STATUS:Auth (Verified) BODY SITE: SOURCE:Blood COLLECTED DATE/TIME:11/25/21 6:27 PM Blood Culture SPECIMEN DESCRIPTION : BLOOD L HAND SPECIAL REQUESTS : NONE CULTURE : NO GROWTH 5 DAYS. REPORT STATUS : FINAL 11/30/2021 Radiology Reports * Exam Date Time Procedure Performing Provider Status 11/25/21 6:37 PM Chest Portable Do , Wallace; Auth (Veri fied) Notes: (Chest Portable) Reason For Exam: Cough RESULT: Chest Portable AP upright portable chest dated November 25, 2021 1831 hours. No prior studies are available. HISTORY: Cough. FINDINGS: The cardiac silhouette is increased in size. Hilar and mediastinal structures are unremarkable. Some minimal perihilar interstitial thickening is noted. Minimal right lower lobe atelectasisor pneumonia. No pleural effusion is identified. Degenerative changes are noted in the spine and shoulders. IMPRESSION: Minimal perihilar interstitial thickening which could represent edema versus infection. Minimal right lower lobe atelectasis or pneumonia. Examination [address]. Thank you for allowing me to participate in the care of this patient. WSN: [id number] Ordering Physician: Won Robertson Dictated By: Bhavesh March MD Dictated Date/Time: 11/25/21 6:46 pm Reviewed By: Bhavesh March MD Signed By: Bhavesh March MD Signed Date/Time: 11/25/21 6:46 pm Transcribed By: MISBAH Transcribed Date/Time: 11/25/21 6:46 pm Vital Signs Most recent to oldest [Reference Range]: 1 2 3 Height 152 cm (11/26/21 12:40 AM) Weight 116 kg (11/26/21 12:40 AM) Oxygen Saturation [94-100 %] 100 % (12/02/21 6:00 AM) 99 % (12/02/21 4:00 AM) 99 % (12/02/21 3:36 AM) Pulse Rate [55-90 bpm] 90 bpm (12/02/21 6:00 AM) 88 bpm (12/02/21 2:00 AM) 65 bpm (12/01/21 10:00 PM) Body Mass Index [18.5-24.99] 50.21 *>HHI* (11/26/21 12:40 AM) Blood Pressure [90-138/55-84 mm Hg] 154/94mm Hg *H* (12/02/21 8:45 AM) 154/94mm Hg *H* (12/02/21 8:45 AM) 147/91mm Hg *H* (12/02/21 6:00 AM) Respiratory Rate [16-30 br/min] 19 br/min (12/02/21 6:00 AM) 10 br/min *L* (12/02/21 4:00 AM) 14 br/min *L* (12/02/21 2:00 AM) Temperature [96.8-100.4 DegF] 98 DegF (12/02/21 6:00 AM) 97.9 DegF (12/02/21 2:00 AM) 96.7 DegF *L* (12/01/21 10:00 PM) Liters per Minute 1 L/min (11/30/21 3:00 PM) 2 L/min (11/28/21 6:00 AM) 2 L/min (11/27/21 6:00 PM) Mode of Delivery (Oxygen) Room air (12/02/21 6:00 AM) BiPAP (12/02/21 2:00 AM) BiPAP (12/01/21 10:00 PM) Blood pressure sites Arm, right (12/02/21 6:00 AM) Arm, right (12/02/21 2:00 AM) Arm, right (12/01/21 10:00 PM) Temperature Route Oral (12/02/21 6:00 AM) Axillary (12/02/21 2:00 AM) Axillary (12/01/21 10:00 PM) Dry Weight 116 kg (11/26/21 12:40 AM)
--- OUTSIDE RECORDS SUMMARY | 2023-01-07 20:36 | XMS_ITS | Continuity of Care Document ---
Author Name Unknown Organization [facility] ter Address [address] [place] [address]- Care Team Providers Care Outpatient Scheduler Name Role Phone Constantin Dubois MD, Martha Primary Care Physician [phone] Encounter [facility] [place] [place]CT R [id number] Date(s): 11/25/21 - 12/25/[address] [address]- Attending Physician: Thad Langley MD Referring Physician: Not [...] 8:46:00 EDT, Powder, Route to Pharmacy Electronically, [id number], [facility]. Start Date: 12/02/21 Stop Date: 01/01/22 Status: Ordered amLODIPine 10 mg oral tablet 10 mg, 1, tablet, By Mouth, Daily, # 30 tablet, Refills 0, Tot. Refills 0, Maintenance, 12/02/21 8:42:00 EDT, Route to Pharmacy Electronically, [facility], Partial fill upon patient request if the prescription is for a schedule II opioid... Start Date: 12/02/21 Stop Date: 01/01/22 Status: Ordered Aspirin Low Dose 81 mg oral delayed [...] opioid drug. Start Date: 11/26/21 Status: Ordered lidocaine 5% topical film 1 patch, Topically, [...]
--- OUTSIDE RECORDS SUMMARY | 2023-01-07 20:36 | XMS_ITS | Continuity of Care Document ---
Author Name Unknown Organization [facility] ter Address [address] [place] [address]- Care Team Providers Care Gastroenterology Manager Name Role Phone Javy JEAN, Elizabeth Primary Care Physician [phone] [place] [facility] [place] - 03/26/[address] [address]- Encounter Diagnosis Sleep apnea(Final) - 03/26/22 Discharge Disposition: A-D/C Home Attending Physician: Katie Box MD Admitting Physician: Katie Box MD Referring Physician: Not on Staff, Referring [...] 8:46:00 EDT, Powder, Route to Pharmacy Electronically, [id number], [facility]... Start Date: 12/02/21 Stop Date: 01/01/22 Status: Ordered amLODIPine 10 mg oral tablet 10 mg, 1, tablet, By Mouth, Daily, # 30 tablet, Refills 0, Tot. Refills 0, Maintenance, 12/02/21 8:42:00 EDT, Route to Pharmacy Electronically, [facility], Partial fill upon patient request if [...] Date: 11/26/21 Status: Ordered Problem List Condition Confirmation Course Effective Dates Status Health St atus Informant Severe obesity Confirmed Active Results Radiology Reports * Exam Date Time Procedure Performing Provider Status 03/26/22 3:04 AM Chest 2 Views Frontal and Lat John James (Verified) Notes: (Chest 2 Views Frontal and Lat) Reason For Exam: Shortness of Breath RESULT: Chest 2 Views Frontal and Lat Examination: Chest performed on 03/26/2022. History: Hypoxia Findings: Frontal and lateral views of the chest are compared to a prior study dated 11/25/2021. The cardiac and mediastinal silhouettes are within normal limits. The lungs are clear. The osseous and soft tissue structures are unremarkable. Impression: There is no acute cardiopulmonary disease. WSN: [id number] Ordering Physician: Doretha Ram Dictated By: Tita Mcgrath MD Dictated Date/Time: 03/26/22 8:21 am Reviewed By: Tita Mcgrath MD Signed By: Tita Mcgrath MD Signed Date/Time: 03/26/22 8:21 am Transcribed By: MISBAH Transcribed Date/Time: 03/26/22 8:20 am Vital Signs Most recent to oldest [Reference Range]: 1 2 3 4 Oxygen Saturation [94-100 %] 95 % (03/26/22 4:35 AM) 97 % (03/26/22 1:58 AM) 98 % (03/26/22 1:11 AM) 96 % (03/26/22 1:11 AM) Pulse Rate [55-90 bpm] 102 bpm *H* (03/26/22 4:35 AM) 97 bpm *H* (03/26/22 1:58 AM) 106 bpm *H* (03/26/22 1:11 AM) Blood Pressure [90-138/55-84 mm Hg] 110/90mm Hg (03/26/22 4:35 AM) 108/90mm Hg (03/26/22 1:58 AM) 129/75mm Hg (03/26/22 1:11 AM) Respiratory Rate [16-30 br/min] 21 br/min (03/26/22 4:35 AM) 14 br/min *L* (03/26/22 1:58 AM) 27 br/min (03/26/22 1:11 AM) Temperature [96.8-100.4 DegF] 98.2 DegF (03/26/22 1:11 AM) Liters per Minute 3 L/min (03/26/22 4:35 AM) 3 L/min (03/26/22 1:58 AM) 4 L/min (03/26/22 1:11 AM) 4 L/min (03/26/22 1:11 AM) Mode of Delivery (Oxygen) Nasal cannula (03/26/22 4:35 AM) Nasal cannula (03/26/22 1:58 AM) Nasal cannula (03/26/22 1:11 AM) Nasal cannula (03/26/22 1:11 AM) Blood pressure sites Arm, right (03/26/22 4:35 AM) Arm, right (03/26/22 1:58 AM) Arm, right (03/26/22 1:11 AM) Temperature Route Oral (03/26/22 1:11 AM) Note * BHSPowerscribe , CIS S: TRANSCRIBE Tita Mcgrath MD: VERIFY Event Display: Result: Authored Date: [id number] Examination: Chest performed on 03/26/2022. History: Hypoxia Findings: Frontal and lateral views of the chest are compared to a prior study dated 11/25/2021. The cardiac and mediastinal silhouettes are within normal limits. The lungs are clear. The osseous and soft tissue structures are unremarkable. Impression: There is no acute cardiopulmonary disease. WSN: [id number] Ordering Physician: Doretha Ram Dictated By: Tita Mcgrath MD Dictated Date/Time: 03/26/22 8:21 am Reviewed By: Tita Mcgrath MD Signed By: Tita Mcgrath MD Signed Date/Time: 03/26/22 8:21 am Transcribed By: MISBAH Transcribed Date/Time: 03/26/22 8:20 am Patient Care team information Personnel Name: Elizabeth Palafox MD Address: Address: [address] [place] [id number]
[2023-01-07] MEDS: Heparin Sodium,Porcine 5,000 UNIT/ML VIAL 5000 UNIT SUBCUT (20:56)
[2023-01-07] MEDS: Azithromycin 500 MG in 0.9 % Sodium Chloride 250 ML 125 MG IV (21:01)
--- NOTE | 2023-01-07 21:50 | P.HPCC_ITS ---
History of Present Illness Date of Service: 01/07/23 Attending physician on admission: Dariel Day Chief Complaint: Acute hypercapnic respiratory failure Ms. Sanchez is a 62-year-old Ecuadorean-speaking only female with past medical history of chronic hypercapnic hypoxemic respiratory failure related to COPD on 2 L supplemental O2 at baseline, morbid obesity, TAURUS on CPAP with obesity hypoventilation syndrome, diastolic congestive heart failure, hypertens ion, CVA,? [id number] type 2 diabetes, hyperlipidemia, cocaine abuse and hypertensive emergency. She was BIBA? with progressively worsening shortness of breath and found to be 60% on room air at home by EMS. She denied any fevers or chills.? On arrival to the emergency room, the patient's blood pressure 154/79, heart rate 106, temp 99.0,? O2 sat 96% on 15 L? non-rebreather.?? Laboratory data significant for WBC? 13.7,? chloride 84, carbon dioxide 41, anion gap 24, BUN 21, creatinine 0.74, initial lactic acid 3.5, 2 hour follow-up 2.5, BNP 56. VBG showed a pH 7.34, pCO2 102, PO2 63, HC03 56, B.E.? 24.7. Urinalysis was negative for UTI or hematuria.? Imaging: XR/XR chest 1V: Cardiomegaly with pulmonary venous congestion and mild interstitial edema, most consistent with CHF. CT/CT chest wo IV con: Lungs are hypoexpanded with bibasilar consolidation/atelectasis. Mild patchy hazy airspace disease otherwise. Likely tiny bilateral pleural effusions. ? ED COURSE:?The patient was? placed on BiPAP.? She was given [id number] mg, a DuoNeb, Lasix 80 mg, and? Zosyn 3.375 g. The patient was admitted to ICU for acute hypercapnic respiratory failure requiring BiPAP. Review of Systems Review of Systems: Yes all other systems are reviewed and are negative Constitutional: Constitutional: Reports no additional constitutional complaints, Denies body ache(s), Denies chills, Denies malaise and Reports weakness (occasional weakness of both left extremities - residual from prev stroke) Respiratory: Respiratory: Reports as per HPI and Reports no additional respiratory complaints Neurologic: Reports weakness (occasional weakness of both left extremities - residual from prev stroke) [facility] Past Medical History Medical History Cerebrovascular accident involving posterior circulation Cocaine use disorder, mild, in sustained remission Congestive heart failure COPD (chronic obstructive pulmonary disease) COPD (chronic obstructive pulmonary disease) Diabetes mellitus Diastolic CHF Essential hypertension Mixed incontinence urge and stress Moderate asthma Morbid obesity Obesity Obesity hypoventilation syndrome Obstructive sleep apnea TAURUS (obstructive sleep apnea) Oxygen dependent Redness of left eye Functional capacity: uses cane/walker Family History Family History Father Medical history unknown Mother Diabetes Hypertension Father Medical history unknown Mother Hypertension Diabetes Other Substance use disorder Surgical History Surgical History History of cholecystectomy History of cholecystectomy History of open reduction and internal fixation (ORIF) procedure History of open reduction and internal fixation (ORIF) procedure History of tubal ligation History of tubal ligation Social History Social History Household Members: Spouse Housing: House Do you presently have visiting nurse or other home services: Yes Alcohol intake: never Patient Tobacco Use Status: Former Tobacco user Tobacco use type: Cigarette Cigarette Packs Per Day: 0.75 Cigarettes Per Day: 15.0 Years Smoked: 31 years Smoked in Last 30 Days: No e-Cigarette/Vaping Use: Never Used Second Hand Smoke Exposure: Yes Use of substances other than those prescribed or required for medical reasons: No Substance Use Type: Crack/Cocaine Have you been hit, kicked, punched, or otherwise hurt by someone within the past year? If so, by whom?: No Do you feel safe in your current relationship?: Yes Is there a partner from a previous relationship who is making you feel unsafe now?: No Are you made to feel afraid or neglected: No Advance Directives: Yes Advance Directives on File: Yes Advance Directives Date on File: 08/28/21 Do you have thoughts of harming others: None Recently lost weight without trying: No Nutrition Risks: No Nutritional Risk Patient : No service: No Current occupational status: disabled Cognitive needs: Yes (walker/wheelchair/cane) Hearing needs: No Vision needs: Yes Meds Allergies Allergy/AdvReac Type Severity Reaction Status Date / Time No Known Allergies Allergy Verified 12/19/22 11:43 Active Medications: Current Medications Albuterol Sulfate (Albuterol Sulfate (0.083%) 2.5 Mg/3 Ml Vial.Neb) 2.5 mg INHALE Q4H PRN PRN Reason: for wheezing Heparin Sodium (Porcine) (Heparin Sodium,Porcine 5,000 Unit/Ml Vial) 5,000 unit SUBCUT Q8H [facility] Last Admin: 01/07/23 20:56 Dose: 5,000 unit Azithromycin 500 mg/ Sodium (Chloride) 250 mls @ 125 mls/hr IV ONCE ONE Stop: 01/07/23 22:23 Last Admin: 01/07/23 21:01 Dose: 125 mls/hr Methylprednisolone Sodium Succinate (Methylprednisolone Sod Succ 125 Mg/2 Ml Vial) 60 mg IVPUSH Q8H [facility] Pharmacy Consult (Consult Rx Perform Med Rec) 1 each MISCELLANE ONCE PRN PRN Reason: Consult order Home Medications Medication Instructions Recorded Confirmed Last Taken Type fluticasone propionate 50 1 spray intranasal DAILY PRN 01/07/23 01/07/23 Unknown History mcg/actuation nasal Allergy Symptoms spray,suspension (Flonase Allergy Relief) lidocaine 5 % topical patch 1 patch topical DAILY PRN Pain 01/07/23 01/07/23 Unknown History sennosides 8.6 mg tablet (Senna 17.2 mg PO BID PRN constipation 01/07/23 01/07/23 Unknown History Lax) Physical Exam Vital Signs: Vital Signs: Last Vital Signs Temp 100.2 F 01/07/23 20:52 Pulse 114 H 01/07/23 20:52 Resp 16 01/07/23 20:52 BP 144/91 H 01/07/23 20:52 Pulse Ox 93 01/07/23 20:52 O2 Del Method BiPAP 01/07/23 20:52 FiO2 50 01/07/23 19:56 Oxygen Flow Rate 15 01/07/23 14:04 BMI result Body Mass Index 63.7 Const: General: no acute distress and alert Nutritional Appearance: obese Orientation/consciousness: patient oriented x3 (answering appropriately.) Limitations: wheelchair HEENT: Head: Yes normocephalic and Yes atraumatic General nose exam: Normal external nose present (Nares patent, septum midline, sinuses nontender bilaterally.) Mouth: Normal oral and palatal mucosa present (No thrush, tongue in midline, mucosa moist.) Throat: Yes other (No erythema, no exudate.) Neck: Neck: Yes supple (no thyromegaly, trachea midline.) Carotids: normal carotid upstroke Resp: Effort & Inspection: able to speak in complete sentences Auscultation: rhonchi (throughout) and wheezes inspiratory wheezes and throughout Cardio: Jugular venous distension: no JVD Rate: tachycardic Rhythm: regular rhythm Heart sounds: no gallops, no murmurs and no rubs Peripheral pulses: Peripheral pulses 2+ throughout GI: Palpation (GI): Soft to palpation (nondistended.) and nontender Skin: Wounds: wounds noted (inner buttocks) Neuro: General: patient oriented x3 (answering appropriately.) Extrem: General: Yes capillary refill normal and Yes no clubbing, cyanosis or edema Psych: Affect: normal affect Attitude: cooperative Results Labs 01/07/23 15:45 01/07/23 15:44 Labs: Laboratory Results - last 24 hr 01/07/23 01/07/23 01/07/23 15:43 15:44 15:45 MCV 92.1 MCH 26.3 L MCHC 28.6 L RDW 15.9 Plt Count 376 D MPV 9.7 Immature Gran % (Auto) 0.9 H Neut % (Auto) 78.0 H Lymph % (Auto) 13.6 L [place] % (Auto) 4.9 Eos % (Auto) 2.3 Baso % (Auto) 0.3 Lymph # (Auto) 1.9 [place] # (Auto) 0.7 Eos # (Auto) 0.3 Baso # (Auto) 0.0 Abs Immat Gran (auto) 0.12 H Absolute Neuts (auto) 10.7 H Absolute Nucleated RBC 0.020 H Nucleated RBC % (auto) 0.1 PT INR O2 Saturation ABG pH at Pt Temp ABG pCO2 at Pt Temp ABG pO2 at Pt Temp ABG HCO3 ABG Base Excess (Actual) VBG pH VBG pCO2 VBG pO2 VBG HCO3 VBG O2 Saturation VBG Base Excess Anion Gap 24 H Estim Creat Clear Calc 109.9 Estimated GFR > 60 Random Glucose 195 H Lactic Acid 3.5 H* Lactic Acid F/U @ 2Hr Lactic Acid F/U @ 4Hr Calcium 9.5 Total Bilirubin 0.5 AST 13 ALT 14 Alkaline Phosphatase 95 B-Natriuretic Peptide Total Protein 7.5 Albumin 4.1 Urine Color Urine Appearance Urine pH Ur Specific [place] Urine Protein Urine Glucose (UA) Urine Ketones Urine Blood Urine Nitrite Ur Leukocyte Esterase 01/07/23 01/07/23 01/07/23 15:45 15:45 15:56 MCV MCH MCHC RDW Plt Count MPV Immature Gran % (Auto) Neut % (Auto) Lymph % (Auto) [place] % (Auto) Eos % (Auto) Baso % (Auto) Lymph # (Auto) [place] # (Auto) Eos # (Auto) Baso # (Auto) Abs Immat Gran (auto) Absolute Neuts (auto) Absolute Nucleated RBC Nucleated RBC % (auto) PT 11.6 INR 1.0 O2 Saturation ABG pH at Pt Temp ABG pCO2 at Pt Temp ABG pO2 at Pt Temp ABG HCO3 ABG Base Excess (Actual) VBG pH 7.34 VBG pCO2 102 VBG pO2 63 VBG HCO3 56 H VBG O2 Saturation 86.0 VBG Base Excess 24.7 Anion Gap Estim Creat Clear Calc Estimated GFR Random Glucose Lactic Acid Lactic Acid F/U @ 2Hr Lactic Acid F/U @ 4Hr Calcium Total Bilirubin AST ALT Alkaline Phosphatase B-Natriuretic Peptide 56 Total Protein Albumin Urine Color Urine Appearance Urine pH Ur Specific [place] Urine Protein Urine Glucose (UA) Urine Ketones Urine Blood Urine Nitrite Ur Leukocyte Esterase 01/07/23 01/07/23 01/07/23 16:15 17:07 18:16 MCV MCH MCHC RDW Plt Count MPV Immature Gran % (Auto) Neut % (Auto) Lymph % (Auto) [place] % (Auto) Eos % (Auto) Baso % (Auto) Lymph # (Auto) [place] # (Auto) Eos # (Auto) Baso # (Auto) Abs Immat Gran (auto) Absolute Neuts (auto) Absolute Nucleated RBC Nucleated RBC % (auto) PT INR O2 Saturation 86.0 ABG pH at Pt Temp 7.40 ABG pCO2 at Pt Temp 103 H* ABG pO2 at Pt Temp 63 L ABG HCO3 64 H ABG Base Excess (Actual) 32.1 VBG pH VBG pCO2 VBG pO2 VBG HCO3 VBG O2 Saturation VBG Base Excess Anion Gap Estim Creat Clear Calc Estimated GFR Random Glucose Lactic Acid Lactic Acid F/U @ 2Hr 2.5 H* Lactic Acid F/U @ 4Hr Calcium Total Bilirubin AST ALT Alkaline Phosphatase B-Natriuretic Peptide Total Protein Albumin Urine Color Yellow Urine Appearance Clear Urine pH 5.5 Ur Specific [place] 1.010 Urine Protein Negative Urine Glucose (UA) Negative Urine Ketones Negative Urine Blood Negative Urine Nitrite Negative Ur Leukocyte Esterase Negative 01/07/23 20:35 MCV MCH MCHC RDW Plt Count MPV Immature Gran % (Auto) Neut % (Auto) Lymph % (Auto) [place] % (Auto) Eos % (Auto) Baso % (Auto) Lymph # (Auto) [place] # (Auto) Eos # (Auto) Baso # (Auto) Abs Immat Gran (auto) Absolute Neuts (auto) Absolute Nucleated RBC Nucleated RBC % (auto) PT INR O2 Saturation ABG pH at Pt Temp ABG pCO2 at Pt Temp ABG pO2 at Pt Temp ABG HCO3 ABG Base Excess (Actual) VBG pH VBG pCO2 VBG pO2 VBG HCO3 VBG O2 Saturation VBG Base Excess Anion Gap Estim Creat Clear Calc Estimated GFR Random Glucose Lactic Acid Lactic Acid F/U @ 2Hr Lactic Acid F/U @ 4Hr 2.3 H* Calcium Total Bilirubin AST ALT Alkaline Phosphatase B-Natriuretic Peptide Total Protein Albumin Urine Color Urine Appearance Urine pH Ur Specific [place] Urine Protein Urine Glucose (UA) Urine Ketones Urine Blood Urine Nitrite Ur Leukocyte Esterase Imaging Radiologist's Impressions: Impressions Chest X-Ray 01/07/23 14:32 IMPRESSION: Cardiomegaly with pulmonary venous congestion and mild interstitial edema, most consistent with CHF. Assessment and Plan (1) Acute on chronic respiratory failure with hypoxemia: Status: Acute (2) Hypercapnia: Status: Acute (3) CHF exacerbation: Status: Acute (4) Diastolic CHF: Status: Acute (5) COPD (chronic obstructive pulmonary disease): Status: Acute (6) Oxygen dependent: Status: Acute (7) Obesity hypoventilation syndrome: Status: Acute (8) Obstructive sleep apnea: Status: Acute (9) Morbid obesity: Status: Acute (10) Diabetes mellitus: Qualifiers: Diabetes mellitus complication status: without complication Diabetes mellitus care home insulin use: without care home use Diabetes mellitus type: type 2 Qualified Code(s): E11.9 - Type 2 diabetes mellitus without complications Status: Acute Plan Assessment: 62-year-old Ecuadorean-speaking only female with past medical history of chronic hypercapnic hypoxemic respiratory failure related to COPD on home O2, morbid obesity, TAURUS on CPAP, diastolic CHF, and others admitted to ICU for management of acute on chronic hypercapnic respiratory failure requiring ? rescue BiPAP. Plan: Neuro:? No acute issues.? Cardiac: History of hypertension, diastolic CHF. Last echocardiogram on 10/08/2022 showed an LV ejection fraction of greater than 60%. ? BNP 56, however, CXR? and clinical? exam findings are consistent with heart failure with improvement with BiPAP use. Lasix 80 mg given in ER. ?Echocardiogram in a.m. Pulmonary: chronic hypercapnic hypoxemic respiratory failure.? COPD on home O2.? TAURUS.? Obesity hypoventilation syndrome. ?Chest CT showed hypoexpanded lungs with bibasilar consolidation/atelectasis. Mild patchy hazy airspace disease otherwise. Likely tiny bilateral pleural effusions.? Continue Zosyn.? Add? Azithromycin. ? Continue Solu-Medrol.? Reassess need for further diuresis in a.m. Renal: ? No acute issues. Bicarb 41 without ELIZABETH and otherwise are no electrolyte derangements. GI: ? No acute issues. Endo: No acute issues.? Underlying diabetes mellitus. ID: Afebrile. Lactic acid initially 3.5 trending down with BiPAP use. Elevated white count Initially thought to be ?secondary to steroid administration,? though could be due to consolidation.? Continue Zosyn, Azithromycin. Blood cultures pending.? Psych:? No acute issues. Miscellaneous:? No acute issues. Prophylaxis:? Heparin Diet:? NPO Time Spent With Patient Time: Total time managing care of this patient today ____ minutes.
[2023-01-07] MEDS: methylPREDNISolone Sod Succ 125 MG/2 ML VIAL 60 MG IVPUSH (22:38)
[2023-01-07] MEDS: Albuterol/Iprat 2.5/0.5MG 3 ML AMPUL.NEB INHALE (23:11)
[2023-01-08] VITALS (31 sets, daily range): BP systolic 120–148; BP diastolic 51–93; PULSE 79–117; RESP 9–107; TEMP 36.7–37.1; O2SAT 84–96; BMI 63.2; BMI 64.8
[2023-01-08 00:22] LABS: VBG Base Excess 31.4 mmol/L; VBG HCO3 59 mmol/L (22-26); VBG pCO2 72 mmHg; VBG pH 7.52 (7.32-7.43); VBG pO2 46 mmHg
[2023-01-08 00:39] LABS: Venous Blood Gas Refer to POC result
[2023-01-08] MEDS: Albuterol/Iprat 2.5/0.5MG 3 ML AMPUL.NEB INHALE ×5 (04:36→19:52)
[2023-01-08 04:53] LABS: VBG Base Excess 32.2 mmol/L; VBG HCO3 60 mmol/L (22-26); VBG pCO2 67 mmHg; VBG pH 7.56 (7.32-7.43); VBG pO2 72 mmHg
[2023-01-08 05:02] LABS: Venous Blood Gas Refer to POC result
[2023-01-08] MEDS: Heparin Sodium,Porcine 5,000 UNIT/ML VIAL 5000 UNIT SUBCUT ×3 (05:03→20:17)
[2023-01-08] MEDS: Piperacillin Sodium/Tazobactam 3.375 GM in 0.9 % Sodium Chloride 50 ML IV ×4 (05:03→21:46)
[2023-01-08 05:14] LABS: Hemoglobin 10.3 g/dl (12.0-16.0); Imm Gran Abs Auto 0.09 X10*3/uL (0.00-0.03); Mean Corpuscular HGB Conc 29.9 g/dl (31.0-35.0); PLT CLUMP 1; SCAN SMEAR FLAG 1
[2023-01-08 05:16] LABS: Basophils Percent Auto 0.1 % (0-2); Hematocrit 34.5 % (37.0-47.0); Lymphocytes Absolute Auto 0.4 X10*3/uL (1.2-4.9); Lymphocytes Percent Auto 4.4 % (20-40); MANUAL DIFF FLAG SCAN; Mean Corpuscular Hemoglobin 25.8 pg (27.0-33.0); Mean Corpuscular Volume 86.5 fL (80.0-98.0); Monocytes Absolute Auto 0.1 X10*3/uL (0.1-1.2); Monocytes Percent Auto 0.8 % (2-11); NRBC Pct Auto 0.3 /100WBC (0.0-0.2); Neutrophils Absolute Auto 8.7 x10*3/uL (2.0-8.3); Neutrophils Percent Auto 93.7 % (45-73); Red Blood Count 3.99 X10*6/uL (4.20-5.50); Red Cell Distribution Width 15.5 % (11.0-16.0)
[2023-01-08 05:17] LABS: Platelet Count 244 X10*3/uL (160-400); White Blood Count 9.3 X10*3/uL (4.8-10.8)
[2023-01-08 05:18] LABS: SLIDE REVIEW VERIFIED
[2023-01-08 05:24] LABS: Albumin Level 3.9 g/dL (3.5-5.0); Anion Gap 23 (12-20); Blood Urea Nitrogen 20 mg/dL (9-16); Calcium 9.4 mg/dL (8.4-10.2); Carbon Dioxide 41 mmol/L (22-29); Chloride 83 mmol/L (96-108); Creatinine Clr Calc Pharmacy 114.5; Estimated Glomerular Filt Rate > 60; Glucose Random 272 mg/dL (60-115); Magnesium 1.9 mg/dL (1.6-2.6); Phosphorus 3.1 mg/dL (2.7-4.5); Potassium 3.7 mmol/L (3.3-5.1); Sodium 143 mmol/L (135-145)
[2023-01-08] MEDS: methylPREDNISolone Sod Succ 125 MG/2 ML VIAL 60 MG IVPUSH ×3 (06:35→22:18)
--- NOTE | 2023-01-08 07:00 | CA_ITS ---
Transthoracic Echocardiogram Patient (Last, First, Middle): Ashleigh Keenan, Gender: Female Date of : 1960 Age: 62 Procedure Date: 01/08/2023 Procedure Type: Transthoracic Echocardiogram Location: ICU Height: 152.4 cm Weight: 146.51 kg BSA: 2.29 m2 Heart Rate: 89 bpm BP: 136 / 79 mmHg Product Owner: SILVIA Referring MD: Rose Jon YOU[employer] SPECIALIST Symptoms: CHF Study Quality: Adequate/Contrast/Limited Echo ECG Rhythm: Sinus Conclusions: - The left ventricular systolic function is normal. The calculated ejection fraction is 65% by biplane method. - The inferior vena cava is dilated and collapses less than 50% with inspiration. Findings Procedure Information Contrast agent, definity, is being given per protocol without apparent complications. Left Ventricle Normal left ventricular cavity size. There is moderately increased left ventricular wall thickness. The left ventricular systolic function is normal. The calculated ejection fraction is 65% by biplane method. There is no evidence of regional wall motion abnormalities. Diastolic function is indeterminate on the basis of available data. Venous The inferior vena cava is dilated and collapses less than 50% with inspiration. Prior Study Comparison No significant change compared to prior study dated: 10/08/2022. Measurements 2D Linear Measurements IVSd: 1.43 0.6-0.9/0.6-1.0 cm LVIDd: 4.76 3.9-5.3/4.2-5.9 cm LVIDd Index: 2.08 2.4-3.2/2.2-3.1 cm/m2 LVIDs: 3.05 2.0-3.6 cm LVPWd: 1.30 0.7-1.1 cm LA Diam: 4.20 2.7-3.8/3.0-4.0 cm LAIDs Index: 1.83 1.5-2.3 cm/m2 LV Mass: 324.83 67-162/88-224 g LV Mass Index: 141.85 43-95/49-115 g/m2 LVOT Diam: 2.30 3.0+(-)1.3 cm 2D Systolic Function EF 4C: 65.60 >55% EF 2C: 66.70 >55% EF BiP: 65.30 >55% Mitral Valve MV Pk E: 1.30 MV PK A: 1.33 MV Decel Time: 209.00 E/A: 1.00 E'Lateral: 7.51 E'Medial: 7.07 E/E' Med: 18.40 E/E' Lat: 17.30 PHT: 61.00 MVA PHT: 3.61 Decel [place]: 6.21 LVOT LVOT Pk Ruiz: 1.32 LVOT Mn Ruiz: 0.87 LVOT VTI: 0.26 LVOT Pk Grad: 7.00 LVOT Mn Grad: 4.00 LVOT Diam: 2.30 LVOT Area: 4.15 Diastolic Function MV Pk E: 1.30 MV Pk A: 1.33 E/A: 1.00 E'Medial: 7.07 E/E' Med: 18.40 E' Laterial: 7.51 E/E' Lat: 17.30 Tricuspid Valve RA Press: 15.00 Updated in Other Vendor System with Status of Final Remington Monge MD electronically signed on 01/08/2023 12:31:35 PM with status of Final
[2023-01-08 08:47] LABS: Glucose, Whole Blood 314 mg/dL (60-115)
--- NOTE | 2023-01-08 09:15 | PM.CCPN ---
Subjective Subjective Date of Service: 01/08/23 Interval History: 62-year-old type 2 diabetic with massive obesity and clearly obesity/ hypoventilation syndrome possible component of obstructive sleep apnea as well presents with increasing dyspnea and acute on chronic hypercarbic and hypoxic respiratory failure and spent the night tolerating and doing well on BiPAP and presented with a compensated pH is 7.4 but that is with a pCO2 of 100 and a serum bicarb the no that is over 60 so she has very severe longstanding chronic hypercarbic respiratory failure with pCO2 levels in the 90-100 range and clearly does not have a device at home and essentially lives to eat no fever no chills no chest pain no productive cough the chest imaging that she had had has a lot of movement artifact can not completely rule out the possibility of the no diffuse and interstitial edema and she has a little bit of atelectasis mostly in the left base I do not think it is a consolidation a little bit of tree in bud formation so it is not impossible that she still could be a a micro aspirate ir as well so we did bedside echo today and she has concentric left ventricular hypertrophy proximally 14 mm thickness with perfectly normal systolic function no outflow obstruction no primary valve or pericardial disease and right heart size and function also appears to be normal is no indication this is Amanda Kiet cor pulmonale but she has got a significantly dilated left atrium without mitral regurgitation and sure enough increased E to E prime ratio in indicating elevated left heart filling pressures and this is after she had been diuresed last night right now we took her off BiPAP placed her on nasal high-flow to a lower to eat and will see how she tolerates and will probably get a blood gas after a few hours on this modality to see if she would qualify to be treated on the floor Critical Care Time (minutes): 45 Physical Exam Vital Signs: Vital Signs: Last Vital Signs Temp 98.2 F 01/08/23 08:00 Pulse 79 01/08/23 09:00 Resp 17 01/08/23 09:00 BP 123/72 01/08/23 09:00 Pulse Ox 90 L 01/08/23 09:00 O2 Del Method High Flow Nasal C annula 01/08/23 09:00 O2 Flow Rate 40 01/08/23 09:00 FiO2 30 01/08/23 09:00 Oxygen Flow Rate 15 01/07/23 14:04 BMI result Body Mass Index 63.2 blood pressure 120/70 oxygen saturation 90-91% normal sinus rhythm with APCs heart rate is 100 has always been awake and or alert and oriented nonfocal neurologically in no seizure activity despite a pCO2 near its chronic state of 100 abdomen markedly obese no palpable organomegaly no tenderness chest with prolonged bilateral expiratory time no accessory muscle use there is bilateral leg edema but there is no evidence of cellulitis Objective Data Labs 01/08/23 04:48 01/08/23 04:48 Labs: Laboratory Results - last 24 hr 01/07/23 01/07/23 01/07/23 15:43 15:44 15:44 WBC RBC Hgb Hct MCV MCH MCHC RDW Plt Count MPV Immature Gran % (Auto) Neut % (Auto) Lymph % (Auto) [place] % (Auto) Eos % (Auto) Baso % (Auto) Lymph # (Auto) [place] # (Auto) Eos # (Auto) Baso # (Auto) Abs Immat Gran (auto) Absolute Neuts (auto) Absolute Nucleated RBC Nucleated RBC % (auto) Smear Tech's Comments PT INR O2 Saturation ABG pH at Pt Temp ABG pCO2 at Pt Temp ABG pO2 at Pt Temp ABG HCO3 ABG Base Excess (Actual) VBG pH VBG pCO2 VBG pO2 VBG HCO3 VBG O2 Saturation VBG Base Excess Sodium 145 Potassium 3.6 Chloride 84 L Carbon Dioxide 41 H* Anion Gap 24 H BUN 21 H Creatinine 0.74 Estim Creat Clear Calc 109.9 Estimated GFR > 60 POC Glucose Random Glucose 195 H Lactic Acid 3.5 H* Lactic Acid F/U @ 2Hr Lactic Acid F/U @ 4Hr Calcium 9.5 Phosphorus Magnesium Total Bilirubin 0.5 AST 13 ALT 14 Alkaline Phosphatase 95 Troponin I High Sens 6.9 B-Natriuretic Peptide Total Protein 7.5 Albumin 4.1 Urine Color Urine Appearance Urine pH Ur Specific [place] Urine Protein Urine Glucose (UA) Urine Ketones Urine Blood Urine Nitrite Ur Leukocyte Esterase 01/07/23 01/07/23 01/07/23 15:45 15:45 15:45 WBC 13.7 H RBC 3.91 L Hgb 10.3 L Hct 36.0 L MCV 92.1 MCH 26.3 L MCHC 28.6 L RDW 15.9 Plt Count 376 D MPV 9.7 Immature Gran % (Auto) 0.9 H Neut % (Auto) 78.0 H Lymph % (Auto) 13.6 L [place] % (Auto) 4.9 Eos % (Auto) 2.3 Baso % (Auto) 0.3 Lymph # (Auto) 1.9 [place] # (Auto) 0.7 Eos # (Auto) 0.3 Baso # (Auto) 0.0 Abs Immat Gran (auto) 0.12 H Absolute Neuts (auto) 10.7 H Absolute Nucleated RBC 0.020 H Nucleated RBC % (auto) 0.1 Smear Tech's Comments PT 11.6 INR 1.0 O2 Saturation ABG pH at Pt Temp ABG pCO2 at Pt Temp ABG pO2 at Pt Temp ABG HCO3 ABG Base Excess (Actual) VBG pH VBG pCO2 VBG pO2 VBG HCO3 VBG O2 Saturation VBG Base Excess Sodium Potassium Chloride Carbon Dioxide Anion Gap BUN Creatinine Estim Creat Clear Calc Estimated GFR POC Glucose Random Glucose Lactic Acid Lactic Acid F/U @ 2Hr Lactic Acid F/U @ 4Hr Calcium Phosphorus Magnesium Total Bilirubin AST ALT Alkaline Phosphatase Troponin I High Sens B-Natriuretic Peptide 56 Total Protein Albumin Urine Color Urine Appearance Urine pH Ur Specific [place] Urine Protein Urine Glucose (UA) Urine Ketones Urine Blood Urine Nitrite Ur Leukocyte Esterase 01/07/23 01/07/23 01/07/23 15:56 16:15 17:07 WBC RBC Hgb Hct MCV MCH MCHC RDW Plt Count MPV Immature Gran % (Auto) Neut % (Auto) Lymph % (Auto) [place] % (Auto) Eos % (Auto) Baso % (Auto) Lymph # (Auto) [place] # (Auto) Eos # (Auto) Baso # (Auto) Abs Immat Gran (auto) Absolute Neuts (auto) Absolute Nucleated RBC Nucleated RBC % (auto) Smear Tech's Comments PT INR O2 Saturation 86.0 ABG pH at Pt Temp 7.40 ABG pCO2 at Pt Temp 103 H* ABG pO2 at Pt Temp 63 L ABG HCO3 64 H ABG Base Excess (Actual) 32.1 VBG pH 7.34 VBG pCO2 102 VBG pO2 63 VBG HCO3 56 H VBG O2 Saturation 86.0 VBG Base Excess 24.7 Sodium Potassium Chloride Carbon Dioxide Anion Gap BUN Creatinine Estim Creat Clear Calc Estimated GFR POC Glucose Random Glucose Lactic Acid Lactic Acid F/U @ 2Hr Lactic Acid F/U @ 4Hr Calcium Phosphorus Magnesium Total Bilirubin AST ALT Alkaline Phosphatase Troponin I High Sens B-Natriuretic Peptide Total Protein Albumin Urine Color Yellow Urine Appearance Clear Urine pH 5.5 Ur Specific [place] 1.010 Urine Protein Negative Urine Glucose (UA) Negative Urine Ketones Negative Urine Blood Negative Urine Nitrite Negative Ur Leukocyte Esterase Negative 01/07/23 01/07/23 01/08/23 18:16 20:35 00:12 WBC RBC Hgb Hct MCV MCH MCHC RDW Plt Count MPV Immature Gran % (Auto) Neut % (Auto) Lymph % (Auto) [place] % (Auto) Eos % (Auto) Baso % (Auto) Lymph # (Auto) [place] # (Auto) Eos # (Auto) Baso # (Auto) Abs Immat Gran (auto) Absolute Neuts (auto) Absolute Nucleated RBC Nucleated RBC % (auto) Smear Tech's Comments PT INR O2 Saturation ABG pH at Pt Temp ABG pCO2 at Pt Temp ABG pO2 at Pt Temp ABG HCO3 ABG Base Excess (Actual) VBG pH 7.52 H VBG pCO2 72 VBG pO2 46 VBG HCO3 59 H VBG O2 Saturation 77.0 VBG Base Excess 31.4 Sodium Potassium Chloride Carbon Dioxide Anion Gap BUN Creatinine Estim Creat Clear Calc Estimated GFR POC Glucose Random Glucose Lactic Acid Lactic Acid F/U @ 2Hr 2.5 H* Lactic Acid F/U @ 4Hr 2.3 H* Calcium Phosphorus Magnesium Total Bilirubin AST ALT Alkaline Phosphatase Troponin I High Sens B-Natriuretic Peptide Total Protein Albumin Urine Color Urine Appearance Urine pH Ur Specific [place] Urine Protein Urine Glucose (UA) Urine Ketones Urine Blood Urine Nitrite Ur Leukocyte Esterase 01/08/23 01/08/23 01/08/23 04:43 04:48 04:48 WBC 9.3 RBC 3.99 L Hgb 10.3 L Hct 34.5 L MCV 86.5 D MCH 25.8 L MCHC 29.9 L RDW 15.5 Plt Count 244 D MPV 10.0 Immature Gran % (Auto) 1.0 H Neut % (Auto) 93.7 H Lymph % (Auto) 4.4 L [place] % (Auto) 0.8 L Eos % (Auto) 0.0 Baso % (Auto) 0.1 Lymph # (Auto) 0.4 L [place] # (Auto) 0.1 Eos # (Auto) 0.0 Baso # (Auto) 0.0 Abs Immat Gran (auto) 0.09 H Absolute Neuts (auto) 8.7 H Absolute Nucleated RBC 0.030 H Nucleated RBC % (auto) 0.3 H Smear Tech's Comments VERIFIED PT INR O2 Saturation ABG pH at Pt Temp ABG pCO2 at Pt Temp ABG pO2 at Pt Temp ABG HCO3 ABG Base Excess (Actual) VBG pH 7.56 H VBG pCO2 67 VBG pO2 72 VBG HCO3 60 H VBG O2 Saturation 95.0 VBG Base Excess 32.2 Sodium 143 Potassium 3.7 Chloride 83 L Carbon Dioxide 41 H* Anion Gap 23 H BUN 20 H Creatinine 0.70 Estim Creat Clear Calc 114.5 Estimated GFR > 60 POC Glucose Random Glucose 272 H Lactic Acid Lactic Acid F/U @ 2Hr Lactic Acid F/U @ 4Hr Calcium 9.4 Phosphorus 3.1 Magnesium 1.9 Total Bilirubin AST ALT Alkaline Phosphatase Troponin I High Sens B-Natriuretic Peptide Total Protein Albumin 3.9 Urine Color Urine Appearance Urine pH Ur Specific [place] Urine Protein Urine Glucose (UA) Urine Ketones Urine Blood Urine Nitrite Ur Leukocyte Esterase 01/08/23 08:44 WBC RBC Hgb Hct MCV MCH MCHC RDW Plt Count MPV Immature Gran % (Auto) Neut % (Auto) Lymph % (Auto) [place] % (Auto) Eos % (Auto) Baso % (Auto) Lymph # (Auto) [place] # (Auto) Eos # (Auto) Baso # (Auto) Abs Immat Gran (auto) Absolute Neuts (auto) Absolute Nucleated RBC Nucleated RBC % (auto) Smear Tech's Comments PT INR O2 Saturation ABG pH at Pt Temp ABG pCO2 at Pt Temp ABG pO2 at Pt Temp ABG HCO3 ABG Base Excess (Actual) VBG pH VBG pCO2 VBG pO2 VBG HCO3 VBG O2 Saturation VBG Base Excess Sodium Potassium Chloride Carbon Dioxide Anion Gap BUN Creatinine Estim Creat Clear Calc Estimated GFR POC Glucose 314 H Random Glucose Lactic Acid Lactic Acid F/U @ 2Hr Lactic Acid F/U @ 4Hr Calcium Phosphorus Magnesium Total Bilirubin AST ALT Alkaline Phosphatase Troponin I High Sens B-Natriuretic Peptide Total Protein Albumin Urine Color Urine Appearance Urine pH Ur Specific [place] Urine Protein Urine Glucose (UA) Urine Ketones Urine Blood Urine Nitrite Ur Leukocyte Esterase Progress Note: A&P Assessment and plan (1) Acute on chronic respiratory failure with hypoxemia: Status: Acute (2) Hypercapnia: Status: Acute (3) COPD exacerbation: Status: Acute (4) CHF exacerbation: Status: Acute (5) Wheezing: Status: Acute (6) Bilateral lower extremity edema: Status: Acute (7) Oxygen dependent: Status: Acute (8) Obesity hypoventilation syndrome: Status: Acute (9) Obstructive sleep apnea: Status: Acute (10) Morbid obesity: Status: Acute (11) Essential hypertension: Status: Acute (12) Diastolic CHF: Status: Acute (13) Diabetes mellitus: Status: Acute (14) Cocaine use disorder, mild, in sustained remission: Status: Acute Plan so overall impression with this exacerbation is that diastolic CHF may have played a significant role and she seems to have turned around since the IV diuretic was was given last night and she was incontinent of a fair volume of urine the E to E prime ratio that indicates that she has got elevated left heart filling pressures and this is post diuresis of place her on maintenance dose of a diuretic at this point and keep her on the nasal high-flow and check a blood gas to see if she qualifies to be in the intermediate care at least nocturnal BiPAP and then qualification for a home device but she definitely needs referral to a bariatric surgeon maybe she should be started on 1 of the weight loss medications like a GLP agonist Quality Stroke Does the patient have a stroke diagnosis?: No VTE Prior VTE?: No VTE Risk Level:: Medical - moderate - high VTE Device Contraindication: N/A - Device Ordered VTE Drug Contraindication: N/A - Med Ordered
[2023-01-08] MEDS: Furosemide 40 MG TABLET PO (10:49)
[2023-01-08] MEDS: Spironolactone 25 MG TABLET PO (10:49)
[2023-01-08 11:27] LABS: VBG Base Excess 27.6 mmol/L; VBG HCO3 55 mmol/L (22-26); VBG pCO2 71 mmHg; VBG pO2 72 mmHg
[2023-01-08 11:29] LABS: Glucose, Whole Blood 408 mg/dL (60-115)
[2023-01-08] MEDS: Insulin Lispro 100 UNIT/ML 3 ML VIAL SUBCUT ×3 (11:45→20:17)
--- NOTE | 2023-01-08 12:56 | MHC.CM.PN ---
Met with pt using a software engineer backend to review d/c planning needs: pt resides w/spouse who is also one of her 3 [employer] care attendants. Spouse transports pt to all appointments and will bring pt home when she is medically stable. Pt has a working CPAP serviced by [facility] in addition to home O2. Pt declines additional services - states she has an appointment w/her PCP on 01/10. Unsure if pt will be d/c'd by this date. HCP on file and verified: IMM in chart. CM to follow for changes in d/c planning needs.
[2023-01-08 14:48] LABS: ~Lactic Acid-LAB USE ONLY 2.3 mmol/L (0.5-2.0)
[2023-01-08 16:10] LABS: Glucose, Whole Blood 316 mg/dL (60-115)
[2023-01-08 18:42] LABS: Venous Blood Gas Refer to POC result
[2023-01-08 20:14] LABS: Glucose, Whole Blood 345 mg/dL (60-115)
[2023-01-08] MEDS: Azithromycin 500 MG in 0.9 % Sodium Chloride 250 ML 125 MG IV (22:18)
[2023-01-09] VITALS (34 sets, daily range): BP systolic 129–162; BP diastolic 67–94; PULSE 94–110; RESP 11–23; TEMP 36.1–37; O2SAT 88–98; BMI 62.9
[2023-01-09] MEDS: Albuterol/Iprat 2.5/0.5MG 3 ML AMPUL.NEB INHALE ×7 (00:28→23:19)
[2023-01-09] MEDS: Piperacillin Sodium/Tazobactam 3.375 GM in 0.9 % Sodium Chloride 50 ML IV ×4 (04:22→22:47)
[2023-01-09] MEDS: Heparin Sodium,Porcine 5,000 UNIT/ML VIAL 5000 UNIT SUBCUT ×3 (04:22→21:01)
[2023-01-09 04:52] LABS: VBG Base Excess 30.2 mmol/L; VBG HCO3 57 mmol/L (22-26); VBG pCO2 62 mmHg; VBG pH 7.57 (7.32-7.43); VBG pO2 62 mmHg
[2023-01-09 05:06] LABS: Venous Blood Gas Refer to POC result
[2023-01-09 05:17] LABS: Basophils Percent Auto 0.1 % (0-2); Hematocrit 36.6 % (37.0-47.0); Hemoglobin 10.6 g/dl (12.0-16.0); Imm Gran Abs Auto 0.05 X10*3/uL (0.00-0.03); Imm Gran Pct Auto 0.6 % (0.0-0.4); Lymphocytes Absolute Auto 0.5 X10*3/uL (1.2-4.9); Lymphocytes Percent Auto 5.6 % (20-40); Mean Corpuscular Volume 89.7 fL (80.0-98.0); Mean Platelet Volume 9.9 fL (9.4-12.3); Monocytes Absolute Auto 0.3 X10*3/uL (0.1-1.2); Monocytes Percent Auto 2.8 % (2-11); Neutrophils Absolute Auto 8.1 x10*3/uL (2.0-8.3); Neutrophils Percent Auto 90.9 % (45-73); Platelet Count 374 X10*3/uL (160-400); Red Blood Count 4.08 X10*6/uL (4.20-5.50); Red Cell Distribution Width 15.5 % (11.0-16.0); SCAN SMEAR FLAG 1; White Blood Count 8.9 X10*3/uL (4.8-10.8)
[2023-01-09 05:33] LABS: Albumin Level 3.8 g/dL (3.5-5.0); Anion Gap 20 (12-20); Blood Urea Nitrogen 25 mg/dL (9-16); Calcium 9.7 mg/dL (8.4-10.2); Carbon Dioxide 42 mmol/L (22-29); Chloride 85 mmol/L (96-108); Creatinine Clr Calc Pharmacy 109.6; Estimated Glomerular Filt Rate > 60; Glucose Random 373 mg/dL (60-115); Phosphorus 2.9 mg/dL (2.7-4.5); Potassium 3.6 mmol/L (3.3-5.1); Sodium 143 mmol/L (135-145)
[2023-01-09 05:39] LABS: MANUAL DIFF FLAG SCAN; SLIDE REVIEW VERIFIED
--- NOTE | 2023-01-09 06:44 | PM.CCPN ---
Subjective Subjective Date of Service: 01/09/23 Interval History: 62-year-old massively obese individual who does have a BiPAP machine at home yet chronically lives with pCO2 between 90 and 100 with with normal mentation but came in with increasing dyspnea and with her background of renal chronic obesity/ hypoventilation and obstructive sleep apnea she also has evidence of significant diastolic dysfunction was edematous and it was felt that the mechanism for her hypoxic exacerbate chin was was based on fluid overload manifested also by interstitial edema and just with consistent use of of BiPAP and IV dye diuretic she diuresed nicely and as she did so work of breathing of course improved markedly and currently is mildly alkalotic but her pCO2 was down between 60 and 70 which is of course much lower than what she has become chronically custom to and the 1 thing that she that she truly needs which is which is weight loss is never going to happen because she clearly has no interest she is nearing the point where she can go upstairs to an intermediate care level as she 5 for all intents and purposes is pretty much at her chronic baseline will always be BiPAP requiring she is witnessed here to have significant apneic periods during which time her oxygen saturations dropped down as low as 70% and this always occurring when she is taking a nap during the day and certainly sleeping at night and therefore needs a mechanism where she has a certain back up respiratory rate Critical Care Time (minutes): 35 Physical Exam Vital Signs: Vital Signs: Last Vital Signs Temp 98.6 F 01/09/23 03:00 Pulse 98 01/09/23 06:00 Resp 11 L 01/09/23 06:00 BP 144/88 H 01/09/23 06:00 Pulse Ox 96 01/09/23 06:00 O2 Del Method BiPAP 01/09/23 06:00 O2 Flow Rate 40 01/08/23 20:00 FiO2 35 01/09/23 06:00 Oxygen Flow Rate 15 01/07/23 14:04 BMI result Body Mass Index 62.9 pressure is 139/86 oxygen saturation 96% currently sinus rhythm rate of 90 no accessory muscle or diaphragmatic effort abdomen obese but no organomegaly chest with diminished breath sounds but no adventitious sounds bedside echo with mild concentric left ventricular hypertrophy and preserved ejection fraction Objective Data Labs 01/09/23 04:44 01/09/23 04:44 Labs: Laboratory Results - last 24 hr 01/07/23 01/08/2301/08/23 20:35 08:44 11:17 WBC RBC Hgb Hct MCV MCH MCHC RDW Plt Count MPV Immature Gran % (Auto) Neut % (Auto) Lymph % (Auto) [place] % (Auto) Eos % (Auto) Baso % (Auto) Lymph # (Auto) [place] # (Auto) Eos # (Auto) Baso # (Auto) Abs Immat Gran (auto) Absolute Neuts (auto) Absolute Nucleated RBC Nucleated RBC % (auto) Smear Tech's Comments VBG pH 7.50 H VBG pCO2 71 VBG pO2 72 VBG HCO3 55 H VBG O2 Saturation 96.0 VBG Base Excess 27.6 Sodium Potassium Chloride Carbon Dioxide Anion Gap BUN Creatinine Estim Creat Clear Calc Estimated GFR POC Glucose 314 H Random Glucose Lactic Acid F/U @ 4Hr 2.3 H* Calcium Phosphorus Magnesium Albumin 01/08/23 01/08/23 01/08/23 11:26 16:03 20:11 WBC RBC Hgb Hct MCV MCH MCHC RDW Plt Count MPV Immature Gran % (Auto) Neut % (Auto) Lymph % (Auto) [place] % (Auto) Eos % (Auto) Baso % (Auto) Lymph # (Auto) [place] # (Auto) Eos # (Auto) Baso # (Auto) Abs Immat Gran (auto) Absolute Neuts (auto) Absolute Nucleated RBC Nucleated RBC % (auto) Smear Tech's Comments VBG pH VBG pCO2 VBG pO2 VBG HCO3 VBG O2 Saturation VBG Base Excess Sodium Potassium Chloride Carbon Dioxide Anion Gap BUN Creatinine Estim Creat Clear Calc Estimated GFR POC Glucose 408 H* 316 H 345 H Random Glucose Lactic Acid F/U @ 4Hr Calcium Phosphorus Magnesium Albumin 01/09/23 01/09/23 01/09/23 04:42 04:44 04:44 WBC 8.9 RBC 4.08 L Hgb 10.6 L Hct 36.6 L MCV 89.7 MCH 26.0 L MCHC 29.0 L RDW 15.5 Plt Count 374 D MPV 9.9 Immature Gran % (Auto) 0.6 H Neut % (Auto) 90.9 H Lymph % (Auto) 5.6 L [place] % (Auto) 2.8 Eos % (Auto) 0.0 Baso % (Auto) 0.1 Lymph # (Auto) 0.5 L [place] # (Auto) 0.3 Eos # (Auto) 0.0 Baso # (Auto) 0.0 Abs Immat Gran (auto) 0.05 H Absolute Neuts (auto) 8.1 Absolute Nucleated RBC 0.000 Nucleated RBC % (auto) 0.0 Smear Tech's Comments VERIFIED VBG pH 7.57 H VBG pCO2 62 VBG pO2 62 VBG HCO3 57 H VBG O2 Saturation 91.0 VBG Base Excess 30.2 Sodium 143 Potassium 3.6 Chloride 85 L Carbon Dioxide 42 H* Anion Gap 20 BUN 25 H Creatinine 0.73 Estim Creat Clear Calc 109.6 Estimated GFR > 60 POC Glucose Random Glucose 373 H* Lactic Acid F/U @ 4Hr Calcium 9.7 Phosphorus 2.9 Magnesium 2.0 Albumin 3.8 Microbiology Microbiology Results: Microbiology 01/07/23 15:44 Blood - Venous Blood Culture - Preliminary No growth after 24 hours. 01/07/23 15:46 Blood - Venous Blood Culture - Preliminary No growth after 24 hours. Progress Note: A&P Assessment and plan (1) Acute on chronic respiratory failure with hypoxemia: Status: Acute (2) Hypercapnia: Status: Acute (3) COPD exacerbation: Status: Acute (4) CHF exacerbation: Status: Acute (5) COPD (chronic obstructive pulmonary disease): Status: Acute (6) Wheezing: Status: Acute (7) Bilateral lower extremity edema: Status: Acute (8) Adult general medical exam: Status: Acute (9) Cellulitis: Status: Acute (10) Screening for breast cancer: Status: Acute (11) Screening for colon cancer: Status: Acute (12) Cervical cancer screening: Status: Acute (13) Oxygen dependent: Status: Acute (14) Obesity hypoventilation syndrome: Status: Acute (15) Obstructive sleep apnea: Status: Acute (16) Morbid obesity: Status: Acute (17) Mixed incontinence urge and stress: Status: Acute (18) Essential hypertension: Status: Acute (19) Diastolic CHF: Status: Acute (20) Diabetes mellitus: Status: Acute (21) Cocaine use disorder, mild, in sustained remission: Status: Acute (22) Cerebrovascular accident involving posterior circulation: Status: Acute (23) Foot pain: Status: Acute Plan the plan at this point is to consider transfer to an intermediate care and her reality is that she will need to remain on the BiPAP certainly is a nocturnal mechanism but also daytime during naps she is largely bed ridden and her only interest really is in eating he would like to inferior E start mobilizing her with with physical therapy but I do not anticipate will get a lot of cooperation Quality Stroke Does the patient have a stroke diagnosis?: No VTE Prior VTE?: No VTE Risk Level:: Medical - moderate - high VTE Device Contraindication: N/A - Device Ordered VTE Drug Contraindication: N/A - Med Ordered
[2023-01-09 07:26] LABS: Glucose, Whole Blood 303 mg/dL (60-115)
[2023-01-09] MEDS: Spironolactone 25 MG TABLET PO (07:57)
[2023-01-09] MEDS: methylPREDNISolone Sod Succ 125 MG/2 ML VIAL 60 MG IVPUSH ×3 (07:57→23:43)
[2023-01-09] MEDS: Furosemide 40 MG TABLET PO (07:57)
[2023-01-09] MEDS: Insulin Lispro 100 UNIT/ML 3 ML VIAL SUBCUT ×3 (07:58→16:57)
--- NOTE | 2023-01-09 08:56 | MHC.CLN ---
F/U PT WITH INCREASED NUTRITION RISK R/T PRESSURE INJURY DIET RX: 1800DM 2GM NA -APPROPRIATE PT RECEIVING ENSURE MAX BID TO INCREASE PO PROTEIN TO PROMOTE WOUND HEALING SUPP PROVIDES 300KCALS, 60G PROTEIN WITH 100% ACCEPTANCE MONITOR PO INTAKE CLOSELY
[2023-01-09] MEDS: acetaZOLAMIDE 250 MG TABLET PO (09:16)
[2023-01-09 11:37] LABS: Glucose, Whole Blood 417 mg/dL (60-115)
--- NOTE | 2023-01-09 15:57 | MHC.CM.PN ---
EMR REVIEWED AND PT IS MAKING GAINS, WILL TRANSFER TO TELEMETRY UNIT SOON. PT REMAINS ON NOCTURNAL BIPAP (BASELINE) AND FOR NAPS. CM WILL CONTINUE TO FOLLOW FOR DC NEEDS/PLAN.
[2023-01-09 16:20] LABS: Glucose, Whole Blood 403 mg/dL (60-115)
[2023-01-09] MEDS: Insulin Glargine,Hum.rec.anlog 100 UNIT/ML 10 ML VIAL 20 UNIT SUBCUT ×2 (16:56→21:02)
[2023-01-09 20:56] LABS: Glucose, Whole Blood 429 mg/dL (60-115)
[2023-01-09] MEDS: Insulin Lispro 100 UNIT/ML 3 ML VIAL 12 UNIT SUBCUT (21:02)
[2023-01-09] MEDS: Azithromycin 500 MG in 0.9 % Sodium Chloride 250 ML 125 MG IV (23:42)
[2023-01-10] VITALS (24 sets, daily range): BP systolic 120–160; BP diastolic 49–100; PULSE 71–122; RESP 9–27; TEMP 36.4–37; O2SAT 90–97; BMI 62.0; BMI 63.2
[2023-01-10] MEDS: Albuterol/Iprat 2.5/0.5MG 3 ML AMPUL.NEB INHALE ×4 (04:40→19:38)
[2023-01-10 04:49] LABS: VBG HCO3 50 mmol/L (22-26); VBG pCO2 56 mmHg; VBG pH 7.55 (7.32-7.43); VBG pO2 60 mmHg
[2023-01-10 05:00] LABS: Basophils Percent Auto 0.1 % (0-2); Hematocrit 37.9 % (37.0-47.0); Hemoglobin 11.4 g/dl (12.0-16.0); Imm Gran Abs Auto 0.05 X10*3/uL (0.00-0.03); Imm Gran Pct Auto 0.6 % (0.0-0.4); Lymphocytes Absolute Auto 0.4 X10*3/uL (1.2-4.9); Lymphocytes Percent Auto 5.3 % (20-40); MANUAL DIFF FLAG SCAN; Mean Corpuscular HGB Conc 30.1 g/dl (31.0-35.0); Mean Corpuscular Hemoglobin 25.9 pg (27.0-33.0); Mean Corpuscular Volume 86.1 fL (80.0-98.0); Mean Platelet Volume 9.6 fL (9.4-12.3); Monocytes Absolute Auto 0.3 X10*3/uL (0.1-1.2); Monocytes Percent Auto 3.2 % (2-11); Neutrophils Absolute Auto 7.3 x10*3/uL (2.0-8.3); Neutrophils Percent Auto 90.8 % (45-73); Platelet Count 416 X10*3/uL (160-400); Red Cell Distribution Width 15.2 % (11.0-16.0); SCAN SMEAR FLAG 1; White Blood Count 8.1 X10*3/uL (4.8-10.8)
[2023-01-10 05:13] LABS: Albumin Level 3.8 g/dL (3.5-5.0); Anion Gap 18 (12-20); Blood Urea Nitrogen 29 mg/dL (9-16); Calcium 9.6 mg/dL (8.4-10.2); Carbon Dioxide 32 mmol/L (22-29); Chloride 93 mmol/L (96-108); Creatinine Clr Calc Pharmacy 103.9; Estimated Glomerular Filt Rate > 60; Glucose Random 376 mg/dL (60-115); Magnesium 2.1 mg/dL (1.6-2.6); Phosphorus 3.1 mg/dL (2.7-4.5); Potassium 3.7 mmol/L (3.3-5.1); Sodium 139 mmol/L (135-145)
[2023-01-10] MEDS: Piperacillin Sodium/Tazobactam 3.375 GM in 0.9 % Sodium Chloride 50 ML IV ×2 (05:27→10:39)
[2023-01-10] MEDS: Heparin Sodium,Porcine 5,000 UNIT/ML VIAL 5000 UNIT SUBCUT ×3 (05:27→22:29)
[2023-01-10 05:33] LABS: Venous Blood Gas Refer to POC result
[2023-01-10 06:38] LABS: SLIDE REVIEW VERIFIED
[2023-01-10 07:38] LABS: Glucose, Whole Blood 338 mg/dL (60-115)
[2023-01-10] MEDS: Insulin Lispro 100 UNIT/ML 3 ML VIAL SUBCUT ×5 (08:38→22:28)
[2023-01-10] MEDS: Insulin Glargine,Hum.rec.anlog 100 UNIT/ML 10 ML VIAL 25 UNIT SUBCUT ×2 (08:39→22:28)
[2023-01-10] MEDS: Furosemide 40 MG TABLET PO (08:39)
[2023-01-10] MEDS: predniSONE 20 MG TABLET 40 MG PO (08:40)
[2023-01-10] MEDS: Spironolactone 25 MG TABLET PO (08:40)
[2023-01-10] MEDS: acetaZOLAMIDE 250 MG TABLET PO (08:40)
[2023-01-10 11:46] LABS: Glucose, Whole Blood 429 mg/dL (60-115)
--- NOTE | 2023-01-10 13:12 | PM.CCPN ---
Subjective Subjective Date of Service: 01/10/23 Interval History: 62-year-old morbidly obese type 2 diabetic female longstanding obesity/hypoventilation and obstructive sleep apnea presented with acute on chronic hypercapnia and hypoxic respiratory failure and what we discovered is that she definitely has severe diastolic left ventricular dysfunction with elevated left heart filling pressures she clearly was edematous and I think she clinically responded extremely well to diuresis that there was no infectious etiology here and today therefore I am stopping the Zithromax as well as the ceftriaxone 7 not ceftriaxone but Zosyn and and on going to stop the a seated Pramod might at this point and just maintain Lasix and spironolactone on a daily basis orally She is eating and she has got no respiratory effort whatsoever and she is doing beautifully maintaining oxygen saturations on just nasal cannula but still when when sleeping whether it is a daytime nap or nocturnally and there are apneic periods that a substantial which she will desaturate and therefore I think keeping her on the CPAP with a backup rate would be you know her maintenance treatment Critical Care Time (minutes): 35 Physical Exam Vital Signs: Vital Signs: Last Vital Signs Temp 98.0 F 01/10/23 12:00 Pulse 112 H 01/10/23 12:00 Resp 21 H 01/10/23 12:00 BP 125/78 01/10/23 12:00 Pulse Ox 97 01/10/23 12:00 O2 Del Method High Flow Nasal C annula 01/10/23 12:00 O2 Flow Rate 30 01/10/23 12:00 FiO2 35 01/10/23 12:00 Oxygen Flow Rate 15 01/07/23 14:04 BMI result Body Mass Index 63.2 No respiratory distress noted no tachypnea awake and alert and nonfocal neurologically Bedside echo with preserved LV systolic function but severe diastolic dysfunction Peripherally skin markedly diminished 3rd space fluid Abdomen obese but benign with no organomegaly Chest with diminished bilateral breath sounds but normal expiratory time no adventitious sounds Objective Data Labs 01/10/23 04:33 01/10/23 04:33 Labs: Laboratory Results - last 24 hr 01/09/23 01/09/23 01/10/23 16:15 20:48 04:33 WBC 8.1 RBC 4.40 Hgb 11.4 L Hct 37.9 MCV 86.1 MCH 25.9 L MCHC 30.1 L RDW 15.2 Plt Count 416 H MPV 9.6 Immature Gran % (Auto) 0.6 H Neut % (Auto) 90.8 H Lymph % (Auto) 5.3 L [place] % (Auto) 3.2 Eos % (Auto) 0.0 Baso % (Auto) 0.1 Lymph # (Auto) 0.4 L [place] # (Auto) 0.3 Eos # (Auto) 0.0 Baso # (Auto) 0.0 Abs Immat Gran (auto) 0.05 H Absolute Neuts (auto) 7.3 Absolute Nucleated RBC 0.000 Nucleated RBC % (auto) 0.0 Smear Tech's Comments VERIFIED VBG pH VBG pCO2 VBG pO2 VBG HCO3 VBG O2 Saturation VBG Base Excess Sodium Potassium Chloride Carbon Dioxide Anion Gap BUN Creatinine Estim Creat Clear Calc Estimated GFR POC Glucose 403 H* 429 H* Random Glucose Calcium Phosphorus Magnesium Albumin 01/10/23 01/10/23 01/10/23 04:33 04:38 07:35 WBC RBC Hgb Hct MCV MCH MCHC RDW Plt Count MPV Immature Gran % (Auto) Neut % (Auto) Lymph % (Auto) [place] % (Auto) Eos % (Auto) Baso % (Auto) Lymph # (Auto) [place] # (Auto) Eos # (Auto) Baso # (Auto) Abs Immat Gran (auto) Absolute Neuts (auto) Absolute Nucleated RBC Nucleated RBC % (auto) Smear Tech's Comments VBG pH 7.55 H VBG pCO2 56 VBG pO2 60 VBG HCO3 50 H VBG O2 Saturation 89.0 VBG Base Excess 24.0 Sodium 139 Potassium 3.7 Chloride 93 L Carbon Dioxide 32 H Anion Gap 18 BUN 29 H Creatinine 0.77 Estim Creat Clear Calc 103.9 Estimated GFR > 60 POC Glucose 338 H Random Glucose 376 H* Calcium 9.6 Phosphorus 3.1 Magnesium 2.1 Albumin 3.8 01/10/23 11:42 WBC RBC Hgb Hct MCV MCH MCHC RDW Plt Count MPV Immature Gran % (Auto) Neut % (Auto) Lymph % (Auto) [place] % (Auto) Eos % (Auto) Baso % (Auto) Lymph # (Auto) [place] # (Auto) Eos # (Auto) Baso # (Auto) Abs Immat Gran (auto) Absolute Neuts (auto) Absolute Nucleated RBC Nucleated RBC % (auto) Smear Tech's Comments VBG pH VBG pCO2 VBG pO2 VBG HCO3 VBG O2 Saturation VBG Base Excess Sodium Potassium Chloride Carbon Dioxide Anion Gap BUN Creatinine Estim Creat Clear Calc Estimated GFR POC Glucose 429 H* Random Glucose Calcium Phosphorus Magnesium Albumin Microbiology Microbiology Results: Microbiology 01/07/23 15:44 Blood - Venous Blood Culture - Preliminary No growth after 48 hours. 01/07/23 15:46 Blood - Venous Blood Culture - Preliminary No growth after 48 hours. Progress Note: A&P Assessment and plan (1) Acute on chronic respiratory failure with hypoxemia: Status: Acute (2) Hypercapnia: Status: Acute (3) COPD exacerbation: Status: Acute (4) CHF exacerbation: Status: Acute (5) COPD (chronic obstructive pulmonary disease): Status: Acute (6) Wheezing: Status: Acute (7) Bilateral lower extremity edema: Status: Acute (8) Adult general medical exam: Status: Acute (9) Cellulitis: Status: Acute (10) Screening for breast cancer: Status: Acute (11) Screening for colon cancer: Status: Acute (12) Cervical cancer screening: Status: Acute (13) Oxygen dependent: Status: Acute (14) Obesity hypoventilation syndrome: Status: Acute (15) Obstructive sleep apnea: Status: Acute (16) Morbid obesity: Status: Acute (17) Mixed incontinence urge and stress: Status: Acute (18) Diastolic CHF: Status: Acute (19) Diabetes mellitus: Status: Acute (20) Cocaine use disorder, mild, in sustained remission: Status: Acute (21) Essential hypertension: Status: Acute (22) Cerebrovascular accident involving posterior circulation: Status: Acute (23) Foot pain: Status: Acute Plan So plan is to stop the antibiotics and the SCDs Pramod might keep her on maintenance Lasix and spironolactone and then have her evaluated for a either CPAP or BiPAP device the no she clearly was bronchospastic when she was here and I think there was benefit derived from the X expiratory pressure but at this point a backup heart rate and a sufficient CPAP pressure to overcome the upper airway resistance and that should suffice but it would be nice down the line if she could be convinced about weight loss if she would be willing to comply and maybe get into a bariatric program Quality Stroke Does the patient have a stroke diagnosis?: No VTE Prior VTE?: No VTE Risk Level:: Medical - moderate - high VTE Device Contraindication: N/A - Device Ordered VTE Drug Contraindication: N/A - Med Ordered
[2023-01-10 16:16] LABS: Glucose, Whole Blood 446 mg/dL (60-115)
--- NOTE | 2023-01-10 16:35 | PM.EVENT ---
Event Note Date of Service: 01/10/23 Event Note: This is a 62-year-old morbidly obese type 2 diabetic female longstanding obesity/hypoventilation, COPD on 2L supplemental oxygen at baseline, and obstructive sleep apnea presented with acute on chronic hypercapnia and hypoxic respiratory failure?secondary to COPD exacerbation and CHF s/p diuresis with lasix, aldactone and treatment with bipap, high flow now on 3L NC. downgraded to the medical floor 01/10. Time Spent With Patient Time: Total time managing care of this patient today ____ minutes.
--- NOTE | 2023-01-10 19:55 | PC.NURSE ---
Assumed care at 15:00, transferred patient up from ICU. Patient alert, oriented x4, Algerian speaking mostly and communicated with in Algerian. Patient follows commands, responds appropriately, two person assist to reposition, but also participates well in bed mobility. Patient initially on 3 LPM nasal cannula, and reports that is her home oxygen level. Patient did have to be uptitrated for oxygen around 19:00, as she had fallen asleep and continuous oxygen monitor showed a drop to 84%. Patient was awakened and agreed to put Bipap on for sleep and RT was notified. Patient denied pain, no respiratory distress or chest pain. Patient had POC of 446, critically high, and PA was notified, and given 5 extra units of SL Lispro in addition to 10 U per sliding scale, discussed possible need for more long acting insulin, but that dose has already been increased earlier today.
[2023-01-10 20:25] LABS: Glucose, Whole Blood 358 mg/dL (60-115)
[2023-01-11] VITALS (14 sets, daily range): BP systolic 102–140; BP diastolic 55–89; PULSE 56–101; RESP 16–20; TEMP 35.9–36.7; O2SAT 91–98; BMI 62.5
--- NOTE | 2023-01-11 | ECG_ITS ---
Test Reason : Chest Pain Blood Pressure : / mmHG Vent. Rate : 100 BPM Atrial Rate : 100 BPM P-R Int : 110 ms QRS Dur : 080 ms QT Int : 348 ms P-R-T Axes : 056 018 038 degrees QTc Int : 448 ms Sinus rhythm with short TX with Premature atrial complexes Otherwise normal ECG When compared with ECG of 07-JAN-2023 14:18, Nonspecific T wave abnormality no longer evident in Lateral leads Referred By: Joselyn Malone Electronically Signed By:Pawel Tsang
[2023-01-11] MEDS: Albuterol/Iprat 2.5/0.5MG 3 ML AMPUL.NEB INHALE ×5 (01:18→19:03)
[2023-01-11] MEDS: Heparin Sodium,Porcine 5,000 UNIT/ML VIAL 5000 UNIT SUBCUT ×3 (05:14→21:15)
[2023-01-11 07:30] LABS: Glucose, Whole Blood 146 mg/dL (60-115)
[2023-01-11] MEDS: Spironolactone 25 MG TABLET PO (07:53)
[2023-01-11] MEDS: Furosemide 40 MG TABLET PO (07:53)
[2023-01-11] MEDS: predniSONE 20 MG TABLET 40 MG PO (07:53)
[2023-01-11 11:06] LABS: Glucose, Whole Blood 292 mg/dL (60-115)
[2023-01-11] MEDS: Insulin Lispro 100 UNIT/ML 3 ML VIAL SUBCUT ×3 (11:21→21:15)
--- NOTE | 2023-01-11 12:27 | MHC.CLN ---
F/U PT WITH INCREASED NUTRITION RISK R/T PRESSURE INJURY PO INTAKE 100% DIET RX: 1800DM 2GM NA -APPROPRIATE PT RECEIVING ENSURE MAX BID TO INCREASE PO PROTEIN TO PROMOTE WOUND HEALING SUPP PROVIDES 300KCALS, 60G PROTEIN WITH 100% ACCEPTANCE MONITOR PO INTAKE CLOSELY
--- NOTE | 2023-01-11 13:24 | PM.DS ---
DS: Providers Provider Date of Service: 01/11/23 Date of admission: 01/07/23 20:18 Date of discharge: 01/11/23 Primary care physician: Dolores Dubois MD Attending physician on discharge: Seun Lynne Discharging clinician: Jacquie Cota DS: Diagnosis Discharge Diagnosis (1) Acute on chronic respiratory failure with hypoxemia: Status: Acute (2) Hypercapnia: Status: Acute (3) COPD exacerbation: Status: Acute (4) CHF exacerbation: Status: Acute (5) COPD (chronic obstructive pulmonary disease): Status: Inactive (6) Screening for colon cancer: Status: Inactive (7) Cervical cancer screening: Status: Inactive (8) Oxygen dependent: Status: Inactive (9) Obesity hypoventilation syndrome: Status: Inactive (10) Obstructive sleep apnea: Status: Inactive (11) Morbid obesity: Status: Inactive (12) Mixed incontinence urge and stress: Status: Inactive (13) Diastolic CHF: Status: Inactive (14) Diabetes mellitus: Status: Acute (15) Cocaine use disorder, mild, in sustained remission: Status: Inactive (16) Essential hypertension: Status: Inactive (17) Cerebrovascular accident involving posterior circulation: Status: Inactive (18) Foot pain: Status: Inactive DS: Summary Hospital Course Hospital Course: Please disregard this document, the patient was discharged 2 days later Time Spent with Patient Time attestation: Total time managing care of this patient today ____ minutes. Discharge coordination time: Greater than 30 minutes Quality: Safe Use of Opioids Does Pt have an Active Cancer Diagnosis on the Problem List?: No Quality: Stroke Does the patient have a stroke diagnosis?: No Physical Exam Vital Signs: Vital Signs: Last Vital Signs Temp 97.8 F 01/11/23 11:32 Pulse 100 01/11/23 11:32 Resp 18 01/11/23 11:32 BP 130/89 01/11/23 11:32 Pulse Ox 97 01/11/23 11:32 O2 Del Method Nasal Cannula 01/11/23 11:32 O2 Flow Rate 3 01/11/23 11:32 FiO2 30 01/10/23 19:41 Oxygen Flow Rate 15 01/07/23 14:04 BMI result Body Mass Index 62.5 DS: Data Data Completed and Pending Completed studies during hospitalization [Text1]: Procedures Assistance with Respiratory Ventilation, Less than 24 Consecutive Hours, Continuous Positive Airway Pressure (04/06/22) Insertion of Endotracheal Airway into Trachea, Via Natural or Artificial Opening (04/06/22) Insertion of Infusion Device into Superior Vena Cava, Percutaneous Approach (04/06/22) Introduction of Vasopressor into Central Vein, Percutaneous Approach (04/06/22) Respiratory Ventilation, 24-96 Consecutive Hours (04/06/22) Ultrasonography of Superior Vena Cava, Guidance (04/06/22) Labs on day of discharge: Laboratory Results - last 24 hr 01/10/23 01/10/23 01/11/23 16:02 19:49 07:26 POC Glucose 446 H* 358 H* 146 H 01/11/23 11:03 POC Glucose 292 H Preliminary micro results at discharge 01/07/23 15:44 Blood Culture - Preliminary Blood - Venous No growth after 48 hours. 01/07/23 15:46 Blood Culture - Preliminary Blood - Venous No growth after 48 hours. Discharge Plan Discharge Anticipated Discharge Date/Time: 01/13/23 10:14 Patient Disposition: Home Health Service Discharge Diagnosis: Acute on chronic respiratory failure with hypoxia and hypercapnia acute CHF exacerbation acute COPD exacerbation Referrals: Shanda BINGHAM [Outside] - 3-5 Days Pawel Tsang MD [Physician] - 2 Weeks Dolores Rentreia MD [Primary Care Provider] - 1 Week Discharge Medications: New insulin lispro [Humalog U-100 Insulin] 100 unit/mL Solution See Protocol subcut QIDACHS MDD 30 Qty: 10 0RF Protocol: Insulin Correction Scale Less than or equal to 110 ---- Give (units): 0 111 to 150 Give (units): 0 151 to 200 Give (units): 2 201 to 250 Give (units): 4 251 to 300 Give (units): 6 301 to 350 Give (units): 8 Greater than 350 Give (units): 10 Call MD if Blood Glucose > : 350 prednisone 10 mg tablet See Taper PO DIRECTED Qty: 30 0RF Taper: Prednisone 40 mg daily for 3 Days and 0 Hour 30 mg daily for 3 Days and 0 Hour 20 mg daily for 3 Days and 0 Hour 10 mg daily for 3 Days and 0 Hour Rx Instructions: see taper instructions spironolactone 25 mg Tablet 25 mg PO DAILY 30 Days Qty: 30 0RF Protocol: Hold for SBP< HOLD for SBP < : 90 Continued atorvastatin 80 mg tablet 80 mg PO BEDTIME 90 Days Qty: 90 2RF albuterol sulfate 2.5 mg /3 mL (0.083 %) solution for nebulization 2.5 mg inhalation Q4-6H PRN (Reason: for wheezing) 30 Days Qty: 75 3RF acetaminophen [Tylenol 8 Hour] 650 mg tablet extended release 650 mg PO Q8H PRN (Reason: pain) 30 Days Qty: 90 11RF amlodipine 10 mg tablet 10 mg PO DAILY 90 Days Qty: 90 1RF aspirin 81 mg tablet,delayed release (DR/EC) 81 mg PO DAILY 90 Days Qty: 90 0RF metformin 1,000 mg tablet 1,000 mg PO BID Qty: 180 0RF albuterol sulfate [ProAir HFA] 90 mcg/actuation HFA aerosol inhaler 2 puff PO Q6H PRN (Reason: wheezing) Qty: 8.5 1RF sennosides [Senna Lax] 8.6 mg tablet 17.2 mg PO BID PRN (Reason: constipation) lidocaine 5 % adhesive patch,medicated 1 patch topical DAILY PRN (Reason: Pain) Rx Instructions: leave on most painful area for up to 12 hrs fluticasone propionate [Flonase Allergy Relief] 50 mcg/actuation spray,suspension 1 spray intranasal DAILY PRN (Reason: Allergy Symptoms) Rx Instructions: administer into each nostril Discontinued hydrochlorothiazide 25 mg tablet 25 mg PO DAILY 90 Days Qty: 90 1RF hydralazine 10 mg tablet 10 mg PO BID 90 Days Qty: 180 1RF Protocol: Hold for SBP< HOLD for SBP < : 90 verapamil 120 mg tablet 120 mg PO BID Qty: 180 1RF Protocol: Hold for SBP/HR < HOLD for SBP < : 90 HOLD for HR < : 60 No Action (DME) underpads [Bed Underpads] Pad See Rx Instructions .Route Qty: 40 6RF Rx Instructions: As directed (DME) wipes standard See Rx Instructions .Route .MEDSUPPLY Qty: 200 11RF Rx Instructions: As directed (DME) AeroEclipse II Nebulizer Misc See Rx Instructions .Route Qty: 1 0RF Rx Instructions: As directed (DME) adult diapers pull-ups XXL See Rx Instructions .Route .MEDSUPPLY Qty: 200 11RF Rx Instructions: As directed furosemide 40 mg tablet 40 mg PO DAILY 90 Days Qty: 90 1RF (DME) insulin syringe-needle U-100 [BD Insulin Syringe Ultra-Fine] 0.3 mL 31 gauge x 5/16 syringe See Rx Instructions .Route Qty: 400 3RF Rx Instructions: Use 1 syringe four times a day (DME) FreeStyle Kiya 2 Sensor Kit See Rx Instructions .Route Qty: 1 12RF Rx Instructions: As directed (DME) FreeStyle Kiya 2 [place] Misc See Rx Instructions .Route Qty: 1 0RF Rx Instructions: As directed Discharge Orders: Discharge Order (Routine); Ordered 01/13/23 Ordered By: Joselyn Malone Diet: Advance to usual diet Activity on Discharge: As tolerated Stand Alone Forms: Patient Portal Discharge page Care Plan Goals: see below Health Concerns: acute on chronic hypoxic and hypercarbic respiratory failure acute chf exacerbation acute copd exacerbation DM with hyperglycemia Plan of Treatment: start aldactone, take lasix; follow diabetic and low sodium diet. monitor weight daily Assessment: see discharge summary Discharge Date/Time: 01/13/23 13:14
--- NOTE | 2023-01-11 13:25 | P.CDIM_ITS ---
PROVIDER RESPONSE TEXT: To clarify, the appropriate diagnosis supported by the clinical indicators: Diabetes mellitus Type2 with hyperglycemia QUERY TEXT: PHYSICIAN'S DOCUMENTATION REQUEST Date of Query: 01/11/2023 08:39 AM EDT Patient Name: Ashleigh Keenan Admit Date: 01/08/2023 Dear Jacquie Cota, A review of the medical record indicates additional documentation may be needed. Please review below and update the documentation accordingly. Clinical Indicators: LAB FINDINGS: POC glucose 408 H Insuln Is there a diagnosis that correlates with these lab findings: Diabetes mellitus Type2 with hyperglycemia Other etiology of lab findings please specify Other (explain)Clinically unable to determine (explain)Thank you, Ashley Cabrera, CCS, CDIS Use of terms such as suspected, likely, concern for, or probable (associated with a specific diagnosi s that is being evaluated, monitored, or treated as if it exists) are acceptable and can be coded in the inpatient se tting, when documented at the time of discharge. Please use your independent medical judgment in providing your response. THIS QUERY IS PART OF THE PERMANENT MEDICAL RECORD
--- NOTE | 2023-01-11 13:28 | P.CDIM_ITS ---
PROVIDER RESPONSE TEXT: To clarify, the appropriate diagnosis supported by the clinical indicators: Pressure (decubitus) ulcer/injury to right gluteal fold stage II QUERY TEXT: PHYSICIAN'S DOCUMENTATION REQUEST Date of Query: 01/11/2023 08:43 AM EDT Patient Name: Ashleigh Keenan Admit Date: 01/08/2023 Dear Jacquie Cota, A review of the medical record indicates additional documentation may be needed. Please review below and update the documentation accordingly. Clinical Indicators: Wound assessment notes: pressure ulcer/injury to right gluteal fold Stage II Barrier cream applied Based on the above, could you please provide further information regarding the ulcer/wound: Pressure (decubitus) ulcer/injury to right gluteal fold stage II Other please specify if other etiology Other (explain)Clinically unable to determine (explain)Thank you, Ashley Cabrera, CCS, CDIS Use of terms such as suspected, likely, concern for, or probable (associated with a specific diagnosi s that is being evaluated, monitored, or treated as if it exists) are acceptable and can be coded in the inpatient se tting, when documented at the time of discharge. Please use your independent medical judgment in providing your response. THIS QUERY IS PART OF THE PERMANENT MEDICAL RECORD
--- NOTE | 2023-01-11 14:34 | HO.PM.IMPN ---
Subjective Subjective Date of Service: 01/11/23 Interval History: seen and examined this morning Follow-up for respiratory failure, downgraded from the ICU 01/10 History obtained with the assistance of a floral associate Patient denies any shortness of breath, feeling well Review of Systems Review of Systems: Yes all other systems are reviewed and are negative Constitutional Constitutional: Denies chills and Denies fever(s) ENT Ears, Nose, Mouth, and Throat: Denies dizziness Cardiovascular Cardiovascular: Denies chest pain, Denies palpitations and Denies dyspnea Respiratory Respiratory: Denies cough and Denies dyspnea Gastrointestinal Gastrointestinal: Denies abdominal pain Neurologic Neurologic: Denies dizziness Endocrine Endocrine: Denies palpitations Physical Exam Vital Signs: Vital Signs: Last Vital Signs Temp 97.8 F 01/11/23 11:32 Pulse 100 01/11/23 11:32 Resp 18 01/11/23 11:32 BP 130/89 01/11/23 11:32 Pulse Ox 97 01/11/23 11:32 O2 Del Method Nasal Cannula 01/11/23 11:32 O2 Flow Rate 3 01/11/23 11:32 FiO2 30 01/10/23 19:41 Oxygen Flow Rate 15 01/07/23 14:04 BMI result Body Mass Index 62.5 Const: General: cooperative, comfortable, no acute distress, alert and awake Nutritional Appearance: obese Orientation/consciousness: patient oriented x3 Resp: Other: scattered wheezes Effort & Inspection: normal respiratory effort, able to speak in complete sentences, no respiratory distress and no use of accessory muscles Cardio: Rate: regular rate Heart sounds: S1 normal heart sound present and S2 normal heart sound present GI: Inspection: No distended and Yes obesity Palpation (GI): Soft to palpation and nontender Neuro: General: patient oriented x3, moves all extremities and CN's II-XI intact bilaterally Extrem: Other: trace leg edema Objective Data Active Medications Albuterol/Ipratropium (Albuterol/Iprat 2.5/0.5mg 3 Ml Ampul.Neb) 3 ml INHALE Q4H [facility] Last Admin: 01/11/23 11:10 Dose: 3 ml Documented By: JAQUELINE Dextrose (Dextrose 50 % 25 Gm/50 Ml Syringe) 25 gm IVPUSH Q15M PRN; Protocol PRN Reason: per Hypoglycemia Standing Ord. Furosemide (Furosemide 40 Mg Tablet) 40 mg PO DAILY EUGENIO; Protocol Last Admin: 01/11/23 07:53 Dose: 40 mg Documented By: RENETTA Glucose (Glucose Gel 15 Gm Gel..Gram.) 15 gm PO Q15M PRN; Protocol PRN Reason: per Hypoglycemia Standing Ord. Heparin Sodium (Porcine) (Heparin Sodium,Porcine 5,000 Unit/Ml Vial) 5,000 unit SUBCUT Q8H [facility] Last Admin: 01/11/23 12:54 Dose: 5,000 unit Documented By: RENETTA Insulin Glargine (Insulin Glargine,Hum.Rec.Anlog 100 Unit/Ml 10 Ml Vial) 25 unit SUBCUT BID [facility] Last Admin: 01/11/23 07:52 Dose: Not Given Documented By: RENETTA Non-Admin Reason: BG <150 Insulin Human Lispro (Insulin Lispro 100 Unit/Ml 3 Ml Vial) 0 unit SUBCUT QIDACHS [facility]; Protocol Last Admin: 01/11/23 11:21 Dose: 6 unit Documented By: RENETTA Pharmacy Consult (Consult Rx Perform Med Rec) 1 each MISCELLANE ONCE PRN PRN Reason: Consult order Prednisone (Prednisone 20 Mg Tablet) 40 mg PO DAILY [facility] Last Admin: 01/11/23 07:53 Dose: 40 mg Documented By: RENETTA Spironolactone (Spironolactone 25 Mg Tablet) 25 mg PO DAILY [facility]; Protocol Last Admin: 01/11/23 07:53 Dose: 25 mg Documented By: RENETTA Labs 01/10/23 04:33 01/10/23 04:33 Labs: Laboratory Results - last 24 hr 01/10/23 01/10/23 01/11/23 16:02 19:49 07:26 POC Glucose 446 H* 358 H* 146 H 01/11/23 11:03 POC Glucose 292 H Assessment and Plan (1) Acute on chronic respiratory failure with hypoxemia: Status: Acute Plan This is a 62-year-old morbidly obese type 2 diabetic female longstanding obesity/hypoventilation, COPD on 2L supplemental oxygen at baseline, and obstructive sleep apnea presented with acute on chronic hypercapnia and hypoxic respiratory failure?secondary to COPD exacerbation and CHF s/p diuresis with lasix, aldactone and treatment with bipap, high flow now on 3L NC. downgraded to the medical floor 01/10. Acute on chronic respiratory failure with hypoxia and hypercarbia secondary to CHF and acute COPD exacerbation Off high-flow, back on baseline 3 L nasal cannula Acute COPD exacerbation s/p solu medrol, now on prednisone, continue breathing treatments Acute exacerbation of HFpEF s/p diuresis, now back on po lasix aldactone added in ICU outpatient follow up with cardiology DM with hyperglycemia likely r/t steroids will check HBa1c not on insulin at baseline, was started yesterday in ICU resume baseline metformin will check Hba1c and follow insulin requirements to better determine appropriate insulin regimen on discharge HTN all meds have been on hold since admission BP stable follow bp, if trends up can resume meds one at a time obesity hypoventilation/TAURUS continue bipap (has avaps at baseline) Morbid obesity bmi 62.5 directly contributing to recurrent admissions would benefit from outpatient weight reduction program stage II wound right gluteal fold may be r/t friction rather then pressure continue frequent position changes and continue local wound care dvt ppx - heparin attending - dr. castelan dispo - seen by PT - rec home with PT/VNA services Patient requires ongoing inpatient management for close monitoring of unstable blood sugar Time Spent With Patient Time: Total time managing care of this patient today ____ minutes. Quality Stroke Does the patient have a stroke diagnosis?: No VTE Prior VTE?: No VTE Risk Level:: Medical - moderate - high VTE Device Contraindication: N/A - Device Ordered VTE Drug Contraindication: N/A - Med Ordered
--- NOTE | 2023-01-11 15:49 | MHC.CM.PN ---
PER HOSPITALIST, PT WILL LIKELY BE READY TO DC ON SATURDAY, HOME WITH [facility]. [facility] MADE AWARE VIA [employer]
[2023-01-11 16:42] LABS: Glucose, Whole Blood 319 mg/dL (60-115)
--- NOTE | 2023-01-11 18:27 | PC.NURSE ---
Pt complained of left side chest pain. Provider notified. EKG performed. showed Sinus Rhythm. Will continue to monitor.
[2023-01-11 19:58] LABS: Glucose, Whole Blood 306 mg/dL (60-115)
[2023-01-11] MEDS: metFORMIN HCl 1,000 MG TABLET 1000 MG PO (21:15)
[2023-01-11] MEDS: Insulin Glargine,Hum.rec.anlog 100 UNIT/ML 10 ML VIAL 25 UNIT SUBCUT (21:15)
[2023-01-12] VITALS (13 sets, daily range): BP systolic 124–137; BP diastolic 57–93; PULSE 64–107; RESP 14–20; TEMP 36.1–37.1; O2SAT 93–100; BMI 62.7
[2023-01-12] MEDS: Albuterol/Iprat 2.5/0.5MG 3 ML AMPUL.NEB INHALE ×4 (00:22→23:16)
[2023-01-12] MEDS: Heparin Sodium,Porcine 5,000 UNIT/ML VIAL 5000 UNIT SUBCUT ×3 (05:32→20:18)
[2023-01-12 06:59] LABS: Estimated Average Glucose 189 mg/dL; Hemoglobin A1c % 8.2 %
[2023-01-12 07:46] LABS: Glucose, Whole Blood 128 mg/dL (60-115)
[2023-01-12] MEDS: Spironolactone 25 MG TABLET PO (09:14)
[2023-01-12] MEDS: metFORMIN HCl 1,000 MG TABLET 1000 MG PO ×2 (09:14→20:20)
[2023-01-12] MEDS: Furosemide 40 MG TABLET PO (09:15)
[2023-01-12] MEDS: Insulin Glargine,Hum.rec.anlog 100 UNIT/ML 10 ML VIAL 25 UNIT SUBCUT ×2 (09:15→20:19)
[2023-01-12] MEDS: predniSONE 20 MG TABLET 40 MG PO (09:15)
[2023-01-12 11:57] LABS: Glucose, Whole Blood 225 mg/dL (60-115)
--- NOTE | 2023-01-12 12:06 | HO.PM.IMPN ---
Subjective Subjective Date of Service: 01/12/23 Interval History: seen and examined this morning Follow-up for respiratory failure, downgraded from the ICU 01/10 Review of Systems Review of Systems: Yes all other systems are reviewed and are negative Constitutional Constitutional: Denies chills and Denies fever(s) ENT Ears, Nose, Mouth, and Throat: Denies dizziness Cardiovascular Cardiovascular: Denies chest pain, Denies palpitations and Denies dyspnea Respiratory Respiratory: Denies cough and Denies dyspnea Gastrointestinal Gastrointestinal: Denies abdominal pain Neurologic Neurologic: Denies dizziness Endocrine Endocrine: Denies palpitations Physical Exam Vital Signs: Vital Signs: Last Vital Signs Temp 97.2 F 01/12/23 11:30 Pulse 95 01/12/23 11:30 Resp 18 01/12/23 11:30 BP 131/75 01/12/23 11:30 Pulse Ox 98 01/12/23 11:30 O2 Del Method Nasal Cannula 01/12/23 11:30 O2 Flow Rate 4 01/12/23 11:30 FiO2 30 01/12/23 04:00 Oxygen Flow Rate 15 01/07/23 14:04 BMI result Body Mass Index 62.7 Appearing in no acute distress lung sounds are clear to auscultation heart regular rate rhythm, clear S1, S2 positive bowel sounds, abdomen is soft, nontender neuro patient is alert x3, no focal deficits Objective Data Active Medications Albuterol/Ipratropium (Albuterol/Iprat 2.5/0.5mg 3 Ml Ampul.Neb) 3 ml INHALE Q4H [facility] Last Admin: 01/12/23 11:18 Dose: Not Given Documented By: MARGARET Non-Admin Reason: Decreased Heart Rate Dextrose (Dextrose 50 % 25 Gm/50 Ml Syringe) 25 gm IVPUSH Q15M PRN; Protocol PRN Reason: per Hypoglycemia Standing Ord. Furosemide (Furosemide 40 Mg Tablet) 40 mg PO DAILY [facility]; Protocol Last Admin: 01/12/23 09:15 Dose: 40 mg Documented By: OMERO Glucose (Glucose Gel 15 Gm Gel..Gram.) 15 gm PO Q15M PRN; Protocol PRN Reason: per Hypoglycemia Standing Ord. Heparin Sodium (Porcine) (Heparin Sodium,Porcine 5,000 Unit/Ml Vial) 5,000 unit SUBCUT Q8H [facility] Last Admin: 01/12/23 05:32 Dose: 5,000 unit Documented By: GABRIEL Insulin Glargine (Insulin Glargine,Hum.Rec.Anlog 100 Unit/Ml 10 Ml Vial) 25 unit SUBCUT BID [facility] Last Admin: 01/12/23 09:15 Dose: 25 unit Documented By: OMERO Insulin Human Lispro (Insulin Lispro 100 Unit/Ml 3 Ml Vial) 0 unit SUBCUT QIDACHS [facility]; Protocol Last Admin: 01/12/23 07:54 Dose: Not Given Documented By: OMERO Non-Admin Reason: No Insulin Coverage Insulin Human Lispro (Insulin Lispro 100 Unit/Ml 3 Ml Vial) 5 unit SUBCUT QIDACHS [facility] Metformin HCl (Metformin Hcl 1,000 Mg Tablet) 1,000 mg PO BID [facility] Last Admin: 01/12/23 09:14 Dose: 1,000 mg Documented By: OMERO Pharmacy Consult (Consult Rx Perform Med Rec) 1 each MISCELLANE ONCE PRN PRN Reason: Consult order Prednisone (Prednisone 20 Mg Tablet) 40 mg PO DAILY [facility] Last Admin: 01/12/23 09:15 Dose: 40 mg Documented By: OMERO Senna (Sennosides 8.6 Mg Tablet) 17.2 mg PO BID PRN PRN Reason: constipation Spironolactone (Spironolactone 25 Mg Tablet) 25 mg PO DAILY [facility]; Protocol Last Admin: 01/12/23 09:14 Dose: 25 mg Documented By: OMERO Labs 01/10/23 04:33 01/10/23 04:33 Labs: Laboratory Results - last 24 hr 01/11/23 01/11/23 01/12/23 16:29 19:43 06:01 POC Glucose 319 H 306 H Estimat Average Glucose 189 Hemoglobin A1c % 8.2 01/12/23 01/12/23 07:28 11:32 POC Glucose 128 H 225 H Estimat Average Glucose Hemoglobin A1c % Assessment and Plan (1) Acute on chronic respiratory failure with hypoxemia: Status: Acute Plan This is a 62-year-old morbidly obese type 2 diabetic female longstanding obesity/hypoventilation, COPD on 2L supplemental oxygen at baseline, and obstructive sleep apnea presented with acute on chronic hypercapnia and hypoxic respiratory failure?secondary to COPD exacerbation and CHF s/p diuresis with lasix, aldactone and treatment with bipap, high flow now on 3L NC. downgraded to the medical floor 01/10. Acute on chronic respiratory failure with hypoxia and hypercarbia secondary to CHF and acute COPD exacerbation Off high-flow back on baseline 3 L nasal cannula Acute COPD exacerbation s/p solumedrol, now on prednisone, continue breathing treatments Acute exacerbation of HFpEF s/p diuresis, now back on po lasix aldactone added in ICU outpatient follow up with cardiology DM with hyperglycemia likely r/t steroids HBa1c 8.2 resume baseline metformin HTN all meds have been on hold since admission, verapamil, HCTZ, hydralazine amlodipine added back obesity hypoventilation/TAURUS continue bipap (has avaps at baseline) Morbid obesity bmi 62.7 directly contributing to recurrent admissions would benefit from outpatient weight reduction program stage II wound right gluteal fold may be r/t friction rather then pressure continue frequent position changes and continue local wound care dvt ppx - heparin attending - dr. Harris dispo - seen by PT - rec home with PT/VNA services Patient requires ongoing inpatient management for close monitoring of unstable blood sugar Time Spent With Patient Time: Total time managing care of this patient today ____ minutes. Quality Stroke Does the patient have a stroke diagnosis?: No VTE Prior VTE?: No VTE Risk Level:: Medical - moderate - high VTE Device Contraindication: N/A - Device Ordered VTE Drug Contraindication: N/A - Med Ordered
[2023-01-12] MEDS: Insulin Lispro 100 UNIT/ML 3 ML VIAL SUBCUT ×6 (12:09→20:20)
[2023-01-12 16:24] LABS: Glucose, Whole Blood 287 mg/dL (60-115)
--- NOTE | 2023-01-12 19:05 | PC.NURSE ---
walked with pt today. pt did not make long walk just from bed to the door. pt qkh30-42% on 3L NC wahile walking. pt reported more than 25 days not walking around. pt was crying and felf pain due to leg pain. per pt, pt got leg twitching prior to hospital. pt was crying and felt sob on exertion has to sit on the commode to rest before walking back to her bed. HR was elevated 130s-140. Graphic Design Specialist notified.
[2023-01-12 20:07] LABS: Glucose, Whole Blood 215 mg/dL (60-115)
[2023-01-13 03:11] VITALS: PULSE 87; RESP 18; O2SAT 95
[2023-01-13] MEDS: Albuterol/Iprat 2.5/0.5MG 3 ML AMPUL.NEB INHALE ×3 (03:11→11:08)
[2023-01-13 04:00] VITALS: BP 131/66; PULSE 94; RESP 18; TEMP 35.9; O2SAT 97
[2023-01-13] MEDS: Heparin Sodium,Porcine 5,000 UNIT/ML VIAL 5000 UNIT SUBCUT (05:48)
[2023-01-13 07:26] VITALS: PULSE 79; RESP 18; O2SAT 96
[2023-01-13 07:54] VITALS: BP 129/72; PULSE 72; RESP 18; TEMP 36.4; O2SAT 97
[2023-01-13 08:02] LABS: Glucose, Whole Blood 73 mg/dL (60-115)
[2023-01-13] MEDS: Insulin Glargine,Hum.rec.anlog 100 UNIT/ML 10 ML VIAL 25 UNIT SUBCUT (09:34)
[2023-01-13] MEDS: Insulin Lispro 100 UNIT/ML 3 ML VIAL SUBCUT (09:35)
[2023-01-13] MEDS: metFORMIN HCl 1,000 MG TABLET 1000 MG PO (09:36)
[2023-01-13] MEDS: predniSONE 20 MG TABLET 40 MG PO (09:36)
[2023-01-13] MEDS: amLODIPine Besylate 2.5 MG TABLET 7.5 MG PO (09:36)
[2023-01-13] MEDS: Spironolactone 25 MG TABLET PO (09:36)
[2023-01-13] MEDS: Furosemide 40 MG TABLET PO (09:36)
--- NOTE | 2023-01-13 10:19 | PM.DS ---
DS: Providers Provider Date of Service: 01/13/23 Date of admission: 01/07/23 20:18 Primary care physician: Dolores Dubois MD DS: Diagnosis Discharge Diagnosis (1) Acute on chronic respiratory failure with hypoxemia: Status: Acute DS: Summary Hospital Course Hospital Course: History and physical as per admitting provider. Ms. Keenan? is a 62-year-old Pashto-speaking only female?with past medical history of chronic hypercapnic hypoxemic respiratory failure related to COPD on 2 L supplemental O2 at baseline, morbid obesity, TAURUS on CPAP with obesity hypoventilation syndrome, diastolic congestive heart failure, hypertension, CVA,? qsn-wakfpnh-lulqhcnek type 2 diabetes, hyperlipidemia, cocaine abuse and hypertensive emergency. She was BIBA? with progressively worsening shortness of breath and found to be 60% on room air at home by EMS. She denied any fevers or chills.?On arrival to the emergency room, the patient's blood pressure 154/79, heart rate 106, temp 99.0,? O2 sat 96% on 15 L? non-rebreather.?? Laboratory data significant for WBC? 13.7,? chloride 84, carbon dioxide 41, anion gap 24, BUN 21, creatinine 0.74, initial lactic acid 3.5, 2 hour follow-up 2.5, BNP 56. VBG showed a pH 7.34, pCO2 102, PO2 63, HC03 56, B.E.? 24.7. Urinalysis was negative for UTI or hematuria.?Imaging: XR/XR chest 1V: Cardiomegaly with pulmonary venous congestion and mild interstitial edema, most consistent with CHF. CT/CT chest wo IV con: Lungs are hypoexpanded with bibasilar consolidation/atelectasis. Mild patchy hazy airspace disease otherwise. Likely tiny bilateral pleural effusions.ED COURSE:?The patient was? placed on BiPAP.? She was given [id number] mg, a DuoNeb, Lasix 80 mg, and? Zosyn 3.375 g. The patient was admitted to ICU for acute hypercapnic respiratory failure requiring BiPAP. 62-year-old woman treated for respiratory failure with hypoxia and hypercarbia secondary to CHF and acute COPD exacerbation. She was initially admitted to the ICU on BiPAP, transition to high-flow and then to nasal cannula. She is currently back to her baseline on 3 L. She was treated with IV Solu-Medrol scheduled DuoNebs. She will go home on a prednisone taper. She was treated with IV diuretics for heart failure with preserved ejection fraction and transition back to oral Lasix. Aldactone was added while she was in the ICU. She should follow-up with Cardiology outpatient. She did have some episodes of elevated blood sugar secondary to steroid use, treated with sliding scale. A1c is 8.2. She was started on Lantus 25 units twice daily here, she will continue this at home. Her blood pressures had been on the lower side despite history of hypertension. The only medication that was added back with the amlodipine. Her verapamil, hydrochlorothiazide and hydralazine were stopped and her blood pressure remained stable at this time. Obesity hypoventilation syndrome/TAURUS. Continue BiPAP at home (avaps) Stage II gluteal fold wound. Continue frequent position changes and local wound care as needed Time Spent with Patient Time attestation: Total time managing care of this patient today ____ minutes. Discharge coordination time: Greater than 30 minutes Quality: Safe Use of Opioids Does Pt have an Active Cancer Diagnosis on the Problem List?: No Quality: Stroke Does the patient have a stroke diagnosis?: No Physical Exam Vital Signs: Vital Signs: Last Vital Signs Temp 97.5 F 01/13/23 07:54 Pulse 72 01/13/23 07:54 Resp 18 01/13/23 07:54 BP 129/72 01/13/23 07:54 Pulse Ox 97 01/13/23 07:54 O2 Del Method Nasal Cannula 01/13/23 07:54 O2 Flow Rate 3 01/13/23 07:54 FiO2 30 01/13/23 00:00 Oxygen Flow Rate 15 01/07/23 14:04 BMI result Body Mass Index 62.7 Appearing in no acute distress head is normocephalic atraumatic eyes pupils are PERRLA sclera is anicteric mouth throat mucous membranes are intact and moist neck is supple no lymphadenopathy, no JVD noted lung sounds are clear to auscultation heart regular rate rhythm, clear S1, S2 positive bowel sounds, abdomen is soft, nontender neuro patient is alert x3, no focal deficits DS: Data Data Completed and Pending Completed studies during hospitalization [Text1]: Procedures Assistance with Respiratory Ventilation, Less than 24 Consecutive Hours, Continuous Positive Airway Pressure (04/06/22) Insertion of Endotracheal Airway into Trachea, Via Natural or Artificial Opening (04/06/22) Insertion of Infusion Device into Superior Vena Cava, Percutaneous Approach (04/06/22) Introduction of Vasopressor into Central Vein, Percutaneous Approach (04/06/22) Respiratory Ventilation, 24-96 Consecutive Hours (04/06/22) Ultrasonography of Superior Vena Cava, Guidance (04/06/22) Labs on day of discharge: Laboratory Results - last 24 hr 01/12/23 01/12/23 01/12/23 11:32 16:19 19:41 POC Glucose 225 H 287 H 215 H 01/13/23 07:58 POC Glucose 73 Discharge Plan Discharge Anticipated Discharge Date/Time: 01/13/23 10:14 Patient Disposition: Home Health Service Discharge Diagnosis: Acute on chronic respiratory failure with hypoxia and hypercapnia acute CHF exacerbation acute COPD exacerbation Referrals: Pawel Tsang MD [Physician] - 2 Weeks Dolores Renteria MD [Primary Care Provider] - 1 Week Discharge Medications: New insulin lispro [Humalog U-100 Insulin] 100 unit/mL Solution See Protocol subcut QIDACHS MDD 30 Qty: 10 0RF Protocol: Insulin Correction Scale Less than or equal to 110 ---- Give (units): 0 111 to 150 Give (units): 0 151 to 200 Give (units): 2 201 to 250 Give (units): 4 251 to 300 Give (units): 6 301 to 350 Give (units): 8 Greater than 350 Give (units): 10 Call MD if Blood Glucose > : 350 prednisone 10 mg tablet See Taper PO DIRECTED Qty: 30 0RF Taper: Prednisone 40 mg daily for 3 Days and 0 Hour 30 mg daily for 3 Days and 0 Hour 20 mg daily for 3 Days and 0 Hour 10 mg daily for 3 Days and 0 Hour Rx Instructions: see taper instructions spironolactone 25 mg Tablet 25 mg PO DAILY 30 Days Qty: 30 0RF Protocol: Hold for SBP< HOLD for SBP < : 90 Continued atorvastatin 80 mg tablet 80 mg PO BEDTIME 90 Days Qty: 90 2RF albuterol sulfate 2.5 mg /3 mL (0.083 %) solution for nebulization 2.5 mg inhalation Q4-6H PRN (Reason: for wheezing) 30 Days Qty: 75 3RF acetaminophen [Tylenol 8 Hour] 650 mg tablet extended release 650 mg PO Q8H PRN (Reason: pain) 30 Days Qty: 90 11RF amlodipine 10 mg tablet 10 mg PO DAILY 90 Days Qty: 90 1RF aspirin 81 mg tablet,delayed release (DR/EC) 81 mg PO DAILY 90 Days Qty: 90 0RF metformin 1,000 mg tablet 1,000 mg PO BID Qty: 180 0RF albuterol sulfate [ProAir HFA] 90 mcg/actuation HFA aerosol inhaler 2 puff PO Q6H PRN (Reason: wheezing) Qty: 8.5 1RF furosemide 40 mg tablet 40 mg PO DAILY Qty: 30 0RF sennosides [Senna Lax] 8.6 mg tablet 17.2 mg PO BID PRN (Reason: constipation) lidocaine 5 % adhesive patch,medicated 1 patch topical DAILY PRN (Reason: Pain) Rx Instructions: leave on most painful area for up to 12 hrs fluticasone propionate [Flonase Allergy Relief] 50 mcg/actuation spray,suspension 1 spray intranasal DAILY PRN (Reason: Allergy Symptoms) Rx Instructions: administer into each nostril Discontinued hydrochlorothiazide 25 mg tablet 25 mg PO DAILY 90 Days Qty: 90 1RF hydralazine 10 mg tablet 10 mg PO BID 90 Days Qty: 180 1RF Protocol: Hold for SBP< HOLD for SBP < : 90 verapamil 120 mg tablet 120 mg PO BID Qty: 180 1RF Protocol: Hold for SBP/HR < HOLD for SBP < : 90 HOLD for HR < : 60 No Action (DME) underpads [Bed Underpads] Pad See Rx Instructions .Route Qty: 40 6RF Rx Instructions: As directed (DME) wipes standard See Rx Instructions .Route .MEDSUPPLY Qty: 200 11RF Rx Instructions: As directed (DME) AeroEclipse II Nebulizer Misc See Rx Instructions .Route Qty: 1 0RF Rx Instructions: As directed (DME) adult diapers pull-ups XXL See Rx Instructions .Route .MEDSUPPLY Qty: 200 11RF Rx Instructions: As directed Discharge Orders: Discharge Order (Routine); Ordered 01/13/23 Ordered By: Joselyn Malone Diet: Advance to usual diet Activity on Discharge: As tolerated Stand Alone Forms: Patient Portal Discharge page Care Plan Goals: see below Health Concerns: acute on chronic hypoxic and hypercarbic respiratory failure acute chf exacerbation acute copd exacerbation DM with hyperglycemia Plan of Treatment: start aldactone, take lasix; follow diabetic and low sodium diet. monitor weight daily Assessment: see discharge summary
--- NOTE | 2023-01-13 10:39 | MHC.CM.PN ---
Addendum entered by Renetta Grover 01/13/23 12:36: PT TO ARRANGE TRANSPORT Original Note: [facility] HAS CONFIRMED THEY WILL SEE PT WITHIN 48 HOURS OF DC
[2023-01-13 11:09] VITALS: PULSE 88; RESP 18; O2SAT 95
[2023-01-13 12:12] LABS: Glucose, Whole Blood 161 mg/dL (60-115)
== END 2023-01-13 13:14 | disposition home health service (06) | DRG 194 ==
LOC: HO.ED 17:44 → HO.EDOVER 20:35 → HO.ICU 20:57 → HO.IMC 01-10 13:29
PROVIDERS: Internal Medicine Cardiovascular Disease; Physician Assistant Medical; Admitting Provider Nurse Practitioner Family; Emergency Provider Student in an Organized Health Care Education/Training Program; PCP Internal Medicine; Visit Provider Nurse Practitioner Acute Care
DX: I11.0 Hypertensive heart disease with heart failure (principal); J96.21 Acute and chronic respiratory failure with hypoxia; L89.312 Pressure ulcer of right buttock, stage 2; Z99.81 Dependence on supplemental oxygen; J96.22 Acute and chronic respiratory failure with hypercapnia; J44.1 Chronic obstructive pulmonary disease with (acute) exacerbation; I50.33 Acute on chronic diastolic (congestive) heart failure; Z68.44 Body mass index [BMI] 60.0-69.9, adult; E11.65 Type 2 diabetes mellitus with hyperglycemia; F14.11 Cocaine abuse, in remission; E66.2 Morbid (severe) obesity with alveolar hypoventilation; Z87.891 Personal history of nicotine dependence; Z79.4 Long term (current) use of insulin; Z79.84 Long term (current) use of oral hypoglycemic drugs; Z79.899 Other long term (current) drug therapy
CPT/HCPCS: 36415; 71045; 71250; 80048; 80053; 81003; 82040; 82803; 82947; 83036; 83605; 83735; 83880; 84100; 84484; 85025; 85610; 87040; 93005; 93308; 94640; 94660; 97163; 99285; J0456; J1643; J1940; J2543; J2930

== ENCOUNTER → 2023-01-07 14:02 | Outpatient (BNV) | payer OTHER, SELFPAY | PROVIDERS: Admitting Provider Nurse Practitioner Family; Emergency Provider Student in an Organized Health Care Education/Training Program; PCP Internal Medicine; Visit Provider Internal Medicine | DX: I49.1 Atrial premature depolarization (principal) | CPT/HCPCS: 93010 ==

== ENCOUNTER 2023-01-07 20:18 | Outpatient (BNV) | payer OTHER, SELFPAY | END 2023-01-11 17:54 | PROVIDERS: Admitting Provider Nurse Practitioner Family; Emergency Provider Student in an Organized Health Care Education/Training Program; PCP Internal Medicine; Visit Provider Internal Medicine Cardiovascular Disease | DX: I49.1 Atrial premature depolarization (principal) | CPT/HCPCS: 93010 ==

== ENCOUNTER 2023-01-07 20:18 | Outpatient (BNV) | payer OTHER, SELFPAY | END 2023-01-08 07:00 | PROVIDERS: Admitting Provider Nurse Practitioner Family; Emergency Provider Student in an Organized Health Care Education/Training Program; PCP Internal Medicine; Visit Provider Internal Medicine | DX: I50.30 Unspecified diastolic (congestive) heart failure (principal) | CPT/HCPCS: 93308 ==

== ENCOUNTER → 2023-01-07 20:18 | Outpatient (BNV) | payer OTHER, SELFPAY | PROVIDERS: Admitting Provider Nurse Practitioner Family; Emergency Provider Student in an Organized Health Care Education/Training Program; PCP Internal Medicine; Visit Provider Physician Assistant Medical | DX: J96.21 Acute and chronic respiratory failure with hypoxia (principal) | CPT/HCPCS: 99232; 99233; 99239; 99499 ==

== ENCOUNTER → 2023-01-07 20:18 | Outpatient (BNV) | payer OTHER, SELFPAY | PROVIDERS: Admitting Provider Nurse Practitioner Family; Emergency Provider Student in an Organized Health Care Education/Training Program; PCP Internal Medicine; Visit Provider Nurse Practitioner Family | DX: J96.21 Acute and chronic respiratory failure with hypoxia (principal); I50.9 Heart failure, unspecified; I50.30 Unspecified diastolic (congestive) heart failure; J44.9 Chronic obstructive pulmonary disease, unspecified; Z99.81 Dependence on supplemental oxygen; E66.2 Morbid (severe) obesity with alveolar hypoventilation; G47.33 Obstructive sleep apnea (adult) (pediatric); E66.01 Morbid (severe) obesity due to excess calories; E11.9 Type 2 diabetes mellitus without complications | CPT/HCPCS: 99291 ==

== ENCOUNTER 2023-02-11 17:32 | Inpatient (IN) | payer OTHER, SELFPAY ==
--- NOTE | ~2023-02-11 | XR_ITS ---
EXAMINATION: XR CHEST CLINICAL INFORMATION: Respiratory failure COMPARISON: Portable chest 02/12/2023 TECHNIQUE: AP upright portable view of the chest was obtained. 10:35 AM FINDINGS: Lung volumes are low. The patient is positioned such that the hemidiaphragms obscure the left lung base. There is no focal consolidation interstitial pulmonary edema or pneumothorax. Peribronchial thickening is noted no overt pleural effusion. The cardiac silhouette is enlarged, as before. There is marked degenerative change of the right shoulder and the acromioclavicular joints bilaterally. XR/XR chest 1V IMPRESSION: 1. Low lung volumes. 2. No acute disease.
--- NOTE | ~2023-02-11 | XR_ITS ---
EXAMINATION: XR CHEST CLINICAL INFORMATION: Hypoxia COMPARISON: 02/11/2023 TECHNIQUE: Frontal view of the chest was obtained. FINDINGS: No new abnormalities compared to 02/11/2023. Lungs are well expanded. Again noted is the large cardiac silhouette and prominent central pulmonary vessels. No pulmonary consolidation. No overt pleural effusion, pneumothorax or other significant change. The visualized bones are intact. Again noted are osteophytes at degenerated acromioclavicular and glenohumeral joints. XR/XR chest 1V IMPRESSION: Cardiomegaly and pulmonary vascular congestion. No overt pulmonary edema.
--- NOTE | ~2023-02-11 | XR_ITS ---
EXAMINATION: XR CHEST CLINICAL INFORMATION: Shortness of breath COMPARISON: Chest x-ray January 07, 2023. CT chest January 07, 2023 TECHNIQUE: Frontal portable view of the chest was obtained. 1823 hours FINDINGS: Heart size is enlarged. Moderate prominence of the central pulmonary vessels and increased lung markings which is similar prior study of January 07, 2023. No overt pulmonary edema. No focal consolidation. No large pleural effusion. Degenerative arthropathy of the acromioclavicular joints bilateral. Marked degenerative change of the right glenohumeral joint. Superior subluxation of humeral head suggesting chronic rotator cuff tendon tear right shoulder. XR/XR chest 1V IMPRESSION: 1. Cardiomegaly. 2. Moderate prominence of the central pulmonary vessels and increased lung markings similar prior study of January 07, 2023. Findings consistent with congestive heart failure.
[2023-02-11 17:42] VITALS: BP 120/62; BP 140/90; PULSE 117; PULSE 145; RESP 18; O2SAT 93; O2SAT 98; BMI 61.5
--- NOTE | 2023-02-11 17:42 | ECG_ITS ---
Test Reason : SOB Blood Pressure : / mmHG Vent. Rate : 144 BPM Atrial Rate : 000 BPM P-R Int : 000 ms QRS Dur : 080 ms QT Int : 262 ms P-R-T Axes : 000 020 156 degrees QTc Int : 405 ms Atrial fibrillation with rapid ventricular response Low voltage QRS Nonspecific ST and T wave abnormality Abnormal ECG When compared with ECG of 11-JAN-2023 17:54, Atrial fibrillation has replaced Sinus rhythm Nonspecific T wave abnormality now evident in Anterolateral leads Vent. rate has increased Referred By: Stephanie Serrano Electronically Signed By:DEVONTE MILLER
--- NOTE | 2023-02-11 17:49 | ED_ITS ---
HPI - SOB/Dyspnea General Chief Complaint: Dyspnea Stated Complaint: Respiratory distress Time Seen by Provider: 02/11/23 17:42 Source: patient Mode of arrival: ambulatory Limitations: no limitations History of Present Illness HPI Narrative: Patient comes to the emergency room complaining of shortness of breath that started this morning. Patient states that she used several nebulization treatments without any relief. When EMS arrived, they gave her a DuoNeb, no Solu-Medrol or magnesium, started her on 15 L on a non-rebreather. When patient arrives here, patient speaking in full sentences, patient was switched to OxyMask 6 L, saturating 93%. Related Data Home Medications Medication Instructions Recorded Confirmed lidocaine 5 % topical patch 1 patch topical DAILY PRN Pain 01/07/23 02/11/23 sennosides 8.6 mg tablet (Senna 17.2 mg PO BID PRN constipation 01/07/23 02/11/23 Lax) dulaglutide 0.75 mg/0.5 mL 0.75 mg subcut TU@1430 02/11/23 02/11/23 subcutaneous pen injector ([facility]) Previous Rx's Medication Instructions Recorded underpads (Bed Underpads) #40 ea 01/23/22 wipes #200 ea 01/23/22 nebulizers (AeroEclipse II #1 ea 02/01/22 Nebulizer) atorvastatin 80 mg tablet 80 mg PO BEDTIME 90 days #90 tabs 05/18/22 albuterol sulfate 2.5 mg/3 mL 2.5 mg (3 mL) inhalation Q4-6H PRN 08/13/22 (0.083 %) solution for nebulization for wheezing 30 days #75 mL acetaminophen 650 mg 650 mg PO Q8H PRN pain 30 days #90 08/19/22 tablet,extended release (Tylenol 8 tabs Hour) amlodipine 10 mg tablet 10 mg PO DAILY 90 days #90 tabs 09/27/22 metformin 1,000 mg tablet 1,000 mg PO BID #180 tabs 10/29/22 adult diapers pull-ups #200 ea 01/04/23 furosemide 40 mg tablet 40 mg PO DAILY 90 days #90 tabs 01/16/23 flash glucose scanning reader #1 ea 01/22/23 (FreeStyle Kiya 2 Bushnell) flash glucose sensor (FreeStyle #1 ea 01/22/23 Kiya 2 Sensor kit) insulin syringe-needle U-100 0.3 #400 ea 01/22/23 mL 31 gauge x 5/16 (BD Insulin Syringe Ultra-Fine) aspirin 81 mg tablet,delayed 81 mg PO DAILY 90 days #90 tabs 01/26/23 release fluticasone propionate 50 1 spray intranasal DAILY PRN 01/26/23 mcg/actuation nasal Allergy Symptoms #16 grams spray,suspension (Flonase Allergy Relief) pen needle, diabetic 31 gauge x #100 ea 02/01/23 5/16 (Easy Comfort Pen Steele) albuterol sulfate 90 mcg/actuation 2 puff PO Q6H PRN for wheezing 30 02/05/23 aerosol inhaler (Ventolin HFA) days #18 ea Allergies Allergy/AdvReac Type Severity Reaction Status Date / Time No Known Allergies Allergy Verified 12/19/22 11:43 Review of Systems Review of Systems: Constitutional : No Weight loss, No Fever, No Chills, No Night Sweats, No Fatigue, No Malaise ENT/Mouth : No Hearing loss, No Ear Pain, No Nasal Congestion, No Sinus Pain, No Hoarseness, No sore throat, No Rhinorrhea, No Swallowing Difficulty Eyes: No Eye Pain, No Swelling, No Redness, No Foreign Body, No Discharge, No Vision Changes Cardiovascular : No Chest Pain, No SOB, No Dyspnea on Exertion, No Orthopnea, No Edema, No Palpitations Respiratory : Complaining of cough, wheezing, shortness of breath worse with exertion, uses 3 L at home for COPD Gastrointestinal : No Nausea, No Vomiting, No Diarrhea, No Constipation, No abdominal Pain, No Hematochezia, No Melena Genitourinary : no irregular bleeding, No Dysuria, No Urinary Frequency, No Hematuria, No Urinary Incontinence, No Urgency, No Flank Pain, No Urinary Flow Changes, No Hesitancy Musculoskeletal : No joint pain, No Myalgias, No Joint Swelling Skin : No Skin Lesions, No rash Neuro : No Weakness, No Numbness, No Paresthesias, No Loss of Consciousness, No Dizziness, No Headache Psych : No Anxiety/Panic, No Depression, No SI/HI/AH/VH, No Social Issues, Heme/Lymph: No Bruising, No Bleeding,No Lymphadenopathy Endocrine : No Polyuria, No Polydipsia, No Temperature Intolerance [facility] Past Medical History Medical History Cerebrovascular accident involving posterior circulation Cervical cancer screening Cocaine use disorder, mild, in sustained remission Congestive heart failure COPD (chronic obstructive pulmonary disease) COPD (chronic obstructive pulmonary disease) Diabetes mellitus Diastolic CHF Essential hypertension Foot pain Mixed incontinence urge and stress Moderate asthma Morbid obesity Obesity Obesity hypoventilation syndrome Obstructive sleep apnea TAURUS (obstructive sleep apnea) Oxygen dependent Redness of left eye Screening for breast cancer Screening for colon cancer Surgical History History of cholecystectomy History of cholecystectomy History of open reduction and internal fixation (ORIF) procedure History of open reduction and internal fixation (ORIF) procedure History of tubal ligation History of tubal ligation Family History Family History Father Medical history unknown Mother Diabetes Hypertension Father Medical history unknown Mother Hypertension Diabetes Other Substance use disorder Social History Social History Household Members: Spouse Housing: House Do you presently have visiting nurse or other home services: Yes Alcohol intake: never Patient Tobacco Use Status: Former Tobacco user Tobacco use type: Cigarette Cigarette Packs Per Day: 0.75 Cigarettes Per Day: 15.0 Years Smoked: 31 years e-Cigarette/Vaping Use: Never Used Second Hand Smoke Exposure: Yes Substance Use Type: Crack/Cocaine Advance Directives: Yes Advance Directives on File: Yes Advance Directives Date on File: 08/28/21 service: No Current occupational status: disabled Cognitive needs: Yes (walker/wheelchair/cane) Hearing needs: No Vision needs: Yes Physical Exam Vital Signs: Vital Signs: Last Vital Signs Pulse 117 H 02/11/23 20:17 Resp 22 H 02/11/23 20:17 BP 122/62 02/11/23 18:42 Pulse Ox 90 L 02/11/23 18:42 O2 Del Method Oxymask 02/11/23 18:42 BMI result Body Mass Index 61.5 Const: Other: Appearance: Alert. Oriented X3. No acute distress. Eyes: Pupils equal, round and reactive to light. ENT: Pharynx normal. Neck: Normal inspection. Neck supple. No lymph nodes noted. No crepitus CVS: Tachycardic irregular heart rate Pulses normal. Normal S1 and S2 Respiratory: Mild to moderate respiratory distress, patient speaking full sentences, mild bilateral wheezing Abdomen: Soft and nontender. No rigidity. No distention. Skin: Skin warm and dry. Normal skin color. Normal skin turgor. Extremities: +2 pitting edema bilaterally No Lacerations. No Rash Neuro: Oriented X 3. No motor deficit. No sensory deficit. Moving all extremities. No slurred speech. CN 2 through 12 grossly intact Psych: calm, cooperative, normal affect Course Course Course Narrative: -all of patient's labs and imaging pending -patient's blood pressure stable, heart rate of 45 secondary to multiple nebulization treatments, EKG for rhythm check pending. Patient receiving Solu- Medrol, antibiotics due to patient's comorbidities -18:02, sepsis not suspected Medications Administered Generic Name Dose Route Start Last Admin Trade Name Freq PRN Reason Stop Dose Admin Albuterol/Ipratropium 3 ml 02/11/23 20:00 02/11/23 20:14 Albuterol/Iprat 2.5/0.5mg 3 Ml Ampul.Neb INHALE 3 ml RQ4H WHILE AWAKE EUGENIO Administration Discontinued Medications Generic Name Dose Route Start Last Admin Trade Name Freq PRN Reason Stop Dose Admin Apixaban 5 mg 02/11/23 18:36 02/11/23 18:56 Apixaban 5 Mg Tablet PO 02/11/23 18:37 5 mg ONCE ONE Administration Dexamethasone Sodium Phosphate 6 mg 02/11/23 18:27 02/11/23 18:50 Dexamethasone Sod Phosphate 4 Mg/Ml Vial IVPUSH 02/11/23 18:28 6 mg ONCE ONE Administration Magnesium Sulfate 2 gm in 50 mls @ 25 mls/hr 02/11/23 17:54 02/11/23 18:06 Magnesium Sulfate/H2o IV 02/11/23 19:53 25 mls/hr ONCE ONE Administration Azithromycin 500 mg/ Sodium 250 mls @ 125 mls/hr 02/11/23 17:54 02/11/23 18:53 Chloride IV 02/11/23 19:53 125 mls/hr ONCE ONE Administration Methylprednisolone Sodium Succinate 125 mg 02/11/23 17:54 02/11/23 18:10 Methylprednisolone Sod Succ 125 Mg/2 Ml Vial IVPUSH 02/11/23 17:55 125 mg ONCE ONE Administration Metoprolol Tartrate 5 mg 02/11/23 18:18 02/11/23 18:51 Metoprolol Tartrate 5 Mg/5 Ml Vial IVPUSH 02/11/23 18:19 5 mg ONCE ONE Administration Medical Decision Making Medical Decision Making [facility] Narrative: -my interpretation of EKG: Atrial fibrillation, heart rate 144, no ST segment depression or elevation, no T-wave inversion, QTC 405 -I discussed a kg with the patient, to her knowledge, she has never been diagnosed with atrial fibrillation before. Also, I reviewed patient's medical record from inpatient and cardiology notes, no record of atrial fibrillation. -patient's heart rate 145, AFib, blood pressure 120/62, patient receiving 5 mg of IV metoprolol. -patient's CHADS2 Vasc score is 6. Patient agreeable to start anticoagulation, discussed with the patient risks versus benefits, decided to go ahead and start with Eliquis, given 1st dose in the emergency room. -reviewed patient's previous records, in 2021 patient had an ischemic CVA. -discussed with the patient that she will be admitted once the workup is completed -my interpretation of venous blood gases, patient's pCO2 62, bicarb of 50, pH 7.5, all chronic -patient tested positive for COVID -after 5 mg of IV metoprolol, patient's heart rate in the 120s. Patient's blood pressure 122/62, patient will be started on a Cardizem drip -magnesium level 1.3, given IV magnesium. Differential Diagnosis Differential Diagnoses: The differential diagnosis associated with the pre sentation includes (Asthma, COPD, COVID, CHF) Admission/Observation Consideration of admission/observation: Escalation of care including admission/observation considered Consult Healthcare Provider Management of the patient was discussed with: Hospitalist (Discussed the patient with Dr. Olmstead/CHANTALE De Souza, patient being admitted) Lab Data [facility] Lab Attestation statement: I reviewed the patient's lab results. 02/11/23 18:04 02/11/23 17:48 Labs: Lab Results 02/11/23 02/11/23 02/11/23 Range/Units 17:48 18:04 18:04 WBC 9.1 (4.8-10.8) X10*3/uL RBC 3.61 L (4.20-5.50) X10*6/uL Hgb 9.4 L (12.0-16.0) g/dl Hct 32.2 L (37.0-47.0) % MCV 89.2 (80.0-98.0) fL MCH 26.0 L (27.0-33.0) pg MCHC 29.2 L (31.0-35.0) g/dl RDW 15.0 (11.0-16.0) % Plt Count 376 (160-400) X10*3/uL MPV 9.7 (9.4-12.3) fL Immature Gran % (Auto) 0.6 H (0.0-0.4) % Neut % (Auto) 80.1 H (45-73) % Lymph % (Auto) 12.5 L (20-40) % [place] % (Auto) 5.9 (2-11) % Eos % (Auto) 0.8 (0-4) % Baso % (Auto) 0.1 (0-2) % Lymph # (Auto) 1.1 L (1.2-4.9) X10*3/uL [place] # (Auto) 0.5 (0.1-1.2) X10*3/uL Eos # (Auto) 0.1 (0.0-0.4) X10*3/uL Baso # (Auto) 0.0 (0.0-0.2) X10*3/uL Abs Immat Gran (auto) 0.05 H (0.00-0.03) X10*3/uL Absolute Neuts (auto) 7.3 (2.0-8.3) x10*3/uL Absolute Nucleated RBC 0.000 (0.0-0.012) X10*3/uL Nucleated RBC % (auto) 0.0 (0.0-0.2) /100WBC PT 13.1 (11.1-13.3) SEC INR 1.1 (0.9-1.1) VBG pH (7.32-7.43) VBG pCO2 mmHg VBG pO2 mmHg VBG HCO3 (22-26) mmol/L VBG O2 Saturation % VBG Base Excess mmol/L Sodium 143 (135-145) mmol/L Potassium 3.9 (3.3-5.1) mmol/L Chloride 91 L (96-108) mmol/L Carbon Dioxide 40 H* D (22-29) mmol/L Anion Gap 16 (12-20) BUN 14 (9-16) mg/dL Creatinine 0.79 (0.5-1.4) mg/dL Estim Creat Clear Calc 107.5 Estimated GFR > 60 Random Glucose 196 H (60-115) mg/dL Lactic Acid (0.5-2.0) mmol/L Calcium 9.3 (8.4-10.2) mg/dL Magnesium 1.1 L* (1.6-2.6) mg/dL Total Bilirubin 0.4 (0.0-1.0) mg/dL Direct Bilirubin 0.2 (0.0-0.5) mg/dL AST 11 (5-31) U/L ALT 16 (0-31) U/L Alkaline Phosphatase 86 (39-117) U/L Lactate Dehydrogenase 223 H (122-220) U/L Troponin I High Sens (<3.5-17.0) ng/L C-Reactive Protein 7.09 H (< or = 0.50) mg/dL B-Natriuretic Peptide (<100) pg/mL Total Protein 7.1 (6.5-8.0) g/dL Albumin 4.1 (3.5-5.0) g/dL COVID-19 (MICHEL) (Negative) COVID-19 Clin Com 02/11/23 02/11/23 02/11/23 Range/Units 18:04 18:04 18:04 WBC (4.8-10.8) X10*3/uL RBC (4.20-5.50) X10*6/uL Hgb (12.0-16.0) g/dl Hct (37.0-47.0) % MCV (80.0-98.0) fL MCH (27.0-33.0) pg MCHC (31.0-35.0) g/dl RDW (11.0-16.0) % Plt Count (160-400) X10*3/uL MPV (9.4-12.3) fL Immature Gran % (Auto) (0.0-0.4) % Neut % (Auto) (45-73) % Lymph % (Auto) (20-40) % [place]ockley % (Auto) (2-11) % Eos % (Auto) (0-4) % Baso % (Auto) (0-2) % Lymph # (Auto) (1.2-4.9) X10*3/uL [place] # (Auto) (0.1-1.2) X10*3/uL Eos # (Auto) (0.0-0.4) X10*3/uL Baso # (Auto) (0.0-0.2) X10*3/uL Abs Immat Gran (auto) (0.00-0.03) X10*3/uL Absolute Neuts (auto) (2.0-8.3) x10*3/uL Absolute Nucleated RBC (0.0-0.012) X10*3/uL Nucleated RBC % (auto) (0.0-0.2) /100WBC PT (11.1-13.3) SEC INR (0.9-1.1) VBG pH (7.32-7.43) VBG pCO2 mmHg VBG pO2 mmHg VBG HCO3 (22-26) mmol/L VBG O2 Saturation % VBG Base Excess mmol/L Sodium (135-145) mmol/L Potassium (3.3-5.1) mmol/L Chloride (96-108) mmol/L Carbon Dioxide (22-29) mmol/L Anion Gap (12-20) BUN (9-16) mg/dL Creatinine (0.5-1.4) mg/dL Estim Creat Clear Calc Estimated GFR Random Glucose (60-115) mg/dL Lactic Acid 2.1 H* (0.5-2.0) mmol/L Calcium (8.4-10.2) mg/dL Magnesium (1.6-2.6) mg/dL Total Bilirubin (0.0-1.0) mg/dL Direct Bilirubin (0.0-0.5) mg/dL AST (5-31) U/L ALT (0-31) U/L Alkaline Phosphatase (39-117) U/L Lactate Dehydrogenase (122-220) U/L Troponin I High Sens 14.1 D (<3.5-17.0) ng/L C-Reactive Protein (< or = 0.50) mg/dL B-Natriuretic Peptide 225 H (<100) pg/mL Total Protein (6.5-8.0) g/dL Albumin (3.5-5.0) g/dL COVID-19 (MICHEL) (Negative) COVID-19 Clin Com 02/11/23 02/11/23 Range/Units 18:04 18:09 WBC (4.8-10.8) X10*3/uL RBC (4.20-5.50) X10*6/uL Hgb (12.0-16.0) g/dl Hct (37.0-47.0) % MCV (80.0-98.0) fL MCH (27.0-33.0) pg MCHC (31.0-35.0) g/dl RDW (11.0-16.0) % Plt Count (160-400) X10*3/uL MPV (9.4-12.3) fL Immature Gran % (Auto) (0.0-0.4) % Neut % (Auto) (45-73) % Lymph % (Auto) (20-40) % [place] % (Auto) (2-11) % Eos % (Auto) (0-4) % Baso % (Auto) (0-2) % Lymph # (Auto) (1.2-4.9) X10*3/uL [place] # (Auto) (0.1-1.2) X10*3/uL Eos # (Auto) (0.0-0.4) X10*3/uL Baso # (Auto) (0.0-0.2) X10*3/uL Abs Immat Gran (auto) (0.00-0.03) X10*3/uL Absolute Neuts (auto) (2.0-8.3) x10*3/uL Absolute Nucleated RBC (0.0-0.012) X10*3/uL Nucleated RBC % (auto) (0.0-0.2) /100WBC PT (11.1-13.3) SEC INR (0.9-1.1) VBG pH 7.51 H (7.32-7.43) VBG pCO2 62 mmHg VBG pO2 76 mmHg VBG HCO3 50 H (22-26) mmol/L VBG O2 Saturation 97.0 % VBG Base Excess 24.0 mmol/L Sodium (135-145) mmol/L Potassium (3.3-5.1) mmol/L Chloride (96-108) mmol/L Carbon Dioxide (22-29) mmol/L Anion Gap (12-20) BUN (9-16) mg/dL Creatinine (0.5-1.4) mg/dL Estim Creat Clear Calc Estimated GFR Random Glucose (60-115) mg/dL Lactic Acid (0.5-2.0) mmol/L Calcium (8.4-10.2) mg/dL Magnesium (1.6-2.6) mg/dL Total Bilirubin (0.0-1.0) mg/dL Direct Bilirubin (0.0-0.5) mg/dL AST (5-31) U/L ALT (0-31) U/L Alkaline Phosphatase (39-117) U/L Lactate Dehydrogenase (122-220) U/L Troponin I High Sens (<3.5-17.0) ng/L C-Reactive Protein (< or = 0.50) mg/dL B-Natriuretic Peptide (<100) pg/mL Total Protein (6.5-8.0) g/dL Albumin (3.5-5.0) g/dL COVID-19 (MICHEL) Positive A (Negative) COVID-19 Clin Com See Note Independent Interpretation I performed an independent interpretation of an: EKG and Plain X-Ray (Interpretation of x-ray, mild pulmonary edema versus infiltrate with right lower lobe) Independent Historian Clinical information obtained from an independent historian. History obtained from or confirmed by: Spouse External Record Review External record reviewed: Inpatient record and Outpatient record Chronic Conditions Patient?s care impacted by: Other (Asthma, COPD) Critical Care Time Critical Care Time Critical Care Time: Yes Total Critical Care Time: 75 Attestation: I have personally provided critical care time. Time includes review of lab data, radiology results, discussion with consultants, and monitoring for potential decompensation. Intervention performed as documented. Discharge Plan Discharge Clinical Impression: Atrial fibrillation, new onset, COVID-19, Hypomagnesemia Patient Disposition: Admitted As Inpatient
[2023-02-11] MEDS: Magnesium Sulfate/H2O 2 GM/50 ML PIGGYBACK IV ×2 (18:06→21:41)
[2023-02-11 18:09] LABS: MANUAL DIFF FLAG NO
[2023-02-11] MEDS: methylPREDNISolone Sod Succ 125 MG/2 ML VIAL IVPUSH (18:10)
[2023-02-11 18:13] LABS: Basophils Percent Auto 0.1 % (0-2); Eosinophils Absolute Auto 0.1 X10*3/uL (0.0-0.4); Eosinophils Percent Auto 0.8 % (0-4); Hematocrit 32.2 % (37.0-47.0); Hemoglobin 9.4 g/dl (12.0-16.0); Imm Gran Abs Auto 0.05 X10*3/uL (0.00-0.03); Imm Gran Pct Auto 0.6 % (0.0-0.4); Lymphocytes Absolute Auto 1.1 X10*3/uL (1.2-4.9); Lymphocytes Percent Auto 12.5 % (20-40); Mean Corpuscular HGB Conc 29.2 g/dl (31.0-35.0); Mean Corpuscular Volume 89.2 fL (80.0-98.0); Mean Platelet Volume 9.7 fL (9.4-12.3); Monocytes Absolute Auto 0.5 X10*3/uL (0.1-1.2); Monocytes Percent Auto 5.9 % (2-11); Neutrophils Absolute Auto 7.3 x10*3/uL (2.0-8.3); Neutrophils Percent Auto 80.1 % (45-73); Platelet Count 376 X10*3/uL (160-400); Red Blood Count 3.61 X10*6/uL (4.20-5.50); White Blood Count 9.1 X10*3/uL (4.8-10.8)
[2023-02-11 18:14] LABS: Venous Blood Gas Refer to POC result
[2023-02-11 18:15] LABS: VBG HCO3 50 mmol/L (22-26); VBG pCO2 62 mmHg; VBG pH 7.51 (7.32-7.43); VBG pO2 76 mmHg
[2023-02-11 18:20] LABS: INTERNATIONAL NORM RATIO 1.1 (0.9-1.1); Prothrombin Time 13.1 SEC (11.1-13.3)
[2023-02-11 18:20] LABS: Alanine Aminotransferase 16 U/L (0-31); Albumin Level 4.1 g/dL (3.5-5.0); Alkaline Phosphatase 86 U/L (39-117); Anion Gap 16 (12-20); Aspartate Amino Transferase 11 U/L (5-31); Bilirubin Direct 0.2 mg/dL (0.0-0.5); Bilirubin Total 0.4 mg/dL (0.0-1.0); Blood Urea Nitrogen 14 mg/dL (9-16); Calcium 9.3 mg/dL (8.4-10.2); Carbon Dioxide 40 mmol/L (22-29); Chloride 91 mmol/L (96-108); Creatinine Clr Calc Pharmacy 107.5; Estimated Glomerular Filt Rate > 60; Glucose Random 196 mg/dL (60-115); Potassium 3.9 mmol/L (3.3-5.1); Sodium 143 mmol/L (135-145); Total Protein 7.1 g/dL (6.5-8.0)
[2023-02-11 18:23] LABS: COVID-19 Test Positive (Negative); IDNOW Serial# 08D9AD1C
[2023-02-11 18:34] LABS: Lactic Acid 2.1 mmol/L (0.5-2.0)
[2023-02-11 18:38] LABS: B Type Natriuretic Peptide 225 pg/mL (<100)
[2023-02-11 18:42] VITALS: BP 122/62; PULSE 136; RESP 18; O2SAT 90
[2023-02-11 18:44] LABS: Troponin-I High Sensitivity 14.1 ng/L (<3.5-17.0)
[2023-02-11] MEDS: dexAMETHasone sod phosphate 4 MG/ML VIAL 6 MG IVPUSH (18:50)
[2023-02-11] MEDS: Metoprolol Tartrate 5 MG/5 ML VIAL IVPUSH (18:51)
[2023-02-11] MEDS: Azithromycin 500 MG in 0.9 % Sodium Chloride 250 ML 125 MG IV (18:53)
[2023-02-11] MEDS: Apixaban 5 MG TABLET PO (18:56)
--- NOTE | 2023-02-11 19:48 | P.HPHOSP_ITS ---
History of Present Illness Date of Service: 02/11/23 Attending physician on admission: Carlos Olmstead Chief Complaint: Shortness of breath, orthopnea 62-year-old female with history of hypertension, asthma/COPD overlap, chronic hypoxemic respiratory failure on 2 L supplemental O2 at baseline, obstructive sleep apnea, heart failure with preserved ejection fraction, history of CVA, and insulin-dependent type 2 diabetes presented to the ED earlier today for evaluation of dyspnea on exertion and orthopnea ongoing for 1 day. Denies any fevers, chills, sore throat, sinus pain, rhinorrhea, abdominal pain, nausea, vomiting, diarrhea, cough, lightheadedness, palpitations, or chest pain. She is also reporting left flank pain that has been ongoing for over a month after sustaining a fall. Reports the pain radiates down the left leg and makes it difficult to ambulate. She ambulates with a walker at baseline. On arrival, patient afebrile, tachycardic to 145, hypoxic to 85% placed on 9 L supplemental O2 maintaining oximetry 89-92%. H/H 9.4/32.2%, MCV 89.2. Renal function baseline, electrolyte levels normal except for chloride 91, CO2 40 both consistent with baseline. Magnesium also low at 1.1. Lactic acid 2.1. Troponin 14.1, BNP 225. COVID-19 positive. Chest x-ray shows cardiomegaly and moderate prominence of the central pulmonary vessels and increased lung markings , consistent with CHF. EKG shows atrial fibrillation with RVR, rate [address]/T-wave abnormality. In ED, given 2 g IV magnesium, 5 mg IV Lopressor, 500 mg IV Zithromax, 6 mg dexamethasone, 125 mg methylprednisolone. Also started on 5 mg Eliquis. Cardizem drip has also been ordered. Review of Systems Review of Systems: General: No fevers, malaise, unintentional weight loss HEENT: No blurred vision, diplopia. No sore throat, nasal congestion, rhinorrhea, sinus pain, ear pain Cardiovascular: No chest pain, palpitations. +BLE edema Respiratory: +shortness of breath, wheezing. No cough GI: No abdominal pain, nausea, vomiting, diarrhea, constipation, melena, hematochezia : No dysuria, hematuria, increased urinary frequency, decreased urinary output MSK: No myalgia, back pain. +left flank pain Neuro: No headaches, weakness, paresthesias. +radiculopathy Skin: No rashes or lesions [facility] Medical History Cerebrovascular accident involving posterior circulation Cervical cancer screening Cocaine use disorder, mild, in sustained remission Congestive heart failure COPD (chronic obstructive pulmonary disease) COPD (chronic obstructive pulmonary disease) Diabetes mellitus Diastolic CHF Essential hypertension Foot pain Mixed incontinence urge and stress Moderate asthma Morbid obesity Obesity Obesity hypoventilation syndrome Obstructive sleep apnea TAURUS (obstructive sleep apnea) Oxygen dependent Redness of left eye Screening for breast cancer Screening for colon cancer Family History Father Medical history unknown Mother Diabetes Hypertension Father Medical history unknown Mother Hypertension Diabetes Other Substance use disorder Surgical History History of cholecystectomy History of cholecystectomy History of open reduction and internal fixation (ORIF) procedure History of open reduction and internal fixation (ORIF) procedure History of tubal ligation History of tubal ligation Social History Household Members: Spouse Housing: House Do you presently have visiting nurse or other home services: Yes Alcohol intake: never Patient Tobacco Use Status: Former Tobacco user Tobacco use type: Cigarette Cigarette Packs Per Day: 0.75 Cigarettes Per Day: 15.0 Years Smoked: 31 years e-Cigarette/Vaping Use: Never Used Second Hand Smoke Exposure: Yes Substance Use Type: Crack/Cocaine Advance Directives: Yes Advance Directives on File: Yes Advance Directives Date on File: 08/28/21 service: No Current occupational status: disabled Cognitive needs: Yes (walker/wheelchair/cane) Hearing needs: No Vision needs: Yes Meds Allergies Allergy/AdvReac Type Severity Reaction Status Date / Time No Known Allergies Allergy Verified 12/19/22 11:43 Active Medications: Current Medications Acetaminophen (Acetaminophen 325 Mg Tablet) 650 mg PO Q6H PRN PRN Reason: Pain, Mild (Pain Scale 1-3) Dextrose (Dextrose 50 % 25 Gm/50 Ml Syringe) 25 gm IVPUSH Q15M PRN; Protocol PRN Reason: per Hypoglycemia Standing Ord. Docusate Sodium (Docusate Sodium 100 Mg Capsule) 100 mg PO DAILY PRN PRN Reason: Constipation Furosemide (Furosemide 40 Mg/4 Ml Vial) 40 mg IVPUSH DAILY [facility]; Protocol Glucose (Glucose Gel 15 Gm Gel..Gram.) 15 gm PO Q15M PRN; Protocol PRN Reason: per Hypoglycemia Standing Ord. Magnesium Sulfate (Magnesium Sulfate/H2o) 2 gm in 50 mls @ 25 mls/hr IV ONCE ONE Stop: 02/11/23 19:53 Last Admin: 02/11/23 18:06 Dose: 25 mls/hr Azithromycin 500 mg/ Sodium (Chloride) 250 mls @ 125 mls/hr IV ONCE ONE Stop: 02/11/23 19:53 Last Admin: 02/11/23 18:53 Dose: 125 mls/hr Diltiazem HCl 125 mg/ Sodium (Chloride) 125 mls @ 0 mls/hr IVCONT .Q0M [facility]; Protocol Ceftriaxone Sodium 1 gm/ (Sodium Chloride) 50 mls @ 100 mls/hr IV ONCE ONE Stop: 02/11/23 19:59 Insulin Human Lispro (Insulin Lispro 100 Unit/Ml 3 Ml Vial) 0 unit SUBCUT QIDACHS [facility]; Protocol Ondansetron HCl (Ondansetron Hcl 4 Mg/2 Ml Vial) 4 mg IVPUSH Q8H PRN PRN Reason: Nausea and Vomiting Sodium Chloride (0.9 % Sodium Chloride Flush 3 Ml Syringe) 3 ml IVFLUSH QSHIFT [facility] Home Medications Medication Instructions Recorded Confirmed Last Taken Type lidocaine 5 % topical patch 1 patch topical DAILY PRN Pain 01/07/23 02/11/23 Unknown History sennosides 8.6 mg tablet (Senna 17.2 mg PO BID PRN constipation 01/07/23 02/11/23 Unknown History Lax) dulaglutide 0.75 mg/0.5 mL 0.75 mg subcut TU@1430 02/11/23 02/11/23 Unknown History subcutaneous pen injector (Trulicity) Physical Exam Vital Signs and Narrative: Vital Signs: Last Vital Signs Pulse 136 H 02/11/23 18:42 Resp 18 02/11/23 18:42 BP 122/62 02/11/23 18:42 Pulse Ox 90 L 02/11/23 18:42 O2 Del Method Oxymask 02/11/23 18:42 BMI result Body Mass Index 61.5 Constitutional - Awake and Alert, No apparent distress Eyes - PERRLA, EOMI Cardiovascular - S1S2, RRR, 3+ ble edema Respiratory - Normal lung expansion, Normal respiratory effort, No respiratory distress on 9L supplemental O2 via oxymask, expiratory wheezes bilaterally with scattered crackles Gastrointestinal - mordbidly obese abdomen, NT / ND; +BS; No rebound or guarding Extremities - no calf tenderness bilaterally, no swelling Musculoskeletal - Normal inspection, normal ROM. TTP left flank/SI joint Skin - Warm/Dry Neurological - Alert & oriented x3 Psychological - Appropriate affect Results Labs 02/11/23 18:04 02/11/23 17:48 Labs: Laboratory Results - last 24 hr 02/11/23 02/11/23 02/11/23 17:48 18:04 18:04 MCV 89.2 MCH 26.0 L MCHC 29.2 L RDW 15.0 Plt Count 376 MPV 9.7 Immature Gran % (Auto) 0.6 H Neut % (Auto) 80.1 H Lymph % (Auto) 12.5 L [place] % (Auto) 5.9 Eos % (Auto) 0.8 Baso % (Auto) 0.1 Lymph # (Auto) 1.1 L [place] # (Auto) 0.5 Eos # (Auto) 0.1 Baso # (Auto) 0.0 Abs Immat Gran (auto) 0.05 H Absolute Neuts (auto) 7.3 Absolute Nucleated RBC 0.000 Nucleated RBC % (auto) 0.0 PT 13.1 INR 1.1 VBG pH VBG pCO2 VBG pO2 VBG HCO3 VBG O2 Saturation VBG Base Excess Anion Gap 16 Estim Creat Clear Calc 107.5 Estimated GFR > 60 Random Glucose 196 H Lactic Acid Calcium 9.3 Total Bilirubin 0.4 Direct Bilirubin 0.2 AST 11 ALT 16 Alkaline Phosphatase 86 B-Natriuretic Peptide Total Protein 7.1 Albumin 4.1 COVID-19 (MICHEL) COVID-19 Clin Com 02/11/23 02/11/23 02/11/23 18:04 18:04 18:04 MCV MCH MCHC RDW Plt Count MPV Immature Gran % (Auto) Neut % (Auto) Lymph % (Auto) [place] % (Auto) Eos % (Auto) Baso % (Auto) Lymph # (Auto) [place] # (Auto) Eos # (Auto) Baso # (Auto) Abs Immat Gran (auto) Absolute Neuts (auto) Absolute Nucleated RBC Nucleated RBC % (auto) PT INR VBG pH VBG pCO2 VBG pO2 VBG HCO3 VBG O2 Saturation VBG Base Excess Anion Gap Estim Creat Clear Calc Estimated GFR Random Glucose Lactic Acid 2.1 H* Calcium Total Bilirubin Direct Bilirubin AST ALT Alkaline Phosphatase B-Natriuretic Peptide 225 H Total Protein Albumin COVID-19 (MICHEL) Positive A COVID-19 Clin Com See Note 02/11/23 18:09 MCV MCH MCHC RDW Plt Count MPV Immature Gran % (Auto) Neut % (Auto) Lymph % (Auto) [place] % (Auto) Eos % (Auto) Baso % (Auto) Lymph # (Auto) [place] # (Auto) Eos # (Auto) Baso # (Auto) Abs Immat Gran (auto) Absolute Neuts (auto) Absolute Nucleated RBC Nucleated RBC % (auto) PT INR VBG pH 7.51 H VBG pCO2 62 VBG pO2 76 VBG HCO3 50 H VBG O2 Saturation 97.0 VBG Base Excess 24.0 Anion Gap Estim Creat Clear Calc Estimated GFR Random Glucose Lactic Acid Calcium Total Bilirubin Direct Bilirubin AST ALT Alkaline Phosphatase B-Natriuretic Peptide Total Protein Albumin COVID-19 (MICHEL) COVID-19 Clin Com Imaging Radiologist's Impressions: Impressions Chest X-Ray 02/11/23 18:26 IMPRESSION: 1. Cardiomegaly. 2. Moderate prominence of the central pulmonary vessels and increased lung markings similar prior study of January 07, 2023. Findings consistent with congestive heart failure. Assessment and Plan (1) Atrial fibrillation, new onset: Status: Acute (2) COVID-19: Status: Acute (3) CHF exacerbation: Status: Acute Plan 62-year-old female with history of hypertension, asthma/COPD overlap, chronic hypoxemic respiratory failure on 2 L supplemental O2 at baseline, obstructive sleep apnea, heart failure with preserved ejection fraction, history of CVA, and non dependent type 2 diabetes admitted for new onset atrial fibrillation and CHF exacerbation with COVID-19 and acute on chronic hypoxemic respiratory failure. # acute on chronic hypoxemic hypercapnic respiratory failure -VBG consistent with baseline, CO2 62 -likely secondary to CHF exacerbation, COVID-19 -uses 2 L supplemental O2 at baseline, continue supplemental O2 to maintain oximetry around 90% # new onset atrial fibrillation with RVR -EKG shows atrial fibrillation, rate 144 -Cardizem drip per protocol -cardiology consult -repeat echocardiogram per Cardiology. Last performed 01/08 -no contraindication to anticoagulation. Chads Vasc score 6. Initiate Eliquis 5 mg b.i.d. and patient educated on anticoagulation -TSH pending. Mag repleted -monitor on telemetry # acute CHF exacerbation -wheezing on exam likely cardiac in nature. CXR shows moderate prominence of the central pulmonary vessel increased lung markings consistent with CHF -BNP 220 -IV lasix 40mg daily -cardiac diet -strict I&O -daily weights -echo on 01/08 showed normal LV systolic function with EF 65% -monitor on telemetry -cardiology consult # COVID-19 -Decadron 6 mg (initiated 02/11) -continue supplemental O2 as above -symptomatic management -droplet/contact precautions #Acute hypomagnesemia -Mag 1.1, repleted -Follow BMP/mag # acute lactic acidosis -likely secondary to metformin and albuterol use, not severe sepsis # asthma/COPD -mild exacerbation the wheezing is more likely related to cardiac etiology -DuoNebs q.4h while awake, albuterol p.r.n. #non insulin-dependent type 2 diabetes -last A1c 8.2%. Discharged last admission with insulin but has not been using -Initiate 10 untis lantus daily, humalog on ssi -hold trulicity and metformin -POC glucose -Diabetic diet # hypertension -blood pressure reasonably controlled -continue home meds # HLD -continue statin DVT prophylaxis-Eliquis full code Patient requires inpatient stay of at least 2 midnights for management of new onset atrial fibrillation on Cardizem drip with acute CHF exacerbation and acute hypoxemic respiratory failure requiring IV diuresis and increased supplemental O2 from baseline as well as expert consultation and close monitoring Time Spent With Patient Time: Total time managing care of this patient today ____ minutes. Quality Stroke Does the patient have a stroke diagnosis?: No VTE Prior VTE?: No VTE Risk Level:: Medical - moderate - high VTE Device Contraindication: Treatment Not Indicated VTE Drug Contraindication: N/A - Med Ordered
[2023-02-11 19:52] LABS: C Reactive Protein 7.09 mg/dL (< or = 0.50); Lactate Dehydrogenase 223 U/L (122-220); Magnesium 1.1 mg/dL (1.6-2.6)
--- NOTE | 2023-02-11 19:57 | PHA.MEDREC ---
Pharmacy Consult ? Medication Reconciliation Pharmacy has completed the medication reconciliation. Utilized operations/dispatch to conduct interview. Patient reports everything is the same as last time she was here. When going through list to confirm, patient reported she no longer takes insulin, both Trebsiba and Humalog. Patient also does not know what spironolcatone is. Patient did confirm all medications stop at discharge on 01/13 were stopped; hydralazine, HCTZ and verapamil. Per claim, lisinopril and thiamine were recently filled but patient reports that they were stopped. Minerva Rawls, PharmD
[2023-02-11 20:09] LABS: Reflex Lactate? Lactic Acid Added
[2023-02-11] MEDS: Albuterol/Iprat 2.5/0.5MG 3 ML AMPUL.NEB INHALE (20:14)
[2023-02-11] MEDS: Furosemide 40 MG/4 ML VIAL IVPUSH (20:16)
[2023-02-11] MEDS: Morphine Sulfate 4 MG/ML CARTRIDGE IVPUSH (20:16)
[2023-02-11 20:17] VITALS: PULSE 117; RESP 22; O2SAT 91
[2023-02-11] MEDS: cefTRIAXone sodium 1 GM in 0.9 % Sodium Chloride 50 ML IV (20:29)
[2023-02-11] MEDS: dilTIAZem HCL 125 MG in 0.9 % Sodium Chloride 100 ML 10 MG IVCONT (20:47)
[2023-02-11 20:56] LABS: Cancel Lactic Acid Canceled
[2023-02-11 21:21] LABS: TSH reflex Free T4 1.82 uIU/mL (0.32-4.0)
[2023-02-11 21:29] LABS: Lactic Acid 0.9 mmol/L (0.5-2.0)
[2023-02-11 21:55] LABS: Glucose, Whole Blood 195 mg/dL (60-115)
[2023-02-11] MEDS: Insulin Lispro 100 UNIT/ML 3 ML VIAL SUBCUT (22:17)
[2023-02-11] MEDS: Atorvastatin Calcium 80 MG TABLET PO (22:17)
[2023-02-12] VITALS (21 sets, daily range): BP systolic 113–144; BP diastolic 72–94; PULSE 97–143; RESP 13–116; TEMP 36.4–36.7; O2SAT 86–94; BMI 61.5
[2023-02-12] MEDS: Acetaminophen 325 MG TABLET 650 MG PO (04:37)
--- NOTE | 2023-02-12 04:44 | PC.NURSE ---
Pt repositioned and medicated per Aug, Notified Rupal Adhikari.
[2023-02-12 06:29] LABS: Basophils Percent Auto 0.1 % (0-2); Hematocrit 32.7 % (37.0-47.0); Hemoglobin 9.7 g/dl (12.0-16.0); Imm Gran Abs Auto 0.07 X10*3/uL (0.00-0.03); Imm Gran Pct Auto 0.8 % (0.0-0.4); Lymphocytes Absolute Auto 0.6 X10*3/uL (1.2-4.9); Lymphocytes Percent Auto 7.3 % (20-40); MANUAL DIFF FLAG SCAN; Mean Corpuscular HGB Conc 29.7 g/dl (31.0-35.0); Mean Corpuscular Hemoglobin 26.6 pg (27.0-33.0); Mean Corpuscular Volume 89.6 fL (80.0-98.0); Mean Platelet Volume 9.5 fL (9.4-12.3); Monocytes Absolute Auto 0.1 X10*3/uL (0.1-1.2); Monocytes Percent Auto 1.1 % (2-11); Neutrophils Absolute Auto 7.6 x10*3/uL (2.0-8.3); Neutrophils Percent Auto 90.7 % (45-73); Platelet Count 384 X10*3/uL (160-400); Red Blood Count 3.65 X10*6/uL (4.20-5.50); Red Cell Distribution Width 15.1 % (11.0-16.0); SCAN SMEAR FLAG 1; White Blood Count 8.4 X10*3/uL (4.8-10.8)
[2023-02-12 06:46] LABS: Anion Gap 17 (12-20); Blood Urea Nitrogen 16 mg/dL (9-16); Calcium 9.1 mg/dL (8.4-10.2); Carbon Dioxide 38 mmol/L (22-29); Chloride 91 mmol/L (96-108); Creatinine Clr Calc Pharmacy 103.5; Estimated Glomerular Filt Rate > 60; Glucose Random 252 mg/dL (60-115); Magnesium 1.9 mg/dL (1.6-2.6); Potassium 4.6 mmol/L (3.3-5.1); SLIDE REVIEW VERIFIED; Sodium 141 mmol/L (135-145)
[2023-02-12 06:53] LABS: Glucose, Whole Blood 241 mg/dL (60-115)
[2023-02-12] MEDS: Insulin Lispro 100 UNIT/ML 3 ML VIAL SUBCUT ×4 (07:20→21:45)
[2023-02-12] MEDS: 0.9 % Sodium Chloride Flush 3 ML SYRINGE IVFLUSH ×2 (07:21→23:43)
--- NOTE | 2023-02-12 07:32 | PC.NURSE ---
pt was desatting to 61% on RA - put oxymask on to increase pt's O2. O2 went up to 91% on 11L via oxymask. pt wanted to eat breakfast so switched pt to 6L via nasal cannula. pt tolerating well naif. insulin administered, IV's flushed. call dumont placed within reach.
--- NOTE | 2023-02-12 07:51 | PC.NURSE ---
RT bedside to give pt breathing treatment - states that he will come back later to give treatment d/t pt's heart rate being elevated (130s-140s). pt back on oxymask as pt did not tolerate switch to NC. pt back on 11L via oxymask. helping pt eat breakfast while also still wearing mask as we do not want O2 to drop.
[2023-02-12] MEDS: Aspirin Enteric Coated 81 MG TABLET.DR PO (08:26)
[2023-02-12] MEDS: dexAMETHasone 6 MG TABLET PO (08:26)
[2023-02-12] MEDS: Apixaban 5 MG TABLET PO (08:27)
[2023-02-12] MEDS: amLODIPine Besylate 10 MG TABLET PO (08:27)
[2023-02-12] MEDS: Insulin Glargine,Hum.rec.anlog 100 UNIT/ML 10 ML VIAL 10 UNIT SUBCUT (08:27)
[2023-02-12] MEDS: Lidocaine 4 % Patch ADH..PATCH 1 PATCH TRANSDERMA (08:28)
[2023-02-12] MEDS: Furosemide 40 MG/4 ML VIAL IVPUSH ×2 (08:28→18:29)
--- NOTE | 2023-02-12 08:45 | PC.NURSE ---
pt's bedside complaining/stating that pt has been wearing same briefs all night and that nobody was tending to the pt throughout the night despite multiple call dumont attempts. this RN and 3 tech's helped completely change, wash, and reposition pt. purewick also applied. upon repositioning pt to comfort, the techs and myself noticed reddened raw skin underneath skin fold on pt's right abdomen that radiates towards pt's right groin area. picture sent to admitting attending via [employer]. barrier cream and powder applied to affected area. pt states no pain in that area. pt still currently resides in afib (120s-130s) on the engine monitor - otherwise vss. pt still tolerating 11L via oxymask (92%-95%). medications administered per provider order. call dumotn placed within reach.
--- NOTE | 2023-02-12 09:19 | MHC.CM.PN ---
Patient is Covid (+); CM spoke with /JESUS @ [phone](). Patient lives alone in an apartment but Jesus will be staying with her @ time of dc.( or Son to transport) Patient has a visiting Nurse(unsure of agency), home O2 from [facility] [place] and 4 hours/day of [employer] services. Home/resume said services is the goal and CM has initiated and will follow for dc planning. PCP is Dr. Dolores Guy.
[2023-02-12] MEDS: dilTIAZem HCL 125 MG in 0.9 % Sodium Chloride 100 ML 15 MG IVCONT ×3 (10:07→23:42)
--- NOTE | 2023-02-12 10:11 | PC.NURSE ---
automotive hardware engineer bedside explaining what afib is to the pt and what the plan is. diltiazem hung and running at 15mls/hr per provider order.
--- NOTE | 2023-02-12 10:43 | PM.CNCAR ---
History of Present Illness History of Present Illness Date of Service: 02/12/23 Requesting physician: Joselyn Malone Consult reason: atrial fibrillation and other (Respiratory failure) Chief complaint: COVID-19 new onset afib,chf exacerbation Narrative: I was consulted to see Ashleigh in cardiology consultation today for elevated BNP with acute respiratory failure and new onset atrial fibrillation. Patient is a 62-year-old female with multiple comorbidities including morbid obesity with Pickwickian syndrome with chronic hypoxemic respiratory failure on home oxygen, obstructive sleep apnea on CPAP, heart failure preserved ejection fraction last echocardiogram EF about 60% with very limited study, insulin-requiring diabetes, CVA present hospital with worsening shortness of breath and history suggestive orthopnea. She denies any symptoms of palpitations. She was noted to have COVID positive. Subsequent troponin was noted to be minimally elevated 14.1 and BNP of 225 which is higher than her baseline. She was noted to be hypoxemic and was started on high flow oxygen therapy with improvement in her oxygenation. Currently on a face mask. Remains in atrial fibrillation rapid ventricular response. Chest x-ray finding suggestive of heart failure. She has received IV Lasix and has been started on Cardizem drip and also has received Eliquis. No reported history of chest pain. History was obtained with help of janitorial account manager. Review of Systems Constitutional: Constitutional: Reports daytime sleepiness and Reports weakness Eyes: Eyes: Reports no additional eye complaints Cardiovascular: Cardiovascular: Denies chest pain, Denies Loss of Consciousness, Denies palpitations, Reports dyspnea on exertion and Reports orthopnea Respiratory: Respiratory: Reports cough and Reports dyspnea on exertion Neurologic: Reports weakness Endocrine: Endocrine: Denies palpitations PMFSH Past Medical History Medical History Cerebrovascular accident involving posterior circulation Cervical cancer screening Cocaine use disorder, mild, in sustained remission Congestive heart failure COPD (chronic obstructive pulmonary disease) COPD (chronic obstructive pulmonary disease) Diabetes mellitus Diastolic CHF Essential hypertension Foot pain Mixed incontinence urge and stress Moderate asthma Morbid obesity Obesity Obesity hypoventilation syndrome Obstructive sleep apnea TAURUS (obstructive sleep apnea) Oxygen dependent Redness of left eye Screening for breast cancer Screening for colon cancer Family History Family History Father Medical history unknown Mother Diabetes Hypertension Father Medical history unknown Mother Hypertension Diabetes Other Substance use disorder Surgical History Surgical History History of cholecystectomy History of cholecystectomy History of open reduction and internal fixation (ORIF) procedure History of open reduction and internal fixation (ORIF) procedure History of tubal ligation History of tubal ligation Social History Social History Household Members: Spouse Housing: House Do you presently have visiting nurse or other home services: Yes Alcohol intake: former Patient Tobacco Use Status: Former Tobacco user Tobacco use type: Cigarette Cigarette Packs Per Day: 0.75 Cigarettes Per Day: 15.0 Years Smoked: 31 years Smoked in Last 30 Days: No e-Cigarette/Vaping Use: Never Used Second Hand Smoke Exposure: Yes Use of substances other than those prescribed or required for medical reasons: No Substance Use Type: Crack/Cocaine Advance Directives: Yes Advance Directives on File: Yes Advance Directives Date on File: 08/28/21 Nutrition Risks: No Nutritional Risk Patient : No service: No Current occupational status: disabled Cognitive needs: Yes (walker/wheelchair/cane) Hearing needs: No Vision needs: Yes Meds Allergies Allergy/AdvReac Type Severity Reaction Status Date / Time No Known Allergies Allergy Verified 12/19/22 11:43 Active Medications: Current Medications Acetaminophen (Acetaminophen 325 Mg Tablet) 650 mg PO Q6H PRN PRN Reason: Pain, Mild (Pain Scale 1-3) Last Admin: 02/12/23 04:37 Dose: 650 mg Albuterol Sulfate (Albuterol Sulfate 90 Mcg 8 Gm Inhaler) 2 puff INHALE RQ4H PRN PRN Reason: sob/wheezing Albuterol/Ipratropium (Albuterol/Iprat 2.5/0.5mg 3 Ml Ampul.Neb) 3 ml INHALE RQ4H WHILE AWAKE [facility] Last Admin: 02/12/23 07:51 Dose: Not Given Amlodipine Besylate (Amlodipine Besylate 10 Mg Tablet) 10 mg PO DAILY [facility]; Protocol Last Admin: 02/12/23 08:27 Dose: 10 mg Apixaban (Apixaban 5 Mg Tablet) 5 mg PO BID [facility] Last Admin: 02/12/23 08:27 Dose: 5 mg Aspirin (Aspirin Enteric Coated 81 Mg Tablet.) 81 mg PO DAILY [facility] Last Admin: 02/12/23 08:26 Dose: 81 mg Atorvastatin Calcium (Atorvastatin Calcium 80 Mg Tablet) 80 mg PO BEDTIME [facility] Last Admin: 02/11/23 22:17 Dose: 80 mg Dexamethasone (Dexamethasone 6 Mg Tablet) 6 mg PO DAILY [facility] Last Admin: 02/12/23 08:26 Dose: 6 mg Dextrose (Dextrose 50 % 25 Gm/50 Ml Syringe) 25 gm IVPUSH Q15M PRN; Protocol PRN Reason: per Hypoglycemia Standing Ord. Docusate Sodium (Docusate Sodium 100 Mg Capsule) 100 mg PO DAILY PRN PRN Reason: Constipation Furosemide (Furosemide 40 Mg/4 Ml Vial) 40 mg IVPUSH DAILY [facility]; Protocol Last Admin: 02/12/23 08:28 Dose: 40 mg Glucose (Glucose Gel 15 Gm Gel..Gram.) 15 gm PO Q15M PRN; Protocol PRN Reason: per Hypoglycemia Standing Ord. Diltiazem HCl 125 mg/ Sodium (Chloride) 125 mls @ 0 mls/hr IVCONT .Q0M [facility]; Protocol Last Admin: 02/12/23 10:07 Dose: 15 mg/hr, 15 mls/hr Insulin Glargine (Insulin Glargine,Hum.Rec.Anlog 100 Unit/Ml 10 Ml Vial) 10 unit SUBCUT DAILY [facility] Last Admin: 02/12/23 08:27 Dose: 10 unit Insulin Human Lispro (Insulin Lispro 100 Unit/Ml 3 Ml Vial) 0 unit SUBCUT QIDACHS [facility]; Protocol Last Admin: 02/12/23 07:20 Dose: 4 unit Lidocaine (Lidocaine 4 % Patch Adh..Patch) 1 patch TRANSDERMA DAILY [facility]; Protocol Last Admin: 02/12/23 08:28 Dose: 1 patch Ondansetron HCl (Ondansetron Hcl 4 Mg/2 Ml Vial) 4 mg IVPUSH Q8H PRN PRN Reason: Nausea and Vomiting Senna (Sennosides 8.6 Mg Tablet) 17.2 mg PO BID PRN PRN Reason: constipation Sodium Chloride (0.9 % Sodium Chloride Flush 3 Ml Syringe) 3 ml IVFLUSH QSHIFT [facility] Last Admin: 02/12/23 07:21 Dose: 3 ml Home Medications Medication Instructions Recorded Confirmed Last Taken Type lidocaine 5 % topical patch 1 patch topical DAILY PRN Pain 01/07/23 02/11/23 Unknown History sennosides 8.6 mg tablet (Senna 17.2 mg PO BID PRN constipation 01/07/23 02/11/23 Unknown History Lax) dulaglutide 0.75 mg/0.5 mL 0.75 mg subcut TU@1430 02/11/23 02/11/23 Unknown History subcutaneous pen injector (Trulicity) Physical Exam Vital Signs: Vital Signs: Last Vital Signs Temp 98.1 F 02/12/23 07:56 Pulse 143 H 02/12/23 10:11 Resp 18 02/12/23 10:11 BP 139/75 02/12/23 10:11 Pulse Ox 93 02/12/23 10:11 O2 Del Method Oxymask 02/12/23 10:11 O2 Flow Rate 11 02/12/23 10:11 BMI result Body Mass Index 61.5 Const: General: cooperative and in distress mild and respiratory Nutritional Appearance: obese other (Markedly obese) Orientation/consciousness: patient oriented x3 HEENT: Head: Yes normocephalic and Yes atraumatic Neck: Neck: Yes trachea midline, Yes supple and Yes other (Cannot evaluate JVD) Resp: Effort & Inspection: decreased respiratory effort Auscultation: diminished lung sounds and other (Cannot appreciate any rales although limited exam) Cardio: Rate: tachycardic Rhythm: abnormal rhythm irregularly irregular Heart sounds: S1 normal heart sound present, S2 normal heart sound present, no click, no gallops, no murmurs and no rubs GI: Inspection: Yes Abdominal panniculus present and Yes obesity Auscultation: normal bowel sounds Skin: General skin exam: no rashes or lesions noted Neuro: General: patient oriented x3 and no focal motor deficits Extrem: General: No clubbing, No cyanosis and Yes edema Objective Labs and Meds 02/12/23 06:14 02/12/23 06:14 Lab results: Laboratory Results - last 24 hr 02/11/23 02/11/23 02/11/23 17:48 18:04 18:04 WBC 9.1 RBC 3.61 L Hgb 9.4 L Hct 32.2 L MCV 89.2 MCH 26.0 L MCHC 29.2 L RDW 15.0 Plt Count 376 MPV 9.7 Immature Gran % (Auto) 0.6 H Neut % (Auto) 80.1 H Lymph % (Auto) 12.5 L [place] % (Auto) 5.9 Eos % (Auto) 0.8 Baso % (Auto) 0.1 Lymph # (Auto) 1.1 L [place] # (Auto) 0.5 Eos # (Auto) 0.1 Baso # (Auto) 0.0 Abs Immat Gran (auto) 0.05 H Absolute Neuts (auto) 7.3 Absolute Nucleated RBC 0.000 Nucleated RBC % (auto) 0.0 Smear Tech's Comments PT 13.1 INR 1.1 VBG pH VBG pCO2 VBG pO2 VBG HCO3 VBG O2 Saturation VBG Base Excess Sodium 143 Potassium 3.9 Chloride 91 L Carbon Dioxide 40 H* D Anion Gap 16 BUN 14 Creatinine 0.79 Estim Creat Clear Calc 107.5 Estimated GFR > 60 POC Glucose Random Glucose 196 H Lactic Acid Calcium 9.3 Magnesium 1.1 L* Total Bilirubin 0.4 Direct Bilirubin 0.2 AST 11 ALT 16 Alkaline Phosphatase 86 Lactate Dehydrogenase 223 H Troponin I High Sens C-Reactive Protein 7.09 H B-Natriuretic Peptide Total Protein 7.1 Albumin 4.1 TSH COVID-19 (MICHEL) COVID-[facility] 02/11/23 02/11/23 02/11/23 18:04 18:04 18:04 WBC RBC Hgb Hct MCV MCH MCHC RDW Plt Count MPV Immature Gran % (Auto) Neut % (Auto) Lymph % (Auto) [place] % (Auto) Eos % (Auto) Baso % (Auto) Lymph # (Auto) [place] # (Auto) Eos # (Auto) Baso # (Auto) Abs Immat Gran (auto) Absolute Neuts (auto) Absolute Nucleated RBC Nucleated RBC % (auto) Smear Tech's Comments PT INR VBG pH VBG pCO2 VBG pO2 VBG HCO3 VBG O2 Saturation VBG Base Excess Sodium Potassium Chloride Carbon Dioxide Anion Gap BUN Creatinine Estim Creat Clear Calc Estimated GFR POC Glucose Random Glucose Lactic Acid 2.1 H* Calcium Magnesium Total Bilirubin Direct Bilirubin AST ALT Alkaline Phosphatase Lactate Dehydrogenase Troponin I High Sens 14.1 D C-Reactive Protein B-Natriuretic Peptide 225 H Total Protein Albumin TSH COVID-19 (MICHEL) COVID-[place] 02/11/23 02/11/23 02/11/23 18:04 18:04 18:09 WBC RBC Hgb Hct MCV MCH MCHC RDW Plt Count MPV Immature Gran % (Auto) Neut % (Auto) Lymph % (Auto) [place] % (Auto) Eos % (Auto) Baso % (Auto) Lymph # (Auto) [place] # (Auto) Eos # (Auto) Baso # (Auto) Abs Immat Gran (auto) Absolute Neuts (auto) Absolute Nucleated RBC Nucleated RBC % (auto) Smear Tech's Comments PT INR VBG pH 7.51 H VBG pCO2 62 VBG pO2 76 VBG HCO3 50 H VBG O2 Saturation 97.0 VBG Base Excess 24.0 Sodium Potassium Chloride Carbon Dioxide Anion Gap BUN Creatinine Estim Creat Clear Calc Estimated GFR POC Glucose Random Glucose Lactic Acid Calcium Magnesium Total Bilirubin Direct Bilirubin AST ALT Alkaline Phosphatase Lactate Dehydrogenase Troponin I High Sens C-Reactive Protein B-Natriuretic Peptide Total Protein Albumin TSH 1.82 COVID-19 (MICHEL) Positive A Bi[employer]ass [facility] [facility] See Note 02/11/23 02/11/23 02/12/23 21:08 21:51 06:14 WBC 8.4 RBC 3.65 L Hgb 9.7 L Hct 32.7 L MCV 89.6 MCH 26.6 L MCHC 29.7 L RDW 15.1 Plt Count 384 MPV 9.5 Immature Gran % (Auto) 0.8 H Neut % (Auto) 90.7 H Lymph % (Auto) 7.3 L [place] % (Auto) 1.1 L Eos % (Auto) 0.0 Baso % (Auto) 0.1 Lymph # (Auto) 0.6 L [place] # (Auto) 0.1 Eos # (Auto) 0.0 Baso # (Auto) 0.0 Abs Immat Gran (auto) 0.07 H Absolute Neuts (auto) 7.6 Absolute Nucleated RBC 0.000 Nucleated RBC % (auto) 0.0 Smear Tech's Comments VERIFIED PT INR VBG pH VBG pCO2 VBG pO2 VBG HCO3 VBG O2 Saturation VBG Base Excess Sodium Potassium Chloride Carbon Dioxide Anion Gap BUN Creatinine Estim Creat Clear Calc Estimated GFR POC Glucose 195 H Random Glucose Lactic Acid 0.9 Calcium Magnesium Total Bilirubin Direct Bilirubin AST ALT Alkaline Phosphatase Lactate Dehydrogenase Troponin I High Sens C-Reactive Protein B-Natriuretic Peptide Total Protein Albumin TSH COVID-19 (MICHEL) COVID-[facility] 02/12/23 02/12/23 06:14 06:49 WBC RBC Hgb Hct MCV MCH MCHC RDW Plt Count MPV Immature Gran % (Auto) Neut % (Auto) Lymph % (Auto) [place] % (Auto) Eos % (Auto) Baso % (Auto) Lymph # (Auto) [place] # (Auto) Eos # (Auto) Baso # (Auto) Abs Immat Gran (auto) Absolute Neuts (auto) Absolute Nucleated RBC Nucleated RBC % (auto) Smear Tech's Comments PT INR VBG pH VBG pCO2 VBG pO2 VBG HCO3 VBG O2 Saturation VBG Base Excess Sodium 141 Potassium 4.6 Chloride 91 L Carbon Dioxide 38 H Anion Gap 17 BUN 16 Creatinine 0.82 Estim Creat Clear Calc 103.5 Estimated GFR > 60 POC Glucose 241 H Random Glucose 252 H Lactic Acid Calcium 9.1 Magnesium 1.9 Total Bilirubin Direct Bilirubin AST ALT Alkaline Phosphatase Lactate Dehydrogenase Troponin I High Sens C-Reactive Protein B-Natriuretic Peptide Total Protein Albumin TSH COVID-19 (MICHEL) COVID-19 Clin Com Imaging Radiologist's impression: Impressions Chest X-Ray 02/11/23 18:26 IMPRESSION: 1. Cardiomegaly. 2. Moderate prominence of the central pulmonary vessels and increased lung markings similar prior study of January 07, 2023. Findings consistent with congestive heart failure. Assessment and Plan (1) Acute on chronic respiratory failure with hypoxemia: Status: Acute Acute hypoxemic respiratory failure in this middle-aged woman with chronic hypoxemic respiratory failure related to morbid obesity as well as COPD/asthma presents with COVID infection and hypoxemic respiratory failure. Has a component of congestive heart failure based on elevated BNP and chest x-ray finding suggestive of fluid overload. Fluid status extremely difficult to assess in this woman. Continue IV diuresis with strict intake and output chart as much as to possible. Continue supportive care. Continue overnight CPAP/BiPAP therapy. Continue pulmonary bronchodilators. Overall prognosis is guarded. (2) Atrial fibrillation, new onset: Status: Acute New onset atrial fibrillation most likely related to acute respiratory illness with underlying multiple comorbidities promoting change in atrium morphology causing high likelihood of getting atrial fibrillation. Continue rate control with IV Cardizem. Her LV ejection fraction is known to be preserved. Can add digoxin to her regimen. Agree with Eliquis 5 mg b.i.d.. Can discontinue aspirin therapy as I do not see any other obvious reason for her to be on aspirin therapy at this time. Will follow with you Time Spent With Patient Time: Total time managing care of this patient today ____ minutes. Procedures Date of Service Date of Service: 02/12/23
--- NOTE | 2023-02-12 11:26 | PC.NURSE ---
hospitalist called about pt's status and what she was for connie mckeon. notified hospitalist she was currently still running at 15mls/hr.
[2023-02-12 11:48] LABS: Glucose, Whole Blood 308 mg/dL (60-115)
--- NOTE | 2023-02-12 11:54 | PC.NURSE ---
pt a&ox3, afib on the clinical research monitor (130s-140s). 94% on 11L via oxymask - otherwise vss. cardizem drip currently running at 15ml/hr. POC = 308mg/dL. 8u of insulin administered per sliding scale and per provider order. pt in no apparent distress. no SOB/WOB noted. productive cough present. repositioned pt to comfort. bedside. call dumont placed within reach.
--- NOTE | 2023-02-12 11:55 | HO.PM.IMPN ---
Subjective Subjective Date of Service: 02/12/23 Physical Exam Vital Signs: Vital Signs: Last Vital Signs Temp 98.1 F 02/12/23 11:53 Pulse 121 H 02/12/23 11:53 Resp 16 02/12/23 11:53 BP 121/74 02/12/23 11:53 Pulse Ox 94 02/12/23 11:53 O2 Del Method Oxymask 02/12/23 11:53 O2 Flow Rate 11 02/12/23 11:53 BMI result Body Mass Index 61.5 Objective Data Active Medications Acetaminophen (Acetaminophen 325 Mg Tablet) 650 mg PO Q6H PRN PRN Reason: Pain, Mild (Pain Scale 1-3) Last Admin: 02/12/23 04:37 Dose: 650 mg Documented By: ROCK Albuterol Sulfate (Albuterol Sulfate 90 Mcg 8 Gm Inhaler) 2 puff INHALE RQ4H PRN PRN Reason: sob/wheezing Albuterol/Ipratropium (Albuterol/Iprat 2.5/0.5mg 3 Ml Ampul.Neb) 3 ml INHALE RQ4H WHILE AWAKE [facility] Last Admin: 02/12/23 11:18 Dose: Not Given Documented By: CHELY Non-Admin Reason: Elevated Heart Rate Amlodipine Besylate (Amlodipine Besylate 10 Mg Tablet) 10 mg PO DAILY [facility]; Protocol Last Admin: 02/12/23 08:27 Dose: 10 mg Documented By: EDSON Apixaban (Apixaban 5 Mg Tablet) 5 mg PO BID [facility] Last Admin: 02/12/23 08:27 Dose: 5 mg Documented By: EDSON Aspirin (Aspirin Enteric Coated 81 Mg Tablet.) 81 mg PO DAILY [facility] Last Admin: 02/12/23 08:26 Dose: 81 mg Documented By: EDSON Atorvastatin Calcium (Atorvastatin Calcium 80 Mg Tablet) 80 mg PO BEDTIME [facility] Last Admin: 02/11/23 22:17 Dose: 80 mg Documented By: BERNARD Dexamethasone (Dexamethasone 6 Mg Tablet) 6 mg PO DAILY [facility] Last Admin: 02/12/23 08:26 Dose: 6 mg Documented By: EDSON Dextrose (Dextrose 50 % 25 Gm/50 Ml Syringe) 25 gm IVPUSH Q15M PRN; Protocol PRN Reason: per Hypoglycemia Standing Ord. Docusate Sodium (Docusate Sodium 100 Mg Capsule) 100 mg PO DAILY PRN PRN Reason: Constipation Furosemide (Furosemide 40 Mg/4 Ml Vial) 40 mg IVPUSH DAILY [facility]; Protocol Last Admin: 02/12/23 08:28 Dose: 40 mg Documented By: EDSON Glucose (Glucose Gel 15 Gm Gel..Gram.) 15 gm PO Q15M PRN; Protocol PRN Reason: per Hypoglycemia Standing Ord. Diltiazem HCl 125 mg/ Sodium (Chloride) 125 mls @ 0 mls/hr IVCONT .Q0M [facility]; Protocol Last Admin: 02/12/23 10:07 Dose: 15 mg/hr, 15 mls/hr Documented By: EDSON Insulin Glargine (Insulin Glargine,Hum.Rec.Anlog 100 Unit/Ml 10 Ml Vial) 10 unit SUBCUT DAILY [facility] Last Admin: 02/12/23 08:27 Dose: 10 unit Documented By: EDSON Insulin Human Lispro (Insulin Lispro 100 Unit/Ml 3 Ml Vial) 0 unit SUBCUT QIDACHS [facility]; Protocol Last Admin: 02/12/23 11:51 Dose: 8 unit Documented By: EDSON Lidocaine (Lidocaine 4 % Patch Adh..Patch) 1 patch TRANSDERMA DAILY [facility]; Protocol Last Admin: 02/12/23 08:28 Dose: 1 patch Documented By: EDSON Ondansetron HCl (Ondansetron Hcl 4 Mg/2 Ml Vial) 4 mg IVPUSH Q8H PRN PRN Reason: Nausea and Vomiting Senna (Sennosides 8.6 Mg Tablet) 17.2 mg PO BID PRN PRN Reason: constipation Sodium Chloride (0.9 % Sodium Chloride Flush 3 Ml Syringe) 3 ml IVFLUSH QSHIFT [facility] Last Admin: 02/12/23 07:21 Dose: 3 ml Documented By: MANJIT Labs 02/12/23 06:14 02/12/23 06:14 Labs: Laboratory Results - last 24 hr 02/11/23 02/11/23 02/11/23 17:48 18:04 18:04 MCV 89.2 MCH 26.0 L MCHC 29.2 L RDW 15.0 Plt Count 376 MPV 9.7 Immature Gran % (Auto) 0.6 H Neut % (Auto) 80.1 H Lymph % (Auto) 12.5 L [place] % (Auto) 5.9 Eos % (Auto) 0.8 Baso % (Auto) 0.1 Lymph # (Auto) 1.1 L [place] # (Auto) 0.5 Eos # (Auto) 0.1 Baso # (Auto) 0.0 Abs Immat Gran (auto) 0.05 H Absolute Neuts (auto) 7.3 Absolute Nucleated RBC 0.000 Nucleated RBC % (auto) 0.0 Smear Tech's Comments PT 13.1 INR 1.1 VBG pH VBG pCO2 VBG pO2 VBG HCO3 VBG O2 Saturation VBG Base Excess Anion Gap 16 Estim Creat Clear Calc 107.5 Estimated GFR > 60 POC Glucose Random Glucose 196 H Lactic Acid Calcium 9.3 Magnesium 1.1 L* Total Bilirubin 0.4 Direct Bilirubin 0.2 AST 11 ALT 16 Alkaline Phosphatase 86 Lactate Dehydrogenase 223 H C-Reactive Protein 7.09 H B-Natriuretic Peptide Total Protein 7.1 Albumin 4.1 TSH COVID-19 (MICHEL) COVID-[employer] 02/11/23 02/11/23 02/11/23 18:04 18:04 18:04 MCV MCH MCHC RDW Plt Count MPV Immature Gran % (Auto) Neut % (Auto) Lymph % (Auto) [place] % (Auto) Eos % (Auto) Baso % (Auto) Lymph # (Auto) [place] # (Auto) Eos # (Auto) Baso # (Auto) Abs Immat Gran (auto) Absolute Neuts (auto) Absolute Nucleated RBC Nucleated RBC % (auto) Smear Tech's Comments PT INR VBG pH VBG pCO2 VBG pO2 VBG HCO3 VBG O2 Saturation VBG Base Excess Anion Gap Estim Creat Clear Calc Estimated GFR POC Glucose Random Glucose Lactic Acid 2.1 H* Calcium Magnesium Total Bilirubin Direct Bilirubin AST ALT Alkaline Phosphatase Lactate Dehydrogenase C-Reactive Protein B-Natriuretic Peptide 225 H Total Protein Albumin TSH COVID-19 (MICHEL) Positive A [facility] See Note 02/11/23 02/11/23 02/11/23 18:04 18:09 21:08 MCV MCH MCHC RDW Plt Count MPV Immature Gran % (Auto) Neut % (Auto) Lymph % (Auto) [place] % (Auto) Eos % (Auto) Baso % (Auto) Lymph # (Auto) [place] # (Auto) Eos # (Auto) Baso # (Auto) Abs Immat Gran (auto) Absolute Neuts (auto) Absolute Nucleated RBC Nucleated RBC % (auto) Smear Tech's Comments PT INR VBG pH 7.51 H VBG pCO2 62 VBG pO2 76 VBG HCO3 50 H VBG O2 Saturation 97.0 VBG Base Excess 24.0 Anion Gap Estim Creat Clear Calc Estimated GFR POC Glucose Random Glucose Lactic Acid 0.9 Calcium Magnesium Total Bilirubin Direct Bilirubin AST ALT Alkaline Phosphatase Lactate Dehydrogenase C-Reactive Protein B-Natriuretic Peptide Total Protein Albumin TSH 1.82 COVID-19 (MICHEL) COVID-19 [facility] 02/11/23 02/12/23 02/12/23 21:51 06:14 06:14 MCV 89.6 MCH 26.6 L MCHC 29.7 L RDW 15.1 Plt Count 384 MPV 9.5 Immature Gran % (Auto) 0.8 H Neut % (Auto) 90.7 H Lymph % (Auto) 7.3 L [place] % (Auto) 1.1 L Eos % (Auto) 0.0 Baso % (Auto) 0.1 Lymph # (Auto) 0.6 L [place] # (Auto) 0.1 Eos # (Auto) 0.0 Baso # (Auto) 0.0 Abs Immat Gran (auto) 0.07 H Absolute Neuts (auto) 7.6 Absolute Nucleated RBC 0.000 Nucleated RBC % (auto) 0.0 Smear Tech's Comments VERIFIED PT INR VBG pH VBG pCO2 VBG pO2 VBG HCO3 VBG O2 Saturation VBG Base Excess Anion Gap 17 Estim Creat Clear Calc 103.5 Estimated GFR > 60 POC Glucose 195 H Random Glucose 252 H Lactic Acid Calcium 9.1 Magnesium 1.9 Total Bilirubin Direct Bilirubin AST ALT Alkaline Phosphatase Lactate Dehydrogenase C-Reactive Protein B-Natriuretic Peptide Total Protein Albumin TSH COVID-19 (MICHEL) COVID-19 [facility] 02/12/23 02/12/23 06:49 11:44 MCV MCH MCHC RDW Plt Count MPV Immature Gran % (Auto) Neut % (Auto) Lymph % (Auto) [place] % (Auto) Eos % (Auto) Baso % (Auto) Lymph # (Auto) [place] # (Auto) Eos # (Auto) Baso # (Auto) Abs Immat Gran (auto) Absolute Neuts (auto) Absolute Nucleated RBC Nucleated RBC % (auto) Smear Tech's Comments PT INR VBG pH VBG pCO2 VBG pO2 VBG HCO3 VBG O2 Saturation VBG Base Excess Anion Gap Estim Creat Clear Calc Estimated GFR POC Glucose 241 H 308 H Random Glucose Lactic Acid Calcium Magnesium Total Bilirubin Direct Bilirubin AST ALT Alkaline Phosphatase Lactate Dehydrogenase C-Reactive Protein B-Natriuretic Peptide Total Protein Albumin TSH COVID-19 (MICHEL) COVID-19 Clin Com Assessment and Plan (1) Atrial fibrillation, new onset: Status: Acute Plan 62-year-old female with history of hypertension, asthma/COPD overlap, chronic hypoxemic respiratory failure on 2 L supplemental O2 at baseline, obstructive sleep apnea, heart failure with preserved ejection fraction, history of CVA, and non dependent type 2 diabetes admitted for new onset atrial fibrillation and CHF exacerbation with COVID-19 and acute on chronic hypoxemic respiratory failure. acute on chronic hypoxemic hypercapnic respiratory failure VBG consistent with baseline, CO2 62 likely secondary to CHF exacerbation, COVID-19 uses 2 L supplemental O2 at baseline, continue supplemental O2 to maintain oximetry around 90% new onset atrial fibrillation with RVR likely related to resp status EKG shows atrial fibrillation, rate 144 Cardizem drip per protocol cardiology consult> rec continue cardizem drip and may add digoxin no contraindication to anticoagulation.? Chads Vasc score 6.? Initiate Eliquis 5 mg b.i.d. normal TSH Acute CHF exacerbation BNP 220 IV lasix 40mg daily cardiac diet strict I&O daily weights echo on 01/08 showed normal LV systolic function with EF 65% monitor on telemetry cardiology consult COVID-19 Decadron 6 mg (initiated 02/11) continue supplemental O2 as above symptomatic management droplet/contact precautions Acute hypomagnesemia Mag 1.1, repleted Follow BMP/mag asthma/COPD mild exacerbation the wheezing is more likely related to cardiac etiology DuoNebs q.4h while awake, albuterol p.r.n. Diabetes mellitus type 2 Sliding scale, ADA diet hypertension blood pressure reasonably controlled continue home meds HLD continue statin Obstructive sleep apnea CPAP at bedtime Morbid obesity. BMI 61.5 Discussed importance of weight management as this may be contributing to worsening of other comorbidities DVT prophylaxis-Ana Attending Dr. Lynne full code Continue hospitalization for treatment of atrial fibrillation with rapid ventricular response, acute heart failure and COVID-19 Time Spent With Patient Time: Total time managing care of this patient today ____ minutes. Quality Stroke Does the patient have a stroke diagnosis?: No VTE Prior VTE?: No VTE Risk Level:: Medical - moderate - high VTE Device Contraindication: Treatment Not Indicated VTE Drug Contraindication: N/A - Med Ordered
--- NOTE | 2023-02-12 12:07 | PC.NURSE ---
attempted to give report to [facility] - RN was not available at this time - states that they will call back shortly for report.
[2023-02-12] MEDS: Digoxin 0.125 MG TABLET PO (12:44)
--- NOTE | 2023-02-12 12:45 | PC.NURSE ---
medication administered per provider order. awaiting transport so pt can go upstairs.
--- NOTE | 2023-02-12 13:05 | PC.NURSE ---
belongings list completed. transport notified that pt was ready to be transported w/ oxygen, hall monitor, and cardizem drip. transport did not wait for this RN to be transferred upstairs while on drip and left without me. ED charge nurse aware.
[2023-02-12 16:32] LABS: ABG Base Excess 16.3 mmol/L; ABG HCO3 49 mmol/L (22-26); ABG pCO2 117 mmHg (32-45); ABG pH 7.23 (7.35-7.45); ABG pO2 57 mmHg (83-108)
--- NOTE | 2023-02-12 16:50 | P.HPCC_ITS ---
History of Present Illness Date of Service: 02/12/23 Attending physician on admission: Rylee Culp Chief Complaint: Acute/Chronic Mixed Respiratory Failure Patient 62 Y F with morbid obesity, c/b obesity hypoventilation syndrome, obstructive sleep apnea, on chronic 2L NC AM, AVAPS PM, as well as COPD, CHF, p/t ED on 02/11 w/ dyspnea x3 days, found to be COVID positive; of note, patient is primary historian, reports patient had encounter with sick contact; otherwise, patient denies overt infectious symptoms, angina, lower extremity edema, erythema, pain; patient initially admitted medicine, though hospital course c/b worsening acute/chronic respiratory failure, necessitating non-invasive positive pressure ventilation, as well as new-onset atrial fibrillation Review of Systems Review of Systems: of note, patient unable to participate meaningfully in history taking; patient primary historian Yes Unobtainable due to mental condition and Unobtainable due to mental status Constitutional: Constitutional: Reports as per HPI Eyes: Eyes: Reports no additional eye complaints ENT: Reports system reviewed and no additional complaints, except as documented Cardiovascular: Cardiovascular: Reports as per HPI Respiratory: Respiratory: Reports as per HPI Gastrointestinal: Gastrointestinal: Reports no additional gastrointestinal complaints Genitourinary: Genitourinary: Reports no additional female genitourinary complaints Musculoskeletal: Musculoskeletal: Reports no additional musculoskeletal complaints Neurologic: Reports system reviewed and no additional complaints, except as documented Psychiatric: Psychiatric: Reports no additional psychiatric complaints [facility], LAT[facility] Past Medical History Medical History Cerebrovascular accident involving posterior circulation Cervical cancer screening Cocaine use disorder, mild, in sustained remission Congestive heart failure COPD (chronic obstructive pulmonary disease) COPD (chronic obstructive pulmonary disease) Diabetes mellitus Diastolic CHF Essential hypertension Foot pain Mixed incontinence urge and stress Moderate asthma Morbid obesity Obesity Obesity hypoventilation syndrome Obstructive sleep apnea TAURUS (obstructive sleep apnea) Oxygen dependent Redness of left eye Screening for breast cancer Screening for colon cancer Family History Family History Father Medical history unknown Mother Diabetes Hypertension Father Medical history unknown Mother Hypertension Diabetes Other Substance use disorder Surgical History Surgical History History of cholecystectomy History of cholecystectomy History of open reduction and internal fixation (ORIF) procedure History of open reduction and internal fixation (ORIF) procedure History of tubal ligation History of tubal ligation Social History Social History Household Members: Spouse Housing: Apartment Do you presently have visiting nurse or other home services: Yes Alcohol intake: former Patient Tobacco Use Status: Former Tobacco user Tobacco use type: Cigarette Cigarette Packs Per Day: 0.75 Cigarettes Per Day: 15.0 Years Smoked: 31 years e-Cigarette/Vaping Use: Never Used Second Hand Smoke Exposure: Yes Substance Use Type: Crack/Cocaine Advance Directives Date on File: 08/28/21 service: No Current occupational status: disabled Cognitive needs: Yes (walker/wheelchair/cane) Hearing needs: No Vision needs: Yes Meds Allergies Allergy/AdvReac Type Severity Reaction Status Date / Time No Known Allergies Allergy Verified 12/19/22 11:43 Active Medications: Current Medications Acetaminophen (Acetaminophen 325 Mg Tablet) 650 mg PO Q6H PRN PRN Reason: Pain, Mild (Pain Scale 1-3) Last Admin: 02/12/23 04:37 Dose: 650 mg Albuterol Sulfate (Albuterol Sulfate 90 Mcg 8 Gm Inhaler) 2 puff INHALE RQ4H PRN PRN Reason: sob/wheezing Albuterol/Ipratropium (Albuterol/Iprat 2.5/0.5mg 3 Ml Ampul.Neb) 3 ml INHALE RQ4H WHILE AWAKE [facility] Last Admin: 02/12/23 11:18 Dose: Not Given Amlodipine Besylate (Amlodipine Besylate 10 Mg Tablet) 10 mg PO DAILY [facility]; Protocol Last Admin: 02/12/23 08:27 Dose: 10 mg Apixaban (Apixaban 5 Mg Tablet) 5 mg PO BID [facility] Last Admin: 02/12/23 08:27 Dose: 5 mg Atorvastatin Calcium (Atorvastatin Calcium 80 Mg Tablet) 80 mg PO BEDTIME [facility] Last Admin: 02/11/23 22:17 Dose: 80 mg Levalbuterol HCl 5 mg/ (Ipratropium [place] 0.5 mg) 0 mg INHALE Q4H [facility] Dexamethasone (Dexamethasone 6 Mg Tablet) 6 mg PO DAILY [facility] Last Admin: 02/12/23 08:26 Dose: 6 mg Dextrose (Dextrose 50 % 25 Gm/50 Ml Syringe) 25 gm IVPUSH Q15M PRN; Protocol PRN Reason: per Hypoglycemia Standing Ord. Digoxin (Digoxin 0.125 Mg Tablet) 0.125 mg PO Q6H [facility] Stop: 02/12/23 18:16 Last Admin: 02/12/23 12:44 Dose: 0.125 mg Docusate Sodium (Docusate Sodium 100 Mg Capsule) 100 mg PO DAILY PRN PRN Reason: Constipation Furosemide (Furosemide 40 Mg/4 Ml Vial) 40 mg IVPUSH DAILY [facility]; Protocol Last Admin: 02/12/23 08:28 Dose: 40 mg Glucose (Glucose Gel 15 Gm Gel..Gram.) 15 gm PO Q15M PRN; Protocol PRN Reason: per Hypoglycemia Standing Ord. Diltiazem HCl 125 mg/ Sodium (Chloride) 125 mls @ 0 mls/hr IVCONT .Q0M [facility]; P rotocol Last Admin: 02/12/23 16:18 Dose: 15 mg/hr, 15 mls/hr Insulin Glargine (Insulin Glargine,Hum.Rec.Anlog 100 Unit/Ml 10 Ml Vial) 10 unit SUBCUT DAILY [facility] Last Admin: 02/12/23 08:27 Dose: 10 unit Insulin Human Lispro (Insulin Lispro 100 Unit/Ml 3 Ml Vial) 0 unit SUBCUT QIDACHS [facility]; Protocol Last Admin: 02/12/23 11:51 Dose: 8 unit Ipratropium [place] (Ipratropium [place] 0.5 Mg/2.5 Ml Solution) 0.5 mg INHALE RQ4H WHILE AWAKE [facility] Lidocaine (Lidocaine 4 % Patch Adh..Patch) 1 patch TRANSDERMA DAILY [facility]; Protocol Last Admin: 02/12/23 08:28 Dose: 1 patch Metoprolol Tartrate (Metoprolol Tartrate 25 Mg Tablet) 25 mg PO QID [facility]; Protocol Ondansetron HCl (Ondansetron Hcl 4 Mg/2 Ml Vial) 4 mg IVPUSH Q8H PRN PRN Reason: Nausea and Vomiting Senna (Sennosides 8.6 Mg Tablet) 17.2 mg PO BID PRN PRN Reason: constipation Sodium Chloride (0.9 % Sodium Chloride Flush 3 Ml Syringe) 3 ml IVFLUSH QSHIFT [facility] Last Admin: 02/12/23 07:21 Dose: 3 ml Home Medications Medication Instructions Recorded Confirmed Last Taken Type lidocaine 5 % topical patch 1 patch topical DAILY PRN Pain 01/07/23 02/11/23 Unknown History sennosides 8.6 mg tablet (Senna 17.2 mg PO BID PRN constipation 01/07/23 02/11/23 Unknown History Lax) dulaglutide 0.75 mg/0.5 mL 0.75 mg subcut TU@1430 02/11/23 02/11/23 Unknown History subcutaneous pen injector (Trulicity) Physical Exam Vital Signs: Vital Signs: Last Vital Signs Temp 97.5 F 02/12/23 15:47 Pulse 124 H 02/12/23 15:47 Resp 20 02/12/23 15:47 BP 140/80 H 02/12/23 15:47 Pulse Ox 86 L 02/12/23 15:47 O2 Del Method Oxymask 02/12/23 15:47 O2 Flow Rate 11 02/12/23 15:47 BMI result Body Mass Index 61.5 Const: General: ill appearing and lethargic Nutritional Appearance: obese morbidly obese Orientation/consciousness: lethargic Limitations: language barrier and physical limitations HEENT: Head: Yes normal to inspection, Yes normocephalic and Yes atraumatic Eyes: General: appearance normal, both eyes and all related structures Pupils: Equal, round and reactive pupils present Neck: Neck: Yes normal visual inspection Chest: Chest palpation & inspection: normal inspection of the chest Resp: Other: decreased breath sounds throughout; no overt rales, rhonchi, nor wheezing, though may be limited to body habitus Cardio: Rate: tachycardic Rhythm: abnormal rhythm (atrial fibrillation) GI: Inspection: Yes normal to inspection Skin: General skin exam: no rashes or lesions noted Neuro: Other: lethargic, though arousable; answers simple yes-no questions Cranial nerves: Yes Equal, round and reactive pupils present Extrem: Other: non-pitting edema throughout Psych: Appearance: grossly normal Results Labs 02/12/23 06:14 02/12/23 06:14 Labs: Laboratory Results - last 24 hr 02/11/23 02/11/23 02/11/23 17:48 18:04 18:04 MCV 89.2 MCH 26.0 L MCHC 29.2 L RDW 15.0 Plt Count 376 MPV 9.7 Immature Gran % (Auto) 0.6 H Neut % (Auto) 80.1 H Lymph % (Auto) 12.5 L [place] % (Auto) 5.9 Eos % (Auto) 0.8 Baso % (Auto) 0.1 Lymph # (Auto) 1.1 L [place] # (Auto) 0.5 Eos # (Auto) 0.1 Baso # (Auto) 0.0 Abs Immat Gran (auto) 0.05 H Absolute Neuts (auto) 7.3 Absolute Nucleated RBC 0.000 Nucleated RBC % (auto) 0.0 Smear Tech's Comments PT 13.1 INR 1.1 O2 Saturation ABG pH at Pt Temp ABG pCO2 at Pt Temp ABG pO2 at Pt Temp ABG HCO3 ABG Base Excess (Actual) VBG pH VBG pCO2 VBG pO2 VBG HCO3 VBG O2 Saturation VBG Base Excess Anion Gap 16 Estim Creat Clear Calc 107.5 Estimated GFR > 60 POC Glucose Random Glucose 196 H Lactic Acid Calcium 9.3 Magnesium 1.1 L* Total Bilirubin 0.4 Direct Bilirubin 0.2 AST 11 ALT 16 Alkaline Phosphatase 86 Lactate Dehydrogenase 223 H C-Reactive Protein 7.09 H B-Natriuretic Peptide Total Protein 7.1 Albumin 4.1 TSH COVID-19 (MICHEL) COVID-[employer] 02/11/23 02/11/23 02/11/23 18:04 18:04 18:04 MCV MCH MCHC RDW Plt Count MPV Immature Gran % (Auto) Neut % (Auto) Lymph % (Auto) [place] % (Auto) Eos % (Auto) Baso % (Auto) Lymph # (Auto) [place] # (Auto) Eos # (Auto) Baso # (Auto) Abs Immat Gran (auto) Absolute Neuts (auto) Absolute Nucleated RBC Nucleated RBC % (auto) Smear Tech's Comments PT INR O2 Saturation ABG pH at Pt Temp ABG pCO2 at Pt Temp ABG pO2 at Pt Temp ABG HCO3 ABG Base Excess (Actual) VBG pH VBG pCO2 VBG pO2 VBG HCO3 VBG O2 Saturation VBG Base Excess Anion Gap Estim Creat Clear Calc Estimated GFR POC Glucose Random Glucose Lactic Acid 2.1 H* Calcium Magnesium Total Bilirubin Direct Bilirubin AST ALT Alkaline Phosphatase Lactate Dehydrogenase C-Reactive Protein B-Natriuretic Peptide 225 H Total Protein Albumin TSH COVID-19 (MICHEL) Positive A COVID-19 [employer] Com See Note 02/11/23 02/11/2302/11/23 18:04 18:09 21:08 MCV MCH MCHC RDW Plt Count MPV Immature Gran % (Auto) Neut % (Auto) Lymph % (Auto) [place] % (Auto) Eos % (Auto) Baso % (Auto) Lymph # (Auto) [place] # (Auto) Eos # (Auto) Baso # (Auto) Abs Immat Gran (auto) Absolute Neuts (auto) Absolute Nucleated RBC Nucleated RBC % (auto) Smear Tech's Comments PT INR O2 Saturation ABG pH at Pt Temp ABG pCO2 at Pt Temp ABG pO2 at Pt Temp ABG HCO3 ABG Base Excess (Actual) VBG pH 7.51 H VBG pCO2 62 VBG pO2 76 VBG HCO3 50 H VBG O2 Saturation 97.0 VBG Base Excess 24.0 Anion Gap Estim Creat Clear Calc Estimated GFR POC Glucose Random Glucose Lactic Acid 0.9 Calcium Magnesium Total Bilirubin Direct Bilirubin AST ALT Alkaline Phosphatase Lactate Dehydrogenase C-Reactive Protein B-Natriuretic Peptide Total Protein Albumin TSH 1.82 COVID-19 (MICHEL) COVID-19 Clin Com 02/11/23 02/12/23 02/12/23 21:51 06:14 06:14 MCV 89.6 MCH 26.6 L MCHC 29.7 L RDW 15.1 Plt Count 384 MPV 9.5 Immature Gran % (Auto) 0.8 H Neut % (Auto) 90.7 H Lymph % (Auto) 7.3 L [place] % (Auto) 1.1 L Eos % (Auto) 0.0 Baso % (Auto) 0.1 Lymph # (Auto) 0.6 L [place] # (Auto) 0.1 Eos # (Auto) 0.0 Baso # (Auto) 0.0 Abs Immat Gran (auto) 0.07 H Absolute Neuts (auto) 7.6 Absolute Nucleated RBC 0.000 Nucleated RBC % (auto) 0.0 Smear Tech's Comments VERIFIED PT INR O2 Saturation ABG pH at Pt Temp ABG pCO2 at Pt Temp ABG pO2 at Pt Temp ABG HCO3 ABG Base Excess (Actual) VBG pH VBG pCO2 VBG pO2 VBG HCO3 VBG O2 Saturation VBG Base Excess Anion Gap 17 Estim Creat Clear Calc 103.5 Estimated GFR > 60 POC Glucose 195 H Random Glucose 252 H Lactic Acid Calcium 9.1 Magnesium 1.9 Total Bilirubin Direct Bilirubin AST ALT Alkaline Phosphatase Lactate Dehydrogenase C-Reactive Protein B-Natriuretic Peptide Total Protein Albumin TSH COVID-19 (MICHEL) COVID-19 Clin Com 02/12/23 02/12/23 02/12/23 06:49 11:44 16:27 MCV MCH MCHC RDW Plt Count MPV Immature Gran % (Auto) Neut % (Auto) Lymph % (Auto) [place] % (Auto) Eos % (Auto) Baso % (Auto) Lymph # (Auto) [place] # (Auto) Eos # (Auto) Baso # (Auto) Abs Immat Gran (auto) Absolute Neuts (auto) Absolute Nucleated RBC Nucleated RBC % (auto) Smear Tech's Comments PT INR O2 Saturation 78.0 ABG pH at Pt Temp 7.23 L ABG pCO2 at Pt Temp 117 H* ABG pO2 at Pt Temp 57 L ABG HCO3 49 H ABG Base Excess (Actual) 16.3 VBG pH VBG pCO2 VBG pO2 VBG HCO3 VBG O2 Saturation VBG Base Excess Anion Gap Estim Creat Clear Calc Estimated GFR POC Glucose 241 H 308 H Random Glucose Lactic Acid Calcium Magnesium Total Bilirubin Direct Bilirubin AST ALT Alkaline Phosphatase Lactate Dehydrogenase C-Reactive Protein B-Natriuretic Peptide Total Protein Albumin TSH COVID-19 (MICHEL) COVID-19 Clin Com ABG Attestation: I personally reviewed and interpreted this ABG as follows: Interpretation: acute on chronic respiratory acidosis with metabolic alkalosis Imaging Radiologist's Impressions: Impressions Chest X-Ray 02/11/23 18:26 IMPRESSION: 1. Cardiomegaly. 2. Moderate prominence of the central pulmonary vessels and increased lung markings similar prior study of January 07, 2023. Findings consistent with congestive heart failure. 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 use: without exterminator helper termite use Diabetes mellitus complication status: without complication Qualified Code(s): E11.9 - Type 2 diabetes mellitus without complications Status: Acute (3) Acute on chronic respiratory failure with hypoxemia: Status: Acute (4) Hypercapnia: Status: Acute (5) COPD exacerbation: Status: Acute (6) CHF exacerbation: Status: Acute (7) Atrial fibrillation, new onset: Status: Acute (8) Hypomagnesemia: Status: Acute Plan 62 Y F with morbid obesity, c/b p/t ED on 02/11 w/ dyspnea x3 days, found to be COVID positive; hospital course c/b worsening acute/chronic respiratory failure, necessitating non-invasive positive pressure ventilation, new-onset atrial fibrillation N: encephalopathic, likely d/t hypercarbia, improving on AVAPS; continue to monitor very closely CV: new-onset atrial fibrillation, though maintaining blood pressure; cardiology consulted, recommend diltiazem gtt, metoprolol tartrate, digoxin PO; to maintain diltiazem gtt, hold PO medications until improvement of clinical status; CHF exacerbation, furosemide 40 mg IV BID R: acute/chronic mixed respiratory failure, likely multifactorial, d/t CHF, COPD, and COVID; to continue diuresis, duonebs, dexamethasone, and remdesivir; AVAPS, repeat ABG and assessment GI: NPO while on AVAPS : function: at baseline; electrolytes: no appreciable derangements; volume: I/O goal net negative; furosemide 40 mg IV BID ID: of note, unlikely patient has sepsis; to follow-up lactate, though no appreciable fever, hypotension; moreover, concern for CHF exacerbation, thereby judicious with IVF administration; H: new-onset atrial fibrillation, started on epixaban this admission, but will hold while on AVAPS E: diabetes, c/b hyperglycemia; insulin sliding scale Time Spent With Patient Time: Total time managing care of this patient today 120 minutes.
[2023-02-12] MEDS: levalbuterol HCL 5 MG, Ipratropium Bromide 0.5 MG INHALE ×3 (16:58→22:54)
[2023-02-12 18:02] LABS: Glucose, Whole Blood 330 mg/dL (60-115)
[2023-02-12 18:09] LABS: ABG HCO3 48 mmol/L (22-26); ABG pCO2 107 mmHg (32-45); ABG pH 7.25 (7.35-7.45); ABG pO2 76 mmHg (83-108)
[2023-02-12] MEDS: Remdesivir 200 MG in 0.9 % Sodium Chloride 210 ML 105 MG IV (18:35)
--- NOTE | 2023-02-12 19:19 | PC.NURSE ---
Assumed care at 18:20. Patient alert and oriented x4. at bedside. Patient on Bipap AVaps setting, Epap 8, TV 400, FiO2 60%. Variable pressure, mask adjusted to minimize leak. Patient reports feeling better. Given remdesiver and 40 mg lasix as per emar, patient with purewick with no output, confirmed flow and bladderscanned for 0. Held all PO meds per MD. SQ insulin 8 units per sliding scale for POC of 330 as per MD. REYES. 20G IV in left shoulder and 22 G IV in left wrist patent. No apparent edema in BLE.
[2023-02-12 19:21] LABS: Lactic Acid 0.7 mmol/L (0.5-2.0)
[2023-02-12] MEDS: Digoxin 0.5 MG/2 ML AMPUL IVPUSH (20:25)
[2023-02-12 20:59] LABS: Glucose, Whole Blood 343 mg/dL (60-115)
[2023-02-12 21:14] LABS: Alanine Aminotransferase 33 U/L (0-31); Albumin Level 4.2 g/dL (3.5-5.0); Alkaline Phosphatase 113 U/L (39-117); Anion Gap 15 (12-20); Aspartate Amino Transferase 22 U/L (5-31); Bilirubin Total 0.4 mg/dL (0.0-1.0); Blood Urea Nitrogen 24 mg/dL (9-16); Carbon Dioxide 41 mmol/L (22-29); Chloride 88 mmol/L (96-108); Creatinine Clr Calc Pharmacy 76.5; Estimated Glomerular Filt Rate 50; Glucose Random 371 mg/dL (60-115); Phosphorus 5.5 mg/dL (2.7-4.5); Potassium 4.9 mmol/L (3.3-5.1); Sodium 139 mmol/L (135-145); Total Protein 7.4 g/dL (6.5-8.0)
[2023-02-12] MEDS: dilTIAZem HCL 50 MG/10 ML VIAL 10 MG IVPUSH (21:21)
[2023-02-12] MEDS: Ketorolac Tromethamine 15 MG/ML VIAL IVPUSH (21:21)
--- NOTE | 2023-02-12 22:45 | W.PM.IDCN ---
History of Present Illness Data of Consult Service Date: 02/12/23 Requesting physician: Joselyn Malone Primary Care Provider: Dolores Dubois MD HPI Reason for consult: COVID She presents with shortness of breath for a day. She has hypoxia to 90s on arrival and was placed on oxymask. She has no fever or chills. She is going to ICU as still hypoxic. Review of Systems Review of Systems: Yes all other systems are reviewed and are negative PMFSH Past Medical History Medical History Cerebrovascular accident involving posterior circulation Cervical cancer screening Cocaine use disorder, mild, in sustained remission Congestive heart failure COPD (chronic obstructive pulmonary disease) COPD (chronic obstructive pulmonary disease) Diabetes mellitus Diastolic CHF Essential hypertension Foot pain Mixed incontinence urge and stress Moderate asthma Morbid obesity Obesity Obesity hypoventilation syndrome Obstructive sleep apnea TAURUS (obstructive sleep apnea) Oxygen dependent Redness of left eye Screening for breast cancer Screening for colon cancer Family History Family History Father Medical history unknown Mother Diabetes Hypertension Father Medical history unknown Mother Hypertension Diabetes Other Substance use disorder Family history: reviewed and not pertinent Surgical History Surgical History History of cholecystectomy History of cholecystectomy History of open reduction and internal fixation (ORIF) procedure History of open reduction and internal fixation (ORIF) procedure History of tubal ligation History of tubal ligation Social History Social History Household Members: Spouse Housing: Apartment Do you presently have visiting nurse or other home services: Yes Alcohol intake: former Patient Tobacco Use Status: Former Tobacco user Tobacco use type: Cigarette Cigarette Packs Per Day: 0.75 Cigarettes Per Day: 15.0 Years Smoked: 31 years e-Cigarette/Vaping Use: Never Used Second Hand Smoke Exposure: Yes Substance Use Type: Crack/Cocaine Advance Directives Date on File: 08/28/21 service: No Current occupational status: disabled Cognitive needs: Yes (walker/wheelchair/cane) Hearing needs: No Vision needs: Yes Meds Allergies Allergy/AdvReac Type Severity Reaction Status Date / Time No Known Allergies Allergy Verified 12/19/22 11:43 Active Medications: Current Medications Acetaminophen (Acetaminophen 325 Mg Tablet) 650 mg PO Q6H PRN PRN Reason: Pain, Mild (Pain Scale 1-3) Last Admin: 02/12/23 04:37 Dose: 650 mg Albuterol Sulfate (Albuterol Sulfate 90 Mcg 8 Gm Inhaler) 2 puff INHALE RQ4H PRN PRN Reason: sob/wheezing Albuterol/Ipratropium (Albuterol/Iprat 2.5/0.5mg 3 Ml Ampul.Neb) 3 ml INHALE RQ4H WHILE AWAKE [facility] Last Admin: 02/12/23 19:11 Dose: Not Given Amlodipine Besylate (Amlodipine Besylate 10 Mg Tablet) 10 mg PO DAILY [facility]; Protocol Last Admin: 02/12/23 08:27 Dose: 10 mg Apixaban (Apixaban 5 Mg Tablet) 5 mg PO BID [facility] Last Admin: 02/12/23 21:01 Dose: Not Given Atorvastatin Calcium (Atorvastatin Calcium 80 Mg Tablet) 80 mg PO BEDTIME [facility] Last Admin: 02/12/23 21:01 Dose: Not Given Levalbuterol HCl 5 mg/ (Ipratropium [place] 0.5 mg) 0 mg INHALE Q4H [facility] Last Admin: 02/12/23 19:18 Dose: 5.5 dose Dexamethasone (Dexamethasone 6 Mg Tablet) 6 mg PO DAILY [facility] Last Admin: 02/12/23 08:26 Dose: 6 mg Dextrose (Dextrose 50 % 25 Gm/50 Ml Syringe) 25 gm IVPUSH Q15M PRN; Protocol PRN Reason: per Hypoglycemia Standing Ord. Docusate Sodium (Docusate Sodium 100 Mg Capsule) 100 mg PO DAILY PRN PRN Reason: Constipation Glucose (Glucose Gel 15 Gm Gel..Gram.) 15 gm PO Q15M PRN; Protocol PRN Reason: per Hypoglycemia Standing Ord. Diltiazem HCl 125 mg/ Sodium (Chloride) 125 mls @ 0 mls/hr IVCONT .Q0M [facility]; Protocol Last Admin: 02/12/23 16:18 Dose: 15 mg/hr, 15 mls/hr Remdesivir 100 mg/ Sodium (Chloride) 230 mls @ 115 mls/hr IV Q24H [facility] Stop: 02/16/23 18:59 Insulin Glargine (Insulin Glargine,Hum.Rec.Anlog 100 Unit/Ml 10 Ml Vial) 10 unit SUBCUT DAILY [facility] Last Admin: 02/12/23 08:27 Dose: 10 unit Insulin Human Lispro (Insulin Lispro 100 Unit/Ml 3 Ml Vial) 0 unit SUBCUT QIDACHS [facility]; Protocol Last Admin: 02/12/23 21:45 Dose: 8 unit Ipratropium [place] (Ipratropium [place] 0.5 Mg/2.5 Ml Solution) 0.5 mg INHALE RQ4H WHILE AWAKE [facility] Last Admin: 02/12/23 19:12 Dose: Not Given Lidocaine (Lidocaine 4 % Patch Adh..Patch) 1 patch TRANSDERMA DAILY [facility]; Protocol Last Admin: 02/12/23 08:28 Dose: 1 patch Metoprolol Tartrate (Metoprolol Tartrate 25 Mg Tablet) 25 mg PO QID [facility]; Protocol Last Admin: 02/12/23 21:02 Dose: Not Given Ondansetron HCl (Ondansetron Hcl 4 Mg/2 Ml Vial) 4 mg IVPUSH Q8H PRN PRN Reason: Nausea and Vomiting Senna (Sennosides 8.6 Mg Tablet) 17.2 mg PO BID PRN PRN Reason: constipation Sodium Chloride (0.9 % Sodium Chloride Flush 3 Ml Syringe) 3 ml IVFLUSH QSHIFT [facility] Last Admin: 02/12/23 17:11 Dose: Not Given Home Medications Medication Instructions Recorded Confirmed Last Taken Type lidocaine 5 % topical patch 1 patch topical DAILY PRN Pain 01/07/23 02/11/23 Unknown History sennosides 8.6 mg tablet (Senna 17.2 mg PO BID PRN constipation 01/07/23 02/11/23 Unknown History Lax) dulaglutide 0.75 mg/0.5 mL 0.75 mg subcut TU@1430 02/11/23 02/11/23 Unknown History subcutaneous pen injector (Trulicity) Physical Exam Vital Signs: Vital Signs: Last Vital Signs Temp 97.6 F 02/12/23 19:00 Pulse 101 H 02/12/23 22:00 Resp 14 02/12/23 22:00 BP 126/74 02/12/23 22:00 Pulse Ox 93 02/12/23 22:00 O2 Del Method BiPAP 02/12/23 22:00 O2 Flow Rate 11 02/12/23 15:47 FiO2 60 02/12/23 22:00 BMI result Body Mass Index 61.5 Const: General: cooperative HEENT: Head: Yes normal to inspection Face and sinus: Yes normal facial exam Mouth: Normal oral and palatal mucosa present Teeth and gingiva: dentition normal Eyes: General: appearance normal, both eyes and all related structures Pupils: Equal, round and reactive pupils present Resp: Effort & Inspection: decreased respiratory effort Cardio: Rate: regular rate Rhythm: regular rhythm GI: Palpation (GI): Soft to palpation and nontender : General: Yes no CVA tenderness Back/Spine/Pelvis: Back: no CVA tenderness Skin: General skin exam: no rashes or lesions noted Neuro: General: moves all extremities Cranial nerves: Yes Equal, round and reactive pupils present Extrem: General: Yes normal to inspection Psych: Appearance: grossly normal Results Labs 02/12/23 06:14 02/12/23 20:45 Labs: Short CBC 02/12/23 Range/Units 06:14 WBC 8.4 (4.8-10.8) X10*3/uL Hgb 9.7 L (12.0-16.0) g/dl Hct 32.7 L (37.0-47.0) % Plt Count 384 (160-400) X10*3/uL BMP 02/12/23 02/12/23 06:14 20:45 Sodium 141 139 Potassium 4.6 4.9 Chloride 91 L 88 L Carbon Dioxide 38 H 41 H* BUN 16 24 H Creatinine 0.82 1.11 Calcium 9.1 9.0 Liver Function 02/12/23 Range/Units 20:45 Total Bilirubin 0.4 (0.0-1.0) mg/dL AST 22 (5-31) U/L ALT 33 H (0-31) U/L Alkaline Phosphatase 113 (39-117) U/L Albumin 4.2 (3.5-5.0) g/dL Microbiology Microbiology Results: Microbiology 02/11/23 18:04 Blood - Venous Blood Culture - Preliminary No growth after 24 hours. 02/11/23 18:04 Blood - Venous Blood Culture - Preliminary No growth after 24 hours. Assessment and Plan (1) COVID-19: Status: Acute She has probable short duration of COVID about 3 days She has hypoxia There is no signs of bacterial infection need to evaluate for congestive heart failure (2) Acute on chronic respiratory failure with hypoxemia: Status: Acute Plan Would give steroids any dose, standard 6 mg daily. Would also consider Remdesivir until no longer hypoxic,likely five days. If significant hypoxia worsening then consider baricitinib. Time Spent With Patient Time: Total time managing care of this patient today ____ minutes.
[2023-02-13] VITALS (34 sets, daily range): BP systolic 118–165; BP diastolic 71–107; PULSE 69–106; RESP 9–23; TEMP 36.1–37.4; O2SAT 83–99; BMI 66.5
[2023-02-13 04:58] LABS: ABG Refer to POC result
[2023-02-13 04:58] LABS: ABG Refer to POC result
[2023-02-13 05:31] LABS: VBG Base Excess 20.3 mmol/L; VBG HCO3 49 mmol/L (22-26); VBG pCO2 85 mmHg; VBG pH 7.37 (7.32-7.43); VBG pO2 67 mmHg
[2023-02-13 05:43] LABS: MANUAL DIFF FLAG NO
[2023-02-13 05:47] LABS: Basophils Percent Auto 0.2 % (0-2); Hematocrit 32.9 % (37.0-47.0); Hemoglobin 9.5 g/dl (12.0-16.0); Imm Gran Pct Auto 1.1 % (0.0-0.4); Lymphocytes Absolute Auto 0.5 X10*3/uL (1.2-4.9); Lymphocytes Percent Auto 5.5 % (20-40); Mean Corpuscular HGB Conc 28.9 g/dl (31.0-35.0); Mean Corpuscular Hemoglobin 26.5 pg (27.0-33.0); Mean Corpuscular Volume 91.6 fL (80.0-98.0); Mean Platelet Volume 9.9 fL (9.4-12.3); Monocytes Absolute Auto 0.7 X10*3/uL (0.1-1.2); Monocytes Percent Auto 7.9 % (2-11); NRBC Pct Auto 0.2 /100WBC (0.0-0.2); Neutrophils Absolute Auto 7.5 x10*3/uL (2.0-8.3); Neutrophils Percent Auto 85.3 % (45-73); Platelet Count 417 X10*3/uL (160-400); Red Blood Count 3.59 X10*6/uL (4.20-5.50); White Blood Count 8.8 X10*3/uL (4.8-10.8)
[2023-02-13 06:07] LABS: Alanine Aminotransferase 32 U/L (0-31); Albumin Level 4.2 g/dL (3.5-5.0); Alkaline Phosphatase 107 U/L (39-117); Anion Gap 13 (12-20); Aspartate Amino Transferase 20 U/L (5-31); Bilirubin Total 0.3 mg/dL (0.0-1.0); Blood Urea Nitrogen 31 mg/dL (9-16); Calcium 9.3 mg/dL (8.4-10.2); Carbon Dioxide 44 mmol/L (22-29); Chloride 89 mmol/L (96-108); Creatinine Clr Calc Pharmacy 73.2; Estimated Glomerular Filt Rate 47; Glucose Random 309 mg/dL (60-115); Potassium 4.8 mmol/L (3.3-5.1); Sodium 141 mmol/L (135-145); Total Protein 7.3 g/dL (6.5-8.0)
[2023-02-13] MEDS: Acetaminophen 325 MG TABLET 650 MG PO (06:44)
[2023-02-13 06:46] LABS: Venous Blood Gas Refer to POC result
[2023-02-13] MEDS: Metoprolol Tartrate 25 MG TABLET PO (07:35)
[2023-02-13] MEDS: amLODIPine Besylate 10 MG TABLET PO (07:35)
[2023-02-13] MEDS: Lidocaine 4 % Patch ADH..PATCH 1 PATCH TRANSDERMA (07:36)
[2023-02-13] MEDS: Apixaban 5 MG TABLET PO ×2 (07:36→19:54)
[2023-02-13] MEDS: dexAMETHasone 6 MG TABLET PO (07:36)
[2023-02-13] MEDS: acetaZOLAMIDE sodium 500 MG VIAL IVPUSH ×2 (07:37→19:54)
[2023-02-13] MEDS: dilTIAZem HCL 125 MG in 0.9 % Sodium Chloride 100 ML 10 MG IVCONT (07:37)
[2023-02-13] MEDS: Insulin Glargine,Hum.rec.anlog 100 UNIT/ML 10 ML VIAL 10 UNIT SUBCUT (07:38)
[2023-02-13] MEDS: Insulin Lispro 100 UNIT/ML 3 ML VIAL SUBCUT ×4 (07:38→20:14)
[2023-02-13 08:08] LABS: Glucose, Whole Blood 262 mg/dL (60-115)
[2023-02-13] MEDS: Albuterol/Iprat 2.5/0.5MG 3 ML AMPUL.NEB INHALE ×4 (08:45→20:27)
--- NOTE | 2023-02-13 09:01 | P.PNCA_ITS ---
Subjective Subjective Date of Service: 02/13/23 Principal diagnosis: Respiratory failure, atrial fibrillation Interval history: Patient was transferred yesterday to ICU for increasing oxygen requirement and respiratory failure. Since then his on Cardizem drip. Her rate is well controlled. Hemodynamically stable. Overnight had a urine output of 400 cc although intake and output chart seems to be inaccurate. Patient's breathing status seems to have improved although with nasal cannula this morning she is in sub 90 oxygen saturation. As per the was at bedside patient is looking better. She is more alert and appears to be in less respiratory distress. Review of Systems Constitutional: Denies chills and Denies fever(s) Eyes: Denies no additional eye complaints Cardiovascular: Denies chest pain, Denies lightheadedness, Denies Loss of Consciousness, Denies palpitations and Reports dyspnea Respiratory: Reports dyspnea Gastrointestinal: Reports no additional gastrointestinal complaints Musculoskeletal: Reports no additional musculoskeletal complaints Reports system reviewed and no additional complaints, except as documented Psychiatric: Reports no additional psychiatric complaints Endocrine: Denies palpitations Physical Exam Vital Signs: Last Vital Signs Temp 97.8 F 02/13/23 08:00 Pulse 78 02/13/23 08:46 Resp 22 H 02/13/23 08:54 BP 136/88 02/13/23 08:00 Pulse Ox 83 L 02/13/23 08:00 O2 Del Method Nasal Cannula 02/13/23 08:00 O2 Flow Rate 2 02/13/23 08:00 FiO2 60 02/13/23 07:00 BMI result Body Mass Index 61.5 Const General: cooperative and comfortable Nutritional Appearance: obese Orientation/consciousness: patient oriented x3 Neck Neck: Yes trachea midline, Yes supple and Yes other (Difficult to evaluate JVD) Resp Effort & Inspection: decreased respiratory effort Auscultation: no rales and diminished lung sounds Cardio Rhythm: abnormal rhythm irregularly irregular Heart sounds: S1 normal heart sound present and S2 normal heart sound present Neuro General: patient oriented x3 Extrem General: No clubbing, No cyanosis and Yes edema Objective Labs and Meds 02/13/23 05:26 02/13/23 05:26 Lab results: Laboratory Results - last 24 hr 02/12/23 02/12/23 02/12/23 11:44 16:27 17:16 WBC RBC Hgb Hct MCV MCH MCHC RDW Plt Count MPV Immature Gran % (Auto) Neut % (Auto) Lymph % (Auto) [place] % (Auto) Eos % (Auto) Baso % (Auto) Lymph # (Auto) [place] # (Auto) Eos # (Auto) Baso # (Auto) Abs Immat Gran (auto) Absolute Neuts (auto) Absolute Nucleated RBC Nucleated RBC % (auto) O2 Saturation 78.0 ABG pH at Pt Temp 7.23 L ABG pCO2 at Pt Temp 117 H* ABG pO2 at Pt Temp 57 L ABG HCO3 49 H ABG Base Excess (Actual) 16.3 VBG pH VBG pCO2 VBG pO2 VBG HCO3 VBG O2 Saturation VBG Base Excess Sodium Potassium Chloride Carbon Dioxide Anion Gap BUN Creatinine Estim Creat Clear Calc Estimated GFR POC Glucose 308 H 330 H Random Glucose Lactic Acid Calcium Phosphorus Magnesium Total Bilirubin AST ALT Alkaline Phosphatase Total Protein Albumin 02/12/23 02/12/23 02/12/23 18:04 18:57 20:27 WBC RBC Hgb Hct MCV MCH MCHC RDW Plt Count MPV Immature Gran % (Auto) Neut % (Auto) Lymph % (Auto) [place] % (Auto) Eos % (Auto) Baso % (Auto) Lymph # (Auto) [place] # (Auto) Eos # (Auto) Baso # (Auto) Abs Immat Gran (auto) Absolute Neuts (auto) Absolute Nucleated RBC Nucleated RBC % (auto) O2 Saturation 92.0 ABG pH at Pt Temp 7.25 L ABG pCO2 at Pt Temp 107 H* ABG pO2 at Pt Temp 76 L ABG HCO3 48 H ABG Base Excess (Actual) 16.0 VBG pH VBG pCO2 VBG pO2 VBG HCO3 VBG O2 Saturation VBG Base Excess Sodium Potassium Chloride Carbon Dioxide Anion Gap BUN Creatinine Estim Creat Clear Calc Estimated GFR POC Glucose 343 H Random Glucose Lactic Acid 0.7 Calcium Phosphorus Magnesium Total Bilirubin AST ALT Alkaline Phosphatase Total Protein Albumin 02/12/23 02/13/23 02/13/23 20:45 05:25 05:26 WBC 8.8 RBC 3.59 L Hgb 9.5 L Hct 32.9 L MCV 91.6 MCH 26.5 L MCHC 28.9 L RDW 15.0 Plt Count 417 H MPV 9.9 Immature Gran % (Auto) 1.1 H Neut % (Auto) 85.3 H Lymph % (Auto) 5.5 L [place] % (Auto) 7.9 Eos % (Auto) 0.0 Baso % (Auto) 0.2 Lymph # (Auto) 0.5 L [place] # (Auto) 0.7 Eos # (Auto) 0.0 Baso # (Auto) 0.0 Abs Immat Gran (auto) 0.10 H Absolute Neuts (auto) 7.5 Absolute Nucleated RBC 0.020 H Nucleated RBC % (auto) 0.2 O2 Saturation ABG pH at Pt Temp ABG pCO2 at Pt Temp ABG pO2 at Pt Temp ABG HCO3 ABG Base Excess (Actual) VBG pH 7.37 VBG pCO2 85 VBG pO2 67 VBG HCO3 49 H VBG O2 Saturation 90.0 VBG Base Excess 20.3 Sodium 139 Potassium 4.9 Chloride 88 L Carbon Dioxide 41 H* Anion Gap 15 BUN 24 H Creatinine 1.11 Estim Creat Clear Calc 76.5 Estimated GFR 50 POC Glucose Random Glucose 371 H* Lactic Acid Calcium 9.0 Phosphorus 5.5 H Magnesium 2.0 Total Bilirubin 0.4 AST 22 ALT 33 H Alkaline Phosphatase 113 Total Protein 7.4 Albumin 4.2 02/13/23 02/13/23 05:26 07:35 WBC RBC Hgb Hct MCV MCH MCHC RDW Plt Count MPV Immature Gran % (Auto) Neut % (Auto) Lymph % (Auto) [place] % (Auto) Eos % (Auto) Baso % (Auto) Lymph # (Auto) [place] # (Auto) Eos # (Auto) Baso # (Auto) Abs Immat Gran (auto) Absolute Neuts (auto) Absolute Nucleated RBC Nucleated RBC % (auto) O2 Saturation ABG pH at Pt Temp ABG pCO2 at Pt Temp ABG pO2 at Pt Temp ABG HCO3 ABG Base Excess (Actual) VBG pH VBG pCO2 VBG pO2 VBG HCO3 VBG O2 Saturation VBG Base Excess Sodium 141 Potassium 4.8 Chloride 89 L Carbon Dioxide 44 H* Anion Gap 13 BUN 31 H Creatinine 1.16 Estim Creat Clear Calc 73.2 Estimated GFR 47 POC Glucose 262 H Random Glucose 309 H Lactic Acid Calcium 9.3 Phosphorus Magnesium Total Bilirubin 0.3 AST 20 ALT 32 H Alkaline Phosphatase 107 Total Protein 7.3 Albumin 4.2 Imaging Radiologist's impression: Impressions Chest X-Ray 02/12/23 17:27 IMPRESSION: Cardiomegaly and pulmonary vascular congestion. No overt pulmonary edema. Progress Note: A&P Assessment and plan (1) Acute on chronic respiratory failure with hypoxemia: Status: Acute Assessment and Plan: Acute respiratory failure in this patient is multifactorial. She has significant hypoventilation related to obesity along with underlying COPD and superimposed with possibly pulmonary parenchymal disease related to COVID. She also has a component of congestive heart failure although this is difficult to assess given her body habitus. Continue IV diuresis. Continue current rate control for atrial fibrillation. Strict intake and output chart needs to be pursued. Continue oxygen supplementation to maintain oxygen saturation over 90% to reduce pulmonary vaso constriction and related change in pulmonary and right- sided hemodynamics. Overall prognosis remains guarded. Continue supportive care. (2) Atrial fibrillation, new onset: Status: Acute Assessment and Plan: Atrial fibrillation with better rate control. Transition to p.o. Cardizem and then slowly taper and discontinue Cardizem drip. Currently her heart rate is well controlled without adding a 2nd agent. Continue full oral anticoagulation Eliquis. Continue treatment of her underlying cardiopulmonary issues as above. Will sign of the case at this point time. Will follow-up as need be. Thank you for allowing me to partake in her care Time Spent With Patient Time: Total time managing care of this patient today ____ minutes. Progress Note: Quality Stroke Does the patient have a stroke diagnosis?: No Procedures Date of Service Date of Service: 02/13/23
[2023-02-13] MEDS: 0.9 % Sodium Chloride Flush 3 ML SYRINGE IVFLUSH ×2 (09:52→17:34)
[2023-02-13] MEDS: Artificial Tears 15 ML DROPS 2 DROP EYE-BOTH ×2 (09:52→11:50)
[2023-02-13] MEDS: dilTIAZem HCL 30 MG TABLET 90 MG PO ×3 (11:48→19:54)
--- NOTE | 2023-02-13 12:23 | P.PNCC_ITS ---
Subjective Subjective Date of Service: 02/13/23 Interval History: maintained on AVAPS PM with clinical improvement Critical Care Time (minutes): 90 Physical Exam Vital Signs: Vital Signs: Last Vital Signs Temp 98.2 F 02/13/23 11:00 Pulse 84 02/13/23 11:00 Resp 14 02/13/23 11:00 BP 156/99 H 02/13/23 11:00 Pulse Ox 92 02/13/23 11:00 O2 Del Method BiPAP 02/13/23 11:00 O2 Flow Rate 2 02/13/23 08:00 FiO2 50 02/13/23 11:00 BMI result Body Mass Index 61.5 Const: Other: no acute distress; morbidly obese General: cooperative and comfortable HEENT: Head: Yes normal to inspection, Yes normocephalic and Yes atraumatic Eyes: General: appearance normal, both eyes and all related structures Pupils: Equal, round and reactive pupils present EOM: EOMs intact bilaterally Neck: Neck: Yes normal visual inspection and Yes supple Chest: Chest palpation & inspection: normal inspection of the chest Resp: Other: diminished breath sounds throughout; mildly labored breathing, though no nasal flaring, retractions, Cardio: Other: diminished cardiac sounds Rhythm: abnormal rhythm irregularly irregular GI: Inspection: Yes normal to inspection and Yes distended Palpation (GI): Soft to palpation, nontender, no guarding and not rigid Skin: General skin exam: no rashes or lesions noted Neuro: Other: awake, alert, oriented to person, place, time, situation; answers questions appropriately, follows commands; Cranial nerves: Yes Equal, round and reactive pupils present Extrem: Other: non-pitting edema throughout General: Yes capillary refill normal Psych: Appearance: grossly normal Objective Data Labs 02/13/23 05:26 02/13/23 05:26 Labs: Laboratory Results - last 24 hr 02/12/23 02/12/23 02/12/23 16:27 17:16 18:04 WBC RBC Hgb Hct MCV MCH MCHC RDW Plt Count MPV Immature Gran % (Auto) Neut % (Auto) Lymph % (Auto) [place] % (Auto) Eos % (Auto) Baso % (Auto) Lymph # (Auto) [place] # (Auto) Eos # (Auto) Baso # (Auto) Abs Immat Gran (auto) Absolute Neuts (auto) Absolute Nucleated RBC Nucleated RBC % (auto) O2 Saturation 78.0 92.0 ABG pH at Pt Temp 7.23 L 7.25 L ABG pCO2 at Pt Temp 117 H* 107 H* ABG pO2 at Pt Temp 57 L 76 L ABG HCO3 49 H 48 H ABG Base Excess (Actual) 16.3 16.0 VBG pH VBG pCO2 VBG pO2 VBG HCO3 VBG O2 Saturation VBG Base Excess Sodium Potassium Chloride Carbon Dioxide Anion Gap BUN Creatinine Estim Creat Clear Calc Estimated GFR POC Glucose 330 H Random Glucose Lactic Acid Calcium Phosphorus Magnesium Total Bilirubin AST ALT Alkaline Phosphatase Total Protein Albumin 02/12/23 02/12/23 02/12/23 18:57 20:27 20:45 WBC RBC Hgb Hct MCV MCH MCHC RDW Plt Count MPV Immature Gran % (Auto) Neut % (Auto) Lymph % (Auto) [place] % (Auto) Eos % (Auto) Baso % (Auto) Lymph # (Auto) [place] # (Auto) Eos # (Auto) Baso # (Auto) Abs Immat Gran (auto) Absolute Neuts (auto) Absolute Nucleated RBC Nucleated RBC % (auto) O2 Saturation ABG pH at Pt Temp ABG pCO2 at Pt Temp ABG pO2 at Pt Temp ABG HCO3 ABG Base Excess (Actual) VBG pH VBG pCO2 VBG pO2 VBG HCO3 VBG O2 Saturation VBG Base Excess Sodium 139 Potassium 4.9 Chloride 88 L Carbon Dioxide 41 H* Anion Gap 15 BUN 24 H Creatinine 1.11 Estim Creat Clear Calc 76.5 Estimated GFR 50 POC Glucose 343 H Random Glucose 371 H* Lactic Acid 0.7 Calcium 9.0 Phosphorus 5.5 H Magnesium 2.0 Total Bilirubin 0.4 AST 22 ALT 33 H Alkaline Phosphatase 113 Total Protein 7.4 Albumin 4.2 02/13/23 02/13/23 02/13/23 05:25 05:26 05:26 WBC 8.8 RBC 3.59 L Hgb 9.5 L Hct 32.9 L MCV 91.6 MCH 26.5 L MCHC 28.9 L RDW 15.0 Plt Count 417 H MPV 9.9 Immature Gran % (Auto) 1.1 H Neut % (Auto) 85.3 H Lymph % (Auto) 5.5 L [place] % (Auto) 7.9 Eos % (Auto) 0.0 Baso % (Auto) 0.2 Lymph # (Auto) 0.5 L [place] # (Auto) 0.7 Eos # (Auto) 0.0 Baso # (Auto) 0.0 Abs Immat Gran (auto) 0.10 H Absolute Neuts (auto) 7.5 Absolute Nucleated RBC 0.020 H Nucleated RBC % (auto) 0.2 O2 Saturation ABG pH at Pt Temp ABG pCO2 at Pt Temp ABG pO2 at Pt Temp ABG HCO3 ABG Base Excess (Actual) VBG pH 7.37 VBG pCO2 85 VBG pO2 67 VBG HCO3 49 H VBG O2 Saturation 90.0 VBG Base Excess 20.3 Sodium 141 Potassium 4.8 Chloride 89 L Carbon Dioxide 44 H* Anion Gap 13 BUN 31 H Creatinine 1.16 Estim Creat Clear Calc 73.2 Estimated GFR 47 POC Glucose Random Glucose 309 H Lactic Acid Calcium 9.3 Phosphorus Magnesium Total Bilirubin 0.3 AST 20 ALT 32 H Alkaline Phosphatase 107 Total Protein 7.3 Albumin 4.2 02/13/23 07:35 WBC RBC Hgb Hct MCV MCH MCHC RDW Plt Count MPV Immature Gran % (Auto) Neut % (Auto) Lymph % (Auto) [place] % (Auto) Eos % (Auto) Baso % (Auto) Lymph # (Auto) [place] # (Auto) Eos # (Auto) Baso # (Auto) Abs Immat Gran (auto) Absolute Neuts (auto) Absolute Nucleated RBC Nucleated RBC % (auto) O2 Saturation ABG pH at Pt Temp ABG pCO2 at Pt Temp ABG pO2 at Pt Temp ABG HCO3 ABG Base Excess (Actual) VBG pH VBG pCO2 VBG pO2 VBG HCO3 VBG O2 Saturation VBG Base Excess Sodium Potassium Chloride Carbon Dioxide Anion Gap BUN Creatinine Estim Creat Clear Calc Estimated GFR POC Glucose 262 H Random Glucose Lactic Acid Calcium Phosphorus Magnesium Total Bilirubin AST ALT Alkaline Phosphatase Total Protein Albumin Microbiology Microbiology Results: Microbiology 02/11/23 18:04 Blood - Venous Blood Culture - Preliminary No growth after 24 hours. 02/11/23 18:04 Blood - Venous Blood Culture - Preliminary No growth after 24 hours. Progress Note: A&P Assessment and plan (1) Atrial fibrillation, new onset: Status: Acute (2) Diabetes mellitus: Status: Acute (3) Acute on chronic respiratory failure with hypoxemia: Status: Acute (4) COPD exacerbation: Status: Acute (5) CHF exacerbation: Status: Acute Plan 62 Y F with morbid obesity, c/b p/t ED on 02/11 w/ dyspnea x3 days, found to be COVID positive; hospital course c/b worsening acute/chronic respiratory failure, necessitating non-invasive positive pressure ventilation, new-onset atrial fibrillation N: encephalopathic, likely d/t hypercarbia, improving on AVAPS; to trial oxy- mask vs high-flow nasal cannula AM CV: new-onset atrial fibrillation, though maintaining blood pressure; to transition diltiazem gtt to PO; CHF exacerbation, to consider additional diuresis R: acute/chronic mixed respiratory failure, likely multifactorial, d/t CHF, COPD, and COVID; to continue diuresis, duonebs, dexamethasone, and remdesivir GI: nutrition: clear liquid diet when not on AVAPS : function: at baseline; electrolytes: no appreciable derangements; volume: I/O goal net negative ID: COVID, c/f pneumonia, dexamethasone, remdesivir; appreciate infectious di carlos albertoe recommendations H: new-onset atrial fibrillation, started on epixaban this admission E: diabetes, c/b hyperglycemia; insulin sliding scale Quality Stroke Does the patient have a stroke diagnosis?: No VTE Prior VTE?: No VTE Risk Level:: Medical - moderate - high VTE Device Contraindication: Treatment Not Indicated VTE Drug Contraindication: N/A - Med Ordered
[2023-02-13 12:35] LABS: Glucose, Whole Blood 230 mg/dL (60-115)
[2023-02-13] MEDS: Lactated Ringers 500 ML 999 ML IV (13:03)
--- NOTE | 2023-02-13 13:47 | PC.NURSE ---
Addendum entered by Bridger Vazquez RN 02/14/23 00:31: Patient Purewick repositioned and noted to have some incontinence around purewick as well as what appears to be a MDPI at the upper right side of pubic area, photographed, cleaned, and covered with foam dressing. Urine output also totaled 500 ccs in addition to this incontinence episode over 16 hours today. PA notified and gorman catheter ordered, but patient refused this despite education in English, because she reports the last time she had a urinary cather was very traumatic. PA aware. Addendum entered by Bridger Vazquez RN 02/13/23 20:19: Patient reporting feeling asthmatic, lung sounds with tight inspiratory wheezes bilateral posterior bases to auscultation, RT notified and in to deliver duoneb Addendum entered by Bridger Vazquez RN 02/13/23 20:16: Patient had desatted, staying 83% on 60% fiO2 and 50 LPM hi flow, and was uptitirated to 95% gradually and 50 LPM hi flow. Now, after dinner, patient POC remained elevated 301, and PA notified and also covered with 8 U lispro. Patient found to be incontinent of moderate amount of urine around purewick, also 400 ccs of urine seen in cannister. patient seems to have developed a small 2 cm x 2 cm open area related to purewick suction hub contact with upper right pannis. Original Note: Assumed care at 07:00. Patient alert, oriented x4, follows commands, responds appropriately, not on any sedation. Patient is English speaking mostly and communicated with in English. Patient reported 4/10 pain to left hip s/p tylenol. After a few hours, the pain had increased to 7/10 and more localized at an area immediately proximal to the left knee, applied ice packs, discussed pain medications with patient and MD, and patient soon had reported resolution of the leg/knee pain to 0/10 after ice packs. Patient now denying pain. Patient was initially on AVAPS settings on bipap EPAP 8; FiO2 40%; Max Pressure 25; Rate 18, Tidal volume 400, minute volumes 10 L/M, SpO2 was staying about 86% in late morning, FiO2 uptitrated to 50% with effect. SpO2 goal is 88% and higher. Patient denies SOB, Denies increased WOB. Tolerated repositioning, participates in repositioning, 2 assist to reposition. Patient does develop orthopnea when supine. Patient without any productive cough, but reports increased nasal congestion, L nare worse then R nare. Crusty eye secretions, MD notified and new order for artificial tears applied with effect. Patient with distant irregular heart sounds, no apparent edema, hypertensive BP SPB 160's. Afib on telemetry with rate controlled in 60's-80's, seen by cardiology, weaned off diltiazem and started PO diltiazem. Denies chest pain or dizziness. Patient noted to have low urine outputs documented over last 48 hours (only 400 ccs); currently has purewick, initially with 0 output, bladderscanned for 276 ccs this morning, continued to monitor, patient denied abdominal discomfort, denies urge to void, bladder scanned again in after noon for 48 ccs and has voided a small amount via purewick, see I&Os. No apparent edema. Discussed oliguria witmarvin JEAN and new order for 500 cc LR bolus, administered, and MD then performed bedside echo with finding IVC to be plump. Afebrile, continues on Remdesivir and decadron. Meds whole with thin liquids. Had >50% clear liquid diet tray at lunch.
[2023-02-13 15:24] LABS: VBG Base Excess 19.4 mmol/L; VBG HCO3 47 mmol/L (22-26); VBG pCO2 70 mmHg; VBG pH 7.43 (7.32-7.43); VBG pO2 162 mmHg
[2023-02-13 15:34] LABS: Anion Gap 15 (12-20); Blood Urea Nitrogen 34 mg/dL (9-16); Calcium 9.2 mg/dL (8.4-10.2); Carbon Dioxide 42 mmol/L (22-29); Chloride 88 mmol/L (96-108); Creatinine Clr Calc Pharmacy 72.6; Estimated Glomerular Filt Rate 47; Glucose Random 371 mg/dL (60-115); Potassium 4.7 mmol/L (3.3-5.1); Sodium 140 mmol/L (135-145)
--- NOTE | 2023-02-13 16:05 | MHC.CM.PN ---
PT REMAINS IN ICU WITH ACUTE ON CHRONIC RESPIRATORY FAILURE WITH HYPOXEMIA, COVID +. PT IS CURRENTLY ON HF02.CM WILL CONTINUE TO FOLLOW FOR ANY CHANGE IN DC PLAN/NEEDS.
[2023-02-13 16:46] LABS: Glucose, Whole Blood 329 mg/dL (60-115)
[2023-02-13 17:06] LABS: Venous Blood Gas Refer to POC result
--- NOTE | 2023-02-13 17:33 | MHC.SL.SWA ---
Addendum entered and electronically signed by YANELY Jones 02/13/23 17:54: Per RN, patient tolerating pills whole w/ liquid. Original Note: Risk of Aspiration Due to: Limited mobility HFNC Dysphasia Diet Status: No change Liquid Consistency and Strategies for Safe Swallow: Liquid Intake Recommendation: Thin Solid Food Consistency: Dietary Recommendations: clear liquid diet per MD Oral Medication Intake: Crushed with Puree Please contact the pharmacy regarding appropriate crushable or liquid drug formulations that are available whenever modified delivery is recommended. Compensatory Strategies and Precautions to be Taken for Safe Swallow: Sitting Upright (90 deg) No Straw Supervision While Eating and Drinking for Safe Swallow: Total Assistance/supervision Recommendation for Speech: Further Testing Needed Inpatient Speech Therapy Comment: Only thin liquids and minimal puree solids trialed d/t patient on clear liquid diet. Recommend patient continue with THIN liquids w/ no straws while on clear liquid diet. When cleared to upgrade from liquid diet, SLEEP MEDICINE PHYSICIAN to trial more advanced solids. Recommend pills crushed when/if possible. Batch Dumper Clinican/Clinical Fellow: Supervisory Statement: I have reviewed and agree with the student/clinical fellow's documentation: Speech Language Pathologist:
[2023-02-13] MEDS: Remdesivir 100 MG in 0.9 % Sodium Chloride 230 ML 115 MG IV (17:35)
[2023-02-13] MEDS: Atorvastatin Calcium 80 MG TABLET PO (19:54)
[2023-02-13 20:14] LABS: Glucose, Whole Blood 301 mg/dL (60-115)
--- NOTE | 2023-02-13 23:23 | P.PNID_ITS ---
Subjective Subjective Date of Service: 02/13/23 Critical Care Time (minutes): 15 Comment: she continues on biPap,60% 91 saturation She is on day 2 Remdesivir and Dexamethasone Objective Data Labs 02/13/23 05:26 02/13/23 15:06 Labs: Laboratory Results - last 24 hr 02/13/23 02/13/23 02/13/23 05:25 05:26 05:26 WBC 8.8 RBC 3.59 L Hgb 9.5 L Hct 32.9 L MCV 91.6 MCH 26.5 L MCHC 28.9 L RDW 15.0 Plt Count 417 H MPV 9.9 Immature Gran % (Auto) 1.1 H Neut % (Auto) 85.3 H Lymph % (Auto) 5.5 L [place] % (Auto) 7.9 Eos % (Auto) 0.0 Baso % (Auto) 0.2 Lymph # (Auto) 0.5 L [place] # (Auto) 0.7 Eos # (Auto) 0.0 Baso # (Auto) 0.0 Abs Immat Gran (auto) 0.10 H Absolute Neuts (auto) 7.5 Absolute Nucleated RBC 0.020 H Nucleated RBC % (auto) 0.2 VBG pH 7.37 VBG pCO2 85 VBG pO2 67 VBG HCO3 49 H VBG O2 Saturation 90.0 VBG Base Excess 20.3 Sodium 141 Potassium 4.8 Chloride 89 L Carbon Dioxide 44 H* Anion Gap 13 BUN 31 H Creatinine 1.16 Estim Creat Clear Calc 73.2 Estimated GFR 47 POC Glucose Random Glucose 309 H Calcium 9.3 Total Bilirubin 0.3 AST 20 ALT 32 H Alkaline Phosphatase 107 Total Protein 7.3 Albumin 4.2 02/13/23 02/13/23 02/13/23 07:35 11:56 15:06 WBC RBC Hgb Hct MCV MCH MCHC RDW Plt Count MPV Immature Gran % (Auto) Neut % (Auto) Lymph % (Auto) [place] % (Auto) Eos % (Auto) Baso % (Auto) Lymph # (Auto) [place] # (Auto) Eos # (Auto) Baso # (Auto) Abs Immat Gran (auto) Absolute Neuts (auto) Absolute Nucleated RBC Nucleated RBC % (auto) VBG pH VBG pCO2 VBG pO2 VBG HCO3 VBG O2 Saturation VBG Base Excess Sodium 140 Potassium 4.7 Chloride 88 L Carbon Dioxide 42 H* Anion Gap 15 BUN 34 H Creatinine 1.17 Estim Creat Clear Calc 72.6 Estimated GFR 47 POC Glucose 262 H 230 H Random Glucose 371 H* Calcium 9.2 Total Bilirubin AST ALT Alkaline Phosphatase Total Protein Albumin 02/13/23 02/13/23 02/13/23 15:18 16:43 19:52 WBC RBC Hgb Hct MCV MCH MCHC RDW Plt Count MPV Immature Gran % (Auto) Neut % (Auto) Lymph % (Auto) [place] % (Auto) Eos % (Auto) Baso % (Auto) Lymph # (Auto) [place] # (Auto) Eos # (Auto) Baso # (Auto) Abs Immat Gran (auto) Absolute Neuts (auto) Absolute Nucleated RBC Nucleated RBC % (auto) VBG pH 7.43 VBG pCO2 70 VBG pO2 162 VBG HCO3 47 H VBG O2 Saturation 100.0 VBG Base Excess 19.4 Sodium Potassium Chloride Carbon Dioxide Anion Gap BUN Creatinine Estim Creat Clear Calc Estimated GFR POC Glucose 329 H 301 H Random Glucose Calcium Total Bilirubin AST ALT Alkaline Phosphatase Total Protein Albumin Microbiology Microbiology Results: Microbiology 02/11/23 18:04 Blood - Venous Blood Culture - Preliminary No growth after 48 hours. 02/11/23 18:04 Blood - Venous Blood Culture - Preliminary No growth after 48 hours. Physical Exam Vital Signs: Vital Signs: Last Vital Signs Temp 99.3 F 02/13/23 21:00 Pulse 89 02/13/23 23:00 Resp 11 L 02/13/23 23:00 BP 133/88 02/13/23 23:00 Pulse Ox 91 L 02/13/23 23:00 O2 Del Method BiPAP 02/13/23 23:00 O2 Flow Rate 50 02/13/23 22:00 FiO2 60 02/13/23 23:00 Oxygen Flow Rate 50 02/13/23 08:00 BMI result Body Mass Index 66.5 Const: General: cooperative Resp: Effort & Inspection: decreased respiratory effort Auscultation: diminished lung sounds Cardio: Rate: regular rate GI: Palpation (GI): nontender Assessment and Plan Assessment and plan (1) COVID-19: Problem details: She is still short of breath but has saturation over 90% Status: Acute Assessment and Plan: Continue steroids and Remdesivir 5 day course,now d 2/. High glucose but no opportunistic infections seen. (2) Diabetes mellitus: Status: Acute (3) Acute on chronic respiratory failure with hypoxemia: Status: Acute Time Spent With Patient Time: Total time managing care of this patient today ____ minutes.
[2023-02-14] VITALS (31 sets, daily range): BP systolic 127–156; BP diastolic 67–117; PULSE 78–108; RESP 11–25; TEMP 36.2–37.1; O2SAT 90–96; BMI 62.8; BMI 66.5
[2023-02-14] MEDS: 0.9 % Sodium Chloride Flush 3 ML SYRINGE IVFLUSH ×4 (00:38→20:03)
--- NOTE | 2023-02-14 00:48 | HO.SKINPHOTO ---
Addendum entered by Bridger Vazquez RN 02/18/23 12:47: 1 cm x 1 cmx 0.1 cm Original Note: Location: R groin/distal pannis Category: MDPI Stage: 2 Length: 2cm Width: 2cm Depth: 0.2 cm Location: Category: Stage: Length: Width: Depth: cm Location: Category: Stage: Length: Width: Depth: cm Location: Category: Stage: Length: Width: Depth: cm Location: Category: Stage: Length: Width: Depth: cm Location: Category: Stage: Length: Width: Depth: cm
[2023-02-14 05:44] LABS: VBG Base Excess 16.9 mmol/L; VBG HCO3 47 mmol/L (22-26); VBG pCO2 95 mmHg; VBG pO2 70 mmHg
[2023-02-14 06:39] LABS: Alanine Aminotransferase 42 U/L (0-31); Albumin Level 4.4 g/dL (3.5-5.0); Alkaline Phosphatase 114 U/L (39-117); Anion Gap 14 (12-20); Aspartate Amino Transferase 23 U/L (5-31); Bilirubin Total 0.4 mg/dL (0.0-1.0); Blood Urea Nitrogen 34 mg/dL (9-16); Calcium 9.3 mg/dL (8.4-10.2); Carbon Dioxide 41 mmol/L (22-29); Chloride 89 mmol/L (96-108); Creatinine Clr Calc Pharmacy 94.3; Estimated Glomerular Filt Rate 60; Glucose Random 276 mg/dL (60-115); Potassium 4.5 mmol/L (3.3-5.1); Sodium 139 mmol/L (135-145); Total Protein 7.6 g/dL (6.5-8.0)
[2023-02-14 06:41] LABS: Basophils Percent Auto 0.1 % (0-2); Hematocrit 34.9 % (37.0-47.0); Hemoglobin 10.1 g/dl (12.0-16.0); Imm Gran Pct Auto 0.9 % (0.0-0.4); Lymphocytes Absolute Auto 0.5 X10*3/uL (1.2-4.9); Lymphocytes Percent Auto 4.6 % (20-40); MANUAL DIFF FLAG NO; Mean Corpuscular HGB Conc 28.9 g/dl (31.0-35.0); Mean Corpuscular Hemoglobin 26.2 pg (27.0-33.0); Mean Corpuscular Volume 90.4 fL (80.0-98.0); Mean Platelet Volume 9.6 fL (9.4-12.3); Monocytes Absolute Auto 0.8 X10*3/uL (0.1-1.2); Monocytes Percent Auto 7.4 % (2-11); Neutrophils Absolute Auto 9.7 x10*3/uL (2.0-8.3); Platelet Count 483 X10*3/uL (160-400); Red Blood Count 3.86 X10*6/uL (4.20-5.50); Red Cell Distribution Width 14.9 % (11.0-16.0); White Blood Count 11.2 X10*3/uL (4.8-10.8)
[2023-02-14 07:46] LABS: Glucose, Whole Blood 272 mg/dL (60-115)
[2023-02-14 08:05] LABS: Venous Blood Gas Refer to POC result
[2023-02-14] MEDS: Albuterol/Iprat 2.5/0.5MG 3 ML AMPUL.NEB INHALE ×4 (08:43→20:23)
[2023-02-14] MEDS: Insulin Glargine,Hum.rec.anlog 100 UNIT/ML 10 ML VIAL 10 UNIT SUBCUT (09:15)
[2023-02-14] MEDS: Furosemide 40 MG/4 ML VIAL IVPUSH (09:15)
[2023-02-14] MEDS: Insulin Lispro 100 UNIT/ML 3 ML VIAL SUBCUT ×4 (09:15→20:02)
[2023-02-14] MEDS: acetaZOLAMIDE sodium 500 MG VIAL IVPUSH ×2 (09:19→19:34)
[2023-02-14] MEDS: dilTIAZem HCL 30 MG TABLET 90 MG PO ×3 (10:38→20:02)
[2023-02-14] MEDS: amLODIPine Besylate 10 MG TABLET PO (10:38)
[2023-02-14] MEDS: dexAMETHasone 6 MG TABLET PO (10:39)
[2023-02-14] MEDS: Apixaban 5 MG TABLET PO ×2 (10:39→20:02)
[2023-02-14] MEDS: Lidocaine 4 % Patch ADH..PATCH 1 PATCH TRANSDERMA (10:39)
[2023-02-14 11:43] LABS: Glucose, Whole Blood 303 mg/dL (60-115)
--- NOTE | 2023-02-14 11:55 | MHC.SL.SWA ---
Speech Pathologist Impression: Risk of Aspiration Due to: Dysphasia Diet Status: Clear liquid diet. No liquids by straw please. Liquid Consistency and Strategies for Safe Swallow: Liquid Intake Recommendation: Thin Liquid Intake Strategies: Solid Food Consistency: Dietary Recommendations: clear liquid Additional Modifications to Solid Foods: Assure patient is adequately awake and alert before giving anything PO. Oral Medication Intake: Whole with Liquid Please contact the pharmacy regarding appropriate crushable or liquid drug formulations that are available whenever modified delivery is recommended. Compensatory Strategies and Precautions to be Taken for Safe Swallow: Sitting Upright (90 deg) No Straw Liquids from Cup Liquids from Spoon Small Bites and Sips Rate of Ingestion Change Supervision While Eating and Drinking for Safe Swallow: Total Assistance (1:1) Foods to Avoid: Swallowing Recommended Treatments: Compens. Strategy Educat. Recommendation for Speech: Further Testing Needed Inpatient Speech Therapy Comment: Patient seen this a.m. for treatment/re-assessment. Per RN, patient continues on Clear Liquid Diet. Patient reportedly tolerated taking pills whole with liquid this morning, needed to take one by one, however patient very lethargic, requiring shaking to become adequately awake/alert between pills. RN also reported patient's fed patient jello, somewhat rapidly, but patient still did well. Patient was awake at time of visit, agreed to have head of bed raised and to take some liquids and Jello. Patient currently on High Flow Cannula. Patient was given tsps of water with some anterior escape noted, timely oral phase and timely swallow, no clinical signs of aspiration, O2 Sats remaining n high 90s. Patient's swallow is difficult to palpate due to large fat pad on neck. Patient was then given tsps of Jello, again producing timely oral and pharyngeal phase of swallow, no clinical signs of aspiration, 02 Sats remaining in 90s. After 6 tsps of Jello, patient said ya. As plan is to continue on thin liquid, no further textures were attempted today. Patient is tolerating current diet. Recommend continue on thin liquids, with SALAD BAR CLERK to assess for more advanced textures when appropriate for patient. Frequency/Duration: Date Range for Service Req: Timeline to reassess: Pump House Engineer Clinican/Clinical Fellow: No Supervisory Statement: I have reviewed and agree with the student/clinical fellow's documentation: No Speech Language Pathologist: Oksana Wills M.A., [facility]-SALAD BAR CLERK
[2023-02-14 12:22] LABS: VBG Base Excess 19.8 mmol/L; VBG HCO3 48 mmol/L (22-26); VBG pCO2 80 mmHg; VBG pH 7.39 (7.32-7.43); VBG pO2 97 mmHg
[2023-02-14 13:11] LABS: Procalcitonin 0.03 ng/mL
--- NOTE | 2023-02-14 13:58 | MHC.CM.PN ---
Patient remains in ICU. +Covid 02/11. Using bipap intermittently. 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 Anticipate patient will return home when medicallys table. Patient is from her but he intends to stay with patient when she is d/c'd. Continue to monitor for d/c needs.
[2023-02-14 14:25] LABS: Venous Blood Gas Refer to POC result
--- NOTE | 2023-02-14 15:06 | P.PNCC_ITS ---
Subjective Subjective Date of Service: 02/14/23 Critical Care Time (minutes): 90 Physical Exam 2 Vital Signs: Vital Signs: Last Vital Signs Temp 97.8 F 02/14/23 12:00 Pulse 78 02/14/23 14:00 Resp 12 02/14/23 14:00 BP 145/70 H 02/14/23 14:00 Pulse Ox 90 L 02/14/23 14:00 O2 Del Method BiPAP 02/14/23 14:00 O2 Flow Rate 50 02/14/23 13:00 FiO2 60 02/14/23 14:00 Oxygen Flow Rate 50 02/13/23 08:00 BMI result Body Mass Index 66.5 Const: General: cooperative and no acute distress O rientation/consciousness: patient oriented x3 HEENT: Head: Yes normal to inspection, Yes normocephalic and Yes atraumatic Eyes: General: appearance normal, both eyes and all related structures P upils: Equal, round and reactive pupils present Neck: Neck: Yes normal visual inspection and Yes supple Chest: Chest palpation & inspection: normal inspection of the chest Resp: Other: decreased breath sounds throughout Cardio: Other: decreased heart sounds throughout GI: Inspection: No distended and Yes obesity Palpation (GI): Soft to palpation, nontender, no guarding and not rigid : General: Yes deferred Skin: General skin exam: no rashes or lesions noted Neuro: General: patient oriented x3 Cranial nerves: Yes Equal, round and reactive pupils present Extrem: Other: no appreciable pitting edema General: Yes normal to inspection Psych: Appearance: grossly normal Objective Data Labs 02/14/23 05:30 02/14/23 05:30 Labs: Laboratory Results - last 24 hr 02/13/23 02/13/23 02/13/23 15:06 15:18 16:43 WBC RBC Hgb Hct MCV MCH MCHC RDW Plt Count MPV Immature Gran % (Auto) Neut % (Auto) Lymph % (Auto) [place] % (Auto) Eos % (Auto) Baso % (Auto) Lymph # (Auto) [place] # (Auto) Eos # (Auto) Baso # (Auto) Abs Immat Gran (auto) Absolute Neuts (auto) Absolute Nucleated RBC Nucleated RBC % (auto) VBG pH 7.43 VBG pCO2 70 VBG pO2 162 VBG HCO3 47 H VBG O2 Saturation 100.0 VBG Base Excess 19.4 Sodium 140 Potassium 4.7 Chloride 88 L Carbon Dioxide 42 H* Anion Gap 15 BUN 34 H Creatinine 1.17 Estim Creat Clear Calc 72.6 Estimated GFR 47 POC Glucose 329 H Random Glucose 371 H* Calcium 9.2 Total Bilirubin AST ALT Alkaline Phosphatase Total Protein Albumin Procalcitonin 02/13/23 02/14/23 02/14/23 19:52 05:30 05:34 WBC 11.2 H RBC 3.86 L Hgb 10.1 L Hct 34.9 L MCV 90.4 MCH 26.2 L MCHC 28.9 L RDW 14.9 Plt Count 483 H MPV 9.6 Immature Gran % (Auto) 0.9 H Neut % (Auto) 87.0 H Lymph % (Auto) 4.6 L [place] % (Auto) 7.4 Eos % (Auto) 0.0 Baso % (Auto) 0.1 Lymph # (Auto) 0.5 L [place] # (Auto) 0.8 Eos # (Auto) 0.0 Baso # (Auto) 0.0 Abs Immat Gran (auto) 0.10 H Absolute Neuts (auto) 9.7 H Absolute Nucleated RBC 0.000 Nucleated RBC % (auto) 0.0 VBG pH 7.30 L VBG pCO2 95 VBG pO2 70 VBG HCO3 47 H VBG O2 Saturation 90.0 VBG Base Excess 16.9 Sodium 139 Potassium 4.5 Chloride 89 L Carbon Dioxide 41 H* Anion Gap 14 BUN 34 H Creatinine 0.95 Estim Creat Clear Calc 94.3 Estimated GFR 60 POC Glucose 301 H Random Glucose 276 H Calcium 9.3 Total Bilirubin 0.4 AST 23 ALT 42 H Alkaline Phosphatase 114 Total Protein 7.6 Albumin 4.4 Procalcitonin 02/14/23 02/14/23 02/14/23 07:41 11:39 12:09 WBC RBC Hgb Hct MCV MCH MCHC RDW Plt Count MPV Immature Gran % (Auto) Neut % (Auto) Lymph % (Auto) [place] % (Auto) Eos % (Auto) Baso % (Auto) Lymph # (Auto) [place] # (Auto) Eos # (Auto) Baso # (Auto) Abs Immat Gran (auto) Absolute Neuts (auto) Absolute Nucleated RBC Nucleated RBC % (auto) VBG pH VBG pCO2 VBG pO2 VBG HCO3 VBG O2 Saturation VBG Base Excess Sodium Potassium Chloride Carbon Dioxide Anion Gap BUN Creatinine Estim Creat Clear Calc Estimated GFR POC Glucose 272 H 303 H Random Glucose Calcium Total Bilirubin AST ALT Alkaline Phosphatase Total Protein Albumin Procalcitonin 0.03 02/14/23 12:17 WBC RBC Hgb Hct MCV MCH MCHC RDW Plt Count MPV Immature Gran % (Auto) Neut % (Auto) Lymph % (Auto) [place] % (Auto) Eos % (Auto) Baso % (Auto) Lymph # (Auto) [place] # (Auto) Eos # (Auto) Baso # (Auto) Abs Immat Gran (auto) Absolute Neuts (auto) Absolute Nucleated RBC Nucleated RBC % (auto) VBG pH 7.39 VBG pCO2 80 VBG pO2 97 VBG HCO3 48 H VBG O2 Saturation 99.0 VBG Base Excess 19.8 Sodium Potassium Chloride Carbon Dioxide Anion Gap BUN Creatinine Estim Creat Clear Calc Estimated GFR POC Glucose Random Glucose Calcium Total Bilirubin AST ALT Alkaline Phosphatase Total Protein Albumin Procalcitonin Microbiology Microbiology Results: Microbiology 02/11/23 18:04 Blood - Venous Blood Culture - Preliminary No growth after 48 hours. 02/11/23 18:04 Blood - Venous Blood Culture - Preliminary No growth after 48 hours. Progress Note: A&P Assessment and plan (1) Atrial fibrillation, new onset: Status: Acute (2) Diabetes mellitus: Status: Acute (3) Acute on chronic respiratory failure with hypoxemia: Status: Acute (4) COPD exacerbation: Status: Acute (5) CHF exacerbation: Status: Acute (6) COVID-19: Status: Acute Plan 62 Y F with morbid obesity, c/b p/t ED on 02/11 w/ dyspnea x3 days, found to be COVID positive; hospital course c/b worsening acute/chronic respiratory failure, necessitating non-invasive positive pressure ventilation, new-onset atrial fibrillation N: encephalopathic, likely d/t hypercarbia, improving on AVAPS; to trial oxy- mask vs high-flow nasal cannula AM CV: new-onset atrial fibrillation, though maintaining blood pressure; to transition diltiazem gtt to PO; CHF exacerbation, to consider additional diuresis R: acute/chronic mixed respiratory failure, likely multifactorial, d/t CHF, COPD, and COVID; appeared more somnolent when on high flow today, tolerated 2 hours, then placed on AVAPS; to continue diuresis, duonebs, dexamethasone, and remdesivir; GI: nutrition: clear liquid diet when not on AVAPS; to repeat speech/swallow evaluation : function: at baseline; electrolytes: no appreciable derangements; volume: I/O goal net negative ID: COVID, c/f pneumonia, dexamethasone, remdesivir; appreciate infectious disease recommendations H: new-onset atrial fibrillation, started on epixaban this admission E: diabetes, c/b hyperglycemia; insulin sliding scale Quality Stroke Does the patient have a stroke diagnosis?: No VTE Prior VTE?: No VTE Risk Level:: Medical - moderate - high VTE Device Contraindication: Treatment Not Indicated VTE Drug Contraindication: N/A - Med Ordered
[2023-02-14 16:29] LABS: Glucose, Whole Blood 279 mg/dL (60-115)
[2023-02-14] MEDS: Remdesivir 100 MG in 0.9 % Sodium Chloride 230 ML 115 MG IV (17:30)
[2023-02-14] MEDS: Furosemide 200 MG in 0.9 % Sodium Chloride 80 ML IVCONT (17:35)
[2023-02-14 18:34] LABS: Anion Gap 13 (12-20); Blood Urea Nitrogen 34 mg/dL (9-16); Carbon Dioxide 41 mmol/L (22-29); Chloride 90 mmol/L (96-108); Creatinine Clr Calc Pharmacy 107.9; Estimated Glomerular Filt Rate > 60; Glucose Random 283 mg/dL (60-115); Magnesium 2.2 mg/dL (1.6-2.6); Phosphorus 4.3 mg/dL (2.7-4.5); Potassium 4.4 mmol/L (3.3-5.1); Sodium 140 mmol/L (135-145)
[2023-02-14 19:49] LABS: Glucose, Whole Blood 286 mg/dL (60-115)
[2023-02-14] MEDS: Atorvastatin Calcium 80 MG TABLET PO (20:02)
[2023-02-14 23:36] LABS: Glucose, Whole Blood 299 mg/dL (60-115)
--- NOTE | 2023-02-14 23:48 | PC.NURSE ---
Care assumed 19:00 on 02/14. See assessments for full details. Pertinent findings reported to precipitator operator. Handoff report given to oncoming RN @ 23:00.
[2023-02-15] VITALS (30 sets, daily range): BP systolic 113–159; BP diastolic 59–91; PULSE 70–125; RESP 10–23; TEMP 36.4–37.4; O2SAT 87–97
[2023-02-15 05:22] LABS: VBG HCO3 50 mmol/L (22-26); VBG pCO2 71 mmHg; VBG pH 7.45 (7.32-7.43); VBG pO2 56 mmHg
[2023-02-15 05:24] LABS: MANUAL DIFF FLAG NO
[2023-02-15 05:25] LABS: Venous Blood Gas Refer to POC result
[2023-02-15 05:28] LABS: Basophils Percent Auto 0.1 % (0-2); Hematocrit 34.3 % (37.0-47.0); Imm Gran Abs Auto 0.07 X10*3/uL (0.00-0.03); Imm Gran Pct Auto 0.9 % (0.0-0.4); Lymphocytes Absolute Auto 0.4 X10*3/uL (1.2-4.9); Lymphocytes Percent Auto 5.3 % (20-40); Mean Corpuscular HGB Conc 29.2 g/dl (31.0-35.0); Mean Corpuscular Hemoglobin 25.6 pg (27.0-33.0); Mean Corpuscular Volume 87.7 fL (80.0-98.0); Mean Platelet Volume 9.7 fL (9.4-12.3); Monocytes Absolute Auto 0.6 X10*3/uL (0.1-1.2); Monocytes Percent Auto 7.5 % (2-11); Neutrophils Absolute Auto 6.4 x10*3/uL (2.0-8.3); Neutrophils Percent Auto 86.2 % (45-73); Platelet Count 444 X10*3/uL (160-400); Red Blood Count 3.91 X10*6/uL (4.20-5.50); Red Cell Distribution Width 14.6 % (11.0-16.0); White Blood Count 7.4 X10*3/uL (4.8-10.8)
[2023-02-15 05:51] LABS: Anion Gap 12 (12-20); Blood Urea Nitrogen 32 mg/dL (9-16); Calcium 9.2 mg/dL (8.4-10.2); Carbon Dioxide 44 mmol/L (22-29); Chloride 88 mmol/L (96-108); Creatinine Clr Calc Pharmacy 95.3; Estimated Glomerular Filt Rate > 60; Glucose Random 290 mg/dL (60-115); Phosphorus 4.1 mg/dL (2.7-4.5); Potassium 4.3 mmol/L (3.3-5.1); Sodium 140 mmol/L (135-145)
[2023-02-15] MEDS: acetaZOLAMIDE sodium 500 MG VIAL IVPUSH ×2 (07:55→20:26)
[2023-02-15] MEDS: Apixaban 5 MG TABLET PO ×2 (07:56→20:28)
[2023-02-15] MEDS: dexAMETHasone 6 MG TABLET PO (07:56)
[2023-02-15] MEDS: Insulin Glargine,Hum.rec.anlog 100 UNIT/ML 10 ML VIAL 10 UNIT SUBCUT (07:56)
[2023-02-15] MEDS: Lidocaine 4 % Patch ADH..PATCH 1 PATCH TRANSDERMA (07:56)
[2023-02-15] MEDS: amLODIPine Besylate 10 MG TABLET PO (07:56)
[2023-02-15] MEDS: 0.9 % Sodium Chloride Flush 3 ML SYRINGE IVFLUSH ×2 (07:58→16:37)
[2023-02-15] MEDS: Insulin Lispro 100 UNIT/ML 3 ML VIAL SUBCUT ×4 (07:59→20:50)
[2023-02-15 08:06] LABS: Glucose, Whole Blood 267 mg/dL (60-115)
[2023-02-15] MEDS: Albuterol/Iprat 2.5/0.5MG 3 ML AMPUL.NEB INHALE ×3 (08:27→20:32)
[2023-02-15] MEDS: dilTIAZem HCL 30 MG TABLET 90 MG PO ×4 (10:04→20:28)
[2023-02-15 12:10] LABS: Glucose, Whole Blood 522 mg/dL (60-115)
[2023-02-15] MEDS: Insulin Regular, Human 100 UNIT/ML 3 ML VIAL 10 UNIT IVPUSH ×2 (12:48→16:32)
--- NOTE | 2023-02-15 13:04 | PM.CCPN ---
Subjective Subjective Date of Service: 02/15/23 Interval History: no significant overnight events Critical Care Time (minutes): 90 Physical Exam Vital Signs: Vital Signs: Last Vital Signs Temp 98.8 F 02/15/23 11:59 Pulse 81 02/15/23 12:08 Resp 18 02/15/23 12:08 BP 113/79 02/15/23 11:59 Pulse Ox 90 L 02/15/23 11:59 O2 Del Method High Flow Nasal C annula 02/15/23 11:59 O2 Flow Rate 50 02/15/23 11:59 FiO2 60 02/15/23 11:59 Oxygen Flow Rate 50 02/13/23 08:00 BMI result Body Mass Index 66.5 Const: General: cooperative, comfortable and no acute distress Orientation/consciousness: patient oriented x3 HEENT: Head: Yes normal to inspection, Yes normocephalic and Yes atraumatic Eyes: General: appearance normal, both eyes and all related structures Pupils: Equal, round and reactive pupils present Neck: Neck: Yes normal visual inspection and Yes supple Chest: Chest palpation & inspection: normal inspection of the chest Resp: Other: decreased breath sounds throughout; no overt rales, rhonchi, wheezing Cardio: Rhythm: abnormal rhythm irregularly irregular GI: Inspection: Yes normal to inspection and No distended Palpation (GI): Soft to palpation, not firm, nontender, no guarding and not rigid Skin: General skin exam: no rashes or lesions noted Neuro: General: patient oriented x3 Cranial nerves: Yes Equal, round and reactive pupils present Extrem: General: Yes normal to inspection Psych: Appearance: grossly normal Objective Data Labs 02/15/23 05:17 02/15/23 05:17 Labs: Laboratory Results - last 24 hr 02/14/23 02/14/23 02/14/23 12:09 16:25 18:07 WBC RBC Hgb Hct MCV MCH MCHC RDW Plt Count MPV Immature Gran % (Auto) Neut % (Auto) Lymph % (Auto) [place] % (Auto) Eos % (Auto) Baso % (Auto) Lymph # (Auto) [place] # (Auto) Eos # (Auto) Baso # (Auto) Abs Immat Gran (auto) Absolute Neuts (auto) Absolute Nucleated RBC Nucleated RBC % (auto) VBG pH VBG pCO2 VBG pO2 VBG HCO3 VBG O2 Saturation VBG Base Excess Sodium 140 Potassium 4.4 Chloride 90 L Carbon Dioxide 41 H* Anion Gap 13 BUN 34 H Creatinine 0.83 Estim Creat Clear Calc 107.9 Estimated GFR > 60 POC Glucose 279 H Random Glucose 283 H Calcium 9.0 Phosphorus 4.3 Magnesium 2.2 Procalcitonin 0.03 02/14/23 02/14/23 02/15/23 19:36 23:31 05:17 WBC 7.4 RBC 3.91 L Hgb 10.0 L Hct 34.3 L MCV 87.7 MCH 25.6 L MCHC 29.2 L RDW 14.6 Plt Count 444 H MPV 9.7 Immature Gran % (Auto) 0.9 H Neut % (Auto) 86.2 H Lymph % (Auto) 5.3 L [place] % (Auto) 7.5 Eos % (Auto) 0.0 Baso % (Auto) 0.1 Lymph # (Auto) 0.4 L [place] # (Auto) 0.6 Eos # (Auto) 0.0 Baso # (Auto) 0.0 Abs Immat Gran (auto) 0.07 H Absolute Neuts (auto) 6.4 Absolute Nucleated RBC 0.000 Nucleated RBC % (auto) 0.0 VBG pH 7.45 H VBG pCO2 71 VBG pO2 56 VBG HCO3 50 H VBG O2 Saturation 84.0 VBG Base Excess 22.0 Sodium 140 Potassium 4.3 Chloride 88 L Carbon Dioxide 44 H* Anion Gap 12 BUN 32 H Creatinine 0.94 Estim Creat Clear Calc 95.3 Estimated GFR > 60 POC Glucose 286 H 299 H Random Glucose 290 H Calcium 9.2 Phosphorus 4.1 Magnesium 2.0 Procalcitonin 02/15/23 02/15/23 07:53 12:05 WBC RBC Hgb Hct MCV MCH MCHC RDW Plt Count MPV Immature Gran % (Auto) Neut % (Auto) Lymph % (Auto) [place] % (Auto) Eos % (Auto) Baso % (Auto) Lymph # (Auto) [place] # (Auto) Eos # (Auto) Baso # (Auto) Abs Immat Gran (auto) Absolute Neuts (auto) Absolute Nucleated RBC Nucleated RBC % (auto) VBG pH VBG pCO2 VBG pO2 VBG HCO3 VBG O2 Saturation VBG Base Excess Sodium Potassium Chloride Carbon Dioxide Anion Gap BUN Creatinine Estim Creat Clear Calc Estimated GFR POC Glucose 267 H 522 H* Random Glucose Calcium Phosphorus Magnesium Procalcitonin Microbiology Microbiology Results: Microbiology 02/11/23 18:04 Blood - Venous Blood Culture - Preliminary No growth after 48 hours. 02/11/23 18:04 Blood - Venous Blood Culture - Preliminary No growth after 48 hours. Progress Note: A&P Assessment and plan (1) Atrial fibrillation, new onset: Status: Acute (2) COVID-19: Status: Acute (3) Diabetes mellitus: Status: Acute (4) Acute on chronic respiratory failure with hypoxemia: Status: Acute (5) COPD exacerbation: Status: Acute (6) CHF exacerbation: Status: Acute (7) Acute and chronic respiratory failure with hypercapnia: Status: Resolved Plan 62 Y F with morbid obesity, c/b p/t ED on 02/11 w/ dyspnea x3 days, found to be COVID positive; hospital course c/b worsening acute/chronic respiratory failure, necessitating non-invasive positive pressure ventilation, new-onset atrial fibrillation N: intermittently encephalopathy d/t hypercarbia, which improves on AVAPS; to trial high-flow nasal cannula AM CV: new-onset atrial fibrillation, though maintaining blood pressure; diltiazem PO; CHF exacerbation, to continue diuresis w/ furosemide gtt R: acute/chronic mixed respiratory failure, likely multifactorial, d/t CHF, COPD, and COVID; HFNC AM, AVAPS PM; to continue diuresis, duonebs, dexamethasone total 10 day course, and remdesivir total 5 day course GI: nutrition: clear liquid diet when not on AVAPS; to repeat speech/swallow evaluation : function: at baseline; electrolytes: to monitor closely on furosemide gtt; volume: I/O goal net negative ID: COVID, c/f pneumonia, dexamethasone, remdesivir; appreciate infectious disease recommendations H: new-onset atrial fibrillation, started on epixaban this admission E: diabetes, c/b hyperglycemia; insulin sliding scale Quality Stroke Does the patient have a stroke diagnosis?: No VTE Prior VTE?: No VTE Risk Level:: Medical - moderate - high VTE Device Contraindication: Treatment Not Indicated VTE Drug Contraindication: N/A - Med Ordered
--- NOTE | 2023-02-15 14:11 | MHC.SL.SWA ---
Speech Pathologist Impression: Risk of aspiration Dysphasia Diet Status: Clear liquid diet. No liquids by straw please. Liquid Consistency and Strategies for Safe Swallow: Liquid Intake Recommendation: Thin Solid Food Consistency: Dietary Recommendations: clear liquid Additional Modifications to Solid Foods: Assure patient is adequately awake and alert before giving anything PO. Oral Medication Intake: Whole with Liquid Please contact the pharmacy regarding appropriate crushable or liquid drug formulations that are available whenever modified delivery is recommended. Compensatory Strategies and Precautions to be Taken for Safe Swallow: Sitting Upright (90 deg) No Straw Liquids from Cup Liquids from Spoon Small Bites and Sips Rate of Ingestion Change Supervision While Eating and Drinking for Safe Swallow: Total Assistance (1:1) Swallowing Recommended Treatments: Compens. Strategy Educat. Recommendation for Speech: Further Testing Needed Inpatient Speech Therapy Online Services Manager Clinican/Clinical Fellow: No Supervisory Statement: I have reviewed and agree with the student/clinical fellow's documentation: No Speech Language Pathologist: Zelda De Santiago M.A., CCC-BROADCAST TRAFFIC COORDINATOR
[2023-02-15 14:18] LABS: Glucose, Whole Blood 384 mg/dL (60-115)
[2023-02-15] MEDS: Remdesivir 100 MG in 0.9 % Sodium Chloride 230 ML 115 MG IV (16:34)
[2023-02-15] MEDS: Furosemide 200 MG in 0.9 % Sodium Chloride 80 ML IVCONT (17:56)
[2023-02-15 18:07] LABS: Glucose, Whole Blood 226 mg/dL (60-115)
[2023-02-15 18:26] LABS: Anion Gap 13 (12-20); Blood Urea Nitrogen 31 mg/dL (9-16); Calcium 9.3 mg/dL (8.4-10.2); Carbon Dioxide 44 mmol/L (22-29); Chloride 88 mmol/L (96-108); Creatinine Clr Calc Pharmacy 104.1; Estimated Glomerular Filt Rate > 60; Glucose Random 250 mg/dL (60-115); Magnesium 1.9 mg/dL (1.6-2.6); Phosphorus 2.9 mg/dL (2.7-4.5); Potassium 3.7 mmol/L (3.3-5.1); Sodium 141 mmol/L (135-145)
[2023-02-15] MEDS: Atorvastatin Calcium 80 MG TABLET PO (20:28)
[2023-02-15 20:44] LABS: Glucose, Whole Blood 245 mg/dL (60-115)
[2023-02-16] VITALS (31 sets, daily range): BP systolic 107–155; BP diastolic 53–92; PULSE 74–97; RESP 10–21; TEMP 36.9–37.4; O2SAT 90–98; BMI 61.1
[2023-02-16] MEDS: 0.9 % Sodium Chloride Flush 3 ML SYRINGE IVFLUSH ×3 (00:33→18:46)
--- NOTE | 2023-02-16 04:51 | PC.NURSE ---
ASSUMED CARE OF PT AT 1900. PT AWAKE AND FOLLOWING COMMANDS. ON HIGH FLOW O2 AT THIS TIME BUT PUT ON BIPAP FACEMASK AT 1999 BY RESP THERAPIST. TOLERATES BIPAP WELL. NO RESP DISTRESS. O2 SATS >96% AND FIO2 DECREASED FROM 65% TO 50%. OO2 SATS REMAINED ABOVE 95%. MONITOR SHOWS AFIB, RATE 70'S-80'S, NO ECTOPY SEEN. LASIX DRIP CONTINUES AT 5MG/HR. U/O 200-300ML/HR. BP STABLE, 125/77. HELPS TO TURN SELF SIDE TO SIDE BUT NEEDS AT LEAST 1 ASSIST. SKIN IS INTACT. SMALL FOAM DSG D&I RT GROIN. POC 226 AND LISPRO GIVEN PER SLIDING SCALE. PT REFUSED INSULIN AT FIRST. PROVIDER WENT IN TO SEE PT AND EXPLAINED THE NEED FOR INSULIN TO PT IN [place] AND THEN PT AGREED TO TAKE THE MED. PT SLEPT MOSTLY IN NAPS DURING THE NIGHT. DENIES COMPLAINTS.
[2023-02-16 05:31] LABS: VBG HCO3 53 mmol/L (22-26); VBG pCO2 70 mmHg; VBG pH 7.48 (7.32-7.43); VBG pO2 76 mmHg
[2023-02-16 05:46] LABS: MANUAL DIFF FLAG NO
[2023-02-16 05:52] LABS: Basophils Percent Auto 0.3 % (0-2); Hematocrit 37.4 % (37.0-47.0); Hemoglobin 11.4 g/dl (12.0-16.0); Imm Gran Abs Auto 0.09 X10*3/uL (0.00-0.03); Imm Gran Pct Auto 1.1 % (0.0-0.4); Lymphocytes Absolute Auto 0.7 X10*3/uL (1.2-4.9); Lymphocytes Percent Auto 8.8 % (20-40); Mean Corpuscular HGB Conc 30.5 g/dl (31.0-35.0); Mean Corpuscular Hemoglobin 26.3 pg (27.0-33.0); Mean Corpuscular Volume 86.4 fL (80.0-98.0); Mean Platelet Volume 9.7 fL (9.4-12.3); Monocytes Absolute Auto 0.9 X10*3/uL (0.1-1.2); Monocytes Percent Auto 10.7 % (2-11); Neutrophils Absolute Auto 6.3 x10*3/uL (2.0-8.3); Neutrophils Percent Auto 79.1 % (45-73); Platelet Count 469 X10*3/uL (160-400); Red Blood Count 4.33 X10*6/uL (4.20-5.50); Red Cell Distribution Width 14.2 % (11.0-16.0); White Blood Count 7.9 X10*3/uL (4.8-10.8)
[2023-02-16 06:02] LABS: Venous Blood Gas Refer to POC result
[2023-02-16 06:07] LABS: Anion Gap 14 (12-20); Blood Urea Nitrogen 31 mg/dL (9-16); Calcium 9.8 mg/dL (8.4-10.2); Carbon Dioxide 39 mmol/L (22-29); Chloride 92 mmol/L (96-108); Creatinine Clr Calc Pharmacy 101.7; Estimated Glomerular Filt Rate > 60; Glucose Random 241 mg/dL (60-115); Magnesium 2.1 mg/dL (1.6-2.6); Phosphorus 3.6 mg/dL (2.7-4.5); Potassium 3.8 mmol/L (3.3-5.1); Sodium 141 mmol/L (135-145)
[2023-02-16] MEDS: acetaZOLAMIDE sodium 500 MG VIAL IVPUSH ×2 (07:37→18:44)
[2023-02-16] MEDS: Insulin Lispro 100 UNIT/ML 3 ML VIAL SUBCUT ×3 (07:37→20:20)
[2023-02-16 08:04] LABS: Glucose, Whole Blood 255 mg/dL (60-115)
[2023-02-16] MEDS: Albuterol/Iprat 2.5/0.5MG 3 ML AMPUL.NEB INHALE ×4 (08:22→21:58)
[2023-02-16] MEDS: dilTIAZem HCL 30 MG TABLET 90 MG PO ×4 (08:23→21:40)
[2023-02-16] MEDS: dexAMETHasone 6 MG TABLET PO (08:23)
[2023-02-16] MEDS: Apixaban 5 MG TABLET PO ×2 (08:23→20:19)
[2023-02-16] MEDS: amLODIPine Besylate 10 MG TABLET PO (08:23)
[2023-02-16] MEDS: Insulin Glargine,Hum.rec.anlog 100 UNIT/ML 10 ML VIAL 10 UNIT SUBCUT (08:24)
--- NOTE | 2023-02-16 09:02 | PM.CCPN ---
Subjective Subjective Date of Service: 02/16/23 Interval History: no significant overnight events Critical Care Time (minutes): 90 Physical Exam Vital Signs: Vital Signs: Last Vital Signs Temp 99 F 02/16/23 08:00 Pulse 97 02/16/23 08:34 Resp 18 02/16/23 08:34 BP 155/62 H 02/16/23 08:00 Pulse Ox 94 02/16/23 08:00 O2 Del Method BiPAP 02/16/23 08:00 O2 Flow Rate 50 02/15/23 22:00 FiO2 50 02/16/23 08:00 Oxygen Flow Rate 50 02/13/23 08:00 BMI result Body Mass Index 61.1 Const: General: cooperative, healthy appearing, comfortable and no acute distress Limitations: language barrier HEENT: Head: Yes normal to inspection, Yes normocephalic and Yes atraumatic Eyes: General: appearance normal, both eyes and all related structures Pupils: Equal, round and reactive pupils present Neck: Neck: Yes normal visual inspection and Yes supple Chest: Chest palpation & inspection: normal inspection of the chest Resp: Other: diminished breath sounds throughout; unable to appreciable rales, rhonchi, nor wheezing Cardio: Rhythm: abnormal rhythm GI: Inspection: Yes normal to inspection, No distended and Yes obesity Palpation (GI): Soft to palpation, not firm, nontender, no guarding and not rigid Skin: General skin exam: no rashes or lesions noted Neuro: Cranial nerves: Yes Equal, round and reactive pupils present Extrem: Other: 2+ pitting edema to bilateral knees Psych: Appearance: grossly normal Objective Data Labs 02/16/23 05:35 02/16/23 05:35 Labs: Laboratory Results - last 24 hr 02/15/23 02/15/23 02/15/23 12:05 14:12 17:53 WBC RBC Hgb Hct MCV MCH MCHC RDW Plt Count MPV Immature Gran % (Auto) Neut % (Auto) Lymph % (Auto) [place] % (Auto) Eos % (Auto) Baso % (Auto) Lymph # (Auto) [place] # (Auto) Eos # (Auto) Baso # (Auto) Abs Immat Gran (auto) Absolute Neuts (auto) Absolute Nucleated RBC Nucleated RBC % (auto) VBG pH VBG pCO2 VBG pO2 VBG HCO3 VBG O2 Saturation VBG Base Excess Sodium Potassium Chloride Carbon Dioxide Anion Gap BUN Creatinine Estim Creat Clear Calc Estimated GFR POC Glucose 522 H* 384 H* 226 H Random Glucose Calcium Phosphorus Magnesium 02/15/23 02/15/23 02/16/23 18:00 20:37 05:26 WBC RBC Hgb Hct MCV MCH MCHC RDW Plt Count MPV Immature Gran % (Auto) Neut % (Auto) Lymph % (Auto) [place] % (Auto) Eos % (Auto) Baso % (Auto) Lymph # (Auto) [place] # (Auto) Eos # (Auto) Baso # (Auto) Abs Immat Gran (auto) Absolute Neuts (auto) Absolute Nucleated RBC Nucleated RBC % (auto) VBG pH 7.48 H VBG pCO2 70 VBG pO2 76 VBG HCO3 53 H VBG O2 Saturation 93.0 VBG Base Excess 25.0 Sodium 141 Potassium 3.7 Chloride 88 L Carbon Dioxide 44 H* Anion Gap 13 BUN 31 H Creatinine 0.86 Estim Creat Clear Calc 104.1 Estimated GFR > 60 POC Glucose 245 H Random Glucose 250 H Calcium 9.3 Phosphorus 2.9 Magnesium 1.9 02/16/23 02/16/23 05:35 07:26 WBC 7.9 RBC 4.33 Hgb 11.4 L Hct 37.4 MCV 86.4 MCH 26.3 L MCHC 30.5 L RDW 14.2 Plt Count 469 H MPV 9.7 Immature Gran % (Auto) 1.1 H Neut % (Auto) 79.1 H Lymph % (Auto) 8.8 L [place] % (Auto) 10.7 Eos % (Auto) 0.0 Baso % (Auto) 0.3 Lymph # (Auto) 0.7 L [place] # (Auto) 0.9 Eos # (Auto) 0.0 Baso # (Auto) 0.0 Abs Immat Gran (auto) 0.09 H Absolute Neuts (auto) 6.3 Absolute Nucleated RBC 0.000 Nucleated RBC % (auto) 0.0 VBG pH VBG pCO2 VBG pO2 VBG HCO3 VBG O2 Saturation VBG Base Excess Sodium 141 Potassium 3.8 Chloride 92 L Carbon Dioxide 39 H Anion Gap 14 BUN 31 H Creatinine 0.88 Estim Creat Clear Calc 101.7 Estimated GFR > 60 POC Glucose 255 H Random Glucose 241 H Calcium 9.8 Phosphorus 3.6 Magnesium 2.1 Microbiology Microbiology Results: Microbiology 02/11/23 18:04 Blood - Venous Blood Culture - Preliminary No growth after 48 hours. 02/11/23 18:04 Blood - Venous Blood Culture - Preliminary No growth after 48 hours. Progress Note: A&P Assessment and plan (1) COVID-19: Status: Acute (2) Diabetes mellitus: Status: Acute (3) COPD exacerbation: Status: Acute (4) CHF exacerbation: Status: Acute (5) Acute on chronic respiratory failure with hypoxia and hypercapnia: Status: Resolved Plan 62 Y F with morbid obesity, c/b p/t ED on 02/11 w/ dyspnea x3 days, found to be COVID positive; hospital course c/b worsening acute/chronic respiratory failure, necessitating non-invasive positive pressure ventilation, new-onset atrial fibrillation N: intermittent encephalopathy d/t hypercarbia, which improves on AVAPS CV: new-onset atrial fibrillation, started on diltiazem PO this admission; c/f CHF exacerbation, to continue diuresis w/ furosemide gtt R: acute/chronic mixed respiratory failure, likely multifactorial, d/t CHF, COPD, and COVID; HFNC AM, AVAPS PM; to continue diuresis, duonebs, dexamethasone total 10 day course, and remdesivir total 5 day course GI: nutrition: clear liquid diet when not on AVAPS; to repeat speech/swallow evaluation in near future : function: at baseline; electrolytes: to monitor closely on furosemide gtt; volume: I/O goal net negative ID: COVID, c/f pneumonia, dexamethasone, remdesivir; appreciate infectious disease recommendations H: new-onset atrial fibrillation, started on epixaban this admission E: diabetes, c/b hyperglycemia; insulin sliding scale Quality Stroke Does the patient have a stroke diagnosis?: No VTE Prior VTE?: No VTE Risk Level:: Medical - moderate - high VTE Device Contraindication: Treatment Not Indicated VTE Drug Contraindication: N/A - Med Ordered
[2023-02-16 11:14] LABS: Glucose, Whole Blood 437 mg/dL (60-115)
[2023-02-16] MEDS: Insulin Regular, Human 100 UNIT/ML 3 ML VIAL 10 UNIT IVPUSH ×2 (11:32→13:32)
[2023-02-16 13:08] LABS: Glucose, Whole Blood 482 mg/dL (60-115)
[2023-02-16 15:12] LABS: Glucose, Whole Blood 458 mg/dL (60-115)
[2023-02-16 18:02] LABS: Anion Gap 14 (12-20); Blood Urea Nitrogen 34 mg/dL (9-16); Calcium 9.5 mg/dL (8.4-10.2); Carbon Dioxide 42 mmol/L (22-29); Chloride 88 mmol/L (96-108); Creatinine Clr Calc Pharmacy 82.9; Estimated Glomerular Filt Rate 55; Glucose Random 423 mg/dL (60-115); Potassium 3.5 mmol/L (3.3-5.1); Sodium 140 mmol/L (135-145)
[2023-02-16] MEDS: Furosemide 200 MG in 0.9 % Sodium Chloride 80 ML IVCONT (18:45)
[2023-02-16] MEDS: Remdesivir 100 MG in 0.9 % Sodium Chloride 230 ML 115 MG IV (18:45)
[2023-02-16 18:57] LABS: Anion Gap 17 (12-20); Blood Urea Nitrogen 33 mg/dL (9-16); Calcium 9.8 mg/dL (8.4-10.2); Carbon Dioxide 38 mmol/L (22-29); Chloride 89 mmol/L (96-108); Creatinine Clr Calc Pharmacy 86.3; Estimated Glomerular Filt Rate 58; Glucose Random 409 mg/dL (60-115); Magnesium 1.9 mg/dL (1.6-2.6); Phosphorus 3.6 mg/dL (2.7-4.5); Potassium 3.5 mmol/L (3.3-5.1); Sodium 140 mmol/L (135-145)
[2023-02-16 19:37] LABS: Glucose, Whole Blood 386 mg/dL (60-115)
[2023-02-16] MEDS: Insulin Glargine,Hum.rec.anlog 100 UNIT/ML 10 ML VIAL 30 UNIT SUBCUT (20:19)
[2023-02-16] MEDS: Atorvastatin Calcium 80 MG TABLET PO (20:19)
[2023-02-17] VITALS (31 sets, daily range): BP systolic 96–143; BP diastolic 66–90; PULSE 67–95; RESP 12–22; TEMP 36.9–37.3; O2SAT 81–98; BMI 59.6
[2023-02-17 00:05] LABS: Glucose, Whole Blood 280 mg/dL (60-115)
[2023-02-17 05:13] LABS: VBG Base Excess 18.5 mmol/L; VBG HCO3 46 mmol/L (22-26); VBG pCO2 64 mmHg; VBG pH 7.46 (7.32-7.43); VBG pO2 76 mmHg
[2023-02-17 05:22] LABS: Venous Blood Gas Refer to POC result
[2023-02-17 05:45] LABS: Anion Gap 14 (12-20); Blood Urea Nitrogen 33 mg/dL (9-16); Calcium 10.1 mg/dL (8.4-10.2); Carbon Dioxide 40 mmol/L (22-29); Chloride 91 mmol/L (96-108); Estimated Glomerular Filt Rate > 60; Glucose Random 296 mg/dL (60-115); Magnesium 1.9 mg/dL (1.6-2.6); Phosphorus 4.1 mg/dL (2.7-4.5); Potassium 3.3 mmol/L (3.3-5.1); Sodium 142 mmol/L (135-145)
[2023-02-17 07:27] LABS: Glucose, Whole Blood 247 mg/dL (60-115)
[2023-02-17] MEDS: 0.9 % Sodium Chloride Flush 3 ML SYRINGE IVFLUSH ×3 (07:33→22:49)
[2023-02-17] MEDS: acetaZOLAMIDE sodium 500 MG VIAL IVPUSH ×2 (07:33→21:30)
[2023-02-17] MEDS: Insulin Lispro 100 UNIT/ML 3 ML VIAL SUBCUT ×3 (07:33→21:59)
[2023-02-17] MEDS: Insulin Lispro 100 UNIT/ML 3 ML VIAL 6 UNIT SUBCUT ×3 (07:33→16:32)
[2023-02-17] MEDS: Albuterol/Iprat 2.5/0.5MG 3 ML AMPUL.NEB INHALE ×4 (08:03→19:16)
[2023-02-17] MEDS: dexAMETHasone 6 MG TABLET PO (09:03)
[2023-02-17] MEDS: amLODIPine Besylate 10 MG TABLET PO (09:03)
[2023-02-17] MEDS: dilTIAZem HCL 30 MG TABLET 90 MG PO ×4 (09:04→21:30)
[2023-02-17] MEDS: Apixaban 5 MG TABLET PO ×2 (09:04→21:31)
--- NOTE | 2023-02-17 10:17 | P.PNCC_ITS ---
Subjective Subjective Date of Service: 02/17/23 Interval History: no significant overnight events; better glycemic control Critical Care Time (minutes): 90 Physical Exam 2 Vital Signs: Vital Signs: Last Vital Signs Temp 99.1 F 02/17/23 10:00 Pulse 86 02/17/23 10:00 Resp 14 02/17/23 10:00 BP 121/90 H 02/17/23 10:00 Pulse Ox 93 02/17/23 10:00 O2 Del Method High Flow Nasal C annula 02/17/23 10:00 O2 Flow Rate 35 02/17/23 10:00 FiO2 40 02/17/23 10:00 Oxygen Flow Rate 50 02/13/23 08:00 BMI result Body Mass Index 59.6 Const: Other: morbidly obese General: cooperative, healthy appearing, comfortable and no acute distress Orientation/consciousness: patient oriented x3 HEENT: Head: Yes normal to inspection, Yes normocephalic and Yes atraumatic Eyes: General: appearance normal, both eyes and all related structures P upils: Equal, round and reactive pupils present Neck: Neck: Yes normal visual inspection Chest: Chest palpation & inspection: normal inspection of the chest Resp: Other: decreased breath sounds throughout; no overt rales, rhonchi, wheezing Effort & Inspection: normal respiratory effort Cardio: Other: decreased heart sounds throughout GI: Inspection: Yes normal to inspection and No distended Palpation (GI): S oft to palpation, not firm, nontender, no guarding and not rigid Skin: General skin exam: no rashes or lesions noted Neuro: General: patient oriented x3 Cranial nerves: Yes Equal, round and reactive pupils present Extrem: Other: 2+ pitting edema to bilateral knees Psych: Appearance: grossly normal Objective Data Labs 02/16/23 05:35 02/17/23 04:59 Labs: Laboratory Results - last 24 hr 02/16/23 02/16/23 02/16/23 11:11 13:05 15:07 VBG pH VBG pCO2 VBG pO2 VBG HCO3 VBG O2 Saturation VBG Base Excess Sodium Potassium Chloride Carbon Dioxide Anion Gap BUN Creatinine Estim Creat Clear Calc Estimated GFR POC Glucose 437 H* 482 H* 458 H* Random Glucose Calcium Phosphorus Magnesium 02/16/23 02/16/23 02/16/23 16:40 18:11 19:30 VBG pH VBG pCO2 VBG pO2 VBG HCO3 VBG O2 Saturation VBG Base Excess Sodium 140 140 Potassium 3.5 3.5 Chloride 88 L 89 L Carbon Dioxide 42 H* 38 H Anion Gap 14 17 BUN 34 H 33 H Creatinine 1.02 0.98 Estim Creat Clear Calc 82.9 86.3 Estimated GFR 55 58 POC Glucose 386 H* Random Glucose 423 H* 409 H* Calcium 9.5 9.8 Phosphorus 3.6 Magnesium 1.9 02/16/23 02/17/23 02/17/23 23:58 04:59 05:07 VBG pH 7.46 H VBG pCO2 64 VBG pO2 76 VBG HCO3 46 H VBG O2 Saturation 93.0 VBG Base Excess 18.5 Sodium 142 Potassium 3.3 Chloride 91 L Carbon Dioxide 40 H* Anion Gap 14 BUN 33 H Creatinine 0.93 Estim Creat Clear Calc 91.0 Estimated GFR > 60 POC Glucose 280 H Random Glucose 296 H Calcium 10.1 Phosphorus 4.1 Magnesium 1.9 02/17/23 07:23 VBG pH VBG pCO2 VBG pO2 VBG HCO3 VBG O2 Saturation VBG Base Excess Sodium Potassium Chloride Carbon Dioxide Anion Gap BUN Creatinine Estim Creat Clear Calc Estimated GFR POC Glucose 247 H Random Glucose Calcium Phosphorus Magnesium Microbiology Microbiology Results: Microbiology 02/11/23 18:04 Blood - Venous Blood Culture - Final No growth after 5 days. 02/11/23 18:04 Blood - Venous Blood Culture - Final No growth after 5 days. Progress Note: A&P Assessment and plan (1) Atrial fibrillation, new onset: Status: Acute (2) Diabetes mellitus: Status: Acute (3) Acute on chronic respiratory failure with hypoxemia: Status: Acute (4) COPD exacerbation: Status: Acute (5) CHF exacerbation: Status: Acute Plan 62 Y F with morbid obesity, c/b p/t ED on 02/11 w/ dyspnea x3 days, found to be COVID positive; hospital course c/b worsening acute/chronic respiratory failure, necessitating non-invasive positive pressure ventilation, new-onset atrial fibrillation N: intermittent encephalopathy d/t hypercarbia, which improves on AVAPS CV: new-onset atrial fibrillation, started on diltiazem PO this admission; c/f CHF exacerbation, to continue diuresis w/ furosemide gtt R: acute/chronic mixed respiratory failure, likely multifactorial, d/t CHF, COPD, and COVID; HFNC AM, AVAPS PM; s/p remdesivir, total 5 day course; to continue diuresis, duonebs, dexamethasone total 10 day course GI: nutrition: clear liquid diet when not on AVAPS; to repeat speech/swallow evaluation in near future : function: at baseline; electrolytes: to monitor closely on furosemide gtt; volume: I/O goal net negative ID: COVID, c/f pneumonia, s/p remdesivir, on dexamethasone; appreciate infectious disease recommendations H: new-onset atrial fibrillation, started on epixaban this admission E: diabetes, c/b hyperglycemia, insulin SQ regimen Quality Stroke Does the patient have a stroke diagnosis?: No VTE Prior VTE?: No VTE Risk Level:: Medical - moderate - high VTE Device Contraindication: Treatment Not Indicated VTE Drug Contraindication: N/A - Med Ordered
[2023-02-17 11:14] LABS: Glucose, Whole Blood 185 mg/dL (60-115)
[2023-02-17 16:31] LABS: Glucose, Whole Blood 395 mg/dL (60-115)
[2023-02-17] MEDS: Furosemide 200 MG in 0.9 % Sodium Chloride 80 ML IVCONT (16:31)
[2023-02-17] MEDS: Atorvastatin Calcium 80 MG TABLET PO (21:31)
[2023-02-17] MEDS: Insulin Glargine,Hum.rec.anlog 100 UNIT/ML 10 ML VIAL 30 UNIT SUBCUT (21:31)
[2023-02-17 21:48] LABS: Glucose, Whole Blood 390 mg/dL (60-115)
[2023-02-17] MEDS: Insulin Glargine,Hum.rec.anlog 100 UNIT/ML 10 ML VIAL 10 UNIT SUBCUT (22:37)
[2023-02-18] VITALS (25 sets, daily range): BP systolic 110–141; BP diastolic 61–92; PULSE 64–97; RESP 12–20; TEMP 36–37; O2SAT 91–99; BMI 59.1
[2023-02-18 05:22] LABS: VBG Base Excess 17.3 mmol/L; VBG HCO3 44 mmol/L (22-26); VBG pCO2 60 mmHg; VBG pH 7.47 (7.32-7.43); VBG pO2 52 mmHg
[2023-02-18 05:24] LABS: MANUAL DIFF FLAG NO; Venous Blood Gas Refer to POC result
[2023-02-18 05:34] LABS: Basophils Percent Auto 0.1 % (0-2); Hematocrit 39.6 % (37.0-47.0); Hemoglobin 12.5 g/dl (12.0-16.0); Imm Gran Abs Auto 0.09 X10*3/uL (0.00-0.03); Imm Gran Pct Auto 0.9 % (0.0-0.4); Lymphocytes Absolute Auto 0.8 X10*3/uL (1.2-4.9); Mean Corpuscular HGB Conc 31.6 g/dl (31.0-35.0); Mean Corpuscular Hemoglobin 25.7 pg (27.0-33.0); Mean Corpuscular Volume 81.3 fL (80.0-98.0); Mean Platelet Volume 9.1 fL (9.4-12.3); Monocytes Absolute Auto 0.8 X10*3/uL (0.1-1.2); Monocytes Percent Auto 7.6 % (2-11); Neutrophils Absolute Auto 8.4 x10*3/uL (2.0-8.3); Neutrophils Percent Auto 83.4 % (45-73); Platelet Count 505 X10*3/uL (160-400); Red Blood Count 4.87 X10*6/uL (4.20-5.50); Red Cell Distribution Width 14.2 % (11.0-16.0); White Blood Count 10.1 X10*3/uL (4.8-10.8)
[2023-02-18 05:44] LABS: Alanine Aminotransferase 22 U/L (0-31); Albumin Level 3.7 g/dL (3.5-5.0); Alkaline Phosphatase 102 U/L (39-117); Anion Gap 14 (12-20); Aspartate Amino Transferase 11 U/L (5-31); Bilirubin Total 0.7 mg/dL (0.0-1.0); Blood Urea Nitrogen 34 mg/dL (9-16); Calcium 9.5 mg/dL (8.4-10.2); Carbon Dioxide 40 mmol/L (22-29); Chloride 92 mmol/L (96-108); Creatinine Clr Calc Pharmacy 96.6; Estimated Glomerular Filt Rate > 60; Glucose Random 246 mg/dL (60-115); Potassium 3.2 mmol/L (3.3-5.1); Sodium 143 mmol/L (135-145); Total Protein 6.8 g/dL (6.5-8.0)
[2023-02-18 07:18] LABS: Glucose, Whole Blood 243 mg/dL (60-115)
[2023-02-18] MEDS: Albuterol/Iprat 2.5/0.5MG 3 ML AMPUL.NEB INHALE ×4 (07:44→18:55)
[2023-02-18] MEDS: Insulin Lispro 100 UNIT/ML 3 ML VIAL SUBCUT ×4 (08:01→21:39)
[2023-02-18] MEDS: Apixaban 5 MG TABLET PO ×2 (08:02→21:39)
[2023-02-18] MEDS: Lidocaine 4 % Patch ADH..PATCH 1 PATCH TRANSDERMA (08:02)
[2023-02-18] MEDS: dilTIAZem HCL 30 MG TABLET 90 MG PO ×4 (08:02→21:39)
[2023-02-18] MEDS: Insulin Lispro 100 UNIT/ML 3 ML VIAL 10 UNIT SUBCUT ×3 (08:02→16:59)
[2023-02-18] MEDS: 0.9 % Sodium Chloride Flush 3 ML SYRINGE IVFLUSH ×3 (08:03→21:40)
[2023-02-18] MEDS: dexAMETHasone 4 MG TABLET PO (08:15)
--- NOTE | 2023-02-18 09:21 | PC.NURSE ---
Addendum entered by Bridger Vazquez RN 02/18/23 14:00: Patients' heart rate was noted to rise to 150's a-fib on telemetry with standing and pivoting to recliner, spent four hours in recliner today. HR increased to 130's with return to bed, with associated dizziness, MD notified. Patient generally shows afib 80's-90's on telemetry Addendum entered by Bridger Vazquez RN 02/18/23 12:30: Patient wound appears to be smaller, about 1 cm x 1 cm x0.1 cm, cleaned, patted dry, re-dressed with foam dressing. Patient also seen by ROLL [employer]RIER, recommending chopped texture, diet advanced to diabetic diet with chopped texture, well tolerated. Addendum entered by Bridger Vazquez RN 02/18/23 10:26: MD notiified of diarrheal output, and continuing to monitor, likely secondary to liquid diet. Addendum entered by Bridger Vazquez RN 02/18/23 10:21: Patient incontinent of copious amount of liquid/loose/pasty brown stool. Complained of pain of left leg when standing, only able to sustain standing posture for 2 minutes before fatiguing and needing to sit. Original Note: Assumed care at 07:00. Patient alert, oriented x4, denies pain. Patient was on AVAPs settings on Bipap system overnight, and after discussion with MD, patietn transitioned to high flow oxygen 35%, 30 LPM, well tolerated, denies increased work of breathing. Patient SpO2 maintaining about 95%. Some Orthopnea, but otherwise improved respiratory effort, Incentive spirometry much better than a few days ago, volume of 1500 ccs, well tolerated. Patient with diminished LS throughout to auscultation, distant heart sounds. Denies nausea. Eating well with clear liquid diet. POC 243 and recieved 10 U lispro plus 3 U per sliding scale at breakfast. Patient denies pain, but did report burning sensation about Gorman catheter, and pleads to have it removed. Patient is no longer on IV lasix gtt, and no criteria for gorman are in effect, and Gorman catheter removed at 9 am, with due to void by 15:00. Patient tolerating purewick catheter at this time with plan to attempt commode later today. Discussed mobility status with MD and new order for PT eval and tx, and PT and OT in today and assisted patient to bariatric chair, patient was able to stand with walker and two assist and pivot to chair, and during this process, her heartrate accelerated to 159, continues to be in atrial fibrillation on telemetry, currently her rate is 85 BPM, and generally staying in 80's-90's. Her skin is intact except for a small MDPI in right upper groin from previous purewick catheter.
[2023-02-18 10:39] LABS: VBG Base Excess 13.6 mmol/L; VBG HCO3 39 mmol/L (22-26); VBG pCO2 51 mmHg; VBG pH 7.49 (7.32-7.43); VBG pO2 84 mmHg
[2023-02-18 10:50] LABS: Venous Blood Gas Refer to POC result
[2023-02-18 11:05] LABS: Glucose, Whole Blood 381 mg/dL (60-115)
[2023-02-18] MEDS: Insulin Glargine,Hum.rec.anlog 100 UNIT/ML 10 ML VIAL 30 UNIT SUBCUT ×2 (11:55→21:38)
[2023-02-18] MEDS: Potassium Chloride Packet 20 MEQ PACKET 40 MEQ PO (11:57)
--- NOTE | 2023-02-18 12:43 | MHC.SL.SWA ---
Speech Pathologist Impression: Risk of aspiration Dysphasia Diet Status: START on NDD3/THIN Liquid Consistency and Strategies for Safe Swallow: Liquid Intake Recommendation: Thin Liquid Intake Strategies: Small Sips No Straws Solid Food Consistency: Dietary Recommendations: Chopped/Advanced (NDD3) Additional Modifications to Solid Foods: Pt requires total 1:1 assistance feeding. Moisten food with sauces/gravies. Administer one bite at a time and ensure oral cavity is clear before presenting more bites. Alternate bites/sips to clear residuals. Oral Medication Intake: Whole with Liquid Please contact the pharmacy regarding appropriate crushable or liquid drug formulations that are available whenever modified delivery is recommended. Compensatory Strategies and Precautions to be Taken for Safe Swallow: Sitting Upright (90 deg) Double Swallow No Straw Liquids from Cup Liquids from Spoon Small Bites and Sips Rate of Ingestion Change Oral Check Avoid Specific Foods Supervision While Eating and Drinking for Safe Swallow: Total Assistance (1:1) Foods to Avoid: Hard, tough to chew solids; sticky textures Swallowing Recommended Treatments: Compens. Strategy Educat. Recommendation for Speech: Inpatient Speech Therapy Online Banking Specialist Clinican/Clinical Fellow: No Supervisory Statement: I have reviewed and agree with the student/clinical fellow's documentation: No Speech Language Pathologist: Zelda De Santiago M.A., CCC-CHIEF CONSOLE OPERATOR
--- NOTE | 2023-02-18 14:52 | P.PNCC_ITS ---
Subjective Subjective Date of Service: 02/18/23 Interval History: 62-year-old type 2 diabetic and morbidly obese individual with longstanding COPD and obesity/hypoventilation with intermittent COPD exacerbations on the basis of asthmatic bronchitis this time presented again with acute on chronic hypercarbic respiratory failure and was COVID positive was given remdesivir and has been on Decadron since but was also diuresed with IV Lasix drip along with IV acetazolamide to over 15 L in the last several days and I do believe that this was probably the biggest therapeutic benefit above above the remdesivir and the Decadron but she is now in the process of being weaned on the Decadron she is down to a 4 mg dose and that could be continued gradually today she is wheeze free pCO2 is in the 50s which is a little bit closer to her chronic state of affairs but she does have new onset of atrial fibrillation with a controlled rate currently on diltiazem and she is on apixaban so it would be hemodynamically beneficial for right ventricular function if she can eventually be cardioverted and she may require an anti rhythmic medicine for that and so possibly get card Cardiology involved with her Critical Care Time (minutes): 45 Physical Exam 2 Vital Signs: Vital Signs: Last Vital Signs Temp 98.2 F 02/18/23 12:00 Pulse 76 02/18/23 14:00 Resp 20 02/18/23 14:00 BP 138/83 02/18/23 14:00 Pulse Ox 95 02/18/23 14:00 O2 Del Method High Flow Nasal C annula 02/18/23 14:00 O2 Flow Rate 30 02/18/23 14:00 FiO2 30 02/18/23 14:00 Oxygen Flow Rate 50 02/13/23 08:00 BMI result Body Mass Index 59.1 No respiratory distress and no accessory muscle use and no diaphragmatic effort No adventitious sounds Controlled a fib and with most recent bedside echo with preserved LV function Abdomen soft with no organomegaly Objective Data Labs 02/18/23 05:18 02/18/23 05:18 Labs: Laboratory Results - last 24 hr 02/17/23 02/17/23 02/18/23 16:27 21:35 05:18 WBC 10.1 RBC 4.87 Hgb 12.5 Hct 39.6 MCV 81.3 D MCH 25.7 L MCHC 31.6 RDW 14.2 Plt Count 505 H MPV 9.1 L Immature Gran % (Auto) 0.9 H Neut % (Auto) 83.4 H Lymph % (Auto) 8.0 L [place] % (Auto) 7.6 Eos % (Auto) 0.0 Baso % (Auto) 0.1 Lymph # (Auto) 0.8 L [place] # (Auto) 0.8 Eos # (Auto) 0.0 Baso # (Auto) 0.0 Abs Immat Gran (auto) 0.09 H Absolute Neuts (auto) 8.4 H Absolute Nucleated RBC 0.000 Nucleated RBC % (auto) 0.0 VBG pH 7.47 H VBG pCO2 60 VBG pO2 52 VBG HCO3 44 H VBG O2 Saturation 78.0 VBG Base Excess 17.3 Sodium 143 Potassium 3.2 L Chloride 92 L Carbon Dioxide 40 H* Anion Gap 14 BUN 34 H Creatinine 0.86 Estim Creat Clear Calc 96.6 Estimated GFR > 60 POC Glucose 395 H* 390 H* Random Glucose 246 H Calcium 9.5 Total Bilirubin 0.7 AST 11 ALT 22 Alkaline Phosphatase 102 Total Protein 6.8 Albumin 3.7 02/18/23 02/18/23 02/18/23 07:11 10:34 10:58 WBC RBC Hgb Hct MCV MCH MCHC RDW Plt Count MPV Immature Gran % (Auto) Neut % (Auto) Lymph % (Auto) [place] % (Auto) Eos % (Auto) Baso % (Auto) Lymph # (Auto) [place] # (Auto) Eos # (Auto) Baso # (Auto) Abs Immat Gran (auto) Absolute Neuts (auto) Absolute Nucleated RBC Nucleated RBC % (auto) VBG pH 7.49 H VBG pCO2 51 VBG pO2 84 VBG HCO3 39 H VBG O2 Saturation 98.0 VBG Base Excess 13.6 Sodium Potassium Chloride Carbon Dioxide Anion Gap BUN Creatinine Estim Creat Clear Calc Estimated GFR POC Glucose 243 H 381 H* Random Glucose Calcium Total Bilirubin AST ALT Alkaline Phosphatase Total Protein Albumin Microbiology Microbiology Results: Microbiology 02/11/23 18:04 Blood - Venous Blood Culture - Final No growth after 5 days. 02/11/23 18:04 Blood - Venous Blood Culture - Final No growth after 5 days. Progress Note: A&P Assessment and plan (1) Hypomagnesemia: Status: Acute (2) Atrial fibrillation, new onset: Status: Acute (3) COVID-19: Status: Acute (4) Diabetes mellitus: Status: Acute (5) Acute on chronic respiratory failure with hypoxemia: Status: Acute (6) Hypercapnia: Status: Acute (7) COPD exacerbation: Status: Acute (8) CHF exacerbation: Status: Acute (9) Cor pulmonale (chronic): Status: Acute (10) Acute cor pulmonale: Status: Acute Plan Home at this point she is sustaining herself by day on the nasal high-flow which can be weaned gradually as well as the gradual weaning of the Decadron and placed on oral maintenance diuretic therapy probably to include a combination of acetazolamide and Lasix and spironolactone maintain anticoagulation with apixaban and heart rate control in atrial fibrillation with diltiazem and consult Cardiology for a ventral cardioversion because as recently as January she was in normal sinus rhythm this would be a mechanical advantage for her chronic cor pulmonale and possibly an anti rhythmic can be chosen I stopped her amlodipine because she is now on diltiazem both for rate control and blood pressure Quality Stroke Does the patient have a stroke diagnosis?: No VTE Prior VTE?: No VTE Risk Level:: Medical - moderate - high VTE Device Contraindication: Treatment Not Indicated VTE Drug Contraindication: N/A - Med Ordered
[2023-02-18 16:55] LABS: Glucose, Whole Blood 292 mg/dL (60-115)
[2023-02-18 20:53] LABS: Glucose, Whole Blood 300 mg/dL (60-115)
[2023-02-18] MEDS: Atorvastatin Calcium 80 MG TABLET PO (21:39)
[2023-02-19] VITALS (12 sets, daily range): BP systolic 119–155; BP diastolic 72–92; PULSE 71–91; RESP 18–20; TEMP 36.1–36.7; O2SAT 95–100; BMI 56.3
[2023-02-19 07:50] LABS: Glucose, Whole Blood 170 mg/dL (60-115)
[2023-02-19] MEDS: Acetaminophen 325 MG TABLET 650 MG PO (08:03)
[2023-02-19] MEDS: dilTIAZem HCL 30 MG TABLET 90 MG PO ×4 (08:03→21:56)
[2023-02-19] MEDS: acetaZOLAMIDE 250 MG TABLET PO (08:03)
[2023-02-19] MEDS: Spironolactone 25 MG TABLET PO (08:03)
[2023-02-19] MEDS: Apixaban 5 MG TABLET PO ×2 (08:03→21:55)
[2023-02-19] MEDS: Furosemide 40 MG TABLET PO (08:03)
[2023-02-19] MEDS: dexAMETHasone 4 MG TABLET PO (08:03)
[2023-02-19] MEDS: 0.9 % Sodium Chloride Flush 3 ML SYRINGE IVFLUSH ×3 (08:03→21:57)
[2023-02-19] MEDS: Insulin Lispro 100 UNIT/ML 3 ML VIAL SUBCUT ×4 (08:04→21:55)
[2023-02-19] MEDS: Insulin Glargine,Hum.rec.anlog 100 UNIT/ML 10 ML VIAL 30 UNIT SUBCUT ×2 (08:04→21:54)
[2023-02-19] MEDS: Lidocaine 4 % Patch ADH..PATCH 1 PATCH TRANSDERMA (08:04)
[2023-02-19] MEDS: Insulin Lispro 100 UNIT/ML 3 ML VIAL 10 UNIT SUBCUT ×3 (08:04→16:40)
[2023-02-19 08:44] LABS: VBG Base Excess 17.5 mmol/L; VBG HCO3 41 mmol/L (22-26); VBG pCO2 46 mmHg; VBG pH 7.56 (7.32-7.43); VBG pO2 67 mmHg
[2023-02-19 08:44] LABS: Venous Blood Gas Refer to POC result
[2023-02-19 08:56] LABS: Anion Gap 14 (12-20); Blood Urea Nitrogen 31 mg/dL (9-16); Calcium 9.8 mg/dL (8.4-10.2); Carbon Dioxide 34 mmol/L (22-29); Chloride 97 mmol/L (96-108); Creatinine Clr Calc Pharmacy 97.7; Estimated Glomerular Filt Rate > 60; Glucose Random 217 mg/dL (60-115); Magnesium 2.2 mg/dL (1.6-2.6); Potassium 3.2 mmol/L (3.3-5.1); Sodium 142 mmol/L (135-145)
--- NOTE | 2023-02-19 10:02 | MHC.CM.PN ---
Pt to be transferred out of ICU to IM for continued respiratory management secondary to COVID infection. D/C plan is for a return to home w/her ex spouse and existing [employer] , [employer] and [employer]. Family to transport
--- NOTE | 2023-02-19 11:15 | HO.PM.IMPN ---
Subjective Subjective Date of Service: 02/19/23 Interval History: This history was taken in Bengali from the patient. Remains in rate-controlled AF. Breathing improved. Minimal leg swelling. No chest pain. No palpitations. Review of Systems Review of Systems: Yes all other systems are reviewed and are negative Physical Exam Vital Signs: Vital Signs: Last Vital Signs Temp 97.4 F 02/19/23 07:52 Pulse 83 02/19/23 07:52 Resp 18 02/19/23 08:23 BP 119/83 02/19/23 07:52 Pulse Ox 98 02/19/23 07:52 O2 Del Method CPAP 02/19/23 07:52 O2 Flow Rate 30.9 02/18/23 20:00 FiO2 35 02/19/23 07:52 Oxygen Flow Rate 50 02/13/23 08:00 BMI result Body Mass Index 56.3 Gen: in no acute distress HEENT: sclera anicteric, moist mucus membranes Neck: supple Lungs: diminished Heart: regular rate and rhythm, no murmurs Abd: soft, non-tender, non-distended, morbidly obese Ext: 1+ edema bilateral legs Skin: warm/well-perfused Neuro: alert and oriented x3, no focal findings Psych: appropriate affect Objective Data Active Medications Acetaminophen (Acetaminophen 325 Mg Tablet) 650 mg PO Q6H PRN PRN Reason: Pain, Mild (Pain Scale 1-3) Last Admin: 02/19/23 08:03 Dose: 650 mg Documented By: ZOILA Acetazolamide (Acetazolamide 250 Mg Tablet) 250 mg PO DAILY [facility] Last Admin: 02/19/23 08:03 Dose: 250 mg Documented By: ZOILA Albuterol Sulfate (Albuterol Sulfate 90 Mcg 8 Gm Inhaler) 2 puff INHALE RQ4H PRN PRN Reason: sob/wheezing Apixaban (Apixaban 5 Mg Tablet) 5 mg PO BID [facility] Last Admin: 02/19/23 08:03 Dose: 5 mg Documented By: ZOILA Artificial Tears (Artificial Tears 15 Ml Drops) 2 drop EYE-BOTH 5XD PRN PRN Reason: Dry Eyes Last Admin: 02/13/23 11:50 Dose: 2 drop Documented By: ERIK Atorvastatin Calcium (Atorvastatin Calcium 80 Mg Tablet) 80 mg PO BEDTIME [facility] Last Admin: 02/18/23 21:39 Dose: 80 mg Documented By: TERRANCE Dexamethasone (Dexamethasone 4 Mg Tablet) 4 mg PO DAILY [facility] Stop: 02/21/23 09:01 Last Admin: 02/19/23 08:03 Dose: 4 mg Documented By: ZOILA Dextrose (Dextrose 50 % 25 Gm/50 Ml Syringe) 25 gm IVPUSH Q30M PRN PRN Reason: BG < 70 Dextrose (Dextrose 50 % 25 Gm/50 Ml Syringe) 25 gm IVPUSH Q15M PRN; Protocol PRN Reason: per Hypoglycemia Standing Ord. Diltiazem HCl (Diltiazem Hcl 30 Mg Tablet) 90 mg PO QID [facility]; Protocol Last Admin: 02/19/23 08:03 Dose: 90 mg Documented By: ZOILA Docusate Sodium (Docusate Sodium 100 Mg Capsule) 100 mg PO DAILY PRN PRN Reason: Constipation Furosemide (Furosemide 40 Mg Tablet) 40 mg PO DAILY [facility]; Protocol Last Admin: 02/19/23 08:03 Dose: 40 mg Documented By: ZOILA Glucose (Glucose Gel 15 Gm Gel..Gram.) 15 gm PO Q15M PRN; Protocol PRN Reason: per Hypoglycemia Standing Ord. Insulin Glargine (Insulin Glargine,Hum.Rec.Anlog 100 Unit/Ml 10 Ml Vial) 30 unit SUBCUT BID [facility] Last Admin: 02/19/23 08:04 Dose: 30 unit Documented By: ZOILA Insulin Human Lispro (Insulin Lispro 100 Unit/Ml 3 Ml Vial) 0 unit SUBCUT QIDACHS [facility]; Protocol Last Admin: 02/19/23 08:04 Dose: 2 unit Documented By: ZOILA Insulin Human Lispro (Insulin Lispro 100 Unit/Ml 3 Ml Vial) 10 unit SUBCUT TIDAC [facility] Last Admin: 02/19/23 08:04 Dose: 10 unit Documented By: ZOILA Ipratropium [place] (Ipratropium [place] 0.5 Mg/2.5 Ml Solution) 0.5 mg INHALE RQ4H WHILE AWAKE PRN PRN Reason: SHORTNESS OF BREATH/WHEEZE Lidocaine (Lidocaine 4 % Patch Adh..Patch) 1 patch TRANSDERMA DAILY [facility]; Protocol Last Admin: 02/19/23 08:04 Dose: 1 patch Documented By: ZOILA Ondansetron HCl (Ondansetron Hcl 4 Mg/2 Ml Vial) 4 mg IVPUSH Q8H PRN PRN Reason: Nausea and Vomiting Senna (Sennosides 8.6 Mg Tablet) 17.2 mg PO BID PRN PRN Reason: constipation Sodium Chloride (0.9 % Sodium Chloride Flush 3 Ml Syringe) 3 ml IVFLUSH QSHIFT EUGENIO Last Admin: 02/19/23 08:03 Dose: 3 ml Documented By: ZOILA Spironolactone (Spironolactone 25 Mg Tablet) 25 mg PO DAILY [facility]; Protocol Last Admin: 02/19/23 08:03 Dose: 25 mg Documented By: ZOILA Labs 02/18/23 05:18 02/19/23 08:30 Labs: Laboratory Results - last 24 hr 02/18/23 02/18/23 02/19/23 16:33 20:34 07:28 VBG pH VBG pCO2 VBG pO2 VBG HCO3 VBG O2 Saturation VBG Base Excess Anion Gap Estim Creat Clear Calc Estimated GFR POC Glucose 292 H 300 H 170 H Random Glucose Calcium Magnesium 02/19/23 02/19/23 08:30 08:37 VBG pH 7.56 H VBG pCO2 46 VBG pO2 67 VBG HCO3 41 H VBG O2 Saturation 94.0 VBG Base Excess 17.5 Anion Gap 14 Estim Creat Clear Calc 97.7 Estimated GFR > 60 POC Glucose Random Glucose 217 H Calcium 9.8 Magnesium 2.2 Assessment and Plan (1) Atrial fibrillation, new onset: Status: Acute Assessment and Plan: d8 62yo F with morbid obesity, obesity hypoventilation syndrome, TAURUS, chronic respiratory failure on 2L NC during day + AVAPS at night, COPD, and CHF presented with 3d of dyspnea admitted to ICU 02/11 with respiratory failure due to Covid-19 and CHF exacerbation requiring NIPPV new-onset AF stepped down to [facility]MC 02/18 acute/chronic respiratory failure - continue HFNC during day, AVAPS at night - continue acetazolamide new-onset AF - continue diltiazem, apixaban - when respiratory status improved, Cardiology re-consult to consider acute/chronic HFpEF cor pulmonale - furosemide gtt -> PO - continue spironolactone metabolic encephalopathy - due to hypercarbia; resolved Covid-19 infection - s/p 5d of remdesivir, on dexamethasone d8, isolation precautions DM2 - basal-bolus insulin VTE ppx - apixaban dispo - will eventually need STR In my clinical judgment, the patient requires continued inpatient hospitalization for the following reasons: HFNC Plan Time Spent With Patient Time: Total time managing care of this patient today _50___ minutes. Quality Stroke Does the patient have a stroke diagnosis?: No VTE Prior VTE?: No VTE Risk Level:: Medical - moderate - high VTE Device Contraindication: Treatment Not Indicated VTE Drug Contraindication: N/A - Med Ordered
[2023-02-19 11:44] LABS: Glucose, Whole Blood 300 mg/dL (60-115)
--- NOTE | 2023-02-19 13:05 | MHC.CM.PN ---
EMR REVIEWED, PT REMAINS ON HI FLOW O2, NO PLAN FOR D/C, PT WILL LIKELY NEED P.T. EVAL FOR DISPO, CM WILL CONT TO FOLLOW D/C NEEDS.
[2023-02-19 16:10] LABS: Glucose, Whole Blood 234 mg/dL (60-115)
[2023-02-19 20:49] LABS: Glucose, Whole Blood 298 mg/dL (60-115)
[2023-02-19] MEDS: Atorvastatin Calcium 80 MG TABLET PO (21:55)
[2023-02-20] VITALS (10 sets, daily range): BP systolic 106–142; BP diastolic 66–93; PULSE 72–95; RESP 17–22; TEMP 36.1–36.7; O2SAT 3–100; BMI 58.7
[2023-02-20 08:11] LABS: Glucose, Whole Blood 158 mg/dL (60-115)
[2023-02-20] MEDS: Lidocaine 4 % Patch ADH..PATCH 1 PATCH TRANSDERMA (08:32)
[2023-02-20] MEDS: Insulin Glargine,Hum.rec.anlog 100 UNIT/ML 10 ML VIAL 30 UNIT SUBCUT ×2 (08:32→21:36)
[2023-02-20] MEDS: acetaZOLAMIDE 250 MG TABLET PO (08:33)
[2023-02-20] MEDS: Insulin Lispro 100 UNIT/ML 3 ML VIAL 10 UNIT SUBCUT ×3 (08:33→16:35)
[2023-02-20] MEDS: dexAMETHasone 4 MG TABLET PO (08:33)
[2023-02-20] MEDS: Insulin Lispro 100 UNIT/ML 3 ML VIAL SUBCUT ×4 (08:33→21:35)
[2023-02-20] MEDS: Apixaban 5 MG TABLET PO ×2 (08:33→20:22)
[2023-02-20] MEDS: Spironolactone 25 MG TABLET PO (08:33)
[2023-02-20] MEDS: dilTIAZem HCL 30 MG TABLET 90 MG PO ×4 (08:33→20:22)
[2023-02-20] MEDS: Furosemide 40 MG TABLET PO (08:34)
[2023-02-20] MEDS: 0.9 % Sodium Chloride Flush 3 ML SYRINGE IVFLUSH ×3 (08:34→23:41)
[2023-02-20 08:50] LABS: VBG Base Excess 14.3 mmol/L; VBG HCO3 39 mmol/L (22-26); VBG pCO2 49 mmHg; VBG pO2 74 mmHg
[2023-02-20 08:50] LABS: Venous Blood Gas Refer to POC result
[2023-02-20 09:00] LABS: C Reactive Protein 0.25 mg/dL (< or = 0.50)
[2023-02-20 09:03] LABS: Anion Gap 10 (12-20); Blood Urea Nitrogen 33 mg/dL (9-16); Calcium 9.7 mg/dL (8.4-10.2); Carbon Dioxide 37 mmol/L (22-29); Chloride 98 mmol/L (96-108); Creatinine Clr Calc Pharmacy 104.2; Estimated Glomerular Filt Rate > 60; Glucose Random 160 mg/dL (60-115); Magnesium 2.2 mg/dL (1.6-2.6); Potassium 3.3 mmol/L (3.3-5.1); Sodium 142 mmol/L (135-145)
[2023-02-20 09:14] LABS: B Type Natriuretic Peptide 45 pg/mL (<100)
--- NOTE | 2023-02-20 11:27 | P.PNIM_ITS ---
Subjective Subjective Date of Service: 02/20/23 Interval History: breathing improving as is cough no chest pain no fever edema improving This history was taken in Latvian from the patient. Review of Systems Review of Systems: Yes all other systems are reviewed and are negative Physical Exam 2 Vital Signs: Vital Signs: Last Vital Signs Temp 97.9 F 02/20/23 08:00 Pulse 82 02/20/23 08:00 Resp 18 02/20/23 08:22 BP 122/71 02/20/23 08:00 Pulse Ox 100 02/20/23 08:00 O2 Del Method High Flow Nasal C annula 02/20/23 08:00 O2 Flow Rate 35 02/20/23 08:00 FiO2 40 02/20/23 08:00 Oxygen Flow Rate 50 02/13/23 08:00 BMI result Body Mass Index 58.7 Gen: in no acute distress HEENT: sclera anicteric, moist mucus membranes Neck: supple Lungs: diminished Heart: regular rate and rhythm, no murmurs Abd: soft, non-tender, non-distended, morbidly obese Ext: 1+ edema bilateral legs Skin: warm/well-perfused Neuro: alert and oriented x3, no focal findings Psych: appropriate affect Objective Data Active Medications Acetaminophen (Acetaminophen 325 Mg Tablet) 650 mg PO Q6H PRN PRN Reason: Pain, Mild (Pain Scale 1-3) Last Admin: 02/19/23 08:03 Dose: 650 mg Documented By: ZOILA Acetazolamide (Acetazolamide 250 Mg Tablet) 250 mg PO DAILY [facility] Last Admin: 02/20/23 08:33 Dose: 250 mg Documented By: SUDHA Albuterol Sulfate (Albuterol Sulfate 90 Mcg 8 Gm Inhaler) 2 puff INHALE RQ4H PRN PRN Reason: sob/wheezing Apixaban (Apixaban 5 Mg Tablet) 5 mg PO BID [facility] Last Admin: 02/20/23 08:33 Dose: 5 mg Documented By: SUDHA Artificial Tears (Artificial Tears 15 Ml Drops) 2 drop EYE-BOTH 5XD PRN PRN Reason: Dry Eyes Last Admin: 02/13/23 11:50 Dose: 2 drop Documented By: ERIK Atorvastatin Calcium (Atorvastatin Calcium 80 Mg Tablet) 80 mg PO BEDTIME [facility] Last Admin: 02/19/23 21:55 Dose: 80 mg Documented By: BHUPINDER Dexamethasone (Dexamethasone 4 Mg Tablet) 4 mg PO DAILY [facility] Stop: 02/21/23 09:01 Last Admin: 02/20/23 08:33 Dose: 4 mg Documented By: SUDHA Dextrose (Dextrose 50 % 25 Gm/50 Ml Syringe) 25 gm IVPUSH Q30M PRN PRN Reason: BG < 70 Dextrose (Dextrose 50 % 25 Gm/50 Ml Syringe) 25 gm IVPUSH Q15M PRN; Protocol PRN Reason: per Hypoglycemia Standing Ord. Diltiazem HCl (Diltiazem Hcl 30 Mg Tablet) 90 mg PO QID [facility]; Protocol Last Admin: 02/20/23 08:33 Dose: 90 mg Documented By: SUDHA Docusate Sodium (Docusate Sodium 100 Mg Capsule) 100 mg PO DAILY PRN PRN Reason: Constipation Furosemide (Furosemide 40 Mg Tablet) 40 mg PO DAILY [facility]; Protocol Last Admin: 02/20/23 08:34 Dose: 40 mg Documented By: SUDHA Glucose (Glucose Gel 15 Gm Gel..Gram.) 15 gm PO Q15M PRN; Protocol PRN Reason: per Hypoglycemia Standing Ord. Insulin Glargine (Insulin Glargine,Hum.Rec.Anlog 100 Unit/Ml 10 Ml Vial) 30 unit SUBCUT BID [facility] Last Admin: 02/20/23 08:32 Dose: 30 unit Documented By: SUDHA Insulin Human Lispro (Insulin Lispro 100 Unit/Ml 3 Ml Vial) 0 unit SUBCUT QIDACHS [facility]; Protocol Last Admin: 02/20/23 08:33 Dose: 4 unit Documented By: SUDHA Insulin Human Lispro (Insulin Lispro 100 Unit/Ml 3 Ml Vial) 10 unit SUBCUT TIDAC [facility] Last Admin: 02/20/23 08:33 Dose: 10 unit Documented By: SUDHA Lidocaine (Lidocaine 4 % Patch Adh..Patch) 1 patch TRANSDERMA DAILY [facility]; Protocol Last Admin: 02/20/23 08:32 Dose: 1 patch Documented By: SUDHA Ondansetron HCl (Ondansetron Hcl 4 Mg/2 Ml Vial) 4 mg IVPUSH Q8H PRN PRN Reason: Nausea and Vomiting Senna (Sennosides 8.6 Mg Tablet) 17.2 mg PO BID PRN PRN Reason: constipation Sodium Chloride (0.9 % Sodium Chloride Flush 3 Ml Syringe) 3 ml IVFLUSH QSHIFT [facility] Last Admin: 02/20/23 08:34 Dose: 3 ml Documented By: SUDHA Spironolactone (Spironolactone 25 Mg Tablet) 25 mg PO DAILY [facility]; Protocol Last Admin: 02/20/23 08:33 Dose: 25 mg Documented By: SUDHA Labs 02/18/23 05:18 02/20/23 08:39 Labs: Laboratory Results - last 24 hr 02/19/23 02/19/23 02/19/23 11:28 16:05 20:45 VBG pH VBG pCO2 VBG pO2 VBG HCO3 VBG O2 Saturation VBG Base Excess Anion Gap Estim Creat Clear Calc Estimated GFR POC Glucose 300 H 234 H 298 H Random Glucose Calcium Magnesium C-Reactive Protein B-Natriuretic Peptide 02/20/23 02/20/23 02/20/23 08:04 08:39 08:45 VBG pH 7.50 H VBG pCO2 49 VBG pO2 74 VBG HCO3 39 H VBG O2 Saturation 95.0 VBG Base Excess 14.3 Anion Gap 10 L Estim Creat Clear Calc 104.2 Estimated GFR > 60 POC Glucose 158 H Random Glucose 160 H Calcium 9.7 Magnesium 2.2 C-Reactive Protein 0.25 B-Natriuretic Peptide 45 Assessment and Plan (1) Atrial fibrillation, new onset: Status: Acute Assessment and Plan: d9 62yo F with morbid obesity, obesity hypoventilation syndrome, TAURUS, chronic respiratory failure on 2L NC during day + AVAPS at night, COPD, and CHF presented with 3d of dyspnea admitted to ICU 02/11 with respiratory failure due to Covid-19 and CHF exacerbation requiring NIPPV new-onset AF stepped down to [facility] 02/18 acute/chronic respiratory failure - try to wean off HFNC during day, AVAPS at night - continue acetazolamide new-onset AF - continue diltiazem, apixaban - when respiratory status improved, Cardiology re-consult to consider cardioversion acute/chronic HFpEF cor pulmonale - furosemide gtt -> PO; negative 15.6L this admission - continue spironolactone metabolic encephalopathy - due to hypercarbia; resolved Covid-19 infection - s/p 5d of remdesivir, on dexamethasone d9, isolation precautions for 2 more days DM2 - basal-bolus insulin VTE ppx - apixaban dispo - will eventually need STR In my clinical judgment, the patient requires continued inpatient hospitalization for the following reasons: HFNC Plan Time Spent With Patient Time: Total time managing care of this patient today __35__ minutes. Quality Stroke Does the patient have a stroke diagnosis?: No VTE Prior VTE?: No VTE Risk Level:: Medical - moderate - high VTE Device Contraindication: Treatment Not Indicated VTE Drug Contraindication: N/A - Med Ordered
[2023-02-20 11:44] LABS: Glucose, Whole Blood 296 mg/dL (60-115)
[2023-02-20 16:18] LABS: Glucose, Whole Blood 234 mg/dL (60-115)
--- NOTE | 2023-02-20 17:12 | MHC.SL.SWA ---
Dysphasia Diet Status: NO CHANGE Liquid Consistency and Strategies for Safe Swallow: Liquid Intake Recommendation: Thin Liquid Intake Strategies: Small Sips No Straws Solid Food Consistency: Dietary Recommendations: Chopped/Advanced (NDD3) Additional Modifications to Solid Foods: Pt requires total 1:1 assistance feeding. Moisten food with sauces/gravies. Administer one bite at a time and ensure oral cavity is clear before presenting more bites. Alternate bites/sips to clear residuals. Oral Medication Intake: Whole with Liquid Please contact the pharmacy regarding appropriate crushable or liquid drug formulations that are available whenever modified delivery is recommended. Compensatory Strategies and Precautions to be Taken for Safe Swallow: Sitting Upright (90 deg) Double Swallow No Straw Liquids from Cup Liquids from Spoon Small Bites and Sips Rate of Ingestion Change Oral Check Avoid Specific Foods Supervision While Eating and Drinking for Safe Swallow: Total Supervision (1:1) Foods to Avoid: Hard, tough to chew solids; sticky textures Swallowing Recommended Treatments: Compens. Strategy Educat. Recommendation for Speech: Further Testing Needed Inpatient Speech Therapy Recommend patient continue w/ CHOPPED/ADVANCED solids (NDD3), THIN liquids (NO STRAW), and pills w/ liquid (NO STRAW). Recommend supervision to monitor for s/s aspiration. Reinforcing Iron Worker Helper Clinican/Clinical Fellow: No Supervisory Statement: I have reviewed and agree with the student/clinical fellow's documentation: No Speech Language Pathologist: Tatiana Irene M.A., [facility]-CONSUMER INSIGHT[employer] INTERN
[2023-02-20] MEDS: Atorvastatin Calcium 80 MG TABLET PO (20:22)
--- NOTE | 2023-02-20 20:27 | PC.NURSE ---
oxygen saturation 83-86 % on 3l via NC when pt is sleeping.
[2023-02-20 20:46] LABS: Glucose, Whole Blood 219 mg/dL (60-115)
[2023-02-21] VITALS (8 sets, daily range): BP systolic 119–141; BP diastolic 67–89; PULSE 52–100; RESP 18–22; TEMP 36.1–36.7; O2SAT 96–100; BMI 58.6
[2023-02-21 07:35] LABS: Glucose, Whole Blood 153 mg/dL (60-115)
[2023-02-21] MEDS: Furosemide 40 MG TABLET PO (10:15)
[2023-02-21] MEDS: dilTIAZem HCL CD 180 MG CAP.ER.24H 360 MG PO (10:15)
[2023-02-21] MEDS: Spironolactone 25 MG TABLET PO (10:15)
[2023-02-21] MEDS: acetaZOLAMIDE 250 MG TABLET PO (10:15)
[2023-02-21] MEDS: Apixaban 5 MG TABLET PO ×2 (10:15→21:20)
[2023-02-21] MEDS: Insulin Lispro 100 UNIT/ML 3 ML VIAL SUBCUT ×4 (10:16→21:20)
[2023-02-21] MEDS: dexAMETHasone 4 MG TABLET PO (10:16)
[2023-02-21] MEDS: Insulin Lispro 100 UNIT/ML 3 ML VIAL 10 UNIT SUBCUT ×3 (10:16→18:14)
[2023-02-21] MEDS: 0.9 % Sodium Chloride Flush 3 ML SYRINGE IVFLUSH ×3 (10:17→21:21)
[2023-02-21] MEDS: Insulin Glargine,Hum.rec.anlog 100 UNIT/ML 10 ML VIAL 30 UNIT SUBCUT ×2 (10:17→21:20)
[2023-02-21] MEDS: Lidocaine 4 % Patch ADH..PATCH 1 PATCH TRANSDERMA (10:17)
[2023-02-21 11:17] LABS: Glucose, Whole Blood 154 mg/dL (60-115)
--- NOTE | 2023-02-21 11:53 | HO.PM.IMPN ---
Subjective Subjective Date of Service: 02/21/23 Interval History: weaned off HFNC to NC 2L no chest pain no dyspnea edema improved persistent AF This history was taken in Turkish from the patient. Review of Systems Review of Systems: Yes all other systems are reviewed and are negative Physical Exam Vital Signs: Vital Signs: Last Vital Signs Temp 97.4 F 02/21/23 11:09 Pulse 52 02/21/23 11:09 Resp 18 02/21/23 11:09 BP 135/71 02/21/23 11:09 Pulse Ox 96 02/21/23 11:09 O2 Del Method Nasal Cannula 02/21/23 11:09 O2 Flow Rate 2 02/21/23 11:09 FiO2 35 02/21/23 08:00 Oxygen Flow Rate 50 02/13/23 08:00 BMI result Body Mass Index 58.6 Gen: in no acute distress HEENT: sclera anicteric, moist mucus membranes Neck: supple Lungs: diminished Heart: regular rate and rhythm, no murmurs Abd: soft, non-tender, non-distended, morbidly obese Ext: 1+ edema bilateral legs Skin: warm/well-perfused Neuro: alert and oriented x3, no focal findings Psych: appropriate affect Objective Data Active Medications Acetaminophen (Acetaminophen 325 Mg Tablet) 650 mg PO Q6H PRN PRN Reason: Pain, Mild (Pain Scale 1-3) Last Admin: 02/19/23 08:03 Dose: 650 mg Documented By: ZOILA Acetazolamide (Acetazolamide 250 Mg Tablet) 250 mg PO DAILY [facility] Last Admin: 02/21/23 10:15 Dose: 250 mg Documented By: YOKO Albuterol Sulfate (Albuterol Sulfate 90 Mcg 8 Gm Inhaler) 2 puff INHALE RQ4H PRN PRN Reason: sob/wheezing Apixaban (Apixaban 5 Mg Tablet) 5 mg PO BID [facility] Last Admin: 02/21/23 10:15 Dose: 5 mg Documented By: YOKO Artificial Tears (Artificial Tears 15 Ml Drops) 2 drop EYE-BOTH 5XD PRN PRN Reason: Dry Eyes Last Admin: 02/13/23 11:50 Dose: 2 drop Documented By: ERIK Atorvastatin Calcium (Atorvastatin Calcium 80 Mg Tablet) 80 mg PO BEDTIME [facility] Last Admin: 02/20/23 20:22 Dose: 80 mg Documented By: MERLE Dextrose (Dextrose 50 % 25 Gm/50 Ml Syringe) 25 gm IVPUSH Q30M PRN PRN Reason: BG < 70 Dextrose (Dextrose 50 % 25 Gm/50 Ml Syringe) 25 gm IVPUSH Q15M PRN; Protocol PRN Reason: per Hypoglycemia Standing Ord. Diltiazem HCl (Diltiazem Hcl Cd 180 Mg Cap.Er.24h) 360 mg PO DAILY [facility]; Protocol Last Admin: 02/21/23 10:15 Dose: 360 mg Documented By: YOKO Docusate Sodium (Docusate Sodium 100 Mg Capsule) 100 mg PO DAILY PRN PRN Reason: Constipation Furosemide (Furosemide 40 Mg Tablet) 40 mg PO DAILY [facility]; Protocol Last Admin: 02/21/23 10:15 Dose: 40 mg Documented By: YOKO Glucose (Glucose Gel 15 Gm Gel..Gram.) 15 gm PO Q15M PRN; Protocol PRN Reason: per Hypoglycemia Standing Ord. Insulin Glargine (Insulin Glargine,Hum.Rec.Anlog 100 Unit/Ml 10 Ml Vial) 30 unit SUBCUT BID [facility] Last Admin: 02/21/23 10:17 Dose: 30 unit Documented By: YOKO Insulin Human Lispro (Insulin Lispro 100 Unit/Ml 3 Ml Vial) 0 unit SUBCUT QIDACHS [facility]; Protocol Last Admin: 02/21/23 10:16 Dose: 4 unit Documented By: YOKO Insulin Human Lispro (Insulin Lispro 100 Unit/Ml 3 Ml Vial) 10 unit SUBCUT TIDAC [facility] Last Admin: 02/21/23 10:16 Dose: 10 unit Documented By: YOKO Lidocaine (Lidocaine 4 % Patch Adh..Patch) 1 patch TRANSDERMA DAILY [facility]; Protocol Last Admin: 02/21/23 10:17 Dose: 1 patch Documented By: YOKO Ondansetron HCl (Ondansetron Hcl 4 Mg/2 Ml Vial) 4 mg IVPUSH Q8H PRN PRN Reason: Nausea and Vomiting Senna (Sennosides 8.6 Mg Tablet) 17.2 mg PO BID PRN PRN Reason: constipation Sodium Chloride (0.9 % Sodium Chloride Flush 3 Ml Syringe) [address] [facility] Last Admin: 02/21/23 10:17 Dose: 3 ml Documented By: YOKO Spironolactone (Spironolactone 25 Mg Tablet) 25 mg PO DAILY [facility]; Protocol Last Admin: 02/21/23 10:15 Dose: 25 mg Documented By: YOKO Labs 02/18/23 05:18 02/20/23 08:39 Labs: Laboratory Results - last 24 hr 02/20/23 02/20/23 02/21/23 16:02 20:42 07:30 POC Glucose 234 H 219 H 153 H 02/21/23 11:12 POC Glucose 154 H Assessment and Plan (1) Atrial fibrillation, new onset: Status: Acute Assessment and Plan: d11 62yo F with morbid obesity, obesity hypoventilation syndrome, TAURUS, chronic respiratory failure on 2L NC during day + AVAPS at night, COPD, and CHF presented with 3d of dyspnea admitted to ICU 02/11 with respiratory failure due to Covid-19 and CHF exacerbation requiring NIPPV new-onset AF stepped down to [facility] 02/18 acute/chronic respiratory failure - weaned off HFNC to NC during day, continue AVAPS at night - continue acetazolamide PO new-onset AF - continue diltiazem, apixaban - respiratory status improved; Cardiology re-consult to consider rhythm control acute/chronic HFpEF cor pulmonale - furosemide gtt -> PO; negative 17.3L this admission - continue spironolactone metabolic encephalopathy - due to hypercarbia; resolved Covid-19 infection - s/p 5d of remdesivir, on dexamethasone d9, isolation precautions for 1 more day DM2 - basal-bolus insulin VTE ppx - apixaban dispo - STR vs HVNA In my clinical judgment, the patient requires continued inpatient hospitalization for the following reasons: resp failure, rhythm control, placement Plan Time Spent With Patient Time: Total time managing care of this patient today __35__ minutes. Quality Stroke Does the patient have a stroke diagnosis?: No VTE Prior VTE?: No VTE Risk Level:: Medical - moderate - high VTE Device Contraindication: Treatment Not Indicated VTE Drug Contraindication: N/A - Med Ordered
--- NOTE | 2023-02-21 15:57 | MHC.SL.SWA ---
Speech Pathologist Impression: Risk of aspiration, oral phase dysphagia Dysphasia Diet Status: Recommend continue w/ CHOPPED/ADVANCED solids (NDD3), THIN liquids (NO STRAW) with 1:1 supervision and aspiration precautions. Pt has expressed a preference for her food to be chopped though she has demonstrated tolerance of regular textures. Further ST intervention is no longer warranted, as pt has been stable on these recommendations. Please re-refer with any changes or further concern. Liquid Consistency and Strategies for Safe Swallow: Liquid Intake Recommendation: Thin Liquid Intake Strategies: Small Sips No Straws Solid Food Consistency: Dietary Recommendations: Chopped/Advanced (NDD3) Additional Modifications to Solid Foods: Pt requires total 1:1 assistance feeding. Moisten food with sauces/gravies. Administer one bite at a time and ensure oral cavity is clear before presenting more bites. Alternate bites/sips to clear residuals. Oral Medication Intake: Whole with Liquid Please contact the pharmacy regarding appropriate crushable or liquid drug formulations that are available whenever modified delivery is recommended. Compensatory Strategies and Precautions to be Taken for Safe Swallow: Sitting Upright (90 deg) Double Swallow No Straw Liquids from Cup Liquids from Spoon Small Bites and Sips Rate of Ingestion Change Oral Check Avoid Specific Foods Supervision While Eating and Drinking for Safe Swallow: Total Supervision (1:1) Foods to Avoid: Hard, tough to chew solids; sticky textures Swallowing Recommended Treatments: Compens. Strategy Educat. Recommendation for Speech: D/C Manufacturing Engineering Technologist Clinican/Clinical Fellow: No Supervisory Statement: I have reviewed and agree with the student/clinical fellow's documentation: No Speech Language Pathologist: Zelda De Santiago M.A., CCC-COUNCILPERSON
[2023-02-21 16:05] LABS: Glucose, Whole Blood 270 mg/dL (60-115)
[2023-02-21 20:17] LABS: Glucose, Whole Blood 344 mg/dL (60-115)
[2023-02-21] MEDS: Atorvastatin Calcium 80 MG TABLET PO (21:20)
[2023-02-22] VITALS (7 sets, daily range): BP systolic 123–131; BP diastolic 74–97; PULSE 72–94; RESP 18–20; TEMP 36.1–36.7; O2SAT 99–100
[2023-02-22 07:43] LABS: Glucose, Whole Blood 129 mg/dL (60-115)
[2023-02-22] MEDS: dilTIAZem HCL CD 180 MG CAP.ER.24H 360 MG PO (08:57)
[2023-02-22] MEDS: Spironolactone 25 MG TABLET PO (08:58)
[2023-02-22] MEDS: Apixaban 5 MG TABLET PO (08:58)
[2023-02-22] MEDS: acetaZOLAMIDE 250 MG TABLET PO (08:58)
[2023-02-22] MEDS: Furosemide 40 MG TABLET PO (08:59)
[2023-02-22] MEDS: Lidocaine 4 % Patch ADH..PATCH 1 PATCH TRANSDERMA (08:59)
[2023-02-22] MEDS: Insulin Lispro 100 UNIT/ML 3 ML VIAL SUBCUT ×2 (09:00→13:00)
[2023-02-22] MEDS: Insulin Glargine,Hum.rec.anlog 100 UNIT/ML 10 ML VIAL 30 UNIT SUBCUT (09:00)
[2023-02-22] MEDS: Insulin Lispro 100 UNIT/ML 3 ML VIAL 10 UNIT SUBCUT ×2 (09:01→13:00)
[2023-02-22] MEDS: 0.9 % Sodium Chloride Flush 3 ML SYRINGE IVFLUSH (09:01)
[2023-02-22 11:35] LABS: Glucose, Whole Blood 181 mg/dL (60-115)
--- NOTE | 2023-02-22 12:04 | MHC.CLN ---
F/U PT WITH INCREASED NUTRITION RISK R/T PRESSURE INJURY PO INTAKE 100% DIET RX: 2200DM CHOPPED-APPROPRIATE RECOMMEND ADDING ENSURE MAX BID TO PROMOTE WOUND HEALING SUPP PROVIDES 300KCALS, 60G PROTEIN MONITOR PO INTAKE CLOSELY
--- NOTE | 2023-02-22 13:18 | W.MHC.F2F ---
Service Date Service Date: 02/22/23 Encounter Date of encounter: 02/22/23 Reasons for Services Signs and symptoms assessed: dyspnea, CHF Reason for nursing home: medication management and teach disease management Reason for physical therapy: home safety and mobility, therapeutic exercises, gait/transfer training, assess need for DME, ADL training and energy conservation MD Overseeing Care: Dolores Dubois Homebound: Leaving the home is medically contraindicated at this time without the asist of a device and/or another person due th the listed conditions above and below. Reason homebound: shortness of breath with minimal effort, shortness of breath at rest and weakness related to hospital stay Certification: Based on the above findings, I certify that this patient is confined to the home and needs intermittent nursing home care, physical therapy and/or speech therapy, or continues to need occupational therapy. The patient is under my care, and I have initiated the establishment of the plan of care. The patient will be followed by a physician who will periodically review the plan of care. Time Spent With Patient Time: Total time managing care of this patient today ____ minutes.
--- NOTE | 2023-02-22 14:16 | PM.PNCARD ---
Subjective Subjective Date of Service: 02/22/23 Principal diagnosis: Respiratory failure, atrial fibrillation Interval history: Requested to see the patient again regarding atrial fibrillation. Patient herself states that she is feeling fine. No complaints like angina or palpitations or in fact anything cardiac sounding. She is comfortably resting in bed. She is lying flat. Review of Systems Review of Systems Yes all other systems are reviewed and are negative Constitutional: Reports as per HPI and Reports no additional constitutional complaints Eyes: Reports as per HPI and Denies no additional eye complaints Denies system reviewed and no additional complaints, except as documented and Reports as per HPI Cardiovascular: Reports as per HPI, Reports no additional cardiovascular complaints, Denies acrocyanosis, Denies cool extremities, Denies chest pain, Denies leg edema, Denies lightheadedness, Denies palpitations and Denies dyspnea Respiratory: Reports as per HPI, Denies no additional respiratory complaints and Denies dyspnea Gastrointestinal: Reports as per HPI and Denies no additional gastrointestinal complaints Genitourinary: Reports as per HPI Musculoskeletal: Reports no additional musculoskeletal complaints and Reports as per HPI Skin/Breast: Reports system reviewed and no additional complaints, except as docu Reports system reviewed and no additional complaints, except as documented and Reports as per HPI Psychiatric: Reports no additional psychiatric complaints and Reports as per HPI Endocrine: Reports no additional endocrine complaints, Reports as per HPI and Denies palpitations Hematologic/Lymphatic: Reports no additional hematologic/lymphatic complaints and Reports as per HPI Allergic/Immunologic: Reports no additional allergic/immunologic complaints and Reports as per HPI Physical Exam Vital Signs: Last Vital Signs Temp 98.0 F 02/22/23 11:51 Pulse 94 02/22/23 11:51 Resp 20 02/22/23 11:51 BP 128/74 02/22/23 11:51 Pulse Ox 99 02/22/23 11:51 O2 Del Method Nasal Cannula 02/22/23 11:51 O2 Flow Rate 2 02/22/23 11:51 FiO2 35 02/22/23 08:00 Oxygen Flow Rate 50 02/13/23 08:00 BMI result Body Mass Index 58.6 Const General: comfortable and no acute distress Orientation/consciousness: patient oriented x3 HEENT Other: Unremarkable Head: Yes normal to inspection Neck Neck: Yes normal visual inspection Chest Chest palpation & inspection: normal inspection of the chest Resp Other: Diminished breath sounds. Difficult to auscultate due to body habitus. Cardio Palpation: normal PMI Heart sounds: S1 normal heart sound present, S2 normal heart sound present, no gallops, no murmurs and no rubs GI Palpation (GI): Soft to palpation Back/Spine/Pelvis Other: unremarkable Skin General skin exam: no rashes or lesions noted Neuro General: patient oriented x3 Extrem General: Yes normal to inspection Psych Mental Status: mental status grossly normal Objective Labs and Meds 02/18/23 05:18 02/20/23 08:39 Lab results: Laboratory Results - last 24 hr 02/21/23 02/21/23 02/22/23 16:01 20:13 07:36 POC Glucose 270 H 344 H 129 H 02/22/23 11:12 POC Glucose 181 H Progress Note: A&P Assessment and plan (1) Atrial fibrillation, new onset: Status: Acute (2) COVID-19: Status: Acute (3) Acute on chronic respiratory failure with hypoxemia: Status: Acute (4) Cor pulmonale (chronic): Status: Acute (5) Obesity: Status: Acute Plan Atrial fibrillation with multiple medical comorbidities, primarily morbid obesity. On telemetry, ventricular rates are fairly well controlled and do not see anything persistently rapid. Occasional spikes but are very short. In the echocardiogram, LVEF is 65%. Valves were not well visualized. Currently, she is on diltiazem CD 3 60 mg daily and Eliquis. At this time, she is not a suitable candidate for CHRIST cardioversion. As the rate is well controlled, no absolute indication for the same either. She is not unstable and also denies any clear symptoms. Even if cardioverted, there is a very high chance of recurrence due to comorbidities. Hence continue rate control/anticoagulation. May be followed in the clinic and then we can plan further care. d/w . Total time spent including review of data, counseling, documentation, coordination of care-34 minutes. Time Spent With Patient Time: Total time managing care of this patient today ____ minutes. Progress Note: Quality Stroke Does the patient have a stroke diagnosis?: No Procedures Date of Service Date of Service: 02/22/23
--- NOTE | 2023-02-22 14:41 | PM.DS ---
DS: Providers Provider Date of Service: 02/22/23 Date of admission: 02/11/23 19:39 Date of discharge: 02/22/23 Primary care physician: Dolores Dubois MD Consults: 02/11/23 19:39 Consult to Cardiology Routine Consulting Provider: [facility] [place] Cardiovascular Services Reason for consultation: new onset afib, chf Has provider been notified: Yes 02/12/23 07:22 Consult to Infectious Diseases Routine Consulting Provider: [facility] [place] Infectious Disease Reason for consultation: covid 02/12/23 16:03 Consult to Critical Care Stat Consulting Provider: Rylee Culp Reason for consultation: hypoxia 02/21/23 09:43 Consult to Cardiology Routine Consulting Provider: [facility] [place] Cardiovascular Services Reason for consultation: persistent AF. rhythm contrl? DS: Diagnosis Discharge Diagnosis (1) Atrial fibrillation, new onset: Status: Acute (2) COVID-19: Status: Acute (3) Cor pulmonale (chronic): Status: Acute (4) Acute on chronic heart failure with preserved ejection fraction (HFpEF): Status: Acute (5) Acute on chronic respiratory failure with hypoxia and hypercapnia: Status: Acute (6) Acute cor pulmonale: Status: Acute (7) Diabetes mellitus: Status: Acute (8) Metabolic encephalopathy: Status: Acute DS: Summary Hospital Course Hospital Course: from hospitalist admission H+P by CHANTALE Nieves, 02/11/23: 62-year-old female with history of hypertension, asthma/COPD overlap, chronic hypoxemic respiratory failure on 2 L supplemental O2 at baseline, obstructive sleep apnea, heart failure with preserved ejection fraction, history of CVA, and insulin-dependent type 2 diabetes presented to the ED earlier today for evaluation of dyspnea on exertion and orthopnea ongoing for 1 day. Denies any fevers, chills, sore throat, sinus pain, rhinorrhea, abdominal pain, nausea, vomiting, diarrhea, cough, lightheadedness, palpitations, or chest pain. She is also reporting left flank pain that has been ongoing for over a month after sustaining a fall. Reports the pain radiates down the left leg and makes it difficult to ambulate. She ambulates with a walker at baseline. On arrival, patient afebrile, tachycardic to 145, hypoxic to 85% placed on 9 L supplemental O2 maintaining oximetry 89-92%. H/H 9.4/32.2%, MCV 89.2. Renal function baseline, electrolyte levels normal except for chloride 91, CO2 40 both consistent with baseline. Magnesium also low at 1.1. Lactic acid 2.1. Troponin 14.1, BNP 225. COVID-19 positive. Chest x-ray shows cardiomegaly and moderate prominence of the central pulmonary vessels and increased lung markings, consistent with CHF. EKG shows atrial fibrillation with RVR, rate [address]/T-wave abnormality. In ED, given 2 g IV magnesium, 5 mg IV Lopressor, 500 mg IV Zithromax, 6 mg dexamethasone, 125 mg methylprednisolone. Also started on 5 mg Eliquis. Cardizem drip has also been ordered. Ms Keenan is a 62yo F with morbid obesity, obesity hypoventilation syndrome, TAURUS, chronic respiratory failure on 2L NC during day + AVAPS at night, COPD, and CHF who presented with 3d of dyspnea and was initially admitted to the hospitalist service due to Covid-19 and CHF exacerbation but then transferred to the ICU 02/11/23 for hypoxic/hypercarbic respiratory failure requiring NIPPV and HFNC. She was transferred down to the [facility] [place] on [place]/18/23. Hospital course by problem: acute/chronic hypoxic/hypercarbic respiratory failure - Weaned off HFNC to 2L O2 via NC during day, and continued AVAPS at night. Also got several doses of acetazolamide. new-onset AF - Persistent. Rate-controlled with diltiazem. Started anticoagulation with apixaban. Follow-up with Cardiology as outpatient. Rhythm control unlikely to be maintained in this patient with cor pulmonale. acute/chronic HFpEF cor pulmonale - Diuresed with IV furosemide infusion, then pushes, then oral maintenance dose. Overall negative 18 liters net this admission. Also started on spironolactone. metabolic encephalopathy - due to hypercarbia; resolved Covid-19 infection -Treated with 5 days of IV remdesivir and 10 days of IV dexamethasone. Completed 10 days of isolation while hospitalized. Her strength recovered to the point where she was discharged home with VNA services. Time Spent with Patient Time attestation: Total time managing care of this patient today __45__ minutes. Discharge coordination time: Greater than 30 minutes Quality: Safe Use of Opioids Does Pt have an Active Cancer Diagnosis on the Problem List?: No Quality: Stroke Does the patient have a stroke diagnosis?: No Physical Exam Vital Signs: Vital Signs: Last Vital Signs Temp 98.0 F 02/22/23 11:51 Pulse 94 02/22/23 11:51 Resp 20 02/22/23 11:51 BP 128/74 02/22/23 11:51 Pulse Ox 99 02/22/23 11:51 O2 Del Method Nasal Cannula 02/22/23 11:51 O2 Flow Rate 2 02/22/23 11:51 FiO2 35 02/22/23 08:00 Oxygen Flow Rate 50 02/13/23 08:00 BMI result Body Mass Index 58.6 Gen: in no acute distress HEENT: sclera anicteric, moist mucus membranes Neck: supple Lungs: diminished Heart: regular rate and rhythm, no murmurs Abd: soft, non-tender, non-distended, morbidly obese Ext: 1+ edema bilateral legs Skin: warm/well-perfused Neuro: alert and oriented x3, no focal findings Psych: appropriate affect DS: Data Data Completed and Pending Completed studies during hospitalization [Text1]: Laboratory Results WBC 10.1 X10*3/uL (4.8-10.8) 02/18/23 05:18 RBC 4.87 X10*6/uL (4.20-5.50) 02/18/23 05:18 Hgb 12.5 g/dl (12.0-16.0) 02/18/23 05:18 Hct 39.6 % (37.0-47.0) 02/18/23 05:18 MCV 81.3 fL (80.0-98.0) D 02/18/23 05:18 MCH 25.7 pg (27.0-33.0) L 02/18/23 05:18 MCHC 31.6 g/dl (31.0-35.0) 02/18/23 05:18 RDW 14.2 % (11.0-16.0) 02/18/23 05:18 Plt Count 505 X10*3/uL (160-400) H 02/18/23 05:18 MPV 9.1 fL (9.4-12.3) L 02/18/23 05:18 Immature Gran % (Auto) 0.9 % (0.0-0.4) H 02/18/23 05:18 Neut % (Auto) 83.4 % (45-73) H 02/18/23 05:18 Lymph % (Auto) 8.0 % (20-40) L 02/18/23 05:18 [place] % (Auto) 7.6 % (2-11) 02/18/23 05:18 Eos % (Auto) 0.0 % (0-4) 02/18/23 05:18 Baso % (Auto) 0.1 % (0-2) 02/18/23 05:18 Lymph # (Auto) 0.8 X10*3/uL (1.2-4.9) L 02/18/23 05:18 [place] # (Auto) 0.8 X10*3/uL (0.1-1.2) 02/18/23 05:18 Eos # (Auto) 0.0 X10*3/uL (0.0-0.4) 02/18/23 05:18 Baso # (Auto) 0.0 X10*3/uL (0.0-0.2) 02/18/23 05:18 Abs Immat Gran (auto) 0.09 X10*3/uL (0.00-0.03) H 02/18/23 05:18 Absolute Neuts (auto) 8.4 x10*3/uL (2.0-8.3) H 02/18/23 05:18 Absolute Nucleated RBC 0.000 X10*3/uL (0.0-0.012) 02/18/23 05:18 Nucleated RBC % (auto) 0.0 /100WBC (0.0-0.2) 02/18/23 05:18 Smear Tech's Comments VERIFIED 02/12/23 06:14 PT 13.1 SEC (11.1-13.3) 02/11/23 18:04 INR 1.1 (0.9-1.1) 02/11/23 18:04 O2 Saturation 92.0 % 02/12/23 18:04 ABG pH at Pt Temp 7.25 (7.35-7.45) L 02/12/23 18:04 ABG pCO2 at Pt Temp 107 mmHg (32-45) H* 02/12/23 18:04 ABG pO2 at Pt Temp 76 mmHg (83-108) L 02/12/23 18:04 ABG HCO3 48 mmol/L (22-26) H 02/12/23 18:04 ABG Base Excess (Actual) 16.0 mmol/L 02/12/23 18:04 VBG pH 7.50 (7.32-7.43) H 02/20/23 08:45 VBG pCO2 49 mmHg 02/20/23 08:45 VBG pO2 74 mmHg 02/20/23 08:45 VBG HCO3 39 mmol/L (22-26) H 02/20/23 08:45 VBG O2 Saturation 95.0 % 02/20/23 08:45 VBG Base Excess 14.3 mmol/L 02/20/23 08:45 Sodium 142 mmol/L (135-145) 02/20/23 08:39 Potassium 3.3 mmol/L (3.3-5.1) 02/20/23 08:39 Chloride 98 mmol/L (96-108) 02/20/23 08:39 Carbon Dioxide 37 mmol/L (22-29) H 02/20/23 08:39 Anion Gap 10 (12-20) L 02/20/23 08:39 BUN 33 mg/dL (9-16) H 02/20/23 08:39 Creatinine 0.79 mg/dL (0.5-1.4) 02/20/23 08:39 Estim Creat Clear Calc 104.2 02/20/23 08:39 Estimated GFR > 60 02/20/23 08:39 POC Glucose 181 mg/dL (60-115) H 02/22/23 11:12 Random Glucose 160 mg/dL (60-115) H 02/20/23 08:39 Lactic Acid 0.7 mmol/L (0.5-2.0) 02/12/23 18:57 Calcium 9.7 mg/dL (8.4-10.2) 02/20/23 08:39 Phosphorus 4.1 mg/dL (2.7-4.5) 02/17/23 04:59 Magnesium 2.2 mg/dL (1.6-2.6) 02/20/23 08:39 Total Bilirubin 0.7 mg/dL (0.0-1.0) 02/18/23 05:18 Direct Bilirubin 0.2 mg/dL (0.0-0.5) 02/11/23 17:48 AST 11 U/L (5-31) 02/18/23 05:18 ALT 22 U/L (0-31) 02/18/23 05:18 Alkaline Phosphatase 102 U/L (39-117) 02/18/23 05:18 Lactate Dehydrogenase 223 U/L (122-220) H 02/11/23 17:48 Troponin I High Sens 14.1 ng/L (<3.5-17.0) D 02/11/23 18:04 C-Reactive Protein 0.25 mg/dL (< or = 0.50) 02/20/23 08:39 B-Natriuretic Peptide 45 pg/mL (<100) 02/20/23 08:39 Total Protein 6.8 g/dL (6.5-8.0) 02/18/23 05:18 Albumin 3.7 g/dL (3.5-5.0) 02/18/23 05:18 Procalcitonin 0.03 ng/mL 02/14/23 12:09 TSH 1.82 uIU/mL (0.32-4.0) 02/11/23 18:04 COVID-19 (MICHEL) Positive (Negative) A 02/11/23 18:04 COVID-19 Clin Com See Note 02/11/23 18:04 Impressions Chest X-Ray 02/18/23 10:38 IMPRESSION: 1. Low lung volumes. 2. No acute disease. Discharge Plan Discharge Anticipated Discharge Date/Time: 02/22/23 14:32 Patient Disposition: Home Health Service Discharge Diagnosis: acute/chronic hypoxic and hypercarbic respiratory failure new-onset AF acute/chronic HFpEF cor pulmonale metabolic encephalopathy Covid-19 infection morbid obesity Referrals: Shanda BINGHAM [Outside] - 1 Day (RESUMPTION OF NURSING HOME AND NEW HOME OT/PT ) Dolores Renteria MD [Primary Care Provider] - 1 Week (call office to schedule follow up visit with pcp) Remington Monge MD [Physician] - 2 Weeks Discharge Medications: New diltiazem HCl [Cardizem CD] 180 mg Capsule,Extended Release 24hr 360 mg PO DAILY Qty: 30 0RF Protocol: Hold for SBP/HR < HOLD for SBP < : 90 HOLD for HR < : 60 spironolactone 25 mg Tablet 25 mg PO DAILY Qty: 30 0RF Protocol: Hold for SBP< HOLD for SBP < : 90 Eliquis 5 mg Tablet 5 mg PO BID Qty: 60 0RF insulin glargine [Lantus Solostar U-100 Insulin] 100 unit/mL (3 mL) insulin pen 20 unit subcut QAM Qty: 15 0RF (DME) pen needle, diabetic 32 gauge x 5/16 needle See Rx Instructions .Route Qty: 100 0RF Rx Instructions: As directed Continued (DME) underpads [Bed Underpads] Pad See Rx Instructions .Route Qty: 40 6RF Rx Instructions: As directed (DME) wipes standard See Rx Instructions .Route .MEDSUPPLY Qty: 200 11RF Rx Instructions: As directed (DME) AeroEclipse II Nebulizer Misc See Rx Instructions .Route Qty: 1 0RF Rx Instructions: As directed atorvastatin 80 mg tablet 80 mg PO BEDTIME 90 Days Qty: 90 2RF albuterol sulfate 2.5 mg /3 mL (0.083 %) solution for nebulization 2.5 mg inhalation Q4-6H PRN (Reason: for wheezing) 30 Days Qty: 75 3RF acetaminophen [Tylenol 8 Hour] 650 mg tablet extended release 650 mg PO Q8H PRN (Reason: pain) 30 Days Qty: 90 11RF amlodipine 10 mg tablet 10 mg PO DAILY 90 Days Qty: 90 1RF metformin 1,000 mg tablet 1,000 mg PO BID Qty: 180 0RF (DME) adult diapers pull-ups XXL See Rx Instructions .Route .MEDSUPPLY Qty: 200 11RF Rx Instructions: As directed furosemide 40 mg tablet 40 mg PO DAILY 90 Days Qty: 90 1RF (DME) insulin syringe-needle U-100 [BD Insulin Syringe Ultra-Fine] 0.3 mL 31 gauge x 5/16 syringe See Rx Instructions .Route Qty: 400 3RF Rx Instructions: Use 1 syringe four times a day (DME) FreeStyle Kiya 2 Sensor Kit See Rx Instructions .Route Qty: 1 12RF Rx Instructions: As directed (DME) FreeStyle Kiya 2 [place] Misc See Rx Instructions .Route Qty: 1 0RF Rx Instructions: As directed fluticasone propionate [Flonase Allergy Relief] 50 mcg/actuation spray,suspension 1 spray intranasal DAILY PRN (Reason: Allergy Symptoms) Qty: 16 0RF Rx Instructions: administer into each nostril (DME) pen needle, diabetic [Easy Comfort Pen [place]] 31 gauge x 5/16 needle See Rx Instructions .Route Qty: 100 2RF Rx Instructions: As directed albuterol sulfate [Ventolin HFA] 90 mcg/actuation HFA aerosol inhaler 2 puff PO Q6H PRN (Reason: for wheezing) 30 Days Qty: 18 1RF Trulicity 0.75 mg/0.5 mL pen injector 0.75 mg subcut TU@1430 sennosides [Senna Lax] 8.6 mg tablet 17.2 mg PO BID PRN (Reason: constipation) lidocaine 5 % adhesive patch,medicated 1 patch topical DAILY PRN (Reason: Pain) Rx Instructions: leave on most painful area for up to 12 hrs Discontinued aspirin 81 mg tablet,delayed release (DR/EC) 81 mg PO DAILY 90 Days Qty: 90 0RF Discharge Orders: Discharge Order (Routine); Ordered 02/22/23 Ordered By: Lillian Kent Diet: Diabetic diet Activity on Discharge: As tolerated Stand Alone Forms: Patient Portal Discharge page Care Plan Goals: recovery from critical illness Health Concerns: acute/chronic hypoxic and hypercarbic respiratory failure new-onset AF acute/chronic HFpEF cor pulmonale metabolic encephalopathy Covid-19 infection morbid obesity Plan of Treatment: continue oxygen 2L via nasal cannula during daytime, AVAPS at night take apixaban 5 mg twice daily to prevent stroke from atrial fibrillation [stop aspirin] take diltiazem 360 mg once daily to control atrial fibrillation follow up with Cardiology in 2 weeks re: atrial fibrillation Low-sodium diet: less than 2000 mg of sodium daily. Weigh yourself daily and call your doctor if your weight goes up by more than 3 lb/day or 5 lb/week. take furosemide 40 mg once daily take spironolactone 25 mg once daily completed 10 days of dexamethasone and 10 days of Covid-19 isolation take Lantus 20 units nightly in addition to metformin and Trulicity please follow up with your primary care doctor within 1 week. Return to the hospital if you experience recurrent or worsening symptoms. Assessment: See Discharge Summary.
== END 2023-02-22 16:01 | disposition home health service (06) | DRG 137 ==
LOC: HO.ED 18:31 → HO.EDOVER 19:46 → HO.IMC 02-12 11:10 → HO.ICU 02-12 16:46 → HO.IMC 02-18 15:12
PROVIDERS: Internal Medicine Cardiovascular Disease; Internal Medicine Critical Care Medicine; Nurse Practitioner Acute Care; Physician Assistant Medical; Registered Nurse Community Health; Student in an Organized Health Care Education/Training Program; Admitting Provider Physician Assistant; Emergency Provider Emergency Medicine; PCP Internal Medicine; Visit Provider Family Medicine
DX: U07.1 COVID-19 (principal); J96.21 Acute and chronic respiratory failure with hypoxia; G93.41 Metabolic encephalopathy; I50.33 Acute on chronic diastolic (congestive) heart failure; I27.81 Cor pulmonale (chronic); E87.21 Acute metabolic acidosis; Z68.44 Body mass index [BMI] 60.0-69.9, adult; E66.2 Morbid (severe) obesity with alveolar hypoventilation; I11.0 Hypertensive heart disease with heart failure; Z99.81 Dependence on supplemental oxygen; J96.22 Acute and chronic respiratory failure with hypercapnia; I48.91 Unspecified atrial fibrillation; E83.42 Hypomagnesemia; J44.1 Chronic obstructive pulmonary disease with (acute) exacerbation; E11.65 Type 2 diabetes mellitus with hyperglycemia; Z87.891 Personal history of nicotine dependence; Z79.84 Long term (current) use of oral hypoglycemic drugs; Z79.899 Other long term (current) drug therapy
CPT/HCPCS: 36415; 36600; 71045; 80048; 80053; 80076; 82803; 82947; 83605; 83615; 83735; 83880; 84100; 84145; 84443; 84484; 85025; 85610; 86140; 87040; 87635; 92526; 92610; 93005; 94640; 94660; 97110; 97163; 97167; 97530; 99285; 99291; C1758; J0248; J0456; J0696; J1100; J1160; J1885; J1940; J2270; J2930; J3475; J8540

== ENCOUNTER → 2023-02-11 19:39 | Outpatient (BNV) | payer OTHER, SELFPAY | PROVIDERS: Admitting Provider Physician Assistant; Emergency Provider Emergency Medicine; Visit Provider Physician Assistant | DX: I48.91 Unspecified atrial fibrillation (principal); U07.1 COVID-19; I27.81 Cor pulmonale (chronic); I50.33 Acute on chronic diastolic (congestive) heart failure; J96.21 Acute and chronic respiratory failure with hypoxia; J96.22 Acute and chronic respiratory failure with hypercapnia; I26.09 Other pulmonary embolism with acute cor pulmonale; E11.9 Type 2 diabetes mellitus without complications; G93.41 Metabolic encephalopathy | CPT/HCPCS: 99223; 99232; 99233; 99239; G0180 ==

== ENCOUNTER → 2023-02-11 19:39 | Outpatient (BNV) | payer OTHER, SELFPAY | PROVIDERS: Admitting Provider Physician Assistant; Emergency Provider Emergency Medicine; PCP Internal Medicine; Visit Provider Internal Medicine | DX: U07.1 COVID-19 (principal); E11.9 Type 2 diabetes mellitus without complications; J96.21 Acute and chronic respiratory failure with hypoxia | CPT/HCPCS: 99222; 99232 ==

== ENCOUNTER → 2023-02-11 19:39 | Outpatient (BNV) | payer OTHER, SELFPAY | PROVIDERS: Admitting Provider Physician Assistant; Emergency Provider Emergency Medicine; Visit Provider Internal Medicine Cardiovascular Disease | DX: I48.91 Unspecified atrial fibrillation (principal); U07.1 COVID-19; J96.21 Acute and chronic respiratory failure with hypoxia; I27.81 Cor pulmonale (chronic); E66.9 Obesity, unspecified | CPT/HCPCS: 99222; 99232; 99233 ==

== ENCOUNTER → 2023-02-11 19:39 | Outpatient (BNV) | payer OTHER, SELFPAY | PROVIDERS: Admitting Provider Physician Assistant; Emergency Provider Emergency Medicine; PCP Internal Medicine; Visit Provider Internal Medicine Cardiovascular Disease | DX: E83.42 Hypomagnesemia (principal); I48.91 Unspecified atrial fibrillation; U07.1 COVID-19; E11.9 Type 2 diabetes mellitus without complications; J96.21 Acute and chronic respiratory failure with hypoxia; R06.89 Other abnormalities of breathing; J44.1 Chronic obstructive pulmonary disease with (acute) exacerbation; I50.9 Heart failure, unspecified; I27.81 Cor pulmonale (chronic); I26.09 Other pulmonary embolism with acute cor pulmonale | CPT/HCPCS: 99291; 99292 ==

== ENCOUNTER 2023-03-14 10:17 | Outpatient (AMB) | payer OTHER, SELFPAY ==
--- NOTE | 2023-03-14 10:20 | MHC.OFFVIS ---
Intake Vital Signs 03/14/23 10:25 Height 5 ft 2 in BP 124/67 Blood Pressure Location Rt brachial Position Sitting Pulse Oximetry (%) 95 Oxygen Delivery Method Nasal Cannula Oxygen Flow Rate 3 Intake Visit Reasons: taurus Allergies No Known Allergies Allergy (Verified 03/14/23 10:24) HPI taurus HPI Details 62-year-old lady with underlying morbid obesity, CO2 retention, heart failure, AFib, now supplemental oxygen 2 L dependent, followed for pulmonary component to dyspnea on exertion/COPD/TAURUS.? She has been using Advair, Combivent, and albuterol MDI with reasonable control of asthma symptoms. She has been using CPAP to control her underlying sleep apnea. Of the last several weeks patient retained move fluid and now is in heart failure exacerbation with significant dyspnea and worsening AFib. [facility] Medical History (Updated 03/14/23 @ 10:44 by Tadeo Orantes MD) COPD (chronic obstructive pulmonary disease) TAURUS (obstructive sleep apnea) Oxygen dependent Acute on chronic respiratory failure with hypoxia and hypercapnia Cor pulmonale (chronic) Screening for breast cancer Screening for colon cancer Cervical cancer screening Foot pain Diastolic CHF Obstructive sleep apnea Mixed incontinence urge and stress Morbid obesity Cocaine use disorder, mild, in sustained remission Obesity hypoventilation syndrome Obesity COPD (chronic obstructive pulmonary disease) Congestive heart failure Redness of left eye Cerebrovascular accident involving posterior circulation Moderate asthma Essential hypertension Diabetes mellitus Surgical History History of open reduction and internal fixation (ORIF) procedure History of tubal ligation History of cholecystectomy History of open reduction and internal fixation (ORIF) procedure History of tubal ligation History of cholecystectomy Family History Father Medical history unknown Mother Diabetes Hypertension Father Medical history unknown Mother Hypertension Diabetes Other Substance use disorder Social History Household Members: Spouse Housing: Apartment Do you presently have visiting nurse or other home services: Yes Alcohol intake: former Patient Tobacco Use Status: Former Tobacco user Tobacco use type: Cigarette Cigarette Packs Per Day: 0.75 Cigarettes Per Day: 15.0 Years Smoked: 31 years e-Cigarette/Vaping Use: Never Used Second Hand Smoke Exposure: Yes Substance Use Type: Crack/Cocaine Advance Directives Date on File: 08/28/21 service: No Current occupational status: disabled Cognitive needs: Yes (walker/wheelchair/cane) Hearing needs: No Vision needs: Yes Review of Systems Const Denies daytime sleepiness, Denies excessive sweating, Denies fatigue, Denies fever(s), Reports lethargy, Reports malaise, Denies night sweats, Denies snoring and Denies weight loss Eyes Denies blurry vision and Denies itchy eyes ENT Denies nasal congestion, Denies post nasal drip, Denies sinus pain, Denies sinus pressure and Denies other ( Thrush) Card Denies chest pain, Reports pedal edema, Denies dyspnea, Reports dyspnea on exertion, Reports orthopnea and Reports paroxysmal nocturnal dyspnea Resp Denies cough, Denies hemoptysis, Denies excessive phlegm production, Denies dyspnea, Reports dyspnea on exertion, Denies snoring and Denies wheezing GI Denies abdominal pain and Denies heartburn Musc Denies myalgias, Denies arthralgias and Denies joint swelling Skin/Breast Denies rash Neuro Denies memory loss and Denies seizure-like activity Psych Denies abnormal sleep pattern, Denies anxiety and Denies memory loss Endo Denies excessive sweating, Denies fatigue and Denies heat intolerance Tony/Lymph Denies easy bruising Aller/Immun Denies itchy eyes, Denies seasonal rhinorrhea and Denies wheezing Physical Exam Vital Signs: Last Vital Signs BP 124/67 03/14/23 10:25 Pulse Ox 95 03/14/23 10:25 Oxygen Delivery Method Nasal Cannula 03/14/23 10:25 Oxygen Flow Rate 3 03/14/23 10:25 Const General: no acute distress and alert Nutritional Appearance: obese Orientation/consciousness: Other orientation findings ( oriented) HEENT Head: Yes atraumatic Eyes General: appearance normal, both eyes and all related structures Sclerae: sclerae normal EOM: EOMs intact bilaterally Neck Neck: Yes supple Lymphatic: no lymphadenopathy noted Resp Effort & Inspection: normal respiratory effort and no use of accessory muscles Auscultation: crackles (Diffuse bilateral) Cardio Rate: regular rate Rhythm: regular rhythm Heart sounds: no gallops, no murmurs and no rubs Skin General skin exam: other ( warm) Extrem General: No clubbing, No cyanosis and Yes edema (3+ bilateral) Assessment & Plan Assessment & Plan (1) COPD (chronic obstructive pulmonary disease): Code(s): J44.9 - Chronic obstructive pulmonary disease, unspecified Plan: Baseline well controlled on Advair and albuterol. Continue current regimen. (2) Oxygen dependent: Code(s): Z99.81 - Dependence on supplemental oxygen Plan: Continue supplemental oxygen to maintain O2 saturation of 88-93% (3) Acute on chronic heart failure with preserved ejection fraction (HFpEF): Code(s): I50.33 - Acute on chronic diastolic (congestive) heart failure Plan: Now with an acute exacerbation with current diuretic dosing sufficient. Will switch furosemide 40 mg daily to Bumex 1 mg twice a day. (4) TAURUS (obstructive sleep apnea): Code(s): G47.33 - Obstructive sleep apnea (adult) (pediatric) Plan: Well controlled on current CPAP therapy. Continue CPAP therapy. Medications: New bumetanide 1 mg PO BID 30 days 60 tabs 6RF potassium chloride 20 mEq PO DAILY 30 ea 6RF 30 days Discontinued spironolactone Discontinued Reason: Doctor's Order 25 mg See Protocol PO DAILY 30 tabs 0RF furosemide Discontinued Reason: Doctor's Order 40 mg PO DAILY 90 days 90 tabs 1RF Coding Level of Care Code Est Pt Level 4 (18769) Diagnoses COPD (chronic obstructive pulmonary disease) J44.9 Oxygen dependent Z99.81 Acute on chronic heart failure with preserved ejection fraction (HFpEF) I50.33 TAURUS (obstructive sleep apnea) G47.33
[2023-03-14 10:25] VITALS: BP 124/67; O2SAT 95
== END 2023-03-14 10:43 | disposition home or self-care (01) ==
PROVIDERS: PCP Internal Medicine; Visit Provider Internal Medicine Pulmonary Disease
DX: J44.9 Chronic obstructive pulmonary disease, unspecified (principal); Z99.81 Dependence on supplemental oxygen; I50.33 Acute on chronic diastolic (congestive) heart failure; G47.33 Obstructive sleep apnea (adult) (pediatric)
CPT/HCPCS: 99214

== ENCOUNTER → 2023-03-14 10:17 | Outpatient (BNVA) | payer OTHER, SELFPAY | PROVIDERS: PCP Internal Medicine; Visit Provider Internal Medicine Pulmonary Disease | DX: J44.9 Chronic obstructive pulmonary disease, unspecified (principal); I50.33 Acute on chronic diastolic (congestive) heart failure; G47.33 Obstructive sleep apnea (adult) (pediatric); Z99.81 Dependence on supplemental oxygen | CPT/HCPCS: 99212 ==

== ENCOUNTER 2023-03-23 08:29 | Inpatient (IN) | payer OTHER, SELFPAY ==
[2023-03-23] VITALS (12 sets, daily range): BP systolic 118–173; BP diastolic 72–111; PULSE 96–154; RESP 14–24; TEMP 36.6–36.9; O2SAT 6–93; BMI 55.1
--- NOTE | ~2023-03-23 | XR_ITS ---
EXAMINATION: XR CHEST CLINICAL INFORMATION: vent dysynchrony..respiratory failire..new trach COMPARISON: 03/23/2023 TECHNIQUE: Frontal view of the chest was obtained. FINDINGS: Tracheostomy tube is present. Lungs are mildly hypoinflated. There are increasing bibasilar opacities, hazy on the right and retrocardiac on the left. Component of pleural effusions is suspected. No evidence of pneumothorax. No overt pulmonary edema. Chronic silhouette remains enlarged. No acute osseous findings are seen. XR/XR chest 1V IMPRESSION: Increasing bibasilar opacities, which could reflect a combination of layering pleural effusions and underlying atelectasis versus consolidation.
--- NOTE | ~2023-03-23 | XR_ITS ---
EXAMINATION: XR CHEST CLINICAL INFORMATION: Hypoxia COMPARISON: 04/01/2023 TECHNIQUE: Frontal view of the chest was obtained. FINDINGS: Evaluation limited due to patient rotation. Redemonstration of tracheostomy tube in position, allowing for patient rotation. There is a suggestion of a small air-fluid level at the left apex, possibly related to hydropneumothorax versus collection. Redemonstration of volume loss with improvement of previously demonstrated near complete opacification of the left hemithorax with improved aeration of the upper left hemithorax and persistent diffuse left airspace disease/consolidation and pleural effusion. Prominent possible bronchial thickening in the proximal lower right lung previously noted, difficult to evaluate due to rotation. XR/XR chest 1V IMPRESSION: Small air-fluid level at the left apex, possibly related to small pneumothorax/hydropneumothorax versus focal complex collection. Correlation with clinical exam recommended to further management. Repeat view recommended for further evaluation. CT scan of the chest without considered for further evaluation This study was presented today 04/03/2023 at 10:57 AM for interpretation. Stat results discussed with Mary Casey RN and Dr. Day at 11:00 AM, covering for ordering provider.
--- NOTE | ~2023-03-23 | XR_ITS ---
EXAMINATION: XR CHEST CLINICAL INFORMATION: Hypoxia COMPARISON: Previous chest x-ray most recent 03/29/2023 TECHNIQUE: Frontal view of the chest was obtained. FINDINGS: There is increasing volume loss and atelectasis/consolidation of the left hemithorax with near complete white out. Follow-up chest x-ray following respiratory treatment recommended. There is a tracheostomy tube in satisfactory. There may be bronchial wall thickening right lung base. The right lung is otherwise clear. No significant effusion. No pneumothorax. XR/XR chest 1V IMPRESSION: Increasing volume loss and near complete white out of the left hemithorax suggestive of left lung atelectasis-consolidation. Follow-up chest x-ray following respiratory treatment recommended. Findings will be communicated by the Jul[facility] workflow correctional corporal.
--- NOTE | ~2023-03-23 | XR_ITS ---
EXAMINATION: XR CHEST CLINICAL INFORMATION: Possible left apical air-fluid level. Try lordotic to to open left apex. COMPARISON: 04/02/2023, 04/01/2023. TECHNIQUE: Frontal, lordotic, AP upright portable view of the chest was obtained FINDINGS: Evaluation remains limited due to patient rotation. Redemonstration of tracheostomy tube in position, allowing for patient rotation. Previously questioned possible left apical air-fluid level is not clearly visualized. There has been improved aeration of the left upper lung with decreased consolidation in the [id number]-zt-[id number] left lung and wimdq-[id number]-majygipo left pleural effusion. Low lung volumes. Stable cardiomediastinal silhouette. Mild right basilar opacities difficult to evaluate due to rotation. XR/XR chest 1V IMPRESSION: Previously questioned possible left apical air-fluid level is not clearly visualized. There has been improved aeration of the left upper lung with decreased consolidation in the [id number]-lc-[id number] left lung and ewxdq-fi-fgetmubs left pleural effusion. Continued surveillance based on clinical exam recommended.Redemonstration of mild bibasilar opacities, likely representing atelectasis/scar rather than pneumonia. No gross pleural effusion. No new focal consolidation.
--- NOTE | ~2023-03-23 | XR_ITS ---
EXAMINATION: XR CHEST CLINICAL INFORMATION: Status post trach replacement. COMPARISON: 03/29/2023 TECHNIQUE: Frontal view of the chest was obtained. FINDINGS: The endotracheal tube tip terminates 4 cm above the fernando. Stable bibasilar opacities with suspected increasing left pleural effusion. Cardiac silhouette is partially obscured. XR/XR chest 1V IMPRESSION: As above.
--- NOTE | ~2023-03-23 | XR_ITS ---
EXAMINATION: XR chest 1V CLINICAL INFORMATION: Reason for Exam sob COMPARISON: 02/18/2023 TECHNIQUE: XR chest 1V Tubes and lines: None Lungs and pleura: Vascular redistribution suggesting congestion. Study limited motion artifact Heart and mediastinum: Cardiac silhouette is enlarged. This is exaggerated by AP technique.. Bones/soft tissue: Skeletal structures included are normal for patient's age. XR/XR chest 1V IMPRESSION: * Limited study motion artifact projection. * Mild vascular congestion. * Cardiac silhouette is enlarged, this is exaggerated by AP technique.
--- NOTE | 2023-03-23 08:35 | ECG_ITS ---
Test Reason : DYSPNEA Blood Pressure : / mmHG Vent. Rate : 112 BPM Atrial Rate : 000 BPM P-R Int : 000 ms QRS Dur : 080 ms QT Int : 324 ms P-R-T Axes : 000 019 199 degrees QTc Int : 442 ms Atrial fibrillation with rapid ventricular response Low voltage QRS Nonspecific T wave abnormality Abnormal ECG When compared with ECG of 11-FEB-2023 18:08, Heart rate has decreased Referred By: Kadie Waddell Electronically Signed By:MCKAYLA BAIRD MD
[2023-03-23] MEDS: dilTIAZem HCL 50 MG/10 ML VIAL 10 MG IVPUSH ×2 (08:50→08:51)
[2023-03-23 08:58] LABS: ABG Base Excess 24.2 mmol/L; ABG HCO3 53 mmol/L (22-26); ABG pCO2 79 mmHg (32-45); ABG pH 7.43 (7.35-7.45); ABG pO2 87 mmHg (83-108)
[2023-03-23] MEDS: methylPREDNISolone Sod Succ 125 MG/2 ML VIAL IVPUSH (09:03)
[2023-03-23] MEDS: Albuterol/Iprat 2.5/0.5MG 3 ML AMPUL.NEB INHALE (09:07)
[2023-03-23 09:09] LABS: Basophils Percent Auto 0.3 % (0-2); Eosinophils Absolute Auto 0.1 X10*3/uL (0.0-0.4); Eosinophils Percent Auto 0.9 % (0-4); Hematocrit 32.4 % (37.0-47.0); Hemoglobin 9.6 g/dl (12.0-16.0); Imm Gran Abs Auto 0.14 X10*3/uL (0.00-0.03); Imm Gran Pct Auto 1.2 % (0.0-0.4); Lymphocytes Absolute Auto 1.4 X10*3/uL (1.2-4.9); Lymphocytes Percent Auto 12.1 % (20-40); MANUAL DIFF FLAG NO; Mean Corpuscular HGB Conc 29.6 g/dl (31.0-35.0); Mean Corpuscular Hemoglobin 26.1 pg (27.0-33.0); Monocytes Absolute Auto 0.6 X10*3/uL (0.1-1.2); NRBC Pct Auto 0.3 /100WBC (0.0-0.2); Neutrophils Absolute Auto 9.4 x10*3/uL (2.0-8.3); Neutrophils Percent Auto 80.5 % (45-73); Platelet Count 467 X10*3/uL (160-400); Red Blood Count 3.68 X10*6/uL (4.20-5.50); White Blood Count 11.6 X10*3/uL (4.8-10.8)
--- NOTE | 2023-03-23 09:13 | ED.GENADULT ---
HPI - General Adult General Chief complaint: Dyspnea Stated complaint: RESPIRATORY DISTRESS Time Seen by Provider: 03/23/23 09:50 Source: patient Mode of arrival: ambulatory Limitations: no limitations History of Present Illness HPI narrative: 62-year-old female history of COPD, asthma, metabolic encephalopathy, acute on chronic respiratory failure with hypoxia and hypercapnia, heart failure, obesity, AFib anticoagulated, presenting with shortness of breath x2 days acutely worsening this morning. According to patient the oxygen company went in to change a filter on her oxygen device, she reports since then she feels like the machine was not working appropriately shortness of breath worsened this morning called 911, was noted to be 70% on 2 L when they arrived, with use of accessory muscles, speaking in short sentences, states she is very uncomfortable. Denies chest pain, fevers, chills, nausea, vomiting, abdominal pain. Related Data Home Medications Medication Instructions Recorded Confirmed lidocaine 5 % topical patch 1 patch topical DAILY PRN Pain 01/07/23 02/11/23 sennosides 8.6 mg tablet (Senna 17.2 mg PO BID PRN constipation 01/07/23 02/11/23 Lax) dulaglutide 0.75 mg/0.5 mL 0.75 mg subcut TU@1430 02/11/23 02/11/23 subcutaneous pen injector (Trulicity) Previous Rx's Medication Instructions Recorded underpads (Bed Underpads) #40 ea 01/23/22 wipes #200 ea 01/23/22 nebulizers (AeroEclipse II #1 ea 02/01/22 Nebulizer) atorvastatin 80 mg tablet 80 mg PO BEDTIME 90 days #90 tabs 05/18/22 acetaminophen 650 mg 650 mg PO Q8H PRN pain 30 days #90 08/19/22 tablet,extended release (Tylenol 8 tabs Hour) amlodipine 10 mg tablet 10 mg PO DAILY 90 days #90 tabs 09/27/22 metformin 1,000 mg tablet 1,000 mg PO BID #180 tabs 10/29/22 adult diapers pull-ups #200 ea 01/04/23 flash glucose scanning reader #1 ea 01/22/23 (FreeStyle Kiya 2 [place]) flash glucose sensor (FreeStyle #1 ea 01/22/23 Kiya 2 Sensor kit) insulin syringe-needle U-100 0.3 #400 ea 01/22/23 mL 31 gauge x 5/16 (BD Insulin Syringe Ultra-Fine) fluticasone propionate 50 1 spray intranasal DAILY PRN 01/26/23 mcg/actuation nasal Allergy Symptoms #16 grams spray,suspension (Flonase Allergy Relief) pen needle, diabetic 31 gauge x #100 ea 02/01/23 5/16 (Easy Comfort Pen [place]) albuterol sulfate 90 mcg/actuation 2 puff PO Q6H PRN for wheezing 30 02/05/23 aerosol inhaler (Ventolin HFA) days #18 ea apixaban 5 mg tablet (Eliquis) 5 mg PO BID #60 tabs 02/22/23 diltiazem HCl 180 mg 360 mg PO DAILY #30 caps 02/22/23 capsule,extended release 24 hr (Cardizem CD) insulin glargine 100 unit/mL (3 20 unit (0.2 mL) subcut QAM #15 mL 02/22/23 mL) subcutaneous pen (Lantus Solostar U-100 Insulin) pen needle, diabetic 31 gauge x #50 ea 02/22/2310/23 (Pen Needle) pen needle, diabetic 32 gauge x #100 ea 02/22/23 5 albuterol sulfate 2.5 mg/3 mL 2.5 mg (3 mL) inhalation Q4-6H PRN 03/12/23 (0.083 %) solution for nebulization for wheezing 30 days #75 mL bumetanide 1 mg tablet 1 mg PO BID 30 days #60 tabs 03/14/23 potassium chloride 20 mEq oral 20 meq PO DAILY 30 days #30 ea 03/14/23 packet Allergies Allergy/AdvReac Type Severity Reaction Status Date / Time No Known Allergies Allergy Verified 03/14/23 10:24 Review of Systems Review of Systems: Constitutional : No Weight loss, No Fever, No Chills, No Fatigue, No Malaise ENT/Mouth : No sore throat, No Rhinorrhea Eyes: No Eye Pain, No Swelling, No Redness Cardiovascular : No Chest Pain, + SOB, No Dyspnea on Exertion, No Orthopnea, No Edema, No Palpitations Respiratory : No Cough, No Sputum, No Wheezing Gastrointestinal : No Nausea, No Vomiting, No Diarrhea, No Constipation, No abdominal Pain, No Hematochezia, No Melena Genitourinary : No Dysuria, No Urinary Frequency, No Hematuria, Musculoskeletal : No joint pain, No Myalgias, No Joint Swelling Skin : No Skin Lesions, No rash Neuro : No Weakness, No Numbness, No Dizziness, No Headache Psych : No Anxiety/Panic, No Depression All other systems reviewed and are negative Yes all other systems are reviewed and are negative [facility] Past Medical History Attestation statement: The following information was validated with the patient. Source: old records reviewed and nursing notes reviewed Medical History COPD (chronic obstructive pulmonary disease) TAURUS (obstructive sleep apnea) Oxygen dependent Acute on chronic respiratory failure with hypoxia and hypercapnia Cor pulmonale (chronic) Screening for breast cancer Screening for colon cancer Cervical cancer screening Foot pain Diastolic CHF Obstructive sleep apnea Mixed incontinence urge and stress Morbid obesity Cocaine use disorder, mild, in sustained remission Obesity hypoventilation syndrome Obesity COPD (chronic obstructive pulmonary disease) Congestive heart failure Redness of left eye Cerebrovascular accident involving posterior circulation Moderate asthma Essential hypertension Diabetes mellitus Surgical History History of open reduction and internal fixation (ORIF) procedure History of tubal ligation History of cholecystectomy History of open reduction and internal fixation (ORIF) procedure History of tubal ligation History of cholecystectomy Family History Family History Father Medical history unknown Mother Diabetes Hypertension Father Medical history unknown Mother Hypertension Diabetes Other Substance use disorder Social History Social History Household Members: Spouse Housing: Apartment Do you presently have visiting nurse or other home services: Yes Alcohol intake: former Patient Tobacco Use Status: Former Tobacco user Tobacco use type: Cigarette Cigarette Packs Per Day: 0.75 Cigarettes Per Day: 15.0 Years Smoked: 31 years e-Cigarette/Vaping Use: Never Used Second Hand Smoke Exposure: Yes Substance Use Type: Crack/Cocaine Advance Directives: No Advance Directives Information Provided: No Advance Directives Date on File: 08/28/21 service: No Current occupational status: disabled Cognitive needs: Yes (walker/wheelchair/cane) Hearing needs: No Vision needs: Yes Physical Exam ED Vital Signs: Vital Signs - 24 hr 03/23/23 08:33 03/23/23 08:39 03/23/23 08:59 Pulse Rate 154 H 107 H Respiratory Rate 24 H 22 H 18 Blood Pressure 173/111 H 118/78 Pulse Oximetry 91 L 91 L Oxygen Delivery Method CPAP Oxygen Flow Rate 40 03/23/23 09:09 03/23/23 09:33 03/23/23 10:00 Pulse Rate 120 H 112 H Respiratory Rate 21 H Blood Pressure 137/82 Pulse Oximetry 86 L 93 Oxygen Delivery Method Nasal Cannula Oxymask Oxygen Flow Rate 4.5 10 BMI result Body Mass Index 55.1 patient hypoxic and tachycardic Appearance: Alert.? Oriented X3.?+ moderate acute distress.? speaking in short sentences Head: Normocephalic, atraumatic, no step-offs or deformities Eyes: Pupils equal, round and reactive to light.? Neck: Normal inspection.? Neck supple.? CVS: Rapid irregularly irregular rhythm with a regular pulses bilaterally. ? Respiratory: + moderate respiratory distress.? Breath sounds diminished b/l w/ fiant expiratory wheezing. + accessory muscle use ? Abdomen: Soft and nontender.? Skin: Skin warm and dry.? Normal skin color.? Normal skin turgor.? Extremities: No lower extremity edema.? No calf ttp. 5/5 strength to bilateral upper and lower extremities Neuro: Oriented X 3.? No motor deficit.? No sensory deficit. CN 2-12 intact Course Reevaluation(s) Reevaluation #1: Patient's CBC with slight normocytic anemia with leukocytosis which is likely reactive to acute hypoxic respiratory failure unlikely from infection. Patient is noted to have elevated lactic acid 2.9 likely secondary to metformin unlikely secondary to sepsis. Will repeat. Pending chest x-ray and chemistry. Plan is for hospital admission. Weaning patient off of CPAP at this time, AFib is now rate controlled, with Cardizem will start Cardizem drip for control. Patient feeling better, able to speak in longer sentences, much more comfortable appearing. Time: 09:22 Reevaluation #2: Chemistry with elevated carbon dioxide, no other acute findings on chemistry, BNP is elevated 196 will give small dose of Lasix. At this time plan is for hospital admission. Patient is saturating well on OxyMask. Time: 10:45 Medications Administered Discontinued Medications Generic Name Dose Route Start Last Admin Trade Name Ange PRN Reason Stop Dose Admin Albuterol/Ipratropium 3 ml 03/23/23 09:03 03/23/23 09:07 Albuterol/Iprat 2.5/0.5mg 3 Ml Ampul.Neb INHALE 03/23/23 09:04 3 ml ONCE ONE Administration Diltiazem HCl 10 mg 03/23/23 08:36 03/23/23 08:50 Diltiazem Hcl 50 Mg/10 Ml Vial IVPUSH 03/23/23 08:37 10 mg STAT STA Administration Diltiazem HCl 10 mg 03/23/23 08:36 03/23/23 08:51 Diltiazem Hcl 50 Mg/10 Ml Vial IVPUSH 03/23/23 08:37 10 mg STAT STA Administration Methylprednisolone Sodium Succinate 125 mg 03/23/23 08:49 03/23/23 09:03 Methylprednisolone Sod Succ 125 Mg/2 Ml Vial IVPUSH 03/23/23 08:50 125 mg ONCE ONE Administration Morphine Sulfate 2 mg 03/23/23 08:50 03/23/23 09:36 Morphine Sulfate 2 Mg/Ml Cartridge IVPUSH 03/23/23 08:51 2 mg ONCE ONE Administration Protocol Medical Decision Making Medical Decision Making [facility] Narrative: 62 yo F presents w/ respiratory distress sob since yesterday acutely worsening this am PE- + moderate respiratory distress.? Breath sounds diminished b/l w/ fiant expiratory wheezing. + accessory muscle use ?. Irregularly irregular rhythm noted. Concerns for acute on chronic respiratory faliure w/ hypoxia vs chornic lung disease vs viral illness vs chf vs pna . Unlikely pe ( anticoagulated), acs, dissection, pneumothorax . Rhythm was likely atrial fibrillation patient with history of this will rule out RVR Plan- labs, imaging, abg, xray, viral test Differential Diagnosis Differential Diagnoses: The differential diagnosis associated with the presentation includes Concerns for acute on chronic respiratory faliure w/ hypoxia vs chornic lung disease vs viral illness vs chf vs pna . Unlikely pe ( anticoagulated), acs, dissection, pneumothorax Rhythm was likely atrial fibrillation patient with history of this will rule out RVR Admission/Observation Consideration of admission/observation: Escalation of care including admission/observation considered Consult Healthcare Provider Management of the patient was discussed with: Hospitalist and Fashion Designer Lab Data MDM Lab Attestation statement: I reviewed the patient's lab results. 03/23/23 09:04 03/23/23 08:45 Labs: Lab Results 03/23/23 03/23/23 03/23/23 Range/Units 08:45 08:53 09:04 WBC 11.6 H (4.8-10.8) X10*3/uL RBC 3.68 L D (4.20-5.50) X10*6/uL Hgb 9.6 L D (12.0-16.0) g/dl Hct 32.4 L (37.0-47.0) % MCV 88.0 (80.0-98.0) fL MCH 26.1 L (27.0-33.0) pg MCHC 29.6 L (31.0-35.0) g/dl RDW 16.0 (11.0-16.0) % Plt Count 467 H (160-400) X10*3/uL MPV 9.0 L (9.4-12.3) fL Immature Gran % (Auto) 1.2 H (0.0-0.4) % Neut % (Auto) 80.5 H (45-73) % Lymph % (Auto) 12.1 L (20-40) % [place] % (Auto) 5.0 (2-11) % Eos % (Auto) 0.9 (0-4) % Baso % (Auto) 0.3 (0-2) % Lymph # (Auto) 1.4 (1.2-4.9) X10*3/uL [place] # (Auto) 0.6 (0.1-1.2) X10*3/uL Eos # (Auto) 0.1 (0.0-0.4) X10*3/uL Baso # (Auto) 0.0 (0.0-0.2) X10*3/uL Abs Immat Gran (auto) 0.14 H (0.00-0.03) X10*3/uL Absolute Neuts (auto) 9.4 H (2.0-8.3) x10*3/uL Absolute Nucleated RBC 0.030 H (0.0-0.012) X10*3/uL Nucleated RBC % (auto) 0.3 H (0.0-0.2) /100WBC Hold Blue Top SEE NOTE O2 Saturation 97.0 % ABG pH at Pt Temp 7.43 (7.35-7.45) ABG pCO2 at Pt Temp 79 H* (32-45) mmHg ABG pO2 at Pt Temp 87 (83-108) mmHg ABG HCO3 53 H (22-26) mmol/L ABG Base Excess (Actual) 24.2 mmol/L Sodium 141 (135-145) mmol/L Potassium 4.6 D (3.3-5.1) mmol/L Chloride 88 L (96-108) mmol/L Carbon Dioxide 38 H (22-29) mmol/L Anion Gap 20 (12-20) BUN 10 (9-16) mg/dL Creatinine 0.65 (0.5-1.4) mg/dL Estim Creat Clear Calc 108.2 Estimated GFR > 60 Random Glucose 152 H (60-115) mg/dL Lactic Acid 2.9 H* (0.5-2.0) mmol/L Calcium 8.5 D (8.4-10.2) mg/dL Magnesium 1.6 (1.6-2.6) mg/dL Total Bilirubin 0.5 (0.0-1.0) mg/dL AST 21 (5-31) U/L ALT 12 (0-31) U/L Alkaline Phosphatase 80 (39-117) U/L Troponin I High Sens 6.0 D (<3.5-17.0) ng/L B-Natriuretic Peptide 196 H (<100) pg/mL Total Protein 7.6 (6.5-8.0) g/dL Albumin 4.1 (3.5-5.0) g/dL Lipase 21 (8-78) U/L Ethyl Alcohol < 10 mg/dL ABG Data Attestation ABG: I personally reviewed and interpreted this ABG as follows: Interpretation: Slightly hypercarbic normal pH. Independent Interpretation I performed an independent interpretation of an: EKG (Ventricular rate of 112, peer varies, QRS normal, QT/QTC normal. EKG with AFib with rapid ventricular response no ST elevations or inversions concerning for acute ischemia.) and Plain X-Ray Radiology Impression Discussion of test interpretation with radiology: I have reviewed the radiologist's reading. External Record Review External record reviewed: Inpatient record, Office record, Outpatient record, Prior outpatient labs, Prior outpatient radiology, Primary care record and Outside ED record Chronic Conditions Patient?s care impacted by: Diabetes and Other (obesity, taurus, htn, chf ) Critical Care Time Critical Care Time Critical Care Time: Yes Total Critical Care Time: 35 Attestation: I attest to this time spent taking care of the patient, obtaining history, physical, reviewing labs, imaging, speaking to my attending, speaking to specialist. Discharge Plan Discharge Clinical Impression: Acute on chronic respiratory failure with hypoxia and hypercapnia Patient Disposition: Still a Patient Prescriptions: No Action (DME) underpads [Bed Underpads] Pad See Rx Instructions .Route Qty: 40 6RF Rx Instructions: As directed (DME) wipes standard See Rx Instructions .Route .MEDSUPPLY Qty: 200 11RF Rx Instructions: As directed (DME) AeroEclipse II Nebulizer Misc See Rx Instructions .Route Qty: 1 0RF Rx Instructions: As directed atorvastatin 80 mg tablet 80 mg PO BEDTIME 90 Days Qty: 90 2RF acetaminophen [Tylenol 8 Hour] 650 mg tablet extended release 650 mg PO Q8H PRN (Reason: pain) 30 Days Qty: 90 11RF amlodipine 10 mg tablet 10 mg PO DAILY 90 Days Qty: 90 1RF metformin 1,000 mg tablet 1,000 mg PO BID Qty: 180 0RF (DME) adult diapers pull-ups XXL See Rx Instructions .Route .MEDSUPPLY Qty: 200 11RF Rx Instructions: As directed (DME) insulin syringe-needle U-100 [BD Insulin Syringe Ultra-Fine] 0.3 mL 31 gauge x 5/16 syringe See Rx Instructions .Route Qty: 400 3RF Rx Instructions: Use 1 syringe four times a day (DME) FreeStyle Kiya 2 Sensor Kit See Rx Instructions .Route Qty: 1 12RF Rx Instructions: As directed (DME) FreeStyle Kiya 2 [place] Misc See Rx Instructions .Route Qty: 1 0RF Rx Instructions: As directed fluticasone propionate [Flonase Allergy Relief] 50 mcg/actuation spray,suspension 1 spray intranasal DAILY PRN (Reason: Allergy Symptoms) Qty: 16 0RF Rx Instructions: administer into each nostril (DME) pen needle, diabetic [Easy Comfort Pen [place]] 31 gauge x 5/16 needle See Rx Instructions .Route Qty: 100 2RF Rx Instructions: As directed albuterol sulfate [Ventolin HFA] 90 mcg/actuation HFA aerosol inhaler 2 puff PO Q6H PRN (Reason: for wheezing) 30 Days Qty: 18 1RF albuterol sulfate 2.5 mg /3 mL (0.083 %) solution for nebulization 2.5 mg inhalation Q4-6H PRN (Reason: for wheezing) 30 Days Qty: 75 3RF Trulicity 0.75 mg/0.5 mL pen injector 0.75 mg subcut TU@1430 diltiazem HCl [Cardizem CD] 180 mg Capsule,Extended Release 24hr 360 mg PO DAILY Qty: 30 0RF Protocol: Hold for SBP/HR < HOLD for SBP < : 90 HOLD for HR < : 60 Eliquis 5 mg Tablet 5 mg PO BID Qty: 60 0RF insulin glargine [Lantus Solostar U-100 Insulin] 100 unit/mL (3 mL) insulin pen 20 unit subcut QAM Qty: 15 0RF (DME) pen needle, diabetic 32 gauge x 5/16 needle See Rx Instructions .Route Qty: 100 0RF Rx Instructions: As directed (DME) pen needle, diabetic [Pen Needle] 31 gauge x 5/16 needle See Rx Instructions .Route Qty: 50 0RF Rx Instructions: As directed sennosides [Senna Lax] 8.6 mg tablet 17.2 mg PO BID PRN (Reason: constipation) lidocaine 5 % adhesive patch,medicated 1 patch topical DAILY PRN (Reason: Pain) Rx Instructions: leave on most painful area for up to 12 hrs bumetanide 1 mg tablet 1 mg PO BID 30 Days Qty: 60 6RF potassium chloride 20 mEq packet 20 meq PO DAILY 30 Days Qty: 30 6RF
[2023-03-23 09:18] LABS: Lactic Acid 2.9 mmol/L (0.5-2.0)
[2023-03-23 09:20] LABS: Ethanol < 10 mg/dL
[2023-03-23 09:23] LABS: Alanine Aminotransferase 12 U/L (0-31); Albumin Level 4.1 g/dL (3.5-5.0); Alkaline Phosphatase 80 U/L (39-117); Anion Gap 20 (12-20); Aspartate Amino Transferase 21 U/L (5-31); Bilirubin Total 0.5 mg/dL (0.0-1.0); Blood Urea Nitrogen 10 mg/dL (9-16); Calcium 8.5 mg/dL (8.4-10.2); Carbon Dioxide 38 mmol/L (22-29); Chloride 88 mmol/L (96-108); Creatinine Clr Calc Pharmacy 108.2; Estimated Glomerular Filt Rate > 60; Glucose Random 152 mg/dL (60-115); Lipase 21 U/L (8-78); Magnesium 1.6 mg/dL (1.6-2.6); Potassium 4.6 mmol/L (3.3-5.1); Sodium 141 mmol/L (135-145); Total Protein 7.6 g/dL (6.5-8.0)
[2023-03-23 09:27] LABS: B Type Natriuretic Peptide 196 pg/mL (<100)
[2023-03-23] MEDS: Morphine Sulfate 2 MG/ML CARTRIDGE IVPUSH (09:36)
--- NOTE | 2023-03-23 09:54 | PC.NURSE ---
cardizem drip started at 10mg/hr. will titrate as needed. RT called/notified of pt's O2 decrease at this time. pt resting at 81% on 6.5 via NC. will switch to oxymask.
--- NOTE | 2023-03-23 10:00 | PC.NURSE ---
pt now switched over to oxymask at this time. pt resting at 93% on 10L via oxymask. provider aware and bedside at this time. pt currently displays no signs of distress. able to speak in full, clear sentences w/o difficulty. no WOB/retractions shown at this time. pt bedside for support.
[2023-03-23 10:27] LABS: ABG Refer to POC result
--- NOTE | 2023-03-23 10:33 | PC.NURSE ---
pt cardizem drip titrated by 5mg/hr per protocol. pt now resting at 91% via 6L oxymask. p's O2 fluctuating between 83%-92%. no wob shown at this time. resting comfortably w/ her eyes closed in no apparent distress. bedside for support. call dumont placed within reach.
[2023-03-23 10:51] LABS: Reflex Lactate? Lactic Acid Added
[2023-03-23] MEDS: Furosemide 20 MG/2 ML VIAL IVPUSH (10:55)
--- NOTE | 2023-03-23 10:56 | PC.NURSE ---
inspiratory/expiratory wheezing/crackles noted upon auscultation throughout. lasix administered per AUG. will reassess lung sounds shortly. respirations even and unlabored at this time. bedside. call dumont placed within reach.
[2023-03-23 11:20] LABS: COVID-19 Test Negative (Negative); IDNOW Serial# BCCEAD1C
--- NOTE | 2023-03-23 11:51 | MHC.EDTECH ---
this pct attempted repeat lactic blood draw, 2 attempts, no success. RN Dayami attempts straight stick, no success. PCT Jean Carlos attempts straight stick, no success. Provider notified.
--- NOTE | 2023-03-23 11:53 | PHA.MEDREC ---
Pharmacy Consult ? Medication Reconciliation Spoke with Ashleigh . She started new medication ( bumetanide ) . Called [facility] to confirm. PT states she only uses the Sliding scale ( lispro ) and Trulicity She said she is no longer on furosemide and no longer on hydralazine . Pharmacy has completed the medication reconciliation.
--- NOTE | 2023-03-23 12:10 | PC.NURSE ---
phlebotomy bedside obtaining repeat lactic level as this RN and two other techs were unsuccessful w/ obtaining repeat lab.
--- NOTE | 2023-03-23 12:11 | P.HPHOSP_ITS ---
History of Present Illness Date of Service: 03/23/23 Chief Complaint: SOB 62-year-old woman with history of COPD, oxygen dependent presenting with complaints of worsening shortness of breath over the last 24 hours. She reports that there was some issues with her oxygen device. A filter may have been not changed appropriately and patient reports she was feeling short of breath and upon EMS arrival oxygen saturation was 70%. Patient was placed on CPAP while in the ER with good effect. Patient is on 6 L OxyMask. Patient was also found to be in atrial fibrillation with rapid ventricular response insert an Cardizem drip. Chest x-ray is negative for consolidation or effusion a showing mild vascular congestion. Labs within acceptable limits except for elevated lactic acid which is likely secondary to updraft treatments. She also received IV Lasix, Tylenol, morphine, Solu-Medrol. Be admitted for further management and treatment of acute hypoxic respiratory failure and atrial fibrillation with rapid ventricular response. Review of Systems 2 Review of Systems: Denies any recent fever chills or decrease in appetite respiratory See HPI cardiovascular denied chest pain gastrointestinal denies any dysphagia abdominal pain nausea vomiting or diarrhea genitourinary denies any dysuria frequency or hematuria musculoskeletal denies any joint pain or swelling neuropsych denies any weakness or seizures all other systems reviewed are negative [facility] Medical History (Updated 03/23/23 @ 12:12 by Joselyn Malone NP) COPD (chronic obstructive pulmonary disease) TAURUS (obstructive sleep apnea) Oxygen dependent Acute on chronic respiratory failure with hypoxia and hypercapnia Cor pulmonale (chronic) Diastolic CHF Morbid obesity Cocaine use disorder, mild, in sustained remission Obesity hypoventilation syndrome Cerebrovascular accident involving posterior circulation Moderate asthma Essential hypertension Diabetes mellitus Family History Father Medical history unknown Mother Diabetes Hypertension Father Medical history unknown Mother Hypertension Diabetes Other Substance use disorder Surgical History History of open reduction and internal fixation (ORIF) procedure History of tubal ligation History of cholecystectomy History of open reduction and internal fixation (ORIF) procedure History of tubal ligation History of cholecystectomy Social History Household Members: Spouse Housing: Apartment Do you presently have visiting nurse or other home services: Yes Alcohol intake: former Patient Tobacco Use Status: Former Tobacco user Tobacco use type: Cigarette Cigarette Packs Per Day: 0.75 Cigarettes Per Day: 15.0 Years Smoked: 31 years Smoked in Last 30 Days: No e-Cigarette/Vaping Use: Never Used Second Hand Smoke Exposure: Yes Use of substances other than those prescribed or required for medical reasons: No Substance Use Type: Crack/Cocaine Advance Directives: No Advance Directives Information Provided: No Advance Directives Date on File: 08/28/21 Patient : No service: No Current occupational status: disabled Cognitive needs: Yes (walker/wheelchair/cane) Hearing needs: No Vision needs: Yes Meds Allergies Allergy/AdvReac Type Severity Reaction Status Date / Time No Known Allergies Allergy Verified 03/14/23 10:24 Active Medications: Current Medications Diltiazem HCl 125 mg/ Sodium (Chloride) 125 mls @ 0 mls/hr IVCONT .Q0M EUGENIO; Protocol Home Medications Medication Instructions Recorded Confirmed Last Taken Type sennosides 8.6 mg tablet (Senna 17.2 mg PO BID PRN constipation 01/07/23 03/23/23 Unknown History Lax) dulaglutide 0.75 mg/0.5 mL 0.75 mg subcut TU@1430 02/11/23 03/23/23 03/19/23 History subcutaneous pen injector (Trulicity) insulin lispro 100 unit/mL 1 sliding scale dose subcut 03/23/23 03/23/23 Unknown History subcutaneous pen USEASDIRECTD spironolactone 25 mg tablet 25 mg PO DAILY 03/23/23 03/23/23 Unknown History thiamine HCl (vitamin B1) 100 mg 100 mg PO DAILY 03/23/23 03/23/23 Unknown History tablet Physical Exam 2 Vital Signs and Narrative: Vital Signs: Last Vital Signs Temp 98.5 F 03/23/23 12:03 Pulse 100 03/23/23 12:03 Resp 14 03/23/23 12:03 BP 154/78 H 03/23/23 12:03 Pulse Ox 6 L 03/23/23 12:03 O2 Del Method Oxymask 03/23/23 12:03 O2 Flow Rate 10 03/23/23 10:00 BMI result Body Mass Index 55.1 Appearing in no acute distress head is normocephalic atraumatic eyes pupils are PERRLA sclera is anicteric mouth throat mucous membranes are intact and moist neck is supple no lymphadenopathy, no JVD noted lung sounds are clear to auscultation heart regular rate rhythm, clear S1, S2 positive bowel sounds, abdomen is soft, nontender neuro patient is alert x3, no focal deficits Results Labs 03/23/23 09:04 03/23/23 08:45 Labs: Laboratory Results - last 24 hr 03/23/23 03/23/23 03/23/23 08:45 08:53 09:04 MCV 88.0 MCH 26.1 L MCHC 29.6 L RDW 16.0 Plt Count 467 H MPV 9.0 L Immature Gran % (Auto) 1.2 H Neut % (Auto) 80.5 H Lymph % (Auto) 12.1 L [place] % (Auto) 5.0 Eos % (Auto) 0.9 Baso % (Auto) 0.3 Lymph # (Auto) 1.4 [place] # (Auto) 0.6 Eos # (Auto) 0.1 Baso # (Auto) 0.0 Abs Immat Gran (auto) 0.14 H Absolute Neuts (auto) 9.4 H Absolute Nucleated RBC 0.030 H Nucleated RBC % (auto) 0.3 H Hold Blue Top SEE NOTE O2 Saturation 97.0 ABG pH at Pt Temp 7.43 ABG pCO2 at Pt Temp 79 H* ABG pO2 at Pt Temp 87 ABG HCO3 53 H ABG Base Excess (Actual) 24.2 Anion Gap 20 Estim Creat Clear Calc 108.2 Estimated GFR > 60 Random Glucose 152 H Lactic Acid 2.9 H* Calcium 8.5 D Magnesium 1.6 Total Bilirubin 0.5 AST 21 ALT 12 Alkaline Phosphatase 80 B-Natriuretic Peptide 196 H Total Protein 7.6 Albumin 4.1 Lipase 21 Ethyl Alcohol < 10 COVID-19 (MICHEL) COVID-19 Clin Com 03/23/23 10:41 MCV MCH MCHC RDW Plt Count MPV Immature Gran % (Auto) Neut % (Auto) Lymph % (Auto) [place] % (Auto) Eos % (Auto) Baso % (Auto) Lymph # (Auto) [place] # (Auto) Eos # (Auto) Baso # (Auto) Abs Immat Gran (auto) Absolute Neuts (auto) Absolute Nucleated RBC Nucleated RBC % (auto) Hold Blue Top O2 Saturation ABG pH at Pt Temp ABG pCO2 at Pt Temp ABG pO2 at Pt Temp ABG HCO3 ABG Base Excess (Actual) Anion Gap Estim Creat Clear Calc Estimated GFR Random Glucose Lactic Acid Calcium Magnesium Total Bilirubin AST ALT Alkaline Phosphatase B-Natriuretic Peptide Total Protein Albumin Lipase Ethyl Alcohol COVID-19 (MICHEL) Negative COVID-19 Clin Com See Note Imaging Radiologist's Impressions: Impressions Chest X-Ray 03/23/23 08:40 IMPRESSION: * Limited study motion artifact projection. * Mild vascular congestion. * Cardiac silhouette is enlarged, this is exaggerated by AP technique. Assessment and Plan (1) COPD (chronic obstructive pulmonary disease): Status: Acute (2) TAURUS (obstructive sleep apnea): Status: Acute Plan 62-year-old woman admitted with acute hypoxic respiratory failure secondary to COPD exacerbation and atrial fibrillation with rapid ventricular response. Last discharge 02/22/2023 and treated for the same Acute Metabolic alkalosis due to acute hypoxic respiratory failure secondary to COPD exacerbation Placed on CPAP initially, now on oxymask Start IV Solu-Medrol, scheduled DuoNebs follow VBG as needed and in the morning continue supplemental oxygen Atrial fibrillation with rapid ventricular response Last echocardiogram January 2023 EF 65% without evidence of regional wall motion abnormalities Likely secondary to respiratory distress Continue Cardizem drip IV Cardiology consultation pending Monitor on telemetry Continue Eliquis HFpEF no exacerbation continue home medications Diabetes mellitus type 2 Sliding scale, ADA diet TAURUS cpap morbid obesity. BMI 55.1 Discussed importance of weight management as this may be contributing to worsening of other comorbidities DVT prophylaxis with Eliquis Full code patient requires 2 inpatient midnights for treatment of acute hypoxic respiratory failure secondary to COPD exacerbation requiring close monitoring oxygen and possibly BiPAP ventilation Time Spent With Patient Time: Total time managing care of this patient today ____ minutes. Quality Stroke Does the patient have a stroke diagnosis?: No VTE Prior VTE?: No VTE Risk Level:: Medical - moderate - high VTE Device Contraindication: Treatment Not Indicated VTE Drug Contraindication: N/A - Med Ordered
[2023-03-23 12:38] LABS: ~Lactic Acid-LAB USE ONLY 2.5 mmol/L (0.5-2.0)
--- NOTE | 2023-03-23 13:04 | PC.NURSE ---
pt currently resting in no apparent distress. respirations even and unlabored. no WOB/SOB noted at this time. pt c/o new onset left lower back pain at this time. pt requesting pain medication. ED provider aware at this time. family bedside for support. call dumont placed within reach.
[2023-03-23] MEDS: Acetaminophen 325 MG TABLET 975 MG PO (13:51)
--- NOTE | 2023-03-23 13:55 | PC.NURSE ---
pt medicated per provider order. pt c/o lower back pain at this time. pt ambulated/transferred to chair to promote comfort. pt verbalizes she feels more comfortable sitting in the chair at this time. bedside for support. call dumont placed within reach.
[2023-03-23 14:17] LABS: Reflex Lactate? 2 Y
[2023-03-23 15:03] LABS: ~Lactic Acid-LAB USE ONLY 1.9 mmol/L (0.5-2.0)
[2023-03-23] MEDS: 0.9 % Sodium Chloride Flush 3 ML SYRINGE IVFLUSH (15:17)
--- NOTE | 2023-03-23 15:17 | PC.NURSE ---
pt currently remains a&ox3 at this time. sinus tachy/afib on the special events manager (100s-130s). pt remains [place] card[place] [facility]. 93% on 7L via oxymask. pt displays no OB/SOB/labored breathing at this time. pt's bedside for support. call dumont placed within reach.
--- NOTE | 2023-03-23 17:30 | PC.NURSE ---
pt was incontinent of urine. this RN and another RN transferred pt fom chair to bed and was able to clean her/get her changed into new/clean hospital attire. purewick applied to suction. pt resting comfortably in no signs of distress. no SOB/WOB noted at this time. call dumont placed within reach.
[2023-03-23] MEDS: Atorvastatin Calcium 80 MG TABLET PO (20:03)
[2023-03-23] MEDS: Apixaban 5 MG TABLET PO (20:03)
[2023-03-23] MEDS: Bumetanide 1 MG TABLET PO (20:03)
--- NOTE | 2023-03-23 20:15 | PC.NURSE ---
unable to scan cardize for drip. pharmacy/admitting provider/discharge door operator notified and aware at this time. this RN called pharmacy and stated that they do not have anything to do w/ timing/scanning. discharge door operator also called pharmacy. states that they will attempt to fix it.
--- NOTE | 2023-03-23 20:52 | PC.NURSE ---
this RN unable to scan medication at this time. pharmacy/admitting/dry charge process attendant aware at this time. continuous cardizem drip IV started at 15mg/hr per protocol at this time. HR = 109 (sinus tachy/afib on monitor), BP = 131/74, O2 = 91% on 11 via oxymask.
--- NOTE | 2023-03-23 21:11 | PC.NURSE ---
this RN assumed care of patient at 21:15. report received from Dayami FRANKLIN,. per RN, diltiazem medication 2nd bag is infusing. RN prior was unable to scan in diltiazem bag x 2. pharmacy/hospitalist/hemodialysis charge nurse all aware. diltiazem currently infusing at 15mg/hr per mar for HR of afib 110-120s. pt wearing oxymask . call dumont within reach. plan of care ongoing.
[2023-03-23] MEDS: Acetaminophen 325 MG TABLET 650 MG PO (21:56)
--- NOTE | 2023-03-23 22:15 | PC.NURSE ---
respiratory therapist placed pt on cpap machine while she sleeps. pt wears this at home at bedtime
[2023-03-24] VITALS (11 sets, daily range): BP systolic 131–164; BP diastolic 81–91; PULSE 95–131; RESP 14–23; TEMP 36.2–37.2; O2SAT 88–97
--- NOTE | 2023-03-24 00:56 | PC.NURSE ---
pt asleep comfortably wearing cpap machine respirations even and unlabored . on teletypesetter monitor. call dumont within reach plan of care ongoing
[2023-03-24] MEDS: dilTIAZem HCL 125 MG in 0.9 % Sodium Chloride 100 ML 15 MG IVCONT ×2 (05:28→13:30)
[2023-03-24] MEDS: traMADoL HCL 50 MG TABLET PO (05:29)
--- NOTE | 2023-03-24 05:31 | PC.NURSE ---
3rd bag of diltiazem started at 05:28 per mar for pt HR still 100-120. started at max rate of 15mg/hr in which previous infusion was running at. verified with MD Diaz. pt medicated with tramadol for pain and moved to recliner for increased comfort. pt reports feeling much better. pt still wearing 13L via oxymask and is 87-92%. OK with RT. pt speaking clear full sentences needs met and call dumont within reach. plan of care ongoing
[2023-03-24 05:38] LABS: MANUAL DIFF FLAG NO
[2023-03-24 05:45] LABS: Basophils Percent Auto 0.1 % (0-2); Hematocrit 32.7 % (37.0-47.0); Hemoglobin 9.5 g/dl (12.0-16.0); Imm Gran Abs Auto 0.13 X10*3/uL (0.00-0.03); Imm Gran Pct Auto 1.3 % (0.0-0.4); Lymphocytes Absolute Auto 0.8 X10*3/uL (1.2-4.9); Lymphocytes Percent Auto 7.9 % (20-40); Mean Corpuscular HGB Conc 29.1 g/dl (31.0-35.0); Mean Corpuscular Hemoglobin 25.5 pg (27.0-33.0); Mean Corpuscular Volume 87.7 fL (80.0-98.0); Mean Platelet Volume 9.6 fL (9.4-12.3); Monocytes Absolute Auto 0.4 X10*3/uL (0.1-1.2); Monocytes Percent Auto 4.5 % (2-11); NRBC Pct Auto 0.3 /100WBC (0.0-0.2); Neutrophils Absolute Auto 8.5 x10*3/uL (2.0-8.3); Neutrophils Percent Auto 86.2 % (45-73); Platelet Count 521 X10*3/uL (160-400); Red Blood Count 3.73 X10*6/uL (4.20-5.50); Red Cell Distribution Width 15.8 % (11.0-16.0); White Blood Count 9.9 X10*3/uL (4.8-10.8)
[2023-03-24 06:14] LABS: Alanine Aminotransferase 12 U/L (0-31); Albumin Level 4.2 g/dL (3.5-5.0); Alkaline Phosphatase 79 U/L (39-117); Anion Gap 21 (12-20); Aspartate Amino Transferase 10 U/L (5-31); Bilirubin Total 0.5 mg/dL (0.0-1.0); Blood Urea Nitrogen 18 mg/dL (9-16); Calcium 8.6 mg/dL (8.4-10.2); Carbon Dioxide 39 mmol/L (22-29); Chloride 84 mmol/L (96-108); Creatinine Clr Calc Pharmacy 91.4; Estimated Glomerular Filt Rate > 60; Glucose Random 304 mg/dL (60-115); Potassium 4.4 mmol/L (3.3-5.1); Sodium 140 mmol/L (135-145); Total Protein 7.2 g/dL (6.5-8.0)
[2023-03-24] MEDS: Albuterol Sulfate (0.083%) 2.5 MG/3 ML VIAL.NEB INHALE ×4 (08:49→19:14)
[2023-03-24 08:52] LABS: VBG Base Excess 25.2 mmol/L; VBG HCO3 48 mmol/L (22-26); VBG pCO2 43 mmHg; VBG pO2 265 mmHg
[2023-03-24 08:52] LABS: Venous Blood Gas Refer to POC result
[2023-03-24 08:53] LABS: VBG pH 7.65 (7.32-7.43)
[2023-03-24] MEDS: 0.9 % Sodium Chloride Flush 3 ML SYRINGE IVFLUSH ×2 (09:37→20:13)
[2023-03-24] MEDS: Potassium Chloride Packet 20 MEQ PACKET PO (09:37)
[2023-03-24] MEDS: amLODIPine Besylate 10 MG TABLET PO (09:38)
[2023-03-24] MEDS: Apixaban 5 MG TABLET PO ×2 (09:38→20:10)
[2023-03-24] MEDS: Spironolactone 25 MG TABLET PO (09:38)
[2023-03-24] MEDS: Bumetanide 1 MG TABLET PO ×2 (09:38→20:10)
[2023-03-24] MEDS: dilTIAZem HCL CD 180 MG CAP.ER.24H 360 MG PO (09:38)
[2023-03-24] MEDS: methylPREDNISolone Sod Succ 40 MG/ML VIAL IVPUSH ×2 (09:38→20:10)
[2023-03-24] MEDS: Thiamine HCL 100 MG TABLET PO (09:38)
--- NOTE | 2023-03-24 09:51 | PC.NURSE ---
pt remains on cardizem drip, hr between 110's-130's. patient was placed in hospital bed for comfort and cleaned, purewick in place. medicated per the MAR, at bedside. call dumont within reach. awaiting bed assignment upstairs.
--- NOTE | 2023-03-24 11:28 | HO.PM.IMPN ---
Subjective Subjective Date of Service: 03/24/23 Interval History: no chest pain no dyspnea edema improved persistent AF Review of Systems Review of Systems: Yes all other systems are reviewed and are negative Physical Exam Vital Signs: Vital Signs: Last Vital Signs Temp 99.0 F 03/24/23 09:34 Pulse 112 H 03/24/23 09:34 Resp 16 03/24/23 09:34 BP 151/85 H 03/24/23 09:34 Pulse Ox 96 03/24/23 09:34 O2 Del Method CPAP 03/24/23 00:29 O2 Flow Rate 7 03/23/23 15:19 BMI result Body Mass Index 55.1 Appearing in no acute distress lung sounds exp wheezing heart regular rate rhythm, clear S1, S2 positive bowel sounds, abdomen is soft, nontender neuro patient is alert x3, no focal deficits Objective Data Active Medications Acetaminophen (Acetaminophen 325 Mg Tablet) 650 mg PO Q6H PRN PRN Reason: Pain, Mild (Pain Scale 1-3) Last Admin: 03/23/23 21:56 Dose: 650 mg Documented By: IRAM Albuterol Sulfate (Albuterol Sulfate (0.083%) 2.5 Mg/3 Ml Vial.Neb) 2.5 mg INHALE RQ4H WHILE AWAKE [facility] Last Admin: 03/24/23 08:49 Dose: 2.5 mg Documented By: RUBA Amlodipine Besylate (Amlodipine Besylate 10 Mg Tablet) 10 mg PO DAILY [facility]; Protocol Last Admin: 03/24/23 09:38 Dose: 10 mg Documented By: LYNDON Apixaban (Apixaban 5 Mg Tablet) 5 mg PO BID [facility] Last Admin: 03/24/23 09:38 Dose: 5 mg Documented By: LYNDON Atorvastatin Calcium (Atorvastatin Calcium 80 Mg Tablet) 80 mg PO BEDTIME [facility] Last Admin: 03/23/23 20:03 Dose: 80 mg Documented By: EDSON Bumetanide (Bumetanide 1 Mg Tablet) 1 mg PO BID [facility]; Protocol Last Admin: 03/24/23 09:38 Dose: 1 mg Documented By: LYNDON Diltiazem HCl (Diltiazem Hcl Cd 180 Mg Cap.Er.24h) 360 mg PO DAILY [facility]; Protocol Last Admin: 03/24/23 09:38 Dose: 360 mg Documented By: LYNDON Fluticasone Propionate (Fluticasone Propionate Nasal 16 Gm Taylor) 1 spray NOSTRIL-B DAILY PRN PRN Reason: Allergy Symptoms Diltiazem HCl 125 mg/ Sodium (Chloride) 125 mls @ 0 mls/hr IVCONT .Q0M [facility]; Protocol Last Admin: 03/24/23 05:28 Dose: 15 mg/hr, 15 mls/hr Documented By: IRAM Methylprednisolone Sodium Succinate (Methylprednisolone Sod Succ 40 Mg/Ml Vial) 40 mg IVPUSH Q12H [facility] Last Admin: 03/24/23 09:38 Dose: 40 mg Documented By: LYNDON Non-Formulary Medication (Dulaglutide [Trulicity]) 0.75 mg SUBCUT TU@1430 [facility] Ondansetron HCl (Ondansetron Hcl 4 Mg/2 Ml Vial) 4 mg IVPUSH Q8H PRN PRN Reason: Nausea and Vomiting Potassium Chloride (Potassium Chloride Packet 20 Meq Packet) 20 meq PO DAILY [facility] Last Admin: 03/24/23 09:37 Dose: 20 meq Documented By: LYNDON Senna (Sennosides 8.6 Mg Tablet) 17.2 mg PO BID PRN PRN Reason: constipation Sodium Chloride (0.9 % Sodium Chloride Flush 3 Ml Syringe) 3 ml IVFLUSH QSHIFT [facility] Last Admin: 03/24/23 09:37 Dose: 3 ml Documented By: LYNDON Spironolactone (Spironolactone 25 Mg Tablet) 25 mg PO DAILY [facility]; Protocol Last Admin: 03/24/23 09:38 Dose: 25 mg Documented By: LYNDON Thiamine HCl (Thiamine Hcl 100 Mg Tablet) 100 mg PO DAILY [facility] Last Admin: 03/24/23 09:38 Dose: 100 mg Documented By: LYNDNO Labs 03/24/23 05:30 03/24/23 05:30 Labs: Laboratory Results - last 24 hr 03/23/23 03/23/23 03/24/23 12:13 14:40 05:30 MCV 87.7 MCH 25.5 L MCHC 29.1 L RDW 15.8 Plt Count 521 H MPV 9.6 Immature Gran % (Auto) 1.3 H Neut % (Auto) 86.2 H Lymph % (Auto) 7.9 L [place] % (Auto) 4.5 Eos % (Auto) 0.0 Baso % (Auto) 0.1 Lymph # (Auto) 0.8 L [place] # (Auto) 0.4 Eos # (Auto) 0.0 Baso # (Auto) 0.0 Abs Immat Gran (auto) 0.13 H Absolute Neuts (auto) 8.5 H Absolute Nucleated RBC 0.030 H Nucleated RBC % (auto) 0.3 H VBG pH VBG pCO2 VBG pO2 VBG HCO3 VBG O2 Saturation VBG Base Excess Anion Gap 21 H Estim Creat Clear Calc 91.4 Estimated GFR > 60 Random Glucose 304 H Lactic Acid F/U @ 2Hr 2.5 H* Lactic Acid F/U @ 4Hr 1.9 Calcium 8.6 Total Bilirubin 0.5 AST 10 ALT 12 Alkaline Phosphatase 79 Total Protein 7.2 Albumin 4.2 03/24/23 08:23 MCV MCH MCHC RDW Plt Count MPV Immature Gran % (Auto) Neut % (Auto) Lymph % (Auto) [place] % (Auto) Eos % (Auto) Baso % (Auto) Lymph # (Auto) [place] # (Auto) Eos # (Auto) Baso # (Auto) Abs Immat Gran (auto) Absolute Neuts (auto) Absolute Nucleated RBC Nucleated RBC % (auto) VBG pH 7.65 H* VBG pCO2 43 VBG pO2 265 VBG HCO3 48 H VBG O2 Saturation 100.0 VBG Base Excess 25.2 Anion Gap Estim Creat Clear Calc Estimated GFR Random Glucose Lactic Acid F/U @ 2Hr Lactic Acid F/U @ 4Hr Calcium Total Bilirubin AST ALT Alkaline Phosphatase Total Protein Albumin Microbiology Microbiology Results: Microbiology 03/23/23 09:03 Blood Culture - Preliminary Blood - Venous No growth after 24 hours. 03/23/23 08:45 Blood Culture - Preliminary Blood - Venous No growth after 24 hours. Assessment and Plan (1) COPD (chronic obstructive pulmonary disease): Status: Acute Plan 62-year-old woman admitted with acute hypoxic respiratory failure secondary to COPD exacerbation and atrial fibrillation with rapid ventricular response. Last discharge 02/22/2023 and treated for the same Acute Metabolic alkalosis due to acute hypoxic respiratory failure secondary to COPD exacerbation Placed on CPAP initially, now on oxymask continue IV Solu-Medrol, scheduled DuoNebs follow VBG as needed and in the morning continue supplemental oxygen Atrial fibrillation with rapid ventricular response Likely secondary to respiratory distress Last echocardiogram January 2023 EF 65% without evidence of regional wall motion abnormalities Continue Cardizem drip IV Cardiology consultation pending Monitor on telemetry Continue Eliquis HFpEF no exacerbation continue home medications Diabetes mellitus type 2 Sliding scale, ADA diet TAURUS cpap morbid obesity. BMI 55.1 Discussed importance of weight management as this may be contributing to worsening of other comorbidities DVT prophylaxis with Ana Attending Dr. Harris Full code Continued hospital stay for treatment of acute hypoxic respiratory failure secondary to COPD exacerbation requiring close monitoring oxygen and possibly BiPAP ventilation Time Spent With Patient Time: Total time managing care of this patient today ____ minutes. Quality Stroke Does the patient have a stroke diagnosis?: No VTE Prior VTE?: No VTE Risk Level:: Medical - moderate - high VTE Device Contraindication: Treatment Not Indicated VTE Drug Contraindication: N/A - Med Ordered
[2023-03-24 12:06] LABS: VBG Base Excess 25.8 mmol/L; VBG HCO3 56 mmol/L (22-26); VBG pCO2 96 mmHg; VBG pH 7.37 (7.32-7.43); VBG pO2 53 mmHg
--- NOTE | 2023-03-24 12:20 | P.CONCA_ITS ---
History of Present Illness History of Present Illness Date of Service: 03/24/23 Requesting physician: Joselyn Malone Chief complaint: afib RVR COPD Narrative: [age] year female with advanced COPD on home oxygen, morbid obesity and atrial fibrillation diagnosed recently who is presenting with AFib with RVR and shortness of breath. She apparently had some equipment delivered and there was some issue with her oxygen cylinder and she developed shortness of breath due to poor oxygen delivery. With these symptoms she was brought in. She was in AFib with RVR. She is denying any significant shortness of breath. Recently discharged with diltiazem 360 mg and apixaban. [facility] Past Medical History Medical History (Updated 03/24/23 @ 12:23 by Pawel Tsang MD) COPD (chronic obstructive pulmonary disease) TAURUS (obstructive sleep apnea) Oxygen dependent Acute on chronic respiratory failure with hypoxia and hypercapnia Cor pulmonale (chronic) Diastolic CHF Morbid obesity Cocaine use disorder, mild, in sustained remission Obesity hypoventilation syndrome Cerebrovascular accident involving posterior circulation Moderate asthma Essential hypertension Diabetes mellitus Family History Family History Father Medical history unknown Mother Diabetes Hypertension Father Medical history unknown Mother Hypertension Diabetes Other Substance use disorder Surgical History Surgical History History of open reduction and internal fixation (ORIF) procedure History of tubal ligation History of cholecystectomy History of open reduction and internal fixation (ORIF) procedure History of tubal ligation History of cholecystectomy Social History Social History Household Members: Spouse Housing: Apartment Do you presently have visiting nurse or other home services: Yes Alcohol intake: former Patient Tobacco Use Status: Former Tobacco user Tobacco use type: Cigarette Cigarette Packs Per Day: 0.75 Cigarettes Per Day: 15.0 Years Smoked: 31 years Smoked in Last 30 Days: No e-Cigarette/Vaping Use: Never Used Second Hand Smoke Exposure: Yes Use of substances other than those prescribed or required for medical reasons: No Substance Use Type: Crack/Cocaine Advance Directives: No Advance Directives Information Provided: No Advance Directives Date on File: 08/28/21 Nutrition Risks: No Nutritional Risk Patient : No service: No Current occupational status: disabled Cognitive needs: Yes (walker/wheelchair/cane) Hearing needs: No Vision needs: Yes Meds Allergies Allergy/AdvReac Type Severity Reaction Status Date / Time No Known Allergies Allergy Verified 03/14/23 10:24 Active Medications: Current Medications Acetaminophen (Acetaminophen 325 Mg Tablet) 650 mg PO Q6H PRN PRN Reason: Pain, Mild (Pain Scale 1-3) Last Admin: 03/23/23 21:56 Dose: 650 mg Albuterol Sulfate (Albuterol Sulfate (0.083%) 2.5 Mg/3 Ml Vial.Neb) 2.5 mg INHALE RQ4H WHILE AWAKE [facility] Last Admin: 03/24/23 11:37 Dose: 2.5 mg Amlodipine Besylate (Amlodipine Besylate 10 Mg Tablet) 10 mg PO DAILY [facility]; Protocol Last Admin: 03/24/23 09:38 Dose: 10 mg Apixaban (Apixaban 5 Mg Tablet) 5 mg PO BID [facility] Last Admin: 03/24/23 09:38 Dose: 5 mg Atorvastatin Calcium (Atorvastatin Calcium 80 Mg Tablet) 80 mg PO BEDTIME [facility] Last Admin: 03/23/23 20:03 Dose: 80 mg Bumetanide (Bumetanide 1 Mg Tablet) 1 mg PO BID [facility]; Protocol Last Admin: 03/24/23 09:38 Dose: 1 mg Diltiazem HCl (Diltiazem Hcl Cd 180 Mg Cap.Er.24h) 360 mg PO DAILY [facility]; Protocol Last Admin: 03/24/23 09:38 Dose: 360 mg Fluticasone Propionate (Fluticasone Propionate Nasal 16 Gm [place]) 1 spray NOSTRIL-B DAILY PRN PRN Reason: Allergy Symptoms Diltiazem HCl 125 mg/ Sodium (Chloride) 125 mls @ 0 mls/hr IVCONT .Q0M [facility]; Protocol Last Admin: 03/24/23 05:28 Dose: 15 mg/hr, 15 mls/hr Methylprednisolone Sodium Succinate (Methylprednisolone Sod Succ 40 Mg/Ml Vial) 40 mg IVPUSH Q12H [facility] Last Admin: 03/24/23 09:38 Dose: 40 mg Non-Formulary Medication (Dulaglutide [Trulicity]) 0.75 mg SUBCUT TU@1430 [facility] Ondansetron HCl (Ondansetron Hcl 4 Mg/2 Ml Vial) 4 mg IVPUSH Q8H PRN PRN Reason: Nausea and Vomiting Potassium Chloride (Potassium Chloride Packet 20 Meq Packet) 20 meq PO DAILY [facility] Last Admin: 03/24/23 09:37 Dose: 20 meq Senna (Sennosides 8.6 Mg Tablet) 17.2 mg PO BID PRN PRN Reason: constipation Sodium Chloride (0.9 % Sodium Chloride Flush 3 Ml Syringe) 3 ml IVFLUSH QSHIFT [facility] Last Admin: 03/24/23 09:37 Dose: 3 ml Spironolactone (Spironolactone 25 Mg Tablet) 25 mg PO DAILY [facility]; Protocol Last Admin: 03/24/23 09:38 Dose: 25 mg Thiamine HCl (Thiamine Hcl 100 Mg Tablet) 100 mg PO DAILY [facility] Last Admin: 03/24/23 09:38 Dose: 100 mg Home Medications Medication Instructions Recorded Confirmed Last Taken Type sennosides 8.6 mg tablet (Senna 17.2 mg PO BID PRN constipation 01/07/23 03/23/23 Unknown History Lax) dulaglutide 0.75 mg/0.5 mL 0.75 mg subcut TU@1430 02/11/23 03/23/23 03/19/23 History subcutaneous pen injector (Trulicity) insulin lispro 100 unit/mL 1 sliding scale dose subcut 03/23/23 03/23/23 Unknown History subcutaneous pen USEASDIRECTD spironolactone 25 mg tablet 25 mg PO DAILY 03/23/23 03/23/23 Unknown History thiamine HCl (vitamin B1) 100 mg 100 mg PO DAILY 03/23/23 03/23/23 Unknown History tablet Physical Exam 2 Vital Signs: Vital Signs: Last Vital Signs Temp 99.0 F 03/24/23 09:34 Pulse 104 H 03/24/23 11:37 Resp 18 03/24/23 11:37 BP 151/85 H 03/24/23 09:34 Pulse Ox 96 03/24/23 09:34 O2 Del Method CPAP 03/24/23 00:29 O2 Flow Rate 7 03/23/23 15:19 BMI result Body Mass Index 55.1 GENERAL APPEARANCE: On supplemental oxygen. Morbidly obese. NECK: no carotid bruit, no obvious jugular venous distention. SKIN: no suspicious lesions, warm and dry. HEART: no murmurs, irregular rate and rhythm. LUNGS: clear to auscultation bilaterally. ABDOMEN: soft, nontender. EXTREMITIES: Mild edema. PERIPHERAL PULSES: equal. NEUROLOGIC: No gross deficits, AAO X 3 Objective Labs and Meds 03/24/23 05:30 03/24/23 05:30 Lab results: Laboratory Results - last 24 hr 03/23/23 03/23/23 03/24/23 12:13 14:40 05:30 WBC 9.9 RBC 3.73 L Hgb 9.5 L Hct 32.7 L MCV 87.7 MCH 25.5 L MCHC 29.1 L RDW 15.8 Plt Count 521 H MPV 9.6 Immature Gran % (Auto) 1.3 H Neut % (Auto) 86.2 H Lymph % (Auto) 7.9 L [place] % (Auto) 4.5 Eos % (Auto) 0.0 Baso % (Auto) 0.1 Lymph # (Auto) 0.8 L [place] # (Auto) 0.4 Eos # (Auto) 0.0 Baso # (Auto) 0.0 Abs Immat Gran (auto) 0.13 H Absolute Neuts (auto) 8.5 H Absolute Nucleated RBC 0.030 H Nucleated RBC % (auto) 0.3 H VBG pH VBG pCO2 VBG pO2 VBG HCO3 VBG O2 Saturation VBG Base Excess Sodium 140 Potassium 4.4 Chloride 84 L Carbon Dioxide 39 H Anion Gap 21 H BUN 18 H Creatinine 0.77 Estim Creat Clear Calc 91.4 Estimated GFR > 60 Random Glucose 304 H Lactic Acid F/U @ 2Hr 2.5 H* Lactic Acid F/U @ 4Hr 1.9 Calcium 8.6 Total Bilirubin 0.5 AST 10 ALT 12 Alkaline Phosphatase 79 Total Protein 7.2 Albumin 4.2 03/24/23 03/24/23 08:23 12:00 WBC RBC Hgb Hct MCV MCH MCHC RDW Plt Count MPV Immature Gran % (Auto) Neut % (Auto) Lymph % (Auto) [place] % (Auto) Eos % (Auto) Baso % (Auto) Lymph # (Auto) [place] # (Auto) Eos # (Auto) Baso # (Auto) Abs Immat Gran (auto) Absolute Neuts (auto) Absolute Nucleated RBC Nucleated RBC % (auto) VBG pH 7.65 H* 7.37 VBG pCO2 43 96 VBG pO2 265 53 VBG HCO3 48 H 56 H VBG O2 Saturation 100.0 72.0 VBG Base Excess 25.2 25.8 Sodium Potassium Chloride Carbon Dioxide Anion Gap BUN Creatinine Estim Creat Clear Calc Estimated GFR Random Glucose Lactic Acid F/U @ 2Hr Lactic Acid F/U @ 4Hr Calcium Total Bilirubin AST ALT Alkaline Phosphatase Total Protein Albumin Assessment and Plan (1) COPD (chronic obstructive pulmonary disease): Status: Acute (2) Atrial fibrillation with RVR: Status: Acute Plan [age] year female with background of COPD and new diagnosis of atrial fibrillation presenting for shortness of breath. It appears there was some issues with her equipment at home and did not get enough oxygen and came to the emergency department. Probably due to hypoxia she had some AFib with RVR. Heart rates are improving. She is on apixaban 5 mg twice a day. I think she can stay on IV diuretics for a day given mild congestion on the chest x-ray. Physical exam in general is quite limited in her. Thank you for allowing me to participate in the care of your patient. Please feel free to contact me if you have any questions. Time Spent With Patient Time: Total time managing care of this patient today ____ minutes. Procedures Date of Service Date of Service: 03/24/23
[2023-03-24 12:45] LABS: Venous Blood Gas Refer to POC result
--- NOTE | 2023-03-24 14:44 | PC.NURSE ---
Pt arrived from ED in bed oriented to room, call [facility] system and staff. A&OX4 speech clear, media specialist utilized for assessment. REYES to command with generalized weakness able to help self turn in bed. Denies headache, dizziness or vision changes. LS dim denies SOB or chest pain, Afib on tele 100-120 on IV cardizem at 15mg/hr. On 8L on arrival to unit via oxymizer satting 88-91 desats with exertion into low 80's recovers after few minutes. BS+X4 abdomen soft non-tender denies nausea/vomiting. Purewick in place. Skin intact. Placed back on cpap late afternoon pt with increased SOB. Will continue to monitor and report changes
[2023-03-24] MEDS: Atorvastatin Calcium 80 MG TABLET PO (20:10)
[2023-03-24 20:16] LABS: Glucose, Whole Blood 444 mg/dL (60-115)
[2023-03-24] MEDS: Insulin Glargine,Hum.rec.anlog 100 UNIT/ML 10 ML VIAL 25 UNIT SUBCUT (21:00)
[2023-03-24] MEDS: Insulin Lispro 100 UNIT/ML 3 ML VIAL SUBCUT (21:00)
[2023-03-24] MEDS: dilTIAZem HCL 125 MG in 0.9 % Sodium Chloride 100 ML 10 MG IVCONT (23:05)
[2023-03-25] VITALS (17 sets, daily range): BP systolic 124–152; BP diastolic 70–82; PULSE 77–115; RESP 14–21; TEMP 36.1–37.1; O2SAT 87–96
--- NOTE | 2023-03-25 06:40 | PC.RT ---
Pt switched from CPAP to AVAPS 14-420- peep 8- 25/5 60% per pt's home settings. Pt aidan settings well
[2023-03-25] MEDS: Albuterol Sulfate (0.083%) 2.5 MG/3 ML VIAL.NEB INHALE ×4 (07:23→19:29)
[2023-03-25 07:35] LABS: Glucose, Whole Blood 385 mg/dL (60-115)
[2023-03-25] MEDS: Insulin Lispro 100 UNIT/ML 3 ML VIAL SUBCUT ×4 (08:22→21:38)
[2023-03-25] MEDS: 0.9 % Sodium Chloride Flush 3 ML SYRINGE IVFLUSH ×3 (08:22→23:57)
[2023-03-25] MEDS: amLODIPine Besylate 10 MG TABLET PO (08:22)
[2023-03-25] MEDS: methylPREDNISolone Sod Succ 40 MG/ML VIAL IVPUSH ×2 (08:22→21:38)
[2023-03-25] MEDS: Bumetanide 1 MG TABLET PO (08:22)
[2023-03-25] MEDS: Apixaban 5 MG TABLET PO ×2 (08:22→21:38)
[2023-03-25] MEDS: Potassium Chloride Packet 20 MEQ PACKET PO (08:22)
[2023-03-25] MEDS: Thiamine HCL 100 MG TABLET PO (08:23)
[2023-03-25] MEDS: dilTIAZem HCL CD 180 MG CAP.ER.24H 360 MG PO (08:23)
[2023-03-25] MEDS: Spironolactone 25 MG TABLET PO (08:23)
--- NOTE | 2023-03-25 08:43 | MHC.CM.PN ---
CM met with Patient and her at bedside. Patient lives in an apartment with her /HCP and she uses both a walker and a w/c to assist with mobility. Patient has home O2 through [facility] and she receives 5 hours/day of [employer] services. Home/resume said services is the goal and CM has initiated and will follow for dc planning.PCP is from [facility].
[2023-03-25] MEDS: Furosemide 100 MG/10 ML VIAL 60 MG IVPUSH (11:01)
--- NOTE | 2023-03-25 11:33 | PM.PNCARD ---
Subjective Subjective Date of Service: 03/25/23 Interval history: Patient is wearing CPAP mask and lying down. When questioned, she states she is doing okay. Denies any acute symptoms like chest pain or shortness of breath. Discussed using furniture manager. Review of Systems Review of Systems Yes all other systems are reviewed and are negative Constitutional: Reports as per HPI and Reports no additional constitutional complaints Eyes: Reports as per HPI and Denies no additional eye complaints Denies system reviewed and no additional complaints, except as documented and Reports as per HPI Cardiovascular: Reports as per HPI, Reports no additional cardiovascular complaints, Denies acrocyanosis, Denies cool extremities, Denies chest pain, Denies leg edema, Denies lightheadedness, Denies palpitations and Denies dyspnea Respiratory: Reports as per HPI, Denies no additional respiratory complaints and Denies dyspnea Gastrointestinal: Reports as per HPI and Denies no additional gastrointestinal complaints Genitourinary: Reports as per HPI Musculoskeletal: Reports no additional musculoskeletal complaints and Reports as per HPI Skin/Breast: Reports system reviewed and no additional complaints, except as docu Reports system reviewed and no additional complaints, except as documented and Reports as per HPI Psychiatric: Reports no additional psychiatric complaints and Reports as per HPI Endocrine: Reports no additional endocrine complaints, Reports as per HPI and Denies palpitations Hematologic/Lymphatic: Reports no additional hematologic/lymphatic complaints and Reports as per HPI Allergic/Immunologic: Reports no additional allergic/immunologic complaints and Reports as per HPI Physical Exam Vital Signs: Last Vital Signs Temp 97.1 F 03/25/23 07:34 Pulse 115 H 03/25/23 11:20 Resp 16 03/25/23 11:20 BP 146/77 H 03/25/23 07:34 Pulse Ox 88 L 03/25/23 07:34 O2 Del Method Nasal Cannula 03/25/23 07:34 O2 Flow Rate 11 03/25/23 07:34 BMI result Body Mass Index 55.1 Const General: comfortable, no acute distress and ill appearing Orientation/consciousness: patient oriented x3 HEENT Other: Unremarkable Head: Yes normal to inspection Neck Neck: Yes normal visual inspection Chest Chest palpation & inspection: normal inspection of the chest Resp Auscultation: diminished lung sounds Cardio Palpation: normal PMI Heart sounds: S1 normal heart sound present, S2 normal heart sound present, no gallops, no murmurs and no rubs GI Palpation (GI): Soft to palpation Back/Spine/Pelvis Other: unremarkable Skin General skin exam: no rashes or lesions noted Neuro General: patient oriented x3 Extrem General: Yes normal to inspection Psych Mental Status: mental status grossly normal Objective Labs and Meds 03/24/23 05:30 03/24/23 05:30 Lab results: Laboratory Results - last 24 hr 03/24/23 03/24/23 03/25/23 12:00 20:12 07:31 Hold Purple Top VBG pH 7.37 VBG pCO2 96 VBG pO2 53 VBG HCO3 56 H VBG O2 Saturation 72.0 VBG Base Excess 25.8 POC Glucose 444 H* 385 H* Hold Yellow Top 03/25/23 11:12 Hold Purple Top SEE NOTE VBG pH VBG pCO2 VBG pO2 VBG HCO3 VBG O2 Saturation VBG Base Excess POC Glucose Hold Yellow Top See Note ECG Interpretation: EKG with atrial fibrillation rate of 112/Min; nonspecific ST-T changes. Progress Note: A&P Assessment and plan (1) Atrial fibrillation with RVR: Status: Acute (2) COPD (chronic obstructive pulmonary disease): Status: Acute (3) TAURUS (obstructive sleep apnea): Status: Acute (4) Oxygen dependent: Status: Acute (5) Acute on chronic respiratory failure with hypoxia and hypercapnia: Status: Acute Plan Atrial fibrillation could be related to her chronic respiratory issues as well as weight. Highly unlikely that she can be managed by rhythm control. Hence most likely will need to resort to rate control only. Listed to be on diltiazem. We can add digoxin with loading. Already on Eliquis for anticoagulation. Per recent limited echocardiogram, LVEF 65%. In the study prior to that, valves not well visualized but nothing obvious noted. Discussed with hospitalist. Time Spent With Patient Time: Total time managing care of this patient today ____ minutes. Progress Note: Quality Stroke Does the patient have a stroke diagnosis?: No Procedures Date of Service Date of Service: 03/25/23
[2023-03-25 11:34] LABS: Glucose, Whole Blood 532 mg/dL (60-115)
[2023-03-25 11:42] LABS: B Type Natriuretic Peptide 412 pg/mL (<100)
[2023-03-25] MEDS: Insulin Lispro 100 UNIT/ML 3 ML VIAL 20 UNIT SUBCUT (11:55)
--- NOTE | 2023-03-25 15:46 | HO.PM.IMPN ---
Subjective Subjective Date of Service: 03/25/23 Interval History: Breathing deteriorated this a.m. requiring BiPAP. Given initial dose of 60 of Lasix with poor output. BNP to PE reina to 450 Review of Systems Denies chest pain Admits shortness of breath Denies nausea vomiting diarrhea Denies fever chills Physical Exam Vital Signs: Vital Signs: Last Vital Signs Temp 97.1 F 03/25/23 12:00 Pulse 103 H 03/25/23 15:17 Resp 21 H 03/25/23 15:17 BP 126/77 03/25/23 12:00 Pulse Ox 87 L 03/25/23 12:00 O2 Del Method BiPAP 03/25/23 12:00 O2 Flow Rate 11 03/25/23 07:34 FiO2 55.2 03/25/23 12:00 BMI result Body Mass Index 55.1 Const: Other: Stable on BiPAP Resp: Other: Diminished throughout with scant crackles at bases Cardio: Other: No S4; positive S1-S2; no S3 murmurs rubs or gallops GI: Other: Obese positive bowel sounds Extrem: Other: Bilateral edema Objective Data Active Medications Acetaminophen (Acetaminophen 325 Mg Tablet) 650 mg PO Q6H PRN PRN Reason: Pain, Mild (Pain Scale 1-3) Last Admin: 03/23/23 21:56 Dose: 650 mg Documented By: IRAM Albuterol Sulfate (Albuterol Sulfate (0.083%) 2.5 Mg/3 Ml Vial.Neb) 2.5 mg INHALE RQ4H WHILE AWAKE [facility] Last Admin: 03/25/23 15:15 Dose: 2.5 mg Documented By: CHELY Amlodipine Besylate (Amlodipine Besylate 10 Mg Tablet) 10 mg PO DAILY [facility]; Protocol Last Admin: 03/25/23 08:22 Dose: 10 mg Documented By: DARIEL Apixaban (Apixaban 5 Mg Tablet) 5 mg PO BID [facility] Last Admin: 03/25/23 08:22 Dose: 5 mg Documented By: DARIEL Atorvastatin Calcium (Atorvastatin Calcium 80 Mg Tablet) 80 mg PO BEDTIME [facility] Last Admin: 03/24/23 20:10 Dose: 80 mg Documented By: ECHO Dextrose (Dextrose 50 % 25 Gm/50 Ml Syringe) 25 gm IVPUSH Q15M PRN; Protocol PRN Reason: per Hypoglycemia Standing Ord. Diltiazem HCl (Diltiazem Hcl Cd 180 Mg Cap.Er.24h) 360 mg PO DAILY [facility]; Protocol Last Admin: 03/25/23 08:23 Dose: 360 mg Documented By: DARIEL Fluticasone Propionate (Fluticasone Propionate Nasal 16 Gm [place]) 1 spray NOSTRIL-B DAILY PRN PRN Reason: Allergy Symptoms Glucose (Glucose Gel 15 Gm Gel..Gram.) 15 gm PO Q15M PRN; Protocol PRN Reason: per Hypoglycemia Standing Ord. Diltiazem HCl 125 mg/ Sodium (Chloride) 125 mls @ 0 mls/hr IVCONT .Q0M [facility]; Protocol Last Titration: 03/25/23 11:01 Dose: 0 mg/hr, 0 mls/hr Documented By: DARIEL Furosemide 200 mg/ Sodium (Chloride) 100 mls @ 2.5 mls/hr IVCONT .Q24H [facility] Insulin Glargine (Insulin Glargine,Hum.Rec.Anlog 100 Unit/Ml 10 Ml Vial) 25 unit SUBCUT BEDTIME [facility] Last Admin: 03/24/23 21:00 Dose: 25 unit Documented By: ECHO Insulin Human Lispro (Insulin Lispro 100 Unit/Ml 3 Ml Vial) 0 unit SUBCUT QIDACHS [facility]; Protocol Last Admin: 03/25/23 11:55 Dose: 10 unit Documented By: VERONICA Methylprednisolone Sodium Succinate (Methylprednisolone Sod Succ 40 Mg/Ml Vial) 40 mg IVPUSH Q12H [facility] Last Admin: 03/25/23 08:22 Dose: 40 mg Documented By: DARIEL Non-Formulary Medication (Dulaglutide [Trulicity]) 0.75 mg SUBCUT TU@1430 [facility] Ondansetron HCl (Ondansetron Hcl 4 Mg/2 Ml Vial) 4 mg IVPUSH Q8H PRN PRN Reason: Nausea and Vomiting Potassium Chloride (Potassium Chloride Packet 20 Meq Packet) 20 meq PO DAILY [facility] Last Admin: 03/25/23 08:22 Dose: 20 meq Documented By: DARIEL Senna (Sennosides 8.6 Mg Tablet) 17.2 mg PO BID PRN PRN Reason: constipation Sodium Chloride (0.9 % Sodium Chloride Flush 3 Ml Syringe) 3 ml IVFLUSH QSHIFT [facility] Last Admin: 10/16/23 15:22 Dose: 3 ml Documented By: MERLE Spironolactone (Spironolactone 25 Mg Tablet) 25 mg PO DAILY [facility]; Protocol Last Admin: 03/25/23 08:23 Dose: 25 mg Documented By: DARIEL Thiamine HCl (Thiamine Hcl 100 Mg Tablet) 100 mg PO DAILY [facility] Last Admin: 03/25/23 08:23 Dose: 100 mg Documented By: DARIEL Labs 03/24/23 05:30 03/24/23 05:30 Labs: Laboratory Results - last 24 hr 03/24/23 03/25/23 03/25/23 20:12 07:31 11:12 Hold Purple Top SEE NOTE POC Glucose 444 H* 385 H* B-Natriuretic Peptide 412 H Hold Yellow Top See Note 03/25/23 11:29 Hold Purple Top POC Glucose 532 H* B-Natriuretic Peptide Hold Yellow Top Microbiology Microbiology Results: Microbiology 03/23/23 09:03 Blood Culture - Preliminary Blood - Venous No growth after 48 hours. 03/23/23 08:45 Blood Culture - Preliminary Blood - Venous No growth after 48 hours. Assessment and Plan (1) Atrial fibrillation with RVR: Status: Acute (2) TAURUS (obstructive sleep apnea): Status: Acute (3) Acute on chronic diastolic heart failure: Status: Acute Plan 62-year-old woman admitted with acute hypoxic respiratory failure secondary to COPD exacerbation and atrial fibrillation with rapid ventricular response in backdrop of chronic diastolic heart failure. Last discharge 02/22/2023 and treated for the same 1. Acute on chronic diastolic heart failure in backdrop of COPD exacerbation -now on BiPAP secondary to worsening clinically; morphine p.r.n. for respiratory anxiety -poor response to pulse dose IV Lasix with increase in BNP -IV Lasix drip overnight -check renals/divalents in am -low threshold for Diamox 2.Atrial fibrillation with rapid ventricular response -wean off Cardizem drip follow heart rate response -continue Eliquis -rate control needs to be optimized 3.Diabetes mellitus type 2 -acceptable control on current therapies -continue basal/lispro correctional scale -adjust as indicated Eliquis Full code Continued hospital stay for treatment of acute hypoxic respiratory failure secondary to COPD exacerbation requiring BiPAP and IV diuresis Time Spent With Patient Time: Total time managing care of this patient today ____ minutes. Quality Stroke Does the patient have a stroke diagnosis?: No VTE Prior VTE?: No VTE Risk Level:: Medical - moderate - high VTE Device Contraindication: Treatment Not Indicated VTE Drug Contraindication: N/A - Med Ordered
[2023-03-25] MEDS: Morphine Sulfate 4 MG/ML CARTRIDGE IVPUSH (16:11)
[2023-03-25] MEDS: Furosemide 200 MG in 0.9 % Sodium Chloride 80 ML IVCONT (16:15)
[2023-03-25 16:16] LABS: Glucose, Whole Blood 542 mg/dL (60-115)
[2023-03-25] MEDS: Insulin Lispro 100 UNIT/ML 3 ML VIAL 10 UNIT SUBCUT (17:25)
[2023-03-25 20:41] LABS: Glucose, Whole Blood 472 mg/dL (60-115)
[2023-03-25] MEDS: Atorvastatin Calcium 80 MG TABLET PO (21:38)
[2023-03-25] MEDS: Insulin Glargine,Hum.rec.anlog 100 UNIT/ML 10 ML VIAL 25 UNIT SUBCUT (21:38)
[2023-03-25] MEDS: Insulin Regular, Human 100 UNIT/ML 3 ML VIAL IVPUSH (21:46)
[2023-03-26] VITALS (17 sets, daily range): BP systolic 147–171; BP diastolic 56–97; PULSE 89–123; RESP 14–28; TEMP 36.1–37; O2SAT 88–110
[2023-03-26 07:41] LABS: Glucose, Whole Blood 404 mg/dL (60-115)
[2023-03-26] MEDS: Albuterol Sulfate (0.083%) 2.5 MG/3 ML VIAL.NEB INHALE ×4 (08:10→18:46)
[2023-03-26] MEDS: Insulin Lispro 100 UNIT/ML 3 ML VIAL 20 UNIT SUBCUT ×2 (08:47→12:05)
[2023-03-26] MEDS: methylPREDNISolone Sod Succ 40 MG/ML VIAL IVPUSH ×2 (08:49→21:20)
[2023-03-26] MEDS: Potassium Chloride Packet 20 MEQ PACKET PO (08:49)
[2023-03-26] MEDS: 0.9 % Sodium Chloride Flush 3 ML SYRINGE IVFLUSH ×2 (08:49→16:37)
[2023-03-26 11:12] LABS: Glucose, Whole Blood 413 mg/dL (60-115)
[2023-03-26 12:25] LABS: Basophils Percent Auto 0.1 % (0-2); Hematocrit 35.4 % (37.0-47.0); Hemoglobin 10.3 g/dl (12.0-16.0); Imm Gran Abs Auto 0.24 X10*3/uL (0.00-0.03); Imm Gran Pct Auto 1.3 % (0.0-0.4); Lymphocytes Absolute Auto 0.3 X10*3/uL (1.2-4.9); Lymphocytes Percent Auto 1.6 % (20-40); MANUAL DIFF FLAG SCAN; Mean Corpuscular HGB Conc 29.1 g/dl (31.0-35.0); Mean Corpuscular Hemoglobin 25.9 pg (27.0-33.0); Mean Corpuscular Volume 88.9 fL (80.0-98.0); Mean Platelet Volume 9.7 fL (9.4-12.3); Monocytes Percent Auto 5.8 % (2-11); NRBC Pct Auto 0.3 /100WBC (0.0-0.2); Neutrophils Absolute Auto 16.3 x10*3/uL (2.0-8.3); Neutrophils Percent Auto 91.2 % (45-73); Platelet Count 507 X10*3/uL (160-400); Red Blood Count 3.98 X10*6/uL (4.20-5.50); Red Cell Distribution Width 15.6 % (11.0-16.0); SCAN SMEAR FLAG 1; White Blood Count 17.9 X10*3/uL (4.8-10.8)
[2023-03-26 12:30] LABS: Venous Blood Gas Refer to POC result
[2023-03-26 12:30] LABS: VBG Base Excess 17.5 mmol/L; VBG HCO3 46 mmol/L (22-26); VBG pCO2 72 mmHg; VBG pH 7.41 (7.32-7.43); VBG pO2 89 mmHg
[2023-03-26 13:01] LABS: B Type Natriuretic Peptide 545 pg/mL (<100)
[2023-03-26 13:05] LABS: SLIDE REVIEW VERIFIED
[2023-03-26 13:35] LABS: Alanine Aminotransferase 22 U/L (0-31); Albumin Level 4.8 g/dL (3.5-5.0); Alkaline Phosphatase 103 U/L (39-117); Anion Gap 22 (12-20); Aspartate Amino Transferase 16 U/L (5-31); Bilirubin Total 0.5 mg/dL (0.0-1.0); Blood Urea Nitrogen 56 mg/dL (9-16); Calcium 9.2 mg/dL (8.4-10.2); Carbon Dioxide 35 mmol/L (22-29); Chloride 86 mmol/L (96-108); Creatinine Clr Calc Pharmacy 52.4; Estimated Glomerular Filt Rate 40; Glucose Fasting 442 mg/dL (60-99); Potassium 6.5 mmol/L (3.3-5.1); Sodium 136 mmol/L (135-145); Total Protein 8.3 g/dL (6.5-8.0)
[2023-03-26] MEDS: acetaZOLAMIDE sodium 500 MG VIAL 250 MG IVPUSH (13:38)
[2023-03-26] MEDS: Insulin Regular, Human 100 UNIT/ML 3 ML VIAL 10 UNIT IVPUSH (14:22)
--- NOTE | 2023-03-26 15:03 | P.EN_ITS ---
Event Note Date of Service: 03/26/23 Event Note: Ms. Aguilar is a 62 Y F with morbid obesity c/b obesity hypoventilation syndrome, obstructive sleep apnea, COPD, CHF, with frequent admissions for acute on chronic mixed respiratory failure, presenting with dyspnea, admitted floor for diuresis and non-invasive positive pressure ventilation; patient appears to require near-constant NIPPV; patient appeared more somnolent today, prompting ICU consult; upon my evaluation, patient with NIPPV, in no acute distress, eas raghav arousable with minimal verbal stimulus; patient discussed with Dr. Hackett, who is amendable to keeping patient on floor with NIPPV given improvement of somnolence; ICU available for additional questions, concerns, or changes in clinical status Time Spent With Patient Time: Total time managing care of this patient today ____ minutes.
--- NOTE | 2023-03-26 15:22 | HO.PM.IMPN ---
Subjective Subjective Date of Service: 03/26/23 Interval History: Remains stable on NIPPV. Somnolent but arousable. Seen by ICU; acceptable for telemetry will follow if needed Review of Systems Unable to obtain Physical Exam Vital Signs: Vital Signs: Last Vital Signs Temp 98.0 F 03/26/23 15:08 Pulse 95 03/26/23 15:08 Resp 20 03/26/23 15:08 BP 160/89 H 03/26/23 15:08 Pulse Ox 91 L 03/26/23 15:08 O2 Del Method BiPAP 03/26/23 15:08 O2 Flow Rate 11 03/25/23 07:34 FiO2 50 03/26/23 15:08 BMI result Body Mass Index 55.1 Const: Other: Stable on BiPAP Resp: Other: Diminished throughout with scant crackles at bases Cardio: Other: No S4; positive S1-S2; no S3 murmurs rubs or gallops GI: Other: Obese positive bowel sounds Extrem: Other: Bilateral edema Objective Data Active Medications Acetaminophen (Acetaminophen 325 Mg Tablet) 650 mg PO Q6H PRN PRN Reason: Pain, Mild (Pain Scale 1-3) Last Admin: 03/23/23 21:56 Dose: 650 mg Documented By: IRAM Acetazolamide (Acetazolamide Sodium 500 Mg Vial) 250 mg IVPUSH Q12H EUGENIO Stop: 03/27/23 13:16 Last Admin: 03/26/23 13:38 Dose: 250 mg Documented By: MANDEEP Albuterol Sulfate (Albuterol Sulfate (0.083%) 2.5 Mg/3 Ml Vial.Neb) 2.5 mg INHALE RQ4H WHILE AWAKE [facility] Last Admin: 03/26/23 11:49 Dose: 2.5 mg Documented By: LINO Amlodipine Besylate (Amlodipine Besylate 10 Mg Tablet) 10 mg PO DAILY [facility]; Protocol Last Admin: 03/26/23 09:04 Dose: Not Given Documented By: MANDEEP Non-Admin Reason: patient unable to stay awake Apixaban (Apixaban 5 Mg Tablet) 5 mg PO BID [facility] Last Admin: 03/26/23 09:04 Dose: Not Given Documented By: MANDEEP Non-Admin Reason: patient unable to stay awake Atorvastatin Calcium (Atorvastatin Calcium 80 Mg Tablet) 80 mg PO BEDTIME [facility] Last Admin: 03/25/23 21:38 Dose: 80 mg Documented By: MERLE Dextrose (Dextrose 50 % 25 Gm/50 Ml Syringe) 25 gm IVPUSH Q15M PRN; Protocol PRN Reason: per Hypoglycemia Standing Ord. Fluticasone Propionate (Fluticasone Propionate Nasal 16 Gm [place]) 1 spray NOSTRIL-B DAILY PRN PRN Reason: Allergy Symptoms Glucose (Glucose Gel 15 Gm Gel..Gram.) 15 gm PO Q15M PRN; Protocol PRN Reason: per Hypoglycemia Standing Ord. Diltiazem HCl 125 mg/ Sodium (Chloride) 125 mls @ 0 mls/hr IVCONT .Q0M [facility]; Protocol Last Titration: 03/25/23 11:01 Dose: 0 mg/hr, 0 mls/hr Documented By: DARIEL Insulin Glargine (Insulin Glargine,Hum.Rec.Anlog 100 Unit/Ml 10 Ml Vial) 25 unit SUBCUT BEDTIME [facility] Last Admin: 03/25/23 21:38 Dose: 25 unit Documented By: MERLE Insulin Human Lispro (Insulin Lispro 100 Unit/Ml 3 Ml Vial) 0 unit SUBCUT QIDACHS [facility]; Protocol Last Admin: 03/26/23 12:01 Dose: Not Given Documented By: MANDEEP Non-Admin Reason: Giving one time dose of 20 units Methylprednisolone Sodium Succinate (Methylprednisolone Sod Succ 40 Mg/Ml Vial) 40 mg IVPUSH Q12H [facility] Last Admin: 03/26/23 08:49 Dose: 40 mg Documented By: MANDEEP Morphine Sulfate (Morphine Sulfate 4 Mg/Ml Cartridge) 4 mg IVPUSH Q4H PRN; Protocol PRN Reason: Restlessness Last Admin: 03/25/23 16:11 Dose: 4 mg Documented By: MERLE Non-Formulary Medication (Dulaglutide [Trulicity]) 0.75 mg SUBCUT TU@1430 EUGENIO Ondansetron HCl (Ondansetron Hcl 4 Mg/2 Ml Vial) 4 mg IVPUSH Q8H PRN PRN Reason: Nausea and Vomiting Senna (Sennosides 8.6 Mg Tablet) 17.2 mg PO BID PRN PRN Reason: constipation Sodium Chloride (0.9 % Sodium Chloride Flush 3 Ml Syringe) 3 ml IVFLUSH QSHIFT [facility] Last Admin: 03/26/23 08:49 Dose: 3 ml Documented By: MANDEEP Spironolactone (Spironolactone 25 Mg Tablet) 25 mg PO DAILY [facility]; Protocol Last Admin: 03/26/23 09:03 Dose: Not Given Documented By: MANDEEP Non-Admin Reason: patient unable to stay awake Thiamine HCl (Thiamine Hcl 100 Mg Tablet) 100 mg PO DAILY [facility] Last Admin: 03/26/23 09:03 Dose: Not Given Documented By: MANDEEP Non-Admin Reason: patient unable to stay awake Labs 03/26/23 12:17 03/26/23 12:17 Labs: Laboratory Results - last 24 hr 03/25/23 03/25/23 03/26/23 16:05 20:21 07:21 MCV MCH MCHC RDW Plt Count MPV Immature Gran % (Auto) Neut % (Auto) Lymph % (Auto) [place] % (Auto) Eos % (Auto) Baso % (Auto) Lymph # (Auto) [place] # (Auto) Eos # (Auto) Baso # (Auto) Abs Immat Gran (auto) Absolute Neuts (auto) Absolute Nucleated RBC Nucleated RBC % (auto) Smear Tech's Comments VBG pH VBG pCO2 VBG pO2 VBG HCO3 VBG O2 Saturation VBG Base Excess Anion Gap Estim Creat Clear Calc Estimated GFR POC Glucose 542 H* 472 H* 404 H* Fasting Glucose Calcium Total Bilirubin AST ALT Alkaline Phosphatase B-Natriuretic Peptide Total Protein Albumin 03/26/23 03/26/23 03/26/23 11:03 12:17 12:25 MCV 88.9 MCH 25.9 L MCHC 29.1 L RDW 15.6 Plt Count 507 H MPV 9.7 Immature Gran % (Auto) 1.3 H Neut % (Auto) 91.2 H Lymph % (Auto) 1.6 L [place] % (Auto) 5.8 Eos % (Auto) 0.0 Baso % (Auto) 0.1 Lymph # (Auto) 0.3 L [place] # (Auto) 1.0 Eos # (Auto) 0.0 Baso # (Auto) 0.0 Abs Immat Gran (auto) 0.24 H Absolute Neuts (auto) 16.3 H Absolute Nucleated RBC 0.060 H Nucleated RBC % (auto) 0.3 H Smear Tech's Comments VERIFIED VBG pH 7.41 VBG pCO2 72 VBG pO2 89 VBG HCO3 46 H VBG O2 Saturation 99.0 VBG Base Excess 17.5 Anion Gap 22 H Estim Creat Clear Calc 52.4 Estimated GFR 40 POC Glucose 413 H* Fasting Glucose 442 H* Calcium 9.2 D Total Bilirubin 0.5 AST 16 ALT 22 Alkaline Phosphatase 103 B-Natriuretic Peptide 545 H Total Protein 8.3 H Albumin 4.8 Assessment and Plan (1) Acute on chronic diastolic heart failure: Status: Acute Plan 62-year-old woman admitted with acute hypoxic respiratory failure secondary to COPD exacerbation and atrial fibrillation with rapid ventricular response in backdrop of chronic diastolic heart failure. Last discharge 02/22/2023 and treated for the same 1. Acute on chronic diastolic heart failure in backdrop of COPD exacerbation -now on BiPAP secondary to worsening clinically; morphine p.r.n. for respiratory anxiety -Diamox 250 IV x3 doses -check renals/divalents in am 2.Atrial fibrillation with rapid ventricular response -wean off Cardizem drip follow heart rate response -continue Eliquis -rate control needs to be optimized 3.Diabetes mellitus type 2 -unacceptable control on current therapies; NPO so will not adjust basal therapies -continue basal/lispro correctional scale -adjust as indicated Eliquis Full code Continued hospital stay for treatment of acute hypoxic respiratory failure secondary to COPD exacerbation requiring BiPAP and IV diuresis Time Spent With Patient Time: Total time managing care of this patient today ____ minutes. Quality Stroke Does the patient have a stroke diagnosis?: No VTE Prior VTE?: No VTE Risk Level:: Medical - moderate - high VTE Device Contraindication: Treatment Not Indicated VTE Drug Contraindication: N/A - Med Ordered
[2023-03-26 16:16] LABS: Glucose, Whole Blood 324 mg/dL (60-115)
[2023-03-26] MEDS: Insulin Lispro 100 UNIT/ML 3 ML VIAL SUBCUT ×2 (16:36→22:00)
[2023-03-26 20:00] LABS: Glucose, Whole Blood 330 mg/dL (60-115)
[2023-03-26] MEDS: Insulin Glargine,Hum.rec.anlog 100 UNIT/ML 10 ML VIAL 25 UNIT SUBCUT (22:01)
[2023-03-26] MEDS: Apixaban 5 MG TABLET PO (22:03)
[2023-03-27] VITALS (24 sets, daily range): BP systolic 121–163; BP diastolic 64–93; PULSE 102–138; RESP 8–26; TEMP 36.1–37.4; O2SAT 91–97
[2023-03-27] MEDS: acetaZOLAMIDE sodium 500 MG VIAL 250 MG IVPUSH (00:14)
[2023-03-27] MEDS: 0.9 % Sodium Chloride Flush 3 ML SYRINGE IVFLUSH ×4 (00:15→20:48)
--- NOTE | 2023-03-27 05:00 | MHC.PIE ---
P.DESAT I.PT REMOVED BIPAP,DESAT TO 20'S,INVOICE CODER CALLED.SLOW RECOVER WITH REAPPLICATION OF BIPAP.PT RESTLESS,MED WITH PRN MS 4MG IV.AGAIN REMOVING BIPAP.DR GUTIERREZ IN ROOM,ORDER GIVEN FOR ATIVAN 1 MG IV AND STAT VABG'S. E.ATIVAN GIVEN,PT RESTING QUIETLY.SATS CURRENTLY 92 ON AVAPS.CONT TO MONITOR.
[2023-03-27] MEDS: Morphine Sulfate 4 MG/ML CARTRIDGE IVPUSH (05:04)
--- NOTE | 2023-03-27 05:07 | PM.EVENT ---
Event Note Date of Service: 03/27/23 Event Note: Rapid response was called with the patient as she was found hypoxemic. Patient had removed her BiPAP mask. Oxygenation improved with BiPAP Time Spent With Patient Time: Total time managing care of this patient today ____ minutes.
[2023-03-27 05:44] LABS: Venous Blood Gas Refer to POC result
[2023-03-27 05:45] LABS: Basophils Percent Auto 0.1 % (0-2); Eosinophils Percent Auto 0.1 % (0-4); Hematocrit 34.5 % (37.0-47.0); Imm Gran Abs Auto 0.15 X10*3/uL (0.00-0.03); Imm Gran Pct Auto 1.2 % (0.0-0.4); Lymphocytes Absolute Auto 0.3 X10*3/uL (1.2-4.9); MANUAL DIFF FLAG SCAN; Mean Corpuscular Hemoglobin 25.4 pg (27.0-33.0); Mean Corpuscular Volume 87.8 fL (80.0-98.0); Mean Platelet Volume 9.5 fL (9.4-12.3); Monocytes Absolute Auto 0.5 X10*3/uL (0.1-1.2); Monocytes Percent Auto 4.2 % (2-11); NRBC Pct Auto 0.2 /100WBC (0.0-0.2); Neutrophils Absolute Auto 11.8 x10*3/uL (2.0-8.3); Neutrophils Percent Auto 92.4 % (45-73); Platelet Count 443 X10*3/uL (160-400); Red Blood Count 3.93 X10*6/uL (4.20-5.50); Red Cell Distribution Width 15.5 % (11.0-16.0); SCAN SMEAR FLAG 1; White Blood Count 12.7 X10*3/uL (4.8-10.8)
[2023-03-27 05:47] LABS: VBG Base Excess 17.2 mmol/L; VBG HCO3 45 mmol/L (22-26); VBG pCO2 68 mmHg; VBG pH 7.42 (7.32-7.43); VBG pO2 93 mmHg
[2023-03-27] MEDS: LORazepam 2 MG/ML VIAL 1 MG IVPUSH (05:49)
[2023-03-27 05:59] LABS: Alanine Aminotransferase 24 U/L (0-31); Albumin Level 4.4 g/dL (3.5-5.0); Alkaline Phosphatase 97 U/L (39-117); Anion Gap 17 (12-20); Aspartate Amino Transferase 20 U/L (5-31); Bilirubin Total 0.5 mg/dL (0.0-1.0); Blood Urea Nitrogen 44 mg/dL (9-16); Calcium 9.5 mg/dL (8.4-10.2); Carbon Dioxide 35 mmol/L (22-29); Chloride 90 mmol/L (96-108); Creatinine Clr Calc Pharmacy 79.9; Estimated Glomerular Filt Rate > 60; Glucose Fasting 360 mg/dL (60-99); Potassium 5.1 mmol/L (3.3-5.1); Sodium 137 mmol/L (135-145); Total Protein 7.7 g/dL (6.5-8.0)
[2023-03-27 06:03] LABS: SLIDE REVIEW VERIFIED
[2023-03-27 07:08] LABS: Glucose, Whole Blood 309 mg/dL (60-115)
[2023-03-27] MEDS: Albuterol Sulfate (0.083%) 2.5 MG/3 ML VIAL.NEB INHALE ×4 (07:23→21:05)
[2023-03-27] MEDS: Insulin Lispro 100 UNIT/ML 3 ML VIAL SUBCUT ×4 (08:37→20:47)
[2023-03-27] MEDS: methylPREDNISolone Sod Succ 40 MG/ML VIAL IVPUSH (08:37)
--- NOTE | 2023-03-27 09:51 | PM.CCPN ---
Subjective Subjective Date of Service: 03/27/23 Interval History: continued hypoxia and obtundation when not on AVAPS Critical Care Time (minutes): 90 Physical Exam Vital Signs: Vital Signs: Last Vital Signs Temp 97.5 F 03/27/23 07:23 Pulse 108 H 03/27/23 07:25 Resp 15 03/27/23 07:26 BP 131/93 H 03/27/23 07:23 Pulse Ox 97 03/27/23 07:23 O2 Del Method BiPAP 03/27/23 07:23 O2 Flow Rate 50 03/26/23 18:53 FiO2 50 03/27/23 07:23 BMI result Body Mass Index 55.1 Const: Other: morbidly obese; AVAPS in place; arousable with tactile stimulus HEENT: Head: Yes normal to inspection, Yes normocephalic and Yes atraumatic Eyes: General: appearance normal, both eyes and all related structures Neck: Neck: Yes normal visual inspection and Yes supple Chest: Chest palpation & inspection: normal inspection of the chest Resp: Other: decreased breath sounds throughout Cardio: Rhythm: abnormal rhythm irregularly irregular GI: Other: rotund abdomen Palpation (GI): Soft to palpation, not firm, nontender, no guarding and not rigid : External Female Exam: normal external appearance Skin: General skin exam: no rashes or lesions noted Neuro: General: moves all extremities and no focal motor deficits Extrem: General: Yes normal to inspection, Yes capillary refill normal and Yes no clubbing, cyanosis or edema Psych: Appearance: grossly normal Objective Data Labs 03/27/23 05:38 03/27/23 05:38 Labs: Laboratory Results - last 24 hr 03/26/23 03/26/23 03/26/23 11:03 12:17 12:25 WBC 17.9 H RBC 3.98 L Hgb 10.3 L Hct 35.4 L MCV 88.9 MCH 25.9 L MCHC 29.1 L RDW 15.6 Plt Count 507 H MPV 9.7 Immature Gran % (Auto) 1.3 H Neut % (Auto) 91.2 H Lymph % (Auto) 1.6 L [place] % (Auto) 5.8 Eos % (Auto) 0.0 Baso % (Auto) 0.1 Lymph # (Auto) 0.3 L [place] # (Auto) 1.0 Eos # (Auto) 0.0 Baso # (Auto) 0.0 Abs Immat Gran (auto) 0.24 H Absolute Neuts (auto) 16.3 H Absolute Nucleated RBC 0.060 H Nucleated RBC % (auto) 0.3 H Smear Tech's Comments VERIFIED VBG pH 7.41 VBG pCO2 72 VBG pO2 89 VBG HCO3 46 H VBG O2 Saturation 99.0 VBG Base Excess 17.5 Sodium 136 Potassium 6.5 H* D Chloride 86 L Carbon Dioxide 35 H Anion Gap 22 H BUN 56 H Creatinine 1.34 Estim Creat Clear Calc 52.4 Estimated GFR 40 POC Glucose 413 H* Fasting Glucose 442 H* Calcium 9.2 D Total Bilirubin 0.5 AST 16 ALT 22 Alkaline Phosphatase 103 B-Natriuretic Peptide 545 H Total Protein 8.3 H Albumin 4.8 03/26/23 03/26/23 03/27/23 16:12 19:55 05:38 WBC 12.7 H RBC 3.93 L Hgb 10.0 L Hct 34.5 L MCV 87.8 MCH 25.4 L MCHC 29.0 L RDW 15.5 Plt Count 443 H MPV 9.5 Immature Gran % (Auto) 1.2 H Neut % (Auto) 92.4 H Lymph % (Auto) 2.0 L [place] % (Auto) 4.2 Eos % (Auto) 0.1 Baso % (Auto) 0.1 Lymph # (Auto) 0.3 L [place] # (Auto) 0.5 Eos # (Auto) 0.0 Baso # (Auto) 0.0 Abs Immat Gran (auto) 0.15 H Absolute Neuts (auto) 11.8 H Absolute Nucleated RBC 0.020 H Nucleated RBC % (auto) 0.2 Smear Tech's Comments VERIFIED VBG pH VBG pCO2 VBG pO2 VBG HCO3 VBG O2 Saturation VBG Base Excess Sodium 137 Potassium 5.1 D Chloride 90 L Carbon Dioxide 35 H Anion Gap 17 BUN 44 H Creatinine 0.88 Estim Creat Clear Calc 79.9 Estimated GFR > 60 POC Glucose 324 H 330 H Fasting Glucose 360 H* Calcium 9.5 Total Bilirubin 0.5 AST 20 ALT 24 Alkaline Phosphatase 97 B-Natriuretic Peptide Total Protein 7.7 Albumin 4.4 03/27/23 03/27/23 05:41 06:57 WBC RBC Hgb Hct MCV MCH MCHC RDW Plt Count MPV Immature Gran % (Auto) Neut % (Auto) Lymph % (Auto) [place] % (Auto) Eos % (Auto) Baso % (Auto) Lymph # (Auto) [place] # (Auto) Eos # (Auto) Baso # (Auto) Abs Immat Gran (auto) Absolute Neuts (auto) Absolute Nucleated RBC Nucleated RBC % (auto) Smear Tech's Comments VBG pH 7.42 VBG pCO2 68 VBG pO2 93 VBG HCO3 45 H VBG O2 Saturation 99.0 VBG Base Excess 17.2 Sodium Potassium Chloride Carbon Dioxide Anion Gap BUN Creatinine Estim Creat Clear Calc Estimated GFR POC Glucose 309 H Fasting Glucose Calcium Total Bilirubin AST ALT Alkaline Phosphatase B-Natriuretic Peptide Total Protein Albumin Microbiology Microbiology Results: Microbiology 03/23/23 09:03 Blood - Venous Blood Culture - Preliminary No growth after 48 hours. 03/23/23 08:45 Blood - Venous Blood Culture - Preliminary No growth after 48 hours. Progress Note: A&P Assessment and plan (1) Acute on chronic diastolic heart failure: Status: Acute (2) Atrial fibrillation with RVR: Status: Acute (3) Acute on chronic respiratory failure with hypoxia and hypercapnia: Status: Acute Plan Assessment: Patient is a 62 Y F with morbid obesity, c/b OHS, TAURUS, COPD, CHF, c/b acute on chronic mixed respiratory failure, well-known to our institution, presenting with acute on chronic respiratory failure on 03/23, admitted floor, underwent empiric treatment for COPD, CHF exacerbations, though necessitating near constant AVAPS, likely representing end-stage lung disease Plan: N: intermittent agitation, obtundation, likely related to hypoxia, hypercarbia, respectively; to consider dexmedetomidine gtt to tolerate AVAPS CV: CHF, to continue diuresis; atrial fibrillation; to hold anticoagulation in anticipation for possible trach/PEG; to achieve reasonable rate control less than 110 R: acute on chronic mixed respiratory failure d/t multiple comorbidities; near constant AVAPS; general surgery consulted for possible trach/PEG GI: NPO : no acute issues; to monitor electrolytes closely in setting of diuresis H: to hold anticoagulation in anticipatin for possible trach/PEG ID: leukocytosis, though no current stigmata of infection; to continue to monitor E: diabetes mellitus; insulin regimen Quality Stroke Does the patient have a stroke diagnosis?: No VTE Prior VTE?: No VTE Risk Level:: Medical - moderate - high VTE Device Contraindication: Treatment Not Indicated VTE Drug Contraindication: N/A - Med Ordered
--- NOTE | 2023-03-27 10:27 | MHC.CM.PN ---
Per ROUNDS discussion, Patient may be transferred to ICU; CM will follow.
--- NOTE | 2023-03-27 10:57 | PM.CNGS ---
History of Present Illness Consult details Consult date: 03/27/23 <Joy Blum PA-C - Last Filed: 03/27/23 14:26> Reason for consult: other (trach/PEG) <HILL Josue Last Filed: 03/27/23 14:26> Requesting physician: Rylee Culp <Joy Blum PA-C - Last Filed: 03/27/23 14:26> Narrative: 62 year old female with morbid obesity c/b obesity hypoventilation syndrome, obstructive sleep apnea, COPD, CHF, with frequent admissions for acute on chronic mixed respiratory failure, presenting with dyspnea, admitted floor for diuresis and non-invasive positive pressure ventilation. Patient has however required near-constant NIPPV for hypoxia, somnolence concerning for end stage lung disease. She is being transferred to the ICU for further care. General surgery was consulted for possible trach/PEG. <Joy Blum PA-C - Last Filed: 03/27/23 14:26> Review of Systems Review of Systems: Yes Unobtainable due to mental condition <Joy Blum PA-C - Last Filed: 03/27/23 14:26> [facility] Past Medical History Medical History: Medical History (Updated 03/25/23 @ 15:49 by Lukas Hackett DO) Diastolic CHF COPD (chronic obstructive pulmonary disease) TAURUS (obstructive sleep apnea) Oxygen dependent Acute on chronic respiratory failure with hypoxia and hypercapnia Cor pulmonale (chronic) Morbid obesity Cocaine use disorder, mild, in sustained remission Obesity hypoventilation syndrome Cerebrovascular accident involving posterior circulation Moderate asthma Essential hypertension Diabetes mellitus <HILL Josue Last Filed: 03/27/23 14:26> Family History Family History: Family History Father Medical history unknown Mother Diabetes Hypertension Father Medical history unknown Mother Hypertension Diabetes Other Substance use disorder <HILL Josue Last Filed: 03/27/23 14:26> Surgical History Surgical History: Surgical History History of open reduction and internal fixation (ORIF) procedure History of tubal ligation History of cholecystectomy History of open reduction and internal fixation (ORIF) procedure History of tubal ligation History of cholecystectomy <Joy Blum PA-C - Last Filed: 03/27/23 14:26> Social History Social History: Social History Household Members: Spouse Housing: Apartment Do you presently have visiting nurse or other home services: Yes Alcohol intake: former Patient Tobacco Use Status: Former Tobacco user Tobacco use type: Cigarette Cigarette Packs Per Day: 0.75 Cigarettes Per Day: 15.0 Years Smoked: 31 years e-Cigarette/Vaping Use: Never Used Second Hand Smoke Exposure: Yes Substance Use Type: Crack/Cocaine Advance Directives Date on File: 08/28/21 service: No Current occupational status: disabled Cognitive needs: Yes (walker/wheelchair/cane) Hearing needs: No Vision needs: Yes <Joy Blum PA-C - Last Filed: 03/27/23 14:26> Meds Allergies/Adverse reactions: Allergies Allergy/AdvReac Type Severity Reaction Status Date / Time No Known Allergies Allergy Verified 03/14/23 10:24 <Joy Blum PA-C - Last Filed: 03/27/23 14:26> Active Medications: Current Medications Acetaminophen (Acetaminophen 325 Mg Tablet) 650 mg PO Q6H PRN PRN Reason: Pain, Mild (Pain Scale 1-3) Last Admin: 03/23/23 21:56 Dose: 650 mg Acetazolamide (Acetazolamide Sodium 500 Mg Vial) 250 mg IVPUSH Q12H EUGENIO Stop: 03/27/23 13:16 Last Admin: 03/27/23 00:14 Dose: 250 mg Albuterol Sulfate (Albuterol Sulfate (0.083%) 2.5 Mg/3 Ml Vial.Neb) 2.5 mg INHALE RQ4H WHILE AWAKE EUGENIO Last Admin: 03/27/23 07:23 Dose: 2.5 mg Amlodipine Besylate (Amlodipine Besylate 10 Mg Tablet) 10 mg PO DAILY EUGENIO; Protocol Last Admin: 03/27/23 08:32 Dose: Not Given Apixaban (Apixaban 5 Mg Tablet) 5 mg PO BID EUGENIO Last Admin: 03/27/23 08:32 Dose: Not Given Atorvastatin Calcium (Atorvastatin Calcium 80 Mg Tablet) 80 mg PO BEDTIME [facility] Last Admin: 03/26/23 22:02 Dose: Not Given Dextrose (Dextrose 50 % 25 Gm/50 Ml Syringe) 25 gm IVPUSH Q15M PRN; Protocol PRN Reason: per Hypoglycemia Standing Ord. Fluticasone Propionate (Fluticasone Propionate Nasal 16 Gm Trilla) 1 spray NOSTRIL-B DAILY PRN PRN Reason: Allergy Symptoms Glucose (Glucose Gel 15 Gm Gel..Gram.) 15 gm PO Q15M PRN; Protocol PRN Reason: per Hypoglycemia Standing Ord. Diltiazem HCl 125 mg/ Sodium (Chloride) 125 mls @ 0 mls/hr IVCONT .Q0M EUGENIO; Protocol Last Titration: 03/25/23 11:01 Dose: 0 mg/hr, 0 mls/hr Furosemide 200 mg/ Sodium (Chloride) 100 mls @ 2.5 mls/hr IVCONT .Q24H EUGENIO Dexmedetomidine HCl (Precedex) 400 mcg in 100 mls @ 0 mls/hr IVCONT .Q0M EUGENIO; Protocol Cefazolin Sodium/Dextrose (Ancef) 2 gm in 50 mls @ 100 mls/hr IV PREOP ONE Stop: 03/28/23 11:21 Insulin Glargine (Insulin Glargine,Hum.Rec.Anlog 100 Unit/Ml 10 Ml Vial) 25 unit SUBCUT BEDTIME [facility] Last Admin: 03/26/23 22:01 Dose: 25 unit Insulin Human Lispro (Insulin Lispro 100 Unit/Ml 3 Ml Vial) 0 unit SUBCUT QIDACHS [facility]; Protocol Last Admin: 03/27/23 08:37 Dose: 8 unit Methylprednisolone Sodium Succinate (Methylprednisolone Sod Succ 40 Mg/Ml Vial) 40 mg IVPUSH Q12H [facility] Last Admin: 03/27/23 08:37 Dose: 40 mg Ondansetron HCl (Ondansetron Hcl 4 Mg/2 Ml Vial) 4 mg IVPUSH Q8H PRN PRN Reason: Nausea and Vomiting Senna (Sennosides 8.6 Mg Tablet) 17.2 mg PO BID PRN PRN Reason: constipation Sodium Chloride (0.9 % Sodium Chloride Flush 3 Ml Syringe) 3 ml IVFLUSH QSHIFT [facility] Last Admin: 03/27/23 08:37 Dose: 3 ml Spironolactone (Spironolactone 25 Mg Tablet) 25 mg PO DAILY [facility]; Protocol Last Admin: 03/27/23 08:33 Dose: Not Given Thiamine HCl (Thiamine Hcl 100 Mg Tablet) 100 mg PO DAILY [facility] Last Admin: 03/27/23 08:33 Dose: Not Given <Joy Blum PA-C - Last Filed: 03/27/23 14:26> Home medications: Home Medications Medication Instructions Recorded Confirmed Last Taken Type sennosides 8.6 mg tablet (Senna 17.2 mg PO BID PRN constipation 01/07/23 03/23/23 Unknown History Lax) dulaglutide 0.75 mg/0.5 mL 0.75 mg subcut TU@1430 02/11/23 03/23/23 03/19/23 History subcutaneous pen injector (Trulicity) insulin lispro 100 unit/mL 1 sliding scale dose subcut 03/23/23 03/23/23 Unknown History subcutaneous pen USEASDIRECTD spironolactone 25 mg tablet 25 mg PO DAILY 03/23/23 03/23/23 Unknown History thiamine HCl (vitamin B1) 100 mg 100 mg PO DAILY 03/23/23 03/23/23 Unknown History tablet <Joy Blum PA-C - Last Filed: 03/27/23 14:26> Physical Exam Vital Signs: Vital Signs: Last Vital Signs Temp 97.6 F 03/27/23 10:45 Pulse 112 H 03/27/23 10:45 Resp 20 03/27/23 10:45 BP 138/88 03/27/23 10:45 Pulse Ox 96 03/27/23 10:45 O2 Del Method BiPAP 03/27/23 10:45 O2 Flow Rate 50 03/26/23 18:53 FiO2 50 03/27/23 10:45 BMI result Body Mass Index 55.1 <Joy Blum PA-C - Last Filed: 03/27/23 14:26> Const: Other: patient with BiPAP. Profoundly corpulent. <Favian Willams MD - Last Filed: 03/27/23 14:18> General: ill appearing other (somnolent) <HILL Josue Last Filed: 03/27/23 14:26> Neck: Other: large neck, trachea very difficult to palpate <Joy Blum PA-C - Last Filed: 03/27/23 14:26> Resp: Other: on BiPAP <Joy HILL Blum - Last Filed: 03/27/23 14:26> Effort & Inspection: respiratory distress and uses accessory muscles <HILL Josue Last Filed: 03/27/23 14:26> GI: Inspection: Yes scar and Yes other (corpulent abdomen ) <Joy HILL Blum Last Filed: 03/27/23 14:26> Palpation (GI): Soft to palpation, nontender, no guarding and not rigid <Joy Blum PA-C - Last Filed: 03/27/23 14:26> Abdomen image: 1. cholecystectomy scar <HILL Josue Last Filed: 03/27/23 14:26> Skin: General skin exam: no rashes or lesions noted <Joy Blum PA-C Radhames Last Filed: 03/27/23 14:26> Results Labs Result diagrams: 03/27/23 05:38 03/27/23 05:38 <Joy HILL Blum Radhames Last Filed: 03/27/23 14:26> Labs: Abnormal lab results 03/26/23 03/26/23 03/26/23 Range/Units 11:03 12:17 12:25 WBC 17.9 H (4.8-10.8) X10*3/uL RBC 3.98 L (4.20-5.50) X10*6/uL Hgb 10.3 L (12.0-16.0) g/dl Hct 35.4 L (37.0-47.0) % MCH 25.9 L (27.0-33.0) pg MCHC 29.1 L (31.0-35.0) g/dl Plt Count 507 H (160-400) X10*3/uL Immature Gran % (Auto) 1.3 H (0.0-0.4) % Neut % (Auto) 91.2 H (45-73) % Lymph % (Auto) 1.6 L (20-40) % Lymph # (Auto) 0.3 L (1.2-4.9) X10*3/uL Abs Immat Gran (auto) 0.24 H (0.00-0.03) X10*3/uL Absolute Neuts (auto) 16.3 H (2.0-8.3) x10*3/uL Absolute Nucleated RBC 0.060 H (0.0-0.012) X10*3/uL Nucleated RBC % (auto) 0.3 H (0.0-0.2) /100WBC VBG HCO3 46 H (22-26) mmol/L Potassium 6.5 H* D (3.3-5.1) mmol/L Chloride 86 L (96-108) mmol/L Carbon Dioxide 35 H (22-29) mmol/L Anion Gap 22 H (12-20) BUN 56 H (9-16) mg/dL POC Glucose 413 H* (60-115) mg/dL Fasting Glucose 442 H* (60-99) mg/dL B-Natriuretic Peptide 545 H (<100) pg/mL Total Protein 8.3 H (6.5-8.0) g/dL 03/26/23 03/26/23 03/27/23 Range/Units 16:12 19:55 05:38 WBC 12.7 H (4.8-10.8) X10*3/uL RBC 3.93 L (4.20-5.50) X10*6/uL Hgb 10.0 L (12.0-16.0) g/dl Hct 34.5 L (37.0-47.0) % MCH 25.4 L (27.0-33.0) pg MCHC 29.0 L (31.0-35.0) g/dl Plt Count 443 H (160-400) X10*3/uL Immature Gran % (Auto) 1.2 H (0.0-0.4) % Neut % (Auto) 92.4 H (45-73) % Lymph % (Auto) 2.0 L (20-40) % Lymph # (Auto) 0.3 L (1.2-4.9) X10*3/uL Abs Immat Gran (auto) 0.15 H (0.00-0.03) X10*3/uL Absolute Neuts (auto) 11.8 H (2.0-8.3) x10*3/uL Absolute Nucleated RBC 0.020 H (0.0-0.012) X10*3/uL Nucleated RBC % (auto) (0.0-0.2) /100WBC VBG HCO3 (22-26) mmol/L Potassium (3.3-5.1) mmol/L Chloride 90 L (96-108) mmol/L Carbon Dioxide 35 H (22-29) mmol/L Anion Gap (12-20) BUN 44 H (9-16) mg/dL POC Glucose 324 H 330 H (60-115) mg/dL Fasting Glucose 360 H* (60-99) mg/dL B-Natriuretic Peptide (<100) pg/mL Total Protein (6.5-8.0) g/dL 03/27/23 03/27/23 Range/Units 05:41 06:57 WBC (4.8-10.8) X10*3/uL RBC (4.20-5.50) X10*6/uL Hgb (12.0-16.0) g/dl Hct (37.0-47.0) % MCH (27.0-33.0) pg MCHC (31.0-35.0) g/dl Plt Count (160-400) X10*3/uL Immature Gran % (Auto) (0.0-0.4) % Neut % (Auto) (45-73) % Lymph % (Auto) (20-40) % Lymph # (Auto) (1.2-4.9) X10*3/uL Abs Immat Gran (auto) (0.00-0.03) X10*3/uL Absolute Neuts (auto) (2.0-8.3) x10*3/uL Absolute Nucleated RBC (0.0-0.012) X10*3/uL Nucleated RBC % (auto) (0.0-0.2) /100WBC VBG HCO3 45 H (22-26) mmol/L Potassium (3.3-5.1) mmol/L Chloride (96-108) mmol/L Carbon Dioxide (22-29) mmol/L Anion Gap (12-20) BUN (9-16) mg/dL POC Glucose 309 H (60-115) mg/dL Fasting Glucose (60-99) mg/dL B-Natriuretic Peptide (<100) pg/mL Total Protein (6.5-8.0) g/dL Short CBC 03/26/23 03/27/23 Range/Units 12:17 05:38 WBC 17.9 H 12.7 H (4.8-10.8) X10*3/uL Hgb 10.3 L 10.0 L (12.0-16.0) g/dl Hct 35.4 L 34.5 L (37.0-47.0) % Plt Count 507 H 443 H (160-400) X10*3/uL BMP 03/26/23 03/27/23 12:17 05:38 Sodium 136 137 Potassium 6.5 H* D 5.1 D Chloride 86 L 90 L Carbon Dioxide 35 H 35 H BUN 56 H 44 H Creatinine 1.34 0.88 Calcium 9.2 D 9.5 Liver Function 03/26/23 03/27/23 Range/Units 12:17 05:38 Total Bilirubin 0.5 0.5 (0.0-1.0) mg/dL AST 16 20 (5-31) U/L ALT 22 24 (0-31) U/L Alkaline Phosphatase 103 97 (39-117) U/L Albumin 4.8 4.4 (3.5-5.0) g/dL All other labs normal. <Joy Blum PA-C - Last Filed: 03/27/23 14:26> Imaging CT scan - chest: report reviewed and image reviewed <HILL Josue Last Filed: 03/27/23 14:26> Assessment and Plan (1) Acute on chronic diastolic heart failure: Status: Acute <HILL Josue Last Filed: 03/27/23 14:26> (2) COPD (chronic obstructive pulmonary disease): Status: Acute <HILL Josue Last Filed: 03/27/23 14:26> (3) Acute on chronic respiratory failure with hypoxemia: Status: Acute <HILL Josue Last Filed: 03/27/23 14:26> 62 year old female with morbid obesity, OHS, TAURUS, COPD, CHF, acute on chronic mixed respiratory failure with presenting with acute on chronic respiratory failure. She has been undergoing treatment for COPD, CHF exacerbations however has been necessitating near constant AVAPS, likely representing end-stage lung disease. Given frequent COPD exacerbations and hospitalizations and constant BiPAP, it was recommended to proceed with tracheostomy and PEG tube placement. This will be performed tomorrow in the OR as the patient is on OAC and her last dose was last night. PEG tube will be attempted however open technique may be necessary given the patient's body habitus and prior surgery. <Joy Blum PA-C - Last Filed: 03/27/23 14:26> Time Spent With Patient Time: Total time managing care of this patient today ____ minutes. <Joy Blum PA-C - Last Filed: 03/27/23 14:26> Procedures Date of Service Date of Service: 03/27/23 <Joy Blum PA-C - Last Filed: 03/27/23 14:26> 03/27/23 <Favian Willams MD - Last Filed: 03/27/23 14:18>
[2023-03-27 11:00] LABS: Glucose, Whole Blood 357 mg/dL (60-115)
[2023-03-27] MEDS: Furosemide 200 MG in 0.9 % Sodium Chloride 80 ML IVCONT (12:00)
[2023-03-27 14:22] LABS: VBG Base Excess 23.1 mmol/L; VBG HCO3 48 mmol/L (22-26); VBG pCO2 50 mmHg; VBG pH 7.58 (7.32-7.43); VBG pO2 83 mmHg
[2023-03-27 14:35] LABS: Venous Blood Gas Refer to POC result
[2023-03-27 14:47] LABS: Magnesium 2.5 mg/dL (1.6-2.6); Phosphorus 3.3 mg/dL (2.7-4.5)
[2023-03-27] MEDS: dilTIAZem HCL 125 MG in 0.9 % Sodium Chloride 100 ML 10 MG IVCONT (16:21)
[2023-03-27 16:36] LABS: Glucose, Whole Blood 330 mg/dL (60-115)
[2023-03-27 16:39] LABS: VBG Base Excess 21.2 mmol/L; VBG HCO3 50 mmol/L (22-26); VBG pCO2 85 mmHg; VBG pH 7.38 (7.32-7.43); VBG pO2 52 mmHg
[2023-03-27] MEDS: Bumetanide 1 MG/4 ML VIAL 2 MG IVPUSH (16:41)
[2023-03-27] MEDS: dilTIAZem HCL 50 MG/10 ML VIAL 10 MG IVPUSH (19:40)
[2023-03-27 19:47] LABS: Venous Blood Gas Refer to POC result
[2023-03-27 20:38] LABS: Glucose, Whole Blood 307 mg/dL (60-115)
[2023-03-27] MEDS: Insulin Glargine,Hum.rec.anlog 100 UNIT/ML 10 ML VIAL 25 UNIT SUBCUT (20:47)
[2023-03-27] MEDS: dilTIAZem HCL 125 MG in 0.9 % Sodium Chloride 100 ML 15 MG IVCONT (22:58)
[2023-03-27 23:23] LABS: VBG Base Excess 28.8 mmol/L; VBG HCO3 56 mmol/L (22-26); VBG pCO2 70 mmHg; VBG pH 7.51 (7.32-7.43); VBG pO2 63 mmHg
[2023-03-27] MEDS: acetaZOLAMIDE sodium 500 MG VIAL IVPUSH (23:40)
[2023-03-27 23:57] LABS: Venous Blood Gas Refer to POC result
[2023-03-28] VITALS (34 sets, daily range): BP systolic 94–163; BP diastolic 68–113; PULSE 82–138; RESP 10–24; TEMP 35–38; O2SAT 88–96; BMI 65.4
[2023-03-28 00:01] LABS: Alanine Aminotransferase 20 U/L (0-31); Albumin Level 4.1 g/dL (3.5-5.0); Alkaline Phosphatase 87 U/L (39-117); Anion Gap 16 (12-20); Aspartate Amino Transferase 10 U/L (5-31); Bilirubin Total 0.5 mg/dL (0.0-1.0); Blood Urea Nitrogen 40 mg/dL (9-16); Calcium 10.2 mg/dL (8.4-10.2); Carbon Dioxide 40 mmol/L (22-29); Chloride 88 mmol/L (96-108); Creatinine Clr Calc Pharmacy 90.2; Estimated Glomerular Filt Rate > 60; Glucose Random 293 mg/dL (60-115); Potassium 4.5 mmol/L (3.3-5.1); Sodium 139 mmol/L (135-145); Total Protein 7.1 g/dL (6.5-8.0)
[2023-03-28 04:45] LABS: VBG Base Excess 25.2 mmol/L; VBG HCO3 52 mmol/L (22-26); VBG pCO2 67 mmHg; VBG pO2 64 mmHg
[2023-03-28 04:46] LABS: Venous Blood Gas Refer to POC result
[2023-03-28 04:49] LABS: MANUAL DIFF FLAG NO
[2023-03-28 04:50] LABS: Basophils Percent Auto 0.1 % (0-2); Hemoglobin 9.7 g/dl (12.0-16.0); Imm Gran Abs Auto 0.09 X10*3/uL (0.00-0.03); Lymphocytes Absolute Auto 0.8 X10*3/uL (1.2-4.9); Lymphocytes Percent Auto 8.6 % (20-40); Mean Corpuscular HGB Conc 30.3 g/dl (31.0-35.0); Mean Corpuscular Hemoglobin 25.8 pg (27.0-33.0); Mean Corpuscular Volume 85.1 fL (80.0-98.0); Mean Platelet Volume 9.8 fL (9.4-12.3); Monocytes Absolute Auto 1.1 X10*3/uL (0.1-1.2); Monocytes Percent Auto 11.6 % (2-11); Neutrophils Absolute Auto 7.5 x10*3/uL (2.0-8.3); Neutrophils Percent Auto 78.7 % (45-73); Platelet Count 401 X10*3/uL (160-400); Red Blood Count 3.76 X10*6/uL (4.20-5.50); Red Cell Distribution Width 15.5 % (11.0-16.0); White Blood Count 9.5 X10*3/uL (4.8-10.8)
[2023-03-28 04:55] LABS: INTERNATIONAL NORM RATIO 1.2 (0.9-1.1)
[2023-03-28 04:57] LABS: Partial Thromboplastin Time 25.5 SEC (26.0-36.4)
[2023-03-28 05:07] LABS: Alanine Aminotransferase 18 U/L (0-31); Alkaline Phosphatase 83 U/L (39-117); Anion Gap 15 (12-20); Aspartate Amino Transferase 11 U/L (5-31); Bilirubin Total 0.5 mg/dL (0.0-1.0); Blood Urea Nitrogen 37 mg/dL (9-16); Calcium 10.1 mg/dL (8.4-10.2); Carbon Dioxide 39 mmol/L (22-29); Chloride 90 mmol/L (96-108); Creatinine Clr Calc Pharmacy 96.4; Estimated Glomerular Filt Rate > 60; Glucose Random 204 mg/dL (60-115); Magnesium 2.4 mg/dL (1.6-2.6); Phosphorus 2.3 mg/dL (2.7-4.5); Potassium 4.3 mmol/L (3.3-5.1); Sodium 140 mmol/L (135-145); Total Protein 6.8 g/dL (6.5-8.0)
[2023-03-28] MEDS: dilTIAZem HCL 125 MG in 0.9 % Sodium Chloride 100 ML 15 MG IVCONT ×2 (06:20→13:17)
[2023-03-28] MEDS: Potassium Phosphate/NS 15 MMOL/250 ML PLAST..BAG 62.5 MMOL IV (07:17)
[2023-03-28] MEDS: acetaZOLAMIDE sodium 500 MG VIAL IVPUSH (07:17)
[2023-03-28] MEDS: 0.9 % Sodium Chloride Flush 3 ML SYRINGE IVFLUSH ×2 (07:17→16:40)
[2023-03-28 07:21] LABS: Glucose, Whole Blood 168 mg/dL (60-115)
[2023-03-28] MEDS: Insulin Lispro 100 UNIT/ML 3 ML VIAL SUBCUT ×4 (07:23→20:56)
--- NOTE | 2023-03-28 07:32 | PM.CCPN ---
Subjective Subjective Date of Service: 03/28/23 Interval History: no interval overnight events Critical Care Time (minutes): 90 Physical Exam Vital Signs: Vital Signs: Last Vital Signs Temp 99.0 F 03/28/23 06:00 Pulse 91 03/28/23 06:00 Resp 14 03/28/23 06:00 BP 132/82 03/28/23 06:00 Pulse Ox 91 L 03/28/23 06:00 O2 Del Method BiPAP 03/28/23 06:00 O2 Flow Rate 50 03/26/23 18:53 FiO2 35 03/28/23 07:28 BMI result Body Mass Index 65.4 Const: Other: morbidly obese; alert with minimal verbal stimulus General: cooperative; No no acute distress HEENT: Head: Yes normal to inspection, Yes normocephalic and Yes atraumatic Eyes: General: appearance normal, both eyes and all related structures Neck: Neck: Yes normal visual inspection and Yes supple Chest: Chest palpation & inspection: normal inspection of the chest Resp: Other: decreased breath sounds throughout Cardio: Rhythm: abnormal rhythm GI: Inspection: Yes normal to inspection, No Abdominal wall edema and No distended Palpation (GI): Soft to palpation, not firm, nontender, no guarding and not rigid : External Female Exam: normal external appearance Skin: General skin exam: no rashes or lesions noted Neuro: General: moves all extremities and no focal motor deficits Extrem: Other: diffuse non-pitting edema General: Yes capillary refill normal Psych: Appearance: grossly normal Objective Data Labs 03/28/23 04:32 03/28/23 04:32 Labs: Laboratory Results - last 24 hr 03/27/23 03/27/23 03/27/23 10:48 14:13 14:16 WBC RBC Hgb Hct MCV MCH MCHC RDW Plt Count MPV Immature Gran % (Auto) Neut % (Auto) Lymph % (Auto) [place] % (Auto) Eos % (Auto) Baso % (Auto) Lymph # (Auto) [place] # (Auto) Eos # (Auto) Baso # (Auto) Abs Immat Gran (auto) Absolute Neuts (auto) Absolute Nucleated RBC Nucleated RBC % (auto) PT INR APTT VBG pH 7.58 H VBG pCO2 50 VBG pO2 83 VBG HCO3 48 H VBG O2 Saturation 99.0 VBG Base Excess 23.1 Sodium Potassium Chloride Carbon Dioxide Anion Gap BUN Creatinine Estim Creat Clear Calc Estimated GFR POC Glucose 357 H* Random Glucose Calcium Phosphorus 3.3 Magnesium 2.5 Total Bilirubin AST ALT Alkaline Phosphatase Total Protein Albumin 03/27/23 03/27/23 03/27/23 16:32 16:34 20:34 WBC RBC Hgb Hct MCV MCH MCHC RDW Plt Count MPV Immature Gran % (Auto) Neut % (Auto) Lymph % (Auto) [place] % (Auto) Eos % (Auto) Baso % (Auto) Lymph # (Auto) [place] # (Auto) Eos # (Auto) Baso # (Auto) Abs Immat Gran (auto) Absolute Neuts (auto) Absolute Nucleated RBC Nucleated RBC % (auto) PT INR APTT VBG pH 7.38 VBG pCO2 85 VBG pO2 52 VBG HCO3 50 H VBG O2 Saturation 77.0 VBG Base Excess 21.2 Sodium Potassium Chloride Carbon Dioxide Anion Gap BUN Creatinine Estim Creat Clear Calc Estimated GFR POC Glucose 330 H 307 H Random Glucose Calcium Phosphorus Magnesium Total Bilirubin AST ALT Alkaline Phosphatase Total Protein Albumin 03/27/23 03/27/23 03/28/23 23:13 23:17 04:32 WBC 9.5 RBC 3.76 L Hgb 9.7 L Hct 32.0 L MCV 85.1 MCH 25.8 L MCHC 30.3 L RDW 15.5 Plt Count 401 H MPV 9.8 Immature Gran % (Auto) 1.0 H Neut % (Auto) 78.7 H Lymph % (Auto) 8.6 L [place] % (Auto) 11.6 H Eos % (Auto) 0.0 Baso % (Auto) 0.1 Lymph # (Auto) 0.8 L [place] # (Auto) 1.1 Eos # (Auto) 0.0 Baso # (Auto) 0.0 Abs Immat Gran (auto) 0.09 H Absolute Neuts (auto) 7.5 Absolute Nucleated RBC 0.000 Nucleated RBC % (auto) 0.0 PT 14.0 H INR 1.2 H APTT 25.5 L VBG pH 7.51 H VBG pCO2 70 VBG pO2 63 VBG HCO3 56 H VBG O2 Saturation 93.0 VBG Base Excess 28.8 Sodium 139 140 Potassium 4.5 4.3 Chloride 88 L 90 L Carbon Dioxide 40 H* 39 H Anion Gap 16 15 BUN 40 H 37 H Creatinine 0.78 0.73 Estim Creat Clear Calc 90.2 96.4 Estimated GFR > 60 > 60 POC Glucose Random Glucose 293 H 204 H Calcium 10.2 D 10.1 Phosphorus 2.3 L Magnesium 2.4 Total Bilirubin 0.5 0.5 AST 10 11 ALT 20 18 Alkaline Phosphatase 87 83 Total Protein 7.1 6.8 Albumin 4.1 4.0 03/28/23 03/28/23 04:37 07:16 WBC RBC Hgb Hct MCV MCH MCHC RDW Plt Count MPV Immature Gran % (Auto) Neut % (Auto) Lymph % (Auto) [place] % (Auto) Eos % (Auto) Baso % (Auto) Lymph # (Auto) [place] # (Auto) Eos # (Auto) Baso # (Auto) Abs Immat Gran (auto) Absolute Neuts (auto) Absolute Nucleated RBC Nucleated RBC % (auto) PT INR APTT VBG pH 7.50 H VBG pCO2 67 VBG pO2 64 VBG HCO3 52 H VBG O2 Saturation 93.0 VBG Base Excess 25.2 Sodium Potassium Chloride Carbon Dioxide Anion Gap BUN Creatinine Estim Creat Clear Calc Estimated GFR POC Glucose 168 H Random Glucose Calcium Phosphorus Magnesium Total Bilirubin AST ALT Alkaline Phosphatase Total Protein Albumin Microbiology Microbiology Results: Microbiology 03/23/23 09:03 Blood - Venous Blood Culture - Preliminary No growth after 48 hours. 03/23/23 08:45 Blood - Venous Blood Culture - Preliminary No growth after 48 hours. Progress Note: A&P Assessment and plan (1) Atrial fibrillation with RVR: Status: Acute (2) Acute on chronic respiratory failure with hypoxia and hypercapnia: Status: Acute (3) Acute on chronic heart failure with preserved ejection fraction (HFpEF): Status: Acute (4) COPD (chronic obstructive pulmonary disease): Status: Acute Plan Assessment: Patient is a 62 Y F with morbid obesity, c/b OHS, TAURUS, COPD, CHF, c/b acute on chronic mixed respiratory failure, well-known to our institution, presenting with acute on chronic respiratory failure on 03/23, admitted floor, underwent empiric treatment for COPD, CHF exacerbations, though necessitating near constant AVAPS, likely representing end-stage lung disease Plan: N: intermittent agitation, obtundation, likely related to hypoxia, hypercarbia, respectively; to consider dexmedetomidine gtt to tolerate AVAPS CV: CHF, to continue diuresis; atrial fibrillation; to hold anticoagulation for trach/PEG today; to achieve reasonable rate control less than 110 R: acute on chronic mixed respiratory failure d/t multiple comorbidities; near constant AVAPS; trach/PEG today GI: NPO : no acute issues; to monitor electrolytes closely in setting of diuresis H: to hold anticoagulation for trach/PEG ID: leukocytosis, though no current stigmata of infection, improved; to continue to monitor; may-operative cefazolin E: diabetes mellitus; insulin regimen Quality Stroke Does the patient have a stroke diagnosis?: No VTE Prior VTE?: No VTE Risk Level:: Medical - moderate - high VTE Device Contraindication: Treatment Not Indicated VTE Drug Contraindication: Treatment Not Indicated
[2023-03-28] MEDS: Albuterol Sulfate (0.083%) 2.5 MG/3 ML VIAL.NEB INHALE ×4 (07:39→20:36)
[2023-03-28] MEDS: methylPREDNISolone Sod Succ 40 MG/ML VIAL IVPUSH (07:42)
[2023-03-28] MEDS: Bumetanide 1 MG/4 ML VIAL 2 MG IVPUSH ×2 (07:42→16:45)
--- NOTE | 2023-03-28 09:37 | PM.CCPN ---
Subjective Subjective Date of Service: 03/28/23 <Rylee Culp MD - Last Filed: 03/28/23 11:48> Interval History: This is a 62-year-old female with past medical history of heart failure with preserved ejection fraction, atrial fibrillation, hypoventilation syndrome with hypercarbia, obesity, obstructive sleep apnea, and chronic cor pulmonale presenting to the [facility] of care unit for increased respiratory requirements. The patient was admitted for daytime BiPAP requirements. The patient was escalated to intensive care due to decreased SpO2 with increased daytime BiPAP settings. Due to the chronic nature of the respiratory issues and ongoing respiratory requirement escalation, it was discussed with the on 03/27 who is the proxy that the patient receive a tracheostomy and percutaneous endoscopic gastrostomy tube. <Aristeo Stinson - Last Filed: 03/28/23 11:46> This is a 62-year-old female with past medical history of heart failure with preserved ejection fraction, atrial fibrillation, hypoventilation syndrome with hypercarbia, obesity, obstructive sleep apnea, and chronic cor pulmonale presenting to the [facility] care unit for increased respiratory requirements. The patient was admitted for daytime BiPAP requirements. The patient was escalated to intensive care due to decreased SpO2 with increased daytime BiPAP settings. Due to the chronic nature of the respiratory issues and ongoing respiratory requirement escalation, it was discussed with the on 03/27 who is the proxy that the patient receive a tracheostomy and percutaneous endoscopic gastrostomy tube. <Rylee Culp MD - Last Filed: 03/28/23 11:48> Critical Care Time (minutes): 90 <Rylee Culp MD - Last Filed: 03/28/23 11:48> Comment: 45 <Aristeo Stinson - Last Filed: 03/28/23 11:46> Physical Exam Vital Signs: Vital Signs: Last Vital Signs Temp 99.3 F 03/28/23 09:00 Pulse 99 03/28/23 09:00 Resp 15 03/28/23 09:00 BP 129/78 03/28/23 09:00 Pulse Ox 91 L 03/28/23 09:00 O2 Del Method BiPAP 03/28/23 09:00 O2 Flow Rate 50 03/26/23 18:53 FiO2 28 03/28/23 09:00 BMI result Body Mass Index 65.4 <Aristeo Stinson - Last Filed: 03/28/23 11:46> Const: General: lethargic and tired appearing <[facility] - Last Filed: 03/28/23 11:46> Orientation/consciousness: lethargic <[facility] - Last Filed: 03/28/23 11:46> HEENT: Other: BiPap mask over face. <[facility] - Last Filed: 03/28/23 11:46> Head: Yes normocephalic <[facility] - Last Filed: 03/28/23 11:46> Eyes: Other: Sclera anicteric. Conjuctiva pink. EOMI, PERRLA <[facility] - Last Filed: 03/28/23 11:46> Resp: Effort & Inspection: abnormal respiratory pattern, labored and tachypneic <[facility] - Last Filed: 03/28/23 11:46> Cardio: Other: Unable to assess for JVD due to habitus. S1 S2 intact, A-fib <[facility] - Last Filed: 03/28/23 11:46> GI: Inspection: Yes Abdominal panniculus present <[facility] - Last Filed: 03/28/23 11:46> Palpation (GI): Soft to palpation <[facility] - Last Filed: 03/28/23 11:46> Auscultation: Hypoactive bowel sounds present <[facility] - Last Filed: 03/28/23 11:46> Skin: General skin exam: no rashes or lesions noted <[facility] - Last Filed: 03/28/23 11:46> Neuro: Other: Lethargic, palestinian speaking only, follows commands <[facility] - Last Filed: 03/28/23 11:46> Extrem: General: Yes no clubbing, cyanosis or edema <[facility] Last Filed: 03/28/23 11:46> Objective Data Labs CBC & Chem 7: 03/28/23 04:32 03/28/23 04:32 <[facility] - Last Filed: 03/28/23 11:46> Labs: Laboratory Results - last 24 hr 03/27/23 03/27/23 03/27/23 10:48 14:13 14:16 WBC RBC Hgb Hct MCV MCH MCHC RDW Plt Count MPV Immature Gran % (Auto) Neut % (Auto) Lymph % (Auto) [place] % (Auto) Eos % (Auto) Baso % (Auto) Lymph # (Auto) [place] # (Auto) Eos # (Auto) Baso # (Auto) Abs Immat Gran (auto) Absolute Neuts (auto) Absolute Nucleated RBC Nucleated RBC % (auto) PT INR APTT VBG pH 7.58 H VBG pCO2 50 VBG pO2 83 VBG HCO3 48 H VBG O2 Saturation 99.0 VBG Base Excess 23.1 Sodium Potassium Chloride Carbon Dioxide Anion Gap BUN Creatinine Estim Creat Clear Calc Estimated GFR POC Glucose 357 H* Random Glucose Calcium Phosphorus 3.3 Magnesium 2.5 Total Bilirubin AST ALT Alkaline Phosphatase Total Protein Albumin 03/27/23 03/27/23 03/27/23 16:32 16:34 20:34 WBC RBC Hgb Hct MCV MCH MCHC RDW Plt Count MPV Immature Gran % (Auto) Neut % (Auto) Lymph % (Auto) [place] % (Auto) Eos % (Auto) Baso % (Auto) Lymph # (Auto) [place] # (Auto) Eos # (Auto) Baso # (Auto) Abs Immat Gran (auto) Absolute Neuts (auto) Absolute Nucleated RBC Nucleated RBC % (auto) PT INR APTT VBG pH 7.38 VBG pCO2 85 VBG pO2 52 VBG HCO3 50 H VBG O2 Saturation 77.0 VBG Base Excess 21.2 Sodium Potassium Chloride Carbon Dioxide Anion Gap BUN Creatinine Estim Creat Clear Calc Estimated GFR POC Glucose 330 H 307 H Random Glucose Calcium Phosphorus Magnesium Total Bilirubin AST ALT Alkaline Phosphatase Total Protein Albumin 03/27/23 03/27/23 03/28/23 23:13 23:17 04:32 WBC 9.5 RBC 3.76 L Hgb 9.7 L Hct 32.0 L MCV 85.1 MCH 25.8 L MCHC 30.3 L RDW 15.5 Plt Count 401 H MPV 9.8 Immature Gran % (Auto) 1.0 H Neut % (Auto) 78.7 H Lymph % (Auto) 8.6 L [place] % (Auto) 11.6 H Eos % (Auto) 0.0 Baso % (Auto) 0.1 Lymph # (Auto) 0.8 L [place] # (Auto) 1.1 Eos # (Auto) 0.0 Baso # (Auto) 0.0 Abs Immat Gran (auto) 0.09 H Absolute Neuts (auto) 7.5 Absolute Nucleated RBC 0.000 Nucleated RBC % (auto) 0.0 PT 14.0 H INR 1.2 H APTT 25.5 L VBG pH 7.51 H VBG pCO2 70 VBG pO2 63 VBG HCO3 56 H VBG O2 Saturation 93.0 VBG Base Excess 28.8 Sodium 139 140 Potassium 4.5 4.3 Chloride 88 L 90 L Carbon Dioxide 40 H* 39 H Anion Gap 16 15 BUN 40 H 37 H Creatinine 0.78 0.73 Estim Creat Clear Calc 90.2 96.4 Estimated GFR > 60 > 60 POC Glucose Random Glucose 293 H 204 H Calcium 10.2 D 10.1 Phosphorus 2.3 L Magnesium 2.4 Total Bilirubin 0.5 0.5 AST 10 11 ALT 20 18 Alkaline Phosphatase 87 83 Total Protein 7.1 6.8 Albumin 4.1 4.0 03/28/23 03/28/23 04:37 07:16 WBC RBC Hgb Hct MCV MCH MCHC RDW Plt Count MPV Immature Gran % (Auto) Neut % (Auto) Lymph % (Auto) [place] % (Auto) Eos % (Auto) Baso % (Auto) Lymph # (Auto) [place] # (Auto) Eos # (Auto) Baso # (Auto) Abs Immat Gran (auto) Absolute Neuts (auto) Absolute Nucleated RBC Nucleated RBC % (auto) PT INR APTT VBG pH 7.50 H VBG pCO2 67 VBG pO2 64 VBG HCO3 52 H VBG O2 Saturation 93.0 VBG Base Excess 25.2 Sodium Potassium Chloride Carbon Dioxide Anion Gap BUN Creatinine Estim Creat Clear Calc Estimated GFR POC Glucose 168 H Random Glucose Calcium Phosphorus Magnesium Total Bilirubin AST ALT Alkaline Phosphatase Total Protein Albumin <[facility] - Last Filed: 03/28/23 11:46> Microbiology Microbiology Results: Microbiology 03/23/23 09:03 Blood - Venous Blood Culture - Preliminary No growth after 48 hours. 03/23/23 08:45 Blood - Venous Blood Culture - Preliminary No growth after 48 hours. <[facility] Last Filed: 03/28/23 11:46> Progress Note: A&P Assessment and plan (1) Acute on chronic diastolic heart failure: Status: Acute <[facility] Last Filed: 03/28/23 11:46> (2) Atrial fibrillation with RVR: Status: Acute <[facility] Last Filed: 03/28/23 11:46> (3) Acute on chronic respiratory failure with hypoxia and hypercapnia: Status: Acute <[facility] Last Filed: 03/28/23 11:46> (4) COPD (chronic obstructive pulmonary disease): Status: Acute <[facility] Last Filed: 03/28/23 11:46> Assessment and Plan: Neurologic: Patient is currently receiving Ativan 1 mg for agitation. This was because the patient was pulling her mask off while admitted on the floor. Precedex drip on standyby for now. She is under the watch of a room camera for aspiration risk while we are waiting for general surgery to bring the patient down to the operating room. The patient also has a at the bedside continuously. Cardiovascular: patient has a history of chronic cor pulmonale as well as heart failure with preserved ejection fraction. cardiology was consulted. Injected fraction of 65%. The patient is currently on Eliquis for anticoagulation for their atrial fibrillation. The patient has also been intermittently placed on diltiazem drip per protocol for atrial fibrillation with rapid ventricular response. Studies have shown that in the setting of atrial fibrillation with heart failure, diltiazem is a superior rate controlling agent. Currently the patients rate has been around 101 in atrial fibrillation. The diltiazem is currently running at 125 mg per hour which we will continue up to the procedure. The patient is also receiving diuresis due to suspected volume overload. Currently they are getting 40 mg Lasix IV push every 6 to 8 hours. And will be continued up until the procedure as well. Respiratory: the patient has a history of obstructive sleep apnea, and hypo ventilation syndrome. The patient?s oxygen saturation level is around 90% and BiPAP settings of 16/8 with FiO2 of 30%. The patient?s current VBG read off as mixed respiratory alkalosis with metabolic compensation. The patient currently is on constant BiPAP and it was decided that they were going to get a tracheostomy which is scheduled for today with general surgery. Gastrointestinal: no issues at this time. Currently is NPO for surgery later. Renal/Genitourinary: no issues at this time. Currently diaries in a patient. We will continue to monitor I/O. Currently the 24 hour output has been 5 L. Hematology: patient is on anticoagulation for the atrial fibrillation. That has been on hold since yesterday 03/27 due to upcoming procedure today. Infectious disease: patient currently has a leukocytosis of 12. No reasonable suspicion for infection, patient is also on steroid to help with any underlying respiratory information. Patient also received a prophylactic antibiotic of 1 g of cefazolin. Endocrine: patient has history of type two diabetes mellitus. Currently the patient is being maintained on sliding scale lispro and glargine. Blood glucose levels have been ranging from 160s to low 300s. Patient is also on steroid inducing hyperglycemia. Continue to achieve Blood glucose of 180 or lower according to [employer] study. Integumentary: no acute issues at this time. With continuous and constant BiPAP mask, will continue to monitor for any signs of skin breakdown. <Aristeo Stinson - Last Filed: 03/28/23 11:46> Quality Stroke Does the patient have a stroke diagnosis?: No <Aristeo Stinson - Last Filed: 03/28/23 11:46> VTE Prior VTE?: No <Aristeo Stinson - Last Filed: 03/28/23 11:46> VTE Risk Level:: Medical - moderate - high <Aristeo Stinson - Last Filed: 03/28/23 11:46> VTE Device Contraindication: Treatment Not Indicated <Aristeo Stinson - Last Filed: 03/28/23 11:46> VTE Drug Contraindication: Treatment Not Indicated <[employer] [facility]Stinson - Last Filed: 03/28/23 11:46>
[2023-03-28 09:43] LABS: VBG HCO3 49 mmol/L (22-26); VBG pCO2 62 mmHg; VBG pH 7.51 (7.32-7.43); VBG pO2 99 mmHg
[2023-03-28 09:47] LABS: Venous Blood Gas Refer to POC result
--- NOTE | 2023-03-28 11:25 | P.CONAN_ITS ---
[facility] Active Problems Active Problems: All Active Problems (Updated 03/25/23 @ 15:49 by Lukas Hackett DO) Acute on chronic diastolic heart failure (Acute) Atrial fibrillation with RVR (Acute) Metabolic encephalopathy (Acute) Acute on chronic respiratory failure with hypoxia and hypercapnia (Acute) Acute on chronic heart failure with preserved ejection fraction (HFpEF) (Acute) Atrial fibrillation, new onset (Acute) Hypercapnia (Acute) Acute on chronic respiratory failure with hypoxemia (Acute) Obesity (Acute) Diastolic CHF (Acute) COPD (chronic obstructive pulmonary disease) (Acute) TAURUS (obstructive sleep apnea) (Acute) Oxygen dependent (Acute) Cor pulmonale (chronic) (Acute) Past Medical History Medical History Cor pulmonale (chronic) COPD (chronic obstructive pulmonary disease) Acute on chronic respiratory failure with hypoxia and hypercapnia Diastolic CHF TAURUS (obstructive sleep apnea) Morbid obesity Cocaine use disorder, mild, in sustained remission Obesity hypoventilation syndrome Oxygen dependent Cerebrovascular accident involving posterior circulation Moderate asthma Essential hypertension Diabetes mellitus Family History Family History Father Medical history unknown Mother Diabetes Hypertension Father Medical history unknown Mother Hypertension Diabetes Other Substance use disorder Surgical History Surgical History History of open reduction and internal fixation (ORIF) procedure History of tubal ligation History of cholecystectomy Social History Social History Household Members: Spouse Housing: Apartment Do you presently have visiting nurse or other home services: Yes Alcohol intake: former Patient Tobacco Use Status: Former Tobacco user Tobacco use type: Cigarette Cigarette Packs Per Day: 0.75 Cigarettes Per Day: 15.0 Years Smoked: 31 years e-Cigarette/Vaping Use: Never Used Second Hand Smoke Exposure: Yes Substance Use Type: Crack/Cocaine Advance Directives Date on File: 08/28/21 service: No Current occupational status: disabled Cognitive needs: Yes (walker/wheelchair/cane) Hearing needs: No Vision needs: Yes Meds Allergies Allergy/AdvReac Type Severity Reaction Status Date / Time No Known Allergies Allergy Verified 03/14/23 10:24 Active Medications: Current Medications Albuterol Sulfate (Albuterol Sulfate (0.083%) 2.5 Mg/3 Ml Vial.Neb) 2.5 mg INHALE RQ4H WHILE AWAKE [facility] Last Admin: 03/28/23 07:39 Dose: 2.5 mg Bumetanide (Bumetanide 1 Mg/4 Ml Vial) 2 mg IVPUSH BID@0900,1700 [facility]; Protocol Last Admin: 03/28/23 07:42 Dose: 2 mg Dextrose (Dextrose 50 % 25 Gm/50 Ml Syringe) 25 gm IVPUSH Q15M PRN; Protocol PRN Reason: per Hypoglycemia Standing Ord. Glucose (Glucose Gel 15 Gm Gel..Gram.) 15 gm PO Q15M PRN; Protocol PRN Reason: per Hypoglycemia Standing Ord. Diltiazem HCl 125 mg/ Sodium (Chloride) 125 mls @ 0 mls/hr IVCONT .Q0M [facility]; Protocol Last Admin: 03/28/23 06:20 Dose: 15 mg/hr, 15 mls/hr Insulin Glargine (Insulin Glargine,Hum.Rec.Anlog 100 Unit/Ml 10 Ml Vial) 30 unit SUBCUT BEDTIME [facility] Insulin Human Lispro (Insulin Lispro 100 Unit/Ml 3 Ml Vial) 0 unit SUBCUT QIDACHS [facility]; Protocol Last Admin: 03/28/23 07:23 Dose: 2 unit Methylprednisolone Sodium Succinate (Methylprednisolone Sod Succ 40 Mg/Ml Vial) 40 mg IVPUSH DAILY [facility] Last Admin: 03/28/23 07:42 Dose: 40 mg Sodium Chloride (0.9 % Sodium Chloride Flush 3 Ml Syringe) [facility] Last Admin: 03/28/23 07:17 Dose: 3 ml Home Medications Medication Instructions Recorded Confirmed Last Taken Type sennosides 8.6 mg tablet (Senna 17.2 mg PO BID PRN constipation 01/07/23 03/23/23 Unknown History Lax) dulaglutide 0.75 mg/0.5 mL 0.75 mg subcut TU@1430 02/11/23 03/23/23 03/19/23 History subcutaneous pen injector (Trulicity) insulin lispro 100 unit/mL 1 sliding scale dose subcut 03/23/23 03/23/23 Unknown History subcutaneous pen USEASDIRECTD spironolactone 25 mg tablet 25 mg PO DAILY 03/23/23 03/23/23 Unknown History thiamine HCl (vitamin B1) 100 mg 100 mg PO DAILY 03/23/23 03/23/23 Unknown History tablet Exam Exam Date and Time: March 28, 2023 1125 Height,Weight and Vital Signs: Height 4 ft 11 in Weight 147 kg Last Vital Signs Temp 99.7 F 03/28/23 11:00 Pulse 104 H 03/28/23 11:00 Resp 10 L 03/28/23 11:00 BP 126/77 03/28/23 11:00 Pulse Ox 90 L 03/28/23 11:00 O2 Del Method BiPAP 03/28/23 11:00 O2 Flow Rate 50 03/26/23 18:53 FiO2 35 03/28/23 11:00 Pertinent Lab Results Pertinent Lab Results: Laboratory Tests 03/23/23 03/23/23 03/23/23 08:45 08:53 09:04 WBC 11.6 H RBC 3.68 L D Hgb 9.6 L D Hct 32.4 L MCV 88.0 MCH 26.1 L MCHC 29.6 L RDW 16.0 Plt Count 467 H MPV 9.0 L Immature Gran % (Auto) 1.2 H Neut % (Auto) 80.5 H Lymph % (Auto) 12.1 L Giles % (Auto) 5.0 Eos % (Auto) 0.9 Baso % (Auto) 0.3 Lymph # (Auto) 1.4 Giles # (Auto) 0.6 Eos # (Auto) 0.1 Baso # (Auto) 0.0 Abs Immat Gran (auto) 0.14 H Absolute Neuts (auto) 9.4 H Absolute Nucleated RBC 0.030 H Nucleated RBC % (auto) 0.3 H Smear Tech's Comments Hold Purple Top PT INR APTT Hold Blue Top SEE NOTE O2 Saturation 97.0 ABG pH at Pt Temp 7.43 ABG pCO2 at Pt Temp 79 H* ABG pO2 at Pt Temp 87 ABG HCO3 53 H ABG Base Excess (Actual) 24.2 VBG pH VBG pCO2 VBG pO2 VBG HCO3 VBG O2 Saturation VBG Base Excess Sodium 141 Potassium 4.6 D Chloride 88 L Carbon Dioxide 38 H Anion Gap 20 BUN 10 Creatinine 0.65 Estim Creat Clear Calc 108.2 Estimated GFR > 60 POC Glucose Random Glucose 152 H Fasting Glucose Lactic Acid 2.9 H* Lactic Acid F/U @ 2Hr Lactic Acid F/U @ 4Hr Calcium 8.5 D Phosphorus Magnesium 1.6 Total Bilirubin 0.5 AST 21 ALT 12 Alkaline Phosphatase 80 Troponin I High Sens 6.0 D B-Natriuretic Peptide 196 H Total Protein 7.6 Albumin 4.1 Lipase 21 Hold Yellow Top Ethyl Alcohol < 10 COVID-19 (MICHEL) COVID-19 Clin Com 03/23/23 03/23/23 03/23/23 10:41 12:13 14:40 WBC RBC Hgb Hct MCV MCH MCHC RDW Plt Count MPV Immature Gran % (Auto) Neut % (Auto) Lymph % (Auto) Giles % (Auto) Eos % (Auto) Baso % (Auto) Lymph # (Auto) Giles # (Auto) Eos # (Auto) Baso # (Auto) Abs Immat Gran (auto) Absolute Neuts (auto) Absolute Nucleated RBC Nucleated RBC % (auto) Smear Tech's Comments Hold Purple Top PT INR APTT Hold Blue Top O2 Saturation ABG pH at Pt Temp ABG pCO2 at Pt Temp ABG pO2 at Pt Temp ABG HCO3 ABG Base Excess (Actual) VBG pH VBG pCO2 VBG pO2 VBG HCO3 VBG O2 Saturation VBG Base Excess Sodium Potassium Chloride Carbon Dioxide Anion Gap BUN Creatinine Estim Creat Clear Calc Estimated GFR POC Glucose Random Glucose Fasting Glucose Lactic Acid Lactic Acid F/U @ 2Hr 2.5 H* Lactic Acid F/U @ 4Hr 1.9 Calcium Phosphorus Magnesium Total Bilirubin AST ALT Alkaline Phosphatase Troponin I High Sens B-Natriuretic Peptide Total Protein Albumin Lipase Hold Yellow Top Ethyl Alcohol COVID-19 (MICHEL) Negative COVID-19 Clin Com See Note 03/24/23 03/24/23 03/24/23 05:30 08:23 12:00 WBC 9.9 RBC 3.73 L Hgb 9.5 L Hct 32.7 L MCV 87.7 MCH 25.5 L MCHC 29.1 L RDW 15.8 Plt Count 521 H MPV 9.6 Immature Gran % (Auto) 1.3 H Neut % (Auto) 86.2 H Lymph % (Auto) 7.9 L Giles % (Auto) 4.5 Eos % (Auto) 0.0 Baso % (Auto) 0.1 Lymph # (Auto) 0.8 L Giles # (Auto) 0.4 Eos # (Auto) 0.0 Baso # (Auto) 0.0 Abs Immat Gran (auto) 0.13 H Absolute Neuts (auto) 8.5 H Absolute Nucleated RBC 0.030 H Nucleated RBC % (auto) 0.3 H Smear Tech's Comments Hold Purple Top PT INR APTT Hold Blue Top O2 Saturation ABG pH at Pt Temp ABG pCO2 at Pt Temp ABG pO2 at Pt Temp ABG HCO3 ABG Base Excess (Actual) VBG pH 7.65 H* 7.37 VBG pCO2 43 96 VBG pO2 265 53 VBG HCO3 48 H 56 H VBG O2 Saturation 100.0 72.0 VBG Base Excess 25.2 25.8 Sodium 140 Potassium 4.4 Chloride 84 L Carbon Dioxide 39 H Anion Gap 21 H BUN 18 H Creatinine 0.77 Estim Creat Clear Calc 91.4 Estimated GFR > 60 POC Glucose Random Glucose 304 H Fasting Glucose Lactic Acid Lactic Acid F/U @ 2Hr Lactic Acid F/U @ 4Hr Calcium 8.6 Phosphorus Magnesium Total Bilirubin 0.5 AST 10 ALT 12 Alkaline Phosphatase 79 Troponin I High Sens B-Natriuretic Peptide Total Protein 7.2 Albumin 4.2 Lipase Hold Yellow Top Ethyl Alcohol COVID-19 (MICHEL) COVID-19 Clin Com 03/24/23 03/25/23 03/25/23 20:12 07:31 11:12 WBC RBC Hgb Hct MCV MCH MCHC RDW Plt Count MPV Immature Gran % (Auto) Neut % (Auto) Lymph % (Auto) Giles % (Auto) Eos % (Auto) Baso % (Auto) Lymph # (Auto) Giles # (Auto) Eos # (Auto) Baso # (Auto) Abs Immat Gran (auto) Absolute Neuts (auto) Absolute Nucleated RBC Nucleated RBC % (auto) Smear Tech's Comments Hold Purple Top SEE NOTE PT INR APTT Hold Blue Top O2 Saturation ABG pH at Pt Temp ABG pCO2 at Pt Temp ABG pO2 at Pt Temp ABG HCO3 ABG Base Excess (Actual) VBG pH VBG pCO2 VBG pO2 VBG HCO3 VBG O2 Saturation VBG Base Excess Sodium Potassium Chloride Carbon Dioxide Anion Gap BUN Creatinine Estim Creat Clear Calc Estimated GFR POC Glucose 444 H* 385 H* Random Glucose Fasting Glucose Lactic Acid Lactic Acid F/U @ 2Hr Lactic Acid F/U @ 4Hr Calcium Phosphorus Magnesium Total Bilirubin AST ALT Alkaline Phosphatase Troponin I High Sens B-Natriuretic Peptide 412 H Total Protein Albumin Lipase Hold Yellow Top See Note Ethyl Alcohol COVID-19 (MICHEL) COVID-19 [email or web address] 03/25/23 03/25/23 03/25/23 11:29 16:05 20:21 WBC RBC Hgb Hct MCV MCH MCHC RDW Plt Count MPV Immature Gran % (Auto) Neut % (Auto) Lymph % (Auto) Giles % (Auto) Eos % (Auto) Baso % (Auto) Lymph # (Auto) Giles # (Auto) Eos # (Auto) Baso # (Auto) Abs Immat Gran (auto) Absolute Neuts (auto) Absolute Nucleated RBC Nucleated RBC % (auto) Smear Tech's Comments Hold Purple Top PT INR APTT Hold Blue Top O2 Saturation ABG pH at Pt Temp ABG pCO2 at Pt Temp ABG pO2 at Pt Temp ABG HCO3 ABG Base Excess (Actual) VBG pH VBG pCO2 VBG pO2 VBG HCO3 VBG O2 Saturation VBG Base Excess Sodium Potassium Chloride Carbon Dioxide Anion Gap BUN Creatinine Estim Creat Clear Calc Estimated GFR POC Glucose 532 H* 542 H* 472 H* Random Glucose Fasting Glucose Lactic Acid Lactic Acid F/U @ 2Hr Lactic Acid F/U @ 4Hr Calcium Phosphorus Magnesium Total Bilirubin AST ALT Alkaline Phosphatase Troponin I High Sens B-Natriuretic Peptide Total Protein Albumin Lipase Hold Yellow Top Ethyl Alcohol COVID-19 (MICHEL) COVID-[employer] 03/26/23 03/26/23 03/26/23 07:21 11:03 12:17 WBC 17.9 H RBC 3.98 L Hgb 10.3 L Hct 35.4 L MCV 88.9 MCH 25.9 L MCHC 29.1 L RDW 15.6 Plt Count 507 H MPV 9.7 Immature Gran % (Auto) 1.3 H Neut % (Auto) 91.2 H Lymph % (Auto) 1.6 L Giles % (Auto) 5.8 Eos % (Auto) 0.0 Baso % (Auto) 0.1 Lymph # (Auto) 0.3 L Giles # (Auto) 1.0 Eos # (Auto) 0.0 Baso # (Auto) 0.0 Abs Immat Gran (auto) 0.24 H Absolute Neuts (auto) 16.3 H Absolute Nucleated RBC 0.060 H Nucleated RBC % (auto) 0.3 H Smear Tech's Comments VERIFIED Hold Purple Top PT INR APTT Hold Blue Top O2 Saturation ABG pH at Pt Temp ABG pCO2 at Pt Temp ABG pO2 at Pt Temp ABG HCO3 ABG Base Excess (Actual) VBG pH VBG pCO2 VBG pO2 VBG HCO3 VBG O2 Saturation VBG Base Excess Sodium 136 Potassium 6.5 H* D Chloride 86 L Carbon Dioxide 35 H Anion Gap 22 H BUN 56 H Creatinine 1.34 Estim Creat Clear Calc 52.4 Estimated GFR 40 POC Glucose 404 H* 413 H* Random Glucose Fasting Glucose 442 H* Lactic Acid Lactic Acid F/U @ 2Hr Lactic Acid F/U @ 4Hr Calcium 9.2 D Phosphorus Magnesium Total Bilirubin 0.5 AST 16 ALT 22 Alkaline Phosphatase 103 Troponin I High Sens B-Natriuretic Peptide 545 H Total Protein 8.3 H Albumin 4.8 Lipase Hold Yellow Top Ethyl Alcohol COVID-19 (MICHEL) [email or web address] 03/26/23 03/26/23 03/26/23 12:25 16:12 19:55 WBC RBC Hgb Hct MCV MCH MCHC RDW Plt Count MPV Immature Gran % (Auto) Neut % (Auto) Lymph % (Auto) Giles % (Auto) Eos % (Auto) Baso % (Auto) Lymph # (Auto) Giles # (Auto) Eos # (Auto) Baso # (Auto) Abs Immat Gran (auto) Absolute Neuts (auto) Absolute Nucleated RBC Nucleated RBC % (auto) Smear Tech's Comments Hold Purple Top PT INR APTT Hold Blue Top O2 Saturation ABG pH at Pt Temp ABG pCO2 at Pt Temp ABG pO2 at Pt Temp ABG HCO3 ABG Base Excess (Actual) VBG pH 7.41 VBG pCO2 72 VBG pO2 89 VBG HCO3 46 H VBG O2 Saturation 99.0 VBG Base Excess 17.5 Sodium Potassium Chloride Carbon Dioxide Anion Gap BUN Creatinine Estim Creat Clear Calc Estimated GFR POC Glucose 324 H 330 H Random Glucose Fasting Glucose Lactic Acid Lactic Acid F/U @ 2Hr Lactic Acid F/U @ 4Hr Calcium Phosphorus Magnesium Total Bilirubin AST ALT Alkaline Phosphatase Troponin I High Sens B-Natriuretic Peptide Total Protein Albumin Lipase Hold Yellow Top Ethyl Alcohol COVID-19 (MICHEL) [employer] 03/27/23 03/27/23 03/27/23 05:38 05:41 06:57 WBC 12.7 H RBC 3.93 L Hgb 10.0 L Hct 34.5 L MCV 87.8 MCH 25.4 L MCHC 29.0 L RDW 15.5 Plt Count 443 H MPV 9.5 Immature Gran % (Auto) 1.2 H Neut % (Auto) 92.4 H Lymph % (Auto) 2.0 L Giles % (Auto) 4.2 Eos % (Auto) 0.1 Baso % (Auto) 0.1 Lymph # (Auto) 0.3 L Giles # (Auto) 0.5 Eos # (Auto) 0.0 Baso # (Auto) 0.0 Abs Immat Gran (auto) 0.15 H Absolute Neuts (auto) 11.8 H Absolute Nucleated RBC 0.020 H Nucleated RBC % (auto) 0.2 Smear Tech's Comments VERIFIED Hold Purple Top PT INR APTT Hold Blue Top O2 Saturation ABG pH at Pt Temp ABG pCO2 at Pt Temp ABG pO2 at Pt Temp ABG HCO3 ABG Base Excess (Actual) VBG pH 7.42 VBG pCO2 68 VBG pO2 93 VBG HCO3 45 H VBG O2 Saturation 99.0 VBG Base Excess 17.2 Sodium 137 Potassium 5.1 D Chloride 90 L Carbon Dioxide 35 H Anion Gap 17 BUN 44 H Creatinine 0.88 Estim Creat Clear Calc 79.9 Estimated GFR > 60 POC Glucose 309 H Random Glucose Fasting Glucose 360 H* Lactic Acid Lactic Acid F/U @ 2Hr Lactic Acid F/U @ 4Hr Calcium 9.5 Phosphorus Magnesium Total Bilirubin 0.5 AST 20 ALT 24 Alkaline Phosphatase 97 Troponin I High Sens B-Natriuretic Peptide Total Protein 7.7 Albumin 4.4 Lipase Hold Yellow Top Ethyl Alcohol COVID-19 (MICHEL) COVID-19 [email or web address] 03/27/23 03/27/23 03/27/23 10:48 14:13 14:16 WBC RBC Hgb Hct MCV MCH MCHC RDW Plt Count MPV Immature Gran % (Auto) Neut % (Auto) Lymph % (Auto) Giles % (Auto) Eos % (Auto) Baso % (Auto) Lymph # (Auto) Giles # (Auto) Eos # (Auto) Baso # (Auto) Abs Immat Gran (auto) Absolute Neuts (auto) Absolute Nucleated RBC Nucleated RBC % (auto) Smear Tech's Comments Hold Purple Top PT INR APTT Hold Blue Top O2 Saturation ABG pH at Pt Temp ABG pCO2 at Pt Temp ABG pO2 at Pt Temp ABG HCO3 ABG Base Excess (Actual) VBG pH 7.58 H VBG pCO2 50 VBG pO2 83 VBG HCO3 48 H VBG O2 Saturation 99.0 VBG Base Excess 23.1 Sodium Potassium Chloride Carbon Dioxide Anion Gap BUN Creatinine Estim Creat Clear Calc Estimated GFR POC Glucose 357 H* Random Glucose Fasting Glucose Lactic Acid Lactic Acid F/U @ 2Hr Lactic Acid F/U @ 4Hr Calcium Phosphorus 3.3 Magnesium 2.5 Total Bilirubin AST ALT Alkaline Phosphatase Troponin I High Sens B-Natriuretic Peptide Total Protein Albumin Lipase Hold Yellow Top Ethyl Alcohol COVID-19 (MICHEL) [email or web address] 03/27/23 03/27/23 03/27/23 16:32 16:34 20:34 WBC RBC Hgb Hct MCV MCH MCHC RDW Plt Count MPV Immature Gran % (Auto) Neut % (Auto) Lymph % (Auto) Giles % (Auto) Eos % (Auto) Baso % (Auto) Lymph # (Auto) Giles # (Auto) Eos # (Auto) Baso # (Auto) Abs Immat Gran (auto) Absolute Neuts (auto) Absolute Nucleated RBC Nucleated RBC % (auto) Smear Tech's Comments Hold Purple Top PT INR APTT Hold Blue Top O2 Saturation ABG pH at Pt Temp ABG pCO2 at Pt Temp ABG pO2 at Pt Temp ABG HCO3 ABG Base Excess (Actual) VBG pH 7.38 VBG pCO2 85 VBG pO2 52 VBG HCO3 50 H VBG O2 Saturation 77.0 VBG Base Excess 21.2 Sodium Potassium Chloride Carbon Dioxide Anion Gap BUN Creatinine Estim Creat Clear Calc Estimated GFR POC Glucose 330 H 307 H Random Glucose Fasting Glucose Lactic Acid Lactic Acid F/U @ 2Hr Lactic Acid F/U @ 4Hr Calcium Phosphorus Magnesium Total Bilirubin AST ALT Alkaline Phosphatase Troponin I High Sens B-Natriuretic Peptide Total Protein Albumin Lipase Hold Yellow Top Ethyl Alcohol COVID-19 (MICHEL) [employer] 03/27/23 03/27/23 03/28/23 23:13 23:17 04:32 WBC 9.5 RBC 3.76 L Hgb 9.7 L Hct 32.0 L MCV 85.1 MCH 25.8 L MCHC 30.3 L RDW 15.5 Plt Count 401 H MPV 9.8 Immature Gran % (Auto) 1.0 H Neut % (Auto) 78.7 H Lymph % (Auto) 8.6 L Giles % (Auto) 11.6 H Eos % (Auto) 0.0 Baso % (Auto) 0.1 Lymph # (Auto) 0.8 L Giles # (Auto) 1.1 Eos # (Auto) 0.0 Baso # (Auto) 0.0 Abs Immat Gran (auto) 0.09 H Absolute Neuts (auto) 7.5 Absolute Nucleated RBC 0.000 Nucleated RBC % (auto) 0.0 Smear Tech's Comments Hold Purple Top PT 14.0 H INR 1.2 H APTT 25.5 L Hold Blue Top O2 Saturation ABG pH at Pt Temp ABG pCO2 at Pt Temp ABG pO2 at Pt Temp ABG HCO3 ABG Base Excess (Actual) VBG pH 7.51 H VBG pCO2 70 VBG pO2 63 VBG HCO3 56 H VBG O2 Saturation 93.0 VBG Base Excess 28.8 Sodium 139 140 Potassium 4.5 4.3 Chloride 88 L 90 L Carbon Dioxide 40 H* 39 H Anion Gap 16 15 BUN 40 H 37 H Creatinine 0.78 0.73 Estim Creat Clear Calc 90.2 96.4 Estimated GFR > 60 > 60 POC Glucose Random Glucose 293 H 204 H Fasting Glucose Lactic Acid Lactic Acid F/U @ 2Hr Lactic Acid F/U @ 4Hr Calcium 10.2 D 10.1 Phosphorus 2.3 L Magnesium 2.4 Total Bilirubin 0.5 0.5 AST 10 11 ALT 20 18 Alkaline Phosphatase 87 83 Troponin I High Sens B-Natriuretic Peptide Total Protein 7.1 6.8 Albumin 4.1 4.0 Lipase Hold Yellow Top Ethyl Alcohol COVID-19 (MICHEL) COVID-19 Clin Com 03/28/23 03/28/23 03/28/23 04:37 07:16 09:37 WBC RBC Hgb Hct MCV MCH MCHC RDW Plt Count MPV Immature Gran % (Auto) Neut % (Auto) Lymph % (Auto) Giles % (Auto) Eos % (Auto) Baso % (Auto) Lymph # (Auto) Giles # (Auto) Eos # (Auto) Baso # (Auto) Abs Immat Gran (auto) Absolute Neuts (auto) Absolute Nucleated RBC Nucleated RBC % (auto) Smear Tech's Comments Hold Purple Top PT INR APTT Hold Blue Top O2 Saturation ABG pH at Pt Temp ABG pCO2 at Pt Temp ABG pO2 at Pt Temp ABG HCO3 ABG Base Excess (Actual) VBG pH 7.50 H 7.51 H VBG pCO2 67 62 VBG pO2 64 99 VBG HCO3 52 H 49 H VBG O2 Saturation 93.0 100.0 VBG Base Excess 25.2 23.0 Sodium Potassium Chloride Carbon Dioxide Anion Gap BUN Creatinine Estim Creat Clear Calc Estimated GFR POC Glucose 168 H Random Glucose Fasting Glucose Lactic Acid Lactic Acid F/U @ 2Hr Lactic Acid F/U @ 4Hr Calcium Phosphorus Magnesium Total Bilirubin AST ALT Alkaline Phosphatase Troponin I High Sens B-Natriuretic Peptide Total Protein Albumin Lipase Hold Yellow Top Ethyl Alcohol COVID-19 (MICHEL) COVID-19 Clin Com
[2023-03-28 11:41] LABS: Glucose, Whole Blood 245 mg/dL (60-115)
--- NOTE | 2023-03-28 12:27 | PM.EVENT ---
Event Note Date of Service: 03/30/23 Event Note: History reviewed 62F with multiple medical problems - morbid obesity with subsequent hypoventilation syndrome, acute on chronic resp failure, with frequent admissions had cholecystectomy in the past, no other previous upper abdominal surgery requiring positive pressure ventilation so tracheostomy recommended she is expected to require positive pressure ventilation frequently after tracheostomy so a PEG tube was recommended by the garment mender in view of anticipated poor oral intake I had discussed the above procedures with the patient and her extensively I explained the technique of each procedure I reviewed the risks incl. but not limited to bleeding, infections, loss of airway, injury to other organs including bowel, tube dislodgement she has given consent her was involved with the discussion Dr. Willams will be doing trache placement Chest CT done last Apr 2022 reviewed - good window for PEG tube placement on anterior stomach wall, altought with note of very thick subcutaneous fat Time Spent With Patient Time: Total time managing care of this patient today ____ minutes.
--- NOTE | 2023-03-28 15:31 | P.OP_ITS ---
Operative Note Operative Note Date of Service: 03/28/23 Narrative: Preoperative diagnosis: [] Chronic respiratory difficulty, continuous BiPAP Postop diagnosis: [] Anders Procedure [] tracheostomy placement Surgeon: [] Imer Chief Sustainability Officer: [] Kulwant Gayle Type of Anesthesia: [] General Indication for surgery: [] Patient required an extra long 7 Gabonese tracheostomy tube because of profound morbid obesity Findings: [] Patient is brought to the operating room, placed on operative table in a supine position, after an adequate level of general endotracheal anesthesia was induced, the patient's neck and upper chest area were prepped and draped in usual sterile fashion. Patient is profoundly corpulent. A transverse incision was made approximately 1 fingerbreadth above the sternal notch and carried down through skin, subcutaneous tissue, cervical fascia. Linea cervicalis was entered and strap muscles were retracted laterally. Isthmus of thyroid was clamped , transected and ligated with 0 Vicryl. Trachea was identified and proximally between the 2nd and 3rd tracheal rings, a transverse tracheotomy was made and in conjunction with anesthesia withdrawing the ET tube, initially a regular length 7 Gabonese tracheostomy tube was placed. Because of the profound neck thickness, this was converted to an extra long 7 Gabonese trach. This was connected to anesthesia circuit with end-tidal CO2 and O2 saturations maintained. Wound was irrigated, secured hemostasis. We closed the following manner; interrupted inverted dermal 3-0 Vicryl sutures were initially placed. Tracheostomy was secured to the skin using 2-0 silk sutures followed by a Velcro strap. Sponge, needle, and instrument counts reported correct. Patient tolerated the procedure well and then was being prepared for the 2nd part of the procedure which was PEG tube placement. Please refer to Dr. Gayle's dictation regarding this. EBL minimal
--- NOTE | 2023-03-28 15:34 | MHC.CM.PN ---
Pt continues care in ICU: going to OR today for peg/trach placement. Referred to [facility] for post hospital care. Clinical updates remitted. CM to follow
--- NOTE | 2023-03-28 15:39 | P.OP_ITS ---
Operative Note Operative Note Date of Service: 03/28/23 Narrative: Preop diagnosis: Acute on chronic respiratory failure, requiring tracheostomy tube placement Postop diagnosis: The same Procedure: PEG tube placement Surgeon: Geovanni Gayle MD case assistant: CHANTALE Blum Tthe patient is a 62 year female referred for PEG tube placement. This was requested by the naphthalene still operator in view of the anticipated long-term persistent need for positive pressure ventilation with a tracheostomy tube in place. Because of this, this expected the patient will not have good oral intake I reviewed with the patient and her the technique of PEG tube placement. They understood the risks, benefits, and alternatives and she had given consent . The tracheostomy tube placement was completed. The patient was then placed in reverse Trendelenburg position. The bite block was in position. The endoscope then passed through the bite block into the oropharynx. The vocal cords were visualized. The esophageal slit was seen posterior to this. The esophageal slit was gently intubated and the scope was advanced through the entire length of the esophagus into the stomach. The stomach was insufflated. I could see easily the indentation on the anterior stomach wall with pressure on the abdominal wall on the left upper quadrant just below the ribs using a finger. Also, with the room lights dimmed, we were able to actually see transillumination in the same area. This area was therefore prepped and draped. Lidocaine 1% was used for local anesthesia. we could easily see the needle tip was advanced into the stomach lumen. A short stab incision was made using a blade 11. The large-bore needle was inserted all the way to the stomach lumen. The guidewire was threaded through this needle. The large-bore needle was removed. I then removed the needle. The guidewire was grasped with a snare. We pulled this out all the way into the oral cavity along with the scope. I then looped the feeding tube into this guidewire. We pulled the guidewire out through the abdominal wall, dragging the feeding tube with this until this felt snug on the anterior stomach wall. I then reinserted the scope all the way to the stomach. I was able to see the internal bolster well. This appeared to be in good position. Photographic documentation of this was done. The scope was then removed completely. The PEG tube was secured to the abdominal wall. The procedure was then completed. The patient tolerated the procedure well. The patient has was then transferred back back to the ICU with stable vital signs.
[2023-03-28 16:35] LABS: Glucose, Whole Blood 302 mg/dL (60-115)
[2023-03-28] MEDS: dexmedeTOMIDidine HCL/NS 400 MCG/100 ML INFUS..BTL 36.75 MCG IVCONT ×2 (16:36→18:41)
[2023-03-28] MEDS: fentaNYL citrate/PF 100 MCG/2 ML VIAL 50 MCG IVPUSH (16:54)
--- NOTE | 2023-03-28 17:06 | PC.RT ---
Pt airway noted to be positional. noted leak observed, inc cuff pressure needed for seal and ensuring volumes. RN,MD aware.
[2023-03-28 18:36] LABS: VBG Base Excess 22.3 mmol/L; VBG HCO3 49 mmol/L (22-26); VBG pCO2 66 mmHg; VBG pH 7.48 (7.32-7.43); VBG pO2 43 mmHg
[2023-03-28 20:30] LABS: Glucose, Whole Blood 303 mg/dL (60-115)
[2023-03-28 20:55] LABS: Venous Blood Gas Refer to POC result
[2023-03-28] MEDS: Insulin Glargine,Hum.rec.anlog 100 UNIT/ML 10 ML VIAL 30 UNIT SUBCUT (20:58)
[2023-03-28] MEDS: dexmedeTOMIDidine HCL/NS 400 MCG/100 ML INFUS..BTL 29.4 MCG IVCONT (21:30)
[2023-03-28] MEDS: dilTIAZem HCL 125 MG in 0.9 % Sodium Chloride 100 ML 10 MG IVCONT (22:15)
[2023-03-29] VITALS (35 sets, daily range): BP systolic 117–166; BP diastolic 78–96; PULSE 76–115; RESP 13–48; TEMP 35–39; O2SAT 87–96; BMI 64.5
[2023-03-29] MEDS: 0.9 % Sodium Chloride Flush 3 ML SYRINGE IVFLUSH ×3 (00:36→16:46)
[2023-03-29] MEDS: dexmedeTOMIDidine HCL/NS 400 MCG/100 ML INFUS..BTL 29.4 MCG IVCONT ×3 (00:36→06:14)
[2023-03-29] MEDS: fentaNYL citrate/PF 100 MCG/2 ML VIAL 50 MCG IVPUSH ×2 (03:12→03:52)
[2023-03-29 03:39] LABS: ABG Base Excess 22.9 mmol/L; ABG HCO3 50 mmol/L (22-26); ABG pCO2 68 mmHg (32-45); ABG pH 7.48 (7.35-7.45); ABG pO2 64 mmHg (83-108)
[2023-03-29] MEDS: Ketorolac Tromethamine 15 MG/ML VIAL IVPUSH (04:23)
[2023-03-29 04:59] LABS: MANUAL DIFF FLAG NO
[2023-03-29 05:00] LABS: Basophils Percent Auto 0.1 % (0-2); Eosinophils Percent Auto 0.1 % (0-4); Hematocrit 37.5 % (37.0-47.0); Hemoglobin 11.6 g/dl (12.0-16.0); Imm Gran Abs Auto 0.08 X10*3/uL (0.00-0.03); Imm Gran Pct Auto 0.5 % (0.0-0.4); Lymphocytes Absolute Auto 1.5 X10*3/uL (1.2-4.9); Lymphocytes Percent Auto 9.9 % (20-40); Mean Corpuscular HGB Conc 30.9 g/dl (31.0-35.0); Mean Corpuscular Hemoglobin 25.4 pg (27.0-33.0); Mean Corpuscular Volume 82.1 fL (80.0-98.0); Mean Platelet Volume 9.6 fL (9.4-12.3); Monocytes Absolute Auto 1.3 X10*3/uL (0.1-1.2); Monocytes Percent Auto 8.9 % (2-11); Neutrophils Absolute Auto 11.9 x10*3/uL (2.0-8.3); Neutrophils Percent Auto 80.5 % (45-73); Platelet Count 398 X10*3/uL (160-400); Red Blood Count 4.57 X10*6/uL (4.20-5.50); Red Cell Distribution Width 15.2 % (11.0-16.0); White Blood Count 14.8 X10*3/uL (4.8-10.8)
[2023-03-29 05:17] LABS: Alanine Aminotransferase 17 U/L (0-31); Albumin Level 4.2 g/dL (3.5-5.0); Alkaline Phosphatase 95 U/L (39-117); Anion Gap 21 (12-20); Aspartate Amino Transferase 11 U/L (5-31); Bilirubin Total 0.9 mg/dL (0.0-1.0); Blood Urea Nitrogen 36 mg/dL (9-16); Calcium 9.9 mg/dL (8.4-10.2); Carbon Dioxide 33 mmol/L (22-29); Chloride 90 mmol/L (96-108); Creatinine Clr Calc Pharmacy 96.5; Estimated Glomerular Filt Rate > 60; Glucose Random 260 mg/dL (60-115); Potassium 3.8 mmol/L (3.3-5.1); Sodium 140 mmol/L (135-145); Total Protein 7.3 g/dL (6.5-8.0)
--- NOTE | 2023-03-29 05:38 | PC.NURSE ---
Assumed care of pt at 1900. S/P tracheostomy on AC vent settings. No resp distress on FiO2 50%. O2 sats 90-04%. Respirations easy and regular at 16-20/min. MV 4.8-5.3. Positive air leak noted. Resp therapy and provoder aware of leak. Trach very positional. At approx 0300, pt started to have low TV and MV and resp was called. Pt repositioned to minimize air leak with no success. Volumes continued low. Provider summoned to bedside. Resp rate up to 30's-40's/min. Pt received 2 doses of fentanyl 50 mg IVP with improvement of resp rate. Damián ALEJANDRE at bedside and ordered ABG and pCXR which were both done and reviewed by him. UDN given by resp therapy. Volumes improved with these interventions. [employer] contacted Dr Culp who contacted the surgeon Dr Willams. He is coming in to evaluate need for changing out the trach tube. Concern made for availability of trach tubes but we have Size 8 and 9 of the Badger hyperflex trachs at bedside. Moderate amount of bloody drainage from stoma noted at the beginning of the shift but has slowed down significantly now. Monitor show afib rate 80's-90's. Cardizem drip infusing at 10 mg/hr. U/O has been 100-350 ml/hr. BP is stable to high. Temp went up to 101.5. Provider aware and IV Torodol was given. Temp remains over 101. Provider does not want the pt to be moved until tracheostomy is changed/stable.
[2023-03-29 07:02] LABS: ABG Refer to POC result
[2023-03-29 07:28] LABS: Glucose, Whole Blood 241 mg/dL (60-115)
--- NOTE | 2023-03-29 07:45 | PM.CCPN ---
Subjective Subjective Date of Service: 03/29/23 Interval History: s/p trach/PEG; intermittent low tidal volumes post-op; to perform trach exchange from 7, 110 mm to 8, 130 mm in OR today Critical Care Time (minutes): 90 Physical Exam Vital Signs: Vital Signs: Last Vital Signs Temp 101.8 F H 03/29/23 07:00 Pulse 91 03/29/23 07:00 Resp 15 03/29/23 07:00 BP 149/96 H 03/29/23 07:00 Pulse Ox 93 03/29/23 07:00 O2 Del Method Mechanical Ventil ation 03/29/23 07:00 O2 Flow Rate 50 03/26/23 18:53 FiO2 50 03/29/23 07:39 BMI result Body Mass Index 64.5 Const: Other: morbidly obese General: cooperative and no acute distress HEENT: Other: trachestomy in place; bandage with some dried blood Head: Yes normal to inspection, Yes normocephalic and Yes atraumatic Eyes: General: appearance normal, both eyes and all related structures Neck: Neck: Yes normal visual inspection and Yes supple Chest: Chest palpation & inspection: normal inspection of the chest Resp: Other: appreciable upper airway sounds; decreased breath sounds throughout Cardio: Rhythm: abnormal rhythm GI: Inspection: Yes normal to inspection, No Abdominal wall edema and No distended Palpation (GI): Soft to palpation, not firm, nontender, no guarding and not rigid Skin: General skin exam: no rashes or lesions noted Neuro: General: moves all extremities and no focal motor deficits Extrem: Other: diffuse non-pitting edema Psych: Appearance: grossly normal Objective Data Labs 03/29/23 04:48 03/29/23 04:48 Labs: Laboratory Results - last 24 hr 03/28/23 03/28/23 03/28/23 09:37 11:37 16:31 WBC RBC Hgb Hct MCV MCH MCHC RDW Plt Count MPV Immature Gran % (Auto) Neut % (Auto) Lymph % (Auto) [place] % (Auto) Eos % (Auto) Baso % (Auto) Lymph # (Auto) [place] # (Auto) Eos # (Auto) Baso # (Auto) Abs Immat Gran (auto) Absolute Neuts (auto) Absolute Nucleated RBC Nucleated RBC % (auto) O2 Saturation ABG pH at Pt Temp ABG pCO2 at Pt Temp ABG pO2 at Pt Temp ABG HCO3 ABG Base Excess (Actual) VBG pH 7.51 H VBG pCO2 62 VBG pO2 99 VBG HCO3 49 H VBG O2 Saturation 100.0 VBG Base Excess 23.0 Sodium Potassium Chloride Carbon Dioxide Anion Gap BUN Creatinine Estim Creat Clear Calc Estimated GFR POC Glucose 245 H 302 H Random Glucose Calcium Total Bilirubin AST ALT Alkaline Phosphatase Total Protein Albumin Blood Type Antibody Screen 03/28/23 03/28/23 03/28/23 18:31 18:32 20:27 WBC RBC Hgb Hct MCV MCH MCHC RDW Plt Count MPV Immature Gran % (Auto) Neut % (Auto) Lymph % (Auto) [place] % (Auto) Eos % (Auto) Baso % (Auto) Lymph # (Auto) [place] # (Auto) Eos # (Auto) Baso # (Auto) Abs Immat Gran (auto) Absolute Neuts (auto) Absolute Nucleated RBC Nucleated RBC % (auto) O2 Saturation ABG pH at Pt Temp ABG pCO2 at Pt Temp ABG pO2 at Pt Temp ABG HCO3 ABG Base Excess (Actual) VBG pH 7.48 H VBG pCO2 66 VBG pO2 43 VBG HCO3 49 H VBG O2 Saturation 72.0 VBG Base Excess 22.3 Sodium Potassium Chloride Carbon Dioxide Anion Gap BUN Creatinine Estim Creat Clear Calc Estimated GFR POC Glucose 303 H Random Glucose Calcium Total Bilirubin AST ALT Alkaline Phosphatase Total Protein Albumin Blood Type O Positive Antibody Screen NEGATIVE 03/29/23 03/29/23 03/29/23 03:32 04:48 07:22 WBC 14.8 H RBC 4.57 D Hgb 11.6 L Hct 37.5 MCV 82.1 MCH 25.4 L MCHC 30.9 L RDW 15.2 Plt Count 398 MPV 9.6 Immature Gran % (Auto) 0.5 H Neut % (Auto) 80.5 H Lymph % (Auto) 9.9 L [place] % (Auto) 8.9 Eos % (Auto) 0.1 Baso % (Auto) 0.1 Lymph # (Auto) 1.5 [place] # (Auto) 1.3 H Eos # (Auto) 0.0 Baso # (Auto) 0.0 Abs Immat Gran (auto) 0.08 H Absolute Neuts (auto) 11.9 H Absolute Nucleated RBC 0.000 Nucleated RBC % (auto) 0.0 O2 Saturation 91.0 ABG pH at Pt Temp 7.48 H ABG pCO2 at Pt Temp 68 H* ABG pO2 at Pt Temp 64 L ABG HCO3 50 H ABG Base Excess (Actual) 22.9 VBG pH VBG pCO2 VBG pO2 VBG HCO3 VBG O2 Saturation VBG Base Excess Sodium 140 Potassium 3.8 Chloride 90 L Carbon Dioxide 33 H Anion Gap 21 H BUN 36 H Creatinine 0.81 Estim Creat Clear Calc 96.5 Estimated GFR > 60 POC Glucose 241 H Random Glucose 260 H Calcium 9.9 Total Bilirubin 0.9 AST 11 ALT 17 Alkaline Phosphatase 95 Total Protein 7.3 Albumin 4.2 Blood Type Antibody Screen Microbiology Microbiology Results: Microbiology 03/23/23 09:03 Blood - Venous Blood Culture - Final No growth after 5 days. 03/23/23 08:45 Blood - Venous Blood Culture - Final No growth after 5 days. Progress Note: A&P Assessment and plan (1) Acute on chronic respiratory failure with hypoxia and hypercapnia: Status: Acute (2) Acute on chronic heart failure with preserved ejection fraction (HFpEF): Status: Acute (3) COPD (chronic obstructive pulmonary disease): Status: Acute (4) TAURUS (obstructive sleep apnea): Status: Acute (5) Atrial fibrillation with RVR: Status: Acute Plan Assessment: Patient is a 62 Y F with morbid obesity, c/b OHS, TAURUS, COPD, CHF, c/b acute on chronic mixed respiratory failure, well-known to our institution, presenting with acute on chronic respiratory failure on 03/23, admitted floor, underwent empiric treatment for COPD, CHF exacerbations, though necessitating near constant AVAPS, likely representing end-stage lung disease Plan: N: dexmedetomidine gtt to tolerate new tracheostomy; wean as tolerated CV: CHF, to continue diuresis; atrial fibrillation; to hold anticoagulation for trach exchange today; to achieve reasonable rate control less than 110 R: acute on chronic mixed respiratory failure d/t multiple comorbidities; s/p trach; to exchange trach GI: s/p PEG; NPO; to consider tube feeds after trach exchange : no acute issues; to monitor electrolytes closely in setting of diuresis H: to hold anticoagulation for trach exchange ID: leukocytosis, though no current stigmata of infection, improved; to continue to monitor; may-operative cefazolin E: diabetes mellitus; insulin regimen Quality Stroke Does the patient have a stroke diagnosis?: No VTE Prior VTE?: No VTE Risk Level:: Medical - moderate - high VTE Device Contraindication: Treatment Not Indicated VTE Drug Contraindication: Treatment Not Tolerated
--- NOTE | 2023-03-29 07:54 | P.PNGS_ITS ---
Subjective Subjective Date of Service: 03/29/23 Interval history: Trach very positional, leaking and requiring high cuff pressures. Physical Exam 2 Vital Signs: Vital Signs: Last Vital Signs Temp 101.8 F H 03/29/23 07:00 Pulse 91 03/29/23 07:00 Resp 15 03/29/23 07:00 BP 149/96 H 03/29/23 07:00 Pulse Ox 93 03/29/23 07:00 O2 Del Method Mechanical Ventil ation 03/29/23 07:00 O2 Flow Rate 50 03/26/23 18:53 FiO2 50 03/29/23 07:39 BMI result Body Mass Index 64.5 Const: Other: sedated Nutritional Appearance: obese Neck: Other: trach in place, site clean, some sanguineous drainage GI: Other: PEG tube in place, abdomen soft Inspection: No distended Skin: General skin exam: no rashes or lesions noted Objective Data Active Medications Albuterol Sulfate (Albuterol Sulfate (0.083%) 2.5 Mg/3 Ml Vial.Neb) 2.5 mg INHALE RQ4H WHILE AWAKE [facility] Last Admin: 03/28/23 20:36 Dose: 2.5 mg Documented By: JAQUELINE Bumetanide (Bumetanide 1 Mg/4 Ml Vial) 2 mg IVPUSH BID@0900,1700 [facility]; Protocol Last Admin: 03/28/23 16:45 Dose: 2 mg Documented By: WAYLON Dextrose (Dextrose 50 % 25 Gm/50 Ml Syringe) 25 gm IVPUSH Q15M PRN; Protocol PRN Reason: per Hypoglycemia Standing Ord. Glucose (Glucose Gel 15 Gm Gel..Gram.) 15 gm PO Q15M PRN; Protocol PRN Reason: per Hypoglycemia Standing Ord. Diltiazem HCl 125 mg/ Sodium (Chloride) 125 mls @ 0 mls/hr IVCONT .Q0M [facility]; Protocol Last Admin: 03/28/23 22:15 Dose: 10 mg/hr, 10 mls/hr Documented By: ADELA Dexmedetomidine HCl (Precedex) 400 mcg in 100 mls @ 0 mls/hr IVCONT .Q0M [facility]; Protocol Last Titration: 03/29/23 06:15 Dose: 1 mcg/kg/hr, 36.75 mls/hr Documented By: ADELA Insulin Glargine (Insulin Glargine,Hum.Rec.Anlog 100 Unit/Ml 10 Ml Vial) 35 unit SUBCUT BEDTIME [facility] Insulin Human Lispro (Insulin Lispro 100 Unit/Ml 3 Ml Vial) 0 unit SUBCUT QIDACHS [facility]; Protocol Last Admin: 03/28/23 20:56 Dose: 6 unit Documented By: ADELA Comments: POC 303 Methylprednisolone Sodium Succinate (Methylprednisolone Sod Succ 40 Mg/Ml Vial) 40 mg IVPUSH DAILY [facility] Last Admin: 03/28/23 07:42 Dose: 40 mg Documented By: WAYLON Sodium Chloride (0.9 % Sodium Chloride Flush 3 Ml Syringe) 3 ml IVFLUSH QSHIFT [facility] Last Admin: 03/29/23 00:36 Dose: 3 ml Documented By: ADELA Labs 03/29/23 04:48 03/29/23 04:48 Labs: Laboratory Results - last 24 hr 03/28/23 03/28/23 03/28/23 09:37 11:37 16:31 MCV MCH MCHC RDW Plt Count MPV Immature Gran % (Auto) Neut % (Auto) Lymph % (Auto) [place] % (Auto) Eos % (Auto) Baso % (Auto) Lymph # (Auto) [place] # (Auto) Eos # (Auto) Baso # (Auto) Abs Immat Gran (auto) Absolute Neuts (auto) Absolute Nucleated RBC Nucleated RBC % (auto) O2 Saturation ABG pH at Pt Temp ABG pCO2 at Pt Temp ABG pO2 at Pt Temp ABG HCO3 ABG Base Excess (Actual) VBG pH 7.51 H VBG pCO2 62 VBG pO2 99 VBG HCO3 49 H VBG O2 Saturation 100.0 VBG Base Excess 23.0 Anion Gap Estim Creat Clear Calc Estimated GFR POC Glucose 245 H 302 H Random Glucose Calcium Total Bilirubin AST ALT Alkaline Phosphatase Total Protein Albumin Blood Type Antibody Screen 03/28/23 03/28/23 03/28/23 18:31 18:32 20:27 MCV MCH MCHC RDW Plt Count MPV Immature Gran % (Auto) Neut % (Auto) Lymph % (Auto) [place] % (Auto) Eos % (Auto) Baso % (Auto) Lymph # (Auto) [place] # (Auto) Eos # (Auto) Baso # (Auto) Abs Immat Gran (auto) Absolute Neuts (auto) Absolute Nucleated RBC Nucleated RBC % (auto) O2 Saturation ABG pH at Pt Temp ABG pCO2 at Pt Temp ABG pO2 at Pt Temp ABG HCO3 ABG Base Excess (Actual) VBG pH 7.48 H VBG pCO2 66 VBG pO2 43 VBG HCO3 49 H VBG O2 Saturation 72.0 VBG Base Excess 22.3 Anion Gap Estim Creat Clear Calc Estimated GFR POC Glucose 303 H Random Glucose Calcium Total Bilirubin AST ALT Alkaline Phosphatase Total Protein Albumin Blood Type O Positive Antibody Screen NEGATIVE 03/29/23 03/29/23 03/29/23 03:32 04:48 07:22 MCV 82.1 MCH 25.4 L MCHC 30.9 L RDW 15.2 Plt Count 398 MPV 9.6 Immature Gran % (Auto) 0.5 H Neut % (Auto) 80.5 H Lymph % (Auto) 9.9 L [place] % (Auto) 8.9 Eos % (Auto) 0.1 Baso % (Auto) 0.1 Lymph # (Auto) 1.5 [place] # (Auto) 1.3 H Eos # (Auto) 0.0 Baso # (Auto) 0.0 Abs Immat Gran (auto) 0.08 H Absolute Neuts (auto) 11.9 H Absolute Nucleated RBC 0.000 Nucleated RBC % (auto) 0.0 O2 Saturation 91.0 ABG pH at Pt Temp 7.48 H ABG pCO2 at Pt Temp 68 H* ABG pO2 at Pt Temp 64 L ABG HCO3 50 H ABG Base Excess (Actual) 22.9 VBG pH VBG pCO2 VBG pO2 VBG HCO3 VBG O2 Saturation VBG Base Excess Anion Gap 21 H Estim Creat Clear Calc 96.5 Estimated GFR > 60 POC Glucose 241 H Random Glucose 260 H Calcium 9.9 Total Bilirubin 0.9 AST 11 ALT 17 Alkaline Phosphatase 95 Total Protein 7.3 Albumin 4.2 Blood Type Antibody Screen Microbiology Microbiology Results: Microbiology 03/23/23 09:03 Blood Culture - Final Blood - Venous No growth after 5 days. 03/23/23 08:45 Blood Culture - Final Blood - Venous No growth after 5 days. Procedures Date of Service Date of Service: 03/29/23 Progress Note: A&P Assessment and plan (1) Acute on chronic respiratory failure with hypoxia and hypercapnia: Status: Acute (2) Status post tracheostomy: Status: Acute (3) S/P percutaneous endoscopic gastrostomy (PEG) tube placement: Status: Acute Plan POD #1 s/p trach placement and PEG tube. Trach is very positional and leaking- discussed with hooker laster exchanging the trach for a larger, longer trach. Will do in the OR today. PEG tube in place- can begin feeds following trach exchange. Time Spent With Patient Time: Total time managing care of this patient today ____ minutes. Quality Stroke Does the patient have a stroke diagnosis?: No VTE Prior VTE?: No VTE Risk Level:: Medical - moderate - high VTE Device Contraindication: Treatment Not Indicated VTE Drug Contraindication: Treatment Not Tolerated
[2023-03-29] MEDS: methylPREDNISolone Sod Succ 40 MG/ML VIAL IVPUSH (08:06)
[2023-03-29] MEDS: Insulin Lispro 100 UNIT/ML 3 ML VIAL SUBCUT ×4 (08:06→21:26)
[2023-03-29] MEDS: Bumetanide 1 MG/4 ML VIAL 2 MG IVPUSH ×2 (08:06→16:45)
[2023-03-29 08:16] LABS: Magnesium 2.3 mg/dL (1.6-2.6); Phosphorus 3.2 mg/dL (2.7-4.5)
[2023-03-29] MEDS: Albuterol Sulfate (0.083%) 2.5 MG/3 ML VIAL.NEB INHALE ×4 (08:45→20:01)
[2023-03-29] MEDS: dexmedeTOMIDidine HCL/NS 400 MCG/100 ML INFUS..BTL 36.75 MCG IVCONT ×6 (08:56→23:06)
--- NOTE | 2023-03-29 09:35 | PC.RT ---
Pt taken to OR for tracheostomy replacement sec to constant air leak. Pt spo2 93%. hr 68, rr 22 and Ve note > 4.5, the pt is in no distress. A #8.0 hyperflex TTS bivona trach tube with an adjustable flange was selected by Dr. Willams. It was passed to Dr. Mercado and the OR team that a TTS is recommended be filled with sterile water to seal the airway, It was demonstrated to same the adjustable mechanism for setting the depth on the aformentioned trach tube so they are familiar with the mechanics.
--- NOTE | 2023-03-29 09:40 | MHC.CLN ---
PT WITH NEW TRACH AND PEG PLACED CURRENTLY NPO WHEN TF NEEDED; RECOMMEND JEVITY 1.0 AT MAX GOAL RATE 40ML/HR WITH 120ML FREE WATER FLUSHES Q 6 HRS TO PROVIDE 1017KCALS (25KCALS/KG BASED ON IBW), 42G PROTEIN (1.02G/KG), 1282ML TOTAL WATER FROM FORMULA AND FLUSHES (31ML/KG) START TF AT 20ML/HR AND INCREASE BY 10ML Q 4 HRS UNTIL MAX GOAL IS ACHIEVED MONITOR TOLERANCE, RESIDUALS AND LYTES SEE ALSO FULL CLINICAL NUTRITION ASSESSMENT
--- NOTE | 2023-03-29 10:30 | W.PM.OPN ---
Operative Note Operative Note Date of Service: 03/29/23 Narrative: Preoperative diagnosis: [] Larger longer tracheostomy tube requirement Postop diagnosis: [] Same Procedure [] tracheostomy tube exchange, bronchoscopy Surgeon: [] Imer Ballpoint Pens Assembler: [] Kulwant Type of Anesthesia: [] General Indication for surgery: [] Patient is a profoundly morbidly obese patient who underwent tracheostomy tube placement yesterday with a 7 [place] long tracheostomy tube. Because of difficulty maintaining O2 saturations because of air leak and being very positional, it was decided to exchange a tracheostomy for a larger longer tube. Intraoperatively, the current 8 [place] long tube was adjusted and positioned via bronchoscopic guidance just above the fernando. Findings: [] Patient brought to the operating room, placed on operative table supine position, after adequate level of general anesthesia was induced, bronchoscopy was performed through the 8 tracheostomy tube was demonstrated the current tube positioning just above the feranndo. No evidence of any intimal tears. Over a red rubber catheter, the original tracheostomy tube was removed and using Seldinger technique, over the red rubber catheter, the new 8 [place] adjustable length extra long tube was uneventfully advanced into the trachea. Using bronchoscopic guidance, the length was adjusted to be just above the fernando. Tracheostomy tube was secured the skin using 2-0 silk sutures as well as velcro tape. All things considered, patient tolerated procedure well. Sponge, needle, instrument counts reported correct. Patient was transferred directly to the ICU for continued restorative measures. Postprocedure chest x-ray in ICU is pending. EBL minimal
--- NOTE | 2023-03-29 10:45 | PM.CCPN ---
Subjective Subjective Interval History: This is a 62-year-old female with past medical history of heart failure with preserved ejection fraction, atrial fibrillation, hypoventilation syndrome with hypercarbia, obesity, obstructive sleep apnea, chronic cor pulmonale presenting to the intensive care unit for increased respiratory requirements. The patient was admitted for daytime BiPAP requirements. The patient was escalated to intensive care due to decreased SpO2 with increased daytime BiPAP settings. Due to the chronic nature of the respiratory issues and ongoing respiratory requirement escalation, it was discussed with the on 03/27 who is the proxy that the patient receive a tracheostomy and percutaneous endoscopic gastrostomy tube. There was successful placement of the tracheostomy and peg tube on 03/28 however due to inadequate ventilatory volumes, the patient is scheduled for today 03/29 to be taken to the OR for tracheostomy revision. Comment: 45 Physical Exam Vital Signs: Vital Signs: Last Vital Signs Temp 102.2 F H 03/29/23 09:00 Pulse 107 H 03/29/23 09:00 Resp 15 03/29/23 09:00 BP 145/85 H 03/29/23 09:00 Pulse Ox 90 L 03/29/23 09:00 O2 Del Method Mechanical Ventil ation 03/29/23 09:00 O2 Flow Rate 50 03/26/23 18:53 FiO2 50 03/29/23 09:00 BMI result Body Mass Index 64.5 Const: General: lethargic Orientation/consciousness: lethargic HEENT: Head: Yes normocephalic Mouth: moist mucous membranes Throat: Yes uvula midline Eyes: Conjunctivae: conjunctivae normal Sclerae: sclerae normal Pupils: Equal, round and reactive pupils present EOM: EOMs intact bilaterally Neck: Other: difficult to assess jvd d/t habitus Resp: Other: fine bibasilar rales, has trach and is vented Effort & Inspection: abnormal respiratory pattern and tachypneic Cardio: Other: s1,s2 intact, a fib, no murmurs rubs or gallops, pmi nondisplaced GI: Other: upper abdominal dressing in place with g-tube Inspection: Yes Abdominal panniculus present Auscultation: Hypoactive bowel sounds present Skin: General skin exam: no rashes or lesions noted Neuro: Other: pt intubated and sedated Cranial nerves: Yes Equal, round and reactive pupils present Extrem: General: Yes no clubbing, cyanosis or edema Objective Data Labs 03/29/23 04:48 03/29/23 04:48 Labs: Laboratory Results - last 24 hr 03/28/23 03/28/23 03/28/23 11:37 16:31 18:31 WBC RBC Hgb Hct MCV MCH MCHC RDW Plt Count MPV Immature Gran % (Auto) Neut % (Auto) Lymph % (Auto) [place] % (Auto) Eos % (Auto) Baso % (Auto) Lymph # (Auto) [place] # (Auto) Eos # (Auto) Baso # (Auto) Abs Immat Gran (auto) Absolute Neuts (auto) Absolute Nucleated RBC Nucleated RBC % (auto) O2 Saturation ABG pH at Pt Temp ABG pCO2 at Pt Temp ABG pO2 at Pt Temp ABG HCO3 ABG Base Excess (Actual) VBG pH 7.48 H VBG pCO2 66 VBG pO2 43 VBG HCO3 49 H VBG O2 Saturation 72.0 VBG Base Excess 22.3 Sodium Potassium Chloride Carbon Dioxide Anion Gap BUN Creatinine Estim Creat Clear Calc Estimated GFR POC Glucose 245 H 302 H Random Glucose Calcium Phosphorus Magnesium Total Bilirubin AST ALT Alkaline Phosphatase Total Protein Albumin Blood Type Antibody Screen 03/28/23 03/28/23 03/29/23 18:32 20:27 03:32 WBC RBC Hgb Hct MCV MCH MCHC RDW Plt Count MPV Immature Gran % (Auto) Neut % (Auto) Lymph % (Auto) [place] % (Auto) Eos % (Auto) Baso % (Auto) Lymph # (Auto) [place] # (Auto) Eos # (Auto) Baso # (Auto) Abs Immat Gran (auto) Absolute Neuts (auto) Absolute Nucleated RBC Nucleated RBC % (auto) O2 Saturation 91.0 ABG pH at Pt Temp 7.48 H ABG pCO2 at Pt Temp 68 H* ABG pO2 at Pt Temp 64 L ABG HCO3 50 H ABG Base Excess (Actual) 22.9 VBG pH VBG pCO2 VBG pO2 VBG HCO3 VBG O2 Saturation VBG Base Excess Sodium Potassium Chloride Carbon Dioxide Anion Gap BUN Creatinine Estim Creat Clear Calc Estimated GFR POC Glucose 303 H Random Glucose Calcium Phosphorus Magnesium Total Bilirubin AST ALT Alkaline Phosphatase Total Protein Albumin Blood Type O Positive Antibody Screen NEGATIVE 03/29/23 03/29/23 04:48 07:22 WBC 14.8 H RBC 4.57 D Hgb 11.6 L Hct 37.5 MCV 82.1 MCH 25.4 L MCHC 30.9 L RDW 15.2 Plt Count 398 MPV 9.6 Immature Gran % (Auto) 0.5 H Neut % (Auto) 80.5 H Lymph % (Auto) 9.9 L [place] % (Auto) 8.9 Eos % (Auto) 0.1 Baso % (Auto) 0.1 Lymph # (Auto) 1.5 [place] # (Auto) 1.3 H Eos # (Auto) 0.0 Baso # (Auto) 0.0 Abs Immat Gran (auto) 0.08 H Absolute Neuts (auto) 11.9 H Absolute Nucleated RBC 0.000 Nucleated RBC % (auto) 0.0 O2 Saturation ABG pH at Pt Temp ABG pCO2 at Pt Temp ABG pO2 at Pt Temp ABG HCO3 ABG Base Excess (Actual) VBG pH VBG pCO2 VBG pO2 VBG HCO3 VBG O2 Saturation VBG Base Excess Sodium 140 Potassium 3.8 Chloride 90 L Carbon Dioxide 33 H Anion Gap 21 H BUN 36 H Creatinine 0.81 Estim Creat Clear Calc 96.5 Estimated GFR > 60 POC Glucose 241 H Random Glucose 260 H Calcium 9.9 Phosphorus 3.2 Magnesium 2.3 Total Bilirubin 0.9 AST 11 ALT 17 Alkaline Phosphatase 95 Total Protein 7.3 Albumin 4.2 Blood Type Antibody Screen Microbiology Microbiology Results: Microbiology 03/23/23 09:03 Blood - Venous Blood Culture - Final No growth after 5 days. 03/23/23 08:45 Blood - Venous Blood Culture - Final No growth after 5 days. Progress Note: A&P Assessment and plan Plan Neurologic: Patient is currently intubated and receiving a Precedex drip at 1 mcg/kg/hr. We will continue the drip while weaning off of the vent status post tracheostomy placement/revision. Cardiovascular: patient has a history of chronic cor pulmonale as well as heart failure with preserved ejection fraction. cardiology was consulted. The patient ejection fraction is 65%. The patient is currently on Eliquis for anticoagulation for their atrial fibrillation. The patient has also been intermittently placed on diltiazem drip per protocol for atrial fibrillation with rapid ventricular response. Studies have shown that in the setting of atrial fibrillation with heart failure, diltiazem is a superior rate controlling agent. Currently the patients rate has been around the low 100?s in atrial fibrillation. The diltiazem is currently running at 125 mg per hour which has been ran continuously. The patient is also receiving diuresis due to suspected volume overload in the setting of chronic cor pulmonale. Lasix was discontinued and we initiated a 2 mg bumex iv bid per protocol. Respiratory: the patient has a history of obstructive sleep apnea, and hypo ventilation syndrome. Patient is currently receiving mechanical ventilation through the tracheostomy. Patient?s ABG read off as a primary respiratory acidosis with a secondary metabolic alkalosis. PH is normal at 7.45. Combination derangement suspected from lung disease induced hypercarbia plus contraction alkalosis component from diuretic use. Patient is on assist control with tidal volume of 275, FiO2 50, peep of 8, and a rate of 16. However, in the early childhood education instructor of 03/29, the patient was found to have tidal volumes intermittently below 100. There?s a suspected balloon leak from the tracheostomy from inadequate sizing. Patient was urgently scheduled for tracheostomy revision to resize and to better adequately ventilate. Patient also receiving methylprednisolone for what is termed as end-stage lung disease which we will continue for now. Gastrointestinal: no issues at this time. Currently is NPO again for surgery. Renal/Genitourinary: no issues at this time. Currently diuresing patient with Bumex 2 mg BID per protocol. Current 24 hour output average of 1.13 mL/kg/hr. We will continue to monitor I/O. Hematology: patient is on anticoagulation, eliquis 5 mg b.i.d. for atrial fibrillation and has been on hold since 03/27 due to procedures. Infectious disease: patient currently has a leukocytosis of 14. No reasonable suspicion for infection, patient is also on steroid to help with any underlying respiratory inflammation. Patient also receiving perioperative antibiotic of 1 g of cefazolin. Cefazolin is a first generation cephalosporin used for gram-positive coverage such as a case during surgeries. Endocrine: patient has history of type two diabetes mellitus. Currently the patient is being maintained on sliding scale lispro and glargine. Blood glucose levels have been ranging from 160s to low 300s. Patient is also on steroid inducing hyperglycemia. Integumentary: no acute issues at this time. Anterior neck and mid upper abdominal wound sites clean, dry and intact. No signs of exudate, erythema, warmth, or exsanguination. Quality Stroke Does the patient have a stroke diagnosis?: No VTE Prior VTE?: No VTE Risk Level:: Medical - moderate - high VTE Device Contraindication: Treatment Not Indicated VTE Drug Contraindication: Treatment Not Tolerated
[2023-03-29] MEDS: dilTIAZem HCL 125 MG in 0.9 % Sodium Chloride 100 ML 10 MG IVCONT ×2 (10:58→21:04)
[2023-03-29 11:10] LABS: Glucose, Whole Blood 298 mg/dL (60-115)
[2023-03-29 11:19] LABS: VBG Base Excess 20.4 mmol/L; VBG HCO3 47 mmol/L (22-26); VBG pCO2 59 mmHg; VBG pO2 41 mmHg
--- NOTE | 2023-03-29 12:25 | P.CDIM_ITS ---
PROVIDER RESPONSE TEXT: To clarify, the appropriate diagnosis supported by the clinical indicators: Hyperglycemia QUERY TEXT: PHYSICIAN'S DOCUMENTATION REQUEST Date of Query: 03/28/2023 08:13 AM EDT Patient Name: Ashleigh Keenan Admit Date: 03/23/2023 Dear Rylee Culp, A review of the medical record indicates additional documentation may be needed. Please review below and update the documentation accordingly. Clinical Indicators: LAB FINDINGS: POC glucose 444 H 385 H 542 H PMH: Diabetes mellitus Insulin Based on the above, is there a diagnosis that correlates with these lab findings: Hyperglycemia Other etiology of lab findings please specify Other (explain)Clinically unable to determine (explain)Thank you, Ashley Cabrera, CCS, CDIS Use of terms such as suspected, likely, concern for, or probable (associated with a specific diagnosi s that is being evaluated, monitored, or treated as if it exists) are acceptable and can be coded in the inpatient se tting, when documented at the time of discharge. Please use your independent medical judgment in providing your response. THIS QUERY IS PART OF THE PERMANENT MEDICAL RECORD
--- NOTE | 2023-03-29 12:25 | P.CDIM_ITS ---
PROVIDER RESPONSE TEXT: To clarify, the appropriate diagnosis supported by the clinical indicators: Hyperkalemia QUERY TEXT: PHYSICIAN'S DOCUMENTATION REQUEST Date of Query: 03/28/2023 08:20 AM EDT Patient Name: Ashleigh Keenan Admit Date: 03/23/2023 Dear Rylee Culp, A review of the medical record indicates additional documentation may be needed. Please review below and update the documentation accordingly. Clinical Indicators: LAB FINDINGS: 03/26 - potassium 6.5 H Klor-con Based on the above, is there a diagnosis that correlates with these lab findings: Hyperkalemia Labs indicate a diagnosis of (please specify) Other (explain)Clinically unable to determine (explain)Thank you, Ashley Cabrera, CCS, CDIS Use of terms such as suspected, likely, concern for, or probable (associated with a specific diagnosi s that is being evaluated, monitored, or treated as if it exists) are acceptable and can be coded in the inpatient se tting, when documented at the time of discharge. Please use your independent medical judgment in providing your response. THIS QUERY IS PART OF THE PERMANENT MEDICAL RECORD
[2023-03-29 12:29] LABS: Venous Blood Gas Refer to POC result
--- NOTE | 2023-03-29 12:39 | PC.RT ---
Pt returned from OR with 8.0 Bivona hyperflex TTS trach tube with adjustable flange in place. The cuff seal is maintained with 2cc sterile water and the flange is set at 13. Signage was posted above the bed indicating the measurment. A spare trach tube, identical to the one placed this am in the OR is at the bedside as well as surgilube, 10ml sterile h20 and a 10cc syringe. A 10 cc syringe clearly marked sterile h2o only is taped to the vent containing 6ml of sterile h20. During RN care, ie rolling this RT recommends to RN and MD that there be coordination with RT to hold/protect the airway from dislodging during such manuvers. The pt was hypoxic requiring 100% fio2 post op and notably not synchronous with the vent. The pt was placed on PC and was notably more comfortable allowing for a wean of fio2 to 70% within 30 mins. RN/MD are aware. RN educator Sushma Nicole and unit RN's educated on aspects of this particular trach tube and at this time have no further questions.
--- NOTE | 2023-03-29 12:42 | HO.SKINPHOTO ---
Location: coccyx Category: stage 2 Stage: Length: 6cm Width: 0.5cm Depth: cm
[2023-03-29] MEDS: Acetaminophen 325 MG TABLET 975 MG PO (12:57)
--- NOTE | 2023-03-29 14:03 | MHC.CM.PN ---
Pt brought back to OR today for placement of a larger trach. Pt returned to ICU in stable condition. Clinical updates sent to [facility] in anticipation of transfer once medically ready. Pt will need ALS transport. MD to update pt's spouse/HCP on above.
--- NOTE | 2023-03-29 14:30 | HO.POSTANES ---
Post Anesthesia Evaluation Post Anesthesia Evaluation Date of Service: 03/29/23 Vital Signs: Vital Signs Temp Pulse Resp BP Pulse Ox O2 Del Method FiO2 03/29/23 14:00 101.5 F H 103 H 16 155/96 H 90 L Mechanical Ventilation 70 03/29/23 13:00 101.2 F H 96 15 149/95 H 90 L Mechanical Ventilation 70 03/29/23 12:17 110 H 19 03/29/23 12:17 70 03/29/23 12:00 70 03/29/23 12:00 101.5 F H 115 H 20 142/86 H 89 L Mechanical Ventilation 70 03/29/23 11:03 70 03/29/23 11:00 101.7 F H 99 13 143/90 H 87 L Mechanical Ventilation 70 03/29/23 09:00 102.2 F H 107 H 15 145/85 H 90 L Mechanical Ventilation 50 03/29/23 08:51 105 H 21 H 03/29/23 08:51 50 03/29/23 08:00 102.2 F H 86 14 139/87 93 Mechanical Ventilation 50 03/29/23 07:39 50 03/29/23 07:00 101.8 F H 91 15 149/96 H 93 Mechanical Ventilation 50 03/29/23 06:00 101.5 F H 87 23 H 166/91 H 90 L Mechanical Ventilation 50 03/29/23 05:00 101.3 F H 84 21 H 157/96 H 91 L Mechanical Ventilation 50 03/29/23 04:29 20 03/29/23 04:19 50 03/29/23 03:55 101.7 F H 94 22 H 142/96 H 93 Mechanical Ventilation 50 03/29/23 03:52 47 H 03/29/23 03:41 50 03/29/23 03:12 38 H 03/29/23 03:00 101.7 F H 76 48 H 128/82 90 L Mechanical Ventilation 50 Anesthesia: General Endotracheal-GETA (tracheostomy) Mental Status: Sedated Pain Control: Satisfactory Nausea/Vomiting: None Hydration: Adequate Anesthesia-Related Issues: No Anes. Related Issues
[2023-03-29 16:43] LABS: Glucose, Whole Blood 354 mg/dL (60-115)
[2023-03-29] MEDS: Piperacillin Sodium/Tazobactam 4.5 GM in 0.9 % Sodium Chloride 100 ML IV ×2 (17:26→22:59)
[2023-03-29 18:12] LABS: VBG Base Excess 15.4 mmol/L; VBG HCO3 39 mmol/L (22-26); VBG pCO2 43 mmHg; VBG pH 7.56 (7.32-7.43); VBG pO2 54 mmHg
[2023-03-29 20:34] LABS: Glucose, Whole Blood 314 mg/dL (60-115)
[2023-03-29] MEDS: vancomycin/NS 2,000 MG/500 ML PLAST..BAG 250 MG IV (20:45)
--- NOTE | 2023-03-29 21:13 | PHA.PROG ---
Admission Date/Time: March 23, 2023 14:24 Indication: respiratory Weight in k.8 kg Adjusted body weight in Kg: [place] body weight in Kg: Obesity Dosing Indication % IBW: Serum Creatinine - Last 168 Hours 03/23/23 03/24/23 03/26/23 08:45 05:30 12:17 Creatinine 0.65 0.77 1.34 03/27/23 03/27/23 03/28/23 05:38 23:13 04:32 Creatinine 0.88 0.78 0.73 03/29/23 04:48 Creatinine 0.81 Estimated CrCl and GFR - Last 168 Hours 03/23/23 03/24/23 03/26/23 08:45 05:30 12:17 Estim Creat Clear Calc 108.2 91.4 52.4 Estimated GFR > 60 > 60 40 03/27/23 03/27/23 03/28/23 05:38 23:13 04:32 Estim Creat Clear Calc 79.9 90.2 96.4 Estimated GFR > 60 > 60 > 60 03/29/23 04:48 Estim Creat Clear Calc 96.5 Estimated GFR > 60 Vancomycin Loading Dose: 2000 mg Current Vancomycin Dosing Regimen: 1000 mg Q12H Vancomycin Monitoring using AUC goal of 400 - 600 range with trough as surrogate marker: 553 Date and Time for next Vancomycin Level to be drawn: 03/31 @0700 Pharmacist Comments on Vancomycin Plan: Vancomycin dosing will take advantage of [employer] as a clinical decision support tool that uses Bayesian modeling to calculate individual patient's pharmacokinetic parameters and forecast the patient's drug concentration time course with the target goal AUC 24 range of 400 - 600 mg/L/hr.
[2023-03-29] MEDS: Insulin Glargine,Hum.rec.anlog 100 UNIT/ML 10 ML VIAL 35 UNIT SUBCUT (21:26)
[2023-03-29 22:24] LABS: Venous Blood Gas Refer to POC result
[2023-03-30] VITALS (33 sets, daily range): BP systolic 91–140; BP diastolic 52–86; PULSE 69–127; RESP 12–23; TEMP 34.1–39.3; O2SAT 83–100; BMI 62.6
[2023-03-30] MEDS: 0.9 % Sodium Chloride Flush 3 ML SYRINGE IVFLUSH ×4 (00:17→23:21)
[2023-03-30 00:25] LABS: Glucose, Whole Blood 266 mg/dL (60-115)
[2023-03-30] MEDS: Acetaminophen Oral Liquid 650 MG/20.3 ML SOLUTION 950 MG PO ×2 (01:02→08:50)
[2023-03-30] MEDS: Insulin Lispro 100 UNIT/ML 3 ML VIAL SUBCUT ×4 (01:06→18:13)
[2023-03-30] MEDS: dexmedeTOMIDidine HCL/NS 400 MCG/100 ML INFUS..BTL 36.75 MCG IVCONT ×2 (01:47→04:29)
[2023-03-30] MEDS: Piperacillin Sodium/Tazobactam 4.5 GM in 0.9 % Sodium Chloride 100 ML IV ×4 (04:28→23:21)
[2023-03-30] MEDS: dilTIAZem HCL 125 MG in 0.9 % Sodium Chloride 100 ML 10 MG IVCONT (04:39)
[2023-03-30 05:19] LABS: VBG Base Excess 15.2 mmol/L; VBG HCO3 37 mmol/L (22-26); VBG pCO2 38 mmHg; VBG pO2 51 mmHg
[2023-03-30 05:41] LABS: Venous Blood Gas Refer to POC result
[2023-03-30 05:52] LABS: MANUAL DIFF FLAG NO
[2023-03-30 06:00] LABS: Basophils Percent Auto 0.1 % (0-2); Eosinophils Percent Auto 0.1 % (0-4); Hematocrit 38.6 % (37.0-47.0); Hemoglobin 11.8 g/dl (12.0-16.0); Imm Gran Abs Auto 0.07 X10*3/uL (0.00-0.03); Imm Gran Pct Auto 0.5 % (0.0-0.4); Lymphocytes Absolute Auto 1.5 X10*3/uL (1.2-4.9); Lymphocytes Percent Auto 10.3 % (20-40); Mean Corpuscular HGB Conc 30.6 g/dl (31.0-35.0); Mean Corpuscular Hemoglobin 25.4 pg (27.0-33.0); Mean Platelet Volume 10.4 fL (9.4-12.3); Monocytes Absolute Auto 1.1 X10*3/uL (0.1-1.2); Monocytes Percent Auto 7.6 % (2-11); Neutrophils Absolute Auto 12.2 x10*3/uL (2.0-8.3); Neutrophils Percent Auto 81.4 % (45-73); Platelet Count 360 X10*3/uL (160-400); Red Blood Count 4.65 X10*6/uL (4.20-5.50); Red Cell Distribution Width 15.6 % (11.0-16.0)
[2023-03-30 06:22] LABS: Alanine Aminotransferase 12 U/L (0-31); Albumin Level 3.6 g/dL (3.5-5.0); Alkaline Phosphatase 78 U/L (39-117); Anion Gap 20 (12-20); Aspartate Amino Transferase 10 U/L (5-31); Bilirubin Total 1.3 mg/dL (0.0-1.0); Blood Urea Nitrogen 34 mg/dL (9-16); Calcium 9.4 mg/dL (8.4-10.2); Carbon Dioxide 27 mmol/L (22-29); Chloride 97 mmol/L (96-108); Creatinine Clr Calc Pharmacy 91.2; Estimated Glomerular Filt Rate > 60; Glucose Random 180 mg/dL (60-115); Magnesium 2.6 mg/dL (1.6-2.6); Phosphorus 2.9 mg/dL (2.7-4.5); Potassium 3.5 mmol/L (3.3-5.1); Sodium 140 mmol/L (135-145); Total Protein 6.9 g/dL (6.5-8.0)
[2023-03-30 06:25] LABS: Glucose, Whole Blood 164 mg/dL (60-115)
--- NOTE | 2023-03-30 06:34 | PC.NURSE ---
PT MAINTAINED ON PC VENT SETTINGS OVERNIGHT. NO RESP DIFFICULTIES NOTED. FIO2 WEANED FROM 80% TO 60% AND O2 SATS REMAIN MID TO HIGH 90'S. TRACH MIDLINE. NO COMPLICATIONS. RESP THERAPIST AT BEDSIDE WHEN PT TURNED. TRACH SITE CLEANED. SMALL TO MOD AMOT OF OLD BLOODY DRAINAGE NOTED ON DSG. STOMA SITE CLEANED. NEW DSG APPLIED. PEG TUBE INTACT AND DSG CHANGED. SITE CLEAN AND DRY. NO STAINING ON DSG. PEG FLUSHES WELL. TEMP OVER 101. QUESTION THE RELIABILITY OF TEMP SENSING REYES. RECTAL TEMP DONE TO CONFIRM TEMP AND CORRELATES WITH TEMP SENSING REYES. TYLENOL GIVEN VIA PEG. FOAM DSG INTACT ON COCCYX.. MONITOR SHOWS AFIB, RATE CONTROLLED ON CARDIZEM DRIP. BP STABLE.
--- NOTE | 2023-03-30 07:37 | PM.CCPN ---
Subjective Subjective Date of Service: 03/30/23 Interval History: intermittently febrile; otherwise no significant overnight events Critical Care Time (minutes): 90 Physical Exam Vital Signs: Vital Signs: Last Vital Signs Temp 102.7 F H 03/30/23 07:00 Pulse 74 03/30/23 07:00 Resp 17 03/30/23 07:00 BP 116/72 03/30/23 07:00 Pulse Ox 98 03/30/23 07:00 O2 Del Method Mechanical Ventil ation 03/30/23 07:00 O2 Flow Rate 50 03/26/23 18:53 FiO2 60 03/30/23 07:00 BMI result Body Mass Index 62.6 Const: Other: morbidly obese General: no acute distress and awake HEENT: Other: tracheostomy midline, clean, dry, intact Head: Yes normal to inspection, Yes normocephalic and Yes atraumatic Eyes: General: appearance normal, both eyes and all related structures Neck: Neck: Yes normal visual inspection and Yes supple Chest: Chest palpation & inspection: normal inspection of the chest Resp: Other: decreased breath sounds throughout Cardio: Rhythm: abnormal rhythm GI: Inspection: Yes normal to inspection, No Abdominal wall edema and No distended Palpation (GI): Soft to palpation, not firm, nontender, no guarding and not rigid Skin: General skin exam: no rashes or lesions noted Neuro: Other: unable to phonate given new tracheostomy; responds to verbal stimulus appropriately Extrem: General: Yes normal to inspection and Yes no clubbing, cyanosis or edema Psych: Appearance: grossly normal Objective Data Labs 03/30/23 05:11 03/30/23 05:11 Labs: Laboratory Results - last 24 hr 03/29/23 03/29/23 03/29/23 04:48 11:05 11:14 WBC RBC Hgb Hct MCV MCH MCHC RDW Plt Count MPV Immature Gran % (Auto) Neut % (Auto) Lymph % (Auto) [place] % (Auto) Eos % (Auto) Baso % (Auto) Lymph # (Auto) [place] # (Auto) Eos # (Auto) Baso # (Auto) Abs Immat Gran (auto) Absolute Neuts (auto) Absolute Nucleated RBC Nucleated RBC % (auto) VBG pH 7.50 H VBG pCO2 59 VBG pO2 41 VBG HCO3 47 H VBG O2 Saturation 65.0 VBG Base Excess 20.4 Sodium Potassium Chloride Carbon Dioxide Anion Gap BUN Creatinine Estim Creat Clear Calc Estimated GFR POC Glucose 298 H Random Glucose Calcium Phosphorus 3.2 Magnesium 2.3 Total Bilirubin AST ALT Alkaline Phosphatase Total Protein Albumin 03/29/23 03/29/23 03/29/23 16:39 18:05 20:31 WBC RBC Hgb Hct MCV MCH MCHC RDW Plt Count MPV Immature Gran % (Auto) Neut % (Auto) Lymph % (Auto) [place] % (Auto) Eos % (Auto) Baso % (Auto) Lymph # (Auto) [place] # (Auto) Eos # (Auto) Baso # (Auto) Abs Immat Gran (auto) Absolute Neuts (auto) Absolute Nucleated RBC Nucleated RBC % (auto) VBG pH 7.56 H VBG pCO2 43 VBG pO2 54 VBG HCO3 39 H VBG O2 Saturation 81.0 VBG Base Excess 15.4 Sodium Potassium Chloride Carbon Dioxide Anion Gap BUN Creatinine Estim Creat Clear Calc Estimated GFR POC Glucose 354 H* 314 H Random Glucose Calcium Phosphorus Magnesium Total Bilirubin AST ALT Alkaline Phosphatase Total Protein Albumin 03/30/23 03/30/23 03/30/23 00:20 05:11 05:13 WBC 15.0 H RBC 4.65 Hgb 11.8 L Hct 38.6 MCV 83.0 MCH 25.4 L MCHC 30.6 L RDW 15.6 Plt Count 360 MPV 10.4 Immature Gran % (Auto) 0.5 H Neut % (Auto) 81.4 H Lymph % (Auto) 10.3 L [place] % (Auto) 7.6 Eos % (Auto) 0.1 Baso % (Auto) 0.1 Lymph # (Auto) 1.5 [place] # (Auto) 1.1 Eos # (Auto) 0.0 Baso # (Auto) 0.0 Abs Immat Gran (auto) 0.07 H Absolute Neuts (auto) 12.2 H Absolute Nucleated RBC 0.000 Nucleated RBC % (auto) 0.0 VBG pH 7.60 H* VBG pCO2 38 VBG pO2 51 VBG HCO3 37 H VBG O2 Saturation 81.0 VBG Base Excess 15.2 Sodium 140 Potassium 3.5 Chloride 97 Carbon Dioxide 27 Anion Gap 20 BUN 34 H Creatinine 0.84 Estim Creat Clear Calc 91.2 Estimated GFR > 60 POC Glucose 266 H Random Glucose 180 H Calcium 9.4 Phosphorus 2.9 Magnesium 2.6 Total Bilirubin 1.3 H AST 10 ALT 12 Alkaline Phosphatase 78 Total Protein 6.9 Albumin 3.6 03/30/23 06:21 WBC RBC Hgb Hct MCV MCH MCHC RDW Plt Count MPV Immature Gran % (Auto) Neut % (Auto) Lymph % (Auto) [place] % (Auto) Eos % (Auto) Baso % (Auto) Lymph # (Auto) [place] # (Auto) Eos # (Auto) Baso # (Auto) Abs Immat Gran (auto) Absolute Neuts (auto) Absolute Nucleated RBC Nucleated RBC % (auto) VBG pH VBG pCO2 VBG pO2 VBG HCO3 VBG O2 Saturation VBG Base Excess Sodium Potassium Chloride Carbon Dioxide Anion Gap BUN Creatinine Estim Creat Clear Calc Estimated GFR POC Glucose 164 H Random Glucose Calcium Phosphorus Magnesium Total Bilirubin AST ALT Alkaline Phosphatase Total Protein Albumin Microbiology Microbiology Results: Microbiology 03/23/23 09:03 Blood - Venous Blood Culture - Final No growth after 5 days. 03/23/23 08:45 Blood - Venous Blood Culture - Final No growth after 5 days. Progress Note: A&P Assessment and plan (1) Atrial fibrillation with RVR: Status: Acute (2) Acute on chronic respiratory failure with hypoxia and hypercapnia: Status: Acute (3) Acute on chronic heart failure with preserved ejection fraction (HFpEF): Status: Acute (4) Status post tracheostomy: Status: Acute (5) S/P percutaneous endoscopic gastrostomy (PEG) tube placement: Status: Acute (6) COPD (chronic obstructive pulmonary disease): Status: Acute (7) TAURUS (obstructive sleep apnea): Status: Acute (8) Obesity hypoventilation syndrome: Status: Acute Plan Assessment: Patient is a 62 Y F with morbid obesity, c/b OHS, TAURUS, COPD, CHF, c/b acute on chronic mixed respiratory failure, well-known to our institution, presenting with acute on chronic respiratory failure on 03/23, admitted floor, underwent empiric treatment for COPD, CHF exacerbations, though necessitating near constant AVAPS, likely representing end-stage lung disease Plan: N: dexmedetomidine gtt to tolerate new tracheostomy; continue to wean as tolerated; can consider anti-psychotics PRN CV: CHF, diuresis, net negative 11L total since admission; given contraction metabolic alkalosis, to d/c bumetanide standing; to consider diuresis PRN; atrial fibrillation, on diltiazem gtt; to convert to diltiazem IV R: acute on chronic mixed respiratory failure d/t multiple comorbidities; s/p trach, on PC GI: s/p PEG; NPO; to start tube feeds : no acute issues H: to resume DVT prophylaxis today; consider apixaban given atrial fibrillation tomorrow ID: leukocytosis, fever; given recent trach exchange, admission, c/f aspiration pneumonia; empiric vancomycin, zosyn; follow-up MRSA, sputum cultures E: diabetes mellitus; insulin regimen Quality Stroke Does the patient have a stroke diagnosis?: No VTE Prior VTE?: No VTE Risk Level:: Medical - moderate - high VTE Device Contraindication: Treatment Not Indicated VTE Drug Contraindication: N/A - Med Ordered
[2023-03-30] MEDS: dexmedeTOMIDidine HCL/NS 400 MCG/100 ML INFUS..BTL 22.05 MCG IVCONT (07:38)
[2023-03-30] MEDS: acetaZOLAMIDE sodium 500 MG VIAL IVPUSH ×3 (07:43→23:21)
[2023-03-30] MEDS: Albuterol Sulfate (0.083%) 2.5 MG/3 ML VIAL.NEB INHALE ×3 (08:45→15:39)
[2023-03-30] MEDS: vancomycin HCL 1,000 MG in 0.9 % Sodium Chloride 250 ML 270 MG IV ×2 (09:05→20:25)
--- NOTE | 2023-03-30 09:17 | HO.POSTANES ---
Post Anesthesia Evaluation Post Anesthesia Evaluation Date of Service: 03/30/23 Vital Signs: Vital Signs Temp Pulse Resp BP Pulse Ox O2 Del Method FiO2 03/30/23 09:00 100.9 F H 94 13 115/75 91 L Mechanical Ventilation 50 03/30/23 08:51 79 13 03/30/23 08:00 50 03/30/23 08:00 102.4 F H 75 18 118/85 97 Mechanical Ventilation 50 03/30/23 08:00 50 03/30/23 07:00 102.7 F H 74 17 116/72 98 Mechanical Ventilation 60 03/30/23 06:00 101.8 F H 76 21 H 124/78 96 Mechanical Ventilation 60 03/30/23 05:00 69 19 122/80 98 Mechanical Ventilation 60 03/30/23 04:13 60 03/30/23 04:00 60 03/30/23 04:00 101.5 F H 84 20 115/77 94 Mechanical Ventilation 60 03/30/23 03:00 80 18 117/82 98 Mechanical Ventilation 80 03/30/23 02:00 101.7 F H 79 20 128/77 100 Mechanical Ventilation 80 03/30/23 01:00 99.5 F 85 20 130/79 99 Mechanical Ventilation 80 03/30/23 00:10 80 03/30/23 00:00 80 03/30/23 00:00 102.6 F H 79 17 123/84 99 Mechanical Ventilation 80 03/29/23 23:00 101.9 F H 98 19 137/94 H 95 Mechanical Ventilation 80 03/29/23 22:00 102 F H 97 20 144/78 H 96 Mechanical Ventilation 80 Anesthesia: General Mental Status: Sedated Pain Control: Satisfactory Nausea/Vomiting: None Hydration: Adequate Anesthesia-Related Issues: No Anes. Related Issues
[2023-03-30 09:25] LABS: Hematocrit 38.9 % (37.0-47.0); Hemoglobin 11.7 g/dl (12.0-16.0); Mean Corpuscular HGB Conc 30.1 g/dl (31.0-35.0); Mean Corpuscular Hemoglobin 25.5 pg (27.0-33.0); Mean Corpuscular Volume 84.7 fL (80.0-98.0); Mean Platelet Volume 10.1 fL (9.4-12.3); Platelet Count 330 X10*3/uL (160-400); Red Blood Count 4.59 X10*6/uL (4.20-5.50); Red Cell Distribution Width 15.7 % (11.0-16.0); White Blood Count 14.9 X10*3/uL (4.8-10.8)
[2023-03-30 09:32] LABS: INTERNATIONAL NORM RATIO 1.2 (0.9-1.1); Prothrombin Time 14.1 SEC (11.1-13.3)
[2023-03-30 09:35] LABS: Partial Thromboplastin Time 25.8 SEC (26.0-36.4)
--- NOTE | 2023-03-30 10:02 | P.PNGS_ITS ---
Subjective Subjective Date of Service: 03/30/23 Interval history: No apparent leak from the trach tube after revision No events reported Remains sedated Peg tube feeds started Physical Exam 2 Vital Signs: Vital Signs: Last Vital Signs Temp 100.9 F H 03/30/23 09:00 Pulse 94 03/30/23 09:00 Resp 13 03/30/23 09:00 BP 115/75 03/30/23 09:00 Pulse Ox 91 L 03/30/23 09:00 O2 Del Method Mechanical Ventil ation 03/30/23 09:00 O2 Flow Rate 50 03/26/23 18:53 FiO2 50 03/30/23 09:00 BMI result Body Mass Index 62.6 Const: Other: Sedated, on ventilator but breathing on her own General: comfortable Resp: Other: On ventilator via tracheostomy GI: Other: Obese, peg tube in place Palpation (GI): Soft to palpation and not firm Objective Data Active Medications Acetaminophen (Acetaminophen Oral Liquid 650 Mg/20.3 Ml Solution) 950 mg PO Q8H [facility] Last Admin: 03/30/23 08:50 Dose: 950 mg Documented By: RENETTA Acetazolamide (Acetazolamide Sodium 500 Mg Vial) 500 mg IVPUSH Q8H [facility] Stop: 03/31/23 23:01 Last Admin: 03/30/23 07:43 Dose: 500 mg Documented By: RENETTA Albuterol Sulfate (Albuterol Sulfate (0.083%) 2.5 Mg/3 Ml Vial.Neb) 2.5 mg INHALE RQ4H WHILE AWAKE [facility] Last Admin: 03/30/23 08:45 Dose: 2.5 mg Documented By: CHELY Dextrose (Dextrose 50 % 25 Gm/50 Ml Syringe) 25 gm IVPUSH Q15M PRN; Protocol PRN Reason: per Hypoglycemia Standing Ord. Diltiazem HCl (Diltiazem Hcl 60 Mg Tablet) 60 mg PO QID [facility]; Protocol Enoxaparin Sodium (Enoxaparin Sodium 60 Mg/0.6 Ml Syringe) 60 mg SUBCUT Q12H [facility] Glucose (Glucose Gel 15 Gm Gel..Gram.) 15 gm PO Q15M PRN; Protocol PRN Reason: per Hypoglycemia Standing Ord. Diltiazem HCl 125 mg/ Sodium (Chloride) 125 mls @ 0 mls/hr IVCONT .Q0M [facility]; Protocol Last Titration: 10/21/23 06:15 Dose: 8 mg/hr, 8 mls/hr Documented By: ADELA Dexmedetomidine HCl (Precedex) 400 mcg in 100 mls @ 0 mls/hr IVCONT .Q0M [facility]; Protocol Last Titration: 03/30/23 09:56 Dose: 0.2 mcg/kg/hr, 7.35 mls/hr Documented By: RENETTA Piperacillin Sod/Tazobactam (Sod 4.5 gm/ Sodium Chloride) 100 mls @ 200 mls/hr IV Q6H [facility] Last Infusion: 03/30/23 05:03 Dose: Infused Documented By: LYLA Vancomycin HCl 1,000 mg/ (Sodium Chloride) 270 mls @ 270 mls/hr IV Q12H [facility] Last Admin: 03/30/23 09:05 Dose: 270 mls/hr Documented By: RENETTA Insulin Glargine (Insulin Glargine,Hum.Rec.Anlog 100 Unit/Ml 10 Ml Vial) 35 unit SUBCUT BEDTIME [facility] Last Admin: 03/29/23 21:26 Dose: 35 unit Documented By: ADELA Insulin Human Lispro (Insulin Lispro 100 Unit/Ml 3 Ml Vial) 0 unit SUBCUT Q6H [facility]; Protocol Last Admin: 03/30/23 06:27 Dose: 2 unit Documented By: ADELA Methylprednisolone (Methylprednisolone 4 Mg Tablet) 40 mg PO DAILY [facility] Pharmacy Consult (Consult Rx Vancomycin Dosing) 1 each MISCELLANE DAILY PRN PRN Reason: Consult order Sodium Chloride (0.9 % Sodium Chloride Flush 3 Ml Syringe) 3 ml IVFLUSH QSHIFT [facility] Last Admin: 03/30/23 07:45 Dose: 3 ml Documented By: RENETTA Labs 03/30/23 08:59 03/30/23 05:11 Labs: Laboratory Results - last 24 hr 03/29/23 03/29/23 03/29/23 11:05 11:14 16:39 MCV MCH MCHC RDW Plt Count MPV Immature Gran % (Auto) Neut % (Auto) Lymph % (Auto) [place] % (Auto) Eos % (Auto) Baso % (Auto) Lymph # (Auto) [place] # (Auto) Eos # (Auto) Baso # (Auto) Abs Immat Gran (auto) Absolute Neuts (auto) Absolute Nucleated RBC Nucleated RBC % (auto) PT INR APTT VBG pH 7.50 H VBG pCO2 59 VBG pO2 41 VBG HCO3 47 H VBG O2 Saturation 65.0 VBG Base Excess 20.4 Anion Gap Estim Creat Clear Calc Estimated GFR POC Glucose 298 H 354 H* Random Glucose Calcium Phosphorus Magnesium Total Bilirubin AST ALT Alkaline Phosphatase Total Protein Albumin 03/29/23 03/29/23 03/30/23 18:05 20:31 00:20 MCV MCH MCHC RDW Plt Count MPV Immature Gran % (Auto) Neut % (Auto) Lymph % (Auto) [place] % (Auto) Eos % (Auto) Baso % (Auto) Lymph # (Auto) [place] # (Auto) Eos # (Auto) Baso # (Auto) Abs Immat Gran (auto) Absolute Neuts (auto) Absolute Nucleated RBC Nucleated RBC % (auto) PT INR APTT VBG pH 7.56 H VBG pCO2 43 VBG pO2 54 VBG HCO3 39 H VBG O2 Saturation 81.0 VBG Base Excess 15.4 Anion Gap Estim Creat Clear Calc Estimated GFR POC Glucose 314 H 266 H Random Glucose Calcium Phosphorus Magnesium Total Bilirubin AST ALT Alkaline Phosphatase Total Protein Albumin 03/30/23 03/30/23 03/30/23 05:11 05:13 06:21 MCV 83.0 MCH 25.4 L MCHC 30.6 L RDW 15.6 Plt Count 360 MPV 10.4 Immature Gran % (Auto) 0.5 H Neut % (Auto) 81.4 H Lymph % (Auto) 10.3 L [place] % (Auto) 7.6 Eos % (Auto) 0.1 Baso % (Auto) 0.1 Lymph # (Auto) 1.5 [place] # (Auto) 1.1 Eos # (Auto) 0.0 Baso # (Auto) 0.0 Abs Immat Gran (auto) 0.07 H Absolute Neuts (auto) 12.2 H Absolute Nucleated RBC 0.000 Nucleated RBC % (auto) 0.0 PT INR APTT VBG pH 7.60 H* VBG pCO2 38 VBG pO2 51 VBG HCO3 37 H VBG O2 Saturation 81.0 VBG Base Excess 15.2 Anion Gap 20 Estim Creat Clear Calc 91.2 Estimated GFR > 60 POC Glucose 164 H Random Glucose 180 H Calcium 9.4 Phosphorus 2.9 Magnesium 2.6 Total Bilirubin 1.3 H AST 10 ALT 12 Alkaline Phosphatase 78 Total Protein 6.9 Albumin 3.6 03/30/23 08:59 MCV 84.7 MCH 25.5 L MCHC 30.1 L RDW 15.7 Plt Count 330 MPV 10.1 Immature Gran % (Auto) Neut % (Auto) Lymph % (Auto) [place] % (Auto) Eos % (Auto) Baso % (Auto) Lymph # (Auto) [place] # (Auto) Eos # (Auto) Baso # (Auto) Abs Immat Gran (auto) Absolute Neuts (auto) Absolute Nucleated RBC 0.000 Nucleated RBC % (auto) 0.0 PT 14.1 H INR 1.2 H APTT 25.8 L VBG pH VBG pCO2 VBG pO2 VBG HCO3 VBG O2 Saturation VBG Base Excess Anion Gap Estim Creat Clear Calc Estimated GFR POC Glucose Random Glucose Calcium Phosphorus Magnesium Total Bilirubin AST ALT Alkaline Phosphatase Total Protein Albumin Procedures Date of Service Date of Service: 03/30/23 Progress Note: A&P Assessment and plan (1) Obesity hypoventilation syndrome: Status: Acute Assessment and Plan: Status post PEG tube and tracheostomy tube placement Trach revised yesterday No leak Continue current care Peg tube feeds started, okay to advance to target Rest of care as per ICU Time Spent With Patient Time: Total time managing care of this patient today ____ minutes. Quality Stroke Does the patient have a stroke diagnosis?: No VTE Prior VTE?: No VTE Risk Level:: Medical - moderate - high VTE Device Contraindication: Treatment Not Indicated VTE Drug Contraindication: N/A - Med Ordered
[2023-03-30] MEDS: methylPREDNISolone 4 MG TABLET 40 MG PO (11:22)
[2023-03-30] MEDS: Enoxaparin Sodium 60 MG/0.6 ML SYRINGE SUBCUT ×2 (11:22→20:26)
[2023-03-30] MEDS: dilTIAZem HCL 60 MG TABLET PO ×3 (11:22→20:26)
[2023-03-30 11:53] LABS: Glucose, Whole Blood 177 mg/dL (60-115)
[2023-03-30 12:15] LABS: VBG Base Excess 9.6 mmol/L; VBG HCO3 32 mmol/L (22-26); VBG pCO2 37 mmHg; VBG pH 7.54 (7.32-7.43); VBG pO2 59 mmHg
[2023-03-30] MEDS: dilTIAZem HCL 50 MG/10 ML VIAL 10 MG IVPUSH (16:16)
[2023-03-30 17:28] LABS: Venous Blood Gas Refer to POC result
[2023-03-30 18:10] LABS: Glucose, Whole Blood 284 mg/dL (60-115)
[2023-03-30 19:57] LABS: VBG Base Excess 9.1 mmol/L; VBG HCO3 33 mmol/L (22-26); VBG pCO2 42 mmHg; VBG pO2 51 mmHg
[2023-03-30] MEDS: dilTIAZem HCL 50 MG/10 ML VIAL 20 MG IVPUSH (20:21)
[2023-03-30] MEDS: Insulin Glargine,Hum.rec.anlog 100 UNIT/ML 10 ML VIAL 35 UNIT SUBCUT (20:27)
[2023-03-31] VITALS (31 sets, daily range): BP systolic 113–160; BP diastolic 58–95; PULSE 90–119; RESP 10–97; TEMP 35–37.3; O2SAT 89–99; BMI 62.7
[2023-03-31] MEDS: Insulin Lispro 100 UNIT/ML 3 ML VIAL SUBCUT ×4 (00:17→18:24)
[2023-03-31 00:18] LABS: Glucose, Whole Blood 226 mg/dL (60-115)
[2023-03-31 00:50] LABS: Venous Blood Gas Refer to POC result
[2023-03-31] MEDS: dilTIAZem HCL 60 MG TABLET PO ×5 (02:28→19:46)
[2023-03-31] MEDS: Piperacillin Sodium/Tazobactam 4.5 GM in 0.9 % Sodium Chloride 100 ML IV ×4 (05:30→22:30)
[2023-03-31] MEDS: Acetaminophen Oral Liquid 650 MG/20.3 ML SOLUTION 950 MG PO ×2 (05:36→17:13)
[2023-03-31 05:44] LABS: MANUAL DIFF FLAG NO
[2023-03-31 05:52] LABS: Eosinophils Percent Auto 0.1 % (0-4); Hematocrit 39.1 % (37.0-47.0); Hemoglobin 11.9 g/dl (12.0-16.0); Imm Gran Abs Auto 0.09 X10*3/uL (0.00-0.03); Imm Gran Pct Auto 0.4 % (0.0-0.4); Lymphocytes Absolute Auto 1.6 X10*3/uL (1.2-4.9); Lymphocytes Percent Auto 7.4 % (20-40); Mean Corpuscular HGB Conc 30.4 g/dl (31.0-35.0); Mean Corpuscular Hemoglobin 25.3 pg (27.0-33.0); Mean Corpuscular Volume 83.2 fL (80.0-98.0); Mean Platelet Volume 10.5 fL (9.4-12.3); Monocytes Absolute Auto 1.5 X10*3/uL (0.1-1.2); Neutrophils Percent Auto 85.1 % (45-73); Platelet Count 339 X10*3/uL (160-400); Red Cell Distribution Width 15.9 % (11.0-16.0); White Blood Count 21.2 X10*3/uL (4.8-10.8)
[2023-03-31 05:55] LABS: Glucose, Whole Blood 221 mg/dL (60-115)
[2023-03-31 06:05] LABS: Alanine Aminotransferase 22 U/L (0-31); Albumin Level 3.7 g/dL (3.5-5.0); Alkaline Phosphatase 86 U/L (39-117); Anion Gap 17 (12-20); Aspartate Amino Transferase 33 U/L (5-31); Bilirubin Total 1.1 mg/dL (0.0-1.0); Blood Urea Nitrogen 40 mg/dL (9-16); Calcium 9.4 mg/dL (8.4-10.2); Carbon Dioxide 26 mmol/L (22-29); Chloride 103 mmol/L (96-108); Creatinine Clr Calc Pharmacy 94.5; Estimated Glomerular Filt Rate > 60; Glucose Random 224 mg/dL (60-115); Magnesium 2.3 mg/dL (1.6-2.6); Phosphorus 2.3 mg/dL (2.7-4.5); Potassium 2.4 mmol/L (3.3-5.1); Sodium 144 mmol/L (135-145); Total Protein 6.7 g/dL (6.5-8.0)
--- NOTE | 2023-03-31 07:28 | P.PNCC_ITS ---
Subjective Subjective Date of Service: 03/31/23 Interval History: no significant overnight events; tolerated PS AM and PM Critical Care Time (minutes): 90 Physical Exam 2 Vital Signs: Vital Signs: Last Vital Signs Temp 97.7 F 03/31/23 06:00 Pulse 107 H 03/31/23 07:00 Resp 20 03/31/23 07:00 BP 138/83 03/31/23 07:00 Pulse Ox 90 L 03/31/23 07:00 O2 Del Method Mechanical Ventil ation 03/31/23 07:00 O2 Flow Rate 50 03/26/23 18:53 FiO2 80 03/31/23 07:00 BMI result Body Mass Index 62.7 Const: Other: morbidly obese General: cooperative, comfortable and no acute distress HEENT: Head: Yes normal to inspection, Yes normocephalic and Yes atraumatic Eyes: General: appearance normal, both eyes and all related structures Neck: Other: tracheostomy in place, clean, dry, intact Neck: Yes normal visual inspection and Yes supple Chest: Chest palpation & inspection: normal inspection of the chest Resp: Other: increased breath sounds compared to previous days; no rales, rhonchi, wheezing Cardio: Rhythm: abnormal rhythm GI: Other: appreciable PEG tube in RUQ, clean, dry, intact Inspection: Yes normal to inspection Skin: Other: stage 2 decubitus ulcer, midline buttocks; otherwise, no rashes or lesions Neuro: Other: unable to phonate; alert, answers yes-no questions with head nods Extrem: General: Yes normal to inspection, Yes capillary refill normal and Yes no clubbing, cyanosis or edema Psych: Appearance: grossly normal Objective Data Labs 03/31/23 05:36 03/31/23 05:11 Labs: Laboratory Results - last 24 hr 03/29/23 03/30/23 03/30/23 20:10 08:59 11:49 WBC 14.9 H RBC 4.59 Hgb 11.7 L Hct 38.9 MCV 84.7 MCH 25.5 L MCHC 30.1 L RDW 15.7 Plt Count 330 MPV 10.1 Immature Gran % (Auto) Neut % (Auto) Lymph % (Auto) [place] % (Auto) Eos % (Auto) Baso % (Auto) Lymph # (Auto) [place] # (Auto) Eos # (Auto) Baso # (Auto) Abs Immat Gran (auto) Absolute Neuts (auto) Absolute Nucleated RBC 0.000 Nucleated RBC % (auto) 0.0 PT 14.1 H INR 1.2 H APTT 25.8 L VBG pH VBG pCO2 VBG pO2 VBG HCO3 VBG O2 Saturation VBG Base Excess Sodium Potassium Chloride Carbon Dioxide Anion Gap BUN Creatinine Estim Creat Clear Calc Estimated GFR POC Glucose 177 H Random Glucose Calcium Phosphorus Magnesium Total Bilirubin AST ALT Alkaline Phosphatase Total Protein Albumin Nasal Screen MRSA (PCR) TNP Nasal S. aureus Screen TNP Nasal MRSA/S.aureus Interp SEE NOTE 03/30/23 03/30/23 03/30/23 12:10 17:49 19:52 WBC RBC Hgb Hct MCV MCH MCHC RDW Plt Count MPV Immature Gran % (Auto) Neut % (Auto) Lymph % (Auto) [place] % (Auto) Eos % (Auto) Baso % (Auto) Lymph # (Auto) [place] # (Auto) Eos # (Auto) Baso # (Auto) Abs Immat Gran (auto) Absolute Neuts (auto) Absolute Nucleated RBC Nucleated RBC % (auto) PT INR APTT VBG pH 7.54 H 7.50 H VBG pCO2 37 42 VBG pO2 59 51 VBG HCO3 32 H 33 H VBG O2 Saturation 86.0 79.0 VBG Base Excess 9.6 9.1 Sodium Potassium Chloride Carbon Dioxide Anion Gap BUN Creatinine Estim Creat Clear Calc Estimated GFR POC Glucose 284 H Random Glucose Calcium Phosphorus Magnesium Total Bilirubin AST ALT Alkaline Phosphatase Total Protein Albumin Nasal Screen MRSA (PCR) Nasal S. aureus Screen Nasal MRSA/S.aureus Interp 03/31/23 03/31/23 03/31/23 00:11 05:11 05:36 WBC 21.2 H RBC 4.70 Hgb 11.9 L Hct 39.1 MCV 83.2 MCH 25.3 L MCHC 30.4 L RDW 15.9 Plt Count 339 MPV 10.5 Immature Gran % (Auto) 0.4 Neut % (Auto) 85.1 H Lymph % (Auto) 7.4 L [place] % (Auto) 7.0 Eos % (Auto) 0.1 Baso % (Auto) 0.0 Lymph # (Auto) 1.6 [place] # (Auto) 1.5 H Eos # (Auto) 0.0 Baso # (Auto) 0.0 Abs Immat Gran (auto) 0.09 H Absolute Neuts (auto) 18.0 H Absolute Nucleated RBC 0.000 Nucleated RBC % (auto) 0.0 PT INR APTT VBG pH VBG pCO2 VBG pO2 VBG HCO3 VBG O2 Saturation VBG Base Excess Sodium 144 Potassium 2.4 L* D Chloride 103 Carbon Dioxide 26 Anion Gap 17 BUN 40 H Creatinine 0.81 Estim Creat Clear Calc 94.5 Estimated GFR > 60 POC Glucose 226 H Random Glucose 224 H Calcium 9.4 Phosphorus 2.3 L Magnesium 2.3 Total Bilirubin 1.1 H AST 33 H ALT 22 Alkaline Phosphatase 86 Total Protein 6.7 Albumin 3.7 Nasal Screen MRSA (PCR) Nasal S. aureus Screen Nasal MRSA/S.aureus Interp 03/31/23 05:51 WBC RBC Hgb Hct MCV MCH MCHC RDW Plt Count MPV Immature Gran % (Auto) Neut % (Auto) Lymph % (Auto) [place] % (Auto) Eos % (Auto) Baso % (Auto) Lymph # (Auto) [place] # (Auto) Eos # (Auto) Baso # (Auto) Abs Immat Gran (auto) Absolute Neuts (auto) Absolute Nucleated RBC Nucleated RBC % (auto) PT INR APTT VBG pH VBG pCO2 VBG pO2 VBG HCO3 VBG O2 Saturation VBG Base Excess Sodium Potassium Chloride Carbon Dioxide Anion Gap BUN Creatinine Estim Creat Clear Calc Estimated GFR POC Glucose 221 H Random Glucose Calcium Phosphorus Magnesium Total Bilirubin AST ALT Alkaline Phosphatase Total Protein Albumin Nasal Screen MRSA (PCR) Nasal S. aureus Screen Nasal MRSA/S.aureus Interp Microbiology Microbiology Results: Microbiology 03/30/23 09:13 Sputum - Suctioned Gram Stain - Final 03/30/23 09:13 Sputum - Suctioned Routine Culture - Preliminary Staphylococcus species 03/23/23 09:03 Blood - Venous Blood Culture - Final No growth after 5 days. 03/23/23 08:45 Blood - Venous Blood Culture - Final No growth after 5 days. Progress Note: A&P Assessment and plan (1) Obesity hypoventilation syndrome: Status: Acute (2) S/P percutaneous endoscopic gastrostomy (PEG) tube placement: Status: Acute (3) Status post tracheostomy: Status: Acute (4) Acute on chronic respiratory failure with hypoxia and hypercapnia: Status: Acute (5) Acute on chronic heart failure with preserved ejection fraction (HFpEF): Status: Acute (6) COPD (chronic obstructive pulmonary disease): Status: Acute (7) ATURUS (obstructive sleep apnea): Status: Acute Plan Assessment: Patient is a 62 Y F with morbid obesity, c/b OHS, TAURUS, COPD, CHF, c/b acute on chronic mixed respiratory failure, well-known to our institution, presenting with acute on chronic respiratory failure on 03/23, admitted floor, underwent empiric treatment for COPD, CHF exacerbations, though necessitating near constant AVAPS, likely representing end-stage lung disease, s/p trach/PEG Plan: N: tolerating new trach w/o anti-anxiety/anti-psychotics; insomnia, melatonin CV: CHF, diuresis, net negative 10L total since admission; given contraction metabolic alkalosis, to d/c bumetanide standing; to consider diuresis PRN; atrial fibrillation, previously on diltiazem gtt, now PO R: acute on chronic mixed respiratory failure d/t multiple comorbidities; s/p trach, on PS AM and PM, wean as tolerated GI: s/p PEG; NPO; tube feeds; diarrhea, possibly d/t new tube feeds : no acute issues H: atrial fibrillation, on apixaban ID: leukocytosis, fever; given recent trach exchange, admission, c/f aspiration pneumonia; empiric vancomycin, zosyn; sputum cultures growing staphylococcus, follow-up speciation E: diabetes mellitus; insulin regimen Quality Stroke Does the patient have a stroke diagnosis?: No VTE Prior VTE?: No VTE Risk Level:: Medical - moderate - high VTE Device Contraindication: Treatment Not Indicated VTE Drug Contraindication: N/A - Med Ordered
[2023-03-31 07:44] LABS: VBG Base Excess 5.4 mmol/L; VBG HCO3 28 mmol/L (22-26); VBG pCO2 36 mmHg; VBG pO2 57 mmHg
[2023-03-31] MEDS: methylPREDNISolone 4 MG TABLET 40 MG PO (07:48)
[2023-03-31] MEDS: Apixaban 5 MG TABLET PO ×2 (07:48→19:46)
[2023-03-31] MEDS: Albuterol Sulfate (0.083%) 2.5 MG/3 ML VIAL.NEB INHALE (07:48)
[2023-03-31] MEDS: Potassium Chloride Packet 20 MEQ PACKET 40 MEQ PO (07:49)
[2023-03-31] MEDS: acetaZOLAMIDE sodium 500 MG VIAL IVPUSH ×3 (07:49→22:30)
[2023-03-31] MEDS: Potassium Phosphate/NS 15 MMOL/250 ML PLAST..BAG 62.5 MMOL IV ×2 (07:50→11:57)
[2023-03-31] MEDS: 0.9 % Sodium Chloride Flush 3 ML SYRINGE IVFLUSH ×3 (07:51→22:31)
[2023-03-31 07:58] LABS: Vancomycin Random 17.7 mcg/mL (15-20)
[2023-03-31] MEDS: vancomycin HCL 1,000 MG in 0.9 % Sodium Chloride 250 ML 270 MG IV ×2 (08:00→19:54)
--- NOTE | 2023-03-31 08:54 | HE.PHANOTE ---
Vanco level 17.7, redraw lab tomorrow, auc ~552 per insight at 1000 mg q12h
[2023-03-31] MEDS: Lidocaine 4 % Patch ADH..PATCH 1 PATCH TRANSDERMA (09:16)
--- NOTE | 2023-03-31 10:53 | PM.EVENT ---
Event Note Date of Service: 03/31/23 Event Note: Patient now wake seems to communicate with eyes, and nodding off sedation no leak from the tracheostomy site abdomen soft tolerating PEG tube feeds doing well after peg and trach the rest of his management as per digital recruiter service Time Spent With Patient Time: Total time managing care of this patient today ____ minutes.
[2023-03-31 11:33] LABS: MRSA Nasal PCR POSITIVE (Negative); SA Nasal PCR POSITIVE (Negative)
[2023-03-31 11:57] LABS: Glucose, Whole Blood 360 mg/dL (60-115)
[2023-03-31 12:56] LABS: Venous Blood Gas Refer to POC result
[2023-03-31 18:22] LABS: Glucose, Whole Blood 390 mg/dL (60-115)
[2023-03-31] MEDS: Melatonin 3 MG TABLET 6 MG PO (19:46)
[2023-03-31] MEDS: Atorvastatin Calcium 80 MG TABLET PO (19:46)
[2023-03-31] MEDS: Insulin Glargine,Hum.rec.anlog 100 UNIT/ML 10 ML VIAL 35 UNIT SUBCUT (19:55)
[2023-03-31] MEDS: dilTIAZem HCL 50 MG/10 ML VIAL 10 MG IVPUSH (20:40)
[2023-04-01] VITALS (31 sets, daily range): BP systolic 112–145; BP diastolic 64–83; PULSE 88–127; RESP 8–21; TEMP 30.4–37.6; O2SAT 86–113; BMI 64.3
[2023-04-01] MEDS: dilTIAZem HCL 50 MG/10 ML VIAL 20 MG IVPUSH (00:21)
[2023-04-01] MEDS: Acetaminophen Oral Liquid 650 MG/20.3 ML SOLUTION 950 MG PO (00:24)
[2023-04-01] MEDS: Insulin Lispro 100 UNIT/ML 3 ML VIAL SUBCUT ×4 (00:39→18:12)
[2023-04-01 01:43] LABS: Glucose, Whole Blood 285 mg/dL (60-115)
--- NOTE | 2023-04-01 04:12 | PC.NURSE ---
Addendum entered by Bridger Vazquez RN 04/01/23 04:31: Titrated FiO2 to 30%, SpO2 92-93% Original Note: Assumed care at 23:00. Patient initially alert and appears oriented but assessment limited by patient's nonverbal status while on mechanical ventilation via # 8 Bivona (Portex) hyperflex at 13 cm. Communicated with in [place], and patient responds to questions with lip motion (understood via lipreading), and nods head yes/no to respond, moves all extremities, follows commands, engages the speaker, appears to have impaired coping. Patient can participate in turning, but is 3 assist for bed mobility. Patient afebrile. Tolerating ventilator settings PSV 10/6, minute volumes 5-6. Dim LS at bases to auscultation, SpO2 96-97, FiO2 was lowered by provider to 40% from 50%. Patient with mild hypertensive BPs with SBP in 140's. Telemetry shows afib, rate mostly 100-110, initially with some increases to the 120-130 BPM range and provider wrote order for one time dose of 20 mg IVP cardizem, administered with effect. Paient also reported pain to the LUQ abdomen, was 6/10 as per patient's gesticulations, and medicated with tylenol with effect, down to 0/10 good effect. Patient with Mo with UOP 40-100 cc/hr malathi urine. Rectal tube with liquid brown stool. Stage II to coccyx. surgical sites to abdomen and trach site.
[2023-04-01 04:36] LABS: VBG Base Excess 2.6 mmol/L; VBG HCO3 27 mmol/L (22-26); VBG pCO2 43 mmHg; VBG pH 7.41 (7.32-7.43); VBG pO2 71 mmHg
[2023-04-01 04:37] LABS: Venous Blood Gas Refer to POC result
[2023-04-01 04:56] LABS: MANUAL DIFF FLAG NO
[2023-04-01 04:58] LABS: Basophils Percent Auto 0.1 % (0-2); Hemoglobin 10.7 g/dl (12.0-16.0); Imm Gran Abs Auto 0.09 X10*3/uL (0.00-0.03); Imm Gran Pct Auto 0.5 % (0.0-0.4); Lymphocytes Absolute Auto 0.9 X10*3/uL (1.2-4.9); Mean Corpuscular HGB Conc 29.7 g/dl (31.0-35.0); Mean Corpuscular Hemoglobin 25.2 pg (27.0-33.0); Mean Corpuscular Volume 84.9 fL (80.0-98.0); Mean Platelet Volume 10.7 fL (9.4-12.3); Monocytes Absolute Auto 1.2 X10*3/uL (0.1-1.2); Monocytes Percent Auto 7.2 % (2-11); Neutrophils Percent Auto 87.2 % (45-73); Platelet Count 299 X10*3/uL (160-400); Red Blood Count 4.24 X10*6/uL (4.20-5.50); Red Cell Distribution Width 16.4 % (11.0-16.0); White Blood Count 17.3 X10*3/uL (4.8-10.8)
[2023-04-01 05:08] LABS: Vancomycin Random 20.4 mcg/mL (15-20)
[2023-04-01 05:16] LABS: Alanine Aminotransferase 22 U/L (0-31); Albumin Level 3.4 g/dL (3.5-5.0); Alkaline Phosphatase 86 U/L (39-117); Anion Gap 15 (12-20); Aspartate Amino Transferase 14 U/L (5-31); Bilirubin Total 0.5 mg/dL (0.0-1.0); Blood Urea Nitrogen 33 mg/dL (9-16); Calcium 9.4 mg/dL (8.4-10.2); Carbon Dioxide 24 mmol/L (22-29); Chloride 111 mmol/L (96-108); Creatinine Clr Calc Pharmacy 95.8; Estimated Glomerular Filt Rate > 60; Glucose Random 306 mg/dL (60-115); Magnesium 2.2 mg/dL (1.6-2.6); Potassium 2.9 mmol/L (3.3-5.1); Sodium 147 mmol/L (135-145); Total Protein 6.3 g/dL (6.5-8.0)
[2023-04-01] MEDS: Piperacillin Sodium/Tazobactam 4.5 GM in 0.9 % Sodium Chloride 100 ML IV (05:47)
[2023-04-01 05:50] LABS: Glucose, Whole Blood 291 mg/dL (60-115)
[2023-04-01] MEDS: dilTIAZem HCL 60 MG TABLET 120 MG PO ×3 (05:55→21:35)
--- NOTE | 2023-04-01 06:19 | P.PNCC_ITS ---
Subjective Subjective Date of Service: 04/01/23 Interval History: 62-year-old morbidly obese female with chronic atrial fibrillation and severe underlying COPD who presents almost weekly with acute on chronic hypercarbic and of course hypoxic respiratory failure and also background of diastolic CHF is on apixaban chronically for AFib prophylaxis diltiazem for heart rate control she has a an insulin-requiring type 2 diabetic and with this last exacerbation it was decided to go ahead with tracheostomy which was performed she has a 8. In there and the today was noted to have a little bit increase in her heart rate known no significant increase in her effort of breathing but clearly increasingly hypoxic and needed the FiO2 raised and her atrial fibrillation rate was increasing so I had concerns about mechanical difference between the lungs and sure enough almost the entire left lung is atelectatic with mediastinal shift to the left and so essentially were aerating just the root the right lung I do not see a left mainstem so I assume that this is an aspiration issue and therefore I am going to reinstate the DuoNebs but with Mucomyst and pulmonary toileting and if that is not successful comfortably at least between now in and the morning consideration for bronchoscopy Critical Care Time (minutes): 45 Physical Exam 2 Vital Signs: Vital Signs: Last Vital Signs Temp 98.4 F 04/01/23 04:00 Pulse 101 H 04/01/23 04:00 Resp 11 L 04/01/23 04:00 BP 143/79 H 04/01/23 04:00 Pulse Ox 96 04/01/23 04:00 O2 Del Method Mechanical Ventil ation 04/01/23 04:00 O2 Flow Rate 50 03/26/23 18:53 FiO2 40 04/01/23 04:00 BMI result Body Mass Index 62.7 no significant respiratory effort not diaphragmatic not accessory muscle but definitely increased A-a gradient and definitely diminished breath sounds in the left side and chest x-rays consistent with left lung atelectasis atrial fibrillation heart rate now better controlled ever since digoxin was given it is averaging between 90 in 100 and the oxygen saturation is up to 90% with pressure of 130/80 abdomen soft no organomegaly and tolerating feedings no significant neck vein distension no significant peripheral edema Objective Data Labs 04/01/23 04:31 04/01/23 04:31 Labs: Laboratory Results - last 24 hr 03/30/23 03/31/23 03/31/23 15:50 07:38 07:39 WBC RBC Hgb Hct MCV MCH MCHC RDW Plt Count MPV Immature Gran % (Auto) Neut % (Auto) Lymph % (Auto) [place] % (Auto) Eos % (Auto) Baso % (Auto) Lymph # (Auto) [place] # (Auto) Eos # (Auto) Baso # (Auto) Abs Immat Gran (auto) Absolute Neuts (auto) Absolute Nucleated RBC Nucleated RBC % (auto) VBG pH 7.50 H VBG pCO2 36 VBG pO2 57 VBG HCO3 28 H VBG O2 Saturation 86.0 VBG Base Excess 5.4 Sodium Potassium Chloride Carbon Dioxide Anion Gap BUN Creatinine Estim Creat Clear Calc Estimated GFR POC Glucose Random Glucose Calcium Phosphorus Magnesium Total Bilirubin AST ALT Alkaline Phosphatase Total Protein Albumin Nasal Screen MRSA (PCR) POSITIVE A Nasal S. aureus Screen POSITIVE A Nasal MRSA/S.aureus Interp SEE NOTE Random Vancomycin 17.7 03/31/23 03/31/23 04/01/23 11:51 18:19 00:29 WBC RBC Hgb Hct MCV MCH MCHC RDW Plt Count MPV Immature Gran % (Auto) Neut % (Auto) Lymph % (Auto) [place] % (Auto) Eos % (Auto) Baso % (Auto) Lymph # (Auto) [place] # (Auto) Eos # (Auto) Baso # (Auto) Abs Immat Gran (auto) Absolute Neuts (auto) Absolute Nucleated RBC Nucleated RBC % (auto) VBG pH VBG pCO2 VBG pO2 VBG HCO3 VBG O2 Saturation VBG Base Excess Sodium Potassium Chloride Carbon Dioxide Anion Gap BUN Creatinine Estim Creat Clear Calc Estimated GFR POC Glucose 360 H* 390 H* 285 H Random Glucose Calcium Phosphorus Magnesium Total Bilirubin AST ALT Alkaline Phosphatase Total Protein Albumin Nasal Screen MRSA (PCR) Nasal S. aureus Screen Nasal MRSA/S.aureus Interp Random Vancomycin 04/01/23 04/01/23 04/01/23 04:30 04:31 05:39 WBC 17.3 H RBC 4.24 Hgb 10.7 L Hct 36.0 L MCV 84.9 MCH 25.2 L MCHC 29.7 L RDW 16.4 H Plt Count 299 MPV 10.7 Immature Gran % (Auto) 0.5 H Neut % (Auto) 87.2 H Lymph % (Auto) 5.0 L [place] % (Auto) 7.2 Eos % (Auto) 0.0 Baso % (Auto) 0.1 Lymph # (Auto) 0.9 L [place] # (Auto) 1.2 Eos # (Auto) 0.0 Baso # (Auto) 0.0 Abs Immat Gran (auto) 0.09 H Absolute Neuts (auto) 15.0 H Absolute Nucleated RBC 0.000 Nucleated RBC % (auto) 0.0 VBG pH 7.41 VBG pCO2 43 VBG pO2 71 VBG HCO3 27 H VBG O2 Saturation 93.0 VBG Base Excess 2.6 Sodium 147 H Potassium 2.9 L D Chloride 111 H Carbon Dioxide 24 Anion Gap 15 BUN 33 H Creatinine 0.80 Estim Creat Clear Calc 95.8 Estimated GFR > 60 POC Glucose 291 H Random Glucose 306 H Calcium 9.4 Phosphorus 3.0 Magnesium 2.2 Total Bilirubin 0.5 AST 14 ALT 22 Alkaline Phosphatase 86 Total Protein 6.3 L Albumin 3.4 L Nasal Screen MRSA (PCR) Nasal S. aureus Screen Nasal MRSA/S.aureus Interp Random Vancomycin 20.4 H Microbiology Microbiology Results: Microbiology 03/30/23 09:13 Sputum - Suctioned Gram Stain - Final 03/30/23 09:13 Sputum - Suctioned Routine Culture - Preliminary Staphylococcus species 03/23/23 09:03 Blood - Venous Blood Culture - Final No growth after 5 days. 03/23/23 08:45 Blood - Venous Blood Culture - Final No growth after 5 days. Progress Note: A&P Assessment and plan (1) Obesity hypoventilation syndrome: Status: Acute (2) S/P percutaneous endoscopic gastrostomy (PEG) tube placement: Status: Acute (3) Status post tracheostomy: Status: Acute (4) Acute on chronic diastolic heart failure: Status: Acute (5) Atrial fibrillation with RVR: Status: Acute (6) Metabolic encephalopathy: Status: Acute (7) Acute on chronic respiratory failure with hypoxia and hypercapnia: Status: Acute (8) Acute on chronic heart failure with preserved ejection fraction (HFpEF): Status: Acute (9) Atrial fibrillation, new onset: Status: Acute (10) Hypercapnia: Status: Acute (11) Acute on chronic respiratory failure with hypoxemia: Status: Acute (12) Obesity: Status: Acute (13) Diastolic CHF: Status: Acute (14) COPD (chronic obstructive pulmonary disease): Status: Acute (15) TAURUS (obstructive sleep apnea): Status: Acute (16) Oxygen dependent: Status: Acute (17) Cor pulmonale (chronic): Status: Acute (18) Atelectasis of left lung: Status: Acute (19) Aspiration into lower respiratory tract: Status: Acute Plan so the plan is for aggressive pulmonary toileting with Mucomyst in combination with bronchodilator therapy and and if need be is a backup plan bronchoscopy with lavage Quality Stroke Does the patient have a stroke diagnosis?: No VTE Prior VTE?: No VTE Risk Level:: Medical - moderate - high VTE Device Contraindication: Treatment Not Indicated VTE Drug Contraindication: N/A - Med Ordered
[2023-04-01] MEDS: Potassium Chloride Packet 20 MEQ PACKET 40 MEQ PO ×2 (06:52→10:32)
[2023-04-01] MEDS: Caspofungin Acetate 70 MG in 0.9 % Sodium Chloride 250 ML 250 MG IV (08:37)
[2023-04-01] MEDS: vancomycin HCL 1,000 MG in 0.9 % Sodium Chloride 250 ML 270 MG IV (08:37)
[2023-04-01] MEDS: Lidocaine 4 % Patch ADH..PATCH 1 PATCH TRANSDERMA (08:37)
[2023-04-01] MEDS: Insulin Glargine,Hum.rec.anlog 100 UNIT/ML 10 ML VIAL 35 UNIT SUBCUT ×2 (08:38→21:34)
[2023-04-01] MEDS: 0.9 % Sodium Chloride Flush 3 ML SYRINGE IVFLUSH ×3 (08:41→21:53)
[2023-04-01] MEDS: Apixaban 5 MG TABLET PO ×2 (08:42→21:54)
--- NOTE | 2023-04-01 09:32 | MHC.CLN ---
F/U PT RECEIVING JEVITY 1.0 AT MAX GOAL RATE 40ML/HR WITH 240ML FREE WATER FLUSHES Q 6 HRS TO PROVIDE 1017KCALS (25KCALS/KG BASED ON IBW), 42G PROTEIN (1.02G/KG), 1762ML TOTAL WATER FROM FORMULA AND FLUSHES (43ML/KG) MONITOR TOLERANCE, RESIDUALS AND LYTES RECOMMEND ADDING 30ML PROSOURCE TO PROMOTE WOUND HEALING
[2023-04-01] MEDS: Digoxin 0.25 MG TABLET 0.5 MG PO (11:19)
[2023-04-01 11:58] LABS: Glucose, Whole Blood 219 mg/dL (60-115)
--- NOTE | 2023-04-01 13:28 | MHC.CM.PN ---
Pt continues care in ICU: on ventilatory support via size 8 trach. Per MD, goals of care are for trach mask trials in 1-2 days as pt is making good clinical progress. Clinical updates sent to [facility] for consideration. CM to follow
[2023-04-01] MEDS: Chlorhexidine Gluc Oral Rinse 15 ML MOUTHWASH BUCCAL ×2 (15:38→21:35)
[2023-04-01] MEDS: Albuterol/Iprat 2.5/0.5MG 3 ML AMPUL.NEB INHALE ×2 (16:05→20:42)
[2023-04-01] MEDS: Acetylcysteine 10 % 400 MG/4 ML VIAL INHALE ×2 (16:06→20:42)
[2023-04-01 18:04] LABS: Glucose, Whole Blood 202 mg/dL (60-115)
[2023-04-01 19:57] LABS: Vancomycin Random 16.6 mcg/mL (15-20)
[2023-04-01 20:44] LABS: Anion Gap 12 (12-20); Blood Urea Nitrogen 22 mg/dL (9-16); Calcium 9.3 mg/dL (8.4-10.2); Carbon Dioxide 25 mmol/L (22-29); Chloride 115 mmol/L (96-108); Creatinine Clr Calc Pharmacy 120.1; Estimated Glomerular Filt Rate > 60; Glucose Random 160 mg/dL (60-115); Potassium 3.4 mmol/L (3.3-5.1); Sodium 149 mmol/L (135-145)
[2023-04-01] MEDS: Atorvastatin Calcium 80 MG TABLET PO (21:35)
[2023-04-01] MEDS: vancomycin HCL 1,000 MG in 0.9 % Sodium Chloride 250 ML 250 MG IV (21:52)
[2023-04-01 23:45] LABS: Glucose, Whole Blood 150 mg/dL (60-115)
[2023-04-02] VITALS (30 sets, daily range): BP systolic 116–158; BP diastolic 63–98; PULSE 74–116; RESP 10–25; TEMP 34.5–37.3; O2SAT 90–99; BMI 63.1
--- NOTE | 2023-04-02 00:51 | PC.NURSE ---
ASSUMED CARE OF PT AT 1900. PT ON PRESSURE SUPPORT VENT SETTINGS AT THAT TIME BUT SWITCHED AT APPROX 2200 TO PRESSURE CONTROL VENT SETTINGS TIDAL VOLUMES DROPPED AND PT STARTING TO DESAT TO 80'S. PT IMPROVED ON THESE SETTINGS. SHE WAS ALERT AND FOLLOWING COMMANDS AND NODDING APPROPRIATELY. NOW SHE IS MOSTLY SLEEPING. SHE IS VERY WEAK AND NOT RESTRAINED BUT DOES NOT REACH UP TO TRACH. BP STABLE. MONITOR SHOWS AFIB, HR NOW 97-110'S. WAS UP TO 120'S-130'S JUST BEFORE SCHEDULED DOSE OF CARDIZEM WAS DUE. SPOKE TO PROVIDER KERRY ABOUT HR. WILL WATCH AND IF SUSTAINED 120'S-130'S, WILL CONSIDER DOSE OF DIGOXIN. U/O 20-40 ML/HR AND PROVIDER AWARE OF BORDERLINE OUTPUT.
[2023-04-02 04:39] LABS: VBG Base Excess 2.2 mmol/L; VBG HCO3 26 mmol/L (22-26); VBG pCO2 39 mmHg; VBG pH 7.43 (7.32-7.43); VBG pO2 48 mmHg
[2023-04-02 05:01] LABS: MANUAL DIFF FLAG NO
[2023-04-02 05:02] LABS: Basophils Percent Auto 0.1 % (0-2); Eosinophils Absolute Auto 0.1 X10*3/uL (0.0-0.4); Eosinophils Percent Auto 0.8 % (0-4); Hematocrit 34.3 % (37.0-47.0); Hemoglobin 10.3 g/dl (12.0-16.0); Imm Gran Abs Auto 0.05 X10*3/uL (0.00-0.03); Imm Gran Pct Auto 0.4 % (0.0-0.4); Lymphocytes Absolute Auto 1.3 X10*3/uL (1.2-4.9); Lymphocytes Percent Auto 9.8 % (20-40); Mean Corpuscular Hemoglobin 25.6 pg (27.0-33.0); Mean Corpuscular Volume 85.1 fL (80.0-98.0); Mean Platelet Volume 10.8 fL (9.4-12.3); Monocytes Percent Auto 8.1 % (2-11); Neutrophils Absolute Auto 10.4 x10*3/uL (2.0-8.3); Neutrophils Percent Auto 80.8 % (45-73); Platelet Count 302 X10*3/uL (160-400); Red Blood Count 4.03 X10*6/uL (4.20-5.50); Red Cell Distribution Width 16.3 % (11.0-16.0); White Blood Count 12.9 X10*3/uL (4.8-10.8)
[2023-04-02 05:18] LABS: Albumin Level 3.3 g/dL (3.5-5.0); Anion Gap 15 (12-20); Blood Urea Nitrogen 21 mg/dL (9-16); Calcium 9.2 mg/dL (8.4-10.2); Carbon Dioxide 23 mmol/L (22-29); Chloride 112 mmol/L (96-108); Estimated Glomerular Filt Rate > 60; Glucose Random 186 mg/dL (60-115); Magnesium 2.1 mg/dL (1.6-2.6); Phosphorus 2.9 mg/dL (2.7-4.5); Potassium 3.7 mmol/L (3.3-5.1); Sodium 146 mmol/L (135-145)
[2023-04-02 05:24] LABS: Venous Blood Gas Refer to POC result
[2023-04-02] MEDS: Insulin Lispro 100 UNIT/ML 3 ML VIAL SUBCUT ×3 (05:51→18:08)
[2023-04-02] MEDS: dilTIAZem HCL 60 MG TABLET 120 MG PO ×3 (05:53→21:36)
[2023-04-02] MEDS: Albuterol/Iprat 2.5/0.5MG 3 ML AMPUL.NEB INHALE ×4 (07:28→19:16)
[2023-04-02] MEDS: Acetylcysteine 10 % 400 MG/4 ML VIAL INHALE ×4 (07:28→19:16)
[2023-04-02] MEDS: vancomycin HCL 1,000 MG in 0.9 % Sodium Chloride 250 ML 250 MG IV (08:03)
[2023-04-02] MEDS: Chlorhexidine Gluc Oral Rinse 15 ML MOUTHWASH BUCCAL ×3 (08:03→21:36)
[2023-04-02] MEDS: Apixaban 5 MG TABLET PO ×2 (08:04→21:37)
[2023-04-02] MEDS: Lidocaine 4 % Patch ADH..PATCH 1 PATCH TRANSDERMA (08:04)
[2023-04-02] MEDS: Digoxin 0.25 MG TABLET PO (08:04)
[2023-04-02] MEDS: Insulin Glargine,Hum.rec.anlog 100 UNIT/ML 10 ML VIAL 35 UNIT SUBCUT ×2 (08:04→21:37)
[2023-04-02] MEDS: 0.9 % Sodium Chloride Flush 3 ML SYRINGE IVFLUSH ×3 (08:04→21:53)
[2023-04-02 11:19] LABS: Glucose, Whole Blood 232 mg/dL (60-115)
--- NOTE | 2023-04-02 14:32 | HO.WOUND ---
Wound Consult: Initial 62yr old female admitted to [facility] on 03/23/23 14:24? - See progress notes and H&P for detailed history. Coccyx Etiology: MASD (Moisture Associated Skin Damage) - IAD and Intertrigo (Incontinence Associated Dermatitis) Measurements: 3cm x 0.2cm x 0.1cm Wound Bed: Linear attached edges partial thickness tissue loss at the base of the gluteal fold Drainage / Odor: None noted at the time of my assessment Edges: ? Linear and attached Radha wound: ? Hyperpigmented tissue with mirrored edges indicative of chronic moisture No Induration, No Fluctuance, No Erythema, No Warmth Pain: Denies Goals of Treatment: ? Off Load Pressure - Protect from friction and moisture with barrier cream and foam dressing This wound bed is not consistent with pressure injury - the linear wound along the base of the fold is indicative of Moisture related injury not pressure. Trach Periwound MASD noted - however hydrocolloid in place and adherent to tissue - not ready for removal at this time. Unable to assess wound bed at time of my consult will follow up later this week for assessment. Recommendations: 1. Turn and Reposition every 2 hours and as needed for patient comfort consider use of wedges available iat the bedside. 2. Off Load all bony prominences with use of pillows, wedges and or heel boots. 3. Monitor for incontinence and moisture control. 4. Provide adequate and supplemental nutrition. 5. Continue low air loss mattress. 6. Maintain blood glucose levels per Providers orders. 7. Coccyx - Intergluteal area - Off Load Pressure - Cleanse with PH balance spray, pat dry. ?Apply thin layer of barrier cream to wound bed. Reapply thin layer PRN after each episode of incontinence. Cover with Foam dressing. Peel back and assess Q shift and chaange every 2 days and PRN. Re-consult wound care Nurse for wound deterioration or wound changes.
--- NOTE | 2023-04-02 17:10 | PM.CCPN ---
Subjective Subjective Date of Service: 04/02/23 Interval History: 62-year-old morbidly obese diabetic female with a multitude of admissions with repeated of acute on chronic hypercarbic respiratory failure this time resulting in tracheostomy and PEG tube placement tolerating feedings and actually on very low pressure support and doing beautifully with excellent tidal volumes minimal FiO2 requirement and minimal minute ventilation requirement markedly improved since we started Mucomyst and aggressive pulmonary toileting with re-expansion of her left lung and relaxation of the atelectasis so were getting very close to trach collar at this point Critical Care Time (minutes): 35 Physical Exam Vital Signs: Vital Signs: Last Vital Signs Temp 98.4 F 04/02/23 16:00 Pulse 106 H 04/02/23 16:00 Resp 13 04/02/23 16:00 BP 150/89 H 04/02/23 16:00 Pulse Ox 93 04/02/23 16:00 O2 Del Method Mechanical Ventil ation 04/02/23 16:00 O2 Flow Rate 50 03/26/23 18:53 FiO2 40 04/02/23 16:00 BMI result Body Mass Index 63.1 controlled atrial fibrillation rate 100 oxygen saturation 98% pressure 156 systolic and she has diminished breath sounds bilaterally bedside echo with preserved LV function abdomen is obese but no tenderness no organomegaly and feedings are tolerated positive intake output for the last 48 hours but was very negative for the prior several days and all told does not seem to be hypervolemic at all and because of a mild persistent hypernatremia I still believe we might still be mildly total body fluid depleted Objective Data Labs 04/02/23 04:26 04/02/23 04:26 Labs: Laboratory Results - last 24 hr 04/01/23 04/01/23 04/01/23 18:00 19:07 20:22 WBC RBC Hgb Hct MCV MCH MCHC RDW Plt Count MPV Immature Gran % (Auto) Neut % (Auto) Lymph % (Auto) [place] % (Auto) Eos % (Auto) Baso % (Auto) Lymph # (Auto) [place] # (Auto) Eos # (Auto) Baso # (Auto) Abs Immat Gran (auto) Absolute Neuts (auto) Absolute Nucleated RBC Nucleated RBC % (auto) VBG pH VBG pCO2 VBG pO2 VBG HCO3 VBG O2 Saturation VBG Base Excess Sodium 149 H Potassium 3.4 Chloride 115 H Carbon Dioxide 25 Anion Gap 12 BUN 22 H Creatinine 0.65 Estim Creat Clear Calc 120.1 Estimated GFR > 60 POC Glucose 202 H Random Glucose 160 H Calcium 9.3 Phosphorus Magnesium Albumin Random Vancomycin 16.6 04/01/23 04/02/23 04/02/23 23:35 04:26 04:26 WBC 12.9 H RBC 4.03 L Hgb 10.3 L Hct 34.3 L MCV 85.1 MCH 25.6 L MCHC 30.0 L RDW 16.3 H Plt Count 302 MPV 10.8 Immature Gran % (Auto) 0.4 Neut % (Auto) 80.8 H Lymph % (Auto) 9.8 L [place] % (Auto) 8.1 Eos % (Auto) 0.8 Baso % (Auto) 0.1 Lymph # (Auto) 1.3 [place] # (Auto) 1.0 Eos # (Auto) 0.1 Baso # (Auto) 0.0 Abs Immat Gran (auto) 0.05 H Absolute Neuts (auto) 10.4 H Absolute Nucleated RBC 0.000 Nucleated RBC % (auto) 0.0 VBG pH VBG pCO2 VBG pO2 VBG HCO3 VBG O2 Saturation VBG Base Excess Sodium 146 H Potassium 3.7 Chloride 112 H Carbon Dioxide 23 Anion Gap 15 BUN 21 H Creatinine Cancelled 0.64 Estim Creat Clear Calc Cancelled Estimated GFR POC Glucose 150 H Random Glucose Calcium Phosphorus Magnesium Albumin Random Vancomycin 04/02/23 04/02/23 04/02/23 04:26 04:26 04:33 WBC RBC Hgb Hct MCV MCH MCHC RDW Plt Count MPV Immature Gran % (Auto) Neut % (Auto) Lymph % (Auto) [place] % (Auto) Eos % (Auto) Baso % (Auto) Lymph # (Auto) [place] # (Auto) Eos # (Auto) Baso # (Auto) Abs Immat Gran (auto) Absolute Neuts (auto) Absolute Nucleated RBC Nucleated RBC % (auto) VBG pH 7.43 VBG pCO2 39 VBG pO2 48 VBG HCO3 26 VBG O2 Saturation 79.0 VBG Base Excess 2.2 Sodium Potassium Chloride Carbon Dioxide Anion Gap BUN Creatinine Estim Creat Clear Calc 122.0 Estimated GFR Cancelled > 60 POC Glucose Random Glucose 186 H Calcium 9.2 Phosphorus 2.9 Magnesium 2.1 Albumin 3.3 L Random Vancomycin 04/02/23 11:12 WBC RBC Hgb Hct MCV MCH MCHC RDW Plt Count MPV Immature Gran % (Auto) Neut % (Auto) Lymph % (Auto) [place] % (Auto) Eos % (Auto) Baso % (Auto) Lymph # (Auto) [place] # (Auto) Eos # (Auto) Baso # (Auto) Abs Immat Gran (auto) Absolute Neuts (auto) Absolute Nucleated RBC Nucleated RBC % (auto) VBG pH VBG pCO2 VBG pO2 VBG HCO3 VBG O2 Saturation VBG Base Excess Sodium Potassium Chloride Carbon Dioxide Anion Gap BUN Creatinine Estim Creat Clear Calc Estimated GFR POC Glucose 232 H Random Glucose Calcium Phosphorus Magnesium Albumin Random Vancomycin Microbiology Microbiology Results: Microbiology 03/30/23 09:13 Sputum - Suctioned Gram Stain - Final 03/30/23 09:13 Sputum - Suctioned Routine Culture - Final Methicillin Res Staph Aureus 03/23/23 09:03 Blood - Venous Blood Culture - Final No growth after 5 days. 03/23/23 08:45 Blood - Venous Blood Culture - Final No growth after 5 days. Progress Note: A&P Assessment and plan (1) Aspiration into lower respiratory tract: Status: Acute (2) Atelectasis of left lung: Status: Acute (3) Obesity hypoventilation syndrome: Status: Acute (4) S/P percutaneous endoscopic gastrostomy (PEG) tube placement: Status: Acute (5) Status post tracheostomy: Status: Acute (6) Acute on chronic diastolic heart failure: Status: Acute (7) Atrial fibrillation with RVR: Status: Acute (8) Metabolic encephalopathy: Status: Acute (9) Acute on chronic respiratory failure with hypoxia and hypercapnia: Status: Acute (10) Acute on chronic heart failure with preserved ejection fraction (HFpEF): Status: Acute (11) Atrial fibrillation, new onset: Status: Acute (12) Hypercapnia: Status: Acute (13) Acute on chronic respiratory failure with hypoxemia: Status: Acute (14) Obesity: Status: Acute (15) Diastolic CHF: Status: Acute (16) COPD (chronic obstructive pulmonary disease): Status: Acute (17) TAURUS (obstructive sleep apnea): Status: Acute (18) Oxygen dependent: Status: Acute (19) Cor pulmonale (chronic): Status: Acute Plan so the plan is to continue right now with pressure support as she is tolerating beautifully continue the PEG tube feedings and continue to wean towards trach Quality Stroke Does the patient have a stroke diagnosis?: No VTE Prior VTE?: No VTE Risk Level:: Medical - moderate - high VTE Device Contraindication: Treatment Not Indicated VTE Drug Contraindication: N/A - Med Ordered
[2023-04-02 18:02] LABS: Glucose, Whole Blood 202 mg/dL (60-115)
[2023-04-02 21:25] LABS: Vancomycin Random 13.9 mcg/mL (15-20)
[2023-04-02] MEDS: Atorvastatin Calcium 80 MG TABLET PO (21:37)
[2023-04-02] MEDS: vancomycin HCL 1,250 MG in 0.9 % Sodium Chloride 250 ML 166.67 MG IV (21:50)
[2023-04-03] VITALS (29 sets, daily range): BP systolic 110–160; BP diastolic 69–108; PULSE 76–101; RESP 9–25; TEMP 28.6–37; O2SAT 93–99; BMI 63.4
[2023-04-03 00:49] LABS: Glucose, Whole Blood 146 mg/dL (60-115)
[2023-04-03 04:42] LABS: VBG Base Excess 4.5 mmol/L; VBG HCO3 28 mmol/L (22-26); VBG pCO2 39 mmHg; VBG pH 7.46 (7.32-7.43); VBG pO2 57 mmHg
[2023-04-03 05:09] LABS: MANUAL DIFF FLAG NO
[2023-04-03 05:11] LABS: Basophils Percent Auto 0.1 % (0-2); Eosinophils Absolute Auto 0.3 X10*3/uL (0.0-0.4); Eosinophils Percent Auto 2.3 % (0-4); Hematocrit 34.5 % (37.0-47.0); Hemoglobin 10.3 g/dl (12.0-16.0); Imm Gran Abs Auto 0.08 X10*3/uL (0.00-0.03); Imm Gran Pct Auto 0.6 % (0.0-0.4); Lymphocytes Absolute Auto 1.5 X10*3/uL (1.2-4.9); Lymphocytes Percent Auto 10.9 % (20-40); Mean Corpuscular HGB Conc 29.9 g/dl (31.0-35.0); Mean Corpuscular Hemoglobin 25.5 pg (27.0-33.0); Mean Corpuscular Volume 85.4 fL (80.0-98.0); Mean Platelet Volume 12.1 fL (9.4-12.3); Monocytes Percent Auto 7.2 % (2-11); Neutrophils Absolute Auto 10.8 x10*3/uL (2.0-8.3); Neutrophils Percent Auto 78.9 % (45-73); Platelet Count 314 X10*3/uL (160-400); Red Blood Count 4.04 X10*6/uL (4.20-5.50); Red Cell Distribution Width 16.3 % (11.0-16.0); White Blood Count 13.7 X10*3/uL (4.8-10.8)
[2023-04-03 05:28] LABS: Albumin Level 3.1 g/dL (3.5-5.0); Anion Gap 13 (12-20); Blood Urea Nitrogen 16 mg/dL (9-16); Calcium 9.1 mg/dL (8.4-10.2); Carbon Dioxide 24 mmol/L (22-29); Chloride 109 mmol/L (96-108); Estimated Glomerular Filt Rate > 60; Glucose Random 207 mg/dL (60-115); Phosphorus 2.9 mg/dL (2.7-4.5); Potassium 3.7 mmol/L (3.3-5.1); Sodium 142 mmol/L (135-145)
[2023-04-03] MEDS: dilTIAZem HCL 60 MG TABLET 120 MG PO ×3 (05:52→21:34)
[2023-04-03 06:07] LABS: Venous Blood Gas Refer to POC result
[2023-04-03] MEDS: Insulin Lispro 100 UNIT/ML 3 ML VIAL SUBCUT ×3 (06:18→18:10)
[2023-04-03] MEDS: Chlorhexidine Gluc Oral Rinse 15 ML MOUTHWASH BUCCAL ×3 (07:50→20:36)
[2023-04-03] MEDS: 0.9 % Sodium Chloride Flush 3 ML SYRINGE IVFLUSH ×3 (07:50→21:37)
[2023-04-03] MEDS: Insulin Glargine,Hum.rec.anlog 100 UNIT/ML 10 ML VIAL 35 UNIT SUBCUT ×2 (07:50→20:36)
[2023-04-03] MEDS: Digoxin 0.25 MG TABLET PO (07:50)
[2023-04-03] MEDS: Apixaban 5 MG TABLET PO ×2 (07:50→20:36)
[2023-04-03] MEDS: Lidocaine 4 % Patch ADH..PATCH 1 PATCH TRANSDERMA (07:51)
[2023-04-03] MEDS: Albuterol/Iprat 2.5/0.5MG 3 ML AMPUL.NEB INHALE ×4 (07:54→19:45)
--- NOTE | 2023-04-03 09:28 | P.PNCC_ITS ---
Subjective Subjective Date of Service: 04/03/23 Interval History: 62-year-old morbidly obese type 2 diabetic female with longstanding and many many repeated hospitalizations for acute on chronic hypercarbic respiratory failure finally coming to tracheostomy and PEG tube and doing very well with that we had to get a an extra long because of the amount of soft tissue between the neck and the stoma that had to be traversed but she is doing well suction secretions re-expanded a complete left lung atelectasis wean FiO2 down to a minimal of 30% with minimal minute ventilation requirements and she last all day on minimal pressure support she starts to get a little bit weaker towards night at bedtime and then we use put her back on per on pressure control with a little more support and I think today regard to try run a trach mask with think were getting close to possibly sending her out to a long-term acute care tolerating her PEG tube feedings both clinically and by chest x-ray looks like we have a resolving Staph look coccal pneumonitis Critical Care Time (minutes): 30 Physical Exam 2 Vital Signs: Vital Signs: Last Vital Signs Temp 96.3 F L 04/03/23 09:00 Pulse 88 04/03/23 09:00 Resp 15 04/03/23 09:00 BP 130/85 04/03/23 09:00 Pulse Ox 97 04/03/23 09:00 O2 Del Method Mechanical Ventil ation 04/03/23 09:00 O2 Flow Rate 50 03/26/23 18:53 FiO2 30 04/03/23 09:00 BMI result Body Mass Index 63.4 she is awake and alert conversational bedside echo with preserved LV function diminished bilateral breath sounds but no adventitious sounds although she has got a little bit of an obstructive airway pattern on the end-tidal CO2 her no audible wheezing Abdomen obese but soft with no organomegaly and tolerating oral feedings Objective Data Labs 04/03/23 04:36 04/03/23 04:36 Labs: Laboratory Results - last 24 hr 04/02/23 04/02/23 04/02/23 11:12 17:54 21:00 WBC RBC Hgb Hct MCV MCH MCHC RDW Plt Count MPV Immature Gran % (Auto) Neut % (Auto) Lymph % (Auto) [place] % (Auto) Eos % (Auto) Baso % (Auto) Lymph # (Auto) [place] # (Auto) Eos # (Auto) Baso # (Auto) Abs Immat Gran (auto) Absolute Neuts (auto) Absolute Nucleated RBC Nucleated RBC % (auto) VBG pH VBG pCO2 VBG pO2 VBG HCO3 VBG O2 Saturation VBG Base Excess Sodium Potassium Chloride Carbon Dioxide Anion Gap BUN Creatinine Estim Creat Clear Calc Estimated GFR POC Glucose 232 H 202 H Random Glucose Calcium Phosphorus Magnesium Albumin Random Vancomycin 13.9 L 04/03/23 04/03/23 04/03/23 00:46 04:36 04:36 WBC 13.7 H RBC 4.04 L Hgb 10.3 L Hct 34.5 L MCV 85.4 MCH 25.5 L MCHC 29.9 L RDW 16.3 H Plt Count 314 MPV 12.1 Immature Gran % (Auto) 0.6 H Neut % (Auto) 78.9 H Lymph % (Auto) 10.9 L [place] % (Auto) 7.2 Eos % (Auto) 2.3 Baso % (Auto) 0.1 Lymph # (Auto) 1.5 [place] # (Auto) 1.0 Eos # (Auto) 0.3 Baso # (Auto) 0.0 Abs Immat Gran (auto) 0.08 H Absolute Neuts (auto) 10.8 H Absolute Nucleated RBC 0.000 Nucleated RBC % (auto) 0.0 VBG pH 7.46 H VBG pCO2 39 VBG pO2 57 VBG HCO3 28 H VBG O2 Saturation 88.0 VBG Base Excess 4.5 Sodium 142 Potassium 3.7 Chloride 109 H Carbon Dioxide 24 Anion Gap 13 BUN 16 Creatinine Cancelled 0.55 Estim Creat Clear Calc Cancelled Estimated GFR POC Glucose 146 H Random Glucose Calcium Phosphorus Magnesium Albumin Random Vancomycin 04/03/23 04/03/23 04:36 04:36 WBC RBC Hgb Hct MCV MCH MCHC RDW Plt Count MPV Immature Gran % (Auto) Neut % (Auto) Lymph % (Auto) [place] % (Auto) Eos % (Auto) Baso % (Auto) Lymph # (Auto) [place] # (Auto) Eos # (Auto) Baso # (Auto) Abs Immat Gran (auto) Absolute Neuts (auto) Absolute Nucleated RBC Nucleated RBC % (auto) VBG pH VBG pCO2 VBG pO2 VBG HCO3 VBG O2 Saturation VBG Base Excess Sodium Potassium Chloride Carbon Dioxide Anion Gap BUN Creatinine Estim Creat Clear Calc 140.0 Estimated GFR Cancelled > 60 POC Glucose Random Glucose 207 H Calcium 9.1 Phosphorus 2.9 Magnesium 2.0 Albumin 3.1 L Random Vancomycin Microbiology Microbiology Results: Microbiology 03/30/23 09:13 Sputum - Suctioned Gram Stain - Final 03/30/23 09:13 Sputum - Suctioned Routine Culture - Final Methicillin Res Staph Aureus 03/23/23 09:03 Blood - Venous Blood Culture - Final No growth after 5 days. 03/23/23 08:45 Blood - Venous Blood Culture - Final No growth after 5 days. Progress Note: A&P Assessment and plan (1) Aspiration into lower respiratory tract: Status: Acute (2) Atelectasis of left lung: Status: Acute (3) Obesity hypoventilation syndrome: Status: Acute (4) S/P percutaneous endoscopic gastrostomy (PEG) tube placement: Status: Acute (5) Status post tracheostomy: Status: Acute (6) Acute on chronic diastolic heart failure: Status: Acute (7) Atrial fibrillation with RVR: Status: Acute (8) Metabolic encephalopathy: Status: Acute (9) Acute on chronic respiratory failure with hypoxia and hypercapnia: Status: Acute (10) Acute on chronic heart failure with preserved ejection fraction (HFpEF): Status: Acute (11) Atrial fibrillation, new onset: Status: Acute (12) Hypercapnia: Status: Acute (13) Acute on chronic respiratory failure with hypoxemia: Status: Acute (14) Obesity: Status: Acute (15) Diastolic CHF: Status: Acute (16) COPD (chronic obstructive pulmonary disease): Status: Acute (17) TAURUS (obstructive sleep apnea): Status: Acute (18) Oxygen dependent: Status: Acute (19) Cor pulmonale (chronic): Status: Acute Plan truly doing well with clinical resolution of staphylococcal pneumonitis and tolerating almost homeopathic levels of a pressure support and then potentially move on to a trach mask for her at which point I think will qualify for long- term acute care atrial fibrillation rate is stable at about 95-100 and oxygen sats are 97% blood pressure 150 systolic Quality Stroke Does the patient have a stroke diagnosis?: No VTE Prior VTE?: No VTE Risk Level:: Medical - moderate - high VTE Device Contraindication: Treatment Not Indicated VTE Drug Contraindication: N/A - Med Ordered
--- NOTE | 2023-04-03 09:36 | MHC.CLN ---
F/U PT RECEIVING JEVITY 1.0 AT MAX GOAL RATE 40ML/HR WITH 30ML PROSOURCE Q DAY AND 240ML FREE WATER FLUSHES Q 6 HRS TO PROVIDE 1077KCALS (26KCALS/KG BASED ON IBW), 57G PROTEIN (1.4G/KG), 1762ML TOTAL WATER FROM FORMULA AND FLUSHES (43ML/KG) MONITOR TOLERANCE, RESIDUALS AND LYTES RECOMMEND DECREASING FREE WATER FLUSHES TO 120ML Q 6 HRS TO PROVIDE 1282ML TOTAL FROM FORMULA AND FLUSHES (31ML/KG)
[2023-04-03] MEDS: vancomycin HCL 1,250 MG in 0.9 % Sodium Chloride 250 ML 166.67 MG IV (10:54)
--- NOTE | 2023-04-03 11:07 | MHC.CM.PN ---
EMR reviewed. Pt remains in ICU, not medically cleared for dc at this time. Updates sent to [employer]. will continue to follow.
[2023-04-03 12:02] LABS: Glucose, Whole Blood 218 mg/dL (60-115)
[2023-04-03 18:06] LABS: Glucose, Whole Blood 168 mg/dL (60-115)
--- NOTE | 2023-04-03 19:29 | PC.NURSE ---
Patient placed on Trach mask FiO2 28% this am, tolerating well. Suctioned for edwards/white sputum via trach. On turning bed, repositioned every 2 hours. VAP precautions per protocol. + cough + gag. at bedside. Receving IV abx. Afebrile. 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 Plan to discharge to [facility] when medically ready. Spoke with Dr Day about d/c gorman catheter, would like to keep in and reevaluate tomorrow, infectious disease nurse updated via [employer].
[2023-04-03] MEDS: Atorvastatin Calcium 80 MG TABLET PO (20:36)
[2023-04-03 20:57] LABS: Glucose, Whole Blood 144 mg/dL (60-115)
[2023-04-03 21:10] LABS: Vancomycin Random 16.6 mcg/mL (15-20)
[2023-04-03] MEDS: Melatonin 3 MG TABLET 6 MG PO (21:34)
[2023-04-03] MEDS: vancomycin HCL 1,250 MG in 0.9 % Sodium Chloride 250 ML 166.66 MG IV (21:34)
[2023-04-03] MEDS: Acetaminophen Oral Liquid 650 MG/20.3 ML SOLUTION PO (21:34)
[2023-04-04] VITALS (29 sets, daily range): BP systolic 113–172; BP diastolic 76–107; PULSE 71–108; RESP 9–106; TEMP 35.9–37; O2SAT 92–100; BMI 63.9
[2023-04-04 04:43] LABS: VBG HCO3 31 mmol/L (22-26); VBG pCO2 47 mmHg; VBG pH 7.42 (7.32-7.43); VBG pO2 60 mmHg
[2023-04-04 04:49] LABS: Venous Blood Gas Refer to POC result
[2023-04-04 05:41] LABS: MANUAL DIFF FLAG NO
[2023-04-04 05:47] LABS: Basophils Percent Auto 0.2 % (0-2); Eosinophils Absolute Auto 0.6 X10*3/uL (0.0-0.4); Eosinophils Percent Auto 4.2 % (0-4); Hematocrit 35.7 % (37.0-47.0); Hemoglobin 10.6 g/dl (12.0-16.0); Imm Gran Pct Auto 0.8 % (0.0-0.4); Lymphocytes Absolute Auto 1.2 X10*3/uL (1.2-4.9); Lymphocytes Percent Auto 8.7 % (20-40); Mean Corpuscular HGB Conc 29.7 g/dl (31.0-35.0); Mean Corpuscular Hemoglobin 25.4 pg (27.0-33.0); Mean Corpuscular Volume 85.4 fL (80.0-98.0); Mean Platelet Volume 11.6 fL (9.4-12.3); Monocytes Absolute Auto 1.1 X10*3/uL (0.1-1.2); Monocytes Percent Auto 8.4 % (2-11); Neutrophils Absolute Auto 10.3 x10*3/uL (2.0-8.3); Neutrophils Percent Auto 77.7 % (45-73); Platelet Count 373 X10*3/uL (160-400); Red Blood Count 4.18 X10*6/uL (4.20-5.50); Red Cell Distribution Width 16.5 % (11.0-16.0); White Blood Count 13.2 X10*3/uL (4.8-10.8)
[2023-04-04 06:06] LABS: Albumin Level 3.1 g/dL (3.5-5.0); Anion Gap 15 (12-20); Blood Urea Nitrogen 12 mg/dL (9-16); Carbon Dioxide 26 mmol/L (22-29); Chloride 106 mmol/L (96-108); Creatinine Clr Calc Pharmacy 131.1; Estimated Glomerular Filt Rate > 60; Glucose Random 194 mg/dL (60-115); Phosphorus 3.2 mg/dL (2.7-4.5); Potassium 3.5 mmol/L (3.3-5.1); Sodium 143 mmol/L (135-145)
[2023-04-04] MEDS: dilTIAZem HCL 60 MG TABLET 120 MG PO ×3 (06:14→21:27)
[2023-04-04] MEDS: Insulin Lispro 100 UNIT/ML 3 ML VIAL SUBCUT ×3 (06:14→23:55)
[2023-04-04] MEDS: Albuterol/Iprat 2.5/0.5MG 3 ML AMPUL.NEB INHALE ×4 (07:36→20:33)
[2023-04-04] MEDS: 0.9 % Sodium Chloride Flush 3 ML SYRINGE IVFLUSH ×3 (08:06→21:28)
[2023-04-04] MEDS: Apixaban 5 MG TABLET PO ×2 (08:13→21:27)
[2023-04-04] MEDS: Digoxin 0.25 MG TABLET PO (08:13)
[2023-04-04] MEDS: Chlorhexidine Gluc Oral Rinse 15 ML MOUTHWASH BUCCAL ×2 (08:13→14:36)
[2023-04-04] MEDS: Insulin Glargine,Hum.rec.anlog 100 UNIT/ML 10 ML VIAL 35 UNIT SUBCUT ×2 (08:14→21:27)
[2023-04-04 12:24] LABS: Glucose, Whole Blood 178 mg/dL (60-115)
--- NOTE | 2023-04-04 14:33 | MHC.CM.PN ---
Addendum entered by Donna Oviedo 04/04/23 15:41: Messages left w/Sun Irizarry, RN, Mary Diamond, RN and Curtis Amador RN to ensure expedited LTAC authorization request. Original Note: Pt has made sufficient progress to transfer to LTAC for continued care. [facility] has accepted pt and has gone for [facility] authorization. CM met w/interpreting, pt and pt's spouse to review 04/05 d/c. Pt has been set up to transfer at 9am via [facility]. Tr Abdullahi from [facility] will accompany pt d/t her unique trach flange. ICU MD and RN aware of plan. Med nec on pt's chart.
--- NOTE | 2023-04-04 14:44 | PM.CCPN ---
Subjective Subjective Date of Service: 04/04/23 Interval History: 62-year-old morbidly obese type 2 diabetic female with history of chronic atrial fibrillation as well as diastolic CHF and has had with 1 of many many repeated emergent visits for altered mental status and dyspnea on the basis of acute on chronic hypercarbic/hypoxic respiratory failure becoming completely AVAPS dependent on the noninvasive ventilator and 1 week ago finally came to tracheostomy and PEG tube placement which she she has been doing beautifully with and for 48 hours she has been continuously on a trach mask and she has been tolerating her feedings with without difficulty no metabolic problems and she did have a very good overall diuresis possibly a little bit of over diuresis so we have allowed her reaccumulate a little bit of fluid 95% with no respiratory effort all pressures are running about 160 systolic she had a a nosocomial methicillin resistant Staph aureus pneumonia which she has been treated 1 week on vancomycin for and she has gotten over that completely sober stopping vancomycin as of today following 7 days of treatment she is 90 from producing secretions and she is practically on an FiO2 consistent with room air Critical Care Time (minutes): 35 Physical Exam Vital Signs: Vital Signs: Last Vital Signs Temp 96.9 F 04/04/23 09:00 Pulse 88 04/04/23 14:43 Resp 18 04/04/23 14:43 BP 140/83 H 04/04/23 14:00 Pulse Ox 97 04/04/23 14:00 O2 Del Method Trach Collar 04/04/23 14:00 O2 Flow Rate 50 03/26/23 18:53 FiO2 28 04/04/23 14:00 BMI result Body Mass Index 63.9 Vital signs stable and she is awake alert and nonfocal neurologically Bedside cardiac exam with preserved LV systolic function Abdomen soft with no organomegaly Objective Data Labs 04/05/23 04:49 04/05/23 04:49 Labs: Laboratory Results - last 24 hr 04/03/23 04/03/23 04/03/23 18:02 20:19 20:45 WBC RBC Hgb Hct MCV MCH MCHC RDW Plt Count MPV Immature Gran % (Auto) Neut % (Auto) Lymph % (Auto) [place] % (Auto) Eos % (Auto) Baso % (Auto) Lymph # (Auto) [place] # (Auto) Eos # (Auto) Baso # (Auto) Abs Immat Gran (auto) Absolute Neuts (auto) Absolute Nucleated RBC Nucleated RBC % (auto) VBG pH VBG pCO2 VBG pO2 VBG HCO3 VBG O2 Saturation VBG Base Excess Sodium Potassium Chloride Carbon Dioxide Anion Gap BUN Creatinine Estim Creat Clear Calc Estimated GFR POC Glucose 168 H 144 H Random Glucose Calcium Phosphorus Magnesium Albumin Random Vancomycin 16.6 04/04/23 04/04/23 04/04/23 04:34 04:37 12:21 WBC 13.2 H RBC 4.18 L Hgb 10.6 L Hct 35.7 L MCV 85.4 MCH 25.4 L MCHC 29.7 L RDW 16.5 H Plt Count 373 MPV 11.6 Immature Gran % (Auto) 0.8 H Neut % (Auto) 77.7 H Lymph % (Auto) 8.7 L [place] % (Auto) 8.4 Eos % (Auto) 4.2 H Baso % (Auto) 0.2 Lymph # (Auto) 1.2 [place] # (Auto) 1.1 Eos # (Auto) 0.6 H Baso # (Auto) 0.0 Abs Immat Gran (auto) 0.10 H Absolute Neuts (auto) 10.3 H Absolute Nucleated RBC 0.000 Nucleated RBC % (auto) 0.0 VBG pH 7.42 VBG pCO2 47 VBG pO2 60 VBG HCO3 31 H VBG O2 Saturation 86.0 VBG Base Excess 6.0 Sodium 143 Potassium 3.5 Chloride 106 Carbon Dioxide 26 Anion Gap 15 BUN 12 Creatinine 0.59 Estim Creat Clear Calc 131.1 Estimated GFR > 60 POC Glucose 178 H Random Glucose 194 H Calcium 9.0 Phosphorus 3.2 Magnesium 2.0 Albumin 3.1 L Random Vancomycin Microbiology Microbiology Results: Microbiology 03/30/23 09:13 Sputum - Suctioned Gram Stain - Final 03/30/23 09:13 Sputum - Suctioned Routine Culture - Final Methicillin Res Staph Aureus 03/23/23 09:03 Blood - Venous Blood Culture - Final No growth after 5 days. 03/23/23 08:45 Blood - Venous Blood Culture - Final No growth after 5 days. Progress Note: A&P Assessment and plan (1) Aspiration into lower respiratory tract: Status: Acute (2) Atelectasis of left lung: Status: Acute (3) Obesity hypoventilation syndrome: Status: Acute (4) S/P percutaneous endoscopic gastrostomy (PEG) tube placement: Status: Acute (5) Status post tracheostomy: Status: Acute (6) Acute on chronic diastolic heart failure: Status: Acute (7) Atrial fibrillation with RVR: Status: Acute (8) Metabolic encephalopathy: Status: Acute (9) Acute on chronic respiratory failure with hypoxia and hypercapnia: Status: Acute (10) Acute on chronic heart failure with preserved ejection fraction (HFpEF): Status: Acute (11) Atrial fibrillation, new onset: Status: Acute (12) Hypercapnia: Status: Acute (13) Acute on chronic respiratory failure with hypoxemia: Status: Acute (14) Obesity: Status: Acute (15) Diastolic CHF: Status: Acute (16) COPD (chronic obstructive pulmonary disease): Status: Acute (17) TAURUS (obstructive sleep apnea): Status: Acute (18) Oxygen dependent: Status: Acute (19) Cor pulmonale (chronic): Status: Acute Plan Doing beautifully and we have applied for transfer to long-term acute care facility just waiting for acceptance based on the adjustable flange I am going to restore some maintenance combination of diuretics as the accumulation of 3rd space fluid E ventrally does contribute to her overall work of breathing Quality Stroke Does the patient have a stroke diagnosis?: No VTE Prior VTE?: No VTE Risk Level:: Medical - moderate - high VTE Device Contraindication: Treatment Not Indicated VTE Drug Contraindication: N/A - Med Ordered
[2023-04-04] MEDS: vancomycin HCL 1,250 MG in 0.9 % Sodium Chloride 250 ML 166.67 MG IV (15:16)
--- NOTE | 2023-04-04 15:36 | HO.WOUND ---
Wound Consult: Follow up 62yr old female admitted [place] [facility] [place] 03[place]23/23 14:24- See progress notes and H&P for detailed history. Todays follow up for trach assessment prior to discharge to facility tomorrow 04/05/23. Sutures not ready for removal per direct care team - when ready remove for easier cleansing and application of gauze for moisture management. Trach Site Etiology: Trach Incision Wound Bed: There is a small area of moist tissue along the incision line. Sutures intact two small areas of pucker noted. Pt has copious amount of secretions likely impacting incision. No split gauze in place at this time. Recommend Trach care per protocol and apply split gauze under trach to aid in secretions absorption which will likely aid in incision healing. Trach plate sutures remain in place. See Photo. Drainage / Odor: dried serosanginous drainage noted in peristomal area - after cleansing observed clear drainage vs secretions Edges: ? well approximated with one small area of moist tissue 0.1cm x 0.8cm x 0.1cm Radha wound: ? Intact dry tissue No Induration, No Fluctuance, Mild Erythema noted to be expected Pain: pt denies pain but expressed not liking the trach site assessed Goals of Treatment: ? Moisture management and routine trach care. Recommendations: 1. Turn and Reposition every 2 hours and as needed for patient comfort consider use of wedges encouraged. 2. Off Load all bony prominences with use of pillows, wedges and heel boots. 3. Monitor for incontinence and moisture control. 4. Provide adequate and supplemental nutrition. 5. Continue low air loss mattress. 6. Maintain blood glucose levels per Providers orders. 7. Coccyx - Intergluteal area - Off Load Pressure - Cleanse with PH balance spray, pat dry. ?Apply thin layer of barrier cream to wound bed. Reapply thin layer PRN after each episode of incontinence. Cover with Foam dressing. Peel back and assess Q shift and change every 2 days and PRN. 8. Trach - Provide trach care per protocol - cleanse well apply split gauze underneath trach plate to allow for secretion absorption. If incision line continues to be of concern may apply cut to size Durafibe AG (Hydrofiber) covered and secured in place with cut to fit Hydrocolloid. Change every 2-3 days and PRN. Re-consult wound care Nurse for wound deterioration or wound changes.
--- NOTE | 2023-04-04 17:15 | HE.PHANOTE ---
SVEN APARICIO HAD TO CHANGE TIME TO 1500 AND 0300 BECAUSE PT LOST IV ACCESS. NEXT LEVEL DUE 04/05 @1300 LACHO
[2023-04-04 17:55] LABS: Glucose, Whole Blood 129 mg/dL (60-115)
--- NOTE | 2023-04-04 17:58 | PC.NURSE ---
gorman removed 18:00. Purewick catheter placed. Pt DTV 00:00 04/05/2023
[2023-04-04 21:26] LABS: Glucose, Whole Blood 139 mg/dL (60-115)
[2023-04-04] MEDS: Atorvastatin Calcium 80 MG TABLET PO (21:27)
[2023-04-04 23:55] LABS: Glucose, Whole Blood 156 mg/dL (60-115)
[2023-04-05] VITALS (27 sets, daily range): BP systolic 135–174; BP diastolic 76–108; PULSE 63–101; RESP 8–20; TEMP 36–36.7; O2SAT 89–100; BMI 63.5
[2023-04-05] MEDS: vancomycin HCL 1,250 MG in 0.9 % Sodium Chloride 250 ML 166.67 MG IV (03:32)
[2023-04-05 04:58] LABS: MANUAL DIFF FLAG NO
[2023-04-05 04:59] LABS: VBG Base Excess 10.9 mmol/L; VBG HCO3 36 mmol/L (22-26); VBG pCO2 51 mmHg; VBG pH 7.45 (7.32-7.43); VBG pO2 45 mmHg
[2023-04-05 05:00] LABS: Venous Blood Gas Refer to POC result
[2023-04-05 05:00] LABS: Basophils Percent Auto 0.2 % (0-2); Eosinophils Absolute Auto 0.6 X10*3/uL (0.0-0.4); Eosinophils Percent Auto 4.6 % (0-4); Hematocrit 34.6 % (37.0-47.0); Hemoglobin 10.4 g/dl (12.0-16.0); Imm Gran Abs Auto 0.12 X10*3/uL (0.00-0.03); Imm Gran Pct Auto 0.9 % (0.0-0.4); Lymphocytes Absolute Auto 1.4 X10*3/uL (1.2-4.9); Lymphocytes Percent Auto 10.6 % (20-40); Mean Corpuscular HGB Conc 30.1 g/dl (31.0-35.0); Mean Corpuscular Hemoglobin 25.2 pg (27.0-33.0); Mean Corpuscular Volume 83.8 fL (80.0-98.0); Mean Platelet Volume 10.6 fL (9.4-12.3); Monocytes Percent Auto 7.9 % (2-11); Neutrophils Percent Auto 75.8 % (45-73); Platelet Count 422 X10*3/uL (160-400); Red Blood Count 4.13 X10*6/uL (4.20-5.50); Red Cell Distribution Width 16.5 % (11.0-16.0); White Blood Count 13.2 X10*3/uL (4.8-10.8)
[2023-04-05 05:16] LABS: Anion Gap 11 (12-20); Blood Urea Nitrogen 11 mg/dL (9-16); Calcium 9.1 mg/dL (8.4-10.2); Carbon Dioxide 29 mmol/L (22-29); Chloride 107 mmol/L (96-108); Creatinine Clr Calc Pharmacy 138.8; Estimated Glomerular Filt Rate > 60; Glucose Random 186 mg/dL (60-115); Magnesium 1.9 mg/dL (1.6-2.6); Phosphorus 3.5 mg/dL (2.7-4.5); Potassium 3.7 mmol/L (3.3-5.1); Sodium 143 mmol/L (135-145)
[2023-04-05] MEDS: Insulin Lispro 100 UNIT/ML 3 ML VIAL SUBCUT (05:24)
[2023-04-05] MEDS: dilTIAZem HCL 60 MG TABLET 120 MG PO ×3 (05:24→20:49)
[2023-04-05] MEDS: Digoxin 0.25 MG TABLET PO (08:00)
[2023-04-05] MEDS: Apixaban 5 MG TABLET PO ×2 (08:00→20:49)
[2023-04-05] MEDS: 0.9 % Sodium Chloride Flush 3 ML SYRINGE IVFLUSH ×2 (08:00→16:15)
[2023-04-05] MEDS: Insulin Glargine,Hum.rec.anlog 100 UNIT/ML 10 ML VIAL 35 UNIT SUBCUT ×2 (08:00→20:44)
[2023-04-05] MEDS: Chlorhexidine Gluc Oral Rinse 15 ML MOUTHWASH BUCCAL ×3 (08:00→20:49)
--- NOTE | 2023-04-05 08:38 | P.DS_ITS ---
DS: Providers Provider Date of Service: 04/05/23 Date of admission: 03/23/23 14:24 Date of discharge: 04/05/23 Primary care physician: Dolores Dubois MD Admitting clinician: Rylee Culp Attending physician on admission: Rylee Culp Consults: 03/23/23 14:24 Consult to Cardiology [place]ine [place] [facility] [place] Reason for consultation: afib rvr 03/27/23 09:45 Consult to General Surgery Routine Consulting [place] [facility] [place] Reason for consultation: Acute on Chronic Respiratory Failure, Possible Trach/PEG Has provider been notified: No 04/01/23 15:19 Consult to Pulmonology Routine Consulting Provider: Dariel Day Reason for consultation: atelectatic left lung Has provider been notified: Yes 04/02/23 09:23 Consult to Wound Care Routine Reason for consultation: Multiple Skin Integrity Concerns Attending physician on discharge: Dariel Day Discharging clinician: Dariel Day DS: Transfer Hospital Acceptance Reason for Transfer: Status post tracheostomy and PEG tube placement Name of Facility: [facility] DS: Diagnosis Discharge Diagnosis (1) Aspiration into lower respiratory tract: Status: Acute (2) Atelectasis of left lung: Status: Acute (3) Obesity hypoventilation syndrome: Status: Acute (4) S/P percutaneous endoscopic gastrostomy (PEG) tube placement: Status: Acute (5) Status post tracheostomy: Status: Acute (6) Acute on chronic diastolic heart failure: Status: Acute (7) Atrial fibrillation with RVR: Status: Acute (8) Metabolic encephalopathy: Status: Acute (9) Acute on chronic respiratory failure with hypoxia and hypercapnia: Status: Acute (10) Acute on chronic heart failure with preserved ejection fraction (HFpEF): Status: Acute (11) Atrial fibrillation, new onset: Status: Acute (12) Hypercapnia: Status: Acute (13) Acute on chronic respiratory failure with hypoxemia: Status: Acute (14) Obesity: Status: Acute (15) Diastolic CHF: Status: Acute (16) COPD (chronic obstructive pulmonary disease): Status: Acute (17) TAURUS (obstructive sleep apnea): Status: Acute (18) Oxygen dependent: Status: Acute (19) Cor pulmonale (chronic): Status: Acute DS: Summary Hospital Course Hospital Course: Admitted to the hospitalist service initially found to be a ton did with marked acute hypercarbic respiratory failure requiring BiPAP on an AVAPS mode in order to generate adequate minute ventilation required to relieve the acute hypercapnia and she woke up appropriately and at that point it was clear in relation to her very advanced stage of COPD and the obesity/hypoventilation as well as obstructive sleep apnea where at the very least she was CPAP dependent, that at this point it was necessary to proceed with tracheostomy both she and her agree with the plan PEG tube was placed also until her swallow capability is restored Along the way for since the tracheostomy she did have nearly complete left lung atelectasis there was clearly some secretion problem in the left mainstem bronchus which we cleared toileting, CPT and utilization of Mucomyst and bronchodilators we completely re-expanded the lung and the secondary MRSA infection cleared and she had received 1 week of IV vancomycin been continuously afebrile no secretions FiO2 is 25% tolerating trach mask at this point with pCO2 is between 47 and 51 strictly on her own no positive-pressure requirements Status at Discharge Cognitive/behavioral status at discharge: Excellent cognition Functional status at discharge: bed bound Overall status at discharge: patient is back to baseline Time Spent with Patient Time attestation: Total time managing care of this patient today _30___ minutes. Discharge coordination time: Greater than 30 minutes Quality: Safe Use of Opioids Does Pt have an Active Cancer Diagnosis on the Problem List?: No Quality: Stroke Does the patient have a stroke diagnosis?: No Physical Exam Vital Signs: Vital Signs: Last Vital Signs Temp 97.5 F 04/05/23 07:59 Pulse 83 04/05/23 07:59 Resp 15 04/05/23 07:59 BP 157/100 H 04/05/23 07:59 Pulse Ox 94 04/05/23 07:59 O2 Del Method Trach Collar 04/05/23 07:59 O2 Flow Rate 5 04/04/23 23:00 FiO2 28 04/05/23 07:59 BMI result Body Mass Index 63.5 Excellent vital signs Bedside echo with perfectly preserved LV function Controlled persistent atrial fibrillation rate 80 Abdomen soft no organomegaly Diminished bilateral breath sounds but no significant respiratory effort DS: Data Data Completed and Pending Completed studies during hospitalization [Text1]: Procedures Assistance with Respiratory Ventilation, Less than 24 Consecutive Hours, Continuous Positive Airway Pressure (02/11/23) Insertion of Endotracheal Airway into Trachea, Via Natural or Artificial Opening (04/06/22) Insertion of Infusion Device into Superior Vena Cava, Percutaneous Approach (04/06/22) Introduction of Remdesivir Anti-infective into Peripheral Vein, Percutaneous Approach, [employer] (02/11/23) Introduction of Vasopressor into Central Vein, Percutaneous Approach (04/06/22) Respiratory Ventilation, 24-96 Consecutive Hours (04/06/22) Ultrasonography of Superior Vena Cava, Guidance (04/06/22) Labs on day of discharge: Laboratory Results - last 24 hr 04/04/23 04/04/23 04/04/23 12:21 17:51 21:22 WBC RBC Hgb Hct MCV MCH MCHC RDW Plt Count MPV Immature Gran % (Auto) Neut % (Auto) Lymph % (Auto) Sumner % (Auto) Eos % (Auto) Baso % (Auto) Lymph # (Auto) Sumner # (Auto) Eos # (Auto) Baso # (Auto) Abs Immat Gran (auto) Absolute Neuts (auto) Absolute Nucleated RBC Nucleated RBC % (auto) VBG pH VBG pCO2 VBG pO2 VBG HCO3 VBG O2 Saturation VBG Base Excess Sodium Potassium Chloride Carbon Dioxide Anion Gap BUN Creatinine Estim Creat Clear Calc Estimated GFR POC Glucose 178 H 129 H 139 H Random Glucose Calcium Phosphorus Magnesium Albumin 04/04/23 04/05/23 04/05/23 23:50 04:49 04:53 WBC 13.2 H RBC 4.13 L Hgb 10.4 L Hct 34.6 L MCV 83.8 MCH 25.2 L MCHC 30.1 L RDW 16.5 H Plt Count 422 H MPV 10.6 Immature Gran % (Auto) 0.9 H Neut % (Auto) 75.8 H Lymph % (Auto) 10.6 L Sumner % (Auto) 7.9 Eos % (Auto) 4.6 H Baso % (Auto) 0.2 Lymph # (Auto) 1.4 Sumner # (Auto) 1.0 Eos # (Auto) 0.6 H Baso # (Auto) 0.0 Abs Immat Gran (auto) 0.12 H Absolute Neuts (auto) 10.0 H Absolute Nucleated RBC 0.000 Nucleated RBC % (auto) 0.0 VBG pH 7.45 H VBG pCO2 51 VBG pO2 45 VBG HCO3 36 H VBG O2 Saturation 73.0 VBG Base Excess 10.9 Sodium 143 Potassium 3.7 Chloride 107 Carbon Dioxide 29 Anion Gap 11 L BUN 11 Creatinine 0.56 Estim Creat Clear Calc 138.8 Estimated GFR > 60 POC Glucose 156 H Random Glucose 186 H Calcium 9.1 Phosphorus 3.5 Magnesium 1.9 Albumin 3.0 L Discharge Plan Discharge Anticipated Discharge Date/Time: 04/05/23 10:46 Patient Disposition: Xfer Acute Care Hospital Discharge Diagnosis: Acute/chronic hypercarbic/hypoxic respiratory failure Referrals: Physician,Unknown J [Physician] - 1 Week Discharge Medications: Continued acetaminophen [Tylenol 8 Hour] 650 mg tablet extended release 650 mg PO Q8H PRN (Reason: pain) 30 Days Qty: 90 11RF amlodipine 10 mg tablet 10 mg PO DAILY 90 Days Qty: 90 1RF metformin 1,000 mg tablet 1,000 mg PO BID Qty: 180 0RF fluticasone propionate [Flonase Allergy Relief] 50 mcg/actuation spray,suspension 1 spray intranasal DAILY PRN (Reason: Allergy Symptoms) Qty: 16 0RF Rx Instructions: administer into each nostril albuterol sulfate [Ventolin HFA] 90 mcg/actuation HFA aerosol inhaler 2 puff PO Q6H PRN (Reason: for wheezing) 30 Days Qty: 18 1RF albuterol sulfate 2.5 mg /3 mL (0.083 %) solution for nebulization 2.5 mg inhalation Q4-6H PRN (Reason: for wheezing) 30 Days Qty: 75 3RF atorvastatin 80 mg tablet 80 mg PO BEDTIME 90 Days Qty: 90 2RF Trulicity 0.75 mg/0.5 mL pen injector 0.75 mg subcut TU@1430 diltiazem HCl [Cardizem CD] 180 mg Capsule,Extended Release 24hr 360 mg PO DAILY Qty: 30 0RF Protocol: Hold for SBP/HR < HOLD for SBP < : 90 HOLD for HR < : 60 Eliquis 5 mg Tablet 5 mg PO BID Qty: 60 0RF insulin lispro 100 unit/mL Insulin Pen 1 sliding scale dose SUBCUT USEASDIRECTD Rx Instructions: SLIDING SCALE QID spironolactone 25 mg Tablet 25 mg PO DAILY sennosides [Senna Lax] 8.6 mg tablet 17.2 mg PO BID PRN (Reason: constipation) bumetanide 1 mg tablet 1 mg PO BID 30 Days Qty: 60 6RF potassium chloride 20 mEq packet 20 meq PO DAILY 30 Days Qty: 30 6RF No Action (DME) underpads [Bed Underpads] Pad See Rx Instructions .Route Qty: 40 6RF Rx Instructions: As directed (DME) wipes standard See Rx Instructions .Route .MEDSUPPLY Qty: 200 11RF Rx Instructions: As directed (DME) AeroEclipse II Nebulizer Misc See Rx Instructions .Route Qty: 1 0RF Rx Instructions: As directed (DME) adult diapers pull-ups XXL See Rx Instructions .Route .MEDSUPPLY Qty: 200 11RF Rx Instructions: As directed (DME) insulin syringe-needle U-100 [BD Insulin Syringe Ultra-Fine] 0.3 mL 31 gauge x 5/16 syringe See Rx Instructions .Route Qty: 400 3RF Rx Instructions: Use 1 syringe four times a day (DME) FreeStyle Kiya 2 Sensor Kit See Rx Instructions .Route Qty: 1 12RF Rx Instructions: As directed (DME) FreeStyle Kiya 2 Crawley Misc See Rx Instructions .Route Qty: 1 0RF Rx Instructions: As directed (DME) pen needle, diabetic [Easy Comfort Pen Stanton] 31 gauge x 5/16 needle See Rx Instructions .Route Qty: 100 2RF Rx Instructions: As directed (DME) pen needle, diabetic 32 gauge x 5/16 needle See Rx Instructions .Route Qty: 100 0RF Rx Instructions: As directed (DME) pen needle, diabetic [Pen Needle] 31 gauge x 5/16 needle See Rx Instructions .Route Qty: 50 0RF Rx Instructions: As directed thiamine HCl (vitamin B1) 100 mg Tablet 100 mg PO DAILY Discharge Orders: Discharge Order (Routine); Ordered 04/05/23 Ordered By: Dariel Day Activity on Discharge: As tolerated Stand Alone Forms: Patient Portal Discharge page Care Plan Goals: There will be a switch to a permanent tracheostomy along with evaluations of swallow capability to allow episcopalian of diet other than by gastric tube and then hopefully physical rehabilitation to restore some degree of ambulatory status Be mindful of a chosen combination of diuretics which may intermittently require Diamox to try to maintain an even intake and output Health Concerns: Periodic follow-up venous blood gas to be sure that were maintaining pCO2 in a more comfortable chronic range Patient and family need to be to be taught responsibly how to clean and care for tracheostomy and quit mint Plan of Treatment: Continuous bronchodilator therapy and pulmonary toileting maintain of even intake and output fluid balance Assessment: Given her weight and prolonged periods of time in bed be wary of her skin alexander ecially since she will not have a Mo catheter
[2023-04-05] MEDS: Albuterol/Iprat 2.5/0.5MG 3 ML AMPUL.NEB INHALE ×4 (08:39→19:16)
--- NOTE | 2023-04-05 09:32 | MHC.CLN ---
F/U REVIEWED LABS PT RECEIVING JEVITY 1.0 AT MAX GOAL RATE 40ML/HR WITH 30ML PROSOURCE Q DAY AND 120ML FREE WATER FLUSHES Q 6 HRS TO PROVIDE 1077KCALS (26KCALS/KG BASED ON IBW), 57G PROTEIN (1.4G/KG), 1282ML TOTAL WATER FROM FORMULA AND FLUSHES (31ML/KG) MONITOR TOLERANCE, RESIDUALS AND LYTES
--- NOTE | 2023-04-05 11:39 | PC.RT ---
spoke with case management regarding pt discharged to day to [facility]. As of 11:40am today, we are still waiting for Authorization. Respiratory and standby for transport but only available until 3pm today. If pt does not go by 3pm, then we will not be able to go with ambulance service. We will have to reschedule for tomorrow and also we have authorization. I do have an RT who is willing to go tomorrow on transport.
[2023-04-05 12:01] LABS: Glucose, Whole Blood 139 mg/dL (60-115)
[2023-04-05] MEDS: Bumetanide 1 MG TABLET PO (12:58)
[2023-04-05] MEDS: Spironolactone 25 MG TABLET PO (12:58)
--- NOTE | 2023-04-05 13:09 | MHC.CM.PN ---
Addendum entered by Nadia Morris 04/05/23 15:01: DC RESCHEDULED FOR 04/06/23 AT 12 NOON VIA ALS TRANSPORT [facility]IA [facility]. RN AWARE. AWARE. RESPIRATORY THERAPY AWARE AND WILL PLAN TO ACCOMPANY PT AT THAT TIME. [facility] LIAISON UPDATED Original Note: DP: PT HAS BEEN MEDICALLY CLEARED FOR DC TO [facility] VIA ALS TRANSPORT WITH RESPIRATORY THERAPIST ACCOMPANYING. RN AWARE. MD AWARE. INSURANCE AUTH HAS BEEN OBTAINED BY [facility] AND CLEARED FOR ADMISSION. HCP AWARE AND WILL FOLLOW TO CENTER. ALS TRANSPORT BOOKED [facility]IA [facility] AT 1 PM.
[2023-04-05 18:04] LABS: Glucose, Whole Blood 104 mg/dL (60-115)
[2023-04-05] MEDS: Atorvastatin Calcium 80 MG TABLET PO (20:49)
[2023-04-06] VITALS (15 sets, daily range): BP systolic 121–146; BP diastolic 69–90; PULSE 85–96; RESP 12–18; TEMP 36–36.9; O2SAT 90–96; BMI 63.3
[2023-04-06 00:31] LABS: Glucose, Whole Blood 83 mg/dL (60-115)
[2023-04-06 04:58] LABS: MANUAL DIFF FLAG NO
[2023-04-06 04:58] LABS: VBG Base Excess 15.2 mmol/L; VBG HCO3 40 mmol/L (22-26); VBG pCO2 53 mmHg; VBG pH 7.49 (7.32-7.43); VBG pO2 34 mmHg
[2023-04-06 04:59] LABS: Venous Blood Gas Refer to POC result
[2023-04-06 05:03] LABS: Basophils Percent Auto 0.2 % (0-2); Eosinophils Absolute Auto 0.4 X10*3/uL (0.0-0.4); Eosinophils Percent Auto 3.1 % (0-4); Hematocrit 34.5 % (37.0-47.0); Hemoglobin 10.4 g/dl (12.0-16.0); Imm Gran Abs Auto 0.08 X10*3/uL (0.00-0.03); Imm Gran Pct Auto 0.6 % (0.0-0.4); Lymphocytes Absolute Auto 1.5 X10*3/uL (1.2-4.9); Lymphocytes Percent Auto 11.5 % (20-40); Mean Corpuscular HGB Conc 30.1 g/dl (31.0-35.0); Mean Corpuscular Hemoglobin 25.2 pg (27.0-33.0); Mean Corpuscular Volume 83.7 fL (80.0-98.0); Mean Platelet Volume 10.4 fL (9.4-12.3); Monocytes Percent Auto 8.1 % (2-11); Neutrophils Absolute Auto 9.8 x10*3/uL (2.0-8.3); Neutrophils Percent Auto 76.5 % (45-73); Platelet Count 444 X10*3/uL (160-400); Red Blood Count 4.12 X10*6/uL (4.20-5.50); Red Cell Distribution Width 16.3 % (11.0-16.0); White Blood Count 12.8 X10*3/uL (4.8-10.8)
[2023-04-06 05:17] LABS: Anion Gap 13 (12-20); Blood Urea Nitrogen 9 mg/dL (9-16); Calcium 9.4 mg/dL (8.4-10.2); Carbon Dioxide 33 mmol/L (22-29); Chloride 101 mmol/L (96-108); Creatinine Clr Calc Pharmacy 131.1; Estimated Glomerular Filt Rate > 60; Glucose Random 143 mg/dL (60-115); Phosphorus 4.2 mg/dL (2.7-4.5); Potassium 3.7 mmol/L (3.3-5.1); Sodium 143 mmol/L (135-145)
[2023-04-06] MEDS: dilTIAZem HCL 60 MG TABLET 120 MG PO (05:42)
[2023-04-06] MEDS: Albuterol/Iprat 2.5/0.5MG 3 ML AMPUL.NEB INHALE ×2 (07:34→11:29)
[2023-04-06] MEDS: 0.9 % Sodium Chloride Flush 3 ML SYRINGE IVFLUSH ×2 (07:39)
[2023-04-06] MEDS: Insulin Glargine,Hum.rec.anlog 100 UNIT/ML 10 ML VIAL 35 UNIT SUBCUT (07:40)
[2023-04-06] MEDS: Lidocaine 4 % Patch ADH..PATCH 1 PATCH TRANSDERMA (07:40)
[2023-04-06] MEDS: Digoxin 0.25 MG TABLET PO (07:40)
[2023-04-06] MEDS: Apixaban 5 MG TABLET PO (07:40)
--- NOTE | 2023-04-06 08:17 | MHC.CM.PN ---
Call placed to Lucille RN at [facility]: d/c remains scheduled for 12pm today. Updated labs, VS and meds sent via [facility]. Call placed to [facility]: ALS transport remains scheduled for 12pm today: confirmed w/Tr from respiratory that an RT has been arranged to accompany pt. Discussed updates w/Dr. 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 Day will amend the D/C summary to note d/c date of 04/06. Pt and spouse updated on 12pm transfer time.
--- NOTE | 2023-04-06 08:58 | PM.CCN ---
Critical Care Event Note Summary Date of Service: 04/06/23 Code activated: No ( a complete discharge summary summarizing the entire admission and history ) Narrative: This case had a high probability of a clinically significant, sudden, or life threatening deterioration of this patient's condition which required my full and direct attention, intervention and personal management. Critical Care Time (minutes): 25 Comment: the summary from yesterday on 04/05/2023 was done in its entirety representing the entirety of this admission and there is absolutely no change in the last 24 hours all resources in the hospital started waiting for an insurance authorization that somehow never came to pass yesterday and she basically is completely asymptomatic simply on a trach mask just for oxygenation tolerating her diet lab work is is entirely normal and examination is completely and utterly unchanged so she is in in good condition to be transported to the long-term acute care facility without equivocation
[2023-04-06] MEDS: Acetaminophen 325 MG TABLET 650 MG PO (09:34)
[2023-04-06] MEDS: Chlorhexidine Gluc Oral Rinse 15 ML MOUTHWASH BUCCAL (09:34)
[2023-04-06 11:51] LABS: Glucose, Whole Blood 164 mg/dL (60-115)
== END 2023-04-06 11:57 | disposition short-term general hospital (02) | DRG 5 ==
LOC: HO.ED 09:50 → HO.EDOVER 14:46 → HO.IMC 03-24 11:55 → HO.ICU 03-27 12:18
PROVIDERS: Hospitalist; Internal Medicine Critical Care Medicine; Nurse Practitioner Family; Physician Assistant; Physician Assistant Medical; Student in an Organized Health Care Education/Training Program; Surgery; Admitting Provider Nurse Practitioner Acute Care; Emergency Provider Emergency Medicine; PCP Internal Medicine; Visit Provider Internal Medicine Cardiovascular Disease
PROC: 0B113F4 Bypass Trachea to Cutaneous with Tracheostomy Device, Percutaneous Approach (ICD-10-PCS; principal; 2023-03-28 13:20)
PROC: 0DH63UZ Insertion of Feeding Device into Stomach, Percutaneous Approach (ICD-10-PCS; CPT 43246; 2023-03-28 13:20)
PROC: 0B21XFZ Change Tracheostomy Device in Trachea, External Approach (ICD-10-PCS; principal; 2023-03-29 09:00)
DX: J44.1 Chronic obstructive pulmonary disease with (acute) exacerbation (principal); I50.33 Acute on chronic diastolic (congestive) heart failure; J15.212 Pneumonia due to Methicillin resistant Staphylococcus aureus; J96.21 Acute and chronic respiratory failure with hypoxia; I27.81 Cor pulmonale (chronic); E87.3 Alkalosis; E66.2 Morbid (severe) obesity with alveolar hypoventilation; Z68.44 Body mass index [BMI] 60.0-69.9, adult; I48.19 Other persistent atrial fibrillation; Z99.81 Dependence on supplemental oxygen; J98.11 Atelectasis; J96.22 Acute and chronic respiratory failure with hypercapnia; E87.5 Hyperkalemia; E11.65 Type 2 diabetes mellitus with hyperglycemia; Z71.3 Dietary counseling and surveillance; Z20.822 Contact with and (suspected) exposure to COVID-19; Z87.891 Personal history of nicotine dependence; Z79.4 Long term (current) use of insulin; Z79.84 Long term (current) use of oral hypoglycemic drugs; Z79.01 Long term (current) use of anticoagulants; Z79.899 Other long term (current) drug therapy
CPT/HCPCS: 36415; 36600; 71045; 80048; 80053; 80202; 80307; 82040; 82803; 82947; 83605; 83690; 83735; 83880; 84100; 84484; 85025; 85027; 85610; 85730; 86850; 86900; 86901; 87040; 87070; 87077; 87081; 87186; 87205; 87635; 87640; 87641; 92950; 93005; 94002; 94003; 94640; 94660; 99285; C1758; J0637; J0690; J1100; J1650; J1885; J1940; J2060; J2250; J2270; J2371; J2405; J2543; J2795; J2920; J2930; J3010; J3370; J3371

== ENCOUNTER → 2023-03-23 14:24 | Outpatient (BNV) | payer OTHER, SELFPAY | PROVIDERS: Admitting Provider Nurse Practitioner Acute Care; Emergency Provider Emergency Medicine; Visit Provider Physician Assistant Surgical | DX: J96.21 Acute and chronic respiratory failure with hypoxia (principal); Z93.0 Tracheostomy status; Z93.1 Gastrostomy status | CPT/HCPCS: 31502; 31600; 43246; 99223; 99232; 99233; 99499 ==

== ENCOUNTER → 2023-03-23 14:24 | Outpatient (BNV) | payer OTHER, SELFPAY | PROVIDERS: Admitting Provider Nurse Practitioner Acute Care; Emergency Provider Emergency Medicine; Visit Provider Internal Medicine Cardiovascular Disease | DX: I48.91 Unspecified atrial fibrillation (principal); J44.9 Chronic obstructive pulmonary disease, unspecified; G47.33 Obstructive sleep apnea (adult) (pediatric); Z99.81 Dependence on supplemental oxygen; J96.21 Acute and chronic respiratory failure with hypoxia; J96.22 Acute and chronic respiratory failure with hypercapnia | CPT/HCPCS: 99222; 99233 ==

== ENCOUNTER → 2023-03-23 14:24 | Outpatient (BNV) | payer OTHER, SELFPAY | PROVIDERS: Admitting Provider Nurse Practitioner Acute Care; Emergency Provider Emergency Medicine; Visit Provider Internal Medicine Critical Care Medicine | DX: J44.9 Chronic obstructive pulmonary disease, unspecified (principal); I48.91 Unspecified atrial fibrillation; Z93.0 Tracheostomy status; Z99.81 Dependence on supplemental oxygen | CPT/HCPCS: 99239; 99291; 99499 ==

== ENCOUNTER → 2023-03-23 14:24 | Outpatient (BNV) | payer OTHER, SELFPAY | PROVIDERS: Admitting Provider Nurse Practitioner Acute Care; Emergency Provider Emergency Medicine; Visit Provider Nurse Practitioner Acute Care | DX: J44.1 Chronic obstructive pulmonary disease with (acute) exacerbation (principal); J96.01 Acute respiratory failure with hypoxia; I48.91 Unspecified atrial fibrillation; E11.9 Type 2 diabetes mellitus without complications; G47.33 Obstructive sleep apnea (adult) (pediatric) | CPT/HCPCS: 99223; 99232; 99233 ==